=== PATIENT | female | born 1945 | race Caucasian/White ===

== ENCOUNTER 2018-02-26 01:21 | Outpatient (CLI) | payer MEDICARE, OTHER, SELFPAY ==
--- NOTE | 2018-02-26 10:20 | DI.MAMMO_ITS ---
SYMPTOMS/DIAGNOSIS: SCREENING, Z12.31 MAMMOGRAM: Mammograms were interpreted according to the usual protocol including computer analysis with CAD system, tomosynthesis and C view imaging. The breast tissue is of moderate radiodensity. When compared with prior images again noted are the two small well circumscribed nodules in the lateral portion of the left breast unchanged. There are no suspicious calcifications in either breast. SUMMARY: No evidence of malignancy, Category I, yearly screening mammography is recommended. Breast density Category B. SA ASSESSMENT OF FINDINGS: Negative. Category 1. Patient will receive a letter notifying them of these results. BI-RADS category B. There are scattered areas of fibroglandular density.
[2018-02-26 10:38] LABS: ALT 31 U/L (12-78); AST 29 U/L (15-37); Albumin 3.8 g/dL (3.4-5.0); Alkaline Phosphatase 129 U/L (46-116); Anion Gap 11.5 mmol/L (3-11); BUN 14 mg/dL (7-18); Bilirubin, Total 0.7 mg/dL (0.2-1.0); CO2 25.5 mmol/L (21.0-32.0); CREATININE 0.64 mg/dL (0.55-1.02); Calcium 8.9 mg/dL (8.5-10.1); Chloride 104 mmol/L (98-107); Glucose 110 mg/dL (70-100); Magnesium 1.9 mg/dL (1.8-2.4); Potassium 3.8 mmol/L (3.5-5.1); Sodium 141 mmol/L (136-145); TSH (W/Ref FT4) 1.03 uIU/mL (0.358-3.74); Total Protein 6.9 g/dL (6.4-8.2)
[2018-02-26 14:04] LABS: Cholesterol 183 mg/dL (50-200); HDL Cholesterol 65 mg/dL (40-60); LDL CHOLESTEROL 104 mg/dL (<100); Triglyceride 107 mg/dL (30-150); Vitamin B12 1552 pg/mL (193-986)
== END 2018-02-26 01:41 ==
PROVIDERS: PCP Family Medicine; Visit Provider Family Medicine
DX: Z12.31 Encounter for screening mammogram for malignant neoplasm of breast (principal); D51.1 Vitamin B12 deficiency anemia due to selective vitamin B12 malabsorption with proteinuria; E78.5 Hyperlipidemia, unspecified; E03.9 Hypothyroidism, unspecified; I10 Essential (primary) hypertension
CPT/HCPCS: 36415; 77063; 77067; 80053; 80061; 83721; 82607; 83735; 84443

== ENCOUNTER 2018-11-24 01:00 | Outpatient (CLI) | payer MEDICARE, OTHER, SELFPAY ==
--- NOTE | 2018-11-24 07:42 | DI.US_ITS ---
SYMPTOM/DIAGNOSIS: RUQ ABD PAIN, R10.9 ABDOMEN ULTRASOUND: Routine examination was performed. Comparison is made with 02/01/14. The aorta is of normal caliber. The inferior vena cava is unremarkable. The liver measures 15 cm. in length. No hepatic mass is seen. The patient is status post cholecystectomy. The common duct is within normal limits at .7 cm. The pancreas and spleen are unremarkable. The kidneys are normal in size. No solid renal mass, calculus or obstruction is seen. There are echolucent areas in the pelves bilaterally. These can be visualized on prior examinations and likely reflect parapelvic cysts. IMPRESSION: No evidence of an acute abdomen. Status post cholecystectomy and bilateral parapelvic cysts.
--- NOTE | 2018-11-24 07:42 | DI.RAD_ITS ---
SYMPTOM/DIAGNOSIS: LOWER THORACIC PAIN, M54.6 THORACIC SPINE: AP and lateral views. There is normal alignment. Moderately severe degenerative changes are present throughout the thoracic spine. No acute fractures or subluxations are seen. The paraspinal lines appear unremarkable. IMPRESSION: Moderately severe degenerative changes in the thoracic spine.
== END 2018-11-24 01:20 ==
PROVIDERS: PCP Family Medicine; Visit Provider Family Medicine
DX: R10.11 Right upper quadrant pain (principal); M54.6 Pain in thoracic spine; Z90.49 Acquired absence of other specified parts of digestive tract; M47.814 Spondylosis without myelopathy or radiculopathy, thoracic region
CPT/HCPCS: 72072; 76700

== ENCOUNTER 2019-01-22 01:52 | Outpatient (CLI) | payer MEDICARE, OTHER, SELFPAY ==
[2019-01-22 10:21] LABS: HCT 39.2 % (36.0-46.0); HGB 12.8 g/dL (12.0-15.5); Mean Corp. HGB Concentration 32.7 g/dL (32.0-36.0); Mean Corpuscular Hemoglobin 29.6 pg (27.0-33.0); Mean Corpuscular Volume 90.7 fL (80-95); Mean Platelet Volume 9.4 fL (8.0-11.0); Platelet Count 271 x1000/uL (130-400); RBC 4.32 m/cumm (4.00-5.20); RBC Distribution Width 13.7 % (11.7-14.6); White Blood Cell Count 6.63 k/cumm (4.4-10.8)
[2019-01-22 11:11] LABS: Magnesium 2.1 mg/dL (1.8-2.4); TSH (W/Ref FT4) 0.84 uIU/mL (0.36-3.74)
== END 2019-01-22 02:12 ==
PROVIDERS: PCP Family Medicine; Visit Provider Family Medicine
DX: I10 Essential (primary) hypertension (principal); J45.909 Unspecified asthma, uncomplicated
CPT/HCPCS: 36415; 85027; 83735; 84443

== ENCOUNTER 2019-07-05 11:19 | Outpatient (CLI) | payer MEDICARE, OTHER, SELFPAY ==
--- NOTE | 2019-07-05 14:00 | DI.RAD_ITS ---
EXAM: XR LUMBAR SPINE COMPLETE CLINICAL HISTORY: chronic right LBP, M47.899 SPONDYLOSIS TECHNIQUE: COMPARISON: LUMBAR SPINE COMPLETE from 02/01/2014 FINDINGS: Five views were obtained. There are moderate degenerative changes of the SI joints bilaterally. The re are prominent hypertrophic degenerative changes of the facet joints throughout the lumbar region. There is slight anterior pseudo spondylolisthesis of L4 on L5 and also of L5-S1, probably unchanged from prior films of January 2014. Vertebral endplate hypertrophic changes noted in lower thoracic and upper lumbar region. These findings spare the T12-L1 level. No evidence of fracture. No gross spondylolysis. IMPRESSION: Degenerative changes, little interval change in appearance from 2013. No evidence of fracture.
--- NOTE | 2019-07-05 14:00 | DI.RAD_ITS ---
EXAM: XR HIP LT COMPLETE AND AP PELVIS CLINICAL HISTORY: HIP PAIN M25.559 TECHNIQUE: Two views were obtained. COMPARISON: THORACIC SPINE from 03/27/2015 FINDINGS: There is mild narrowing of the cartilaginous joint spaces of both hips. There are prominent hypertro phic changes of the acetabula and to a lesser degree the femoral heads bilaterally, right greater basil n left. No other significant bony abnormality seen. IMPRESSION: Moderate bilateral hip DJD.
--- NOTE | 2019-07-05 14:00 | DI.RAD_ITS ---
EXAM: XR CERVICAL SPINE COMP 4-5V CLINICAL HISTORY: neck left shoulder pain, M54.2 CERVICALGIA TECHNIQUE: COMPARISON: No exams were available for comparison FINDINGS: Five views were obtained. Prevertebral soft tissues appear intact. Intervertebral disc spaces are f airly well maintained. There are moderate hypertrophic facet and endplate degenerative changes. Bowen ral foramina appear fairly well maintained as visualized except for possible slight narrowing of righ t 4 5 neural foramen. No fracture. No gross erosive or destructive lesion. IMPRESSION: Cervical spine degenerative changes as described above.
== END 2019-07-05 11:39 ==
PROVIDERS: PCP Family Medicine; Visit Provider Family Medicine
DX: M25.552 Pain in left hip (principal); M54.5 Low back pain; M54.2 Cervicalgia; M47.26 Other spondylosis with radiculopathy, lumbar region; M47.27 Other spondylosis with radiculopathy, lumbosacral region; M47.28 Other spondylosis with radiculopathy, sacral and sacrococcygeal region; M16.0 Bilateral primary osteoarthritis of hip; M47.22 Other spondylosis with radiculopathy, cervical region
CPT/HCPCS: 72050; 72110; 73502

== ENCOUNTER 2019-07-13 12:55 | Outpatient (CLI) | payer MEDICARE, OTHER, SELFPAY ==
--- NOTE | 2019-07-30 09:44 | ZIOP_ITS ---
Date of service: 07/29/19 Time of Service: 12:26 ZIO Patch Social Work Assistant Note: There is a 2-week ZIO patch ordered for the indication of bradycardia. ?The patient was in normal sinus rhythm for majority of the recording. (Maximum heart rate 160, minimum heart rate 50, average heart rate 66) ?There were 44 episodes of supraventricular tachycardia with the longest lasting 13 seconds. ?There were occasional (2.9%) supraventricular ectopic beats. ?There were no episodes of ventricular tachycardia and rare (less than 1%) single ventricular ectopic beats. ?Patient triggered events were associated with sinus rhythm clinical supraventricular ectopic beats and premature ventricular contractions. ?There were no episodes of atrial fibrillation, no pauses greater than 3 seconds and no evidence of high degree heart block. CC: Dictated by: KAREL VERONICA MD Dictated:: 1226 <Electronically signed by Karel Veornica M.D.> 07/29/19 1229 Transcribed Date: 07/29/19 Transcribed Time: 1226By: CIARRA This report was cut and pasted from [id number] and attached to the correct V# 07/29 @ 0985
== END 2019-07-13 13:15 ==
PROVIDERS: PCP Family Medicine; Visit Provider Family Medicine
DX: R00.1 Bradycardia, unspecified (principal); I47.1 Supraventricular tachycardia; I49.3 Ventricular premature depolarization
CPT/HCPCS: 0296T

== ENCOUNTER 2019-07-29 12:26 | Outpatient (CLI) | payer MEDICARE, OTHER, SELFPAY | END 2019-07-29 12:46 | PROVIDERS: PCP Family Medicine; Referring Provider Family Medicine; Visit Provider Internal Medicine Cardiovascular Disease | DX: R00.1 Bradycardia, unspecified (principal); I47.1 Supraventricular tachycardia; I49.3 Ventricular premature depolarization | CPT/HCPCS: 0298T ==

== ENCOUNTER 2019-10-08 01:40 | Outpatient (CLI) | payer MEDICARE, OTHER, SELFPAY ==
[2019-10-08 12:21] LABS: TSH (W/Ref FT4) 0.38 uIU/mL (0.36-3.74); Vitamin B12 1297 pg/mL (193-986)
== END 2019-10-08 02:00 ==
PROVIDERS: PCP Family Medicine; Visit Provider Family Medicine
DX: E03.9 Hypothyroidism, unspecified (principal); E53.8 Deficiency of other specified B group vitamins
CPT/HCPCS: 36415; 82607; 84443

== ENCOUNTER 2019-11-02 01:19 | Outpatient (CLI) | payer MEDICARE, OTHER, SELFPAY ==
[2019-11-02 10:40] LABS: HCT 40.7 % (36.0-46.0); HGB 13.6 g/dL (12.0-15.5); Mean Corp. HGB Concentration 33.4 g/dL (32.0-36.0); Mean Corpuscular Hemoglobin 30.2 pg (27.0-33.0); Mean Corpuscular Volume 90.4 fL (80-95); Mean Platelet Volume 9.7 fL (8.0-11.0); Platelet Count 268 x1000/uL (130-400); RBC Distribution Width 13.8 % (11.7-14.6); White Blood Cell Count 6.71 k/cumm (4.4-10.8)
[2019-11-02 13:54] LABS: ALT 27 U/L (14-59); AST 32 U/L (15-37); Albumin 3.9 g/dL (3.4-5.0); Alkaline Phosphatase 105 U/L (46-116); BUN 13 mg/dL (7-18); Bilirubin, Total 0.6 mg/dL (0.2-1.0); CREATININE 0.88 mg/dL (0.55-1.02); Calcium 9.3 mg/dL (8.5-10.1); Chloride 107 mmol/L (98-107); Glucose 115 mg/dL (74-106); Potassium 4.5 mmol/L (3.5-5.1); Sodium 144 mmol/L (136-145); Vitamin B12 1020 pg/mL (193-986)
== END 2019-11-02 01:39 ==
PROVIDERS: PCP Family Medicine; Visit Provider Family Medicine
DX: E53.8 Deficiency of other specified B group vitamins (principal); E78.5 Hyperlipidemia, unspecified; I10 Essential (primary) hypertension
CPT/HCPCS: 36415; 80053; 85027; 82607

== ENCOUNTER 2020-02-15 00:35 | Outpatient (CLI) | payer MEDICARE, OTHER, SELFPAY ==
--- NOTE | 2020-02-15 12:49 | DI.MAMMO_ITS ---
EXAM: MAMMO SCREENING CLINICAL HISTORY: screening,Z12.39 TECHNIQUE: Mammograms were interpreted according to the usual protocol including computer analysis w [employer] CAD system, tomosynthesis and C-view imaging. COMPARISON: FINDINGS: The breasts are of moderate density. There are few small areas of nodularity seen bilaterally consis tent with intramammary lymph nodes or cysts. There is an irregular breast mass in the lateral aspect of the left breast, on prior examinations including February 2018 this appeared well-circumscribed, o n today's examination there is question of increased intralesional radiodensity and irregular border. Spot compression views and ultrasound requested further evaluation. No other significant change seen. IMPRESSION: Additional mammographic views of left breast and left breast ultrasound requested as described above . BI-RADS Category 0 - Assessment Incomplete: Need additional imaging evaluation Breast Density - Category B - Scattered areas of fibroglandular density
== END 2020-02-15 00:55 ==
PROVIDERS: PCP Family Medicine; Visit Provider Family Medicine
DX: Z12.31 Encounter for screening mammogram for malignant neoplasm of breast (principal); R92.8 Other abnormal and inconclusive findings on diagnostic imaging of breast
CPT/HCPCS: 77063; 77067

== ENCOUNTER 2020-02-18 04:02 | Outpatient (CLI) | payer MEDICARE, OTHER, SELFPAY ==
--- NOTE | 2020-02-18 | DI.US_ITS ---
EXAM: MG MAMMO SCREEN CALL BACK UNI CLINICAL HISTORY: F/U MAMMO, IRREGULAR LT BREAST MASS,? INCREASED RADIODENSITY AND IRREGULAR TECHNIQUE: Mammograms were interpreted according to the usual protocol including computer analysis w ith CAD system, tomosynthesis and C-view imaging. COMPARISON: FINDINGS: Additional mammographic views of the left breast and left breast ultrasound are interpreted in conjun ction. These examinations were obtained to evaluate an area nodularity of the lateral retroareolar p ortion the breast seen recent mammogram. Additional mammographic views show a high density somewhat irregular border lesion. This measures up to about 11 millimeters in diameter. Ultrasound shows a 7 millimeter in diameter irregular predominantly hypoechoic mass with posterior acoustic shadowing. T he findings are indeterminate for malignancy, this is a new lesion biopsy is recommended. IMPRESSION: Biopsy recommended for new indeterminate suspicious left breast lesion as described above. Biopsy ma y be accomplished with ultrasound guidance. BI-RADS Category 4 - Suspicious Abnormality: Biopsy should be considered Breast Density - Category B - Scattered areas of fibroglandular density
== END 2020-02-18 04:22 ==
PROVIDERS: PCP Family Medicine; Visit Provider Family Medicine
DX: R92.8 Other abnormal and inconclusive findings on diagnostic imaging of breast (principal)
CPT/HCPCS: 76642; 77063; 77067

== ENCOUNTER 2020-09-19 13:44 | Outpatient (REF) | payer MEDICARE, OTHER, SELFPAY ==
[2020-09-19 22:19] LABS: ALT 34 U/L (14-59); AST 30 U/L (15-37); Albumin 3.8 g/dL (3.4-5.0); Alkaline Phosphatase 120 U/L (46-116); Anion Gap 8.3 mmol/L (3-11); BUN 11 mg/dL (7-18); Bilirubin, Total 0.6 mg/dL (0.2-1.0); CO2 26.7 mmol/L (21.0-32.0); CREATININE 0.6 mg/dL (0.55-1.02); Calcium 8.7 mg/dL (8.5-10.1); Calculated LDL 63 mg/dL (<100); Chloride 107 mmol/L (98-107); Cholesterol 148 mg/dL (<200); Glucose 108 mg/dL (74-106); HDL Cholesterol 63 mg/dL (40-60); Potassium 4.4 mmol/L (3.5-5.1); Sodium 142 mmol/L (136-145); TSH (W/Ref FT4) 0.26 uIU/mL (0.36-3.74); Total Protein 6.6 g/dL (6.4-8.2); Triglyceride 111 mg/dL (<150); Vitamin B12 1074 pg/mL (193-986)
[2020-09-19 22:52] LABS: FREE T4 1.12 ng/dL (0.76-1.46)
[2020-09-21 01:12] LABS: Vitamin D 25 Total 63.7 ng/mL (30-100)
== END 2020-09-19 13:45 | disposition home or self-care (01) ==
LOC: LBN 13:44
PROVIDERS: PCP Family Medicine; Visit Provider Family Medicine
DX: I10 Essential (primary) hypertension (principal); I25.10 Atherosclerotic heart disease of native coronary artery without angina pectoris; E03.9 Hypothyroidism, unspecified; D51.1 Vitamin B12 deficiency anemia due to selective vitamin B12 malabsorption with proteinuria; E55.9 Vitamin D deficiency, unspecified; M85.80 Other specified disorders of bone density and structure, unspecified site
CPT/HCPCS: 80053; 80061; 82306; 82607; 84439; 84443

== ENCOUNTER 2021-07-06 04:01 | Outpatient (CLI) | payer MEDICARE, OTHER, SELFPAY ==
[2021-07-06 13:06] LABS: ALT 34 U/L (14-59); AST 32 U/L (15-37); Albumin 3.9 g/dL (3.4-5.0); Alkaline Phosphatase 138 U/L (46-116); Anion Gap 6.7 mmol/L (3-11); BUN 12 mg/dL (7-18); Bilirubin, Total 0.6 mg/dL (0.2-1.0); CO2 30.3 mmol/L (21.0-32.0); CREATININE 0.6 mg/dL (0.55-1.02); Calcium 8.6 mg/dL (8.5-10.1); Chloride 104 mmol/L (98-107); Glucose 106 mg/dL (74-106); Potassium 4.5 mmol/L (3.5-5.1); Sodium 141 mmol/L (136-145); TSH (W/Ref FT4) 0.76 uIU/mL (0.36-3.74); Vitamin B12 1045 pg/mL (193-986)
== END 2021-07-06 04:02 | disposition home or self-care (01) ==
LOC: LBO 04:01
PROVIDERS: PCP Family Medicine; Visit Provider Family Medicine
DX: D51.1 Vitamin B12 deficiency anemia due to selective vitamin B12 malabsorption with proteinuria (principal); E03.9 Hypothyroidism, unspecified; E78.5 Hyperlipidemia, unspecified; I10 Essential (primary) hypertension
CPT/HCPCS: 36415; 80053; 82607; 84443

== ENCOUNTER 2022-03-08 01:51 | Outpatient (CLI) | payer MEDICARE, SELFPAY ==
--- OUTSIDE RECORDS SUMMARY | 2022-03-08 01:55 | XMS_ITS | Encounter Summary ---
:1945 Author Organization [facility] [place] [address] Care Team Providers Name Role Phone Quin Rojas MD Primary Care Provider Encounter Details Date Type Department Care Team Description 02/15/2020 Ancillary Procedure Radiology Library at Quin Biggs MD [facility] [address] [address] [place], [place] [phone] (Wo rk) [phone] Social History Tobacco Use Types Packs/Day Years Used Date Never Smoker Smokeless Tobacco: Never Used Alcohol Use Standard Drinks/Week Comments Yes 0 (1 standard drink = 0.6 oz pure alcoho l) rare at a holiday Alcohol Habits Answer Date Recorded How often do you have a drink containing alcohol? Monthly or less 02/13/2019 How many drinks containing alcohol do you have on a 1 or 2 02/13/2019 typical day when you are drinking? How often do you have six or more drinks on one Never 02/13/2019 occasion? Comment: rare at a holiday 02/13/2019 Sex Assigned at Date Recorded Not on file documented as of this encounter Plan of Treatment Upcoming Encounters Date Type Specialty Care Team Description 09/02/2022 Office Visit Cardiology Patrice Burkett MD [facility] [address] [place], [place] [address] (Wo rk) 11/25/2022 Office Visit Dermatology Kole Mccain MD [address] DERMATOLOGY [place], [place] [address] (Wo rk) documented as of this encounter Procedures Procedure Name Priority Date/Time Associated Diagnosis Comme nts FILM LIBRARY Routine 02/15/2020 12:00 AM Results for this STORAGE ONLY MAMMO EDT procedure are in the results section. documented in this encounter Results Film Library- Storage Only Mammo (02/15/2020 12:00 AM EDT) Specimen (Source) Anatomical Location Collection Method / Collectio n Time Received Time / Laterality Volume Narrative RAD - 02/29/2020 10:48 AM EDT This exam is auto-finalizing. It's purpo se is for storage only. Quin Rojas MD G FILM LIBRARY ORDERABLES Performing Organization Address City/State/ZIP Code Phon e Number [place], [place] documented in this encounter Visit Diagnoses Not on filedocumented in this encounter Care Teams Temple Meat Cutter Relationship Specialty Start Date End Date Quin Rojas MD PCP - General 04/03/[address] [place] [address] [place] [address] documented as of this encounter
--- OUTSIDE RECORDS SUMMARY | 2022-03-08 01:55 | XMS_ITS | Encounter Summary ---
:1945 Author Organization [facility] [place] [address] Care Team Providers Name Role Phone Quin Rojas MD Primary Care Provider Reason for Visit Reason Comments Medication Refill Encounter Details Date Type Department Care Team Description 12/13/2020 Refill Cardiology at [facility] Patrice Burkett MD Medication Refill [address] [place] [address] [place] [address] [phone] (Wo rk) Social History Tobacco Use Types Packs/Day Years Used Date Never Smoker Smokeless Tobacco: Never Used Alcohol Use Standard Drinks/Week Comments Not Currently 0 (1 standard drink = 0.6 oz [...] 09/02/2022 Office Visit Cardiology Patrice Burkett MD [facility] [address] [place], [place] [address] (Wo rk) 11/25/2022 Office Visit Dermatology Kole Mccain MD [address] [facility] DERMATOLOGY [place], [place] [address] (Wo rk) documented as of this encounter Visit Diagnoses Diagnosis Atherosclerosis of pauma coronary arter y of pauma heart without angina pectoris documented in this encounter Care Teams Manager Ob Relationship Specialty Start Date End Date Quin Rojas MD PCP - General 04/03/[address] [place] [address] documented as of this encounter
--- OUTSIDE RECORDS SUMMARY | 2022-03-08 01:55 | XMS_ITS | Encounter Summary ---
:1945 [place] [address] Care Team Providers Name Role Phone Quin Rojas MD Primary Care Provider Encounter Details Date Type Department Care Team Description 01/28/2020 Refill Cardiology at [facility] Patrice Burkett MD [address] [place] [address] [place] [address] [place] [address] [phone] (Wo rk) Social History Tobacco Use Types [...] on file documented as of this encounter Miscellaneous Notes Telephone Encounter - Arlene Bills - 01/28/2020 10:06 AM EDT Patient called asking for a [phone] documented in this encounter Plan of Treatment Upcoming Encounters Date Type Specialty Care Team Description 09/02/2022 Office Visit Cardiology Patrice Burkett MD [facility] [address] [place], [place] [address] (Wo rk) 11/25/2022 Office Visit Dermatology Kole Mccain MD [address] [place] [address] DERMATOLOGY [place], [place] [address] (Wo rk) documented as of this encounter Visit Diagnoses Diagnosis Chest pain, unspecified type documented in this encounter Care Teams Audiovisual Aids Technician Relationship Specialty Start Date End Date Quin Rojas MD PCP - General 04/03/[address] [place] [address] documented as of this encounter
--- OUTSIDE RECORDS SUMMARY | 2022-03-08 01:55 | XMS_ITS | Encounter Summary ---
:1945 Author Organization [facility] [place] [address] Care Team Providers Name Role Phone Quin Rojas MD Primary Care Provider Reason for Visit Reason Comments Medication Refill Encounter Details Date Type Department Care Team Description 10/01/2021 Refill Dermatology at [facility] Kole Chavis MD [address] [facility] [address] [place] [address] DERMATOLOGY [phone] [place], [place] [address] (Wo rk) Social History Tobacco Use Types [...] 09/02/2022 Office Visit Cardiology Patrice Burkett MD [facility] [address] [place], [place] [address] (Wo rk) 11/25/2022 Office Visit Dermatology Kole Mccain MD [address] [facility] DERMATOLOGY [place], [place] [address] (Wo rk) documented as of this encounter Visit Diagnoses Not on filedocumented in this encounter Care Teams Guest Service Host Relationship Specialty Start Date End Date Quin Rojas MD PCP - General 04/03/[address] [place], [place] [address] documented as of this encounter
--- OUTSIDE RECORDS SUMMARY | 2022-03-08 01:55 | XMS_ITS | Encounter Summary ---
:1945 Author Organization [facility] [address] Care Team Providers Name Role Phone Quin Rojas MD Primary Care Provider Encounter Details Date Type Department Care Team Description 02/21/2020 [facility] [place] [phone] Social History Tobacco Use Types Packs/Day Years [...] this encounter Miscellaneous Notes Telephone Encounter - Shikha Herrera - 02/21/2020 1:19 PM EDT Albina Thompson 1945 [id number] Referring provider: Quin Rojas Date of Referral: 02/21/20 Please review outside breast imaging dated: 02/18/20 Reason for exam and clinical history:Left breast mass Category:4 Questions to be answered:Bx more imaing Sending Institution: [facility] Patient would like treatment at:[facility] [place] Call pt at: documented in this encounter Plan of Treatment Upcoming Encounters Date Type Specialty Care Team Description 09/02/2022 Office Visit Cardiology Patrice Burkett MD [facility] [place] [address] [place] [address] (Wo rk) 11/25/2022 Office Visit Dermatology Kole Mccain MD [address] [facility] DERMATOLOGY [place], [place] [address] (Wo rk) documented as of this encounter Visit Diagnoses Not on filedocumented in this encounter Care Teams Waste Collection Driver Relationship Specialty Start Date End Date Quin Rojas MD PCP - General 04/03/[address] [place], [place] [address] documented as of this encounter
--- OUTSIDE RECORDS SUMMARY | 2022-03-08 01:55 | XMS_ITS | Encounter Summary ---
:1945 [place] [address] Care Team Providers Name Role Phone Quin Rojas MD Primary Care Provider Reason for Visit Reason Comments Coronary Artery Disease Palpitations Encounter Details Date Type Department Care Team Description 03/05/2022 Office Visit Cardiology at Patrice Burkett, ASCVD (ar teriosclerotic cardiovascular disease); Barak JIMENEZ Palpitations [address] [place], [place], [place] [phone] Social History Tobacco Use Types Packs/Day Years [...] on file documented as of this encounter Last Filed Vital Signs Vital Sign Reading Time Taken Comments Blood Pressure 132/58 03/05/2022 2:56 PM EDT Pulse 83 03/05/2022 2:56 PM EDT Temperature - - Respiratory Rate 18 03/05/2022 2:56 PM EDT Oxygen Saturation - - Inhaled Oxygen Concentration - - Weight 63.5 kg (140 lb) 03/05/2022 2:56 PM EDT Height 152.4 cm (5') 03/05/2022 2:56 PM EDT Body Mass Index 27.34 03/05/2022 2:56 PM EDT documented in this encounter Progress Notes Patrice Burkett MD - 03/05/2022 2:40 PM EDT Images from the original note were not included. Subjective: Patient ID: Albina Thompson is a 76 y.o. female who presents on follow-up for: Chief Complaint Patient presents with ??? Coronary Artery Disease ??? Palpitations HPI Last seen by me 08/2021, at which time stress testing was offered for CCS I-ii angina. However, this was not obtained. Since then, she has been doing well. She has been bsuy raking leaves and preparing for winter- this level of activity is without angina nor untoward dyspnea. bp well controlled Current Outpatient Medications: ??? donepeziL (Aricept) 5 mg Tablet, Take 5 mg by mouth daily. Start with one half tablet daily, Disp: , Rfl: ??? amoxicillin-clavulanate (Augmentin) 875-125 mg Tablet, Take 1 tablet by mouth 2 times daily., Disp: , Rfl: ??? nitroGLYcerin (Nitrostat) 0.4 mg Tablet, Sublingual, PLACE 1 TABLET UNDER THE TONGUE EVERY 5 MINUTES NEEDED FOR CHEST PAIN(MAX 3 DOSES PER DAY), Disp: 25 tablet, Rfl: 11 ??? meclizine (Antivert) 25 mg Tablet, Take 25 mg by mouth 3 times daily as needed for Dizziness., Disp: , Rfl: ??? multivitamin Capsule, Take 1 tablet by mouth., Disp: , Rfl: ??? cyanocobalamin, Vitamin B-12, (Vitamin B-12) 1,000 mcg Tablet, Take 1,000 mcg by mouth daily., Disp: , Rfl: ??? ubiquinone (coenzyme Q10) 10 mg Capsule, Take 10 mg by mouth nightly., Disp: , Rfl: ??? metoprolol succinate XL (Toprol-XL) 25 mg Tablet Sustained Release 24 hr, Take 12.5 mg by mouth daily., Disp: , Rfl: ??? rosuvastatin (Crestor) 5 mg Tablet, Take 1 tablet by mouth nightly., Disp: 90 tablet, Rfl: 3 ??? VENTOLIN HFA 90 mcg/actuation HFA Aerosol Inhaler, Inhale 2 puffs into the lungs 2 times daily as needed., Disp: , Rfl: 1 ??? fluticasone (FLONASE) 50 mcg/actuation [place], Suspension, 2 sprays by Each Nare route nightly., Disp: , Rfl: ??? cycloSPORINE (RESTASIS) 0.05 % Dropperette, 1 drop 2 times daily., Disp: , Rfl: ??? aspirin 81 mg Tablet, Delayed Release (E.C.), Take 81 mg by mouth daily., Disp: , Rfl: ??? cholecalciferol, Vitamin D3, 50 mcg (2,000 unit) Capsule, Take 2,000 Units by mouth daily., Disp: , Rfl: ??? ADVAIR DISKUS 250-50 mcg/dose Disk with Device, Inhale 1 puff into the lungs 2 times daily., Disp: , Rfl: 0 ??? montelukast (SINGULAIR) 10 mg Tablet, Take 10 mg by mouth nightly., Disp: , Rfl: 1 ??? levothyroxine (SYNTHROID) 75 mcg tablet, 75mcg, PO, Once daily, Disp: , Rfl: Patient Active Problem List Diagnosis ??? Uterine prolapse ??? Osteopenia ??? Lactose intolerance ??? Palpitations 2013: negative Holter 03/2019: There were many patient diary events: - Symptoms included: arms weak, quick involuntary breaths, palpitations, short of breath/heavy chest feeling, lightheaded/short of breath, palpitations, short of breath - The majority of these events were correlated with normal sinus rhythm without significant arrhythmia nor ectopy. ??Chest heaviness was described with very ephemeral atrial bigeminy. Conclusion(s): ?? Predominant rhythm is sinus, with normal range and circadian variation No significant supraventricular or ventricular ectopy. ??Of note, the vast majority of SVE was asymptomatic There is no clear electrophysiologic nidus to most of the patient's reported symptoms ??? Hypothyroidism ??? Reflux esophagitis ??? ASCVD (arteriosclerotic cardiovascular disease) 2005: 2 stents to mid LAD and stent to osteal D2 (bifurcation lesion) at [facility] 01/2018- ST II, HR 126, BP 203/72, CP, 1 mm inf and lat ST depressions, normal perfusion and wall notion Norvasc led to diarrhea, Imdur to dizziness/hypotension Cardiac Catheterization: (02/2019) Co dominance Access: 6F RRA Indication: CCS III angina LVEDP 8 Artery Lesion Intervention LM nl LAD p 70 m 70 (ISR) Os D2 70 3.5 x 15 Carter 2.75 x 12 [place] POBA --> 45% residual LCx Mid 85 prox OM1 80 2.75 x 24 Promus 2.5 x 16 Promus RCA Cath 04/2019: without new disease ??? Asthma ??? Hyperlipidemia ??? Rosacea conjunctivitis ??? Primary fibromyalgia syndrome ??? Generalized osteoarthrosis Objective: BP 132/58 (BP Location (NBP): Left arm, Patient Position: Sitting, BP Cuff Sizes: Adult (25-34 cm)) Pulse 83 Resp 18 Ht 152.4 cm (5') Wt 63.5 kg (140 lb) LMP (LMP Unknown) BMI 27.34 kg/m?? Gen: pleasant female in NAD Cor: rrr, s1/s2 of nl character and amplitude, no m/r/g. Estimated RAP not elevated. Carotids with normal upstroke without bruit. Pulm: CTAB. Normal diaphragmatic movement without use of accessory muscles EKG: nsr with pac Assessment and Plan: ASCVD (arteriosclerotic cardiovascular disease) No angina per history - Anti-Thrombosis: asa 81. - Statin: crestor 5 (max tolerated) - Anti-anginals: GTN PRN, toprol 12.5. If when starting Aricept it is noted that the HR decreases to < 60, can stop the toprol Palpitations No issues on current regimen - continue toprol RTC 6p months Patrice Burkett MD documented in this encounter Miscellaneous Notes Assessment & Plan Note - Patrice Burkett MD - 03/05/2022 3:26 PM EDTAssociated Problem(s): Palpitations No issues on current regimen - continue toprol Assessment & Plan Note - Patrice Burkett MD - 03/05/2022 3:25 PM EDTAssociated Problem(s): ASCVD (arteriosclerotic cardiovascular disease) No angina per history - Anti-Thrombosis: asa 81. - Statin: crestor 5 (max tolerated) - Anti-anginals: GTN PRN, toprol 12.5. If when starting Aricept it is noted that the HR decreases to < 60, can stop the toprol documented in this encounter Plan of Treatment Upcoming Encounters Date Type Specialty Care Team Description 09/02/2022 Office Visit Cardiology Patrice Burkett MD [facility] [address] [place] [address] (Wo rk) 11/25/2022 Office Visit Dermatology Kole Mccain MD [address] [facility] DERMATOLOGY [place], [place] [address] (Wo rk) documented as of this encounter Visit Diagnoses Diagnosis ASCVD (arteriosclerotic cardiovascular d isease) Unspecified cardiovascular disease Palpitations documented in this encounter Care Teams A And P Technician Relationship Specialty Start Date End Date Quin Rojas MD PCP - General 04/03/[address] [place] [address] documented as of this encounter
--- OUTSIDE RECORDS SUMMARY | 2022-03-08 01:55 | XMS_ITS | Encounter Summary ---
:1945 Author Organization [facility] [place] [address] Care Team Providers Name Role Phone Quin Rojas MD Primary Care Provider Reason for Visit Reason Comments Coronary Artery Disease Encounter Details Date Type Department Care Team Description [facility] Atheroscl erosis of [place] coronary artery of [place] heart without angina pectoris; Barak JIMENEZ Palpitations [address] [facility] [address] [place], [place], [place] [phone] Social History Tobacco [...] Sign Reading Time Taken Comments Blood Pressure 130/64 01/25/2020 3:24 PM EDT Pulse 94 01/25/2020 3:24 PM EDT Temperature - - Respiratory Rate 18 01/25/2020 3:24 PM EDT Oxygen Saturation - - Inhaled Oxygen Concentration - - Weight 67.6 kg (149 lb) 01/25/2020 3:24 PM EDT Height 154.9 cm (5' 1) 01/25/2020 3:24 PM EDT Body Mass Index 28.15 01/25/2020 3:24 PM EDT documented in this encounter Progress Notes Patrice Burkett MD - 01/25/2020 3:20 PM EDT Images from the original note were not included. Subjective: Patient ID: Albina Thompson is a 74 y.o. female who presents on follow-up for: Chief Complaint Patient presents with ??? Coronary Artery Disease HPI Last seen by me 08/2019 via telephony, at which time midodrine was decreased to 2.5 due to HTN episodes. Since then, midodrine has been weaned off successfully without further orthostasis. She remaisn active, cleaning up the yard of brush with her without exertional chest pain, dyspnea, presyncope. Denies LH, syncope, palpitations, orthopnea, pnd, weight gain, edema. She notes that sometimes durin g strenuous activity she will have to stop and rest. No bleeding on dapt Review of Systems Constitutional, cardiac, respiratory systems otherwise negative Current Outpatient Medications: ??? cyanocobalamin, Vitamin B-12, (Vitamin B-12) 1,000 mcg Tablet, Take 1,000 mcg by mouth daily., Disp: , Rfl: ??? ubiquinone (coenzyme Q10) 10 mg Capsule, Take 10 mg by mouth nightly., Disp: , Rfl: ??? metoprolol succinate XL (Toprol-XL) 25 mg Tablet Sustained Release 24 hr, Take 25 mg by mouth daily. Dose as of November 03 was increased to 25 mg daily. Previous dosing was 12.5 mg (one half tablet) daily., Disp: , Rfl: ??? clopidogreL (Plavix) 75 mg Tablet, Take 1 tablet by mouth daily., Disp: 90 tablet, Rfl: 3 ??? rosuvastatin (Crestor) 5 mg Tablet, Take 1 tablet by mouth nightly., Disp: 90 tablet, Rfl: 3 ??? acetaminophen (TYLENOL) 500 mg Tablet, Take 1,000 mg by mouth every 6 hours as needed for Pain.,Disp: , Rfl: ??? VENTOLIN HFA 90 mcg/actuation HFA Aerosol Inhaler, Inhale 2 puffs into the lungs 2 times daily as needed., Disp: , Rfl: 1 ??? vit A/C/E ac/ZnOx/cupric oxide (EYE VITAMIN AND MINERALS ORAL), Take 1 capsule by mouth daily., Disp: , Rfl: ??? fluticasone (FLONASE) 50 mcg/actuation [place], Suspension, 2 sprays by Each Nare route nightly., Disp: , Rfl: ??? cycloSPORINE (RESTASIS) 0.05 % [place], 1 drop 2 times daily., Disp: , Rfl: ??? aspirin 81 mg Tablet, Delayed Release (E.C.), Take 81 mg by mouth daily., Disp: , Rfl: ??? cholecalciferol, Vitamin D3, (CHOLECALCIFEROL, VITAMIN D3,) 2,000 unit Capsule, Take 2,000 Unitsby mouth 2 times daily., Disp: , Rfl: ??? ADVAIR DISKUS 250-50 mcg/dose Disk with Device, Inhale 1 puff into the lungs 2 times daily., Disp: , Rfl: 0 ??? montelukast (SINGULAIR) 10 mg Tablet, Take 10 mg by mouth nightly., Disp: , Rfl: 1 ??? levothyroxine (SYNTHROID) 75 mcg tablet, 75mcg, PO, Once daily, Disp: , Rfl: ??? nitroGLYcerin (Nitrostat) 0.4 mg Tablet, Sublingual, Place 1 tablet under the tongue every 5 minutes as needed for Chest pain (maximum 3 per day). Indications: dispense bottle(s) of 25 tablet quantities, Disp: 25 tablet, Rfl: 11 ??? famotidine (Pepcid) 40 mg Tablet, Take 40 mg by mouth daily., Disp: , Rfl: Patient Active Problem List Diagnosis ??? Palpitations 2013: negative Holter 03/2019: There [...] the patient's reported symptoms ??? Hypothyroidism ??? Essential hypertension ??? Coronary atherosclerosis of [place] coronary artery 2005: 2 stents to mid LAD and stent to osteal D2 (bifurcation lesion[place] [facility] 01/[place]- ST II, HR 126, BP 203/72, CP, 1 mm inf and lat ST depressions, normal perfusion and wall notion Norvasc led to diarrhea, Imdur to dizziness/hypotension Cardiac Catheterization: (02/2019) Co dominance Access: 6F RRA Indication: CCS III angina LVEDP 8 Artery Lesion Intervention LM nl LAD p 70 m 70 (ISR) Os D2 70 3.5 x 15 [place] 2.75 x 12 [place] POBA --> 45% residual LCx Mid 85 prox OM1 80 2.75 x 24 Promus 2.5 x 16 Promus RCA Cath 04/2019: without new disease ??? Asthma ??? Hyperlipidemia ??? Posterior tibial tendon dysfunction Objective: BP 130/64 (BP Location (NBP): Left arm, Patient Position: Sitting, BP Cuff Sizes: Adult (25-34 cm)) Pulse 94 Resp 18 Ht 154.9 cm (5' 1) Wt 67.6 kg (149 lb) LMP (LMP Unknown) BMI 28.15 kg/m?? Gen: pleasant female in NAD Cor: rrr, s1/s2 of nl character and amplitude, no m/r/g. Estimated RAP not elevated. Carotids with normal upstroke without bruit. Pulm: CTAB. Normal diaphragmatic movement without use of accessory muscles Ab: soft, nt, nd Ext: no c/c/e. Dp/pt ++ Neuro: without focal deficit. Well kempt, normal affect. Circumferential speech Skin: WWP, no rashes nor ulcers TTE 11/2019: EF 57%, no wmas, no valve issues Assessment and Plan: Coronary atherosclerosis of [place] coronary artery No angina per history. - Anti-Thrombosis: asa 81, plavix 75. Will stop plavix at next visit (extra time on dapt given burden of stents placed) - Statin: crestor 5 (max tolerated) - Anti-anginals: toprol 25, GTN PRN Palpitations Historically, the palpitations have been accompanied by resting cp. Her angina was of classic exertional cp. - continue toprol 25 RTC 6 months Patrice Burkett MD documented in this encounter Miscellaneous Notes Assessment & Plan Note - Patrice Burkett MD - 01/30/2020 8:36 PM EDTAssociated Problem(s): Palpitations Historically, the palpitations have been accompanied by resting cp. Her angina was of classic exertional cp. - continue toprol 25 Assessment & Plan Note - Patrice Burkett MD - 01/30/2020 8:35 PM EDTAssociated Problem(s): ASCVD (arteriosclerotic cardiovascular disease) No angina per history. - Anti-Thrombosis: asa 81, plavix 75. Will stop plavix at next visit (extra time on dapt given burden of stents placed) - Statin: crestor 5 (max tolerated) - Anti-anginals: toprol 25, GTN PRN documented in this encounter Plan of Treatment Upcoming Encounters Date Type Specialty Care Team Description 09/02/2022 Office Visit Cardiology Patrice Burkett MD [facility] [address] [place], [place] [address] [place]) 11/25/2022 Office Visit Dermatology Kole Mccain MD [address] [facility] DERMATOLOGY [place], [place] [address] ([place]) documented as of this encounter Visit Diagnoses Diagnosis Atherosclerosis of n[place] coronary arter y of [place] heart without angina pectoris Palpitations documented in this encounter Care Teams Livestock Breeder Relationship Specialty Start Date End Date Quin Rojas MD PCP - General 04/03/[address] [place] [address] documented as of this encounter
--- OUTSIDE RECORDS SUMMARY | 2022-03-08 01:55 | XMS_ITS | Encounter Summary ---
:1945 Author Organization [facility] [place] [address] Care Team Providers Name Role Phone Quin Rojas MD Primary Care Provider Reason for Visit Reason Comments Coronary Artery Disease Encounter Details Date Type Department Care Team Description [facility] Atheroscl erosis of [place] coronary artery of [place] heart without angina pectoris; Barak JIMENEZ Palpitations [address] [facility] [address] [place], [place], [place] [phone] Social History Tobacco [...] Sign Reading Time Taken Comments Blood Pressure 132/57 07/25/2020 2:41 PM EDT Pulse 82 07/25/2020 2:41 PM EDT Temperature - - Respiratory Rate - - Oxygen Saturation - - Inhaled Oxygen Concentration - - Weight 68.9 kg (152 lb) 07/25/2020 2:41 PM EDT Height 153.7 cm (5' 0.5) 07/25/2020 2:41 PM EDT Body Mass Index 29.2 07/25/2020 2:41 PM EDT documented in this encounter Progress Notes Patrice Burkett MD - 07/25/2020 2:40 PM EDT Images from the original note were not included. Subjective: Patient ID: Albina Thompson is a 75 y.o. female who presents on follow-up for: Chief Complaint Patient presents with ??? Coronary Artery Disease HPI Last seen by me 01/2020, at which time no changes were made. Since then, she has been doing well. She has been able to shovel snow this year without having to stop for significant palpitations, breathlessness, nor angina. She endorses overall fatigue, especially in the setting of having to be home due to the virus Current Outpatient Medications: ??? famotidine (Pepcid) 40 mg Tablet, Take 40 mg by mouth daily., Disp: , Rfl: ??? cyanocobalamin, Vitamin B-12, [...] , Rfl: ??? fluticasone (FLONASE) 50 mcg/actuation [place], Suspension, 2 sprays by Each Nare route [...] day). Indications: dispense bottle(s) of 25 tablet quantities (Patient not taking: Reported on 07/25/2020), Disp: 25 tablet, Rfl: 11 Patient Active Problem List Diagnosis ??? Uterine [...] symptoms ??? Hypothyroidism ??? Reflux esophagitis ??? Atherosclerosis of [place] coronary artery 2005: 2 stents to mid LAD and stent to osteal D2 (bifurcation lesion) at [facility] 01/2018- ST II, HR 126, BP 203/72, CP, 1 mm inf and lat ST depressions, normal perfusion and wall notion Norvasc led to diarrhea, Imdur to dizziness/hypotension Cardiac Catheterization: (02/2019) Co dominance Access: 6F RRA Indication: CCS III angina LVEDP 8 Artery Lesion Intervention LM nl LAD p 70 m 70 (ISR) Os D2 70 3.5 x 15 [place] 2.75 x 12 [place] POBA --> 45% residual LCx Mid 85 prox OM1 80 2.75 x 24 Promus 2.5 x 16 Promus RCA Cath 04/2019: without new disease ??? Asthma ??? Hyperlipidemia ??? Rosacea conjunctivitis ??? Primary fibromyalgia syndrome ??? Generalized osteoarthrosis Objective: BP 132/57 (BP Location (NBP): Left arm, Patient Position: Sitting, BP Cuff Sizes: Adult (25-34 cm)) Pulse 82 Ht 153.7 cm (5' 0.5) Wt 68.9 kg (152 lb) LMP (LMP Unknown) BMI 29.20 kg/m?? Gen: pleasant female in NAD Cor: rrr, s1/s2 of nl character and amplitude, no m/r/g. Estimated RAP not elevated. Carotids with normal upstroke without bruit. Pulm: CTAB. Normal diaphragmatic movement without use of accessory muscles Assessment and Plan: Atherosclerosis of [place] coronary artery No angina per history. - Anti-Thrombosis: asa 81. Can d/c plavix - Statin: crestor 5 (max tolerated) - Anti-anginals: GTN PRN, toprol 12.5 Palpitations Seemingly well controlled on current regimen - toprol 12.5 RTC 6 months Patrice Burkett MD documented in this encounter Miscellaneous Notes Assessment & Plan Note - Patrice Burkett MD - 07/30/2020 9:45 PM EDTAssociated Problem(s): Palpitations Seemingly well controlled on current regimen - toprol 12.5 Assessment & Plan Note - Patrice Burkett MD - 07/30/2020 9:44 PM EDTAssociated Problem(s): ASCVD (arteriosclerotic cardiovascular disease) No angina per history. - Anti-Thrombosis: asa 81. Can d/c plavix - Statin: crestor 5 (max tolerated) - Anti-anginals: GTN PRN, toprol 12.5 documented in this encounter Plan of Treatment Upcoming Encounters Date Type Specialty Care Team Description 09/02/2022 Office Visit Cardiology Patrice Burkett MD [facility] [address] [place], [place] [address] ([place]) 11/25/2022 Office Visit Dermatology Kole Mccain MD [address] [facility] DERMATOLOGY [place], [place] [address] ([place]) documented as of this encounter Visit Diagnoses Diagnosis Atherosclerosis of [place] coronary arter y of [place] heart without angina pectoris Palpitations documented in this encounter Care Teams Setter Cold Rolling Machine Relationship Specialty Start Date End Date Quin Rojas MD PCP - General 04/03/[address] [place] [address] documented as of this encounter
--- OUTSIDE RECORDS SUMMARY | 2022-03-08 01:55 | XMS_ITS | Encounter Summary ---
:1945 Author Organization [facility] [place] [address] Care Team Providers Name Role Phone Quin Rojas MD Primary Care Provider Reason for Visit Reason Comments Skin Check Encounter Details Date Type Department Care Team Description 11/17/2020 Office Visit Dermatology at [facility], History of rosacea; Barak JIMENEZ Epidermal cyst; [address] [facility] [address] [facility] Seborrheic keratosis [facility] DERMATOLOGY [place], [place] [id number] [phone] Social History Tobacco Use Types Packs/Day Years [...] on file documented as of this encounter Progress Notes Kole Mccain MD - 11/17/2020 2:30 PM EDT Problem: 1. New skin lesion concern 2. History of rosacea Albina follows up after last being seen in April 2018. She has a new lesion by her right eyebrow.She has lesion on her right cheek. She wants what can be done for these. She also has significant dryness in her left eye. She is a history of ocular rosacea and was on doxycycline previously but is now off of that for unclear reasons. Physical examination reveals a pleasant 75-year-old woman who has a seborrheic keratosis of the right upper eyebrow she has a follicular cyst of the right cheek. Her facial rosacea is quiescent. She has no active papules or pustules or significant erythema. Assessment and plan: Ocular rosacea 1. Resume doxycycline 50 mg 1 p.o. daily dispense #90 with 3 refills Follicular cyst right cheek, also noted at time of April 2018 visit 1. Discussed option of excision for this 2. Patient would rather hold off Seborrheic keratosis right eyebrow 1. Could consider LN2 for the site CC: Quin Rojas MD documented in this encounter Plan of Treatment Upcoming Encounters Date Type Specialty Care Team Description 09/02/2022 Office Visit Cardiology Patrice Burkett MD [facility] [address] [place], [place] [address] ([place]) 11/25/2022 Office Visit Dermatology Kole Mccain MD [address] [facility] DERMATOLOGY [place], [place] [address] ([place]) documented as of this encounter Visit Diagnoses Diagnosis History of rosacea Personal history of diseases of skin and subcutaneous tissue Epidermal cyst Sebaceous cyst Seborrheic keratosis Other seborrheic keratosis documented in this encounter Care Teams Transplant Immunologist Relationship Specialty Start Date End Date Quin Rojas MD PCP - General 04/03/[address] [place] [address] documented as of this encounter
--- OUTSIDE RECORDS SUMMARY | 2022-03-08 01:55 | XMS_ITS | Encounter Summary ---
:1945 [place] [address] Care Team Providers Name Role Phone Quin Rojas MD Primary Care Provider Encounter Details Date Type Department Care Team Description 03/04[facility]2022 [facility] [address] [place] [address] [place] [address] [place] [address] [phone] (Wo rk) Social History Tobacco Use Types [...] this encounter Miscellaneous Notes Telephone Encounter - Chito Brooks RN - 03/04/2022 9:30 AM EDT Will address at tomorrow's appointment. Telephone Encounter - AndrewMeganhome Piedra - 03/04/2022 8:43 AM EDT Patient's sister is not listed on her people to contact. Patients appointment is tomorrow. Her sister is concerned about memory issues. Cognitive dementia, vascular dementia. documented in this encounter Plan of Treatment Upcoming Encounters Date Type Specialty Care Team Description 09/02/2022 Office Visit Cardiology Patrice Burkett MD [facility] [address] [place], [place] [address] ([place]) 11/25/2022 Office Visit Dermatology Kole Mccain MD [address] [facility] DERMATOLOGY [place], [place] [address] ([place]) documented as of this encounter Visit Diagnoses Not on filedocumented in this encounter Care Teams Chartered Financial Analyst Relationship Specialty Start Date End Date Quin Rojas MD PCP - General 04/03/[address] [place] [address] documented as of this encounter
--- OUTSIDE RECORDS SUMMARY | 2022-03-08 01:55 | XMS_ITS | Encounter Summary ---
:1945 [place] [address] Care Team Providers Name Role Phone Quin Rojas MD Primary Care Provider Encounter Details Date Type Department Care Team Description 02/04/2020 Telephone Card[facility] at [facility] PalPatrice MD [address] [place] [address] [place] [address] [place] [address] [phone] ([place]o rk) Social History Tobacco Use Types [...] this encounter Miscellaneous Notes Telephone Encounter - Liv Luis RN - 02/04/2020 11:37 AM EDT Called her back and she only takes 1/2 a tablet a day of her metoprolol. Changed on med list Telephone Encounter - Isa Morales - 02/04/2020 10:34 AM EDT Albina called because she received the new medication list. She said in going over the list there is one medication that is wrong. Please call her at [phone]. documented in this encounter Plan of Treatment Upcoming Encounters Date Type Specialty Care Team Description 09/02/2022 Office Visit Cardiology Patrice Burkett MD [facility] [address] [place], [place] [address] ([place]) 11/25/2022 Office Visit Dermatology Kole Mccain MD [address] [facility] DERMATOLOGY [place], [place] [address] ([place]o [place]k) documented as of this encounter Visit Diagnoses Not on filedocumented in this encounter Care Teams Pulp Mill Supervisor Relationship Specialty Start Date End Date Quin Rojas MD PCP - General 04/03/[address] [place] [address] documented as of this encounter
--- OUTSIDE RECORDS SUMMARY | 2022-03-08 01:55 | XMS_ITS | Encounter Summary ---
:1945 Author Organization [facility] [place] [address] Care Team Providers Name Role Phone Quin Rojas MD Primary Care Provider Encounter Details Date Type Department Care Team Description 11/05/2021 Telephone Cardiology at [facility] Niki Kimball RN [address] [place] [address] Social History Tobacco Use Types Packs/Day Years [...] this encounter Miscellaneous Notes Telephone Encounter - Isa Morales - 11/05/2021 1:29 PM EDT Called patient and she is aware she has an appointment on 03-05 @ 3:00. She did ask if we had gotten records on stress tests done at [facility] years ago. They are scanned. She would like to discuss them. Please call her @ [phone]. Telephone Encounter - Niki Kimball, RN - 11/05/2021 7:30 AM EDT Albina left a asking about an appointment to be scheduled with Dr. Burkett There is an appointment scheduled for March 03. documented in this encounter Plan of Treatment Upcoming Encounters Date Type Specialty Care Team Description 09/02/2022 Office Visit Cardiology Patrice Burkett MD [facility] [address] [place], [place] [address] ([place]) 11/25/2022 Office Visit Dermatology Kole Mccain MD [address] [facility] DERMATOLOGY [place], [place] [address] ([place]o [place]k) documented as of this encounter Visit Diagnoses Not on filedocumented in this encounter Care Teams Sourcing Manager Relationship Specialty Start Date End Date Quin Rojas MD PCP - General 04/03/[address] [place] [address] documented as of this encounter
--- OUTSIDE RECORDS SUMMARY | 2022-03-08 01:55 | XMS_ITS | Encounter Summary ---
:1945 [place] [address] Care Team Providers Name Role Phone Quin Rojas MD Primary Care Provider Encounter Details Date Type Department Care Team Description 01/08/2022 [facility] [address] [place] [address] [place] [address] [place] [address] [phone] (Wo rk) Social History Tobacco Use Types [...] Telephone Encounter - Chito Brooks RN - 01/08/2022 2:03 PM EDT Called and spoke to Albina. She reports that on Friday she was sitting on couch for long period of time visiting with her sisters. She reports that she developed bilateral thigh cramps that she says were incredibly painful. She said she had a less intense issue with that yesterday, as well as some di zziness. She reports both seem better now. She denies any chest pain or SOB, or any other symptoms. She denies any recent changes to her diet or medications. Telephone Encounter - Isa Morales - 01/08/2022 1:39 PM EDT Patient called because on Friday she had severe cramping in her thighs. Yesterday she still had some cramping in her thighs. But she was also feeling dizzy. She said her BP's are okay. Please call her at [phone]. documented in this encounter Plan of Treatment Upcoming Encounters Date Type Specialty Care Team Description 09/02/2022 Office Visit Cardiology Patrice Burkett MD [facility] [address] [place], [place] [address] ([place]) 11/25/2022 Office Visit Dermatology Kole Mccain MD [address] [facility] DERMATOLOGY [place], [place] [address] ([place]o rk) documented as of this encounter Visit Diagnoses Not on filedocumented in this encounter Care Teams Director Presales Relationship Specialty Start Date End Date Quin Rojas MD PCP - General 04/03/[address] [place], [place] [address] documented as of this encounter
--- OUTSIDE RECORDS SUMMARY | 2022-03-08 01:55 | XMS_ITS | Encounter Summary ---
:1945 [place] [address] Care Team Providers Name Role Phone Quin Rojas MD Primary Care Provider Encounter Details Date Type Department Care Team Description 03/05/2022 Telephone Cardiology at [facility] Patrice Burkett MD [address] [place] [address] [place] [address] [place] [address] [phone] (Wo rk) Social History Tobacco Use Types [...] this encounter Miscellaneous Notes Telephone Encounter - Gypsy Marin - 03/05/2022 3:28 PM EDT PT wanted to ask [facility] to fill a couple of her medications but she couldn't remember what ones theywere she wanted me to figure it out I told her that wasn't something that I could do and she said she would call us later. She would also like her office encounter sent over to her primary. She was a little worried about me scheduling her for 09/02 because she likes to stick to as close to 6 months aspossible I tried telling her that was as close I was going to get her and that is almost exactly 6 months. She didn't seem convinced but took it anyway documented in this encounter Plan of Treatment Upcoming Encounters Date Type Specialty Care Team Description 09/02/2022 Office Visit Cardiology Patrice Burkett MD [facility] er [address] [place], [place] [address] ([place]o [place]) 11/25/2022 Office Visit Dermatology Kole Mccain MD [address] [facility] DERMATOLOGY [place], [place] [address] (Wo rk) documented as of this encounter Visit Diagnoses Not on filedocumented in this encounter Care Teams Reading Aide Relationship Specialty Start Date End Date Quin Rojas MD PCP - General 04/03/10 [facility] [address] [place] [address] documented as of this encounter
--- OUTSIDE RECORDS SUMMARY | 2022-03-08 01:55 | XMS_ITS | Clinical Summary ---
:1945 Author Organization [facility] [place] [address] Care Team Providers Name Role Phone Quin Rojas MD Primary Care Provider Allergies Active Allergy Reactions Severity Noted Date Comments Acetaminophen Medium 12/05/2017 Iodinated Contrast Media Medium 06/01/2020 Oth er reaction(s): chest pain Iodine And Iodide Containing Low Reported chest pressure Products while eating lo bster. Oxycodone Medium 02/13/2019 unspecified Dipyridamole Medium 09/11/2012 unspecified Phenylephrine-Guaifenesin Rash Medium 01/31/2015 Sw elling Pneumococcal 23-Valent High 06/01/2020 Other reaction(s): Skin Polysaccharide Vaccine Rash Povidone-Iodine High Shellfish Derived High crushing c hest pain Simvastatin Medium myalgia Thallium-201 Medium 09/11/2012 unspecified Ticagrelor Medium 06/01/2020 Other reaction( s): palpitations Medications Medication Sig Dispensed Refills Start Date End Date Status levothyroxine 75mcg, PO, Once 0 11/06/2009 Active (SYNTHROID) 75 mcg daily tablet ADVAIR DISKUS 250-50 Inhale 1 puff 0 09/19/2014 Active mcg/dose Disk with into the lungs 2 Device times daily. montelukast (SINGULAIR) Take 10 mg by 1 01/12/2015 Active 10 mg Tablet mouth nightly. aspirin 81 mg Tablet, Take 81 mg by 0 Active Delayed Release (E.C.) mouth daily. cholecalciferol, Vitamin Take 2,000 Units 0 Active D3, 50 mcg (2,000 unit) by mouth daily. Capsule fluticasone (FLONASE) 50 2 sprays by Each 0 Active mcg/actuation [place], Nare route Suspension nightly. cycloSPORINE (RESTASIS) 1 drop 2 times 0 Active 0.05 % [place] daily. VENTOLIN HFA 90 Inhale 2 puffs 1 11/25/2018 Active mcg/actuation HFA into the lungs 2 Aerosol Inhaler times daily as needed. rosuvastatin (Crestor) 5 Take 1 tablet by 90 tablet 3 08/24/19 20 Active mg TabletIndications: mouth nightly. Hyperlipidemia, unspecified hyperlipidemia type metoprolol succinate XL Take 12.5 mg by 0 11/04/2019 Active (Toprol-XL) 25 mg Tablet mouth daily. Sustained Release 24 hr cyanocobalamin, Vitamin Take 1,000 mcg 0 12/25/2019 Active B-12, (Vitamin B-12) by mouth daily. 1,000 mcg Tablet ubiquinone (coenzyme Take 10 mg by 0 Active Q10) 10 mg Capsule mouth nightly. meclizine (Antivert) 25 Take 25 mg by 0 09/26/2020 Active mg Tablet mouth 3 times daily as needed for Dizziness. multivitamin Capsule Take 1 tablet by 0 09/19/[address] 1 TABLET 25 tablet 11 07/16/2021 Active (Nitrostat) 0.4 mg UNDER THE TONGUE Tablet, EVERY 5 MINUTES SublingualIndications: NEEDED FOR Chest pain, unspecified CHEST PAIN(MAX 3 type DOSES PER DAY) amoxicillin-clavulanate Take 1 tablet by 0 2 Active (Augmentin) 875-125 mg mouth 2 times Tablet daily. donepeziL (Aricept) 5 mg Take 5 mg by 0 03/04/2022 Active Tablet mouth daily. Start with one half tablet daily Active Problems Problem Noted Date Uterine prolapse 07/24/2020 Osteopenia 07/24/2020 Lactose intolerance 07/24/2020 Palpitations 03/17/2019 Overview: Formatting of this note is dif ferent from the original. 2013: negative Holter 03/2019: There were many patient diary events: - Symptoms included: arms weak, quick involuntary breaths, palpitations, short of breath/heavy chest feeling, lightheaded/short of breath, palpitations, short of breath - The majority of these events were joselyn elated with normal sinus rhythm without significant arrhythmia nor ectopy. ??Chest heaviness was described with very ephemeral atrial bigeminy. Conclusion(s): ?? Predominant rhythm is sinus, with normal range and circadian variation No significant supraventricular or ventr icular ectopy. ??Of note, the vast majority of SVE was asymptomatic There is no clear electrophysiologic nid us to most of the patient's reported symptoms Last Assessment & Plan: No issues on current regimen - continue toprol Hypothyroidism 12/05/2017 Reflux esophagitis 03/07/2014 ASCVD (arteriosclerotic cardiovascular disease) 2012 Overview: Formatting of this note is dif ferent from the original. 2005: 2 stents to mid LAD and stent to [place] steal D2 (bifurcation lesion[place] [facility] [place] [facility] [place]- ST II, HR 126, BP 203/72, C P, 1 mm inf and lat ST depressions, normal perfusion and wall notion Norvasc led to diarrhea, Imdur to dizzin ess/hypotension Cardiac Catheterization: (02/2019) Co dominance Access: 6F RRA Indication: CCS III angina LVEDP 8 Artery Lesion Intervention LM nl LAD p 70 m 70 (ISR) Os D2 70 3.5 x 15 [place] 2.75 x 12 [place] POBA --> 45% residual LCx Mid 85 prox OM1 80 2.75 x 24 Promus 2.5 x 16 Promus RCA Cath 04/2019: without new disease Last Assessment & Plan: No angina per history - Anti-Thrombosis: asa 81. - Statin: crestor 5 (max tolerated) - Anti-anginals: GTN PRN, toprol 12.5. If when starting Aricept it is noted that the HR decreases to < 60, can stop the toprol Asthma 09/02/2012 Hyperlipidemia 08/24/2012 Rosacea conjunctivitis 10/27/2008 Primary fibromyalgia syndrome 04/10/2005 Generalized osteoarthrosis 04/10/2003 Resolved Problems Problem Noted Date Resolved Date Sinusitis 07/24/2020 07/30/2020 Sensorineural hearing loss of both ears 07/24/2020 07/30/2020 Decreased hearing 07/24/2020 07/30/2020 Bradycardia 07/24/2020 07/30/2020 Orthostatic hypotension 08/16/2019 01/30/2020 Overview: Diagnosed 07/2019 [facility]. Started on ana f /midodrine Last Assessment & Plan: Because of the BP, have advised decreasi ng midodrine from BID to QD, and to take the medication in the morning. She will avoid laying flat for ~ 4 hours after using the medication. Will be more conservative with BP goal (target 150s) - continue florinef 0.1 mg qam - decrease midodrine to 2.5 qam (from B ID) Unstable angina 04/23/2019 08/16/2019 Angina at rest 02/13/2019 03/17/2019 Pessary maintenance 04/25/2017 07/30/2020 Hoarseness 11/14/2016 07/30/2020 Eyelid lesion 05/23/2015 07/30/2020 Posterior tibial tendon dysfunction 01/31/201507/11 Pes planus of right foot 11/30/2014 07/30/2020 Hallux valgus of right foot 11/30/2014 07/30/2020 Lumbago 01/25/2014 07/30/2020 Essential hypertension 03/30/2013 07/30/2020 Last Assessment & Plan: Formatting of th is note might be different from the original. If patient has elevated BP at home, this may be the cause of the chest pain. 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 01/30/2020 Vitamin D deficiency 11/09/2007 07/30/2020 Encounters Date Type Specialty Care Team Description 03/05/2022 Office Visit Cardiology Patrice Burkett MD ASCVD ( arteriosclerotic cardiovascular disease); Palpitations 03/05/2022 Telephone Cardiology Patrice Burkett MD 03/04/2022 Telephone Cardiology Patrice Burkett MD 02/04/2022 Office Visit Dermatology Kole Mccain MD Histor y of rosacea; Epidermal cyst; Seborrheic breanna tosis 01/08/2022 Telephone Cardiology Patrice Burkett MD from Last 3 Months Immunizations Name Administration Dates Next Due Influenza Vaccine PF, Quadrivalent 02/01/2020, 02/17/2019, 1 05/20/2017 Influenza, Trivalent, Adjuvanted 02/17/2019 Pneumococcal Polyvalent 23 08/16/2014, 04/12/2010, 1 Td Vaccine, Absorbed, PF, Adult 08/08/2011, 10/10/2005 Td, adult 10/29/2005 Tdap Vaccine 08/08/2011 Family History Medical History Relation Comments Heart Disease Brother 1 [place] at 48 Hypertension Brother 1 Heart Disease Father Hyperlipidemia Father Hypertension Father Myocardial Infarction Father [place] at age 40 and a t age 60 Heart Disease Maternal Grandfather Hyperlipidemia Maternal Grandfather Hypertension Maternal Grandfather Asthma Mother Hypertension Mother Heart Disease Paternal Grandfather Hyperlipidemia Paternal Grandfather Hypertension Paternal Grandfather Heart Disease Paternal Grandmother Heart Disease Sister 1 Cancer Neg Hx Relation Status Comments Brother 1 Brother 2 Alive Father (Age 60) Maternal Grandfather Maternal Grandmother Mother Paternal Grandfather Paternal Grandmother Sister 1 Alive Sister 2 Alive Sister 3 Alive Sister 4 Alive Social History Tobacco Use Types Packs/Day Years [...] Assigned at Date Recorded Not on file Last Filed Vital Signs Vital Sign Reading Time Taken Comments Blood Pressure 132/58 03/05/2022 2:56 PM EDT Pulse 83 03/05/2022 2:56 PM EDT Temperature 37 ??C (98.6 ??F) 04/25/2019 11:39 AM EST Respiratory Rate 18 03/05/2022 2:56 PM EDT Oxygen Saturation 18% 04/25/2019 11:39 AM EST Inhaled Oxygen Concentration - - Weight 63.5 kg (140 lb) 03/05/2022 2:56 PM EDT Height 152.4 cm (5') 03/05/2022 2:56 PM EDT Body Mass Index 27.34 03/05/2022 2:56 PM EDT Plan of Treatment Upcoming Encounters Date Type Specialty Care Team Description 09/02/2022 Office Visit Cardiology Patrice Burkett MD [facility] [address] [place] [address] (Wo rk) 11/25/2022 Office Visit Dermatology Kole Mccain MD [address] [facility] [place], [place] [address] (Wo rk) Health Maintenance Due Date Last Done Comments Covid-19 Vaccine (#1) 1945 Hepatitis C Screening 1961 Zoster vaccine (1 of 2) 1993 Bone Density Scan 2008 Pneumoccocal Vaccine: 65+ (2 - 08/17/2015 08/16/2014, 04/12, PCV) 07/10/2000 Tetanus vaccine 08/07/2021 08/08/2011, 08/08/2011, 10/29/2005, Additional history exists Influenza (Flu) vaccine (1 of 1 - 01/10/2022 02/01/2020, , Influenza standard series) 02/17/2019, Additiona l history exists Tdap adult Completed 08/08/2011 Procedures Procedure Name Priority Date/Time Associated Diagnosis Comme nts EKG 12-LEAD Routine 03/05/2022 3:30 PM Results f or this EDT procedure are i n the results section . from Last 3 Months Results EKG 12 Lead (03/05/2022 3:30 PM EDT) Component Value Ref Range Test Analysis Performed Pathologis t Method Time At Signature Ventricular rate 90 BPM MUSE SYSTEM Atrial Rate 90 BPM MUSE SYSTEM P-R Interval 162 ms MUSE SYSTEM QRS Duration 98 ms MUSE SYSTEM Q-T Interval 346 ms MUSE SYSTEM QTC Calculated 423 ms MUSE SYSTEM (Bezet) Calculated P [place] 80 degrees MUSE SYSTEM Calculated R [place] 57 degrees MUSE SYSTEM Calculated T [place] 79 degrees MUSE SYSTEM INTERPRETATION Sinus rhythm with Fusion complexes MUSE SYSTEM Otherwise normal ECG When compared with ECG of 20-OCT-2019 13:30, Fusion complexes are now Present Nonspecific T wave abnormality now evident in Lateral leads Confirmed by MD Burkett Daniel ([id number]) on 03/06/2022 10:43: 23 AM Specimen Anatomical Collection Method Collection Time Receive d Time (Source) Location / / Volume Laterality 03/05/2022 3:30 PM 2 EDT 10:43 AM EDT Unknown ECG ORDERABLES Performing Organization Address City/State/ZIP Code Phon e Number MUSE SYSTEM from Last 3 Months Insurance Payer Benefit Plan / Subscriber ID Effective Phone Address T ype Group Dates MEDICARE MEDICARE PART A [id number] 2017-Pres [phone] [place] [phone] [facility] [id number] 2008-Prese [phone] [address] [facility] [address] [place] [phone] Advance Directives Documents on File Type Date Recorded 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
--- OUTSIDE RECORDS SUMMARY | 2022-03-08 01:55 | XMS_ITS | Encounter Summary ---
:1945 Author Organization [facility] [place] [address] Care Team Providers Name Role Phone Quin Rojas MD Primary Care Provider Reason for Visit Reason Comments Coronary Artery Disease Palpitations Encounter Details Date Type Department Care Team Description 08/29/2021 Office Visit Cardiology at Patrice Burkett, ASCVD (ar teriosclerotic cardiovascular disease); Barak JIMENEZ Angina of effort [address] [place], [place], [place] [phone] Social History Tobacco [...] Sign Reading Time Taken Comments Blood Pressure 133/61 08/29/2021 3:43 PM EDT Pulse 74 08/29/2021 3:43 PM EDT Temperature - - Respiratory Rate - - Oxygen Saturation - - Inhaled Oxygen Concentration - - Weight 65.8 kg (145 lb) 08/29/2021 3:43 PM EDT Height 152.4 cm (5') 08/29/2021 3:43 PM EDT Body Mass Index 28.32 08/29/2021 3:43 PM EDT documented in this encounter Progress Notes Patrice Burkett MD - 08/29/2021 3:20 PM EDT Images from the original note were not included. Subjective: Patient ID: Albina Thompson is a 76 y.o. female who presents on follow-up for: Chief Complaint Patient presents with ??? Coronary Artery Disease ??? Palpitations HPI Last seen by me 02/2021, at which time no changes were made. 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 She walks wto the mailbox without angina nor untoward dyspnea. However, when shes in the [place] carrying heavy bins (to helpthe surveying) she notices CP that is somewhat reminiscent of her prior angina. It dissipates readily, and has not required a GTN for it because by the time she is gong to take it it has dissipated. bp well controlled No significant palpitations nor dizziness Current Outpatient Medications: ??? nitroGLYcerin (Nitrostat) 0.4 mg Tablet, Sublingual, [...] , Rfl: ??? fluticasone (FLONASE) 50 mcg/actuation [place], Suspension, 2 sprays by Each Nare route [...] stent to osteal D2 (bifurcation lesion) at [facility] [place] [facility] 01/2018- ST II, HR 126, BP 203/72, CP, 1 mm inf and lat ST depressions, normal perfusion and wall notion Norvasc led to diarrhea, Imdur to dizziness/hypotension Cardiac Catheterization: (02/2019) Co dominance Access: 6F RRA Indication: CCS III angina LVEDP 8 Artery Lesion Intervention LM nl LAD p 70 m 70 (ISR) Os D2 70 3.5 x 15 V[place] 2.75 x 12 Vici POBA --> 45% residual LCx Mid 85 prox OM1 80 2.75 x 24 Promus 2.5 x 16 Promus RCA Cath 04/2019: without new disease ??? Asthma ??? Hyperlipidemia ??? Rosacea conjunctivitis ??? Primary fibromyalgia syndrome ??? Generalized osteoarthrosis Objective: BP 133/61 (BP Location (NBP): Right arm, Patient Position: Sitting, BP Cuff Sizes: Adult (25-34 cm)) Pulse 74 Ht 152.4 cm (5') Wt 65.8 kg (145 lb) LMP (LMP Unknown) BMI 28.32 kg/m?? Gen: pleasant female in NAD Cor: rrr, s1/s2 of nl character and amplitude, no m/r/g. Estimated RAP not elevated. Carotids with normal upstroke without bruit. Pulm: CTAB. Normal diaphragmatic movement without use of accessory muscles Assessment and Plan: ASCVD (arteriosclerotic cardiovascular disease) HIstory is suspicious for ccs I-ii angina. Because she is typically with side effects from medications, would opt to confirm/refute obstructive disease with stress testing rather than empirically augment anti-anginal regimen. - Anti-Thrombosis: asa 81. - Statin: crestor 5 (max tolerated) - Anti-anginals: GTN PRN, toprol 12.5 - Pharmacologic nuclear stress test RTC 6 months; sooner if NST aberrant Patrice Burkett MD documented in this encounter Miscellaneous Notes Assessment & Plan Note - Patrice Burkett MD - 08/29/2021 3:58 PM EDTAssociated Problem(s): ASCVD (arteriosclerotic cardiovascular disease) HIstory is suspicious for ccs I-ii angina. Because she is typically with side effects from medications, would opt to confirm/refute obstructive disease with stress testing rather than empirically augment anti-anginal regimen. - Anti-Thrombosis: asa 81. - Statin: crestor 5 (max tolerated) - Anti-anginals: GTN PRN, toprol 12.5 - Pharmacologic nuclear stress test documented in this encounter Plan of Treatment Upcoming Encounters Date Type Specialty Care Team Description 09/02/2022 Office Visit Cardiology Patrice Burkett MD [facility] [address] [place] [address] (Wo rk) 11/25/2022 Office Visit Dermatology Kole Mccain MD [address] [facility] [place], [place] [address] (Wo rk) Scheduled Orders Name Type Priority Associated Diagnoses Order S chedule Nuclear Pharmacologic Cardiac Services Routine ASCVD Ex pected: Stress Cardiology (arteriosclerotic 08/29, cardiovascular Expires: disease) 02/28/2022 Angina of effort documented as of this encounter Visit Diagnoses Diagnosis ASCVD (arteriosclerotic cardiovascular d isease) Unspecified cardiovascular disease Angina of effort Other and unspecified angina pectoris documented in this encounter Care Teams Carpenter Streetcar Relationship Specialty Start Date End Date Quin Rojas MD PCP - General 04/03/[address] [place] [address] documented as of this encounter
--- OUTSIDE RECORDS SUMMARY | 2022-03-08 01:55 | XMS_ITS | Encounter Summary ---
:1945 Author Organization [facility] [place] [address] Care Team Providers Name Role Phone Quin Rojas MD Primary Care Provider Encounter Details Date Type Department Care Team Description 02/29/2020 Ancillary Procedure Radiology Library Quin Rojas , Left breast mass at [facility] [address] [id number] [phone] (Wo rk) Social History Tobacco Use Types [...] 09/02/2022 Office Visit Cardiology Patrice Burkett MD [facility] [address] [place], [place] [address] (Wo rk) 11/25/2022 Office Visit Dermatology Kole Mccain MD [address] DERMATOLOGY [place], [place] [address] (Wo rk) documented as of this encounter Procedures Procedure Name Priority Date/Time Associated Diagnosis Comme nts REQUEST FOR 2ND Routine 02/29/2020 10:52 AM Left breast mass R esults for this READ MAMMO EDT procedure are i n the results section. documented in this encounter Results Request for 2nd read Mammo (02/29/2020 10:52 AM EDT) Anatomical Region Laterality Modality SO Specimen (Source) Anatomical Location Collection Method / Collectio n Time Received Time / Laterality Volume Impressions 02/29/2020 11:28 AM EDT No mammographic or ultrasound evidence of malignancy. RECOMMENDATION: Routine annual screening. BI-RADS Category 2: Benign Findings * ??Regular screening mammograms startin g between age 40 and 50 reduces the risk of from breast cancer. * ??All screening tests have both risks and benefits. These risks and benefits should be assessed for each individual p atient through discussion with their provider to determine their preferred [facility] cancer screening schedule. * ??Women should report any breast rizvi es to a health care provider right away. * ??Some women, because of their family history, a genetic tendency, or other factors, should be screened with annual breast MRI as well as with mammograms. (The number of women who fall into this category is very small). Patients and health care providers should discuss [facility] patients history to decide if earlier screening and/or breast MRI are appropri ate. * ??Screening should continue as long as a woman is in good health and is expected to live 10 years or longer. * ??Screening mammography may not detect 10-15% of breast cancers. Please note: The interpretation of the [facility] Breast Imaging Radiologist subspecialist may differ fro m the original radiologist's interpretation. This is usually not due to a deficiency of the original interpreting radiologist, rather due to the greater skill level afforded by sub-specialization in the field and/or r easonable variations in interpretations. If you have a concern regarding the D- interpretation you may contact the [facility] at . Thank you for letting us participate in the care of this patient. For questions regarding this report, please contact e number below. ? Electronically signed by: Tonja ayala MD, [facility] ([phone]), at 02/29/2020 11:28 AM Narrative 02/29/2020 11:28 AM EDT INTERPRETATION OF OUTSIDE BREAST IMAGING I have been asked to consult on this pat ient by Dr. Quin Rojas because he/she believes a review of this study m ay change or alter the care of this patient. STUDIES FROM: [facility] DATES: 02/15/2020, 02/18/2020 CLINICAL HISTORY: LEFT BREAST MASS, CAT 4; ? BX, ? MORE IMAGING; What Modality is the exam? Mammography; Body Part (ple ase add comments as necessary): LEFT BREAST; Sending Institution [facility]; Date of exam 20200218; I believe a reinterpretation o f this exam may alter care of Patient. Yes. ?? COMPARISONS: 02/26/2018, 02/24/2017, 10/03/2015, 04/21, 04/19/2013 FINDINGS: 2-D direct digital capture, 3- D tomosynthesis were used. CC and MLO views were obtained of each breast. Spot compression CC and spot compression MLO views were performed. The breasts are heterogeneously dense, w hich may obscure small masses. There are no suspicious masses, suspicious microca lcifications, or areas of architectural distortion. Specifically, there are stab le intramammary lymph nodes laterally in the left breast and there is stable mild asymmetry in the upper left breast on the MLO view. There is no developing asy mmetry. Left breast ultrasound: Please note: Jazmyn ast ultrasound is gas engine operator compressors dependent. Complete assessment of the breast tissue is not possible through static images or cine loops. Because breast ultrasound is a dynamic process the interpretive value of outside images is limited. Ther e is a sonographically benign intramammary lymph nodes depicted at the left breast 3:00 radian 2 cm from the nipple. No suspicious solid lesion is id entified. Procedure Note Tonja Homl MD - 02/29/2020Form atting of this note might be different from the original. INTERPRETATION OF OUTSIDE BREAST IMAGING I have been asked to consult on this pat ient by Dr. Quin Rojas because he/she believes a review of this study m ay change or alter the care of this patient. STUDIES FROM: [facility] DATES: 02/15/2020, 02/18/2020 CLINICAL HISTORY: LEFT BREAST MASS, CAT 4; ? BX, ? MORE IMAGING; What Modality is the exam? Mammography; Body Part (ple ase add comments as necessary): LEFT BREAST; Sending Institution [facility]; Date of exam 20200218; I believe a reinterpretation o f this exam may alter care of Patient. Yes. COMPARISONS: 02/26/2018, 02/24/2017, 10/03/2015, 04/21, 04/19/2013 FINDINGS: 2-D direct digital capture, 3- D tomosynthesis were used. CC and MLO views were obtained of each breast. Spot compression CC and spot compression MLO views were performed. The breasts are heterogeneously dense, w hich may obscure small masses. There are no suspicious masses, suspicious microca lcifications, or areas of architectural distortion. Specifically, there are stab le intramammary lymph nodes laterally in the left breast and there is stable mild asymmetry in the upper left breast on the MLO view. There is no developing asy mmetry. Left breast ultrasound: Please note: Jazmyn ast ultrasound is gas engine operator compressors dependent. Complete assessment of the breast tissue is not possible through static images or cine loops. Because breast ultrasound is a dynamic process the interpretive value of outside images is limited. Ther e is a sonographically benign intramammary lymph nodes depicted at the left breast 3:00 radian 2 cm from the nipple. No suspicious solid lesion is id entified. IMPRESSION No mammographic or ultrasound evidence o f malignancy. RECOMMENDATION: Routine annual screening. BI-RADS Category 2: Benign Findings * Regular screening mammograms starting between age 40 and 50 reduces the risk of from breast cancer. * All screening tests have both risks an d benefits. These risks and benefits should be assessed for each individual p atient through discussion with their provider to determine their preferred [facility] cancer screening schedule. * Women should report any breast changes to a health care provider right away. * Some women, because of their family hi story, a genetic tendency, or other factors, should be screened with annual breast MRI as well as with mammograms. (The number of women who fall into this category is very small). Patients and health care providers should discuss [facility] patients history to decide if earlier screening and/or breast MRI are appropri ate. * Screening should continue as long as a woman is in good health and is expected to live 10 years or longer. * Screening mammography may not detect 1 0-15% of breast cancers. Please note: The interpretation of the [facility] Breast Imaging Radiologist subspecialist may differ fro m the original radiologist's interpretation. This is usually not due to a deficiency of the original interpreting radiologist, rather due to the greater skill level afforded by sub-specialization in the field and/or r easonable variations in interpretations. If you have a concern regarding the D interpretation you may contact the [facility] at . Thank you for letting us participate in the care of this patient. For questions regarding this report, please contact th e number below. Electronically signed by: Tonja ayala MD, [facility] ([phone]), at 02/29/2020 11:28 AM Quin Rojas MD IMG OUTSIDE INTERPRETATION O RDERABLES documented in this encounter Visit Diagnoses Diagnosis Left breast mass Lump or mass in breast documented in this encounter Care Teams Signal Technician Relationship Specialty Start Date End Date Quin Rojas MD PCP - General 04/03/10 [address] [place] [address] documented as of this encounter
--- OUTSIDE RECORDS SUMMARY | 2022-03-08 01:55 | XMS_ITS | Encounter Summary ---
:1945 [place] [address] Care Team Providers Name Role Phone Quin Rojas MD Primary Care Provider Encounter Details Date Type Department Care Team Description 01/27/2020 Telephone Cardiology at [facility] PalPatrice MD [address] [place] [address] [place] [address] [place] [address] [phone] (Wo rk) Social History Tobacco Use Types [...] Notes Telephone Encounter - Isa Morales - 01/27/2020 1:28 PM EDT Albina called because in looking over her AVS her medication list does not match with what she is taking. Please call her back at [phone]. documented in this encounter Plan of Treatment Upcoming Encounters Date Type Specialty Care Team Description 09/02/2022 Office Visit Cardiology Patrice Burkett MD [facility] [place], [place] [address] (Wo rk) 11/25/2022 Office Visit Dermatology Kole Mccain MD [address] [facility] DERMATOLOGY [place], [place] [address] (Wo rk) documented as of this encounter Visit Diagnoses Not on filedocumented in this encounter Care Teams Storm Door Maker Relationship Specialty Start Date End Date Quin Rojas MD PCP - General 04/03/[address] [place] [address] documented as of this encounter
--- OUTSIDE RECORDS SUMMARY | 2022-03-08 01:55 | XMS_ITS | Encounter Summary ---
:1945 Author Organization [facility] [place] [address] Care Team Providers Name Role Phone Quin Rojas MD Primary Care Provider Reason for Visit Reason Comments Medication Refill Encounter Details Date Type Department Care Team Description 07/16/2021 Refill Cardiology at [facility] Patrice Burkett MD Medication Refill [address] [place] [address] [place] [address] [phone] (Wo rk) Social History Tobacco Use Types [...] 09/02/2022 Office Visit Cardiology Patrice Burkett MD [facility] [address] [place], [place] [address] (Wo rk) 11/25/2022 Office Visit Dermatology Kole Mccain MD [address] DERMATOLOGY [place], [place] [address] (Wo rk) documented as of this encounter Visit Diagnoses Diagnosis Chest pain, unspecified type documented in this encounter Care Teams Human Resources Admin Relationship Specialty Start Date End Date Qiun Rojas MD PCP - General 04/03/[address] [place], [place] [id number] documented as of this encounter
--- OUTSIDE RECORDS SUMMARY | 2022-03-08 01:55 | XMS_ITS | Encounter Summary ---
:1945 Author Organization [facility] [place] [address] Care Team Providers Name Role Phone Quin Rojas MD Primary Care Provider Encounter Details Date Type Department Care Team Description 09/25/2020 Telehealth notes only TeleHealth Telehealth, [facility] [place] [address] Social History Tobacco Use Types Packs/Day [...] documented as of this encounter Miscellaneous Notes Consult Note - Orion Patino MD - 09/25/2020 10:00 PM EDT TELENEUROLOGY CONSULT NOTE Fumuoewss-DjmlxnsjpSqnz-Igkrzumkn Date 09/25/20 Patient: Albina Thompson MRN; [id number] : 1945 Gender:female Requesting Location: Dizziness Admitted/Observation: Yes Arrival Date: 09/25/2020 Arrival Time:-- Requesting Physician: Dr. Calloway Diagnosis/Reason for Consult: Vertigo/Gait and Balance Issues Consent obtained from: Patient Time consult began: 10.12 pm HISTORY OF PRESENTING COMPLAINTS: She says she had a bad dizzy spell when she woke up today morning. Its better now when she is not moving. As soon As she moves she has dizziness. She is hard of hearing. No tinnitus. Has dizzy spells in past, but nothing this severe. No nausea or vomiting. Lives with her . She has HTN and h/o 8 stents for CAD. She has a dye allergy. She had CT today which was unremarkable. PMHx: Past Medical History: Diagnosis Date ??? Asthma 12/05/2017 ??? Coronary atherosclerosis of [place] coronary artery 12/05/2017 ??? Essential hypertension 12/05/2017 ??? Hyperlipidemia 12/05/2017 ??? Hypothyroidism 12/05/2017 Past Surgical History: Procedure Laterality Date ??? CARDIAC CATHERIZATION ??? CORONARY ANGIOPLASTY ??? CORONARY ANGIOPLASTY WITH STENT PLACEMENT 8 total Patient Conditions: Hearing loss. Family History: Family History Problem Relation Age of Onset ??? Hypertension Mother ??? Asthma Mother ??? Hypertension Father ??? Heart Disease Father ??? Hyperlipidemia Father ??? Myocardial Infarction Father CA at age 40 and at age 60 ??? Heart Disease Sister ??? Heart Disease Brother CA at 48 ??? Hypertension Brother ??? Hypertension Maternal Grandfather ??? Heart Disease Maternal Grandfather ??? Hyperlipidemia Maternal Grandfather ??? Heart Disease Paternal Grandmother ??? Hypertension Paternal Grandfather ??? Heart Disease Paternal Grandfather ??? Hyperlipidemia Paternal Grandfather ??? Cancer Neg Hx Social History: reports that she has never smoked. She has never used smokeless tobacco. She reports previous alcohol use. She reports that she does not use drugs. No flowsheet data found. Are you a current smoker or have you ever smoked: No Do you consume alcohol: No Medications: Current Outpatient Medications on File Prior to Visit Medication Sig Dispense Refill ??? famotidine (Pepcid) 40 mg Tablet Take 40 mg by mouth daily. ??? nitroGLYcerin (Nitrostat) 0.4 mg Tablet, Sublingual Place 1 tablet under the tongue every 5 minutes as needed for Chest pain (maximum 3 per day). Indications: dispense bottle(s) of 25 tablet quantities (Patient not taking: Reported on 07/25/2020) 25 tablet 11 ??? cyanocobalamin, Vitamin B-12, (Vitamin B-12) 1,000 mcg Tablet Take 1,000 mcg by mouth daily. ??? ubiquinone (coenzyme Q10) 10 mg Capsule Take 10 mg by mouth nightly. ??? metoprolol succinate XL (Toprol-XL) 25 mg Tablet Sustained Release 24 hr Take 12.5 mg by mouth daily. ??? rosuvastatin (Crestor) 5 mg Tablet Take 1 tablet by mouth nightly. 90 tablet 3 ??? VENTOLIN HFA 90 mcg/actuation HFA Aerosol Inhaler Inhale 2 puffs into the lungs 2 times daily asneeded. 1 ??? vit A/C/E ac/ZnOx/cupric oxide (EYE VITAMIN AND MINERALS ORAL) Take 1 capsule by mouth daily. ??? fluticasone (FLONASE) 50 mcg/actuation [employer], Suspension 2 sprays by Each Nare route nightly. ??? cycloSPORINE (RESTASIS) 0.05 % Dropperette 1 drop 2 times daily. ??? aspirin 81 mg Tablet, Delayed Release (E.C.) Take 81 mg by mouth daily. ??? cholecalciferol, Vitamin D3, (CHOLECALCIFEROL, VITAMIN D3,) 2,000 unit Capsule Take 2,000 Units by mouth 2 times daily. ??? ADVAIR DISKUS 250-50 mcg/dose Disk with Device Inhale 1 puff into the lungs 2 times daily. 0 ??? montelukast (SINGULAIR) 10 mg Tablet Take 10 mg by mouth nightly. 1 ??? levothyroxine (SYNTHROID) 75 mcg tablet 75mcg, PO, Once daily No current facility-administered medications on file prior to visit. Current medications: See list. Is patient currently on anticoagulants?: No Allergies: Allergies Allergen Reactions ??? Pneumococcal 23-Valent Polysaccharide Vaccine Other reaction(s): Skin Rash ??? Iodinated Contrast Media Other reaction(s): chest pain ??? Pneumax [Phenylephrine-Guaifenesin] Rash Swelling ??? Ticagrelor Other reaction(s): palpitations ??? Acetaminophen ??? Oxycodone ??? Persantine [Dipyridamole] ??? Povidone-Iodine ??? Shellfish Derived crushing chest pain ??? Simvastatin myalgia ??? Thallium-201 ??? Iodine And Iodide Containing Products Reported chest pressure while eating lobster. PHYSICAL EXAMINATION Vitals: LMP (LMP Unknown) General Examination: Appearance: alert, no distress Respiratory: Normal respiration. Extremity: appears normal Skin: appears normal. Neurological Examination o Higher functions: - Speech: fluent, no aphasia/dysarthria or dysphonia - Alert and oriented. - Able to read without difficulty o Cranial Nerves - II-XII: Pupils bilaterally equal and symmetric conjugate gaze, No ptosis. EOMI. No facial droop. - Hard of hearing - Dizziness with head position changes. o Motor - No drift or weakness in upper or lower extremities. o Sensory - Appreciates light touch equally bilaterally. o Coordination: - No ataxia [place] Stroke Scale: Yes NIH STROKE SCALE 1A. Level of Consciousness 0 1B. LOC Questions 0 1C. LOC Commands 0 2. Best Gaze 0 3. Visual 0 4. Facial Palsy 0 5. Motor Arm Left Arm 0 Right Arm 0 6. Motor Leg Left Leg 0 Right Leg 0 7. Limb Ataxia 0 8. Sensory 0 9. Best Language 0 10. Dysarthria 0 11. Extinction and Inattention (formerly neglect) 0 LABS/IMAGING: ASSESSMENT: 75 Y F with history of HTN, CAD, Hearing loss coming to ED with complaints of dizziness on waking up today morning. Episodes of vertigo in the past but less severe. She has no dizziness at rest but dizzy with movements. She is very hard of hearing. No other deficits. Dizziness precipitatedby head position changes. CT Head unremarkable. IMPRESSION: Vertigo, likely related to vestibular dysfunction. PLAN/RECOMMENDATIONS: ??? Vertigo is likely peripheral in etiology. ??? Meclizine BID. ??? Outpatient vestibular PT and ENT evaluation. ??? Outpatient MRI Brain. ??? Continue aspirin. Orion Patino MD Department of Neurology [facility] documented in this encounter Plan of Treatment Upcoming Encounters Date Type Specialty Care Team Description 09/02/2022 Office Visit Cardiology Patrice Burkett MD [facility] Dr [place], [place] [address] (Wo rk) 11/25/2022 Office Visit Dermatology Kole Mccain MD [address] [place] [address] DERMATOLOGY [place], [place] [address] (Wo rk) documented as of this encounter Visit Diagnoses Not on filedocumented in this encounter Care Teams Explosive Expert Relationship Specialty Start Date End Date Quin Rojas MD PCP - General 04/03/[address] [place], [place] [id number] documented as of this encounter
--- OUTSIDE RECORDS SUMMARY | 2022-03-08 01:55 | XMS_ITS | Encounter Summary ---
:1945 Author Organization [facility] [place] [address] Care Team Providers Name Role Phone Quin Rojas MD Primary Care Provider Encounter Details Date Type Department Care Team Description 11/20/2021 Office Visit Dermatology at Kole Mccain, History of rosacea; Barak JIMENEZ Epidermal cyst; [address] [facility] Seborrheic keratosis Eladio B DERMATOLOGY [place], [place] [id number] [phone] Social History Tobacco Use Types Packs/Day Years [...] encounter Progress Notes Kole Mccain MD - 11/20/2021 3:00 PM EDT Problem: 1. ??Yearly skin checkup 2. ??History of rosacea with ocular rosacea Albina follows up for a recheck. She is been doing well. She is been getting some senile purpura on her arms from minimal bumps. She has she is on aspirin but no other anticoagulants. She was on doxycycline but stopped this because of stomach upset. She was not sure really that it did much for her dryeyes anyway. She tells me that her son Froylan was recently diagnosed with melanoma of the right scalp. She states that it went very very deep. At that same site he had a tuft of hypopigmented hair all of his life. Physical examination reveals a pleasant 76 woman who has a benign examination of the head and neck and the hands arms and forearms. The follicular cyst of her right cheek is much smaller almost resolved. Her rosacea is quiescent. She has no active pustules or papules or significant erythema today. Assessment and plan: Benign skin examination 1. Patient reassured about her benign skin examination 2. Continue sun avoidance precautions Ocular rosacea 1. Patient and I decided not to treat this any further, simply observe it for now. Follicular cyst right cheek 1. We will continue to observe CC: Quin Rojas MD ?? documented in this encounter Plan of Treatment Upcoming Encounters Date Type Specialty Care Team Description 09/02/2022 Office Visit Cardiology Patrice Burkett MD [facility] [address] [place], [place] [address] (Wo rk) 11/25/2022 Office Visit Dermatology Kole Mccain MD [address] [place] [address] DERMATOLOGY [place], [place] [address] (Wo rk) documented as of this encounter Visit Diagnoses Diagnosis History of rosacea Personal history of diseases of skin and subcutaneous tissue Epidermal cyst Sebaceous cyst Seborrheic keratosis Other seborrheic keratosis documented in this encounter Care Teams Public Policy Analyst Relationship Specialty Start Date End Date Quin Rojas MD PCP - General 04/03/10 [facility] [address] [place] [address] documented as of this encounter
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
--- OUTSIDE RECORDS SUMMARY | 2022-03-08 01:55 | XMS_ITS | Encounter Summary ---
:1945 Author Organization [facility] [place] [address] Care Team Providers Name Role Phone Quin Rojas MD Primary Care Provider Reason for Visit Reason Comments Follow-up Encounter Details Date Type Department Care Team Description 02/04/2022 Office Visit Dermatology at Kole Mccain, History of rosacea; Barak JIMENEZ Epidermal cyst; [address] [facility] Seborrheic keratosis Eladio B DERMATOLOGY [place], [place] [id number] [phone] Social History Tobacco Use Types Packs/Day Years [...] encounter Progress Notes Kole Mccain MD - 02/04/2022 10:00 AM EDT Problem: 1. ??Repeat skin checkup 2. ??History of rosacea with ocular rosacea, now quiescent 3. Ongoing visual blurriness ?? 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 She stopped the doxycycline because it was botheringher stomach. She been on that, on and off again since 2018. She states that using refresh eyedrops does not help her visual blurriness at all. She does not really feel that it is helped the blurriness that she has had. She has been seen by Dr. Langford and Dr. Foley and they have not been able to answer her question as to what is causing her visual blurriness now. Physical examination reveals a pleasant 76-year-old woman who has no injection of the conjunctiva orthe cornea. She is appears to have a normal moisture level of the eye itself. She has no facial rosacea. Assessment plan: Visual blurriness 1. Recommend the patient be seen again by her geotechnician. She will choose to go to see Dr. Foley. 2. Agree with discontinuation of doxycycline. No evidence today of cutaneous rosacea nor ocular rosacea 3. Return to clinic in a year for repeat check. documented in this encounter Plan of Treatment Upcoming Encounters Date Type Specialty Care Team Description 09/02/2022 Office Visit Cardiology Patrice Burkett MD [facility] [address] [place], [place] [address] (Wo rk) 11/25/2022 Office Visit Dermatology Kole Mccain MD [address] [facility] DERMATOLOGY [place], [place] [address] (Wo rk) documented as of this encounter Visit Diagnoses Diagnosis History of rosacea Personal history of diseases of skin and subcutaneous tissue Epidermal cyst Sebaceous cyst Seborrheic keratosis Other seborrheic keratosis documented in this encounter Care Teams Assurance Manager Insurance Relationship Specialty Start Date End Date Quin Rojas MD PCP - General 04/03/[address] [place] [address] documented as of this encounter
--- OUTSIDE RECORDS SUMMARY | 2022-03-08 01:55 | XMS_ITS | Encounter Summary ---
:1945 Author Organization [facility] [place] [address] Care Team Providers Name Role Phone Quin Rojas MD Primary Care Provider Reason for Visit Reason Comments Coronary Artery Disease Encounter Details Date Type Department Care Team Description 02/27/2021 Office Visit Cardiology at Patrice Burkett, ASCVD (ar teriosclerotic cardiovascular disease); Barak JIMENEZ Palpitations [address] [facility] [address] [place], [place], [place] [phone] Social History Tobacco [...] Sign Reading Time Taken Comments Blood Pressure 132/63 02/27/2021 2:27 PM EDT Pulse 81 02/27/2021 2:27 PM EDT Temperature - - Respiratory Rate - - Oxygen Saturation - - Inhaled Oxygen Concentration - - Weight 64.4 kg (142 lb) 02/27/2021 2:19 PM EDT Height 155 cm (5' 1.02) 02/27/2021 2:19 PM EDT Body Mass Index 26.81 02/27/2021 2:19 PM EDT documented in this encounter Progress Notes Patrice Burkett MD - 02/27/2021 2:20 PM EDT Images from the original note were not included. Subjective: Patient ID: Albina Thompson is a 75 y.o. female who presents on follow-up for: Chief Complaint Patient presents with ??? Coronary Artery Disease HPI Last seen by me 07/2020, at which time plavix was discontinued (PCI was 02/2019) Since then, she has been doing well. Recently she has been busy helping her rake leaves, anddoes so for ~ 4 hours at a time without having to stop for exertional symptomatology. No angina no untoward dyspnea. She feels much better dating back to the stent implantations bp reasonably controlled at home Gets a couple types of dizziness; the most prominent is when she turns in bed quickly. She also getsan infrequent sensation of something pulling her to a side. Also infrequently becomes orthostatically symptomatic. Current Outpatient Medications: ??? meclizine (Antivert) 25 mg Tablet, Take 25 mg by mouth 3 times daily as needed for Dizziness., Disp: , Rfl: ??? multivitamin Capsule, Take 1 tablet by mouth., Disp: , Rfl: ??? doxycycline (VIBRAMYCIN) 50 mg Capsule, Take one capsule by mouth daily, Disp: 90 capsule, Rfl: 3 ??? nitroGLYcerin (Nitrostat) 0.4 mg Tablet, Sublingual, Place 1 tablet under the tongue every 5 minutes as needed for Chest pain (maximum 3 per day). Indications: dispense bottle(s) of 25 tablet quantities, Disp: 25 tablet, Rfl: 11 ??? cyanocobalamin, Vitamin B-12, (Vitamin B-12) [...] , Rfl: ??? 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 Asthma ??? Hyperlipidemia ??? Rosacea conjunctivitis ??? Primary fibromyalgia syndrome ??? Generalized osteoarthrosis Objective: BP 132/63 (BP Location (NBP): Right arm, Patient Position: Standing, BP Cuff Sizes: Adult (25-34 cm)) Pulse 81 Ht 155 cm (5' 1.02) Wt 64.4 kg (142 lb) LMP (LMP Unknown) BMI 26.81 kg/m?? + orthostatic BP Gen: pleasant female in NAD Cor: rrr, s1/s2 of nl character and amplitude, no m/r/g. Estimated RAP not elevated. Carotids with normal upstroke without bruit. Pulm: CTAB. Normal diaphragmatic movement without use of accessory muscles Assessment and Plan: ASCVD (arteriosclerotic cardiovascular disease) No angina per history. - Anti-Thrombosis: asa 81. - Statin: crestor 5 (max tolerated) - Anti-anginals: GTN PRN, toprol 12.5 Palpitations No issues on current regimen - continue toprol Reviewed dizziness is likely due to either otoliths or dysequilibrium. Orthostatic symptoms with matching change in positional BP; however, not on offending medications to cause such. RTC 6p months Patrice Burkett MD documented in this encounter Miscellaneous Notes Assessment & Plan Note - Patrice Burkett MD - 02/27/2021 2:57 PM EDTAssociated Problem(s): Palpitations No issues on current regimen - continue toprol Assessment & Plan Note - Patrice Burkett MD - 02/27/2021 2:57 PM EDTAssociated Problem(s): ASCVD (arteriosclerotic cardiovascular disease) No angina per history. - Anti-Thrombosis: asa 81. - Statin: crestor 5 (max tolerated) - Anti-anginals: GTN PRN, toprol 12.5 documented in this encounter Plan of Treatment Upcoming Encounters Date Type Specialty Care Team Description 09/02/2022 Office Visit Cardiology Patrice Burkett MD [facility] [address] [place], [place] [address] (Wo rk) 11/25/2022 Office Visit Dermatology Kole Mccain MD [address] [facility] DERMATOLOGY [place], [place] [address] (Wo rk) documented as of this encounter Visit Diagnoses Diagnosis ASCVD (arteriosclerotic cardiovascular d isease) Unspecified cardiovascular disease Palpitations documented in this encounter Care Teams Biometrics Experimentalist Relationship Specialty Start Date End Date Quin Rojas MD PCP - General 04/03/[address] [place], [place] [address] documented as of this encounter
--- OUTSIDE RECORDS SUMMARY | 2022-03-08 01:55 | XMS_ITS | Encounter Summary ---
:1945 Author Organization [facility] [place] [address] Care Team Providers Name Role Phone Quin Rojas MD Primary Care Provider Encounter Details Date Type Department Care Team Description 02/18/2020 Ancillary Procedure Radiology Library at Quin Biggs MD [facility] [address] [address] [place], [place] [phone] (Wo rk) [phone] Social History Tobacco Use Types Packs/Day Years [...] 09/02/2022 Office Visit Cardiology Patrice Burkett MD [facility] [address] [place], [place] [address] (Wo rk) 11/25/2022 Office Visit Dermatology Kole Mccain MD [address] [facility] [address] DERMATOLOGY [place], [place] [address] (Wo rk) documented as of this encounter Procedures Procedure Name Priority Date/Time Associated Diagnosis Comme nts FILM Routine 02/18/2020 12:00 AM Results for this LIBRARY-STORAGE EDT procedure ar e in ONLY US BREAST the results section. documented in this encounter Results Film Library Storage Only US Breast (02/18/2020 12:00 AM EDT) Specimen (Source) Anatomical Location Collection Method / Collectio n Time Received Time / Laterality Volume Narrative RAD - 02/29/2020 10:47 AM EDT This exam is auto-finalizing. It's purpo se is for storage only. Quin Rojas MD IMG FILM LIBRARY ORDERABLES Performing Organization Address City/State/ZIP Code Phon e Number [place], [place] documented in this encounter Visit Diagnoses Not on filedocumented in this encounter Care Teams Field Assembly Supervisor Relationship Specialty Start Date End Date Quin Rojas MD PCP - General 04/03/[address] [place], [place] [address] documented as of this encounter
--- OUTSIDE RECORDS SUMMARY | 2022-03-08 01:55 | XMS_ITS | Encounter Summary ---
:1945 Author Organization [facility] [place] [address] Care Team Providers Name Role Phone Quin Rojas MD Primary Care Provider Encounter Details Date Type Department Care Team Description 09/12/2021 Telephone Cardiology at [facility] Niki Kimball, RN [address] [place] [phone] Social History Tobacco Use Types [...] Telephone Encounter - Niki Kimball RN - 09/12/2021 1:29 PM EDT Albina Thompson called. She has tested positive for COVID 19 after several days of symptoms, which continue to be mild. Recommendation: continue to self-isolate and notify your pcp Quin Rojas tomorrow when she returns to clinic documented in this encounter Plan of Treatment Upcoming Encounters Date Type Specialty Care Team Description 09/02/2022 Office Visit Cardiology Patrice Burkett MD [facility] [address] [place], [place] [address] (Wo rk) 11/25/2022 Office Visit Dermatology Kole Mccain MD [address] [place] [address] DERMATOLOGY [place], [place] [address] (Wo rk) documented as of this encounter Visit Diagnoses Not on filedocumented in this encounter Care Teams Manager Printing Relationship Specialty Start Date End Date Quin Rojas MD PCP - General 04/03/[address] [place] [address] documented as of this encounter
--- OUTSIDE RECORDS SUMMARY | 2022-03-08 01:55 | XMS_ITS | Encounter Summary ---
:1945 Author Organization [facility] [place] [address] Care Team Providers Name Role Phone Quin Rojas MD Primary Care Provider Encounter Details Date Type Department Care Team Description 11/17/2020 Refill Dermatology at [facility] Symone López LPN [address] [place] [address] Social History Tobacco Use Types Packs/Day [...] Burkett MD [facility] [address] [place], [place] [address] ([place]) 11/25/2022 Office Visit Dermatology Kole Mccain MD [address] [facility] DERMATOLOGY [place], [place] [address] (Wo rk) documented as of this encounter Visit Diagnoses Not on filedocumented in this encounter Care Teams Bleach Boiler Filler Relationship Specialty Start Date End Date Quin Rojas MD PCP - General 04/03/[address] [place] [address] documented as of this encounter
--- OUTSIDE RECORDS SUMMARY | 2022-03-08 01:56 | XMS_ITS | Encounter Summary ---
:1945 [place] [address] Care Team Providers Name Role Phone Quin Rojas MD Primary Care Provider Encounter Details Date Type Department Care Team Description 08/03/2019 Telephone Cardiology at [facility] Patrice Burkett MD [address] [place] [address] [place] [address] [place] [address] [phone] (Wo rk) Social History Tobacco Use Types [...] this encounter Miscellaneous Notes Telephone Encounter - Negar, Arlene Pappas - 08/03/2019 1:45 PM EDT Albina called wanting to speak to Dr Burkett. She word a Zio for 2 weeks and received the results from Dr Rojas. I called asking for the report and the last couple of office notes. Albina said she started to feel faint, week and shakey. Pulse rate 48 to 50. # [phone] Please call. documented in this encounter Plan of Treatment Upcoming Encounters Date Type Specialty Care Team Description 09/02/2022 Office Visit Cardiology Patrice Burkett MD [facility] [address] [place], [place] [address] (Wo rk) 11/25/2022 Office Visit Dermatology Kole Mccain MD [address] [facility] DERMATOLOGY [place], [place] [address] (Wo rk) documented as of this encounter Visit Diagnoses Not on filedocumented in this encounter Care Teams Pai Gow Dealer Relationship Specialty Start Date End Date Quin Rojas MD PCP - General 04/03/[address] [place] [address] documented as of this encounter
--- OUTSIDE RECORDS SUMMARY | 2022-03-08 01:56 | XMS_ITS | Encounter Summary ---
:1945 [place] [address] Care Team Providers Name Role Phone Quin Rojas MD Primary Care Provider Encounter Details Date Type Department Care Team Description 04/29/2019 Telephone Cardiology at [facility] Kane Herrmann [facility] [place] [address] CARDIOLOGY DEPT [phone] [place] [address] (Wo rk) Social History Tobacco Use Types [...] this encounter Miscellaneous Notes Telephone Encounter - Kane Herrmann DO - 04/29/2019 8:09 PM EST Received call from provider at [place], trops negative x 2, no ischemic EKG changes, vitals stable, no chest pain. No episodes of hypotension or chest pain since arrival there. Providers hoping to discharge pt home. Agreed reasonable to discharge pt with oupatient f/u with rn cardiology there. documented in this encounter Plan of Treatment Upcoming Encounters Date Type Specialty Care Team Description 09/02/2022 Office Visit Cardiology Patrice Burkett MD [facility] [place] [address] [place], [place] [address] (Wo rk) 11/25/2022 Office Visit Dermatology Kole Mccain MD [address] [facility] DERMATOLOGY [place], [place] [address] (Wo rk) documented as of this encounter Visit Diagnoses Not on filedocumented in this encounter Care Teams Bedspread Cutter Hand Relationship Specialty Start Date End Date Quin Rojas MD PCP - General 04/03/[address] [place], [place] [address] documented as of this encounter
--- OUTSIDE RECORDS SUMMARY | 2022-03-08 01:56 | XMS_ITS | Encounter Summary ---
:1945 [place] [address] Care Team Providers Name Role Phone Quin Rojas MD Primary Care Provider Encounter Details Date Type Department Care Team Description 08/25/2019 Telephone Cardiology at [facility] PalPatrice MD [address] [place] [address] [place] [address] [place] [address] [phone] (Wo rk) Social History Tobacco Use Types [...] Telephone Encounter - Niki Kimball RN - 08/25/2019 5:08 PM EDT Called patient back with his instructions. Her BP is now >200/>100. She agrees to be evaluated at the ER. Telephone Encounter - Niki Kimball RN - 08/25/2019 5:00 PM EDT Her concern is not medications. Her concern is hypertension. She had a normal morning when she had B12 injection at Dr. Valdez. Instructions then was to topmidodrine. Dr. Burkett called her later that afternoon and agreed that was the plan. Later around 4:30 pm her BP was 139/69 and pulse 76. 8 am today BP 144/76 This afternoon she felt weak and shakey. Her BP 199/98 and 197/100. Her last dose of midodrine was yesterday morning. Instructions until she gets a call back from me: Sit. Drink a glass of water. Recheck BP and if systolic > 200 and/or diastolic >100 (already at 100 now) please go to ER Notified Dr. Burkett His instructions: Stay stopped on midodrine. Stop fludrocortisone Telephone Encounter - Isa Morales - 08/25/2019 4:42 PM EDT Patient called because she has questions about her medications. Please call her back @ [phone]. documented in this encounter Plan of Treatment Upcoming Encounters Date Type Specialty Care Team Description 09/02/2022 Office Visit Cardiology Patrice Burkett MD [facility] [address] [place] [address] (Wo rk) 11/25/2022 Office Visit Dermatology Kole Mccain MD [address] [place] [address] DERMATOLOGY [place], [place] [address] (Wo rk) documented as of this encounter Visit Diagnoses Not on filedocumented in this encounter Care Teams Director Inbound Sales Relationship Specialty Start Date End Date Quin Rojas MD PCP - General 04/03/[address] [place] [address] documented as of this encounter
--- OUTSIDE RECORDS SUMMARY | 2022-03-08 01:56 | XMS_ITS | Encounter Summary ---
:1945 Author Organization [facility] [place] [address] Care Team Providers Name Role Phone Quin Rojas MD Primary Care Provider Reason for Visit Reason Comments Follow-up F/U ASCVD, Discharge on 1 and [facility] on 04/25/19 Chest Pain Encounter Details Date Type Department Care Team Description 05/17/2019 [facility] Atheroscl erosis of pam[place]key coronary artery of pamunkey heart without angina pectoris; Barak JIMENEZ Palpitations [address] [place], [place], [place] [phone] Social History Tobacco Use Types Packs/Day Years [...] Sign Reading Time Taken Comments Blood Pressure 113/44 05/17/2019 11:30 AM EST Pulse 76 05/17/2019 11:18 AM EST Temperature - - Respiratory Rate - - Oxygen Saturation - - Inhaled Oxygen Concentration - - Weight 68.9 kg (152 lb) 05/17/2019 11:18 AM EST Height 154.9 cm (5' 1) 05/17/2019 11:18 AM EST Body Mass Index 28.72 05/17/2019 11:18 AM EST documented in this encounter Patient Instructions Patient InstructionsStPatrice dobbs MD - 05/17/2019 11:40 AM EST - Stop taking the ticagrelor as of tomorrow morning - Take 4 tablets of the Plavix tomorrow morning instead - Then, take 1 tablet of Plavix every morning documented in this encounter Progress Notes Patrice Burkett MD - 05/17/2019 11:40 AM EST Subjective: Patient ID: Albina Thompson is a 73 y.o. female. Chief Complaint Patient presents with ??? Follow-up F/U ASCVD, Discharge on 02/17/19 and [facility] on 04/25/19 ??? Chest Pain HPI 73 F presents on fu for cad. Last seen by me in the office 03/17/2019, at which time no changes were made. A Holter was obtained for palpitations which demonstrated no significant findings. Since then, she had continued CP syndrome; a stress test was obtained which demonstrated possible septal/apical ischemia, and with continued symptoms after initiation of imdur, was reeferred to for cath; she had non-obstructive disease, and ranexa was started. It has since been discontinued. She has good and bad days; what makes days bad a frequent sensations of extra heart beats that radiate to the neck. This is associated with fatigue and dyspnea. She has not had further chest pain. She continues to endorse ÓSCAR II-III dyspnea that started since the cath. ROS 11 point ROS either negative or per HPI Allergies Allergen Reactions ??? Pneumax [Phenylephrine-Guaifenesin] Rash Swelling ??? Oxycodone ??? Persantine [Dipyridamole] ??? Povidone-Iodine ??? Shellfish Derived crushing chest pain ??? Simvastatin myalgia ??? Thallium-201 ??? Iodine And Iodide Containing Products Reported chest pressure while eating lobster. Current Outpatient Medications Medication Sig Dispense Refill ??? acebutolol (SECTRAL) 200 mg Capsule Take 1 capsule by mouth 2 times daily. 60 capsule 0 ??? nitroGLYcerin (NITROSTAT) 0.4 mg Tablet, Sublingual Place 1 tablet under the tongue every 5 minutes as needed for Chest pain (maximum 3 per day). 25 tablet 3 ??? CRESTOR 5 mg Tablet Take 1 tablet by mouth nightly. 30 tablet 2 ??? acetaminophen (TYLENOL) 500 mg Tablet Take 1,000 mg by mouth every 6 hours as needed for Pain. ??? VENTOLIN HFA 90 mcg/actuation HFA Aerosol Inhaler Inhale 2 puffs into the lungs 2 times daily asneeded. 1 ??? vit A/C/E ac/ZnOx/cupric oxide (EYE VITAMIN AND MINERALS ORAL) Take 1 capsule by mouth daily. ??? fluticasone (FLONASE) 50 mcg/actuation [place], Suspension 2 sprays by Each Nare route nightly. ??? cyclobenzaprine (FLEXERIL) 5 mg Tablet Take 5 mg by mouth 3 times daily as needed for Muscle spasms. ??? cycloSPORINE (RESTASIS) 0.05 % Dropperette 1 drop 2 times daily. ??? aspirin 81 mg Tablet, Delayed Release (E.C.) Take 81 mg by mouth daily. ??? cholecalciferol, Vitamin D3, (CHOLECALCIFEROL, VITAMIN D3,) 2,000 unit Capsule Take 2,000 Units by mouth 2 times daily. ??? ubiquinone (COENZYME Q10) 10 mg Capsule Take 100 mg by mouth daily. ??? ADVAIR DISKUS 250-50 mcg/dose Disk with Device Inhale 1 puff into the lungs 2 times daily. 0 ??? montelukast (SINGULAIR) 10 mg Tablet Take 10 mg by mouth nightly. 1 ??? ranitidine (ZANTAC) 150 mg Tablet Take 150 mg by mouth 2 times daily. 1 ??? levothyroxine (SYNTHROID) 75 mcg tablet 75mcg, PO, Once daily ??? clopidogrel (PLAVIX) 75 mg Tablet Take 1 tablet by mouth daily. 30 tablet 3 No current facility-administered medications for this visit. Patient Active Problem List Diagnosis ??? Unstable angina ??? Palpitations 2013: negative Holter 03/2019: There [...] ??? Essential hypertension ??? Coronary atherosclerosis of pamunkey coronary artery 2005: 2 stents to mid LAD and stent to osteal D2 (bifurcation lesion) at [facility] 01/2018- ST II, HR 126, BP [...] ??? Hyperlipidemia ??? Posterior tibial tendon dysfunction ??? Ocular rosacea Objective: Physical Exam BP 113/44 (BP Location (NBP): Left arm, Patient Position: Standing) Pulse 76 Ht 154.9 cm (5' 1) Wt 68.9 kg (152 lb) LMP (LMP Unknown) BMI 28.72 kg/m?? Gen: pleasant female in NAD Cor: irr reg, s1/s2 of nl character and amplitude, no m/r/g. Estimated RAP not elevated. Carotids with normal upstroke without bruit. Pulm: CTAB. Normal diaphragmatic movement without use of accessory muscles Ab: soft, nt, nd Ext: no c/c/e. Dp/pt ++. RRA with very small seroma Neuro: without focal deficit. Well kempt, good insight and normal affect Skin: WWP, no rashes nor ulcers EKG: nsr with atrial bigeminy TTE 02/2019 1. The left ventricular chamber size is normal. Left ventricular wall thickness is normal. There is normal global left ventricular systolic function. The quantitative left ventricular ejection fraction by biplane Smith's method is 72%. There are no left ventricular segmental wall motion abnormalities. Assessment of diastolic function is indeterminate. 2. The left atrium is mildly dilated. 3. The right ventricle is normal in size. Right ventricular global systolic function is normal. The estimated pulmonary artery systolic pressure is 25 mmHg. 4. There is no hemodynamically significant valve disease. Assessment and Plan: Coronary atherosclerosis of pamunkey coronary artery No angina per history. I wonder if the ticagrelor is causing some dyspnea; will switch to plavix - Anti-Thrombosis: asa 81. D/c ticagrelor after tonight's dose. Plavix 300mg x 1 tomorrow am, then 75mg qAM thereafter - Statin: crestor 5 (intolerant) - Anti-anginals: GTN PRN Palpitations I think PVCs or arrhythmias are sensed rather easily by the patient. Discussed that this is the mostlikely cause of the symptoms, but they are benign, so treatment is targeted at symptoms. Discussed possibility of increasing Sectral, but patient would rather not increase medications again at this time. It is interesting that today's EKG demonstrated atrial bigeminy, and she was without symptoms ofchest heaviness as reported on the 03/2019 Holter - Continue sectral 200 bid RTC 3 months Patrice Burkett MD documented in this encounter Miscellaneous Notes Assessment & Plan Note - Patrice Burkett MD - 05/17/2019 3:33 PM ESTAssociated Problem(s): Palpitations I think PVCs or arrhythmias are sensed rather easily by the patient. Discussed that this is the mostlikely cause of the symptoms, but they are benign, so treatment is targeted at symptoms. Discussed possibility of increasing Sectral, but patient would rather not increase medications again at this time. It is interesting that today's EKG demonstrated atrial bigeminy, and she was without symptoms ofchest heaviness as reported on the 03/2019 Holter - Continue sectral 200 bid Assessment & Plan Note - Patrice Burkett MD - 05/17/2019 3:30 PM ESTAssociated Problem(s): ASCVD (arteriosclerotic cardiovascular disease) No angina per history. I wonder if the ticagrelor is causing some dyspnea; will switch to plavix - Anti-Thrombosis: asa 81. D/c ticagrelor after tonight's dose. Plavix 300mg x 1 tomorrow am, then 75mg qAM thereafter - Statin: crestor 5 (intolerant) - Anti-anginals: GTN PRN documented in this encounter Plan of Treatment Upcoming Encounters Date Type Specialty Care Team Description 09/02/2022 Office Visit Cardiology Patrice Burkett MD [facility] [address] [place], [place] [address] [place] 11/25/2022 Office Visit Dermatology Kole Mccain MD [address] [facility] D[facility] [place], [place] [address] ([place]) documented as of this encounter Procedures Procedure Name Priority Date/Time Associated Diagnosis Comme nts EKG 12-LEAD Routine 05/17/2019 11:28 AM Results for this EST procedure are i n the results section . documented in this encounter Results EKG 12 Lead (05/17/2019 11:28 AM EST) Component Value Ref Range Test Analysis Performed Pathologis t Method Time At Signature Ventricular rate 77 BPM MUSE SYSTEM Atrial Rate 77 BPM MUSE SYSTEM P-R Interval 160 ms MUSE SYSTEM QRS Duration 86 ms MUSE SYSTEM Q-T Interval 368 ms MUSE SYSTEM QTC Calculated 416 ms MUSE SYSTEM (Bezet) Calculated P 51 degrees MUSE SYSTEM Worden Calculated R 42 degrees MUSE SYSTEM [place] Calculated T 61 degrees MUSE SYSTEM [place] INTERPRETATION Sinus rhythm with Premature supraventricular complexes in a pattern of bigeminy MUSE SYSTEM Nonspecific T wave abnormality Abnormal ECG When compared with ECG of 23-APR-2019 17:25, Premature ventricular complexes are no longer Present Premature supraventricular complexes are now Present Confirmed by MD Burkett Daniel ([id number]) on 05/21/2019 4:45:35 PM Specimen Anatomical Collection Method Collection Time Receive d Time (Source) Location / / Volume Laterality 05/17/2019 11:28 05/21/2019 4:45 AM EST PM EST Unknown ECG ORDERABLES Performing Organization Address City/State/ZIP Code Phon e Number MUSE SYSTEM documented in this encounter Visit Diagnoses Diagnosis Atherosclerosis of pamunkey coronary arter y of pamunkey heart without angina pectoris Palpitations documented in this encounter Care Teams Contract Associate Manager Relationship Specialty Start Date End Date Quin Rojas MD PCP - General 04/03/[address] [place] [address] documented as of this encounter
--- OUTSIDE RECORDS SUMMARY | 2022-03-08 01:56 | XMS_ITS | Encounter Summary ---
:1945 Author Organization [facility] [place] [address] Care Team Providers Name Role Phone Quin Rojas MD Primary Care Provider Encounter Details Date Type Department Care Team Description 08/26/2019 Telephone Cardiology at [facility] Niki Kimball, RN [address] [place] [phone] Social History Tobacco Use Types [...] encounter Miscellaneous Notes Telephone Encounter - Niki Kimball, RN - 08/27/2019 10:16 AM EDT Albnia called to tell me how she is doing today. She has been taking blood pressure, four times already this morning. She reports 165/89, 161/78, 147/75, and 151/76 with a pulse consistently in the 80/min range. I advised her to discontinue taking her blood pressure hourly, as it is good numbers today. Albina informs me she was given metoprolol tartrate 50 mg oral at 3 pm yesterday. The prescription was picked up from [facility] and the label reads metoprolol tartrate 50 mg 1 tablet 2 times per day. Albina states firmly that she will not take the metoprolol. It's supposed to lower my blood pressure. I confirmed that yes, metoprolol lowers her blood pressure and the effects of the dose from 3 pm yesterday are of about 12 hours duration and wearing off. I advised her to take the metoprolol exactly as written on the label. She reports that she often needs half the amount of prescribed medication other people need, she often has bad effects from medications. Albina is frustrated, apologizes for arguing with me, and (as usual) struggles with expressing her thoughts effectively and in cohesive sentences. Patient's plan: resume usual meds and NOT take metoprolol Nurse plan: education and avocation of taking metoprolol exactly as prescribed but patient refuses Informed patient that I will advise Dr. Burkett of how she is doing today and request that he call her to discuss the metoprolol if he is able around his other duties today. Addendum: Patient called back to say, again with great difficulty, that she spoke with Dr. Santoyo last evening and it was Dr. Santoyo who told her not to take metoprolol until discussing it with Dr. Burkett. *[facility] ceased to be a pharmacy approximately 10 years ago. The current store frontage is [employer]. I did not correct her as it would upset her further. The pharmacy she uses is [facility], 1/4 [address] from the former [facility]. Telephone Encounter - Niki Kimball RN - 08/27/2019 8:56 AM EDT Patient called this office to ask for help with a discharge prescription medication that Dr. Fernandez was sending to her pharmacy. Dr. Fernandez is he [facility] hospitalist. I cannot advocate or hasten the order processing.Patient says she will be taking metoprolol, not really a new medication, because she has taken it inthe past. Telephone Encounter - Niki Kimball RN - 08/26/2019 8:19 AM EDT Patient was admitted to [facility] to Room 129 from the ER with uncontrolled hypertension. She is in good spirits today. She does not know the treatment plan for the day yet. Emotional support provided documented in this encounter Plan of Treatment Upcoming Encounters Date Type Specialty Care Team Description 09/02/2022 Office Visit Cardiology Patrice Burkett MD [facility] er [address] [place] [address] ([place]) 11/25/2022 Office Visit Dermatology Kole Mccain MD [address] [facility] D[facility] [place], [place] [address] ([place]) documented as of this encounter Visit Diagnoses Not on filedocumented in this encounter Care Teams Pediatric Orthodontist Relationship Specialty Start Date End Date Quin Rojas MD PCP - General 04/03/[address] [place] [address] documented as of this encounter
--- OUTSIDE RECORDS SUMMARY | 2022-03-08 01:56 | XMS_ITS | Encounter Summary ---
:1945 [place] [address] Care Team Providers Name Role Phone Quin Rojas MD Primary Care Provider Encounter Details Date Type Department Care Team Description 04/29/2019 Telephone Cardiology at [facility] Sandi Moreland APRN [facility] [place] [address] [place] [address] [phone] ([place]) Social History Tobacco Use Types [...] this encounter Miscellaneous Notes Telephone Encounter - Sandi Moreland APRN - 04/29/2019 3:19 PM EST 04/29/2019 Albina Shankarsalvador Initial Contact Date: 04/29/2019 Initial contact time: 14:51 Referring Provider: Suzy Kauffman APRN Patient Location: [facility] Past Medical History: ASCVD: previous stents to LAD, D2, OM1, LCx Presenting Symptoms per OSH: Patient presented to OSH ED with reports of exertional shortness of breath and activity intolerance,as well as bilateral upper and lower extremity numbness. She reportedly took a nitro at home which improved her symptoms. See telephone note from earlier today- patient called Dr. Burkett' office with complaints of her knees giving out, possible orthostatic hypotension. Per OSH provider, the patient's neurologic exam is normal, no focal deficits or upper or lower extremity weakness. Pertinent Diagnostic Findings: Troponin negative BMP wnl VSS (HR 69, SBP 147) EKG with HR 61, SR, no acute ST abnormalities Past cardiac studies: Cath 04/23/19: Non-obstructive CAD OSH Interventions: Trend troponin Check orthostatics Continue to monitor Plan: The OSH will check a second troponin and monitor the patient for a few more hours. I shared the cathreport from 04/23/19, indicating non-obstructive disease, with Suzy Kauffman. Also briefly discussed the patient's case with Dr. Burkett. Recommended continuing beta renan (given history of ventricular bigeminy), trialing compression stockings for possible orthostatic hypotension, and follow up withcardiology as an outpatient. - above recommendations were based on my discussion with Suzy Kauffman APRN; I have not personallyinterviewed or examined this patient. Sandi Moreland, [employer], PROPERTY LOSS INSURANCE CLAIM ADJUSTER-BC, AUDIO/VISUAL MANAGER [facility] Cardiovascular Medicine documented in this encounter Plan of Treatment Upcoming Encounters Date Type Specialty Care Team Description 09/02/2022 Office Visit Cardiology Patrice Burkett MD [facility] [address] [place] [address] ([place]) 11/25/2022 Office Visit Dermatology Kole Mccain MD [address] [facility] D[facility] [place], [place] [address] ([place]) documented as of this encounter Visit Diagnoses Not on filedocumented in this encounter Care Teams Gasfitter Relationship Specialty Start Date End Date Dobbertin, Quin, MD PCP - General 04/03/[address] [place] [address] documented as of this encounter
--- OUTSIDE RECORDS SUMMARY | 2022-03-08 01:56 | XMS_ITS | Encounter Summary ---
:1945 [place] [address] Care Team Providers Name Role Phone Quin Rojas MD Primary Care Provider Encounter Details Date Type Department Care Team Description 04/29/2019 Telephone Cardiology at [facility] Patrice Burkett MD [address] [place] [address] [place] [address] [place] [address] [phone] ([place]) Social History Tobacco Use Types [...] Notes Telephone Encounter - Arlene Bills - 05/04/2019 2:07 PM EST Patient confirmed appt Telephone Encounter - Arlene Bills - 05/04/2019 2:04 PM EST appt scheduled 05/17/2019 11:40 am Left message Telephone Encounter - Chito Brooks RN - 05/03/2019 1:37 PM EST Called and let patient know. She does report feeling better off the Renolazine. Did also report not sleeping well last night and reports of some SOB today. She said she is seeing her PCP today. Let her know we will have Ally call and move up appointment. Telephone Encounter - Chito Brooks RN - 05/03/2019 1:37 PM EST ----- Message from Patrice Burkett MD sent at 05/03/2019 10:15 AM EST ----- That's fine; though it remains very unclear what she's experiencing; cath, echo, Holter all without symptomatic pathology. It would also be reasonable for her to followup with her PCP Thanks! aleta ----- Message ----- From: Chito Brooks RN Sent: 05/03/2019 9:53 AM EST To: Patrice Burkett MD Patient in the ER again over the weekend, phone note in ed-h. Have called for [facility] record and will have them scanned once received. Does she need sooner appt than her one already scheduled in June? Telephone Encounter - Isa Morales - 04/29/2019 11:47 AM EST Patient has been having spells ever since she got back from . Today she was sitting down and when she got up her knees gave out. She feels like her blood pressuredrops fast. She almost passed out and is numb and shaky. She feels if it happens again she will need to go to the ER. Please call her back at [phone] Niki Kimball RN, writing: Called patient at home at 11:55 am. We reviewed symptoms she reported (above). She did a food and beverage recall since awakening. - only small orange juice serving and one cup decaf coffee. She has eaten a normal breakfast for her. She had taken a NTG just before my call and was feeling a little better. Instructed patient: first: drink a large glass of water. Pe-[id number]-[id number] how you are feeling Next: if still symptomatic, you should be seen by a provider. This office has Dr. Sampson who can see her this afternoon. The [facility] ER, [facility], and the Urgent Care clinic on [facility] are choices for her. She wishes to think about it. documented in this encounter Plan of Treatment Upcoming Encounters Date Type Specialty Care Team Description 09/02/2022 Office Visit Cardiology Patrice Burkett MD [facility] [place] [address] [place], [place] [address] ([place]) 11/25/2022 Office Visit Dermatology Kole Mccain MD [address] [place] [address] DERMATOLOGY [place], [place] [address] ([place]) documented as of this encounter Visit Diagnoses Not on filedocumented in this encounter Care Teams Raw Hide Trimmer Relationship Specialty Start Date End Date Quin Rojas MD PCP - General 04/03/[address] [place] [address] documented as of this encounter
--- OUTSIDE RECORDS SUMMARY | 2022-03-08 01:56 | XMS_ITS | Encounter Summary ---
:1945 [place] [address] Care Team Providers Name Role Phone Quin Rojas MD Primary Care Provider Encounter Details Date Type Department Care Team Description 08/24/2019 Refill Cardiology at [facility] Patrice Burkett MD [address] [place] [address] [place] [address] [place] [address] [phone] ([place]) Social History Tobacco Use Types [...] Notes Telephone Encounter - Arlene Bills - 08/24/2019 9:56 AM EDT Patient called needing refills for meds. Crestor 5 mg 1 tab daily at night Fludrocortisone 0.1 mg 1 tab daily Vit B-12 1000 mcg 1 tab daily Midodrine 2.5 mg 1 tab daily Vit B-1 100 mg 1 tab daily Clopidogrel 75 mg 1 tab daily She feel good, but she would like to speak with Dr. Burkett about her BP. [phone] Please send these medications to [facility] in [place]. She is not sure if she needs a 1 month or a 3 month supply. She is leaving that up to Dr Burkett. She wants to use [facility] in [place] for her medications as she can do a drive thru and not haveto go inside. documented in this encounter Plan of Treatment Upcoming Encounters Date Type Specialty Care Team Description 09/02/2022 Office Visit Cardiology Patrice Burkett MD [facility] [address] [place], [place] [address] ([place]) 11/25/2022 Office Visit Dermatology Kole Mccain MD [address] [facility] D[facility] [place], [place] [address] ([place]) documented as of this encounter Visit Diagnoses Diagnosis Orthostatic hypotension Hyperlipidemia, unspecified hyperlipidem ia type Palpitations Atherosclerosis of [place] coronary arter y of [place] heart without angina pectoris documented in this encounter Care Teams Breastfeeding Program Coordinator Relationship Specialty Start Date End Date Quin Rojas MD PCP - General 04/03/[address] [place] [address] documented as of this encounter
--- OUTSIDE RECORDS SUMMARY | 2022-03-08 01:56 | XMS_ITS | Encounter Summary ---
:1945 Author Organization [facility] [place] [address] Care Team Providers Name Role Phone Quin Rojas MD Primary Care Provider Reason for Visit Reason Onset Date Comments Medication Refill 05/24/2019 Encounter Details Date Type Department Care Team Description 05/24/2019 Refill Cardiology at [facility] Patrice Burkett MD Medication Refill [address] [facility] [place] [address] [place] [address] [phone] ([place]) Social History Tobacco Use Types [...] Burkett MD [facility] [address] [place] [address] ([place]) 11/25/2022 Office Visit Dermatology Kole Mccain MD [address] [facility] DER[facility] [place], [place] [address] ([place]) documented as of this encounter Visit Diagnoses Diagnosis Palpitations documented in this encounter Care Teams Customer Sales Advisor Relationship Specialty Start Date End Date Quin Rojas MD PCP - General 04/03/[address] [place], [place] [address] documented as of this encounter
--- OUTSIDE RECORDS SUMMARY | 2022-03-08 01:56 | XMS_ITS | Encounter Summary ---
:1945 [place] [address] Care Team Providers Name Role Phone Quin Rojas MD Primary Care Provider Encounter Details Date Type Department Care Team Description 08/27/2019 Telephone Cardiology Talya Santoyo MD [facility] [place] [address] CARDIOLOGY DEPT [phone] [place] [id number] (Wo rk) Social History Tobacco Use Types [...] this encounter Miscellaneous Notes Telephone Encounter - Talya Santoyo MD - 08/27/2019 6:36 AM EDT Telephone call from patient at 5:50 pm. She notes that she was discharged from [facility] on 08/24 where she was seen for hypertension. She was told to stop her fludrocortisone and midodrine, which she has. She is confused as to when to take a new medication they prescribed her. She does not have an AVS/discharge and thinks it was metoprolol tartrate 50 mg BID. Her BP is currently 192/91. She deniesany chest discomfort, lightheadedness or dizziness; only complaint has been weakness. She thinks shetook metoprolol earlier in the day but is not sure. I recommended that she take a dose of metoprololtomorrow morning to resume her normal schedule and to call [facility] for a discharge summary for her new medication regimen. Talya Santoyo MD Cardiovascular Disease Fellow, PGY-5 [facility] # [id number] Cc: MD Madelaine documented in this encounter Plan of Treatment Upcoming Encounters Date Type Specialty Care Team Description 09/02/2022 Office Visit Cardiology Patrice Burkett MD [facility] [address] [place], [place] [address] (Wo rk) 11/25/2022 Office Visit Dermatology Kole Mccain MD [address] [facility] DERMATOLOGY [place], [place] [address] (Wo rk) documented as of this encounter Visit Diagnoses Not on filedocumented in this encounter Care Teams Education Supervisor Relationship Specialty Start Date End Date Quin Rojas MD PCP - General 04/03/[address] [place] [address] documented as of this encounter
--- OUTSIDE RECORDS SUMMARY | 2022-03-08 01:56 | XMS_ITS | Encounter Summary ---
:1945 [place] [address] Care Team Providers Name Role Phone Quin Rojas MD Primary Care Provider Encounter Details Date Type Department Care Team Description 08/04/2019 Telephone Cardiology at [facility] Patrice Burkett MD [address] [place] [address] [place] [address] [place] [address] [phone] (Wo rk) Social History Tobacco Use Types [...] this encounter Miscellaneous Notes Telephone Encounter - Argentina Alaniz RN - 08/04/2019 1:17 PM EDT Sectral 400 mg BID Called patient to update on medication changes.Patient read back orders and verbalized understanding. Patient states the nitro helped with symptoms. Telephone Encounter - Argentina Alaniz RN - 08/04/2019 11:58 AM EDT Patient states that her BP is 122/65 with HR of 41, reports feeling shaky and unwell. Nurse reviewednote from yesterdays converstaion with MD Burkett and providing active listening and education. Patient states she did take a nitro and hopes that will help but does not want to go to the ER or urgent care clinic. Patient states she would like to try the medication change MD Burkett recommened yesterday, nurse will update MD Burkett for futher orders. Telephone Encounter - Arlene Bills - 08/04/2019 11:00 AM EDT Patient called, she is feeling shakey, BP 111/60 47 Pulse. She took her 81 mg aspirin, Acebutolol 200 mg and her Plavix 75 mg. She is very concerned. Please call her [phone] documented in this encounter Plan of Treatment Upcoming Encounters Date Type Specialty Care Team Description 09/02/2022 Office Visit Cardiology Patrice Burkett MD [facility] [address] [place] [address] (Wo rk) 11/25/2022 Office Visit Dermatology Kole Mccain MD [address] [facility] DERMATOLOGY [place], [place] [address] (Wo rk) documented as of this encounter Visit Diagnoses Not on filedocumented in this encounter Care Teams Junior Mechanical Engineer Relationship Specialty Start Date End Date Quin Rojas MD PCP - General 04/03/[address] [place] [address] documented as of this encounter
--- OUTSIDE RECORDS SUMMARY | 2022-03-08 01:56 | XMS_ITS | Encounter Summary ---
:1945 [place] [address] Care Team Providers Name Role Phone Quin Rojas MD Primary Care Provider Reason for Referral Diagnostic Test (Routine) - Closed Specialty Diagnoses / Procedures Referred By Contact Refer red To Contact Cardiology Diagnoses Dyspnea, unspecified type Patrice Burkett MD Lit Cardiology Procedures Echocardiogram [facility] [place] [address] [place] [address] Phone: Fax: Referral ID Status Reason Start Date Expiration Date Visits V isits Requested Authorized [id number] Closed Specialty 11/01/2019 10/31/2020 1 1 Service Requested Encounter Details Date Type Department Care Team Description 11/01/2019 Orders Only Cardiology at Patrice Burkett, Dyspnea, unspecified Barak JIMENEZ type [address] [facility] [address] [place] [phone] Social History Tobacco Use Types [...] 09/02/2022 Office Visit Cardiology Patrice Burkett MD [facility] [address] [place], [place] [address] (Wo rk) 11/25/2022 Office Visit Dermatology Kole Mccain MD [address] [place] [address] DERMATOLOGY [place], [place] [address] (Wo rk) Scheduled Orders Name Type Priority Associated Diagnoses Order S chedule Echocardiogram Echocardiography Routine Dyspnea, unspecified E xpected: South/External type 11/01/2019, Expires: 10/30/2020 documented as of this encounter Visit Diagnoses Diagnosis Dyspnea, unspecified type documented in this encounter Care Teams Cut And Cover Line Worker Relationship Specialty Start Date End Date Quin Rojas MD PCP - General 04/03/[address] [place] [address] documented as of this encounter
--- OUTSIDE RECORDS SUMMARY | 2022-03-08 01:56 | XMS_ITS | Encounter Summary ---
:1945 Author Organization [facility] [place] [address] Care Team Providers Name Role Phone Quin Rojas MD Primary Care Provider Reason for Visit Reason Comments Shortness of Breath Encounter Details Date Type Department Care Team Description 11/23/2019 Ext Surgery or [facility] Patrice Burkett Dy spnea, unspecified Single Event Hospital MD type [address] [facility] [address] [place], [place], [place] [phone] Social History Tobacco Use Types Packs/Day Years [...] Burkett MD [facility] [address] [place], [place] [address] (Wo rk) 11/25/2022 Office Visit Dermatology Kole Mccain MD [address] [facility] DERMATOLOGY [place], [place] [address] (Wo rk) documented as of this encounter Procedures Procedure Name Priority Date/Time Associated Diagnosis Comme nts ECHO SCAN (SCAN) 11/23/2019 12:00 AM Resu lts for this EDT procedure are i n the results section. documented in this encounter Results SCAN DOC: ECHO (11/23/2019 12:00 AM EDT) Narrative 11/23/2019 12:00 AM EDT This result has an attachment that is no t available. Ordered by an unspecified provider. Scanning Provider MEDIA MGR SCAN EXT ORDR/RSLT documented in this encounter Visit Diagnoses Diagnosis Dyspnea, unspecified type documented in this encounter Care Teams Computer Numerical Control Programmer Relationship Specialty Start Date End Date Quin Rojas MD PCP - General 04/03/[address] [place], [place] [address] documented as of this encounter
--- OUTSIDE RECORDS SUMMARY | 2022-03-08 01:56 | XMS_ITS | Encounter Summary ---
:1945 Author Organization [facility] [place] [address] Care Team Providers Name Role Phone Quin Rojas MD Primary Care Provider Encounter Details Date Type Department Care Team Description 05/01/2019 Telephone Cardiology at [facility] Norman Lowery MD [place] [address] CARDIOLOGY DEPT [phone] [place], [place] [address] (Wo rk) Social History Tobacco Use Types [...] this encounter Miscellaneous Notes Telephone Encounter - Norman Lowery MD - 05/01/2019 9:38 AM EST 73 year old woman, recently discharged (04/29/19) after admission for unstable angina, found to havenon-obstructive coronary artery disease and discharged on ranolazine. Since discharge, she has been in and out of [facility] ED for BP issues, shortness of breath palpitations, weakness and lightheadedne ss/shakiness. She says her metoprolol was also changed to acebutalol recently. She has three relatively new medications: ticagrelor (which was changed from clopidogrel), acetbutalol and ranolazine. Shethinks one or more of these medications may be worsening her symptoms. She is wondering if she can dose reduce or change or stop any of these medications. I emphasized that she absolutely needs to continue ticagrelor 90mg BID given recent PCI in 02/2019. She understands this and agrees she will continue. She is planning on asking Dr. Burkett whether she can go back to clopidogrel at the next visit. I advised stopping ranolazine to see if her symptoms improve as she has been feeling worse since starting it this past week. She will try this. Advised continuing acebutalol for now so that we are changing one medication at a time. I will notify Dr. Burkett of this phone call. She has an appt with Dr. Burkett at [place] on 06/22/2019. documented in this encounter Plan of Treatment Upcoming Encounters Date Type Specialty Care Team Description 09/02/2022 Office Visit Cardiology Patrice Burkett MD [facility] [address] [place] [address] (Wo rk) 11/25/2022 Office Visit Dermatology Kole Mccain MD [address] [place] [address] DERMATOLOGY [place], [place] [address] (Wo rk) documented as of this encounter Visit Diagnoses Not on filedocumented in this encounter Care Teams Produce Team Member Relationship Specialty Start Date End Date Quin Rojas MD PCP - General 04/03/[address] [place] [address] documented as of this encounter
--- OUTSIDE RECORDS SUMMARY | 2022-03-08 01:56 | XMS_ITS | Encounter Summary ---
:1945 [place] [address] Care Team Providers Name Role Phone Quin Rojas MD Primary Care Provider Encounter Details Date Type Department Care Team Description 11/08/2019 Abstract Cardiology at [facility] Patrice Burkett MD [address] [place] [address] [place] [address] [place] [address] [phone] (Wo rk) Social History Tobacco Use Types [...] 09/02/2022 Office Visit Cardiology Patrice Burkett MD [facility] Dr [place], [place] [address] (Wo rk) 11/25/2022 Office Visit Dermatology Kole Mccain MD [address] [facility] [address] DERMATOLOGY [place], [place] [address] (Wo rk) documented as of this encounter Visit Diagnoses Not on filedocumented in this encounter Care Teams Scaling Machine Operator Relationship Specialty Start Date End Date Quin Rojas MD PCP - General 04/03/[address] [place] [address] documented as of this encounter
--- OUTSIDE RECORDS SUMMARY | 2022-03-08 01:56 | XMS_ITS | Encounter Summary ---
:1945 [place] [address] Care Team Providers Name Role Phone Quin Rojas MD Primary Care Provider Encounter Details Date Type Department Care Team Description 08/09/2019 Telephone Cardiology at [facility] Patrice Burkett MD [address] [place] [address] [place] [address] [place] [address] [phone] (Wo rk) Social History Tobacco Use Types [...] this encounter Miscellaneous Notes Telephone Encounter - Patrice Burkett MD - 08/09/2019 2:27 PM EDT RTC Patient had been feeling better on fludrocortisone (not cortisol deficient per stim test). However, this AM redeveloped symptoms of profound weakness after coming out of the bathroom prior to discharge After excellent discussion with Dr Bridges, we arrived at the possibility of vasoinhibitory syndrome. Can consider conservative dose of midodrine in the AM, which is the timing at which she gets the most symptoms Telephone Encounter - Isa Morales - 08/09/2019 1:[address] Bridges would like a call back at [phone] documented in this encounter Plan of Treatment Upcoming Encounters Date Type Specialty Care Team Description 09/02/2022 Office Visit Cardiology Patrice Burkett MD [facility] [address] [place], [place] [address] (Wo rk) 11/25/2022 Office Visit Dermatology Kole Mccain MD [address] [place] [address] DERMATOLOGY [place], [place] [address] (Wo rk) documented as of this encounter Visit Diagnoses Not on filedocumented in this encounter Care Teams Binding Nicker Relationship Specialty Start Date End Date Quin Rojas MD PCP - General 04/03/[address] [place] [address] documented as of this encounter
--- OUTSIDE RECORDS SUMMARY | 2022-03-08 01:56 | XMS_ITS | Encounter Summary ---
:1945 [place] [address] Care Team Providers Name Role Phone Quin Rojas MD Primary Care Provider Encounter Details Date Type Department Care Team Description 11/25/2019 Telephone Cardiology at [facility] PalPatrice MD [address] [place] [address] [place] [address] [place] [address] [phone] (Wo rk) Social History Tobacco Use Types [...] Notes Telephone Encounter - Arlene Bills - 11/29/2019 10:41 AM EDT appt scheduled 01/25/2020 11:00 am Left message for Patient Telephone Encounter - Niki Kimball, RN - 11/29/2019 8:24 AM EDT Message delivered to Albina on mobile.. She reports she has been feeling good and her blood pressure has been consistent, so has the pulse. Albina does not have a future appointment. Will check on when that will happen and have budget engineer Ally call Albina back. Telephone Encounter - Isa Morales - 11/26/2019 12:01 PM EDT Patient called for results of echo. Her telephone is down so please call her on her cell @ [phone] Telephone Encounter - Niki Kimball RN - 11/25/2019 12:10 PM EDT ----- Message from Patrice Burkett MD sent at 11/23/2019 5:30 PM EDT ----- Unremarkable echocardiogram documented in this encounter Plan of Treatment Upcoming Encounters Date Type Specialty Care Team Description 09/02/2022 Office Visit Cardiology Patrice Burkett MD [facility] Medical [facility] Dr [place], [place] [address] (Wo rk) 11/25/2022 Office Visit Dermatology Kole Mccain MD [address] [facility] DERMATOLOGY [place], [place] [address] (Wo rk) documented as of this encounter Visit Diagnoses Not on filedocumented in this encounter Care Teams Director Perioperative Relationship Specialty Start Date End Date Quin Rojas MD PCP - General 04/03/[address] [place] [address] documented as of this encounter
--- OUTSIDE RECORDS SUMMARY | 2022-03-08 01:56 | XMS_ITS | Encounter Summary ---
:1945 [place] [address] Care Team Providers Name Role Phone Quin Rojas MD Primary Care Provider Reason for Visit Reason Onset Date Comments Medication Refill 05/10/2019 Encounter Details Date Type Department Care Team Description 05/10/2019 Telephone Cardiology at [facility] Patrice Burkett MD Medication Refill [address] [facility] [place] [address] [place] [address] (Wo rk) Social History Tobacco Use Types [...] Telephone Encounter - Niki Kimball RN - 05/10/2019 8:31 AM EST Auto request from pharmacy to refill isosorbide. Medication is NOT on current regime. Refill not authorized documented in this encounter Plan of Treatment Upcoming Encounters Date Type Specialty Care Team Description 09/02/2022 Office Visit Cardiology Patrice Burkett MD [facility] er [place], [place] [address] (Wo rk) 11/25/2022 Office Visit Dermatology Kole Mccain MD [address] [place] [address] DERMATOLOGY [place], [place] [address] (Wo rk) documented as of this encounter Visit Diagnoses Not on filedocumented in this encounter Care Teams Edge Bander Operator Relationship Specialty Start Date End Date Quin Rojas MD PCP - General 04/03/[address] [place] [address] documented as of this encounter
--- OUTSIDE RECORDS SUMMARY | 2022-03-08 01:56 | XMS_ITS | Encounter Summary ---
:1945 [place] [address] Care Team Providers Name Role Phone Quin Rojas MD Primary Care Provider Encounter Details Date Type Department Care Team Description 10/27/2019 [facility] [address] [place] [address] [place] [address] [place] [address] [phone] (Wo rk) Social History Tobacco Use Types [...] Telephone Encounter - Niki Kimball RN - 10/27/2019 9:06 AM EDT Before calling the patient back this nurse record review from Dr. Jenkins's October 19 progress note: recommended 'staying the course' with her current therapy. Given that she feels reasonably well at present and the metoprolol is working for her, she is amenable to the idea of watchful waiting, on metoprolol and remaining vigilant for change in symptoms. Recommendations / Plan A) No changes to current medicines B) She will remain vigilant for a change in symptoms C) No routine follow up arranged in the EP clinic but she knows how to contact me for questions or concerns ??TOBY JENKINS MD Called to patient and requested more information about the low pulse she is reporting. She says the palpitations happen every day and she does her best to ignore them. She does not like that she is weak and low energy when she is outside doing gardening with her . She is not reporting chest pain, shortness of breathe, dizziness, or syncope. She reviewed her notes which were not organized in date order. 8 am Today: 134/65 41 8 am October 25: 138/62 48 4 pm October 25: 173/106 53 (she says she had been resting and not exerting herself) unspec date: unspec date: 42 Specific question: is your pulse ever 60 or greater? Yes 10:15 am October 24: 141/74 70 I responded to the previous suggestion that the metoprolol should be increased per a recent provider- this is not evident in Dr. Jenkins's note. Instructions: 1. She should not increase or change her medication doses. 2. Regarding metoprolol - if she took a higher dose, her heart rate would likely decrease even more.. 3. Reassurance given that the blood pressure readings reported are mostly in a safe range. 4. It is appropriate to note the pulse less than 60 for multiple days. Note: weakness and low energyare only symptoms reported. Cc: Dr. Burkett Telephone Encounter - Isa Morales - 10/27/2019 8:55 AM EDT Patient called because her pulse rate has been down between 40 to 42. Last provider she saw here said that he metoprolol might need to be increased. She will be leaving by noon today. Please call her back at [phone]. documented in this encounter Plan of Treatment Upcoming Encounters Date Type Specialty Care Team Description 09/02/2022 Office Visit Cardiology Patrice Burkett MD [facility] [address] [place], [place] [address] (Wo rk) 11/25/2022 Office Visit Dermatology Kole Mccain MD [address] [facility] DERMATOLOGY [place], [place] [address] (Wo rk) documented as of this encounter Visit Diagnoses Not on filedocumented in this encounter Care Teams Color Dipper Relationship Specialty Start Date End Date Quin Rojas MD PCP - General 04/03/[address] [place] [address] documented as of this encounter
--- OUTSIDE RECORDS SUMMARY | 2022-03-08 01:56 | XMS_ITS | Encounter Summary ---
:1945 Author Organization [facility] [place] [address] Care Team Providers Name Role Phone Quin Rojas MD Primary Care Provider Encounter Details Date Type Department Care Team Description 08/13/2019 Telephone Cardiology at [facility] Patrice Burkett MD [facility] [place] [address] CARDIOLOGY DEPT [phone] [place], [place] [address] (Wo rk) Social History Tobacco [...] Notes Telephone Encounter - Arlene Bills - 08/13/2019 9:34 AM EDT Patient confused about what she is to take for medications. # [phone] documented in this encounter Plan of Treatment Upcoming Encounters Date Type Specialty Care Team Description 09/02/2022 Office Visit Cardiology Patrice Burkett MD [facility] Dr [place], [place] [address] (Wo rk) 11/25/2022 Office Visit Dermatology Kole Mccain MD [address] [place] [address] DERMATOLOGY [place], [place] [address] (Wo rk) documented as of this encounter Visit Diagnoses Not on filedocumented in this encounter Care Teams Renewable Energy Trader Relationship Specialty Start Date End Date Quin Rojas MD PCP - General 04/03/[address] [place] [address] documented as of this encounter
--- OUTSIDE RECORDS SUMMARY | 2022-03-08 01:56 | XMS_ITS | Encounter Summary ---
:1945 Author Organization [facility] Address [address] [place] [address] Care Team Providers Name Role Phone Quin Rojas MD Primary Care Provider Reason for Visit Reason Comments Establish Care Palpitations Hypertension Coronary Artery Disease Consultation (Routine) - Closed Specialty Diagnoses / Referred By Referred To Procedures Contact Contact Electrophysiology / Diagnoses Palpitations Dr Jenkins at [place]. Indication: symptomatic VE/SVE Patrice Burkett Sangha, Rajbir S, Cardiology MD JIMENEZ [facility] [place] [address] [place] [address] CARDIOLOGY DEPT. Phone: [place] [address] Phone: Fax: Referral ID Status Reason Start Date Expiration Date Visits V isits Requested Authorized [id number] Closed Consult, 08/03/2019 08/02/2020 1 1 Test & Treat Encounter Details Date Type Department Care Team Description 10/20/2019 Office Visit Cardiology at [facility] Kirk Jenkins MD Palpitations [address] [place] [address] CARDIOLOGY DEPT. [phone] [place] [address] (Wo rk) Social History Tobacco Use Types [...] Sign Reading Time Taken Comments Blood Pressure 131/75 10/20/2019 1:32 PM EDT Pulse 83 10/20/2019 1:32 PM EDT Temperature - - Respiratory Rate - - Oxygen Saturation - - Inhaled Oxygen Concentration - - Weight 67.6 kg (149 lb) 10/20/2019 1:20 PM EDT Height 154.9 cm (5' 1) 10/20/2019 1:20 PM EDT Body Mass Index 28.15 10/20/2019 1:20 PM EDT documented in this encounter Progress Notes Kirk Jenkins MD - 10/20/2019 1:20 PM EDT Images from the original note were not included. Section of Cardiology/Cardiac Electrophysiology Clinical Cardiac Electrophysiology Consult Patient ID Albina Thompson 1945 [id number] Albina Thompson is referred to the EP clinic by Dr Burkett Chief Complaint Palpitations History This is a 74 y.o. female following up/being seen in clinic for palpitations. The history is a little difficult to clarify and there appear to be several symptom issues that may be related. From the perspective of palpitations and 'chest pressure' she has had an extensive work up for this in the past. A brief summary of her evaluations recently : Holter 08/2012 - no significant arrhythmias, chest tightness during sinus rhythm, no AF or SVT Holter 03/2019 - no significant arrhythmias, symptoms correlate with sinus rhythm, occasionally withatrial premature beats Zio 07/2019 - normal sinus rhythm, 2.9% PACs, 1% PVC;s, brief non sustained SVT episodes Nuclear Stress test 01/2018 - Stage II Demetrius, 7 Mets, normal stress and rest nuclear images Echocardiogram 01/2019 - normal LVEF 61%, no wall motion abnormalities, mild LAE Echo 02/2019 - Normal LVEF 72%, mildly dilated LA Nuclear stress - 04/2019 - normal LVEF 73%, no wall motion abnormalities, 'mild distal/anterior apexischemia' Cardiac Cath 02/2019 - LM normal, LAD 70% proximal, 50% ostial D1, 70% Ostial D2, LCx 80% proximal OM!, RCA 30% Cardaic Cath 02/2019 - Stent to proximal LAD, Mid LAD, Ostial D2, LCx, Om1 Cardiac Cath 05/2019 - LM normal, patent stent, Lcx Patent stents She indicates that she has had palpitations/dizziness for several years. There has never been syncope, although at times she has been lightheaded. She does find it difficult to distinguish from vertigohowever. For some time she was considered to have orthostatic hypotension, and was taking fludrocortisone with apparently good effect, but she indicates that this caused side effects for her. The palpitations and skipped beats sometimes co-incide with chest pressure and she has had several evaluationsfor presumed coronary ischemia. From the perspective of her arrhythmia/palpitations, most recently atrial of sectral for premature beats/PVCs was attempted from about March of 2019 until April of 2019, but she indicates that she 'felt awful' taking this. More recently she was switched to metoprolol and finds that her symptom burden is significantly improved with this. 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 No chest pain No heart failure symptoms Problem List Patient Active Problem List Diagnosis ??? Orthostatic hypotension Diagnosed 07/2019 [facility]. Started on florinef /midodrine ??? Palpitations 2013: negative Holter 03/2019: There [...] ??? Essential hypertension ??? Coronary atherosclerosis of [place] coronary artery 2005: 2 stents to mid LAD and stent to osteal D2 (bifurcation lesion) at [facility] 01/2018- ST II, HR 126, BP 203/72, CP, 1 mm inf and lat ST depressions, normal perfusion and wall notion Norvasc led to diarrhea, Imdur to dizziness/hypotension Cardiac Catheterization: (02/2019) Co dominance Access: 6F RRA Indication: CCS III angina LVEDP 8 Artery Lesion Intervention LM nl LAD p 70 m 70 (ISR) Os D2 70 3.5 x 15 Sod 2.75 x 12 Carter POBA --> 45% residual LCx Mid 85 prox OM1 80 2.75 x 24 Promus 2.5 x 16 Promus RCA Cath 04/2019: without new disease ??? Asthma ??? Hyperlipidemia ??? Posterior tibial tendon dysfunction ??? Ocular rosacea Review of Systems Review of Systems Constitution: Positive for malaise/fatigue. Negative for weight gain and weight loss. Cardiovascular: Positive for dyspnea on exertion and palpitations. Meds Current Outpatient Medications Medication Sig Dispense Refill ??? metoprolol succinate XL (Toprol-XL) 50 mg Tablet Sustained Release 24 hr TK 1 T PO D ??? clopidogreL (Plavix) 75 mg Tablet Take 1 tablet by mouth daily. 90 tablet 3 ??? rosuvastatin (Crestor) 5 mg Tablet Take 1 tablet by mouth nightly. 90 tablet 3 ??? cyanocobalamin, Vitamin B-12, (Vitamin B-12) 1,000 mcg Tablet Take 1,000 mcg by mouth daily. ??? nitroGLYcerin (NITROSTAT) 0.4 mg Tablet, Sublingual Place 1 tablet under the tongue every 5 minutes as needed for Chest pain (maximum 3 per day). 25 tablet 3 ??? acetaminophen (TYLENOL) 500 mg Tablet Take 1,000 mg by mouth every 6 hours as needed for Pain. ??? VENTOLIN HFA 90 mcg/actuation HFA Aerosol Inhaler Inhale 2 puffs into the lungs 2 times daily asneeded. 1 ??? vit A/C/E ac/ZnOx/cupric oxide (EYE VITAMIN AND MINERALS ORAL) Take 1 capsule by mouth daily. ??? fluticasone (FLONASE) 50 mcg/actuation [place], Suspension 2 sprays by Each Nare route [...] PO, Once daily No current facility-administered medications for this visit. Social History Social History Socioeconomic History ??? Marital status: Spouse name: None ??? Number of children: 6 ??? Years of education: None ??? Highest education level: None Occupational History ??? 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 Financial resource strain: None ??? Food insecurity Worry: None Inability: None ??? Transportation needs Medical: None Non-medical: None Tobacco Use ??? Smoking status: Never Smoker ??? Smokeless tobacco: Never Used Substance and Sexual Activity ??? Alcohol use: Yes Frequency: Monthly or less Drinks per session: 1 or 2 Binge frequency: Never Comment: rare at a holiday ??? Drug use: No ??? Sexual activity: None Lifestyle ??? Physical activity Days per week: None Minutes per session: None ??? Stress: None Relationships ??? Social connections Talks on phone: None Gets together: None Attends jainism service: None Active member of club or organization: None Attends meetings of clubs or organizations: None Relationship status: None ??? Intimate partner violence Fear of current or ex partner: None Emotionally abused: None Physically abused: None Forced sexual activity: None Other Topics Concern ??? None Social History Narrative Lives with in [place], [place]. Has 6 children (2 sets of twins-one fraternal and one set identical). 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 Family History Family History Problem Relation Age of Onset ??? Hypertension Mother ??? Asthma Mother ??? Hypertension Father ??? Heart Disease Father ??? Hyperlipidemia Father ??? Myocardial Infarction Father PR at age 40 and at age 60 ??? Heart Disease Sister ??? Heart Disease Brother PR at 48 ??? Hypertension Brother ??? Hypertension Maternal Grandfather ??? Heart Disease Maternal Grandfather ??? Hyperlipidemia Maternal Grandfather ??? Heart Disease Paternal Grandmother ??? Hypertension Paternal Grandfather ??? Heart Disease Paternal Grandfather ??? Hyperlipidemia Paternal Grandfather ??? Cancer Neg Hx Exam Most Recent Vitals: 10/20/19 1332 BP: 131/75 Pulse: 83 Physical Exam Constitutional: She is oriented to person, place, and time. She appears well- developed. No distress. Body mass index is 28.15 kg/m??. HENT: Mouth/Throat: No oropharyngeal exudate. Eyes: No scleral icterus. Neck: No JVD present. No tracheal deviation present. No thyromegaly present. Cardiovascular: Normal rate. Exam reveals no gallop. No murmur heard. Pulmonary/Chest: Effort normal. Neurological: She is alert and oriented to person, place, and time. Skin: Skin is warm and dry. I have personally reviewed the ECG: Sinus rhythm 75 bpm, ID interval 160ms, QRS 100ms, QT 360ms Impression Albina Thompson is seen in the EP clinic for consultative evaluation. It is not clear to me if her symptoms are related to non sustained arrhythmias, premature beats, coronary disease or other issues, but she does appear to be feeling better on her current dose of metoprolol. It appears that her history has been challenging at times and some of her symptom descriptions overlap. From the perspective of arrhythmias in particular, she has had a number of ambulatory monitors and there has not been a consistent association of symptoms with arrhythmias. Her most recent Zio patch showed that her PVC burden was < 1%. Her baseline ECG looks normal. She also has an apparent history of orthostatic hypotension and has been on fludrocortisone for sometime, although this is been discontinued-she indicates she had side effects related to this. In any event, her blood pressure appears to be reasonable even on metoprolol. Given that she is doing well at present (and with her PVC burden being so low on her most recent ambulatory monitor); I have recommended 'staying the course' with her current therapy. I do not see a clear substrate for either anti- arrhythmic therapy nor ablation. We discussed that her most recent ambulatory monitor showed a relatively low burden of ectopic beats, and the benefit /risk of antiarrhythmic medication may be low. Additionally, her burden of ventricular ectopic beats is so low, but it would be difficult to meaningfully map for an ablation procedure. Given that she feels reasonably well at [...] to contact me for questions or concerns KIRK JENKINS MD Cardiac Electrophysiology [facility] [place] T: [phone] F: [phone] minutes of this 40 minute encounter were spent in counselling, as described above Cc: MD Lance Caldwell MD documented in this encounter Plan of Treatment Upcoming Encounters Date Type Specialty Care Team Description 09/02/2022 Office Visit Cardiology Patrice Burkett MD [facility] [address] [place], [place] [address] (Wo rk) 11/25/2022 Office Visit Dermatology Kole Mccain MD [address] [facility] DERMATOLOGY [place], [place] [address] (Wo rk) documented as of this encounter Visit Diagnoses Diagnosis Palpitations documented in this encounter Care Teams Roofing Supervisor Relationship Specialty Start Date End Date Quin Rojas MD PCP - General 04/03/[address] [place] [address] documented as of this encounter
--- OUTSIDE RECORDS SUMMARY | 2022-03-08 01:56 | XMS_ITS | Encounter Summary ---
:[address] [place] [address] Care Team Providers Name Role Phone Quin Rojas MD Primary Care Provider Encounter Details Date Type Department Care Team Description 05/20/2019 Telephone Cardiology at Patrice Taveras MD [address] [place] [address] [place] [address] [place] [address] [phone] (Wo rk) Social History Tobacco Use Types [...] Telephone Encounter - Niki Kimball RN - 05/21/2019 8:39 AM EST Called patient with updated instructions from Dr. Burkett. Today take the (loading) dose. Take 3 plavix tablets this morning. Tonight and thereafter take 1 plavix tablet every day Patient stated she understands the instructions but I am very sensitive...what if I have a reaction? She has had doses for 3 nights now, without adverse side effects. No adverse outcome is expected. If she does not feel well, call here or on weekend please speak to steam press operator onl call. Telephone Encounter - Niki Kimball RN - 05/20/2019 5:00 PM EST Called patient back at 4:50 pm. I reviewed the Friday cardiology visit note remarks while we spoke. Dr. Burkett noted to stop Ticagrelol after that day's dose on May 17. On May 18, she was to take Plavix (clopidogrel) 300 mg (=4tablets), then take 75 mg thereafter. What the patient actually took: May 17 Ticagrelor (last dose) May 18 Plavix 75 mg May 19 Plavix 75 mg May 20 Plavix 75 mg (planned tonight) Patient is upset that she failed to follow the instructions for the large starting dose of Pradaxa. She is not experiencing unusual signs and symptoms today. Reassure her to continue the plan: Plavix 75 mg every day And to put away or properly discard the stopped Brilinta (Ticagrelol). Her usual managemnt of discontinued meds: X on the label, store out of sight all stopped medications in a bag in case it is re-ordered. Also on cardiology note on 05/17: she will stay on sectral 200 mg BID because she is averse to increasing any medications. I checked to see if she is taking sectral/acebutol. She verified she is taking it 200 mg twice a day. No further follow up on this medication error by wrong dose/lesser than in this patient self-administration unless symptoms or problems arise. Notification to: Dr. Patrice Burkett Telephone Encounter - Isa Morales Tadeo - 05/20/2019 4:20 PM EST Patient was in for an appointment with Dr Burkett on Friday. She said she was switched from brelita to plavix. She was told to take four plavix each day. She hadonly been taking one of the brelita so forgot and just took one of the plavix as well. She would like to know if that is a problem and if she needs to make up for it. Please call her back at [phone]. documented in this encounter Plan of Treatment Upcoming Encounters Date Type Specialty Care Team Description 09/02/2022 Office Visit Cardiology Patrice Burkett MD [facility] [address] [place], [place] [address] (Wo rk) 11/25/2022 Office Visit Dermatology Kole Mccain MD [address] [place] [address] DERMATOLOGY [place], [place] [address] (Wo rk) documented as of this encounter Visit Diagnoses Not on filedocumented in this encounter Care Teams Ad Terminal Makeup Operator Relationship Specialty Start Date End Date Quin Rojas MD PCP - General 04/03/[address] [place], [place] [address] documented as of this encounter
--- OUTSIDE RECORDS SUMMARY | 2022-03-08 01:56 | XMS_ITS | Encounter Summary ---
:1945 Author Organization [place] [address] Care Team Providers Name Role Phone Quin Rojas MD Primary Care Provider Reason for Visit Reason Onset Date Comments Medication Refill 06/22/2019 Encounter Details Date Type Department Care Team Description 06/22/2019 Refill Cardiology at [facility] Patrice Burkett MD Medication Refill [address] [place] [address] [place] [address] [phone] (Wo rk) Social History Tobacco Use Types [...] Patrice Burkett MD [facility] [address] [place] [address] (Wo rk) 11/25/2022 Office Visit Dermatology Kole Mccain MD [address] [facility] DERMATOLOGY [place], [place] [address] (Wo rk) documented as of this encounter Visit Diagnoses Diagnosis Palpitations documented in this encounter Care Teams Reject Opener And Filler Relationship Specialty Start Date End Date uQin Rojas MD PCP - General 04/03/[address] [place], [place] [address] documented as of this encounter
--- OUTSIDE RECORDS SUMMARY | 2022-03-08 01:56 | XMS_ITS | Encounter Summary ---
:1945 [place] [address] Care Team Providers Name Role Phone Quin Rojas MD Primary Care Provider Encounter Details Date Type Department Care Team Description 05/25/2019 Telephone Cardiology at [facility] PalPatrice MD [address] [place] [address] [place] [address] [place] [address] [phone] (Wo rk) Social History Tobacco Use Types [...] Telephone Encounter - Niki Kimball RN - 05/25/2019 10:05 AM EST Aspirin confirmed as 81 mg one per day. Acebutulol was (already done yesterday) sent to [facility] pharmacy. Telephone Encounter - Isa Morales Tadeo - 05/25/2019 9:26 AM EST Patient called because she has been taking acebutolol. However, she only has four left and no refills. She is not sure she is to continue to take it. If so: 200 mg twice daily [facility]. Also, she would like to know if she should be taking two 81 mg aspirin each day. At this point she is only taking one. Please call her back at [phone]. documented in this encounter Plan of Treatment Upcoming Encounters Date Type Specialty Care Team Description 09/02/2022 Office Visit Cardiology Patrice Burkett MD [facility] [address] [place] [address] (Wo rk) 11/25/2022 Office Visit Dermatology Kole Mccain MD [address] [facility] DERMATOLOGY [place], [place] [address] (Wo rk) documented as of this encounter Visit Diagnoses Diagnosis Palpitations documented in this encounter Care Teams Homicide Detective Relationship Specialty Start Date End Date Quin Rojas MD PCP - General 04/03/[address] [place] [address] documented as of this encounter
--- OUTSIDE RECORDS SUMMARY | 2022-03-08 01:56 | XMS_ITS | Encounter Summary ---
:1945 Author Organization [facility] [place] [address] Care Team Providers Name Role Phone Quin Rojas MD Primary Care Provider Encounter Details Date Type Department Care Team Description 08/08/2019 Telephone Endocrinology at [facility] C Karen Monae MD [facility] [place] [address] ENDOCRINOLOGY DEPT [phone] [place] [address] (Wo rk) Social History Tobacco Use Types [...] this encounter Miscellaneous Notes Telephone Encounter - Karen Monae MD - 08/08/2019 6:47 PM EDT Received call back from Dr. Bridges. 1 hour post-stimulation cortisol was 28, which is reassuring that she does not have underlying adrenal insufficiency (<18 would be consistent with inadequateresponse/adrenal insufficiency. There can be false negative co-syntropin stimulation test with acutesecondary adrenal insufficiency as prior to development of adrenal atrophy, but given long- standing dizziness low suspicion that adrenal insufficiency is cause of her orthostatic hypotension. Karen Monae PGY 5 Endocrinology, Metabolism & Diabetes Fellow Pager [phone] Telephone Encounter - Karen Monae MD - 08/08/2019 11:35 AM EDT Received call from Dr. Bridges from [facility] ?Adrenal insufficiency 74 yoa F with htn, hypothyroidism, asthma, cad s/p multiple stents presenting with 6 month history of dizziness worse in AM. +orthostatic hypotension: lying 130/65 mmHg --> 78/30 mmHg standing (HR not elevated, but on BB) She has had fatigue and palpitations, but denies any nausea, abdominal pain, or weight loss. 8 am cortisol was 6.7, ACTH pending. Co-syntropin stimulation performed, but informed lab was a send out. Dr. Bridges has started fludrocortisone for orthostatic hypotension and gave IVF. Recommended he discuss with lab as unclear why 8 am cortisol was performed at [place], but 1 hour post-stimulation cortisol needs send-out. If 1 hour post-stimulation cortisol >18, adrenal insufficiency unlikely If 1 hour post-stimulation cortisol <18, she will likely benefit from introduction of hydrocortisone for treatment of adrenal insufficiency with pending ACTH helpful in distinguishing primary vs. Secondary. Asked that Dr Bridges contact me once he has clarified with lab when 1 hour post-stim cortisol will return. Karen Monae PGY 5 Endocrinology, Metabolism & Diabetes Fellow Pager [phone] documented in this encounter Plan of Treatment Upcoming Encounters Date Type Specialty Care Team Description 09/02/2022 Office Visit Cardiology Patrice Burkett MD [facility] [address] [place] [address] (Wo rk) 11/25/2022 Office Visit Dermatology Kole Mccain MD [address] [facility] [address] DERMATOLOGY [place], [place] [address] (Wo rk) documented as of this encounter Visit Diagnoses Not on filedocumented in this encounter Care Teams Head Silverman Relationship Specialty Start Date End Date Quin Rojas MD PCP - General 04/03/[address] [place] [address] documented as of this encounter
--- OUTSIDE RECORDS SUMMARY | 2022-03-08 01:56 | XMS_ITS | Encounter Summary ---
:1945 [place] [address] Care Team Providers Name Role Phone Quin Rojas MD Primary Care Provider Encounter Details Date Type Department Care Team Description 04/27/2019 Refill Cardiology at [facility] PalPatrice MD [address] [place] [address] [place] [address] [place] [address] [phone] (Wo rk) Social History Tobacco Use Types [...] Telephone Encounter - Chito Brooks RN - 04/27/2019 2:20 PM EST Called patient and let her know, patient reports she is feeling quite a bit better now. She verbalized understanding of instructions. Telephone Encounter - Chito Brooks RN - 04/27/2019 1:22 PM EST Called patient, she reports that she had an episode this morning or feeling weak, lightheaded and felt she was 'going to pass out'. BP during this episode was 114/48 with pulse of 45, she checked it again a few minutes later and it was 101/49 (she said BP could not give pulse). She denies chest pain, did report SOB especially with activity. She reports her episode lasted about 30 minutes and is nowresolved, but fearful about having another. BP at 1:00 was 149/78 pulse of 70. Telephone Encounter - Isa Morales - 04/27/2019 11:59 AM EST Patient called because she is not feeling well at all and having trouble with her medications. Her blood pressure is all over the place and it is not reading her pulse. She said it is too low. Please call her back at [phone]. documented in this encounter Plan of Treatment Upcoming Encounters Date Type Specialty Care Team Description 09/02/2022 Office Visit Cardiology Patrice Burkett MD [facility] [address] [place], [place] [address] (Wo rk) 11/25/2022 Office Visit Dermatology Kole Mccain MD [address] [facility] DERMATOLOGY [place], [place] [address] (Wo rk) documented as of this encounter Visit Diagnoses Diagnosis Palpitations documented in this encounter Care Teams Admission Liaison Relationship Specialty Start Date End Date Quin Rojas MD PCP - General 04/03/[address] [place] [address] documented as of this encounter
--- OUTSIDE RECORDS SUMMARY | 2022-03-08 01:56 | XMS_ITS | Encounter Summary ---
:1945 Author Organization [facility] Address [facility] [address] [place] [address] Care Team Providers Name Role Phone Quin Rojas MD Primary Care Provider Reason for Referral Consultation (Routine) - Closed Specialty Diagnoses / Referred By Referred To Procedures Contact Contact Electrophysiology / Diagnoses Palpitations Dr Jenkins at [place]. Indication: symptomatic VE/SVE Patrice Burkett Sangha, Rajbir S, Cardiology MD JIMENEZ [facility] [place] [address] CARDIOLOGY DEPT. Phone: [place] [address] Phone: Fax: Referral ID Status Reason Start Date Expiration Date Visits V isits Requested Authorized [id number] Closed Consult, 08/03/2019 08/02/2020 1 1 Test & Treat Encounter Details Date Type Department Care Team Description 08/03/2019 Orders Only Cardiology at [facility] Patrice Burkett MD Palpitations [address] [place] [address] [place] [address] [phone] (Wo rk) Social History Tobacco Use Types [...] 09/02/2022 Office Visit Cardiology Patrice Burkett MD [facility] Medical [facility] [address] [place] [address] (Wo rk) 11/25/2022 Office Visit Dermatology Kole Mccain MD [address] [facility] DERMATOLOGY [place], [place] [address] (Wo rk) Scheduled Referrals Name Type Priority Associated Order Schedule Diagnoses Referral to Cardiac Outpatient Routine Palpitations Ordered: Electrophysiology Referral 08/03/2019 documented as of this encounter Visit Diagnoses Diagnosis Palpitations documented in this encounter Care Teams Sdv Pilot/Navigator/Dds Operator Relationship Specialty Start Date End Date Quin Rojas MD PCP - General 04/03/[address] [place] [address] documented as of this encounter
--- OUTSIDE RECORDS SUMMARY | 2022-03-08 01:56 | XMS_ITS | Encounter Summary ---
:1945 [place] [address] Care Team Providers Name Role Phone Quin Rojas MD Primary Care Provider Encounter Details Date Type Department Care Team Description 11/05/2019 Telephone Cardiology at [facility] Patrice Burkett MD [address] [place] [address] [place] [address] [place] [address] [phone] (Wo rk) Social History Tobacco Use Types [...] Telephone Encounter - Niki Kimball RN - 11/08/2019 1:48 PM EDT Quin Valdez sent a fax of notes note and is non-urgently requesting to speak with Dr. Burkett. Her callback number is [phone] or [phone] The documents are scanned. Highlights from her hand-written remarks: pulses, by her documentation, were into low 40s The metoprolol was decreased because of low pulses 40s, 50s She was to start at (metoprolol succinate) 12.5 mg and call me with the readings Acknowledgement that Albina often makes mistake between written instructions and what she thinks she heard. I repeat often 2-[address] Valdez's staff did not recommend the nitroglycerin Taking the nitroglycerin was Albina's idea On November 04 she was instructed to increase (metoprololol succinate) to 25 mg daily Albina getting increasingly confused Attachment November 04, 2019 progress note from OV with Dr. Valdez.. I can update the medications list based on this documentation she has forwarded. Telephone Encounter - Niki Kimball RN - 11/05/2019 1:59 PM EDT 1:40 pm Call back to Albina who is home. The conversation becomes circular, but this is the timelineof what has happened, when it happened, why, and what is the situation now. Situation: She does not have confidence to follow the instructions on her newest prescription of metoprolol succinate 25 mg take one HALF tablet once a day as directed on the label, as prescribed by Dr. Valdez. Background: November 03 Albina had a follow up appointment with Dr. Valdez. Albina asked the practice to copy notes to this office. Dr. Miranda sent a new order to [facility] pharmacy for metoprolol succinate 25 mg tablets take one HALF tablet once a day (dose is 12.5 mg) Albina picked up that prescription Albina put away the previous prescription bottle of metoprolol succinate 50 mg daily Albina took from the new prescription bottle last evening metoprolol succinate 25 mg tablets take one HALF tablet (dose is 12.5 mg) November 04 Albina took from the new prescription bottle this morning metoprolol succinate 25 mg tablets take one HALF tablet (dose is 12.5 mg) Albina has also called Dr. Valdez's office this morning. That conversation was about at least twoissues: (1) how is Albina to take her new prescription? Albina thinks and keeps saying aloud she is to take metoprolol succinate 25 mg one HALF tablet TWICE a day. (2) Albina felt poorly- weak, shaky, chest pressure, at 10 am her blood pressure 190/80 and pulse 66 in one arm and 152/82 and pulse 83 a few minutes later in the other arm. During call is is probable that the staff suggested she try a nitroglycerin as prescribed. Outcome of the call to Dr. Valdez - (1) the staff person she spoke with is contacting Dr. Valdez to clarify the instructions on her newest prescription of metoprolol succinate 25 mg take one HALFtablet once a day as directed on the label. (2) Albina took one nitroglycerin and felt relief from the chest pressure. Albina called this office at 11:10 am. She gave the documented message to Isa Morales. I called Albina back at 1:40 pm. It took 15 minutes of circular conversation to elicit from Albina the above information. It includedher stating over and over she is to take metoprolol succinate 25 mg one HALF tablet TWICE a day and that Isa Morales told her to take nitroglycerin; I clarified - Isa Morales did not instruct her to take any medications. As for her new medication, I cannot speak to what Dr. Valdez intended. The best plan: do as instructed when Dr. Valdez's staff calls back. If no call back before the end of business today, take the new prescription every morning exactly as it is printed on the label. Analysis: 1. This nurse has noted it is a remarkable decrease in metoprolol succinate 50 mg daily to 12.5 mg daily. Until clarification from Dr. Valdez on what the intention/indication for the medication change was, and specify the dose and interval to be taken, patient should take medication exactly as printed on the label. 2. Albina does not need to go to the ER. Regarding who told Albina to go to the ER: Albina now thinks Dr. Valdez told her yesterday during the appointment that if her symptoms warrant it, go to the ER. Right now, Albina feels that she does not need to go to the ER. 3. Albina does not have chest pressure or pain right now. Regarding chest pain or pressure: The use of nitroglycerin this morning gave her symptom relief. Instructed patient: This is good. If chest pain or pressure happens again, try nitroglycerin again. The label instructions are for taking for chestpain as needed, 5 minutes apart, up to 3 doses. Plan: 1. This nurse will await the requested records from Dr. Valdez's office. The medication profile for this patient will be updated at that time. 2. This nurse will not be calling Albina back because this will add confusion to any instructions from Dr. Valdez. Albina repeated this back to me, understands that I will not be calling her back. 3. The patient will await the call back from and follow instructions as given. Albina does not need to call this office back. 4. Cc to Dr. Burkett Telephone Encounter - Isa Morales - 11/05/2019 11:18 AM EDT Patient called because she is having pulse rate problems. She said she is weak,shaky, and has chest pressure. Her pulse is about 94 with bp 190/80, 148/87. Her pulse keeps going up and down. She saw her pcp yesterday and I have called for records. They did recommend she go to the ER. Please call her back @ [phone]. documented in this encounter Plan of Treatment Upcoming Encounters Date Type Specialty Care Team Description 09/02/2022 Office Visit Cardiology Patrice Burkett MD [facility] er [place] [address] ([place]) 11/25/2022 Office Visit Dermatology Kole Mccain MD [address] [facility] DERMATOLOGY [place], [place] [address] ([place]) documented as of this encounter Visit Diagnoses Not on filedocumented in this encounter Care Teams Manager Multimedia Relationship Specialty Start Date End Date Quin Rojas MD PCP - General 04/03/[address] [place] [address] documented as of this encounter
--- OUTSIDE RECORDS SUMMARY | 2022-03-08 01:56 | XMS_ITS | Encounter Summary ---
:1945 [place] [address] Care Team Providers Name Role Phone Quin Rojas MD Primary Care Provider Encounter Details Date Type Department Care Team Description 10/29/2019 Telephone Cardiology at [facility] Patrice Burkett MD [address] [place] [address] [place] [address] [place] [address] [phone] (Wo rk) Social History Tobacco Use Types [...] Telephone Encounter - Niki Kimball RN - 11/01/2019 11:40 AM EDT Left VM that Dr. Burkett is ordering an echocardiogram to get more information on possible causes of the shortness of breath. Telephone Encounter - Niki Kimball RN - 11/01/2019 11:20 AM EDT On Friday late day Albina gave message to clinical laboratory secretary Arlene Bills: she walked to the mailbox and she got very winded. Telephone Encounter - Argentina Alaniz RN - 10/29/2019 11:45 AM EDT Called patient, no answer, left a message. Telephone Encounter - Arlene Bills - 10/29/2019 9:54 AM EDT Patient called this am saying Palpitations are very disturbing to her this am. Pulse was 90 and then 1/2 hr later 41 with the palpitations. She is getting very discouraged #[phone] documented in this encounter Plan of Treatment Upcoming Encounters Date Type Specialty Care Team Description 09/02/2022 Office Visit Cardiology Patrice Burkett MD [facility] Dr [place], [place] [address] ([place]o [place]k) 11/25/2022 Office Visit Dermatology Kole Mccain MD [address] [place] [address] DERMATOLOGY [place], [place] [address] ([place]o rk) documented as of this encounter Visit Diagnoses Not on filedocumented in this encounter Care Teams Director Of Primary Relationship Specialty Start Date End Date Quin Rojas MD PCP - General 04/03/[address] [place] [address] documented as of this encounter
--- OUTSIDE RECORDS SUMMARY | 2022-03-08 01:56 | XMS_ITS | Encounter Summary ---
:1945 [place] [address] Care Team Providers Name Role Phone Quin Rojas MD Primary Care Provider Encounter Details Date Type Department Care Team Description [facility]/03[facility] [address] [place] [address] [place] [address] [place] [address] [phone] (Wo rk) Social History Tobacco Use Types [...] Telephone Encounter - Niki Kimball RN - 09/03/2019 11:30 AM EDT Called patient to answer her questions. She repeated the same questions over and over, and keeps saying that metoprolol and flucortisone arethe same medication. She does not remember and restates the same thing. Blood pressure is 152/80 this morning; 190/97 at 7:50 pm 1. Advised her to take the metoprolol as directed on the label. 2. Advised her to identify the page I mailed her after she saw Dr. Burkett in the office on August 15. She searches through many, many papers at home, but cannot find the one mailed to her that should have arrived just over a week ago. She starts to read to me documents from past medical appointments and tells me that her sister came before the [id number] order and organized years of paperwork for her. As in previous telephone conversations, she is looking through a stack of many papers and she cannot determine which is the most recent, most accurate, most important. 3. Advised her to stick to ONE PAGE of medications list. If she cannot find the one I mailed to her this month, she can make a new, ONE PAGE medications list with Dr. Valdez when she makes a home visit next week. If she finds the one I mailed her, she and Dr. Valdez can edit that one with the changes, including metoprolol and fluticasone. 4. For additional questions, she should ask Dr. Valdez as she sees her weekly. Dr. Burkett and nasrin at this office do not have records spoken directions that Dr. Miranda has given her, and therefore cannot answer questions such as the ones she is asking today. Telephone Encounter - Isa Morales - 09/03/2019 10:54 AM EDT Patient called because she still does not feel well. On one visit to an ER - could not remember where/when - she was told to take fludrocortisone. So she is taking both metoprolol and fludrocortisone right now. Should she be and could this be why she does not feel well? Please call her back at [phone]. documented in this encounter Plan of Treatment Upcoming Encounters Date Type Specialty Care Team Description 09/02/2022 Office Visit Cardiology Patrice Burkett MD [facility] [address] [place], [place] [address] ([place]o rk) 11/25/2022 Office Visit Dermatology Kole Mccain MD [address] [place] [address] DERMATOLOGY [place], [place] [address] ([place]o rk) documented as of this encounter Visit Diagnoses Not on filedocumented in this encounter Care Teams Concrete Mixer Operator Helper Relationship Specialty Start Date End Date Quin Rojas MD PCP - General 04/03/[address] [place], [place] [address] documented as of this encounter
--- OUTSIDE RECORDS SUMMARY | 2022-03-08 01:56 | XMS_ITS | Encounter Summary ---
:1945 Author Organization [facility] [place] [address] Care Team Providers Name Role Phone Quin Rojas MD Primary Care Provider Reason for Visit Reason Comments Coronary Artery Disease Encounter Details Date Type Department Care Team Description 08/16/2019 TH Visit Cardiology at Patrice Burkett Hyperlipidem ia, unspecified hyperlipidemia type; (TeleHealth) Barak Piedra MD Chest pain, unspecified type; [address] [facility] [address] [facility] hypotension; [facility] Palpitations; [place] Atherosclerosi s of [place] coronary artery [place] heart without angina pectoris [id number] [phone] Social History Tobacco Use Types Packs/Day Years [...] documented as of this encounter Progress Notes Patrice Burkett MD - 08/16/2019 1:20 PM EDT CARDIOLOGY TELE VISIT NOTE, 08/16/19 The patient consented to this being a virtual visit. Patient Active Problem List Diagnosis ??? Orthostatic hypotension Diagnosed 07/2019 [facility]. Started on florinef /midodrine ??? [...] ??? Essential hypertension ??? Coronary atherosclerosis of [place] coronary artery 2005: 2 stents to mid LAD and stent to osteal D2 (bifurcation lesion) at [facility] 01/2018- ST II, HR 126, BP 203/72, CP, 1 mm inf and lat ST depressions, normal perfusion and wall notion Norvasc led to diarrhea, Imdur to dizziness/hypotension Cardiac Catheterization: (02/2019) Co dominance Access: 6F RRA Indication: CCS III angina LVEDP 8 Artery Lesion Intervention LM nl LAD p 70 m 70 (ISR) Os D2 70 3.5 x 15 Carter 2.75 x 12 Kimball POBA --> 45% residual LCx Mid 85 prox OM1 80 2.75 x 24 Promus 2.5 x 16 Promus RCA Cath 04/2019: without new disease ??? Asthma ??? Hyperlipidemia ??? Posterior tibial tendon dysfunction ??? Ocular rosacea HPI: Albina Thompson is a 74 y.o. year old female who presents on follow-up for: Chief Complaint Patient presents with ??? Coronary Artery Disease Last seen by me 05/2019, at which time ticagrelor was switched to plavix Since then, she has been having issues with morning dizziness and feeling out of it. Sectral was increased as these episodes seems to correlate with heavy heart beats, which on prior rhythm monitoring have been PACs. However, this escalated and she presented to [facility] ED. 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 She was given crystalloid, and started on florinef. Cortisol level low normal, stim test normal. The morning of planned discharge, she has another episode of orthostatic hypotension, and thus was started on midodrine in addition. Sectral was d iscontinued, since the patient did not have any improvement in palpitations with it. Since discharge, she has been doing extremely well. Her energy is much better, and she is no longer with the morning dizziness and palpitations. However, her BP has been on the high side, with SBPs 150-170s. Otherwise, reasonable activity (to include high level of outdoor chores) is without exertionalchest pain, dyspnea, presyncope. Denies LH, syncope, palpitations, orthopnea, pnd, weight gain, edema. Brief ROS: Else negative Medications (Reviewed with patient): Current Outpatient Medications: ??? rosuvastatin (Crestor) 5 mg Tablet, Take 1 tablet by mouth nightly., Disp: 90 tablet, Rfl: 3 ??? midodrine (Proamatine) 2.5 mg Tablet, Take 1 tablet by mouth every morning., Disp: 30 tablet, Rfl: 3 ??? fludrocortisone (Florinef) 0.1 mg Tablet, Take 1 tablet by mouth every morning., Disp: 30 tablet, Rfl: 3 ??? cyanocobalamin, Vitamin B-12, (Vitamin B-12) 1,000 mcg Tablet, Take 1,000 mcg by mouth daily., Disp: , Rfl: ??? famotidine (Pepcid) 40 mg Tablet, Take 40 mg by mouth daily., Disp: , Rfl: ??? Vitamin B-1 100 mg Tablet, Take 100 mg by mouth daily., Disp: , Rfl: ??? clopidogrel (PLAVIX) 75 mg Tablet, Take 1 tablet by mouth daily., Disp: 30 tablet, Rfl: 3 ??? nitroGLYcerin (NITROSTAT) 0.4 mg Tablet, Sublingual, Place 1 tablet under the tongue every 5 minutes as needed for Chest pain (maximum 3 per day)., Disp: 25 tablet, Rfl: 3 ??? acetaminophen (TYLENOL) 500 [...] , Rfl: ??? fluticasone (FLONASE) 50 mcg/actuation [place], Suspension, 2 sprays by Each Nare route [...] 75mcg, PO, Once daily, Disp: , Rfl: Objective Data: VS at home: as above Orthostatic hypotension Because of the BP, have advised decreasing midodrine from BID to QD, and to take the medication in the morning. She will avoid laying flat for ~ 4 hours after using the medication. Will be more conservative with BP goal (target 150s) - continue florinef 0.1 mg qam - decrease midodrine to 2.5 qam (from BID) Palpitations Since correction of the orthostatic hypotension, she interestingly does not have palpitations any more - agree with d/c of sectral (done inpatient) Coronary atherosclerosis of [place] coronary artery No angina per history - Anti-Thrombosis: asa 81, plavix 75. Would continue the latter x 30 months - Statin: crestor 5 (intolerant of higher) - Anti-anginals: GTN PRN RTC 6 months Patrice Burkett MD documented in this encounter Miscellaneous Notes Assessment & Plan Note - Patrice Burkett MD - 08/16/2019 11:16 AM EDT Associated Problem(s): ASCVD (arteriosclerotic cardiovascular disease) No angina per history - Anti-Thrombosis: asa 81, plavix 75. Would continue the latter x 30 months - Statin: crestor 5 (intolerant of higher) - Anti-anginals: GTN PRN Assessment & Plan Note - Patrice Burkett MD - 08/16/2019 11:15 AM EDT Associated Problem(s): Palpitations Since correction of the orthostatic hypotension, she interestingly does not have palpitations any more - agree with d/c of sectral (done inpatient) Assessment & Plan Note - Patrice Burkett MD - 08/16/2019 11:13 AM EDT Associated Problem(s): Orthostatic hypotension (Resolved 01/30/2020) Because of the BP, have advised decreasing midodrine from BID to QD, and to take the medication in the morning. She will avoid laying flat for ~ 4 hours after using the medication. Will be more conservative with BP goal (target 150s) - continue florinef 0.1 mg qam - decrease midodrine to 2.5 qam (from BID) documented in this encounter Plan of Treatment Upcoming Encounters Date Type Specialty Care Team Description 09/02/2022 Office Visit Cardiology Patrice Burkett MD [facility] er [place], [place] [address] ([place]o [place]) 11/25/2022 Office Visit Dermatology Kole Mccain MD [address] [facility] DERMATOLOGY [place], [place] [address] ([place]o [place]) documented as of this encounter Visit Diagnoses Diagnosis Hyperlipidemia, unspecified hyperlipidem ia type Chest pain, unspecified type Orthostatic hypotension Palpitations Atherosclerosis of [place] coronary arter y of [place] heart without angina pectoris documented in this encounter Care Teams Boat And Plant Utility Supervisor Relationship Specialty Start Date End Date Quin Rojas MD PCP - General 04/03/[address] [place] [address] documented as of this encounter
--- OUTSIDE RECORDS SUMMARY | 2022-03-08 01:56 | XMS_ITS | Encounter Summary ---
:1945 [place] [address] Care Team Providers Name Role Phone Quin Rojas MD Primary Care Provider Encounter Details Date Type Department Care Team Description 08/30/2019 Telephone Cardiology at [facility] Patrice Burkett MD [address] [place] [address] [place] [address] [place] [address] [phone] (Wo rk) Social History Tobacco Use Types [...] Telephone Encounter - Patrice Burkett MD - 08/30/2019 1:11 PM EDT TC to patient She has been doing better over the weekend. The palpitations have recurred, but are not terribly troublesome; she rests and they go away, without red flag symptoms. No longer taking fludrocortisone/midodrine BP well controlled, systolic 120-130s No orthostatic symptoms Plan BP record per Dr Rojas. Afterwards, I told her it was OK to take it about once weekly Reviewed risks/benefit of treatment of palpitations- at this time, continue current regimen Patrice Burkett MD documented in this encounter Plan of Treatment Upcoming Encounters Date Type Specialty Care Team Description 09/02/2022 Office Visit Cardiology Patrice Burkett MD [facility] Medical [facility] er [address] [place], [place] [address] ([place]) 11/25/2022 Office Visit Dermatology Kole Mccain MD [address] [facility] DERMATOLOGY [place], [place] [address] ([place]o rk) documented as of this encounter Visit Diagnoses Not on filedocumented in this encounter Care Teams Lodge Attendant Relationship Specialty Start Date End Date Quin Rojas MD PCP - General 04/03/[address] [place], [place] [address] documented as of this encounter
--- OUTSIDE RECORDS SUMMARY | 2022-03-08 01:56 | XMS_ITS | Encounter Summary ---
:1945 Author Organization [facility] [place] [address] Care Team Providers Name Role Phone Quin Rojas MD Primary Care Provider Reason for Visit Reason Onset Date Comments Medication Refill 08/10/2019 Encounter Details Date Type Department Care Team Description 08/10/2019 Refill Cardiology at [facility] Patrice Burkett MD Medication Refill [address] [facility] [address] [place] [address] [phone] (Wo rk) Social History Tobacco Use Types [...] MD [facility] [address] [place] [place] [address] ([place]o [place]k) 11/25/2022 Office Visit Dermatology Kole Mccain MD [address] [facility] DERMATOLOGY [place], [place] [address] (Wo rk) documented as of this encounter Visit Diagnoses Diagnosis Hyperlipidemia, unspecified hyperlipidem ia type documented in this encounter Care Teams Medical Biller Coder Relationship Specialty Start Date End Date Quin Rojas MD PCP - General 04/03/[address] [place] [address] documented as of this encounter
--- OUTSIDE RECORDS SUMMARY | 2022-03-08 01:56 | XMS_ITS | Encounter Summary ---
:1945 [place] [address] Care Team Providers Name Role Phone Quin Rojas MD Primary Care Provider Encounter Details Date Type Department Care Team Description 08/03/2019 Notes Only Cardiology at [facility] Patrice Burkett MD [address] [place] [address] [place] [address] [place] [address] [phone] (Wo rk) Social History Tobacco Use Types [...] encounter Progress Notes Patrice Burkett MD - 08/03/2019 3:37 PM EDT TC to patient to discuss symptoms She has been feeling lightheaded at times, noting a HR of 40-50 on home monitor. Ziopatch was placedby PCP, which was unremarkable, but did demonstrate normal HR range. I do not think she has actual bradycardia. She has frequent ectopy which is not captured on her homeBP cuff. Treatment hinges on ectopy suppression. Possible choices include increasing Sectral, starting AAD, or ablation of PVC. After discussion, shepreferred a referral to Dr Jenkins for consideration of ablation if possible, as she cannot live like this. I do not think she requires a pacemaker based on available history nor data Patrice Burkett MD documented in this encounter Plan of Treatment Upcoming Encounters Date Type Specialty Care Team Description 09/02/2022 Office Visit Cardiology Patrice Burkett MD [facility] er [address] [place] [address] (Wo rk) 11/25/2022 Office Visit Dermatology Kole Mccain MD [address] [facility] DERMATOLOGY [place], [place] [address] (Wo rk) documented as of this encounter Visit Diagnoses Not on filedocumented in this encounter Care Teams Class 1 Owner Operator Relationship Specialty Start Date End Date Quin Rojas MD PCP - General 04/03/[address] [place] [address] documented as of this encounter
--- OUTSIDE RECORDS SUMMARY | 2022-03-08 01:56 | XMS_ITS | Encounter Summary ---
:1945 [place] [address] Care Team Providers Name Role Phone Quin Rojas MD Primary Care Provider Encounter Details Date Type Department Care Team Description 08/13/2019 [facility] [address] [place] [address] [place] [address] [place] [address] [phone] (Wo rk) Social History Tobacco Use Types [...] documented as of this encounter Progress Notes Niki Kimball RN - 08/13/2019 1:00 PM EDT Medications list reconciled based upon the discharge summary medications list from Dr. Bridges on August 09, 2019. Her pharmacy as refused to fill ranitidine (drug recall) and has replaced it with famotidine. Medications she was previously taking but were removed in this abstract because they were NOT included in the discharge plan: Cyclobenzaprine Acebutolol Patient was confused about her medications in spite of her efforts to organize them. She had limitedsupport when she went to the office of Dr. Valdez for her injectable B12. She is confused about why B12 pills on her list when she gets routine intramuscular injections. New medications that puzzle her and she needs to discuss with Dr. Burkett: Midodrine and Fludrocortisone Both of these were prescribed inpatient due to her status and low cortisol levels. The discharge plan appears that these are to be taken for 2 weeks and her response assessed. PLAN: Albina will be seen by Dr. Burkett in the clinic on Friday. Patient has been instructed to bring all current and discontinued medications with her to the appointment. documented in this encounter Plan of Treatment Upcoming Encounters Date Type Specialty Care Team Description 09/02/2022 Office Visit Cardiology Patrice Burkett MD [facility] [address] [place], [place] [address] (Wo rk) 11/25/2022 Office Visit Dermatology Kole Mccain MD [address] [place] [address] DERMATOLOGY [place], [place] [address] (Wo rk) documented as of this encounter Visit Diagnoses Not on filedocumented in this encounter Care Teams Train Dispatcher Relationship Specialty Start Date End Date Quin Rojas MD PCP - General 04/03/[address] [facility] [place] [address] documented as of this encounter
--- OUTSIDE RECORDS SUMMARY | 2022-03-08 01:56 | XMS_ITS | Encounter Summary ---
:1945 Author Organization [facility] [place] [address] Care Team Providers Name Role Phone Quin Rojas MD Primary Care Provider Encounter Details Date Type Department Care Team Description 04/29/2019 [place] [address] Social History Tobacco Use Types Packs/Day [...] Team Description 09/02/2022 Office Visit Cardiology Patrice Burektt MD [facility] [address] [place], [place] [address] (Wo rk) 11/25/2022 Office Visit Dermatology Kole Mccain MD [address] [facility] DERMATOLOGY [place], [place] [address] (Wo rk) documented as of this encounter Procedures Procedure Name Priority Date/Time Associated Diagnosis Comme nts ECG SCAN Routine 04/29/2019 Results for thi s procedure are in the resu lts section. documented in this encounter Results Scan Doc: ECG (04/29/2019) Narrative This result has an attachment that is no t available. Historical Provider MD GONZALEZ MGR SCAN EXT ORDR/RSLT documented in this encounter Visit Diagnoses Not on filedocumented in this encounter Care Teams Termite Helper Relationship Specialty Start Date End Date Quin Rojas MD PCP - General 04/03/[address] [place] [address] documented as of this encounter
--- OUTSIDE RECORDS SUMMARY | 2022-03-08 01:56 | XMS_ITS | Encounter Summary ---
:1945 Author Organization [facility] [place] [address] Care Team Providers Name Role Phone Quin Rojas MD Primary Care Provider Reason for Visit Reason Onset Date Comments Medication Refill 12/17/2019 Encounter Details Date Type Department Care Team Description 12/17/2019 Refill Cardiology at [facility] Patrice Burkett MD Medication Refill [address] [place] [address] [place] [address] [phone] (Wo rk) Social History Tobacco Use Types [...] 09/02/2022 Office Visit Cardiology Patrice Burkett MD [facility] [address] [place] [address] (Wo rk) 11/25/2022 Office Visit Dermatology Kole Mccain MD [address] [facility] DERMATOLOGY [place], [place] [address] (Wo rk) documented as of this encounter Visit Diagnoses Diagnosis Chest pain, unspecified type documented in this encounter Care Teams Addiction Therapist Relationship Specialty Start Date End Date Quin Rojas MD PCP - General 04/03/[address] [place], [place] [address] documented as of this encounter
--- OUTSIDE RECORDS SUMMARY | 2022-03-08 01:57 | XMS_ITS | Encounter Summary ---
:1945 Author Organization [facility] [place] [address] Care Team Providers Name Role Phone Quin Rojas MD Primary Care Provider Encounter Details Date Type Department Care Team Description 04/01/2019 Interpretation Only Cardiology at [facility] abdifatah Cancino MD [address] [place] [address] [place], [place] [id number] [phone] Social History Tobacco Use Types Packs/Day Years [...] 09/02/2022 Office Visit Cardiology Patrice Burkett MD [facility] [address] [place], [place] [address] (Wo rk) 11/25/2022 Office Visit Dermatology Kole Mccain MD [address] [facility] [address] DERMATOLOGY [place], [place] [address] (Wo rk) documented as of this encounter Procedures Procedure Name Priority Date/Time Associated Diagnosis Comme nts HOLTER MONITOR 48 HOUR Routine 04/01/2019 Palpitations Resul ts for this procedure are i n the results section . documented in this encounter Results Holter Monitor 48hr (04/01/2019) Anatomical Region Laterality Modality Other Narrative 04/01/2019 [facility]: Madelaine Indication: Palpitations Duration of recording ? [id number] Summary Data Predominant rhythm ? sinus rhythm Minimum sinus rate: 52 bpm Maximum sinus rate: 108 bpm Average sinus rate: 68 bpm Supraventricular Beats Occasional (4.3%) atrial premature beats (APC? s) There were 0 runs of SVT There was no atrial fibrillation (the [facility] recorded episodes of afib; these were in fact sinus rhythm with PACs) Ventricular Beats Rare ventricular premature beats (VPC's) No high grade or sustained ventricular e ctopy AV Node No high grade conduction block noted There were many patient diary events: - Symptoms included: arms weak, quic k involuntary breaths, palpitations, short of breath/heavy chest feeling, lightheaded/short of breath, palpitations, short of breath - The majority of these events were cor related with normal sinus rhythm without significant arrhythmia nor ectopy. ??Chest heaviness was described with very ephemeral atrial bigeminy. Conclusion(s): ?? Predominant rhythm is sinus, with normal range and circadian variation No significant supraventricular or ventr icular ectopy. ??Of note, the vast majority of SVE was asymptomatic There is no clear electrophysiologic nid us to most of the patient's reported symptoms Electronically Signed: Patrice Burkett MD, 04/01/2019 9:39 AM Patrice Burkett MD CARDIAC SERVICES ORDERABLES documented in this encounter Visit Diagnoses Diagnosis Palpitations documented in this encounter Care Teams Skid [address] Man Relationship Specialty Start Date End Date Quin Rojas MD PCP - General 04/03/[address] [place] [address] documented as of this encounter
--- OUTSIDE RECORDS SUMMARY | 2022-03-08 01:57 | XMS_ITS | Encounter Summary ---
:1945 Author Organization [facility] [place] [address] Care Team Providers Name Role Phone Quin Rojas MD Primary Care Provider Reason for Visit Auth/Cert Specialty Diagnoses / Procedures Referred By Contact Refer red To Contact Diagnoses Unstable angina Angina Referral ID Status Reason Start Date Expiration Date Visits Requ ested Visits Authorized [id number] 1 1 Encounter Details Date Type Department Care Team Description 04/23/2019 Surgery Behavior Management Specialist Maurilio Ocampo CARDIAC CATHETERIZATION [facility] [address] [place] [address] [place] [address] [phone] (Wo rk) Social History Tobacco Use Types [...] Sign Reading Time Taken Comments Blood Pressure 140/90 04/23/2019 3:15 PM EST Pulse 76 04/23/2019 3:15 PM EST Temperature 36.9 ??C (98.4 ??F) 04/23/2019 2:03 PM EST Respiratory Rate 17 04/23/2019 3:15 PM EST Oxygen Saturation 97% 04/23/2019 3:15 PM EST Inhaled Oxygen Concentration - - Weight 67.1 kg (148 lb) 04/23/2019 2:03 PM EST Height - - Body Mass Index 28.45 04/23/2019 4:45 PM EST documented in this encounter Discharge Summaries Eric Reyes - 04/25/2019 10:41 AM EST Cardiology - Discharge Summary Patient Name: Albina Baptiste Patient Age: 73 y.o. Birthdate: 1945 Admit date: 04/23/2019 Discharge date and time: 04/25/2019 Attending Physician: Soha Fay MD Follow-up Recommendations for Providers: - Please monitor for continued symptoms of dizziness/lightheadedness with activity and down-titrate medications as needed - Please monitor for continued symptoms of angina and up-titrate ranolazine as needed - Due to low BP and symptoms, her home dose of metoprolol was decreased from 75mg daily to 50mg daily. Her home losartan was held. Please monitor BP outpatient and resume as needed. Discharge Diagnoses (Hospital Problems) and Secondary Diagnoses (Chronic Problems): Active Hospital Problems Diagnosis ??? Unstable angina Resolved Hospital Problems No resolved problems to display. Procedures/Cardiac Studies: cardiac catheterization (see full report below) History of Presentation (from original H&P dated 04/23/19): ID/Chief Complaint: [ Unstable Angina ] 73 y.o. female with history of ASCVD (history below) presents with NSTEMI. ?? 2005: mid LAD stent x2 and ostial D2 stent 2019: stent placed in prox and mid LAD, prox OM1, mid LCx. Angioplasty of ostial D2 lesion. Patient was CABG candidate but preferred PCI. ?? History of Present Illness: Albina reports that she has been experiencing significantly worsening chest discomfort for the past two days. These symptoms have been present since one week following her recent cath in February, buthave gotten progressively worse. She describes the discomfort as a substernal pressure, associated with L&R arm weakness, SOB, palpitations, and lightheadedness. No nausea or diaphoresis. Worse with minimal exertion, and now constant when at rest. Relieved to some degree by Nitro. She rates the discomfort as a 6/10 at its worst. She says this is similar to her previous VT but more intense. Of note she stopped taking her Imdur [address] Burkett due to dizziness. She has been on ASA and tic agrelor since February. ?? She presented to [facility]. Afebrile, BP 138/56, pulse 86, 99% on RA. She was given 324mg ASA. Hospital Course: # Unstable angina Albina underwent cardiac catheterization which showed non-obstructive CAD. There was a small diagonal branch that was occluded by a previously placed stent and may be the reason for her angina. This vessel is essentially blocked off by the original stent and cannot be accessed. She may continue to have angina until this territory scars down. Her Imdur was stopped due to her heavy symptom burden of dizziness/lightheadedness and weakness, as well as fear of syncopal episode. She was started on ranolazine. We did not trial amlodipine due to her low blood pressures but this is something that may be considered outpatient. Her metoprolol was decreased to 50 mg XL daily with good effect. # Medication side effects Albina reported significant dizziness/lightheadedness with activity that she believed was worse withthe Imdur and/or metoprolol she takes at home. We reduced her metoprolol dose to 50mg from 75mg. We stopped the Imdur as described above. We held her losartan due to low Bps here and her heavy symptom burden. Important Studies and Lab Data: Discharge Labs: Recent Labs 04/23/19 1756 WBC 8.6 HGB 13.8 PLATELET 246 Recent Labs 04/24/19 0928 04/23/19 1756 NA 144 141 K 3.6 4.2 CL 109* 107 CO2 22 20* BUN 14 13 CREATININE 0.76 0.78 GLUCOSE 132 182 Recent Labs 04/24/19 0928 04/23/19 1756 CALCIUM 9.1 9.4 9.4 MAGNESIUM -- 0.87 PHOS -- 3.3 No results for input(s): CK, TROPONINT in the last 168 hours. Recent Labs 04/23/19 1756 AST 25 ALT 18 ALKPHOS 95 BILITOT 0.7 BILIDIR 0.2 Recent Labs 04/23/19 1756 INR 1.2 Lab Results Component Value Date CHLPL 135 04/24/2019 HDL 60 04/24/2019 CHOLHDL 2.2 04/24/2019 TRIG 96 04/24/2019 LDLCHOL 84 02/13/2019 LDLDIRECT 65 04/24/2019 Recent Labs 04/24/19 0527 HA1C 5.1 Studies: Cardiac cath 04/23/19: Conclusions: * Nonobstructive coronary artery disease Pending Studies and Lab Data: None Discharge Conditions/Prognosis: Upon discharge the pt is hemodynamically stable, afebrile, fully ambulatory without requiring supplemental oxygen, holding down food/drink, and pain controlled with stable oral regimen. Discharge to: Home without services Discharge Medications: Your Medications New Medications Dose Details ranolazine ER 500 mg Tb12 Commonly known as: Ranexa Take 1 tablet by mouth 2 times daily. 500 mg Quantity: 100 tablet Refills: 3 Continued medications with new dosing Dose Details metoprolol succinate XL 25 mg Tablet sr Commonly known as: Toprol-XL Take 2 tablets by mouth daily. What changed: how much to take 50 mg Quantity: 90 tablet Refills: 2 Ventolin HFA 90 mcg/actuation Hfaa Inhale 2 puffs into the lungs 2 times daily as needed. Generic drug: albuterol What changed: Another medication with the same name was removed. Continue taking this medication, and follow the directions you see here. 2 puff Refills: 1 Continued medications, unchanged Dose Details acetaminophen 500 mg Tab Commonly known as: Tylenol Take 1,000 mg by mouth every 6 hours as needed for Pain. 1,000 mg Refills: 0 Advair Diskus 250-50 mcg/dose Dsdv Inhale 1 puff into the lungs 2 times daily. Generic drug: fluticasone propion-salmeterol 1 puff Refills: 0 aspirin EC 81 mg Tbec Take 81 mg by mouth daily. 81 mg Refills: 0 cholecalciferol (Vitamin D3) 50 mcg (2,000 unit) Cap Take 2,000 Units by mouth 2 times daily. Generic drug: cholecalciferol (Vitamin D3) 2,000 Units Refills: 0 Crestor 5 mg Tab Take 1 tablet by mouth nightly. Generic drug: rosuvastatin 5 mg Quantity: 30 tablet Refills: 2 cyclobenzaprine 5 mg Tab Commonly known as: FLEXERIL Take 5 mg by mouth 3 times daily as needed for Muscle spasms. 5 mg Refills: 0 cycloSPORINE 0.05 % Dpet Commonly known as: RESTASIS 1 drop 2 times daily. 1 drop Refills: 0 EYE VITAMIN AND MINERALS ORAL Take 1 capsule by mouth daily. 1 capsule Refills: 0 fluticasone propionate 50 mcg/actuation Spsn Commonly known as: FLONASE 2 sprays by Each Nare route nightly. 2 spray Refills: 0 losartan 50 mg Tab Commonly known as: Cozaar Take 1 tablet by mouth daily. 50 mg Quantity: 90 tablet Refills: 3 montelukast 10 mg Tab Commonly known as: Singulair Take 10 mg by mouth nightly. 10 mg Refills: 1 nitroGLYcerin 0.4 mg Subl Commonly known as: Nitrostat Place 1 tablet under the tongue every 5 minutes as needed for Chest pain (maximum 3 per day). 0.4 mg Quantity: 25 tablet Refills: 3 ranitidine 150 mg Tab Commonly known as: ZANTAC Take 150 mg by mouth 2 times daily. 150 mg Refills: 1 Synthroid 75 mcg Tab 75mcg, PO, Once daily Generic drug: levothyroxine Refills: 0 ticagrelor 90 mg Tab Commonly known as: Brilinta Take 1 tablet by mouth 2 times daily. 90 mg Quantity: 60 tablet Refills: 11 ubiquinone 10 mg Cap Commonly known as: coenzyme Q10 Take 100 mg by mouth daily. 100 mg Refills: 0 Updated Allergies/ADRs: Allergies Allergen Reactions ??? Pneumax [Phenylephrine-Guaifenesin] Rash Swelling ??? Oxycodone ??? Persantine [Dipyridamole] ??? Povidone-Iodine ??? Shellfish Derived crushing chest pain ??? Simvastatin myalgia ??? Thallium-201 ??? Iodine And Iodide Containing Products Reported chest pressure while eating lobster. Future Appointments and Orders Future Appointments and Orders Future Appointments Provider Department Dept Phone 06/22/2019 10:40 AM Patrice Burkett MD Cardiology at [place] Arrive at: [facility] [address] [phone] General Instructions None Patient Instructions Patient Instructions on Discharge to Home Why you were hospitalized: You had unstable angina, which was caused by a blockage in one of your heart arteries. This was NOT fixed with a stent during a cardiac catheretization because of the location of the lesion which was not accessible. Because you had this procedure, you shouldn't lift anything greater than 10 lbs for the next week and nothing greater than 20 lbs for 2 weeks. After that time you may go back to regular activity and work. Call your doctor if your wrist pain gets worse, or you develop swelling or redness in that area. Also, call your doctor if you develop sudden chest pain or shortness of breath, especially chest pain that does not go away with nitroglycerin. It is important that you take your aspirin 81mg daily foreverand clopidogrel 75mg daily for at least 1 year. Do not miss any doses of these medications! You were also experiencing dizziness, lightheadedness and weakness with ambulation and activity which was unusual for you. We believe these symptoms were caused by your medications. We have changed your medications to lessen these symptoms while still treating your angina. Please continue to follow with your Transit Mix Operator to adjust the medications as needed. New Medications: - Stop taking imdur - Start taking Ranolazine ER (Ranexa) 500 mg 2 times daily - We changed your metoprolol to 25 mg Twice a day - Hold off on taking the losartan now until you see Dr. Burkett, discuss whether or not to restart this (we stopped this because your BP got lower than we would want while you were here.) - You have close f/u with Dr. Burkett (appointment date and time below) When to call your doctor: - Chest pain, worsening shortness of breath, fatigue with usual exertion, or new rest/night time symptoms. - Weigh yourself daily and record; if you note an increase of more than 2-3 pounds in 2 days, or 5 pounds over a week, contact your health care provider. - If you become short of breath, cannot lie down to sleep, or have swelling in your legs/ankles or abdomen, contact your health care provider. - Call if you have reduced urination during the day or increased urination at night. - Call for signs of increased wound drainage, redness, swelling, or increased pain at the site of your cardiac cath. - Call if you develop a temp >100.5 If you have non-emergent questions between now and the time of your follow up appointments: During 8am-5pm Friday through Friday call [phone] to speak with a nurse in the cardiology clinic All other times call [phone] and ask to speak to the belt and link assembly supervisor home performance consultant. Activity level: - No heavy lifting (more than five pounds) for 48 hours; no more than 10 pounds for one week. - You may return to work in 1 week. Use common sense. Don't exhaust yourself. - No hunting, skiing, jogging, snow shoveling, snowmobiling, lawn mowing, swimming, golf or tennis until after your return appointment with your family doctor. - Do not ride motorcycles, tractors or horses until cleared by your doctor. Diet: - Heart healthy: low salt, low fat, low concentrated sweets. Remember to avoid added salt, canned foods, processed foods (ie hot dogs, sausage, cold meats), and foods naturally high in salt, such as potato chips or pizza. Driving: - Per your routine after [address] if you feel dizzy, light headed, or are taking narcotic medications (ie/ Oxycodone, Morphine, Dilaudid, etc). Shower/Bath: - You may shower 24 hours after cardiac catheterization. - You may not sit in water for 5 days (tub bath, hot tub or pool). Wound Care: - Cath site dressing may be removed in 24 hours. Site may be washed with soap/water. A dressing doesnot need to be reapplied unless irritation occurs with underclothes. If irritation occurs, apply clean band-aid daily. Exercise: - Exercise 5-7 days per week as tolerated with gradual increase to 30 minutes per day. Smoking cessation: - If you are currently a smoker, you are strongly urged to stop smoking! Smoking increases the severity and incidence of heart disease, and is a risk factor for cancer and emphysema. Your health care provider can provide specific measures to assist you, including nicotine supplements, anti-anxiety meds, and support groups in your community. Home oxygen therapy: NA Arrangements for VNA/home care: NA Follow up Appointments: Future Appointments Date Time Provider Department Center 06/22/2019 10:40 AM Patrice Burkett MD [facility] PCP: Quin Rojas MD at [phone] Your Inpatient Doctor(s) at [facility]: Soha Fay MD - Attending physician Anneliese Oneal MD - Resident physician Eric Reyes - Environmental Health Manager physician Your Primary Care Provider: Quin Rojas MD [address] [place] [phone] For questions regarding issues relating to your hospitalization on the Cardiology Service, please contact your inpatient physician through the [facility] Geriatric Care Manager [phone], pager #[phone]. Issues after hours and on weekends will be handled by the Cardiology staff on-call. Signed: Eric Reyes DO Internal Medicine PGY-2 documented in this encounter Discharge Instructions Patient InstructionsEric Reyes - 04/23/2019 4:21 PM EST Patient Instructions on Discharge to Home Why you were hospitalized: You had unstable angina, which was caused by a blockage in one of your heart arteries. This was NOT fixed with a stent during a cardiac catheretization because of the location of the lesion which was not accessible. Because you had this procedure, you shouldn't lift anything greater than 10 lbs for the next week and nothing greater than 20 lbs for 2 weeks. After that time you may go back to regular activity and work. Call your doctor if your wrist pain gets worse, or you develop swelling or redness in that area. Also, call your doctor if you develop sudden chest pain or shortness of breath, especially chest pain that does not go away with nitroglycerin. It is important that you take your aspirin 81mg daily foreverand clopidogrel 75mg daily for at least 1 year. Do not miss any doses of these medications! You were also experiencing dizziness, lightheadedness and weakness with ambulation and activity which was unusual for you. We believe these symptoms were caused by your medications. We have changed your medications to lessen these symptoms while still treating your angina. Please continue to follow with your Transit Mix Operator to adjust the medications as needed. New Medications: - Stop taking imdur - Start taking Ranolazine ER (Ranexa) 500 mg 2 times daily - We changed your metoprolol to 25 mg Twice a day - Hold off on taking the losartan now until you see Dr. Burkett, discuss whether or not to restart this (we stopped this because your BP got lower than we would want while you were here.) - You have close f/u with Dr. Burkett (appointment date and time below) When to call your doctor: - Chest pain, worsening shortness of breath, fatigue with usual exertion, or new rest/night time symptoms. - Weigh yourself daily and record; if you note an increase of more than 2-3 pounds in 2 days, or 5 pounds over a week, contact your health care provider. - If you become short of breath, cannot lie down to sleep, or have swelling in your legs/ankles or abdomen, contact your health care provider. - Call if you have reduced urination during the day or increased urination at night. - Call for signs of increased wound drainage, redness, swelling, or increased pain at the site of your cardiac cath. - Call if you develop a temp >100.5 If you have non-emergent questions between now and the time of your follow up appointments: During 8am-5pm Friday through Friday call [phone] to speak with a nurse in the cardiology clinic All other times call [phone] and ask to speak to the belt and link assembly supervisor home performance consultant. Activity level: - No heavy lifting (more than five pounds) for 48 hours; no more than 10 pounds for one week. - You may return to work in 1 week. Use common sense. Don't exhaust yourself. - No hunting, skiing, jogging, snow shoveling, snowmobiling, lawn mowing, swimming, golf or tennis until after your return appointment with your family doctor. - Do not ride motorcycles, tractors or horses until cleared by your doctor. Diet: - Heart healthy: low salt, low fat, low concentrated sweets. Remember to avoid added salt, canned foods, processed foods (ie hot dogs, sausage, cold meats), and foods naturally high in salt, such as potato chips or pizza. Driving: - Per your routine after [address] if you feel dizzy, light headed, or are taking narcotic medications (ie/ Oxycodone, Morphine, Dilaudid, etc). Shower/Bath: - You may shower 24 hours after cardiac catheterization. - You may not sit in water for 5 days (tub bath, hot tub or pool). Wound Care: - Cath site dressing may be removed in 24 hours. Site may be washed with soap/water. A dressing doesnot need to be reapplied unless irritation occurs with underclothes. If irritation occurs, apply clean band-aid daily. Exercise: - Exercise 5-7 days per week as tolerated with gradual increase to 30 minutes per day. Smoking cessation: - If you are currently a smoker, you are strongly urged to stop smoking! Smoking increases the severity and incidence of heart disease, and is a risk factor for cancer and emphysema. Your health care provider can provide specific measures to assist you, including nicotine supplements, anti-anxiety meds, and support groups in your community. Home oxygen therapy: NA Arrangements for VNA/home care: NA Follow up Appointments: Future Appointments Date Time Provider Department Center 06/22/2019 10:40 AM Patrice Burkett MD [facility] PCP: Quin Rojas MD at [phone] Your Inpatient Doctor(s) at [facility]: Soha Fay MD - Attending physician Anneliese Oneal MD - Resident physician Eric Reyes - Environmental Health Manager physician Your Primary Care Provider: Quin Rojas MD [address] [place] [address] / [facility] [id number] For questions regarding issues relating to your hospitalization on the Cardiology Service, please contact your inpatient physician through the [facility] Geriatric Care Manager [phone], pager #[phone]. Issues after hours and on weekends will be handled by the Cardiology staff on-call. documented in this encounter Medications at Time of Discharge Medication Sig Dispensed Refills Start Date End Date VENTOLIN HFA 90 Inhale 2 puffs 1 11/25/2018 mcg/actuation HFA Aerosol into the lungs 2 Inhaler times daily as needed. fluticasone (FLONASE) 50 2 sprays by Each 0 mcg/actuation [place], Nare route Suspension nightly. cycloSPORINE (RESTASIS) 1 drop 2 times 0 0.05 % Dropperette daily. aspirin 81 mg Tablet, Take 81 mg by 0 Delayed Release (E.C.) mouth daily. cholecalciferol, Vitamin Take 2,000 Units 0 D3, 50 mcg (2,000 unit) by mouth daily. Capsule ADVAIR DISKUS 250-50 Inhale 1 puff into 0 015 mcg/dose Disk with Device the lungs 2 times daily. montelukast (SINGULAIR) 10 Take 10 mg by 1 2014 mg Tablet mouth nightly. levothyroxine (SYNTHROID) 75mcg, PO, Once 0 11/06 75 mcg tablet daily metoprolol succinate XL Take 2 tablets by 90 tablet 2 04/2504/27/2019 (TOPROL-XL) 25 mg Tablet mouth daily. Sustained Release 24 hrIndications: Essential hypertension, Palpitations ranolazine ER (RANEXA) 500 Take 1 tablet by 100 tablet 3 05/17/2019 mg Tablet Sustained mouth 2 times Release 12 hr daily. nitroGLYcerin (NITROSTAT) Place 1 tablet 25 tablet 3 201812/17/2019 0.4 mg Tablet, under the tongue SublingualIndications: every 5 minutes as Chest pain, unspecified needed for Chest type pain (maximum 3 per day). CRESTOR 5 mg Take 1 tablet by 30 tablet 2 04/18/20192019 TabletIndications: mouth nightly. Hyperlipidemia, unspecified hyperlipidemia type ticagrelor (BRILINTA) 90 Take 1 tablet by 60 tablet 11 02/1705/17/2019 mg Tablet mouth 2 times daily. losartan (COZAAR) 50 mg Take 1 tablet by 90 tablet 3 201805/17/2019 TabletIndications: mouth daily. Essential hypertension acetaminophen (TYLENOL) Take 1,000 mg by 0 07/25/2020 500 mg Tablet mouth every 6 hours as needed for Pain. vit A/C/E ac/ZnOx/cupric Take 1 capsule by 0 03/05/2022 oxide (EYE VITAMIN AND mouth daily. MINERALS ORAL) cyclobenzaprine (FLEXERIL) Take 5 mg by mouth 0 08/13/2019 5 mg Tablet 3 times daily as needed for Muscle spasms. ubiquinone (COENZYME Q10) Take 100 mg by 0 08/13/2019 10 mg Capsule mouth daily. ranitidine (ZANTAC) 150 mg Take 150 mg by 1 12/0708/13/2019 Tablet mouth 2 times daily. documented as of this encounter Progress Notes Natali Leonard RN - 04/25/2019 1:10 PM EST Reviewed discharge summary wi/ pt., and spouse, questions answered, they do not have any concerns atthis time. IV removed and intact. Tele of full report in chart. Pt., in wheelchair to car. to drive home. Soha Fay MD - 04/25/2019 9:31 AM EST Images from the original note were not included. I have reviewed the pertinent information, examined the patient, and discussed the management and plan with the house staff (resident, international controller). ?? Brief history: 73 yo female with known CAD presents with further angina / palpitations. 2019: stent placed in prox and mid LAD, prox OM1, mid LCx. Angioplasty of ostial D2 lesion. Cath'd Friday w/out complications, no PCI performed. Some stenosis of diag and OM branches. Plan formed rx; no further PCI. Started Ranexa yesterday. She has had issues with other medications (hypotension). ?? Physical examination: HR 70's, BP 120 --> 90 mmHg RRR Lungs clear No edema ?? Pertinent data: Cath: Coronary Angiography: ?Dominance: Right ?Left Main ?The left main was normal, free of disease. ?Left Anterior Descending ?There was mild diffuse (<=25% stenosis) disease of the entire vessel ?segment of the left anterior descending artery (LAD). ??The ?previously placed stent is patent. ?There was a 45% single discrete stenosis of the ostial segment of ?the second diagonal branch (Diagonal 2) of the LAD. ??The distal ?vessel was moderate in size. ?Left Circumflex ?There was mild diffuse (<=25% stenosis) disease of the mid segment ?of the left circumflex artery (LCX). ??The previously placed stent is ?patent. ?There was a 35% single discrete stenosis of the ostial segment of ?the first obtuse marginal branch (OM1) of the LCX. ??The previously ?placed stent is patent. ?Right Coronary Artery ?There was mild diffuse (<=25% stenosis) disease of the mid segment ?of the right coronary artery (RCA). ? Vascular Access: ?Vascular Access Management: ?Mechanical Compression of the right radial artery access site was ?performed. ? Conclusions: ?* Nonobstructive coronary artery disease ? Results for ALBINA BAPTISTE ( ) as of 04/25/2019 09:32 Ref. Range 04/24/2019 09:28 Sodium Latest Ref Range: 135 - 145 mmol/L 144 Potassium Latest Ref Range: 3.5 - 5.0 mmol/L 3.6 Chloride Latest Ref Range: 98 - 107 mmol/L 109 (H) CO2 Latest Ref Range: 22 - 31 mmol/L 22 Anion Gap Latest Ref Range: 5 - 15 mmol/L 13 BUN Latest Ref Range: 8 - 18 mg/dL 14 Creatinine Latest Ref Range: 0.70 - 1.20 mg/dL 0.76 eGFR Latest Ref Range: >=60 mL/min/1.73 m?? 77 eGFR Latest Ref Range: >=60 mL/min/1.73 m?? 89 Glucose Lvl Latest Ref Range: 65 - 199 mg/dL 132 Calcium Latest Ref Range: 8.5 - 10.5 mg/dL 9.1 ? Impression: 1. CAD, chest pain, no VT 2. HTN 3. Palpitations 4. Hypothyroidism ?? Plan: 1. Med rx: asa, ticagrelor, statin 2. Imdur stopped due to side effects 3. Amlodipine not started due to hypotension 4. Metop (decreased dose); 50 mg XLdaily 5. Ranolazine, 500 mg BID has been started 6. Ambulate, home today with Dr. Burkett' follow-up in [place] ?? The patient understands the plan and all questions were answered. ?? Soha Fay MD Eric Reyes - 04/25/2019 7:35 AM EST Cardiology Inpatient Progress Note Admit date: Hospital day: Service: Attending 04/23/2019 2 S1 Pager [phone] Soha Fay MD ID: Albina Baptiste is a 73 y.o. female with known ASCVD (history below) presented with unstable angina. Cath'd on 04/24/19 w/out complications, no PCI performed. Plan for medical treatment. ?? 2005: mid LAD stent x2 and ostial D2 stent 2019: stent placed in prox and mid LAD, prox OM1, mid LCx. Angioplasty of ostial D2 lesion. Patient was CABG candidate but preferred PCI. Will discharge today. (S) - NAEON; 9:00 PM metoprolol held for soft pressures (/33) - Per patient: continues to feel symptomatic with palpitations and SOB (mostly with activity and upon standing; though endorses occasional palpitations with simply lying down) - Changes made yesterday; decreased metoprolol to 12.5 mg Q6H, home losartan previously held, imdur 30 mg daily continued - Denies CP (O) 24 hr Vitals T Temp: [36.7 ??C (98.1 ??F)-37 ??C (98.6 ??F)] HR Heart Rate: [77-83] BP BP: (91-124)/(33-58) RR Resp: [16-18] SpO2 SpO2: [96 %-99 %] IO 04/24 0701 - 04/25 0700 In: 820 [P.O.:820] Out: 1200 [Urine:1200] Wt Last 68.3 kg (150 lb 9.2 oz) Admit 67.13 kg Physical Exam General - No acute distress. ENT - Mouth moist without lesions. Eyes - EOMI. Not jaundiced. Noninjected Neck - No lymphadenopathy. No thyromegaly Lungs - Clear to auscultation. Heart - Regular, S1,S2, no audible murmur, gallop or rubs. Abdomen/GI - Soft, nontender, normal active bowel sounds, neg hsm or masses. Extremities - No clubbing, cyanosis or edema. Pulses intact. Neuro - AAOx3 Labs Recent Labs 04/23/19 1756 WBC 8.6 HGB 13.8 HCT 40.6 PLATELET 246 Recent Labs 04/23/19 1756 INR 1.2 Recent Labs 04/24/19 0928 04/23/19 1756 NA 144 141 K 3.6 4.2 CL 109* 107 CO2 22 20* BUN 14 13 CREATININE 0.76 0.78 Recent Labs 04/24/19 0928 04/23/19 1756 CALCIUM 9.1 9.4 9.4 MAGNESIUM -- 0.87 PHOS -- 3.3 No results for input(s): CK, TROPONINT in the last 168 hours. Recent Labs 04/23/19 1756 TSH 0.78 Recent Labs 04/24/19 0527 HA1C 5.1 Lab Results Component Value Date CHLPL 135 04/24/2019 HDL 60 04/24/2019 CHOLHDL 2.2 04/24/2019 TRIG 96 04/24/2019 LDLCHOL 84 02/13/2019 LDLDIRECT 65 04/24/2019 Microbiology N/A Studies Cardiac cath (04/24/19): Procedures: * Coronary Angiography * Left Heart Catheterization History Albina Baptiste is a 73 year old woman. She has hypertension. The patient's smoking status is Never. She has hypercholesterolemia managed with lipid therapy. The patient has a prior history of coronary artery disease. She had a recent coronary intervention procedure. Prior to the initiation of this procedure, the patient was designated as ASA Class III. The [facility] clinical frailty scale is 3: Managing Well. Diagnostic Tests: Prior Coronary Angiography: Prior coronary angiography was performed on 02/15/2019 and showed obstructive CAD. LV ejection fraction within 6 months is 2%. Electrocardiography: EKG was assessed by ECG. EKG was Abnormal. EKG showed other abnormality. Stress or Imaging Studies: A stress test with SPECT imaging was performed on 04/14/2019 and was Positive with Intermediate results. Medications Prior to Procedure: Beta Cedrick, Long Acting Nitrate and Statin. Indications for Diagnostic Cath: The priority of the diagnostic procedure was Urgent. The indication for the earth science laboratory technician visit is other indication. Chest pain symptom assessment was: Atypical Angina. Technique: A 6 SLFr sheath was inserted in the right radial artery utilizing the Seldinger technique. The left coronary artery was injected utilizing a 5Fr JL 3.5 catheter. A 5Fr JR 4 catheter was used to inject the right coronary artery. Left ventricular pressure was performed with a 5Fr JR 4 catheter. 4,000 units of heparin were administered. A total of 100cc of Omnipaque were opened, 40cc of Omnipaque were administered and 60cc of Omnipaque were wasted. Radiation: Fluoro time was 5.2 minutes, dose area product was 52,167 mGYcm2 and air kerma was 654 mGY. See the case log for additional details. The patient received the following medications prior to and during the procedure: Unfractionated Heparin and Ticagrelor. Hemodynamics: Left Heart Pressures Resting: Syst Diast EDP a v m Ao 105 40 61 LV 116 7 Coronary Angiography: Dominance: Right Left Main The left main was normal, free of disease. Left Anterior Descending There was mild diffuse (<=25% stenosis) disease of the entire vessel segment of the left anterior descending artery (LAD). The previously placed stent is patent. There was a 45% single discrete stenosis of the ostial segment of the second diagonal branch (Diagonal 2) of the LAD. The distal vessel was moderate in size. Left Circumflex There was mild diffuse (<=25% stenosis) disease of the mid segment of the left circumflex artery (LCX). The previously placed stent is patent. There was a 35% single discrete stenosis of the ostial segment of the first obtuse marginal branch (OM1) of the LCX. The previously placed stent is patent. Right Coronary Artery There was mild diffuse (<=25% stenosis) disease of the mid segment of the right coronary artery (RCA). Vascular Access: Vascular Access Management: Mechanical Compression of the right radial artery access site was performed. Conclusions: * Nonobstructive coronary artery disease Complications/Events: The patient had no complications during these procedures. (A/P) 73 y.o. female presents with unstable angina. She is s/p cath with no stentable lesion. Troponins have been negative. She does have a dwindling diag branch that may be causing her angina. Again, we arenot able to stent that. She has both angina due and dizziness/lightheadedness likely from her medications. Plan to optimize medical management for best symptom control. Possible dc home today if she is stable on adjusted regimen. # Unstable angina -JACOB score 5: [x ] age > 65 [x ] 3 risk factors (HTN, HLD, DM, current smoker, famhx CAD) [x ] known CAD (> 50% stenosis) [x ] ASA use in last 7d [x ] severe angina (> 2 episodes w/in 24 hrs) [ ] ST deviation (> 0.5mm) [ ] biomarker elevation ?? 0-2 Low risk - 8% - conservative approach 3-4 Intermediate risk - early invasive 5-7 High risk - 31%- early invasive - Admit to ICCU for telemetry monitoring - Stop trending Cardiac enzymes unless symptoms worsen/change - CBC, lytes, BUN, creatinine, TSH, Lipids, LFTS, PT/INR - s/p ASA load; continue 81mg daily - continue ticagrelor 90mg BID - no heparin given - B-cedrick: takes 75mg metoprolol succinate at home - tapered to 50mg in q6hr dosing (tolerated well) (use of BB reduces cardiovascular mortality by 10-25% for pts not treated with PCI - data are inconclusive for this group) Goal for oral BB therapy within 24 hours; titrate to HR 70 by discharge IV BB prior to PCI is controversial but can be given in some circumstances Contraindications include hemodynamic instability, risk of shock, or heart failure - rales, JVD, pulm edema, cocaine use, heart block - FEROZ-I: held home losartan 50mg daily pending hemodynamics - Statin: resume home crestor 5mg nightly - Discontinued home Imdur 30mg daily --> switched to ranolazine 500 mg BID with good response - NTG prn - Oxygen prn # Other home meds: - continue montelukast, flonase, ventolin, advair - continue cyclosporine 0.05% eye drops 1 drop BID - continue ranitidine - continue synthroid 75mcg # Others DVT- lovenox 40 daily GI- N/A Activity- as tolerated Nutrition- cardiac Lines- PIV PT/OT- N/A Dispo- home when ready ?? CODE STATUS: Full Code Eric Reyes DO PGY-1 Internal Medicine Anneliese Oneal MD - 04/24/2019 8:21 AM EST Cardiology Inpatient Progress Note Admit date: Hospital day: Service: Attending 04/23/2019 1 S1 Pager [phone] Soha Fay MD ID: Albina Baptiste is a 73 y.o. female with known ASCVD (history below) presents with unstable angina. ?? 2005: mid LAD stent x2 and ostial D2 stent 2019: stent placed in prox and mid LAD, prox OM1, mid LCx. Angioplasty of ostial D2 lesion. Patient was CABG candidate but preferred PCI. (S) - s/p cath yesterday with no culprit lesion - Negative troponins - Per patient: continues to feel symptomatic with dizziness, chest pressure, SOB (O) 24 hr Vitals T Temp: [36.4 ??C (97.5 ??F)-36.9 ??C (98.4 ??F)] HR Heart Rate: [55-88] BP BP: (91-145)/(39-90) RR Resp: [12-19] SpO2 SpO2: [93 %-99 %] IO 04/23 0701 - 04/24 0700 In: 480 [P.O.:480] Out: 400 [Urine:400] Wt Last 67.8 kg (149 lb 7.6 oz) Admit 67.13 kg Physical Exam General - No acute distress. ENT - Mouth moist without lesions. Eyes - EOMI. Not jaundiced. Noninjected Neck - No lymphadenopathy. No thyromegaly Lungs - Clear to auscultation. Heart - Regular, S1,S2, no audible murmur, gallop or rubs. Abdomen/GI - Soft, nontender, normal active bowel sounds, neg hsm or masses. Extremities - No clubbing, cyanosis or edema. Pulses intact. Neuro - AAOx3 Labs Recent Labs 04/23/19 1756 WBC 8.6 HGB 13.8 HCT 40.6 PLATELET 246 Recent Labs 04/23/19 1756 INR 1.2 Recent Labs 04/23/19 1756 NA 141 K 4.2 CL 107 CO2 20* BUN 13 CREATININE 0.78 Recent Labs 04/23/19 1756 AST 25 ALT 18 ALKPHOS 95 BILITOT 0.7 BILIDIR 0.2 Recent Labs 04/23/19 1756 CALCIUM 9.4 9.4 MAGNESIUM 0.87 PHOS 3.3 No results for input(s): CK, TROPONINT in the last 168 hours. Recent Labs 04/23/19 1756 TSH 0.78 Recent Labs 04/24/19 0527 HA1C 5.1 Lab Results Component Value Date CHLPL 135 04/24/2019 HDL 60 04/24/2019 CHOLHDL 2.2 04/24/2019 TRIG 96 04/24/2019 LDLCHOL 84 02/13/2019 LDLDIRECT 65 04/24/2019 Microbiology N/A Studies Cardiac cath (04/24/19): Procedures: * Coronary Angiography * Left Heart Catheterization History Albina Baptiste is a 73 year old woman. She has hypertension. The patient's smoking status is Never. She has hypercholesterolemia managed with lipid therapy. The patient has a prior history of coronary artery disease. She had a recent coronary intervention procedure. Prior to the initiation of this procedure, the patient was designated as ASA Class III. The [facility] clinical frailty scale is 3: Managing Well. Diagnostic Tests: Prior Coronary Angiography: Prior coronary angiography was performed on 02/15/2019 and showed obstructive CAD. LV ejection fraction within 6 months is 2%. Electrocardiography: EKG was assessed by ECG. EKG was Abnormal. EKG showed other abnormality. Stress or Imaging Studies: A stress test with SPECT imaging was performed on 04/14/2019 and was Positive with Intermediate results. Medications Prior to Procedure: Beta Cedrick, Long Acting Nitrate and Statin. Indications for Diagnostic Cath: The priority of the diagnostic procedure was Urgent. The indication for the earth science laboratory technician visit is other indication. Chest pain symptom assessment was: Atypical Angina. Technique: A 6 SLFr sheath was inserted in the right radial artery utilizing the Seldinger technique. The left coronary artery was injected utilizing a 5Fr JL 3.5 catheter. A 5Fr JR 4 catheter was used to inject the right coronary artery. Left ventricular pressure was performed with a 5Fr JR 4 catheter. 4,000 units of heparin were administered. A total of 100cc of Omnipaque were opened, 40cc of Omnipaque were administered and 60cc of Omnipaque were wasted. Radiation: Fluoro time was 5.2 minutes, dose area product was 52,167 mGYcm2 and air kerma was 654 mGY. See the case log for additional details. The patient received the following medications prior to and during the procedure: Unfractionated Heparin and Ticagrelor. Hemodynamics: Left Heart Pressures Resting: Syst Diast EDP a v m Ao 105 40 61 LV 116 7 Coronary Angiography: Dominance: Right Left Main The left main was normal, free of disease. Left Anterior Descending There was mild diffuse (<=25% stenosis) disease of the entire vessel segment of the left anterior descending artery (LAD). The previously placed stent is patent. There was a 45% single discrete stenosis of the ostial segment of the second diagonal branch (Diagonal 2) of the LAD. The distal vessel was moderate in size. Left Circumflex There was mild diffuse (<=25% stenosis) disease of the mid segment of the left circumflex artery (LCX). The previously placed stent is patent. There was a 35% single discrete stenosis of the ostial segment of the first obtuse marginal branch (OM1) of the LCX. The previously placed stent is patent. Right Coronary Artery There was mild diffuse (<=25% stenosis) disease of the mid segment of the right coronary artery (RCA). Vascular Access: Vascular Access Management: Mechanical Compression of the right radial artery access site was performed. Conclusions: * Nonobstructive coronary artery disease Complications/Events: The patient had no complications during these procedures. (A/P) 73 y.o. female presents with unstable angina. She is s/p cath with no stentable lesion. Troponins have been negative. She does have a dwindling diag branch that may be causing her angina. Again, we arenot able to stent that. She has both angina due and dizziness/lightheadedness likely from her medications. Plan to optimize medical management for best symptom control. Possible dc home today if she is stable on adjusted regimen. # Unstable angina -JACOB score 5: [x ] age > 65 [x ] 3 risk factors (HTN, HLD, DM, current smoker, famhx CAD) [x ] known CAD (> 50% stenosis) [x ] ASA use in last 7d [x ] severe angina (> 2 episodes w/in 24 hrs) [ ] ST deviation (> 0.5mm) [ ] biomarker elevation ?? 0-2 Low risk - 8% - conservative approach 3-4 Intermediate risk - early invasive 5-7 High risk - 31%- early invasive - Admit to ICCU for telemetry monitoring - Stop trending Cardiac enzymes unless symptoms worsen/change - CBC, lytes, BUN, creatinine, TSH, Lipids, LFTS, PT/INR - s/p ASA load; continue 81mg daily - continue ticagrelor 90mg BID - no heparin given - B-cedrick: takes 75mg metoprolol succinate at home - taper to 50mg in q6hr dosing (use of BB reduces cardiovascular mortality by 10-25% for pts not treated with PCI - data are inconclusive for this group) Goal for oral BB therapy within 24 hours; titrate to HR 70 by discharge IV BB prior to PCI is controversial but can be given in some circumstances Contraindications include hemodynamic instability, risk of shock, or heart failure - rales, JVD, pulm edema, cocaine use, heart block - FEROZ-I: hold home losartan 50mg daily pending hemodynamics - Statin: resume home crestor 5mg nightly - Resume home Imdur 30mg daily - NTG prn - Oxygen prn ?? # Other home meds: - continue montelukast, flonase, ventolin, advair - continue cyclosporine 0.05% eye drops 1 drop BID - continue ranitidine - continue synthroid 75mcg # Others DVT- lovenox 40 daily GI- N/A Activity- as tolerated Nutrition- cardiac Lines- PIV PT/OT- N/A Dispo- home when ready ?? CODE STATUS: Full Code Anneliese Oneal MD Internal medicine PGY-2 Zack Ann MD - 04/23/2019 8:55 PM EST Post Cardiac Catheterization Check Note Subjective: No chest pain, dyspnea, R hand/arm pain. No rash. No weakness/numbness/tingling. No bleeding/swelling from access site. Objective: Blood pressure 112/62, pulse 70, temperature 36.4 ??C (97.5 ??F), temperature source Oral, resp. rate 17, height 154.9 cm (5' 1), weight 67 kg (147 lb 11.3 oz), SpO2 97 %. General: Lying in bed in NAD. Site: access site without hematoma or ecchymoses. Dressing c/d/i. No bruit. Nontender. Extrem: no livedo reticularis, warm/symmetric, sensation intact/symmetric, symmetric 2+ radial pulses. A/P: s/p cath with benign-appearing right radial access site and no issues Zack Spann MD Natali Lau RN - 04/23/2019 5:44 PM EST OUTCOME SUMMARY: Pt., A&O, VS in doc flow, tele: SR/Atrial bigem, full report in chart. Pt., came from the earth science laboratory technician, TR band maintained per protocol, off at 1750, site WDL, CDI, +CMS. She denies CP, but does c/o intermittent SOB. EKG and labs obtained. She is sitting up in bed comfortably. at the bedside. Call douglas within reach. Will continue to monitor. ?? PLAN MOVING FORWARD: Med manage, overnight observation for palpitations, and Xray ordered. ?? INDIVIDUALIZED FALL PREVENTION INTERVENTIONS: ?? Patient-specific fall risk factors per assessment: [current deficits]:?? Incisions, IV line, hospital environment, comorbidities, palpitations. ?? Assistance [level of assistance required for transfers and ambulation]:?? SBA ?? Supervision [direct monitoring required during toileting and ADLs]:?? eyes on. ?? Surveillance [continuous indirect monitoring]:? Tele, purposeful nurse rounding, call douglas within reach. ?? CPG GOAL OUTCOME EVALUATION:? ongoing documented in this encounter H&P Notes Soha Fay MD - 04/24/2019 8:20 AM EST Images from the original note were not included. I have reviewed the pertinent information, examined the patient, and discussed the management and plan with the house staff (resident, international controller). Brief history: 73 yo female with known CAD presents with further angina / palpitations. 2019: stent placed in prox and mid LAD, prox OM1, mid LCx. Angioplasty of ostial D2 lesion. No VT detected. Cath'd yesterday w/out complications, no PCI performed. Some stenosis of diag and OM branches. Plan for med rx. Today, a bit lightheaded upon standing, BP low Physical examination: HR 70's, BP 120 --> 90 mmHg RRR Lungs clear No edema Pertinent data: Cath: Coronary Angiography: Dominance: Right Left Main The left main was normal, free of disease. Left Anterior Descending There was mild diffuse (<=25% stenosis) disease of the entire vessel segment of the left anterior descending artery (LAD). The previously placed stent is patent. There was a 45% single discrete stenosis of the ostial segment of the second diagonal branch (Diagonal 2) of the LAD. The distal vessel was moderate in size. Left Circumflex There was mild diffuse (<=25% stenosis) disease of the mid segment of the left circumflex artery (LCX). The previously placed stent is patent. There was a 35% single discrete stenosis of the ostial segment of the first obtuse marginal branch (OM1) of the LCX. The previously placed stent is patent. Right Coronary Artery There was mild diffuse (<=25% stenosis) disease of the mid segment of the right coronary artery (RCA). Vascular Access: Vascular Access Management: Mechanical Compression of the right radial artery access site was performed. Conclusions: * Nonobstructive coronary artery disease Impression: 1. CAD, chest pain, no VT 2. HTN 3. Palpitations 4. Hypothyroidism Plan: 1. Med rx: asa, statin, imdur, metop (decreased dose), ticagrelor 2. Ambulate, and if stable, home later today The patient understands the plan and all questions were answered. Soha Fay MD Anneliese Oneal MD - 04/23/2019 1:58 PM EST Cardiology Admission History and Physical Patient Name: Albina Baptiste Service: Cardiology S1 Team Responsible Attending: SOHA FAY MD PCP: Quin Rojas MD PCP phone #: [phone] ID/Chief Complaint: [ Unstable Angina ] 73 y.o. female with history of ASCVD (history below) presents with NSTEMI. 2005: mid LAD stent x2 and ostial D2 stent 2019: stent placed in prox and mid LAD, prox OM1, mid LCx. Angioplasty of ostial D2 lesion. Patient was CABG candidate but preferred PCI. History of Present Illness: Albina reports that she has been experiencing significantly worsening chest discomfort for the past two days. These symptoms have been present since one week following her recent cath in February, buthave gotten progressively worse. She describes the discomfort as a substernal pressure, associated with L&R arm weakness, SOB, palpitations, and lightheadedness. No nausea or diaphoresis. Worse with minimal exertion, and now constant when at rest. Relieved to some degree by Nitro. She rates the discomfort as a 6/10 at its worst. She says this is similar to her previous VT but more intense. Of note she stopped taking her Imdur [address] Burkett due to dizziness. She has been on ASA and tic agrelor since February. She presented to [facility]. Afebrile, BP 138/56, pulse 86, 99% on RA. She was given 324mg ASA. OSH workup and intervention prior to transfer: Labs: - CBC wnl - K 3.8, Mg 2.1 - Cr 0.62 - Troponin negative @ 10:42 EKG: NSR with ventricular bigeminy; no evidence of acute ischemia/infarct On arrival she continued to have chest discomfort 07/19. She was taken to the earth science laboratory technician. Pre-treated with solu-medrol due to history of iodine allergy. No culprit lesions were identified. Review of Systems: Negative unless noted above. Problem List/Past Medical History Patient Active Problem List Diagnosis ??? Unstable angina ??? Palpitations 2013: negative Holter ??? Hypothyroidism ??? Essential hypertension ??? Coronary atherosclerosis of [place] coronary artery 2005: 2 stents to mid LAD and stent to osteal D2 (bifurcation lesion) at [facility] 01/2018- ST II, HR 126, BP [...] 24 Promus 2.5 x 16 Promus RCA ??? Asthma ??? Hyperlipidemia ??? Posterior tibial tendon dysfunction ??? Ocular rosacea Meds: No current facility-administered medications on file prior to encounter. Current Outpatient Medications on File Prior to Encounter Medication Sig Dispense Refill ??? nitroGLYcerin (NITROSTAT) 0.4 mg Tablet, Sublingual Place 1 tablet under the tongue every 5 minutes as needed for Chest pain (maximum 3 per day). 25 tablet 3 ??? CRESTOR 5 mg Tablet Take 1 tablet by mouth nightly. 30 tablet 2 ??? metoprolol succinate (TOPROL-XL) 25 mg Tablet Sustained Release 24 hr Take 3 tablets by mouth daily. 90 tablet 2 ??? ticagrelor (BRILINTA) 90 mg Tablet Take 1 tablet by mouth 2 times daily. 60 tablet 11 ??? losartan (COZAAR) 50 mg Tablet Take 1 tablet by mouth daily. 90 tablet 3 ??? cycloSPORINE (RESTASIS) 0.05 % Dropperette 1 drop 2 times daily. ??? albuterol (PROVENTIL) 2.5 mg /3 mL (0.083 %) Solution for Nebulization Take 2.5 mg by nebulization every 4 hours as needed for Wheezing. ??? aspirin 81 mg Tablet, Delayed Release (E.C.) Take 81 mg by mouth daily. ??? ADVAIR DISKUS 250-50 mcg/dose Disk with Device Inhale 1 puff into the lungs 2 times daily. 0 ??? ranitidine (ZANTAC) 150 mg Tablet Take 150 mg by mouth 2 times daily. 1 ??? levothyroxine (SYNTHROID) 75 mcg tablet 75mcg, PO, Once daily ??? acetaminophen (TYLENOL) 500 mg Tablet Take 1,000 mg by mouth every 6 hours as needed for Pain. ??? VENTOLIN HFA 90 mcg/actuation HFA Aerosol Inhaler Inhale 2 puffs into the lungs 2 times daily asneeded. 1 ??? vit A/C/E ac/ZnOx/cupric oxide (EYE VITAMIN AND MINERALS ORAL) Take 1 capsule by mouth daily. ??? fluticasone (FLONASE) 50 mcg/actuation [place], Suspension 2 sprays by Each Nare route nightly. ??? cyclobenzaprine (FLEXERIL) 5 mg Tablet Take 5 mg by mouth 3 times daily as needed for Muscle spasms. ??? cholecalciferol, Vitamin D3, (CHOLECALCIFEROL, VITAMIN D3,) 2,000 unit Capsule Take 2,000 Units by mouth 2 times daily. ??? ubiquinone (COENZYME Q10) 10 mg Capsule Take 100 mg by mouth daily. ??? montelukast (SINGULAIR) 10 mg Tablet Take 10 mg by mouth nightly. 1 Allergies: Allergies Allergen Reactions ??? Pneumax [Phenylephrine-Guaifenesin] Rash Swelling ??? Oxycodone ??? Persantine [Dipyridamole] ??? Povidone-Iodine ??? Shellfish Derived crushing chest pain ??? Simvastatin myalgia ??? Thallium-201 ??? Iodine And Iodide Containing Products Reported chest pressure while eating lobster. 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 ENT - Mouth moist without lesions. Eyes - EOMI. Not jaundiced. Noninjected Neck - No lymphadenopathy. No thyromegaly Lungs - Clear to auscultation. Heart - Regularly irregular, S1,S2, no audible murmur, gallop or rubs. Abdomen/GI - Soft, nontender, normal active bowel sounds, neg hsm or masses. Extremities - No clubbing, cyanosis or edema. Pulses intact. Neuro - AAOx3 Lines: PIV Laboratory: Pending at the time of this note. Microbiology: None Diagnostic Studies: EKG- pending at the time of this note CXR- pending at the time of this note NM stress test (04/23/19): Mild distal anterior/apex ischemia and no infarct pattern, normal LV function. Holter monitor for 48 hrs (04/01/19): Conclusion(s): ?? Predominant rhythm is sinus, with normal range and circadian variation No significant supraventricular or ventricular ectopy. ??Of note, the vast majority of SVE was asymptomatic There is no clear electrophysiologic nidus to most of the patient's reported symptoms Cardiac Cath (02/16/19): Note - initial cath on 02/15/19 followed by shared decision making re: CABG vs PCI - patient chose PCI Conclusions: * Obstructive disease of the LAD and LCX * Successful stent insertion of the proximal LAD lesion * Successful stent insertion of the mid LAD lesion * Successful stent insertion of the proximal OM1 lesion * Successful angioplasty of the ostial D2 lesion * Successful stent insertion of the mid LCX lesion * Recommend continuing ticagrelor 90 mg PO twice daily for 12 months (see DAPT Recommendations above for more information.) ASSESSMENT: 73 y.o. female presents with unstable angina. She is s/p cath with no culprit lesion. Will keep overnight to monitor for palpitations. Optimize medical management for symptom control. PLAN: Admit to Cardiology, Team Pager # [phone] # Unstable angina -JACOB score 5: [x ] age > 65 [x ] 3 risk factors (HTN, HLD, DM, current smoker, famhx CAD) [x ] known CAD (> 50% stenosis) [x ] ASA use in last 7d [x ] severe angina (> 2 episodes w/in 24 hrs) [ ] ST deviation (> 0.5mm) [ ] biomarker elevation 0-2 Low risk - 8% - conservative approach 3-4 Intermediate risk - early invasive 5-7 High risk - 31%- early invasive - Admit to ICCU for telemetry monitoring - Trend Cardiac enzymes - CBC, lytes, BUN, creatinine, TSH, Lipids, LFTS, PT/INR - s/p ASA load; continue 81mg daily - continue ticagrelor 90mg BID - no heparin given - B-cedrick: takes 75mg metoprolol succinate at home - start 25mg tartrate q6hr (use of BB reduces cardiovascular mortality by 10-25% for pts not treated with PCI - data are inconclusive for this group) Goal for oral BB therapy within 24 hours; titrate to HR 70 by discharge IV BB prior to PCI is controversial but can be given in some circumstances Contraindications include hemodynamic instability, risk of shock, or heart failure - rales, JVD, pulm edema, cocaine use, heart block - FEROZ-I: resume home losartan 50mg daily pending hemodynamics - Statin: resume home crestor 5mg nightly - NTG prn - consider nitro ggt for ongoing ischemia and HTN - Oxygen prn # Other home meds: - continue montelukast, flonase, ventolin, advair - continue cyclosporine 0.05% eye drops 1 drop BID - continue ranitidine - continue synthroid 75mcg # Others DVT- lovenox 40 daily GI- N/A Activity- as tolerated Nutrition- cardiac Lines- PIV PT/OT- N/A Dispo- home when ready CODE STATUS: Full Code Anneliese Oneal MD Internal Medicine, PGY2 Braxton Whittaker MD - 04/23/2019 1:56 PM EST Images from the original note were not included. Pre Cardiac Catheterization Note 73 y.o. female w/ hx of CAD nad multiple prior stents who presented to [place] with chest discomfort, shortness of breath, and exertional angina.These symptoms had initially abated following her cathterization and stent placement in February, but it returned a week after. She has been compliant with aspirin and ticagrelor. She was taking imdur but has since stopped as she did not see benefit. She presented to the [place] ED yesterday with palpitations, found to have ventricular bigeminy. She returned today after an episode of chest pain and diaphoresis prompting transfer for cardiac catheterization. No planned upcoming surgeries. No recent or ongoing bleeding events. No black stools. HR 80s (ventricular bigeminy), BP 141/100, sat upper 90s on RA Gen: Pleasant female in no apparent distress, able to lay flat Cor: rrr, s1/s2 of nl character and amplitude, no m/r/g. jvp not elevated Pulm: CTAB, no wheezes or rales Ext: radial pulses 2/2 Neuro: sans focal deficit ASA: 2: Patient with mild systemic disease Mallampati: II: tonsillar pillars are blocked by the tongue Last 3 wbc, hgb, hct plt Recent Labs 02/17/19 0341 02/16/19 0410 02/15/19 0445 WBC 7.2 9.8* 13.8* HGB 11.5* 11.2* 11.7 HCT 33.5* 33.4* 33.5* PLATELET 176 202 230 Last 3 Lytes Recent Labs 02/17/19 0341 02/16/19 0410 02/15/19 0445 NA 142 143 142 K 4.0 3.6 3.9 CL 108* 109* 108* CO2 24 22 21* BUN 18 23* 19* CREATININE 0.60* 0.54* 0.59* Previous Catheterization: 02/16: Successful PCI to LAD and LCx POBA to D1 in severe instent restenosis (underexpansion present at time of initial PCI) HERMES to mid LAD and proximal LAD HERMES to proximal OM1 and OM2 The indications, expected benefits, and potential risks of heart catheterization were reviewed in detail with the patient. The potential for , heart attack, stroke, kidney failure, hemorrhage, allergic reaction, vascular complications and infection were reviewed in detail. The possibility of stenting and other percutaneous intervention, with associated risk, was reviewed. The possible need for emergent coronary artery bypass surgery was reviewed. Alternatives were discussed and the patient's questions were answered in full. Following this discussion, the patient consented to the procedure and signed a form attesting to this, which is in the chart. Plan: Coronary Angio via right radial No C/I to long-term DAPT Moderate Sedation OK Braxton Whittaker MD 04/23/2019 documented in this encounter Miscellaneous Notes Plan of Care - Leti Manning RN - 04/25/2019 4:27 AM EST Problem: Patient Care Overview Goal: Plan of Care Review Outcome: Ongoing (Interventions Implemented as Appropriate) 04/24/1974404/25/19402 Plan of Care Review Progress -- progress toward functional goals as expected Coping/Psychosocial Plan Of Care Reviewed With patient -- OUTCOME EVALUATION NOTE: OUTCOME SUMMARY: Albina had a good shift. A/O, VSS, see flow sheet. NSR/atrial bigem on tele, see saved strips. Denies SOB. One episode of CP that resolved spontaneously. No other complaints of any discomfort. First dose of ranexa given. Slept well in between care. No other significant events this shift. Will continueto monitor. PLAN MOVING FORWARD: Med manage D/C planning as appropriate INDIVIDUALIZED FALL PREVENTION INTERVENTIONS: Patient-specific fall risk factors per assessment: [current deficits]: IV, tele, generalized weakness Assistance [level of assistance required for transfers and ambulation]: SBA Supervision [direct monitoring required during toileting and ADLs]: SBA Surveillance [continuous indirect monitoring]: Tele, call douglas within reach, purposeful rounding Patient-specific fall prevention interventions for sensory deficits provided, if applicable: [X] No CPG GOAL OUTCOME EVALUATION: Goal: Fall Prevention-Safe Patient Handling Outcome: Ongoing (Interventions Implemented as Appropriate) 04/24/1974404/24/19211304/25/19 040 Restraint Interventions Safety Promotion/Fall Prevention -- -- nonskid shoes/slippers when out of bed;safety round/check completed;fall prevention program maintained Daily Care Interventions Self-Care Promotion -- -- independence encouraged;BADL personal objects within reach;BADL personal routines maintained [place] Fall Risk History of Falling -- 0 -- Secondary Diagnosis -- 15 -- Ambulatory Aids -- 0 -- Intravenous Therapy/Heparin/Saline Lock -- 20 -- Gait/Transferring -- 10 -- Mental Status -- 0 -- Score -- 45 -- OTHER [place] Fall Risk High -- -- Positioning Body Position -- independent -- Activity Activity Type -- activity adjusted per tolerance -- Activity Assistance Provided -- independent -- Assistive Device Utilized -- none -- Goal: Infection Control Outcome: Ongoing (Interventions Implemented as Appropriate) 04/24/193 Safety Interventions Isolation Precautions standard precautions maintained Infection Prevention rest/sleep promoted;environmental surveillance performed Coping Strategies Supportive Measures active listening utilized Plan of Care - Natali Leonard RN - 04/24/2019 3:42 PM EST Problem: Patient Care Overview Goal: Plan of Care Review Outcome: Ongoing (Interventions Implemented as Appropriate) 04/24/19 0737 Coping/Psychosocial Plan Of Care Reviewed With patient OUTCOME SUMMARY: Pt., A&O, VS in doc flow, tele: SR/Atrial bigem, full report in chart. Pt., does continue to have intermittent chest pressure that quickly subsides, she also has some dizziness, but pt., encouragedto change positions slowly and call for help when needed. Metoprolol was decreased today, toleratingwell. Right radial site, WDL, CDI, +CMS. She is sitting up in bed comfortably. Family at the bedside. Call douglas within reach. Will continue to monitor. ?? PLAN MOVING FORWARD: Med manage/med changes and discharge planning as appropriate. ?? INDIVIDUALIZED FALL PREVENTION INTERVENTIONS: ?? Patient-specific fall risk factors per assessment: [current deficits]:?? Incisions, IV line, hospital environment, comorbidities, palpitations. ?? Assistance [level of assistance required for transfers and ambulation]:?? SBA ?? Supervision [direct monitoring required during toileting and ADLs]:?? eyes on. ?? Surveillance [continuous indirect monitoring]:? Tele, purposeful nurse rounding, call douglas within reach. ?? CPG GOAL OUTCOME EVALUATION:? ongoing Goal: Fall Prevention-Safe Patient Handling Outcome: Ongoing (Interventions Implemented as Appropriate) 04/24/19 0745 04/24/19 1000 04/24/19 1400 [place] Fall Risk History of Falling 0 -- -- Secondary Diagnosis 15 -- -- Ambulatory Aids 0 -- -- Intravenous Therapy/Heparin/Saline Lock 20 -- -- Gait/Transferring 10 -- -- Mental Status 0 -- -- Score 45 -- -- OTHER [place] Fall Risk High -- -- Restraint Interventions Safety Promotion/Fall Prevention -- -- activity supervised;fall prevention program maintained;nonskid shoes/slippers when out of bed;safety round/check completed Positioning Body Position independent -- -- Activity Activity Type -- up ad akil -- Activity Assistance Provided -- assistance, stand-by -- Assistive Device Utilized -- none -- Goal: Infection Control Outcome: Ongoing (Interventions Implemented as Appropriate) 04/24/19 0745 Safety Interventions Isolation Precautions standard precautions maintained Infection Prevention environmental surveillance performed Coping Strategies Supportive Measures active listening utilized;positive reinforcement provided;relaxation techniques promoted;verbalization of feelings encouraged Op Note - Maurilio Escobar II, MD - 04/23/2019 3:33 PM EST [facility] Operative Note RaadsalvadorAlbina Kamlesh April 23, 2019 [id number] Behavior Management Specialist - Preliminary Findings Procedures: coronary angiography left heart catheterization Technique: Seldinger via right radial artery. Heparin: 4,000U administered. Contrast: 40cc Omnipaque. Radiation: Fluoro time: 5.2 minutes, dose area product: 52,167 mGYcm2 and air kerma: 654 mGY. Findings: Hemodynamics: Syst Diast EDP a v m Ao 105 40 61 LV 116 7 Coronary Angiography: Right Dominant LM Normal. LAD Entire vessel - Stent Patent - Mild diffuse. Diagonal 2 - Ostial - 45%. Distal vessel moderate in size. LCX Mid - Stent Patent - Mild diffuse. OM1 - Ostial - Stent Patent - 35%. RCA Mid - Mild diffuse. Complications/Events: None The attending physician was present for the entire procedure. Dr. Maurilio Escobar M.D. performed the coronary angiography and left heart catheterization. Harley Borrero M.D. (Fellow) Maurilio Escobar M.D. documented in this encounter Plan of Treatment Upcoming Encounters Date Type Specialty Care Team Description 09/02/2022 Office Visit Cardiology Patrice Burkett MD [facility] [address] [place], [place] [address] (Wo rk) 11/25/2022 Office Visit Dermatology Kole Mccain MD [address] [facility] [place], [place] [address] (Wo rk) documented as of this encounter Procedures Procedure Name Priority Date/Time Associated Diagnosis Comme nts HC VENIPUNCTURE Routine 04/24/2019 9:28 Results f or this AM EST procedure are i n the results section. HC TRIGLYCERIDES Routine 04/24/2019 5:27 Results for this AM EST procedure are i n the results section. HC LDL CHOLESTEROL, Routine 04/24/2019 5:27 Resul ts for this DIRECT AM EST procedure are i n the results section. HC CHOLESTEROL Routine 04/24/2019 5:27 Results fo r this AM EST procedure are i n the results section. HC HEMOGLOBIN A1C Routine 04/24/2019 5:27 Results for this AM EST procedure are i n the results section. HC GLUCOSE FASTING Routine 04/24/2019 5:27 Result s for this AM EST procedure are i n the results section. HEMOGRAM Routine 04/23/2019 5:56 Results for this PM EST procedure are i n the results section. DIFFERENTIAL, Routine 04/23/2019 5:56 Results for this AUTOMATED PM EST procedure are i n the results section. HC PARTIAL Routine 04/23/2019 5:56 Results for this THROMBOPLASTIN TIME PM EST procedur e are in the results section. HC PROTHROMBIN TIME Routine 04/23/2019 5:56 Resul ts for this PM EST procedure are i n the results section. HC CBC,PLT & AUTO DIFF Routine 04/23/2019 5:56 PM EST HC THYROID STIMULATING Routine 04/23/2019 5:56 Re sults for this HORMONE, SERUM PM EST procedure are in the results section. HC PHOSPHORUS, SERUM Routine 04/23/2019 5:56 Resu lts for this PM EST procedure are i n the results section. HC PROBNP Routine 04/23/2019 5:56 Results for this PM EST procedure are i n the results section. HC MAGNESIUM, SERUM Routine 04/23/2019 5:56 Resul ts for this PM EST procedure are i n the results section. HC CALCIUM, SERUM Routine 04/23/2019 5:56 Results for this PM EST procedure are i n the results section. HEPATIC FUNCTION PANEL Routine 04/23/2019 5:56 Re sults for this PM EST procedure are i n the results section. BASIC METABOLIC PANEL Routine 04/23/2019 5:56 Res ults for this (NON-FASTING) PM EST procedure are in the results section. EKG 12-LEAD Routine 04/23/2019 5:25 Atherosclerosis of Result s for this PM EST [place] coronary artery proce dure are in of [place] heart, the results angina presence section. unspecified CARDIAC Routine 04/23/2019 3:05 Results for this CATHETERIZATION PM EST procedure ar e in the results section. documented in this encounter Results (ABNORMAL) Basic Metabolic Panel (non-fasting) (04/24/2019 9:28 AM EST) P athologist Signature Glucose Lvl 132 65 - 199 [facility] mg/dL [facility] Comment: Diabetes: >=200 mg/dL plus symp toms BUN 14 8 - 18 mg/dL [facility] Creatinine 0.76 0.70 - 1.20 mg/dL [facility] Sodium 144 135 - 145 mmol/L [facility] Potassium 3.6 3.5 - 5.0 mmol/L [facility] Comment: Please note: ??Patients with WBC >100,00 0 may have falsely elevated Potassium levels. ??For accurate Potassium quantif ication in these patients send serum separator tube (gold top) for subsequent determinations. ??Contact the Clinical Chemistry Laboratory if there are any qu estions. Chloride 109 (H) 98 - 107 mmol/L [facility] CO2 22 22 - 31 mmol/L [facility] Anion Gap 13 5 - 15 mmol/L [facility] Calcium 9.1 8.5 - 10.5 mg/dL [facility] Estimated GFR 77 >=60 mL/min/1.73 m?? [facility] Comment: The eGFR was calculated using the CKD-EP I equation. As with all creatinine based estimates of kidney function, eGFR values calculated with the CKD-EPI equation are not accurate in patients wi th acute kidney failure, extremes of body mass or the acutely ill. http://wutabout/[facility]kf eGFR 89 >=60 mL/min/1.73 m?? [facility] Comment: The eGFR was calculated using the CKD-EP I equation. As with all creatinine based estimates of kidney function, eGFR values calculated with the CKD-EPI equation are not accurate in patients wi th acute kidney failure, extremes of body mass or the acutely ill. http://wutabout/[facility] Specimen Anatomical Collection Method Collection Time Receive d Time (Source) Location / / Volume Laterality Blood specimen 04/24/2019 9:28 AM 019 9:35 (specimen) EST AM EST Resulting Agency Comment Spec In Lab Soha Fay MD CHEMISTRY ORDERABLES Performing Organization Address City/State/[place] [address] (ABNORMAL) Glucose, fasting (04/24/2019 5:27 AM EST) athologist Signature Glucose 103 (H) 65 - 99 [facility] Fasting mg/dL [facility] Comment: ?Fasting* Glucose Interpretive C riteria Normal ?65-99 mg/dL Impaired Fasting glucose ?100-125 mg/dL Consistent with Diabetes Mellitus ? >or= 126 mg/dL *Fasting is defined as no caloric intake for at least 8 hours In the absence of unequivocal hypergly cemia a plasma glucose value of >or= 126 mg/dL should be repeated on a subseq u day. Diagnosis and Classification of Diabetes Mellitus, Position Statement from the [place] [employer]. ??Diabete s Care, Volume 33, Supplement 1, May 2009 Specimen Anatomical Collection Method Collection Time Receive d Time (Source) Location / / Volume Laterality Blood specimen 04/24/2019 5:27 AM 019 6:10 (specimen) EST AM EST Resulting Agency Comment Spec In Lab Soha Fay MD CHEMISTRY ORDERABLES Performing Organization Address City/[facility]/ZIP [facility] Ph[place] Number [address] Triglyceride (04/24/2019 5:27 AM EST) athologist Signature Triglycerides 96 mg/dL [facility] Comment: Average Risk/Lower Risk: <150 mg/dL Borderline High Risk: 150-199 mg/dL High Risk: 200-499 mg/dL Very High Risk: >le=155 mg/dL Specimen Anatomical Collection Method Collection Time Receive d Time (Source) Location / / Volume Laterality Blood specimen 04/24/2019 5:27 AM 019 6:10 (specimen) EST AM EST Resulting Agency Comment Spec In Lab Soha Fay MD CHEMISTRY ORDERABLES Performing Organization Address City/[facility] [place] [address] HDL/Cholesterol Profile (04/24/2019 5:27 AM EST) athologist Signature Chol, Total 135 mg/dL [facility] Comment: Lower Risk: <200 mg/dL Average Risk: 200-239 mg/dL Higher Risk: >ro=682 mg/dL HDL 60 mg/dL [facility] Comment: Males: ?? Higher Risk: <40 mg/dL Females: ?? HIgher Risk: <50 mg/dL Chol/HDL Ratio 2.2 ratio [facility] Chol/HDL Interpretation See Note [facility] Comment: Lipid management should be guided by a p atient? s ASCVD risk, goals and preferences. ACC/AHA Guidelines recommend high intens ity statin if clinical ASCVD or LDL greater than or equal to 190 mg/dL. [email or web address]-HLL-Vwnrzccmd Measure LDL if Total Cholesterol minus H DL Cholesterol is greater than 220 mg/dL. Adults aged 40-75 with LDL 70-189 mg/dL should have their 10 year ASCVD risk estimated with the ACC/AHA ASCVD risk es timator http://tools.acc.org/XJANX-Vxnq-Zktnkhwv r/ Statin should be discussed if risk great er than or equal to 7.5% in non-diabetics. With diabetes, moderate i ntensity statin is recommended if risk less than 7.5%, high intensity if risk g reater than or equal to 7.5%. Annual lipid monitoring on statins is no t necessary. Lifestyle modification is a critical com ponent of ASCVD risk reduction. Specimen Anatomical Collection Method Collection Time Receive d Time (Source) Location / / Volume Laterality Blood specimen 04/24/2019 5:27 AM 019 6:10 (specimen) EST AM EST Resulting Agency Comment Spec In Lab Soha Fay MD CHEMISTRY ORDERABLES Performing Organization Address City/[facility]/ZIP Code Phon e Number [address] LDL Cholesterol, Direct (04/24/2019 5:27 AM EST) P athologist Signature LDL Chol 65 mg/dL [facility] Comment: Lowest Risk: <100 mg/dL Lower Risk: 100-129 mg/dL Borderline High Risk: 130-159 mg/dL High Risk: 160-189 mg/dL Very High Risk: >db=361 mg/dL Specimen Anatomical Collection Method Collection Time Receive d Time (Source) Location / / Volume Laterality Blood specimen 04/24/2019 5:27 AM 019 6:10 (specimen) EST AM EST Resulting Agency Comment Spec In Lab Soha Fay MD CHEMISTRY ORDERABLES Performing Organization Address City/[facility]/ZIP Code Phon e Number [address] Hemoglobin A1c (04/24/2019 5:27 AM EST) athologist Signature Hemoglobin A1C 5.1 4.3 - 5.6 [facility] Comment: Reference Range: 4.3 - 5.6% 5.7 - 6.4% - Increased Risk of Developin g Diabetes Mellitus >= 6.5% - Consistent with diagnosis of D iabetes Mellitus In the absence of hyperglycemia (i.e. pl asma glucose > 200 mg/dL) or classic symptoms of hyperglycemia a repeat measu rement of HbA1c should be performed on a separate sample to confirm the diagnos is. Diagnosis and Classification of Diabetes Mellitus, Diabetes Care 2013; 36: Suppl. 1, S67-74 Est Avg Gluc See note mg/dL [facility] Comment: Estimated Average Glucose not appropriat e for patients over 70 years of age. eAG equivalents for HbA1c percentages: HbA1c(%) ?eAG(mg/dL) 6.0 ?126 6.5 ?140 7.0 ?154 7.5 ?169 8.0 ?183 8.5 ?197 9.0 ?212 9.5 ?226 10.0 ? 240 Limitations: The eAG calculation has not been validated on women, individuals below 18 years old and above 70 years old, and individuals with hemoglobinopathies. Additional resources are available on ADA website. Jamar ESPINOZA, Palmer J, Collins R, et al. ??Tr anslating the A1C assay into estimated average glucose values. ??Diabetes Care 2008:31(8):0646-7396. Specimen Anatomical Collection Method Collection Time Receive d Time (Source) Location / / Volume Laterality Blood specimen 04/24/2019 5:27 AM 019 6:10 (specimen) EST AM EST Resulting Agency Comment Spec In Lab Soha Fay MD CHEMISTRY ORDERABLES Performing Organization Address City/State/[place] [address] (ABNORMAL) Differential, Automated (04/23/2019 5:56 PM EST) [facility] Method Time Signature Neutrophils % 90.8 % [facility] Neutr Abs (ANC) 7.81 (H) 1.70 - [facility] 6.10 [facility] x10(3)/[facility] LABORATORY Lymphocytes % 7.3 % [facility] Lymphocytes Abs 0.6 (L) 0.9 - 3.2 [facility] x10(3)/[facility] LABORATORY Monocytes % 0.9 % [facility] Monocyte Abs 0.1 (L) 0.3 - 0.9 [facility] x10(3)/[facility] LABORATORY Eosinophils % 0.5 % [facility] Eosinophils Abs 0.0 0.0 - 0.4 [facility] x10(3)/[facility] LABORATORY Basophils % 0.2 % [facility] Basophils Abs 0.0 0.0 - 0.1 [facility] x10(3)/[facility] LABORATORY Immature Gran % 0.30 % [facility] Comment: Immature granulocytes(IG's)percentage an d absolute count will include metamyelocytes, myelocytes, and promyelo cytes. Blood smears from CBCs yielding IG's will be scanned manually for concor dance. If this scan disagrees with the automated IG or if promyelocytes are not ed, a manual differential will be performed. Edith Gran Abs 0.03 0.00 - 0.04 x10(3)/[facility] MAR Y [facility] LABORATORY Specimen Anatomical Collection Method Collection Time Receive d Time (Source) Location / / Volume Laterality Blood specimen 04/23/2019 5:56 PM 019 6:03 (specimen) EST PM EST Resulting Agency Comment Spec In Lab Anneliese Oneal MD HEMATOLOGY ORDERABLES Performing Organization Address City/State/[place] [address] Hemogram (04/23/2019 5:56 PM EST) athologist Signature WBC 8.6 4.0 - 9.5 [facility] LABORATORY RBC 4.47 4.00 - MARGOTH MARIANELA 5.21 [facility] x10(6)/[facility] LABORATORY Hemoglobin 13.8 11.7 - [facility] 15.5 gm/dL [facility] LABORATORY Hematocrit 40.6 35.7 - [facility] 45.8 % [facility] LABORATORY MCV 90.8 82.6 - [facility] 94.4 [facility] LABORATORY MCH 30.9 27.1 - MARGOTH MARIANELA 32.0 pg [facility] LABORATORY MCHC 34.0 31.7 - [facility] 35.0 gm/dL [facility] LABORATORY Platelets 246 145 - 357 [facility] x10(3)/[facility] LABORATORY RDWSD 45.2 37.0 - [facility] MARIANEL[facility] 46.0 [facility] LABORATORY RDWCV 13.4 11.5 - [facility] 14.1 % [facility] LABORATORY MPV 9.8 7.6 - 12.9 [facility] LABORATORY nRBC % Auto 0.0 % [facility] LABORATORY nRBC Abs Auto 0.000 0.000 - [facility] MARIANELA 0.000 [facility] x10(3)/[facility] LABORATORY Specimen Anatomical Collection Method Collection Time Receive d Time (Source) Location / / Volume Laterality Blood specimen 04/23/2019 5:56 PM 019 6:03 (specimen) EST PM EST Resulting Agency Comment Spec In Lab Anneliese Oneal MD HEMATOLOGY ORDERABLES Performing Organization Address City/State/[place] [address] (ABNORMAL) APTT (04/23/2019 5:56 PM EST) athologist Signature PTT 55 (H) 25 - 37 sec [facility] LABORATORY Comment: The PTT is NOT appropriate for heparin m onitoring. Use the Anti-Xa level for heparin monitoring (HEP UFH) or LMWH mon itoring (HEP LMW). A PTT less than 37 seconds generally indicates adequate hem ostasis. Specimen Anatomical Collection Method Collection Time Receive d Time (Source) Location / / Volume Laterality Blood specimen 04/23/2019 5:56 PM 019 6:03 (specimen) EST PM EST Resulting Agency Comment Spec In Lab Soha Fay MD HEMATOLOGY ORDERABLES Performing Organization Address City/[facility]/ZIP Code Phon e Number [place] [phone] (ABNORMAL) Prothrombin Time (04/23/2019 5:56 PM EST) P athologist Signature PT 13.3 (H) 9.4 - 12.5 [facility] LABORATORY INR 1.2 [facility] LABORATORY Comment: An INR <2.0 indicates adequate procoagul ant activity for hemostasis in most patients without underlying bleeding dis orders, though the INR may not adequately reflect hemostatic capacity i n patients with liver disease and synthetic impairment. The recommended ta rget INR range for therapeutic anticoagulation is 2.0 ? 3.0 for most applications, though lower and higher ranges may be appropriate depending on c linical circumstances. Specimen Anatomical Collection Method Collection Time Receive d Time (Source) Location / / Volume Laterality Blood specimen 04/23/2019 5:56 PM 019 6:03 (specimen) EST PM EST Resulting Agency Comment Spec In Lab Soha Fay MD HEMATOLOGY ORDERABLES Performing Organization Address City/[facility]/[place] [address] Hepatic Function Panel (04/23/2019 5:56 PM EST) P athologist Signature Total Protein 7.7 6.1 - 8.0 [facility] gm/dL [facility] LABORATORY Albumin 4.5 3.2 - 5.2 [facility] gm/dL [facility] LABORATORY AST 25 0 - 30 [facility] unit/L [facility]ORY ALT 18 0 - 30 [facility] unit/L [facility] LABORATORY Alk Phos 95 35 - 105 [facility] unit/L [facility] LABORATORY Total 0.7 0.2 - 1.3 [facility] Bilirubin mg/dL [facility] LABORATORY Bili, Direct 0.2 0.0 - 0.3 [facility] mg/dL [facility] LABORATORY Specimen Anatomical Collection Method Collection Time Receive d Time (Source) Location / / Volume Laterality Blood specimen 04/23/2019 5:56 PM 019 6:03 (specimen) EST PM EST Resulting Agency Comment Spec In Lab Soha Fay MD CHEMISTRY ORDERABLES Performing Organization Address City/State/ZIP Code Phon e Number [address] (ABNORMAL) pro-Brain Natriuretic Peptide (04/23/2019 5:56 PM EST) P athologist Signature ProBNP 2,261 (H) <=125 [facility] pg/mL [facility] LABORATORY Specimen Anatomical Collection Method Collection Time Receive d Time (Source) Location / / Volume Laterality Blood specimen 04/23/2019 5:56 PM 019 6:03 (specimen) EST PM EST Resulting Agency Comment Spec In Lab Soha Fay MD CHEMISTRY ORDERABLES Performing Organization Address City/[facility]/ZIP Code Phon e Number [address] TSH (04/23/2019 5:56 PM EST) P athologist Signature TSH 0.78 0.27 - 4.20 [facility] mcIU/mL [facility] LABORATORY Specimen Anatomical Collection Method Collection Time Receive d Time (Source) Location / / Volume Laterality Blood specimen 04/23/2019 5:56 PM 019 6:03 (specimen) EST PM EST Resulting Agency Comment Spec In Lab Soha Fay MD CHEMISTRY ORDERABLES Performing Organization Address City/[facility]/ZIP Code Phon e Number [address] Phosphorus (04/23/2019 5:56 PM EST) P athologist Signature Phosphorus 3.3 2.5 - 4.5 [facility] mg/dL [facility] LABORATORY Specimen Anatomical Collection Method Collection Time Receive d Time (Source) Location / / Volume Laterality Blood specimen 04/23/2019 5:56 PM 019 6:03 (specimen) EST PM EST Resulting Agency Comment Spec In Lab Soha Fay MD CHEMISTRY ORDERABLES Performing Organization Address City/[facility]/ZIP Code Phon e Number [address] Magnesium (04/23/2019 5:56 PM EST) athologist Signature Magnesium 0.87 0.69 - 1.07 [facility] mmol/L [facility] LABORATORY Specimen Anatomical Collection Method Collection Time Receive d Time (Source) Location / / Volume Laterality Blood specimen 04/23/2019 5:56 PM 019 6:03 (specimen) EST PM EST Resulting Agency Comment Spec In Lab Soha Fay MD CHEMISTRY ORDERABLES Performing Organization Address City/[facility]/ZIP Code Phon e Number [address] Calcium (04/23/2019 5:56 PM EST) athologist Signature Calcium 9.4 8.5 - 10.5 [facility] mg/dL [facility] LABORATORY Specimen Anatomical Collection Method Collection Time Receive d Time (Source) Location / / Volume Laterality Blood specimen 04/23/2019 5:56 PM 019 6:03 (specimen) EST PM EST Resulting Agency Comment Spec In Lab Soha Fay MD CHEMISTRY ORDERABLES Performing Organization Address City/[facility]/[place] [address] (ABNORMAL) Basic Metabolic Panel (non-fasting) (04/23/2019 5:56 PM EST) P athologist Signature Glucose Lvl 182 65 - 199 [facility] mg/dL [facility] LABORATORY Comment: Diabetes: >=200 mg/dL plus symp toms BUN 13 8 - 18 mg/dL [facility] LABORATORY Creatinine 0.78 0.70 - 1.20 mg/dL [facility] LABORATORY Sodium 141 135 - 145 mmol/L [facility] LABORATORY Potassium 4.2 3.5 - 5.0 mmol/L [facility] LABORATORY Comment: Please note: ??Patients with WBC >100,00 0 may have falsely elevated Potassium levels. ??For accurate Potassium quantif ication in these patients send serum separator tube (gold top) for subsequent determinations. ??Contact the Clinical Chemistry Laboratory if there are any qu estions. Chloride 107 98 - 107 mmol/L [facility] LABORATORY CO2 20 (L) 22 - 31 mmol/L [facility] LABORATORY Anion Gap 14 5 - 15 mmol/L [facility] LABORATORY Calcium 9.4 8.5 - 10.5 mg/dL [facility] LABORATORY Estimated GFR 74 >=60 mL/min/1.73 m?? [facility] LABORATORY Comment: The eGFR was calculated using the CKD-EP I equation. As with all creatinine based estimates of kidney function, eGFR values calculated with the CKD-EPI equation are not accurate in patients wi th acute kidney failure, extremes of body mass or the acutely ill. [email or web address]/[facility] ADAnkf eGFR 86 >=60 mL/min/1.73 m?? [facility] LABORATORY Comment: The eGFR was calculated using the CKD-EP I equation. As with all creatinine based estimates of kidney function, eGFR values calculated with the CKD-EPI equation are not accurate in patients wi th acute kidney failure, extremes of body mass or the acutely ill. http://wutabout/DHnkf Specimen Anatomical Collection Method Collection Time Receive d Time (Source) Location / / Volume Laterality Blood specimen 04/23/2019 5:56 PM 019 6:03 (specimen) EST PM EST Resulting Agency Comment Spec In Lab Soha Fay MD CHEMISTRY ORDERABLES Performing Organization Address City/State/[place] [address] EKG 12 Lead (04/23/2019 5:25 PM EST) Component Value Ref Range Test Analysis Performed Pathologis t Method Time At Signature Ventricular rate 76 BPM MUSE SYSTEM Atrial Rate 76 BPM MUSE SYSTEM P-R Interval 154 ms MUSE SYSTEM QRS Duration 86 ms MUSE SYSTEM Q-T Interval 380 ms MUSE SYSTEM QTC Calculated 427 ms MUSE SYSTEM (Bezet) Calculated P [place] 60 degrees MUSE SYSTEM Calculated R [place] 43 degrees MUSE SYSTEM Calculated T [place] 69 degrees MUSE SYSTEM INTERPRETATION Sinus rhythm with frequent P remature ventricular complexes in a pattern of bigeminy MUSE SYSTEM Abnormal ECG When compared with ECG of 17-MAR-2019 09:25, Premature ventricular complexes are now Present Confirmed by MD Thomas, Soha Bonner ([id number]) on 04/24/2019 10:0 9:16 AM Specimen Anatomical Collection Method Collection Time Receive d Time (Source) Location / / Volume Laterality 04/23/2019 5:25 PM 9 EST 10:09 AM EST Soha Fay MD ECG ORDERABLES Performing Organization Address City/State/ZIP Code Phon e Number MUSE SYSTEM CARDIAC CATHETERIZATION (04/23/2019 3:05 PM EST) Anatomical Region Laterality Modality Other Specimen (Source) Anatomical Location Collection Method / Collectio n Time Received Time / Laterality Volume Narrative 04/23/2019 3:39 PM EST ?[facility] ? Cardiac Cathete rization/Intervention Report ? Patient Name: Hemond, Albina R. ? Procedure Date: 04/23/2019 ? A #: [id number] ? Primary Physician: Shawn, Maurilio W ? Case #: [id number] ? File Name: [id number] ? Catheterization Order Number: [id number] ? [facility] ? Final Report [place], [place] ? Patient Name: ? Albina R. Hemo nd ? ID#: ?[id number] ? : ?1945 ? Procedure Date: ? Arjun 13, 20 19 ?Case #: ? [id number] ? Room: ? 1 ? Case Physician: ? Maurilio W Nil es, M.D. ?Start: ?14:40 ?Fellow: ? Harley Borrero M.D. ?Admission: ??04/23/2019 ? Procedures: ?* Coronary Angiography ?* Left Heart Catheterization ? History ?Albina Baptiste is a 73 year o ld woman. She has hypertension. The ?patient's smoking status is Nev er. She has hypercholesterolemia managed ?with lipid therapy. The patient has a prior history of coronary artery ?disease. She had a recent coron susannah intervention procedure. Prior to the ?initiation of this procedure, t he patient was designated as ASA Class ?III. The CSHA clinical frailty scale is 3: Managing Well. ? Diagnostic Tests: ?Prior Coronary Angiography: ? Prior coronary angiograp hy was performed on 02/15/2019 and showed ? obstructive CAD. LV ejec tion fraction within 6 months is 2%. ?Electrocardiography: ? EKG was assessed by ECG. EKG was Abnormal. EKG showed other ? abnormality. ?Stress or Imaging Studies: ? A stress test with SPECT imaging was performed on 04/14/2019 and was ? Positive with Intermedia te results. ?Medications Prior to Procedure: ? Beta Cedrick, Long Actin g Nitrate and Statin. ? Indications for Diagnostic Cath: ?The priority of the diagnostic procedure was Urgent. The indication for ?the earth science laboratory technician visit is other ind ication. Chest pain symptom assessment ?was: Atypical Angina. ? Technique: ?A 6 SLFr sheath was inserted in the right radial artery utilizing the ?Seldinger technique. The left c oronary artery was injected utilizing a ?5Fr JL 3.5 catheter. A 5Fr JR 4 catheter was used to inject the right ?coronary artery. Left ventricul ar pressure was performed with a 5Fr JR 4 ?catheter. 4,000 units of hepari n were administered. A total of 100cc of ?Omnipaque were opened, 40cc of Omnipaque were administered and 60cc of ?Omnipaque were wasted. Radiatio n: Fluoro time was 5.2 minutes, dose area ?product was 52,167 mGYcm2 and a ir kerma was 654 mGY. See the case log for ?additional details. ?The patient received the follow ing medications prior to and during the ?procedure: ? Unfractionated Heparin a nd Ticagrelor. ? Hemodynamics: ?Left Heart Pressures ? Resting: ? Syst D iast ? EDP ?a ?v ? m ?Ao 105 ?? 40 ?61 ?LV 116 ? 7 ? Coronary Angiography: ?Dominance: Right ?Left Main ? The left main was normal , free of disease. ?Left Anterior Descending ? There was mild diffuse ( <=25% stenosis) disease of the entire vessel ? segment of the left ante rior descending artery (LAD). ??The ? previously placed stent is patent. ? There was a 45% single d iscrete stenosis of the ostial segment of ? the second diagonal bran ch (Diagonal 2) of the LAD. ??The distal ? vessel was moderate in s ize. ?Left Circumflex ? There was mild diffuse ( <=25% stenosis) disease of the mid segment ? of the left circumflex a rtery (LCX). ??The previously placed stent is ? patent. ? There was a 35% single d iscrete stenosis of the ostial segment of ? the first obtuse margina l branch (OM1) of the LCX. ??The previously ? placed stent is patent. ?Right Coronary Artery ? There was mild diffuse ( <=25% stenosis) disease of the mid segment ? of the right coronary ar freedom (RCA). ? Vascular Access: ?Vascular Access Management: ? Mechanical Compression o f the right radial artery access site was ? performed. ? Conclusions: ?* Nonobstructive coronary arter y disease ? Complications/Events: ?The patient had no complication s during these procedures. ?The attending physician was presen t for the entire procedure. ?Dr. Maurilio Escobar M.D. was pr esent during the moderate sedation ?intraservice time as documented by the sedation nurse. ??Case time = 00:21. ?Dr. Maurilio Escobar M.D. perfor med the coronary angiography and left ?heart catheterization. ? Maurilio Escobar M.D. ? Electronically Signed by: Maurilio delaney M.D. ? Report Finalized: 04/23/2019 ??15:32 ? Report Last Ammended: 05/28/2019 ??13:55 ? Procedure Note Maurilio Escobar II, MD - 05/28/2019Fo rmatting of this note might be different from the original. [facility] Cardiac Catheterization/Intervention Re port Patient Name: Sree Baptisteice TadeoBety Procedure Date: 04/23/2019 A #: [id number] Primary Physician: Maurilio Escobar Case #: [id number] File Name: [id number] Catheterization Order Number: [id number] [facility] Final Report [place], [place] Patient Name: Albina Baptiste ID#: [id number] : 1945 Procedure Date: April 23, 2019 Case # : [id number] Room: 1 Case Physician: Maurilio Escobar M.D. Start: 14:40 Fellow: Harley Borrero M.D. Admission: Procedures: * Coronary Angiography * Left Heart Catheterization History Albina Baptiste is a 73 year old woman . She has hypertension. The patient's smoking status is Never. She has hypercholesterolemia managed with lipid therapy. The patient has a p rior history of coronary artery disease. She had a recent coronary inte rvention procedure. Prior to the initiation of this procedure, the patie nt was designated as ASA Class III. [facility] clinical frailty scale is 3: Managing Well. Diagnostic Tests: Prior Coronary Angiography: Prior coronary angiography was performe d on 02/15/2019 and showed obstructive CAD. LV ejection fraction w ithin 6 months is 2%. Electrocardiography: EKG was assessed by ECG. EKG was Abnorm al. EKG showed other abnormality. Stress or Imaging Studies: A stress test with SPECT imaging was pe rformed on 04/14/2019 and was Positive with Intermediate results. Medications Prior to Procedure: Beta Cedrick, Long Acting Nitrate and S tatin. Indications for Diagnostic Cath: The priority of the diagnostic procedur e was Urgent. The indication for the earth science laboratory technician visit is other indication. Chest pain symptom assessment was: Atypical Angina. Technique: A 6 SLFr sheath was inserted in the rig ht radial artery utilizing the Seldinger technique. The left coronary artery was injected utilizing a 5Fr JL 3.5 catheter. A 5Fr JR 4 cathete r was used to inject the right coronary artery. Left ventricular press ure was performed with a 5Fr JR 4 catheter. 4,000 units of heparin were a dministered. A total of 100cc of Omnipaque were opened, 40cc of Omnipaqu e were administered and 60cc of Omnipaque were wasted. Radiation: Fluor o time was 5.2 minutes, dose area product was 52,167 mGYcm2 and air kerma was 654 mGY. See the case log for additional details. The patient received the following medi cations prior to and during the procedure: Unfractionated Heparin and Ticagrelor. Hemodynamics: Left Heart Pressures Resting: Syst Diast EDP a v m Ao 105 40 61 LV 116 7 Coronary Angiography: Dominance: Right Left Main The left main was normal, free of disea se. Left Anterior Descending There was mild diffuse (<=25% stenosis) disease of the entire vessel segment of the left anterior descending artery (LAD). The previously placed stent is patent. There was a 45% single discrete stenosi s of the ostial segment of the second diagonal branch (Diagonal 2) of the LAD. The distal vessel was moderate in size. Left Circumflex There was mild diffuse (<=25% stenosis) disease of the mid segment of the left circumflex artery (LCX). Th e previously placed stent is patent. There was a 35% single discrete stenosi s of the ostial segment of the first obtuse marginal branch (OM1) of the LCX. The previously placed stent is patent. Right Coronary Artery There was mild diffuse (<=25% stenosis) disease of the mid segment of the right coronary artery (RCA). Vascular Access: Vascular Access Management: Mechanical Compression of the right rad ial artery access site was performed. Conclusions: * Nonobstructive coronary artery diseas e Complications/Events: The patient had no complications during these procedures. The attending physician was present for the entire procedure. Dr. Maurilio Escobar M.D. was present during the moderate sedation intraservice time as documented by the sedation nurse. Case time = 00:21. Dr. Maurilio Escobar M.D. performed t he coronary angiography and left heart catheterization. Maurilio Escobar M.D. Electronically Signed by: Maurilio delaney M.D. Report Finalized: 04/23/2019 15:32 Report Last Ammended: 05/28/2019 13:55 Soha Fay MD CARDIAC CATH ORDERABLES documented in this encounter Visit Diagnoses Not on filedocumented in this encounter Admitting Diagnoses Diagnosis Unstable angina Intermediate coronary syndrome documented in this encounter Administered Medications Inactive Administered Medications - up to 3 most recent administrations Medication Order MAR Action Action Date Dose Rate Site acetaminophen (Tylenol) tablet Given 04/24/2019 6:56 PM EST 1,00 0 mg 1,000 mg 1,000 mg, Oral, EVERY 6 HOURS PRN, Starting on Fri04/23/19 at 1645, Until 04/25/19 at 1534, Pain, Maximum dose of acetaminophen is 4000 mg from all sources in 24 hours., Routine aspirin EC tablet 81 mg Given 04/25/2019 8:48 AM EST 81 mg 81 mg, Oral, DAILY, First dose on Fri04/24/19 at 0900, Until Discontinued, Routine Given 04/24/2019 8:21 AM EST 81 mg budesonide-formoterol (SYMBICORT) Given 04/25/2019 8:48 AM EST 2 Inhalation 160-4.5 mcg/actuation inhaler 2 Inhalation 2 Inhalation, Inhalation, 2 TIMES DAILY, First dose (after last modification) on Fri04/23/19 at 2100, Until Discontinued, Alternative to advair Given 04/24/2019 9:04 PM EST 2 Inhalation Given 04/24/2019 8:21 AM EST 2 Inhalation cycloSPORINE (RESTASIS) 0.05 % ophthalmic Given 04/24/2019 9:05 PM EST 1 drop emulsion 1 drop 1 drop, Both Eyes, NIGHTLY, First dose on Fri04/23/19 at 2100, Until Discontinued, Routine enoxaparin (LOVENOX) injection 40 mg Given 04/24/2019 9:06 PM EST 40 mg 40 mg, Subcutaneous, NIGHTLY, First dose on Fri04/23/19 at 2100, Until Discontinued, Routine Given 04/23/2019 8:07 PM EST 40 mg famotidine (Pepcid) tablet 20 mg Given 04/25/2019 8:48 AM EST 20 mg 20 mg, Oral, DAILY, First dose on Fri04/23/19 at 1715, Until Discontinued Given 04/24/2019 8:21 AM EST 20 mg Given 04/23/2019 6:14 PM EST 20 mg fentaNYL 50 mcg/mL multi-dose injection Given 04/23/2019 2:38 PM EST 25 mcg ONCE PRN, Starting on Fri04/23/19 at 1438, Until Fri04/23/19 at 1505, Intra-Operative (Intra-Procedure), Routine fluticasone propionate (FLONASE) 50 Given 04/24/2019 9:04 PM EST 2 sprays mcg/actuation nasal spray 2 spray 2 spray, Each Nare, NIGHTLY, First dose on Fri04/23/19 at 2100, Until Discontinued, Routine Given 04/23/2019 8:08 PM EST 2 sprays iohexol (OMNIPAQUE) 350 mg/mL solution Given 04/23/2019 3:01 PM EST 40 mLs ONCE PRN, Starting on Fri04/23/19 at 1501, Until Fri04/23/19 at 1505, Cath (Intra-Procedure), Routine levothyroxine (Synthroid) tablet 75 mcg Given 04/25/2019 6:19 AM EST 75 mcg 75 mcg, Oral, DAILY, First dose on 04/24/19 at 0600, Until Discontinued, Routine Given 04/24/2019 5:19 AM EST 75 mcg methylPREDNISolone sodium succinate (PF) Given 04/23/2019 2:34 P M EST 100 mg (SOLU-Medrol) injection ONCE PRN, Starting on Fri04/23/19 at 1434, Until Fri04/23/19 at 1505, Cath (Intra-Procedure), Routine metoprolol tartrate (Lopressor) tablet 12.5 Given 04/11 12:50 PM EST 12.5 mg mg 12.5 mg, Oral, EVERY 6 HOURS SCHEDULED, First dose (after last modification) on 04/24/19 at 1200, Until Discontinued, Routine Given 04/25/2019 6:21 AM EST 12.5 mg Given 04/25/2019 12:03 AM EST 12.5 mg midazolam (PF) (VERSED) multi-dose injec tion Given 04/23/2019 2:38 PM EST 1 mg ONCE PRN, Starting on Fri04/23/19 at 1438, Until Fri04/23/19 at 1505, Cath (Intra-Procedure), Routine montelukast (Singulair) tablet 10 mg Given 04/24/2019 9:06 PM EST 10 mg 10 mg, Oral, NIGHTLY, First dose on Fri04/23/19 at 2100, Until Discontinued, Routine Given 04/23/2019 8:08 PM EST 10 mg nitroGLYcerin 100 mcg/mL intracoronary Given 04/23/2019 2:41 PM EST 150 mcg dilution ONCE PRN, Starting on Fri04/23/19 at 1441, Until Fri04/23/19 at 1505, Cath (Intra-Procedure), Routine ranolazine ER (Ranexa) tablet 500 mg Given 04/25/2019 8:48 AM EST 500 mg 500 mg, Oral, 2 TIMES DAILY, First dose on Fri04/24/19 at 2100, Until Discontinued, DO NOT CRUSH OR OPEN. Baseline EKG required before administration., Routine, Has baseline EKG been obtained? Yes Given 04/24/2019 9:59 PM EST 500 mg rosuvastatin (Crestor) tablet 5 mg Given 04/24/2019 9:06 PM EST 5 mg 5 mg, Oral, NIGHTLY, First dose on Fri04/23/19 at 2100, Until Discontinued, Routine Given 04/23/2019 8:08 PM EST 5 mg sodium chloride 0.9 % (flush) flush 5 mL Given 04/25/2019 8:48 AM EST 5 mLs 5 mL, Intravenous, 2 TIMES DAILY, First dose on Fri04/23/19 at 2100, Until Discontinued, Routine Given 04/24/2019 9:07 PM EST 5 mLs Given 04/24/2019 8:21 AM EST 5 mLs ticagrelor (Brilinta) tablet 90 mg Given 04/25/2019 8:48 AM EST 90 mg 90 mg, Oral, 2 TIMES DAILY, First dose on Fri04/23/19 at 2100, Until Discontinued, After initial loading dose of aspirin (usually 325 mg), use ticagrelor with daily maintenance dose of aspirin of 81 mg , Routine, After the initial loading dose of aspirin (usually 325 mg), use ticagrelor with a daily maintenance dose of aspirin 81 mg. Is this patient on 81 mg of aspirin? Yes Given 04/24/2019 9:06 PM EST 90 mg Given 04/24/2019 8:21 AM EST 90 mg verapamil (ISOPTIN) injection Given 04/23/2019 2:41 PM EST 2.5 mg ONCE PRN, Starting on Fri04/23/19 at 1441, Until Fri04/23/19 at 1505, Administer over 2 Minutes, Cath (Intra-Procedure) documented in this encounter Active and Recently Administered Medications Times are shown in EST. Scheduled Medication Order 04/23/2019 04/24/2019 04/25/2019 aspirin EC tablet 81 mg 820 (Given - Provider: Natali Leonard, RN) 0848 (Given - Provider: Natali Leonard RN) 81 mg, Oral, DAILY, First dose on Fri at 0900, Until Discontinued, Routine budesonide-formoterol (SYMBICORT) 160-4.5 mcg/actuatio n inhaler 2 Inhalation 2006 (Given - Provider: Anthony Burns RN) 820 (Given - Provider: Natali Leonard RN)2103 (Given - Provider: Leti Manning, RN) 08 (Given - Provider: Natali Leonard, LONNIE) 2 Inhalation, Inhalation, 2 TIMES DAILY, First dose on Fri04/23/19 at 2100, Until Discontinued, Alternative to advair cycloSPORINE (RESTASIS) 0.05 % ophthalmic emulsion 1 d rop 2099 (Not Given - Provider: Anthony Burns RN - Reason: Patient/family refused) 2104 (Given - Provider: Leti Manning, RN) 1 drop, Both Eyes, NIGHTLY, First dose o n Fri04/23/19 at 2100, Until Discontinued, Routine enoxaparin (LOVENOX) injection 40 mg 2006 (Given - Provider: Anthony Burns RN) 2105 (Given - Provider: Leti Manning, RN) 40 mg, Subcutaneous, NIGHTLY, First dose on Fri04/23/19 at 2100, Until Discontinued, Routine famotidine (Pepcid) tablet 20 mg 1813 (Given - Provide r: Natali Leonard RN) 820 (Given - Provider: Natali Leonard RN) 0848 (Given - Provider: Natali Leonard RN) 20 mg, Oral, DAILY, First dose on Fri04/23/19 at 1715, Until Di scontinued fluticasone propionate (FLONASE) 50 mcg/actuation nasa l spray 2 spray 2007 (Given - Provider: Anthony Burns RN) 2103 (Given - Provider: Leti Manning RN) 2 spray, Each Nare, NIGHTLY, First dose on Fri04/23/19 at 2100, Until Discontinued, Routine isosorbide mononitrate CR (Imdur) tablet 30 mg (CANCELED) 518 (Given - Provider: Anthony Burns RN) 30 mg, Oral, EVERY MORNING, First dose o n 04/24/19 at 0600, Until Discontinued, DO NOT CRUSH OR OPEN, Routine levothyroxine (Synthroid) tablet 75 mcg 518 (Given - Provider: Anthony Burns RN) 618 (Given - Provider: Leti Manning , RN) 75 mcg, Oral, DAILY, First dose on Sat 1 06/25/18 at 0600, Until Discontinued, Routine metoprolol tartrate (Lopressor) tablet 12.5 mg 1214 (Given - Provider: Natali Leonard RN)1858 (Not Given - Provider: Natali Leonard RN - Reason: See comment - Comment: map 58, pt., BP low, she states she is a little dizzy, held.) 0003 (Given - Provider: Leti Manning RN)0621 (Given - Provider: Leti Manning RN)1250 (Given - Provider: Natali Leonard RN) 12.5 mg, Oral, EVERY 6 HOURS SCHEDULED, First dose on Fri04/24/19 at 1200, Until Discontinued, Routine metoprolol tartrate (Lopressor) tablet 25 mg (CANCELED ) 1800 (Not Given - Provider: Natali Leonard RN - Reason: See comment - Comment: BP 101/39 and 90s/30s,pt., was nervous to take, made aware.)2315 (Given - Provider: Anthony Burns RN) 05 (Given - Provider: Anthony Burns RN) 25 mg, Oral, EVERY 6 HOURS SCHEDULED, Fi rst dose on Fri04/23/19 at 1800, Until Discontinued, Routine montelukast (Singulair) tablet 10 mg 2007 (Given - Provider: Anthony Burns, LONNIE) 2105 (Given - Provider: Leti Manning RN) 10 mg, Oral, NIGHTLY, First dose on Fri04/23/19 at 2100, Until Discontinued, Routine potassium chloride ER (K-Dur/Klor-Con) tablet 40 mEq (COMPLE JUAN M) 1216 (Given - Provider: Natali Leonard, LONNIE) 40 mEq, Oral, ONCE, 1 dose, 04/24/19 at 1230, 20 mEq tablet may be dissolved in water for administration, Routine ranolazine ER (Ranexa) tablet 500 mg 215 9 (Given - Provider: Leti Manning RN) 0848 (Given - Provider: Natlai sierra, LONNIE) 500 mg, Oral, 2 TIMES DAILY, First dose on 04/24/19 at 2100, Until Discontinued, DO NOT CRUSH OR OPEN. Baseline EKG required before administration., Routine rosuvastatin (Crestor) tablet 5 mg 2007 (Given - Provider: Krystin Burns RN) 2105 (Given - Provider: Leti Manning, LONNIE) 5 mg, Oral, NIGHTLY, First dose on Fri06/24/18 at 2100, Until Discontinued, Routine sodium chloride 0.9 % (flush) flush 5 mL 2099 (Not Giv en - Provider: Anthony Burns RN - Reason: Contraindicated) 820 (Given - Provider: Natali Leonard RN)2106 (Given - Provider: Leti Manning RN) 0848 (Given - Provider: Natali Leonard, LONNIE) 5 mL, Intravenous, 2 TIMES DAILY, First dose on Fri04/23/19 at 2100, Until Discontinued, Routine ticagrelor (Brilinta) tablet 90 mg 2007 (Given - Provider: Krystin Burns RN) 820 (Given - Provider: Natali Leonard, LONNIE)2105 (Given - Provider: Leti Manning, LONNIE) 0848 (Given - Provider: Natali sierra, LONNIE) 90 mg, Oral, 2 TIMES DAILY, First dose o n Fri04/23/19 at 2100, Until Discontinued, After initial loading dose of aspirin (usually 325 mg), use ticagrelor with daily maintenance dose of aspirin of 81 mg , Routine Continuous Medication Order 04/23/2019 04/24/2019 04/25/2019 sodium chloride 0.9% infusion () 1530 (New Bag - Provider: Argentina Abel RN) 100 mL/hr, at 100 mL/hr, Intravenous, CO NTINUOUS, Starting Fri04/23/19 at 1545, Until Fri04/23/19 at 1844, Recovery (Recovery-Hospital Unit) PRN Medication Order 04/23/2019 04/24/2019 04/25/2019 acetaminophen (Tylenol) tablet 1,000 mg 1856 (Given - Provider: Natali Leonard, LONNIE) 1,000 mg, Oral, EVERY 6 HOURS PRN, Start ing Fri04/23/19 at 1645, Until Fri04/25/19 at 1534, Pain, Maximum dose of acetaminophen is 4000 mg from all sources in 24 hours., Routine fentaNYL 50 mcg/mL multi-dose injection (CANCELED) 143 8 (Given - Provider: Kacey Zavala) ONCE PRN, Starting Fri04/23/19 at 1438, Until Fri04/23/19 at 1505, Intra- Operative (Intra-Procedure), Routine iohexol (OMNIPAQUE) 350 mg/mL solution (CANCELED) 1501 (Given - Provider: Maurilio Escobar II, MD) ONCE PRN, Starting Fri04/23/19 at 1501, Until Fri04/23/19 at 1505, Cath (Intra-Procedure), Routine lidocaine (XYLOCAINE) 10 mg/mL (1 %) injection 3 mg 3 mg (0.3 mL), Subcutaneous, ONCE PRN, 1 dose, Starting Fri04/23/19 at 1646, Until Fri04/25/19 at 1534, for discomfort with PIV insertion, Routine methylPREDNISolone sodium succinate (PF) (SOLU-Medrol) injection (CANCELED) 1434 (Given - Provider: Kacey Zavala) ONCE PRN, Starting Fri04/23/19 at 1434, Until Fri04/23/19 at 1505, Cath (Intra-Procedure), Routine midazolam (PF) (VERSED) multi-dose injection (CANCELED ) 1438 (Given - Provider: Kacey Zavala) ONCE PRN, Starting Fri04/23/19 at 1438, Until Fri04/23/19 at 1505, Cath (Intra-Procedure), Routine nitroGLYcerin (Nitrostat) disintegrating tablet 0.4 mg 0.4 mg, Sublingual, EVERY 5 MIN PRN, Sta rting Fri04/23/19 at 1646, Until 04/25/19 at 1534, Chest pain, May repeat every 5 minutes for a total of three doses. Notify provider if chest pain not relie brody with nitroglycerin. Do not administe r nitroglycerin if the patient has received or taken phosphodiesterase (PDE-5) inhibitors such as sildenafil, tadalafil or vardenafil within the last 24 to 72 hours., Routine nitroGLYcerin 100 mcg/mL intracoronary dilution (CANCE LED) 1441 (Given - Provider: Harley Borrero MD) ONCE PRN, Starting Fri04/23/19 at 1441, Until Fri04/23/19 at 1505, Cath (Intra-Procedure), Routine sodium chloride 0.9 % (flush) flush 5-20 mL 5-20 mL, Intravenous, EVERY 1 MIN PRN, S tarting Fri04/23/19 at 1646, Until Fri04/25/19 at 1534, flush, Flush pertains to all indwelling lines. Flush per protocol found in the job aid using the link provided on this medication record., Routine verapamil (ISOPTIN) injection (CANCELED) 1441 (Given - Provider: Maurilio Escobar II, MD) ONCE PRN, Starting Fri04/23/19 at 1441, Until Fri04/23/19 at 1505, Administer over 2 Minutes, Cath (Intra-Procedure) documented in this encounter Care Teams Net Technical Architect Relationship Specialty Start Date End Date Quin Rojas MD PCP - General 04/03/[address] [place] [address] documented as of this encounter
--- OUTSIDE RECORDS SUMMARY | 2022-03-08 01:57 | XMS_ITS | Encounter Summary ---
:1945 Author Organization [facility] [place] [address] Care Team Providers Name Role Phone Quin Rojas MD Primary Care Provider Encounter Details Date Type Department Care Team Description 04/09/2019 Telephone Cardiology Patrice Dick MD [facility] [place] [address] CARDIOLOGY DEPT [phone] [place] [id number] (Wo rk) Social History Tobacco Use Types [...] encounter Miscellaneous Notes Telephone Encounter - Patrice Dick MD - 04/09/2019 8:02 PM EST Consult request from [place]. 73yo F hx of ASCVD with caths in 2004 and 02/2019 on DAPT P/w palps, chest pressure, evaluated with Holter for this by Dr. Burkett in clinic, no electrical correlation with her symptoms. Normally takes nitro with good response. Usually resolves with a single NTG but it did not this morning. The symptoms did improve with a second NTG in the ED. She is going dane admitted by the medicine service at [facility] and they are requesting my input. She had a cath in February with multi-vessel disease, received stents to pLAD, mLAD, pOM1, midLCx, s/p angioplasty of D2. Her symptoms did improve initially after these interventions but have since recurred, albeit not to the same level. Dr. Burkett saw her on 03/17 and was doubtful that these symptoms represented angina. Troponin is negative and her ECG is benign. Overall the clinical picture is somewhat confusing given nitrate responsive pain that improved aftercatheterization, yet is very atypical and not associated with ECG changes. 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 I advised reassurance and outpatient follow up, with possible up-titration of nitrates as tolerated by blood pressure. documented in this encounter Plan of Treatment Upcoming Encounters Date Type Specialty Care Team Description 09/02/2022 Office Visit Cardiology Patrice Burkett MD [facility] [address] [place], [place] [address] (Wo rk) 11/25/2022 Office Visit Dermatology Kole Mccain MD [address] [place] [address] DERMATOLOGY [place], [place] [address] (Wo rk) documented as of this encounter Visit Diagnoses Not on filedocumented in this encounter Care Teams Aboriginal Community Council Member Relationship Specialty Start Date End Date Quin Rojas MD PCP - General 04/03/[address] [place] [address] documented as of this encounter
--- OUTSIDE RECORDS SUMMARY | 2022-03-08 01:57 | XMS_ITS | Encounter Summary ---
:1945 [place] [address] Care Team Providers Name Role Phone Quin Rojas MD Primary Care Provider Encounter Details Date Type Department Care Team Description 04/21/2019 Telephone Cardiology at [facility] Patrice Burkett MD [address] [place] [address] [place] [address] [place] [address] [phone] (Wo rk) Social History Tobacco Use Types [...] Telephone Encounter - Argentina Alaniz RN - 04/21/2019 2:01 PM EST Spoke with patient and advised her of MD Burkett recommendations. That it would be reasonable to go to ED for further evaluation and she does not need to take the second dose of Imdur. Patient verbalized understanding. Patient states that she will have her take her when he returns home shortly. Patient denied any other questions or concerns. Telephone Encounter - Andrew Isa R - 04/21/2019 1:14 PM EST Albina called because she is not feeling very well. She said she has been sleeping okay lately but just okay. She takes her imdur at 6 am and by 10:30 she starts to have breathing problems, can hardly function,and is just not feeling right. She said the more she tries to do things the more trouble she has breathing. She takes her second dosage at 6 pm and she is thinking about not taking it. Please call her back at [phone]. documented in this encounter Plan of Treatment Upcoming Encounters Date Type Specialty Care Team Description 09/02/2022 Office Visit Cardiology Patrice Burkett MD [facility] [address] [place], [place] [address] (Wo rk) 11/25/2022 Office Visit Dermatology Kole Mccain MD [address] [place] [address] DERMATOLOGY [place], [place] [address] (Wo rk) documented as of this encounter Visit Diagnoses Not on filedocumented in this encounter Care Teams Core Drier Relationship Specialty Start Date End Date Quin Rojas MD PCP - General 04/03/[address] [place] [address] documented as of this encounter
--- OUTSIDE RECORDS SUMMARY | 2022-03-08 01:57 | XMS_ITS | Encounter Summary ---
:1945 [place] [address] Care Team Providers Name Role Phone Quin Roajs MD Primary Care Provider Encounter Details Date Type Department Care Team Description 04/09/[address] [facility] PalPatrice MD [address] [place] [address] [place] [address] [place] [address] [phone] (Wo rk) Social History Tobacco Use Types [...] Telephone Encounter - Argentina Alaniz RN - 04/09/2019 2:48 PM EST 1419 Patient confirmed she had spoken to PCP who also recommended she go to the ER for further evaluation. Patient had agreed to the plan and was getting ready to head over now. Telephone Encounter - Argentina Alaniz RN - 04/09/2019 1:09 PM EST Patient states this morning she had an episode of increased heart palpitations, sweats, feeling lightheaded and a heaviness in her chest. BP per home monitor was 118/72, heart rate 49 Patient states after two hours of experiencing these symptoms she took one Nitro, which she reports improved her symptoms within 15 minutes. BP at that time was 113/40, heart rate of 44. She notes at this time she was also feeling a lump sensation in her throat, reports no difficulty in swallowing. Patient currently states her symptoms have improved but still has the lump and heaviness feeling. Reports shortness of breath with activity only. Current BP 152/71, heart rate 61. Patient states that s/s are worse then her normal anxiety and almost as bad as when she required immediate medical intervention. Nurse recommends patient seek medical attention. Patient states she prefers to not go to the ER if it is nothing. I don't want to waste peoples time Nurse reviewed symptoms with patient, provided education and safety concerns, recommend if she did not want to go to ER, she could contact her PCP to be seen today, but if PCP could not see her she should seek medical attention, nurse recommended patient seek immediate medical attention if symptoms increase or new symptoms develop. Patient verbalized understanding and states she will call PCP now. Telephone Encounter - Arlene Bills - 04/09/2019 11:23 AM EST Patient called having lots of Palpitations when she woke up. She took 1 Nitro and was relieved in 15minutes. She now feels a big lump in her throat and is very shaky. # [phone] documented in this encounter Plan of Treatment Upcoming Encounters Date Type Specialty Care Team Description 09/02/2022 Office Visit Cardiology Patrice Burkett MD [facility] [address] [place], [place] [address] (Wo rk) 11/25/2022 Office Visit Dermatology Kole Mccain MD [address] [facility] DERMATOLOGY [place], [place] [address] (Wo rk) documented as of this encounter Visit Diagnoses Not on filedocumented in this encounter Care Teams Case Advocate Relationship Specialty Start Date End Date Qiun Rojas MD PCP - General 04/03/[address] [place] [address] documented as of this encounter
--- OUTSIDE RECORDS SUMMARY | 2022-03-08 01:57 | XMS_ITS | Encounter Summary ---
:1945 Author Organization [facility] [place] [address] Care Team Providers Name Role Phone Quin Rojas MD Primary Care Provider Encounter Details Date Type Department Care Team Description 02/17/2019 Ancillary Radiology Library Quin Rojas Cance led (D-SCHED Procedure at [facility] ERROR / CORRECTION [address] [address] [phone] Social History Tobacco Use Types Packs/Day Years [...] 09/02/2022 Office Visit Cardiology Patrice Burkett MD [facility] Medical [facility] [address] [place], [place] [address] (Wo rk) 11/25/2022 Office Visit Dermatology Kole Mccain MD [address] [facility] DERMATOLOGY [place], [place] [address] (Wo rk) documented as of this encounter Visit Diagnoses Not on filedocumented in this encounter Care Teams Operations Lead Relationship Specialty Start Date End Date Quin Rojas MD PCP - General 04/03/[address] [place] [address] documented as of this encounter
--- OUTSIDE RECORDS SUMMARY | 2022-03-08 01:57 | XMS_ITS | Encounter Summary ---
:1945 [place] [address] Care Team Providers Name Role Phone Quin Rojas MD Primary Care Provider Reason for Visit Reason Onset Date Comments Medication Refill 04/16/2019 Encounter Details Date Type Department Care Team Description 04/16/2019 Refill Cardiology at [facility] Patrice Burkett MD Medication Refill [address] [facility] [place] [address] [place] [address] (Wo rk) Social History Tobacco [...] Notes Telephone Encounter - Isa Morales - 04/16/2019 11:49 AM EST Patient realized she also needs a refill for: crestor 5 mg Once daily 90 day Telephone Encounter - Isa Morales - 04/16/2019 11:24 AM EST Refill for: Isosorbide 30 mg Twice daily 90 day Nitro 0.4 mg [facility] Patient is expecting a call back only if you have questions or problems. [phone]. documented in this encounter Plan of Treatment Upcoming Encounters Date Type Specialty Care Team Description 09/02/2022 Office Visit Cardiology Patrice Burkett MD [facility] [address] [place], [place] [address] (Wo rk) 11/25/2022 Office Visit Dermatology Kole Mccain MD [address] [facility] DERMATOLOGY [place], [place] [address] (Wo rk) documented as of this encounter Visit Diagnoses Diagnosis Palpitations Chest pain, unspecified type Hyperlipidemia, unspecified hyperlipidem ia type documented in this encounter Care Teams Tobacco Classer Relationship Specialty Start Date End Date Quin Rojas MD PCP - General 04/03/[address] [place] [address] documented as of this encounter
--- OUTSIDE RECORDS SUMMARY | 2022-03-08 01:57 | XMS_ITS | Encounter Summary ---
:1945 Author Organization [facility] [place] [address] Care Team Providers Name Role Phone Quin Rojas MD Primary Care Provider Reason for Visit Reason Onset Date Comments Hospital Transfer 04/23/2019 Encounter Details Date Type Department Care Team Description 04/23/2019 Telephone [facility] Laura Winkler, [place] [address] [facility] [phone] CARDIOLOGY DEPT. [place] [address] (Wo rk) Social History Tobacco Use Types [...] this encounter Miscellaneous Notes Telephone Encounter - Laura Winkler, ELECTRICAL EXPERIMENTAL MECHANIC - 04/23/2019 11:11 AM EST Images from the original note were not included. 04/23/2019 Albina Thompson Initial Contact Date: 04/23/2019 Initial contact time: 11:12 AM Referring Provider: Dr. Madelaine Crespo Patient Location: [place] Past Medical History: Known ASCVD status post stent in February 2019, multiple other PCI's prior Positive nuclear stress test for mild distal anterior/apex ischemia on nuclear stress test done lastweek Hypertension Hyperlipidemia Presenting Symptoms per OSH: Patient is 73-year-old who presented to the [place] emergency room this morning after experiencingrest chest pain with associated shortness of breath and diaphoresis. She has been feeling poorly since stenting in February without resolution of her symptoms. A trial of isosorbide mononitrate was donewithout benefit. The patient was also in the [place] emergency room yesterday as she was feeling palpitations and was noted to be in ventricular bigeminy. She was discharged home but returned this morning after experiencing rest chest pain. She is followed by Dr. Burkett at the [place] cardiology clinic. He is requesting transfer to the [facility] suite for expedited cardiac catheterization. Pertinent Diagnostic Findings: INR 1.0 done on 04/22/2019 BUN 14 Creatinine 0.68 Hemoglobin 12.8 Hematocrit 38.0 Past cardiac studies: EKG: Holter: Echo: Stress: Nuclear stress test done 04/14/2019 showed mild distal anterior/apex ischemia, normal LV function Cath: February 2018 stent placement to proximal and mid LAD and D2 OSH Interventions: N.p.o. for cardiac catheterization Plan: Accepted in transfer to Dr. Guzman service via the [facility] suite Above recommendations were based on my discussion with Dr. Jaimes; I have not personally interviewed or examined this patient. I have not personally reviewed EKGs. Laura Winkler APRN Pager [phone] 04/23/2019 documented in this encounter Plan of Treatment Upcoming Encounters Date Type Specialty Care Team Description 09/02/2022 Office Visit Cardiology Patrice Burkett MD [facility] [address] [place] [place] [address] (Wo rk) 11/25/2022 Office Visit Dermatology Kole Mccain MD [address] [place] [address] DERMATOLOGY [place], [place] [address] (Wo rk) documented as of this encounter Visit Diagnoses Not on filedocumented in this encounter Care Teams Transfer Iron Operator Relationship Specialty Start Date End Date Quin Rojas MD PCP - General 04/03/[address] [place] [address] documented as of this encounter
--- OUTSIDE RECORDS SUMMARY | 2022-03-08 01:57 | XMS_ITS | Encounter Summary ---
:1945 Author Organization [facility] [place] [address] Care Team Providers Name Role Phone Quin Rojas MD Primary Care Provider Encounter Details Date Type Department Care Team Description 02/20/2019 Telephone Cardiology at [facility] Laura Abbasi MD [facility] [place] [phone] CARDIOLOGY DEPT [phone] [place] [id number] (Wo rk) Social History Tobacco Use Types [...] encounter Miscellaneous Notes Telephone Encounter - Laura Abbasi MD - 02/20/2019 12:08 PM EDT She feels some occasional palpitations. I encouraged her to not miss any doses of ticagrelor. Decrease losartan to 25 mg if blood pressure is less than 110 mmHg systolic and if she has dizziness. We reviewed her procedure. I shared we would send the patient handout from the cath report to her- request sent to Thierry Nicole. I will send this note to Dr Burkett. documented in this encounter Plan of Treatment Upcoming Encounters Date Type Specialty Care Team Description 09/02/2022 Office Visit Cardiology Patrice Burkett MD [facility] [address] [place], [place] [address] (Wo rk) 11/25/2022 Office Visit Dermatology Kole Mccain MD [address] [place] [address] DERMATOLOGY [place], [place] [address] (Wo rk) documented as of this encounter Visit Diagnoses Not on filedocumented in this encounter Care Teams Pastry Cook Apprentice Relationship Specialty Start Date End Date Quin Rojas MD PCP - General 04/03/[address] [place] [address] documented as of this encounter
--- OUTSIDE RECORDS SUMMARY | 2022-03-08 01:57 | XMS_ITS | Encounter Summary ---
:1945 Author Organization [facility] [place] [address] Care Team Providers Name Role Phone Quin Rojas MD Primary Care Provider Reason for Visit Auth/Cert Specialty Diagnoses / Procedures Referred By Contact Refer red To Contact Diagnoses Unstable angina Angina Referral ID Status Reason Start Date Expiration Date Visits Requ ested Visits Authorized [id number] 1 1 Encounter Details Date Type Department Care Team Description 04/23/2019 - Hospital Intermediate Cardiac Soha Fay Ather osclerosis of [place] coronary artery of [place] heart, angina presence unspecified; 04/25/2019 Encounter Care Unit Cristina Iraheta MD Essential hypertension; [place], [place] [address] [place] [address] [phone] (Work) [phone] Social History Tobacco Use Types Packs/Day Years [...] Sign Reading Time Taken Comments Blood Pressure 130/55 04/25/2019 12:49 PM EST Pulse 78 04/25/2019 8:45 AM EST Temperature 37 ??C (98.6 ??F) 04/25/2019 11:39 AM EST Respiratory Rate 18 04/25/2019 8:45 AM EST Oxygen Saturation 18% 04/25/2019 11:39 AM EST Inhaled Oxygen Concentration - - Weight 68.3 kg (150 lb 9.2 oz) 04/25/2019 6:19 AM EST Height 154.9 cm (5' 1) 04/23/2019 4:45 PM EST Body Mass Index 28.45 04/23/2019 4:45 PM [...] says this is similar to her previous VA but more intense. Of note she stopped taking her Imdur [address] Burkett due to dizziness. She has been on ASA and tic agrelor since February. ?? She presented to [facility]. Afebrile, BP 138/56, pulse 86, 99% [...] 10:40 AM Patrice Burkett MD Cardiology at [place] Arrive at: [facility] [address] [phone] General Instructions None Patient Instructions Patient Instructions [...] angina. Please continue to follow with your Stores Assistant to adjust the medications as needed. New [...] appointments: During 8am-5pm Friday through Friday call [phone] to speak with a nurse in the cardiology clinic All other times call [phone] and ask to speak to the laminator printed circuit boards operations team leader. Activity level: - No heavy lifting (more [...] Center 06/22/2019 10:40 AM Patrice Burkett MD [facility] PCP: Quin Rojas MD at [phone] Your Inpatient Doctor(s) at [facility]: Soha Fay MD - Attending physician Anneliese Oneal MD - Resident physician Eric Reyes - Auto Body Worker physician Your Primary Care Provider: Quin Rojas MD [address] [place] [phone] For questions regarding issues relating to your hospitalization on the Cardiology Service, please contact your inpatient physician through the [facility] Pneumatic Tool Repairer [phone], pager #[phone]. Issues after hours and on weekends will [...] angina. Please continue to follow with your Stores Assistant to adjust the medications as needed. New [...] appointments: During 8am-5pm Friday through Friday call [phone] to speak with a nurse in the cardiology clinic All other times call [phone] and ask to speak to the laminator printed circuit boards operations team leader. Activity level: - No heavy lifting (more [...] Center 06/22/2019 10:40 AM Patrice Burkett MD [facility] Cardio [facility] PCP: Quin Rojas MD at [phone] Your Inpatient Doctor(s) at [facility]: Soha Fay MD - Attending physician Anneliese Oneal MD - Resident physician Eric Reyes - Auto Body Worker physician Your Primary Care Provider: Quin Rojas MD [address] [place] [address] 1 / [facility] [id number] For questions regarding issues relating to your hospitalization on the Cardiology Service, please contact your inpatient physician through the [facility] Pneumatic Tool Repairer [phone], pager #[phone]. Issues after hours and on weekends will be handled by the Cardiology staff on-call. documented in this encounter Medications at Time of Discharge Medication Sig Dispensed Refills Start Date End Date VENTOLIN HFA 90 Inhale 2 puffs 1 11/25/2018 mcg/actuation HFA Aerosol into the lungs 2 Inhaler times daily as needed. fluticasone (FLONASE) 50 2 sprays by Each 0 mcg/actuation Bassett, Nare route Suspension nightly. cycloSPORINE (RESTASIS) 1 [...] wheelchair to car. to drive home. Soha Kurtz MD - 04/25/2019 9:31 AM EST Images from the original note were not included. I have reviewed the pertinent information, examined the patient, and discussed the management and plan with the house staff (resident, general intern). ?? Brief history: 73 yo female with [...] ? Impression: 1. CAD, chest pain, no VA 2. HTN 3. Palpitations 4. Hypothyroidism ?? Plan: 1. Med rx: asa, ticagrelor, statin 2. Imdur stopped due to side effects 3. Amlodipine not started due to hypotension 4. Metop (decreased dose); 50 mg XLdaily 5. Ranolazine, 500 mg BID has been started 6. Ambulate, home today with Dr. Burkett' follow-up in [place] ?? The patient understands the plan and all questions were answered. ?? Soha Fay MD Eric Reyes - 04/25/2019 7:35 AM EST Cardiology Inpatient Progress Note Admit date: Hospital day: Service: Attending 04/23/2019 2 S1 Pager [phone] Soha Fay MD ID: Albina Baptiste is [...] 9:00 PM metoprolol held for soft pressures (99/33) - Per patient: continues to feel symptomatic [...] was designated as ASA Class III. The [facility] clinical frailty scale is 3: Managing [...] procedure was Urgent. The indication for the environmental laboratory technician visit is other indication. Chest [...] day: Service: Attending 04/23/2019 1 S1 Pager [phone] Soha Fay MD ID: Albina Baptiste is [...] Resp: [12-19] SpO2 SpO2: [93 %-99 %] 04/23 0701 - 04/24 0700 In: 480 [...] Neuro - AAOx3 Labs Recent Labs 04/23/19 175 WBC 8.6 HGB 13.8 HCT 40.6 PLATELET [...] was designated as ASA Class III. The [facility] clinical frailty scale is 3: Managing [...] procedure was Urgent. The indication for the environmental laboratory technician visit is other indication. Chest [...] report in chart. Pt., came from the environmental laboratory technician, TR band maintained per protocol, [...] and plan with the house staff (resident, general intern). Brief history: 73 yo female with known CAD presents with further angina / palpitations. 2019: stent placed in prox and mid LAD, prox OM1, mid LCx. Angioplasty of ostial D2 lesion. No VA detected. Cath'd yesterday w/out complications, no PCI [...] disease Impression: 1. CAD, chest pain, no VA 2. HTN 3. Palpitations 4. Hypothyroidism Plan: [...] PCP: Quin Rojas MD PCP phone #: [phone] ID/Chief Complaint: [ Unstable Angina ] 73 [...] says this is similar to her previous VA but more intense. Of note she stopped taking her Imdur [address] Burkett due to dizziness. She has been on ASA and tic agrelor since February. She presented to [facility]. Afebrile, BP 138/56, pulse 86, 99% on RA. She was given 324mg ASA. OSH workup and intervention prior to transfer: Labs: - CBC wnl - K 3.8, Mg 2.1 - Cr 0.62 - Troponin negative @ 10:42 EKG: NSR with ventricular bigeminy; no evidence of acute ischemia/infarct On arrival she continued to have chest discomfort 07/19. She was taken to the environmental laboratory technician. Pre-treated with solu-medrol due to history of iodine allergy. No culprit lesions were identified. Review of Systems: Negative unless noted above. Problem List/Past Medical History Patient Active Problem List Diagnosis ??? Unstable angina ??? Palpitations 2013: negative Holter ??? Hypothyroidism ??? Essential hypertension ??? Coronary atherosclerosis of [place] coronary artery 2005: 2 stents to mid LAD and stent to osteal D2 (bifurcation lesion) at [facility] MIBI 01/2018- ST II, HR [...] 3.5 x 15 Carter 2.75 x 12 [place] POBA --> 45% residual LCx Mid 85 [...] mouth daily. ??? 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 Pre Cardiac Catheterization Note 73 y.o. female w/ hx of CAD nad multiple prior stents who presented to [place] with chest discomfort, shortness of breath, and exertional angina.These symptoms had initially abated following her cathterization and stent placement in February, but it returned a week after. She has been compliant with aspirin and ticagrelor. She was taking imdur but has since stopped as she did not see benefit. She presented to the [place] ED yesterday with palpitations, found to have [...] Review Outcome: Ongoing (Interventions Implemented as Appropriate) 04/24/1974404/25/193 Plan of Care Review Progress -- progress [...] Ongoing (Interventions Implemented as Appropriate) 04/24/19 0745 04/24/19211304/25/19 0403 Restraint Interventions Safety Promotion/Fall Prevention -- -- [...] Control Outcome: Ongoing (Interventions Implemented as Appropriate) 04/24/190 Safety Interventions Isolation Precautions standard precautions maintained Infection Prevention rest/sleep promoted;environmental surveillance performed Coping Strategies Supportive Measures active listening utilized Plan of Care - Natali Leonard RN - 04/24/2019 3:42 PM EST Problem: Patient Care Overview Goal: Plan of Care Review Outcome: Ongoing (Interventions Implemented as Appropriate) 04/24/19 0768 Coping/Psychosocial Plan Of Care Reviewed With patient [...] II, MD - 04/23/2019 3:33 PM EST [facility] Operative Note Albina Baptiste April 23, 2019 [phone] History Department Chair - Preliminary Findings Procedures: coronary angiography left [...] Cardiology Patrice Burkett MD [facility] [address] [place] [address] (Wo rk) 11/25/2022 Office Visit Dermatology Kole Mccain MD [address] [facility] [place], [place] [address] (Wo rk) documented as [...] of Result s for this PM EST [place] coronary artery proce dure are in of [place] heart, the results angina presence section. unspecified CARDIAC Routine 04/23/2019 3:05 Results for this CATHETERIZATION PM EST procedure ar e in the results section. documented in this encounter Results (ABNORMAL) Basic Metabolic Panel (non-fasting) (04/24/2019 9:28 AM EST) P athologist Signature Glucose Lvl 132 65 - 199 [facility] mg/dL [facility] Comment: Diabetes: >=200 mg/dL plus symp toms BUN 14 8 - 18 mg/dL [facility] Creatinine 0.76 0.70 - 1.20 mg/dL [facility] Sodium 144 135 - 145 mmol/L [facility] Potassium 3.6 3.5 - 5.0 mmol/L [facility] Comment: Please note: ??Patients with WBC >100,00 0 may have falsely elevated Potassium levels. ??For accurate Potassium quantif ication in these patients send serum separator tube (gold top) for subsequent determinations. ??Contact the Clinical Chemistry Laboratory if there are any qu estions. Chloride 109 (H) 98 - 107 mmol/L [facility] CO2 22 22 - 31 mmol/L [facility] Anion Gap 13 5 - 15 mmol/L [facility] Calcium 9.1 8.5 - 10.5 mg/dL [facility] Estimated GFR 77 >=60 mL/min/1.73 m?? [facility] Comment: The eGFR was calculated using the CKD-EP I equation. As with all creatinine based estimates of kidney function, eGFR values calculated with the CKD-EPI equation are not accurate in patients wi th acute kidney failure, extremes of body mass or the acutely ill. [email or web address] eGFR 89 >=60 mL/min/1.73 m?? [facility] Comment: The eGFR was calculated using the CKD-EP I equation. As with all creatinine based estimates of kidney function, eGFR values calculated with the CKD-EPI equation are not accurate in patients wi th acute kidney failure, extremes of body mass or the acutely ill. [email or web address] Specimen Anatomical Collection Method Collection Time Receive d Time (Source) Location / / Volume Laterality Blood specimen 04/24/2019 9:28 AM 019 9:35 (specimen) EST AM EST Resulting Agency Comment Spec In Lab Soha Fay MD CHEMISTRY ORDERABLES Performing Organization Address City/State/[place] [address] (ABNORMAL) Glucose, fasting (04/24/2019 5:27 AM EST) P athologist Signature Glucose 103 (H) 65 - 99 [facility] Fasting mg/dL [facility] Comment: ?Fasting* Glucose Interpretive C riteria Normal ?65-99 mg/dL Impaired Fasting glucose ?100-125 mg/dL Consistent with Diabetes Mellitus ? >or= 126 mg/dL *Fasting is defined as no caloric intake for at least 8 hours In the absence of unequivocal hypergly cemia a plasma glucose value of >or= 126 mg/dL should be repeated on a subseq uent day. Diagnosis and Classification of Diabetes Mellitus, Position Statement from the [place] [employer]. ??Diabete s Care, Volume 33, Supplement 1, May 2009 Specimen Anatomical Collection Method Collection Time Receive d Time (Source) Location / / Volume Laterality Blood specimen 04/24/2019 5:27 AM 019 6:10 (specimen) EST AM EST Resulting Agency Comment Spec In Lab Soha Fay MD CHEMISTRY ORDERABLES Performing Organization Address City/[facility] e [address] Triglyceride (04/24/2019 5:27 AM EST) P athologist Signature Triglycerides 96 mg/dL [facility] Comment: Average Risk/Lower Risk: <150 mg/dL Borderline High Risk: 150-199 mg/dL High Risk: 200-499 mg/dL Very High Risk: >qs=787 mg/dL Specimen Anatomical Collection Method Collection Time Receive d Time (Source) Location / / Volume Laterality Blood specimen 04/24/2019 5:27 AM 019 6:10 (specimen) EST AM EST Resulting Agency Comment Spec In Lab Soha Fay MD CHEMISTRY ORDERABLES Performing Organization Address City/[facility] [place] [address] HDL/Cholesterol Profile (04/24/2019 5:27 AM EST) P athologist Signature Chol, Total 135 mg/dL [facility] Comment: Lower Risk: <200 mg/dL Average Risk: 200-239 mg/dL Higher Risk: >in=357 mg/dL HDL 60 mg/dL [facility] Comment: Males: ?? Higher Risk: <40 mg/dL Females: ?? HIgher Risk: <50 mg/dL Chol/HDL Ratio 2.2 ratio [facility] Chol/HDL Interpretation See Note [facility] Comment: Lipid management should be guided by a p atient? s ASCVD risk, goals and preferences. ACC/AHA Guidelines recommend high intens ity statin if clinical ASCVD or LDL greater than or equal to 190 mg/dL. http://MAYKOR.com/WSP-CWZ-Noxcaxvin Measure LDL if Total Cholesterol minus H DL Cholesterol is greater than 220 mg/dL. Adults aged 40-75 with LDL 70-189 mg/dL should have their 10 year ASCVD risk estimated with the ACC/AHA ASCVD risk es timator http://tools.acc.org/PGSZM-Lzfi-Chbnqepc r/ Statin should be discussed if risk [...] Fay MD CHEMISTRY ORDERABLES Performing Organization Address City/[facility]/[place] [address] LDL Cholesterol, Direct (04/24/2019 5:27 AM EST) P athologist Signature LDL Chol 65 mg/dL [facility] Comment: Lowest Risk: <100 mg/dL Lower Risk: 100-129 mg/dL Borderline High Risk: 130-159 mg/dL High Risk: 160-189 mg/dL Very High Risk: >ao=257 mg/dL Specimen Anatomical Collection Method Collection Time Receive d Time (Source) Location / / Volume Laterality Blood specimen 04/24/2019 5:27 AM 019 6:10 (specimen) EST AM EST Resulting Agency Comment Spec In Lab Soha Fay MD CHEMISTRY ORDERABLES Performing Organization Address City/State/[place] [address] Hemoglobin A1c (04/24/2019 5:27 AM EST) athologist Signature Hemoglobin A1C 5.1 4.3 - 5.6 [facility] Comment: Reference Range: 4.3 - 5.6% [...] Mellitus, Diabetes Care 2013; 36: Suppl. 1, S67-00 Est Avg Gluc See note mg/dL [facility] Comment: Estimated Average Glucose not appropriat [...] with hemoglobinopathies. Additional resources are available on [facility] ADA website. Jamar ESPINOZA, Palmer J, Collins R, et al. ??Tr anslating the A1C assay into estimated average glucose values. ??Diabetes Care 2008:31(8):5359-6495. Specimen Anatomical Collection Method Collection Time Receive d Time (Source) Location / / Volume Laterality Blood specimen 04/24/2019 5:27 AM 019 6:10 (specimen) EST AM EST Resulting Agency Comment Spec In Lab Soha Fay MD CHEMISTRY ORDERABLES Performing Organization Address City/State/[place] [address] (ABNORMAL) Differential, Automated (04/23/2019 5:56 PM EST) [facility] gist Method Time Signature Neutrophils % 90.8 % [facility] Neutr Abs (ANC) 7.81 (H) 1.70 - [facility] 6.10 [facility] x10(3)/[facility] LABORATORY Lymphocytes % 7.3 % [facility] Lymphocytes Abs 0.6 (L) 0.9 - 3.2 [facility] x10(3)/[facility] LABORATORY Monocytes % 0.9 % [facility] Monocyte Abs 0.1 (L) 0.3 - 0.9 [facility] x10(3)/[facility] LABORATORY Eosinophils % 0.5 % [facility] Eosinophils Abs 0.0 0.0 - 0.4 [facility] x10(3)/[facility] LABORATORY Basophils % 0.2 % [facility] Basophils Abs 0.0 0.0 - 0.1 [facility] x10(3)/[facility] LABORATORY Immature Gran % 0.30 % [facility] Comment: Immature granulocytes(IG's)percentage an d absolute count will include metamyelocytes, myelocytes, and promyelo cytes. Blood smears from CBCs yielding IG's will be scanned manually for concor dance. If this scan disagrees with the automated IG or if promyelocytes are not ed, a manual differential will be performed. Edith Gran Abs 0.03 0.00 - 0.04 x10(3)/[facility] LABORATORY Specimen Anatomical Collection Method Collection Time Receive d Time (Source) Location / / Volume Laterality Blood specimen 04/23/2019 5:56 PM 019 6:03 (specimen) EST PM EST Resulting Agency Comment Spec In Lab Anneliese Oneal MD HEMATOLOGY ORDERABLES Performing Organization Address City/State/[place] [address] Hemogram (04/23/2019 5:56 PM EST) P athologist Signature WBC 8.6 4.0 - 9.5 [place] x10(3)/[facility] LABORATORY RBC 4.47 4.00 - [place] 5.21 [facility] x10(6)/[facility] LABORATORY Hemoglobin 13.8 11.7 - [place] 15.5 gm/dL [facility] Hematocrit 40.6 35.7 - [place] 45.8 % [facility] MCV 90.8 82.6 - [facility] 94.4 [facility] LABORATORY MCH 30.9 27.1 - [facility] 32.0 pg [facility] LABORATORY MCHC 34.0 31.7 - [place] 35.0 gm/dL [facility] Platelets 246 145 - 357 [facility] x10(3)/[facility] LABORATORY RDWSD 45.2 37.0 - [place] 46.0 [facility] LABORATORY RDWCV 13.4 11.5 - [place] 14.1 % [facility] LABORATORY MPV 9.8 7.6 - 12.9 [facility] nRBC % Auto 0.0 % [facility] nRBC Abs Auto 0.000 0.000 - [place] 0.000 [facility] x10(3)/[facility] LABORATORY Specimen Anatomical Collection Method Collection Time Receive d Time (Source) Location / / Volume Laterality Blood specimen 04/23/2019 5:56 PM 019 6:03 (specimen) EST PM EST Resulting Agency Comment Spec In Lab Anneliese Oneal MD HEMATOLOGY ORDERABLES Performing Organization Address City/State/[place] [address] (ABNORMAL) APTT (04/23/2019 5:56 PM EST) P athologist Signature PTT 55 (H) 25 - 37 sec [facility] Comment: The PTT is NOT [...] Fay MD HEMATOLOGY ORDERABLES Performing Organization Address City/[facility]/ZIP Code Phon e Number [address] (ABNORMAL) Prothrombin Time (04/23/2019 5:56 PM EST) athologist Signature PT 13.3 (H) 9.4 - 12.5 [facility] LABORATORY INR 1.2 [facility] Comment: An INR <2.0 indicates [...] Fay MD HEMATOLOGY ORDERABLES Performing Organization Address City/[facility]/[place] [address] Hepatic Function Panel (04/23/2019 5:56 PM EST) P athologist Signature Total Protein 7.7 6.1 - 8.0 [facility] Albumin 4.5 3.2 - 5.2 [facility] gm/dL [facility] AST 25 0 - 30 [facility] G[facility]ZAL[facility] unit/L [facility] ALT 18 0 - 30 [facility] unit/L [facility]ORY Alk Phos 95 35 - 105 [place] unit/L [facility] Total 0.7 0.2 - 1.3 [facility] FERR[facility] Bilirubin mg/dL [facility] Bili, Direct 0.2 0.0 - 0.3 [facility] mg/dL [facility] Specimen Anatomical Collection Method Collection Time Receive d Time (Source) Location / / Volume Laterality Blood specimen 04/23/2019 5:56 PM 019 6:03 (specimen) EST PM EST Resulting Agency Comment Spec In Lab Soha Fya MD CHEMISTRY ORDERABLES Performing Organization Address City/[facility]/ZIP Code Phon e Number [address] (ABNORMAL) pro-Brain Natriuretic Peptide (04/23/2019 5:56 PM EST) athologist Signature ProBNP 2,261 (H) <=125 [facility] pg/mL [facility] Specimen Anatomical Collection Method Collection Time Receive d Time (Source) Location / / Volume Laterality Blood specimen 04/23/2019 5:56 PM 019 6:03 (specimen) EST PM EST Resulting Agency Comment Spec In Lab Soha Fay MD CHEMISTRY ORDERABLES Performing Organization Address City/[facility]/ZIP Code Phon e Number [address] TSH (04/23/2019 5:56 PM EST) athologist Signature TSH 0.78 0.27 - 4.20 [place] mcIU/mL [facility] Specimen Anatomical Collection Method Collection Time Receive d Time (Source) Location / / Volume Laterality Blood specimen 04/23/2019 5:56 PM 019 6:03 (specimen) EST PM EST Resulting Agency Comment Spec In Lab Soha Fay MD CHEMISTRY ORDERABLES Performing Organization Address City/[facility]/ZIP Code Phon e Number [address] Phosphorus (04/23/2019 5:56 PM EST) athologist Signature Phosphorus 3.3 2.5 - 4.5 [facility] VILLAGOMEZPILLO mg/dL [facility] Specimen Anatomical Collection Method Collection Time Receive d Time (Source) Location / / Volume Laterality Blood specimen 04/23/2019 5:56 PM 019 6:03 (specimen) EST PM EST Resulting Agency Comment Spec In Lab Soha Fay MD CHEMISTRY ORDERABLES Performing Organization Address City/[facility]/ZIP Code Phon e Number [address] LABORATORY Drive Magnesium (04/23/2019 5:56 PM EST) athologist Signature Magnesium 0.87 0.69 - 1.07 [facility] mmol/L [facility] LABOR[facility] Specimen Anatomical Collection Method Collection Time Receive d Time (Source) Location / / Volume Laterality Blood specimen 04/23/2019 5:56 PM 019 6:03 (specimen) EST PM EST Resulting Agency Comment Spec In Lab Soha Fay MD CHEMISTRY ORDERABLES Performing Organization Address City/[facility]/ZIP Code Phon e Number [address] Calcium (04/23/2019 5:56 PM EST) athologist Signature Calcium 9.4 8.5 - 10.5 [facility] mg/dL [facility] LABOR[facility] Specimen Anatomical Collection Method Collection Time Receive d Time (Source) Location / / Volume Laterality Blood specimen 04/23/2019 5:56 PM 019 6:03 (specimen) EST PM EST Resulting Agency Comment Spec In Lab Soha Fay MD CHEMISTRY ORDERABLES Performing Organization Address City/[facility]/ZIP [facility] [address] (ABNORMAL) Basic Metabolic Panel (non-fasting) (04/23/2019 5:56 PM EST) athologist Signature Glucose Lvl 182 65 - 199 [facility] mg/dL [facility] Comment: Diabetes: >=200 mg/dL plus symp toms BUN 13 8 - 18 mg/dL [facility]OR[facility] Creatinine 0.78 0.70 - 1.20 mg/dL [facility] Sodium 141 135 - 145 mmol/L [facility] Potassium 4.2 3.5 - 5.0 mmol/L [facility] LAB[facility] Comment: Please note: ??Patients with WBC >100,00 0 may have falsely elevated Potassium levels. ??For accurate Potassium quantif ication in these patients send serum separator tube (gold top) for subsequent determinations. ??Contact the Clinical Chemistry Laboratory if there are any qu estions. Chloride 107 98 - 107 mmol/L [facility] LABOR[facility] CO2 20 (L) 22 - 31 mmol/L [facility] Anion Gap 14 5 - 15 mmol/L [facility] LABORATORY Calcium 9.4 8.5 - 10.5 mg/dL [facility] Estimated GFR 74 >=60 mL/min/1.73 m?? [facility] Comment: The eGFR was calculated using the CKD-EP I equation. As with all creatinine based estimates of kidney function, eGFR values calculated with the CKD-EPI equation are not accurate in patients wi th acute kidney failure, extremes of body mass or the acutely ill. [email or web address]ULS[facility]kf eGFR 86 >=60 mL/min/1.73 m?? [facility] Comment: The eGFR was calculated using the CKD-EP I equation. As with all creatinine based estimates of kidney function, eGFR values calculated with the CKD-EPI equation are not accurate in patients wi th acute kidney failure, extremes of body mass or the acutely ill. [email or web address]kf Specimen Anatomical Collection Method Collection Time Receive d Time (Source) Location / / Volume Laterality Blood specimen 04/23/2019 5:56 PM 019 6:03 (specimen) EST PM EST Resulting Agency Comment Spec In Lab Soha Fay MD CHEMISTRY ORDERABLES Performing Organization Address City/State/ZIP Code Phon e Number [place] [phone] HOSPITAL LABORATORY Drive EKG 12 Lead (04/23/2019 5:25 PM EST) Component Value Ref Range Test Analysis Performed Pathologis t Method Time At Signature Ventricular rate 76 BPM MUSE SYSTEM Atrial Rate 76 BPM MUSE SYSTEM P-R Interval 154 ms MUSE SYSTEM QRS Duration 86 ms MUSE SYSTEM Q-T Interval 380 ms MUSE SYSTEM QTC Calculated 427 ms MUSE SYSTEM (Bezet) Calculated P [place] 60 degrees MUSE SYSTEM Calculated R [place] 43 degrees MUSE SYSTEM Calculated T [place] 69 degrees MUSE SYSTEM INTERPRETATION Sinus rhythm [...] Laterality Volume Narrative 04/23/2019 3:39 PM EST ?[facility] ? Cardiac Cathete rization/Intervention Report ? Patient Name: Jay, Albina Piedra. ? Procedure Date: 04/23/2019 ? A #: [id number] ? Primary Physician: Shawn, Maurilio W ? Case #: [id number] ? File Name: [id number] ? Catheterization Order Number: [id number] ? [facility] ? Final Report [place], [place] ? Patient Name: ? Albina R. Hemo nd ? ID#: ?[id number] ? : ?1945 ? Procedure Date: ? Arjun 13, 20 19 ?Case #: ? [id number] ? Room: ? 1 ? Case Physician: ? Maurilio mena, M.D. ?Start: ?14:40 ?Fellow: ? Harley Borrero [...] procedure was Urgent. The indication for ?the environmental laboratory technician visit is other ind ication. [...] during these procedures. ?The attending physician was khai t for the entire procedure. ?Dr. Maurilio [...] note might be different from the original. [facility] Cardiac Catheterization/Intervention Re port Patient Name: Albina Baptiste Procedure Date: 04/23/2019 A #: [id number] Primary Physician: Maurilio Escobar Case #: [id number] File Name: [id number] Catheterization Order Number: [id number] [facility] History Department Chair [facility] Final Report [place], [place] Patient Name: Albina Baptiste ID#: [...] was designated as ASA Class III. The [facility] clinical frailty scale is 3: Managing [...] e was Urgent. The indication for the environmental laboratory technician visit is other indication. Chest [...] this encounter Visit Diagnoses Diagnosis Atherosclerosis of [place] coronary arter y of [place] heart, angina presence unspecified Essential hypertension Unspecified essential hypertension Palpitations Unstable angina Intermediate coronary syndrome documented in this encounter Admitting Diagnoses Diagnosis Unstable [...] Given 04/23/2019 6:14 PM EST 20 mg fluticasone propionate (FLONASE) 50 Given 04/24/2019 9:04 PM EST 2 sprays mcg/actuation nasal spray 2 spray 2 spray, Each Nare, NIGHTLY, First dose on Fri04/23/19 at 2100, Until Discontinued, Routine Given 04/23/2019 8:08 PM EST 2 sprays isosorbide mononitrate CR (Imdur) tablet 30 mg Given 04/24/2019 5:19 AM EST 30 mg 30 mg, Oral, EVERY MORNING, First dose on Fri04/24/19 at 0600, Until Discontinued, DO NOT CRUSH OR OPEN, Routine levothyroxine (Synthroid) tablet 75 mcg Given 04/25/2019 6:19 AM EST 75 mcg 75 mcg, Oral, DAILY, First dose on Fri04/24/19 at 0600, Until Discontinued, Routine Given 04/24/2019 5:19 AM EST 75 mcg metoprolol tartrate (Lopressor) tablet 12.5 Given 04/11 12:50 PM EST 12.5 mg mg 12.5 mg, Oral, EVERY 6 HOURS SCHEDULED, First dose (after last modification) on Fri04/24/19 at 1200, Until Discontinued, Routine Given 04/25/2019 6:21 AM EST 12.5 mg Given 04/25/2019 12:03 AM EST 12.5 mg metoprolol tartrate (Lopressor) tablet 2 5 mg Given 04/24/2019 5:19 AM EST 25 mg 25 mg, Oral, EVERY 6 HOURS SCHEDULED, First dose (after last modification) on Fri04/23/19 at 1800, Until Discontinued, Routine Given 04/23/2019 11:15 PM EST 25 mg montelukast (Singulair) tablet 10 mg Given 04/24/2019 9:06 PM EST 10 mg 10 mg, Oral, NIGHTLY, First dose on Fri04/23/19 at 2100, Until Discontinued, Routine Given 04/23/2019 8:08 PM EST 10 mg potassium chloride ER (K-Dur/Klor-Con) Given 04/24/2019 12:16 PM EST 40 mEq tablet 40 mEq 40 mEq, Oral, ONCE, 1 dose, On 04/24/19 at 1230, 20 mEq tablet may [...] Given 04/24/2019 8:21 AM EST 5 mLs sodium chloride 0.9% infusion New Bag 04/23/2019 3:30 PM EST 100 mL/hr 100 mL/hr 100 mL/hr, Intravenous, CONTINUOUS, Starting on Fri04/23/19 at 1545, Until Fri04/23/19 at 1844, Recovery (Recovery-Hospital Unit) ticagrelor (Brilinta) tablet 90 mg Given 04/25/2019 [...] Given 04/24/2019 8:21 AM EST 90 mg documented in this encounter Active and Recently Administered Medications Times are shown in EST. Scheduled Medication Order 04/23/2019 04/24/2019 04/25/2019 aspirin EC tablet 81 mg 820 (Given - Provider: Natali Leonard, LONNIE) 0848 (Given - Provider: Natali Leonard, RN) 81 mg, Oral, DAILY, First dose on Fri at 0900, Until Discontinued, Routine budesonide-formoterol (SYMBICORT) 160-4.5 mcg/actuatio n inhaler 2 Inhalation 2006 (Given - Provider: Anthony Burns, RN) 820 (Given - Provider: Natali Leonard, RN)2103 (Given - Provider: Leti Manning, RN) 847 (Given - Provider: Natali Leonard, LONNIE) 2 [...] 40 mg 2006 (Given - Provider: Anthony Burns, RN) 2105 (Given - Provider: Leti Manning, RN) 40 mg, Subcutaneous, NIGHTLY, First dose on Fri04/23/19 at 2100, Until Discontinued, Routine famotidine (Pepcid) tablet 20 mg 1813 (Given - Provide r: Natali Leonard RN) 820 (Given - Provider: Natali Leonard, LONNIE) 08 (Given - Provider: Natali Leonard, RN) 20 mg, Oral, DAILY, First dose on Fri04/23/19 at 1715, Until Di scontinued fluticasone propionate (FLONASE) 50 mcg/actuation nasa l spray 2 spray 2007 (Given - Provider: Anthony Burns, LONNIE) 2103 (Given - Provider: Leti Manning , RN) 2 spray, Each Nare, NIGHTLY, First dose on Fri04/23/19 at 2100, Until Discontinued, Routine isosorbide mononitrate CR (Imdur) tablet 30 mg (CANCELED) 518 (Given - Provider: Anthony Burns RN) 30 mg, Oral, EVERY MORNING, First dose o n 04/24/19 at 0600, Until Discontinued, DO NOT CRUSH OR OPEN, Routine levothyroxine (Synthroid) tablet 75 mcg 05 (Given - Provider: Anthony Burns RN) 06 (Given - Provider: Leti Manning RN) 75 mcg, Oral, DAILY, First dose on Sat 1 06/25/18 at 0600, Until Discontinued, Routine metoprolol tartrate (Lopressor) tablet 12.5 mg 1214 (Given - Provider: Natali Leonard, LONNIE)1858 (Not Given - Provider: Natali Leonard RN - Reason: See comment - Comment: map 58, pt., BP low, she states she is a little dizzy, held.) 0003 (Given - Provider: Leti Manning RN)0621 (Given - Provider: Leti Manning RN)1250 (Given - Provider: Natali Leonard, LONNIE) 12.5 mg, Oral, EVERY 6 HOURS SCHEDULED, First dose on 04/24/19 at 1200, Until Discontinued, Routine metoprolol tartrate [...] 10 mg 2007 (Given - Provider: Anthony Burns RN) 2105 (Given - Provider: Leti Manning, LONNIE) 10 mg, Oral, NIGHTLY, First dose on Fri04/23/19 at 2100, Until Discontinued, Routine potassium chloride ER (K-Dur/Klor-Con) tablet 40 mEq (COMPLE JUAN M) 121 (Given - Provider: Natali Leonard, LONNIE) 40 mEq, Oral, ONCE, 1 dose, 04/24/19 at 1230, 20 mEq tablet may be dissolved in water for administration, Routine ranolazine ER (Ranexa) tablet 500 mg 215 9 (Given - Provider: Leti Manning, RN) 0848 (Given - Provider: Natali sierra, RN) 500 mg, Oral, 2 TIMES DAILY, First dose on 04/24/19 at 2100, Until Discontinued, DO NOT CRUSH OR OPEN. Baseline EKG required before administration., Routine rosuvastatin (Crestor) tablet 5 mg 2007 (Given - Provider: Krystin Burns RN) 2105 (Given - Provider: Leti Manning RN) 5 mg, Oral, NIGHTLY, First dose on Fri06/24/18 at 2100, Until Discontinued, Routine sodium chloride 0.9 % (flush) flush 5 mL 2099 (Not Giv en - Provider: Anthony Burns RN - Reason: Contraindicated) 820 (Given - Provider: Natali Leonard RN)2106 (Given - Provider: Leti Manning RN) 0848 (Given - Provider: Natali Leonard RN) 5 mL, Intravenous, 2 TIMES DAILY, First dose on Fri04/23/19 at 2100, Until Discontinued, Routine ticagrelor (Brilinta) tablet 90 mg 2007 (Given - Provider: Krystin Burns RN) 820 (Given - Provider: Natali Leonard RN)2105 (Given - Provider: Leti Manning RN) 0848 (Given - Provider: Natali sierra, LONNIE) [...] 1,000 mg 1856 (Given - Provider: Natali Leonard RN) 1,000 mg, Oral, EVERY 6 HOURS PRN, [...] PRN, Sta rting Fri04/23/19 at 1646, Until Fri04/25/19 at 1534, Chest pain, May repeat every [...] (Intra-Procedure) documented in this encounter Care Teams Sales Representative Electric Service Relationship Specialty Start Date End Date Quin Rojas MD PCP - General 04/03/10 [address] [place] [address] documented as of this encounter
--- OUTSIDE RECORDS SUMMARY | 2022-03-08 01:57 | XMS_ITS | Encounter Summary ---
:1945 [place] [address] Care Team Providers Name Role Phone Quin Rojas MD Primary Care Provider Encounter Details Date Type Department Care Team Description 03/29/2019 Telephone [facility] PalPatrice MD [address] [place] [address] [place] [address] [place] [address] [phone] (Wo rk) Social History Tobacco Use Types [...] Telephone Encounter - Niki Kimball RN - 04/22/2019 2:58 PM EST Staff at [facility] notified Isa Morales that an office note is being faxed to us; patient is being sent to ER from their office. Telephone Encounter - Arlene Bills - 03/31/2019 11:15 AM EST Albina called wondering about the results from the holter? Also she is still SOB and tired. Questioning Brilinta. Ketty Escobar called asking how she was doing on it? # [phone] Telephone Encounter - Isa Morales - 03/29/2019 11:44 AM EST Patient called because she had a holter and wanted to know the results. She returned it on Friday. Also, her palpitations seem to be getting progressively worse. [facility] called her this morning to see how she is doing on brilinta. Please call her back @ [phone]. documented in this encounter Plan of Treatment Upcoming Encounters Date Type Specialty Care Team Description 09/02/2022 Office Visit Cardiology Patrice Burkett MD [facility] [address] [place] [address] (Wo rk) 11/25/2022 Office Visit Dermatology Kole Mccain MD [address] [facility] DERMATOLOGY [place], [place] [address] (Wo rk) documented as of this encounter Visit Diagnoses Not on filedocumented in this encounter Care Teams Superintendent Plant Relationship Specialty Start Date End Date Quin Rojas MD PCP - General 04/03/[address] [place] [address] documented as of this encounter
--- OUTSIDE RECORDS SUMMARY | 2022-03-08 01:57 | XMS_ITS | Encounter Summary ---
:1945 Author Organization [facility] [place] [address] Care Team Providers Name Role Phone Quin Rojas MD Primary Care Provider Reason for Visit Reason Comments Follow-up F/U after Discharge [facility] 01/28 Cath with Stents Encounter Details Date Type Department Care Team Description 03/17/2019 Office Visit Cardiology at Patrice Burkett, Atheroscl erosis of [place] coronary artery of [place] heart with stable angina pectoris; Barak JIMENEZ Palpitations; [address] [facility] hypertension [facility] [address] [place], [place], [place] [phone] Social History Tobacco Use Types Packs/Day Years [...] Sign Reading Time Taken Comments Blood Pressure 120/61 03/17/2019 9:12 AM EST Pulse 71 03/17/2019 9:12 AM EST Temperature - - Respiratory Rate - - Oxygen Saturation - - Inhaled Oxygen Concentration - - Weight 68 kg (150 lb) 03/17/2019 9:09 AM EST Height 157.5 cm (5' 2) 03/17/2019 9:09 AM EST Body Mass Index 27.44 03/17/2019 9:09 AM EST documented in this encounter Progress Notes Patrice Burkett MD - 03/17/2019 9:20 AM EST Subjective: Patient ID: Albina Thompson is a 73 y.o. female. Chief Complaint Patient presents with ??? Follow-up F/U after Discharge [facility] 02/17/19 Cath with Stents HPI 73 F presents for f/u of stable angina. Last seen 01/04/2019, at which time we redicussed cath, but she continued to ponder the idea. TTE was also obtained to evaluate for other cardiac causes of shortness of breath, which as below was unrevealing SInce then, she agreed to a cardiac cath, and prior to such being set up, presented to the ED with progressive symptoms. She was found to have multivessel disease, and after shared discussion agreed upon PCI rather than CABG. See problem list for coronary anatomy and stents Since then, she reports that the exertional chest pain, dyspnea continue, if not worse at a CCS III level. She did not seem to have any symptom relief after the stents. She has not yet begun participating in cardiac rehab, but plans to do so shortly. She has also noted an increase in palpitations; these were found at [facility] to be atrial bigeminy. She had a Holter monitor in 2012 which did not show anything significant She has been 100% compliant with all medications. No bleeding issues on DAPT. BP at home has been elevated, but she does not check much. Review of Systems 11 point ros either negative or per hpi Allergies Allergen Reactions ??? Pneumax [Phenylephrine-Guaifenesin] Rash Swelling ??? Oxycodone ??? Persantine [Dipyridamole] ??? Povidone-Iodine ??? Shellfish Derived crushing chest pain ??? Simvastatin myalgia ??? Thallium-201 ??? Iodine And Iodide Containing Products Reported chest pressure while eating lobster. Current Outpatient Medications Medication Sig Dispense Refill ??? CRESTOR 5 mg Tablet Take 1 [...] by mouth daily. 90 tablet 3 ??? acetaminophen (TYLENOL) 500 mg Tablet Take 1,000 mg by mouth every 6 hours as needed for Pain. ??? VENTOLIN HFA 90 mcg/actuation HFA Aerosol Inhaler Inhale 2 puffs into the lungs 2 times daily asneeded. 1 ??? nitroGLYcerin (NITROSTAT) 0.4 mg Tablet, Sublingual Place 1 tablet under the tongue every 5 minutes as needed for Chest pain. 90 tablet 3 ??? vit A/C/E ac/ZnOx/cupric oxide (EYE VITAMIN AND MINERALS ORAL) Take 1 capsule by mouth daily. ??? fluticasone (FLONASE) 50 mcg/actuation [place], Suspension 2 sprays by Each Nare route [...] visit. Patient Active Problem List Diagnosis ??? Palpitations 2013: negative Holter ??? Hypothyroidism ??? Essential hypertension ??? Coronary atherosclerosis of [place] coronary artery 2005: 2 stents to mid [...] 3.5 x 15 [place] 2.75 x 12 [place] POBA --> 45% residual LCx Mid 85 prox OM1 80 2.75 x 24 Promus 2.5 x 16 Promus RCA ??? Asthma ??? Hyperlipidemia ??? Posterior tibial tendon dysfunction ??? Ocular rosacea Objective: Physical Exam BP 120/61 (BP Location (NBP): Right arm, Patient Position: Standing, BP Cuff Sizes: Adult (25-34 cm)) Pulse 71 Ht 157.5 cm (5' 2) Wt 68 kg (150 lb) LMP (LMP Unknown) BMI 27.44 kg/m?? Gen: pleasant female in NAD Cor: [...] Skin: WWP, no rashes nor ulcers EKG: NSR. No e/o ischemia/infarct TTE 02/2019 1. The left ventricular chamber [...] disease. Assessment and Plan: Coronary atherosclerosis of [place] coronary artery The patient has excellent flow through all coronary arteries at this time; paired with a normal EKG today I highly doubt the continued chest pain on effort is coronary related. I do wonder if there is some component of palpitations causing the chest pain (as it appeared to have been correlated in 2013). Will thus repeat Holter - Anti-Thrombosis: asa, ticagrelor, the latter until at elast 02/2020 - Statin: crestor 5 - Anti-anginals: toprol 75, GTN PRN Palpitations 48h Holter. Essential hypertension If patient has elevated BP at home, this may be the cause of the chest pain. Have asked her to keep a BP log and report back to us 10-14 entries RTC 3 months Patrice Burkett MD documented in this encounter Miscellaneous Notes Assessment & Plan Note - Patrice Burkett MD - 03/17/2019 12:55 PM EST Associated Problem(s): Essential hypertension (Resolved 07/30/2020) If patient has elevated BP at home, this may be the cause of the chest pain. Have asked her to keep a BP log and report back to us 10-14 entries Assessment & Plan Note - Patrice Burkett MD - 03/17/2019 12:55 PM EST Associated Problem(s): Palpitations 48h Holter. Assessment & Plan Note - Patrice Burkett MD - 03/17/2019 12:53 PM EST Associated Problem(s): ASCVD (arteriosclerotic cardiovascular disease) The patient has excellent flow through all coronary arteries at this time; paired with a normal EKG today I highly doubt the continued chest pain on effort is coronary related. I do wonder if there is some component of palpitations causing the chest pain (as it appeared to have been correlated in 2012). Will thus repeat Holter - Anti-Thrombosis: asa, ticagrelor, the latter until at elast 02/2020 - Statin: crestor 5 - Anti-anginals: toprol 75, GTN PRN documented in this encounter Plan of Treatment Upcoming Encounters Date Type Specialty Care Team Description 09/02/2022 Office Visit Cardiology Patrice Burkett MD [facility] [address] [place] [address] (Wo rk) 11/25/2022 Office Visit Dermatology Kole Mccain MD [address] [facility] DERMATOLOGY [place], [place] [address] (Wo rk) documented as of this encounter Procedures Procedure Name Priority Date/Time Associated Diagnosis Comme nts EKG 12-LEAD Routine 03/17/2019 9:25 AM Results f or this EST procedure are i n the results section . documented in this encounter Results Holter Monitor 48hr (04/01/2019) Anatomical Region Laterality Modality Other Narrative 04/01/2019 Location: ??[facility] Referring: Madelaine Indication: Palpitations Duration of recording ? 47h59m Summary Data Predominant rhythm ? sinus rhythm Minimum sinus rate: 52 bpm Maximum sinus rate: 108 bpm Average sinus rate: 68 bpm Supraventricular Beats Occasional (4.3%) atrial premature beats (APC? s) There were 0 runs of SVT There was no atrial fibrillation (the [facility] recorded episodes of afib; these were in [...] AM Patrice Burkett MD CARDIAC SERVICES ORDERABLES EKG 12 Lead (03/17/2019 9:25 AM EST) Component Value Ref Range Test Analysis Performed Pathologis t Method Time At Signature Ventricular rate 67 BPM MUSE SYSTEM Atrial Rate 67 BPM MUSE SYSTEM P-R Interval 156 ms MUSE SYSTEM QRS Duration 92 ms MUSE SYSTEM Q-T Interval 376 ms MUSE SYSTEM QTC Calculated 397 ms MUSE SYSTEM (Bezet) Calculated P [place] 43 degrees MUSE SYSTEM Calculated R [place] 40 degrees MUSE SYSTEM Calculated T [place] 78 degrees MUSE SYSTEM INTERPRETATION Normal sinus rhythm MUSE SYSTEM Normal ECG When compared with ECG of 17-FEB-2019 07:20, No significant change was found Confirmed by MD Madelaine, Patrice ([id number]) on 03/18/2019 11:34:0 1 AM Specimen Anatomical Collection Method Collection Time Receive d Time (Source) Location / / Volume Laterality 03/17/2019 9:25 AM 9 EST 11:34 AM EST Unknown ECG ORDERABLES Performing Organization Address City/State/ZIP Code Phon e Number MUSE SYSTEM documented in this encounter Visit Diagnoses Diagnosis Atherosclerosis of [place] coronary arter y of [place] heart with stable angina pectoris Palpitations Essential hypertension Unspecified essential hypertension Palpitations documented in this encounter Care Teams Ripsawyer Relationship Specialty Start Date End Date Quin Rojas MD PCP - General 04/03/[address] [place] [address] documented as of this encounter
--- OUTSIDE RECORDS SUMMARY | 2022-03-08 01:57 | XMS_ITS | Encounter Summary ---
:1945 Author Organization [facility] [place] [address] Care Team Providers Name Role Phone Quin Rojas MD Primary Care Provider Encounter Details Date Type Department Care Team Description 02/25/2019 Hospital Encounter Shuttle Fixer [facility] [place] [address] [place] [address] [phone] Social History Tobacco Use Types Packs/Day Years [...] 09/02/2022 Office Visit Cardiology Patrice Burkett MD [facility] [address] [place], [place] [address] (Wo rk) 11/25/2022 Office Visit Dermatology Kole Mccain MD [address] DERMATOLOGY [place], [place] [address] (Wo rk) documented as of this encounter Visit Diagnoses Not on filedocumented in this encounter Care Teams Dry Mixer Relationship Specialty Start Date End Date Quin Rojas MD PCP - General 04/03/[address] [place] [address] documented as of this encounter
--- OUTSIDE RECORDS SUMMARY | 2022-03-08 01:57 | XMS_ITS | Encounter Summary ---
:1945 [place] [address] Care Team Providers Name Role Phone Quin Rojas MD Primary Care Provider Encounter Details Date Type Department Care Team Description 02/19/2019 Telephone Cardiology at [facility] Patrice Burkett MD [address] [place] [address] [place] [address] [place] [address] [phone] (Wo rk) Social History Tobacco Use Types [...] Telephone Encounter - Niki Kimball RN - 02/19/2019 2:[address] Burkett' reply. Telephone Encounter - Niki Kimball, RN - 02/19/2019 10:33 AM EDT Reviewed web source on Brilinta before calling this patient back: Generic Name: ticagrelor (ky JAYDEN figueroal or) Brand Names: Brilinta Medically reviewed by Aishwarya Ramsay MD ... Call your doctor at once if you have: chest pain; fainting or dizzy spells; nosebleeds, or any bleeding that will not stop; shortness of breath even with mild exertion or while lying down; easy bruising, unusual bleeding, purple or red spots under your skin; red, pink, or brown urine; black, bloody, or tarry stools; or coughing up blood or vomit that looks like coffee grounds. Common Brilinta side effects may include: bleeding; or shortness of breath. (more extensive list with FDA) Problems list and medications reviewed, then call to patient: S Patient restates she feels shaky, wobbly, weak, and unstable. She says the palpitations have stopped. Blood pressure and pulse checked within last 45 minutes: 146/62 and 71; 126/56 at repeat Review of intake of food and medications: She has taken only sips water and thyroid supplement. Normally by this hour of the morning she has awakened (6:45 am), taken synthroid, a breakfast coffee(8:00 am), takes all of her routine medications, including metoprolol succinate 75 mg,she rarely eats, then lunch at midday. Today she had coffee and Turkmen muffin between her call in and my return call. I feel better...andless shaky. The palpitations have stopped. A Patient delayed fluid and food intake today longer than her normal slow start for eating. It is mid-morning when she has not eaten, all pills have been taken, and only beverage coffee. The symptoms arepossibly due to delayed eating and less fluid intake. Patient agreed, saying, I should have thoughtof that. R Eat a little more. Eat normal lunch. Drink a water now. Drink more water at lunch. If you feel the same or worse than this morning after the midday, call back. If no call back, I will assume you are feeling better. Cc: Dr. Burkett Telephone Encounter - Arlene Bills - 02/19/2019 9:54 AM EDT Patient called and is saying she feels shakey, wobley, week, unstable and having palpitations. She is wondering if it could be Brilinta 90 mg tab, she takes 2 daily? This is a new medication for her. She is wondering if st could take Plavix instead. # [phone] documented in this encounter Plan of Treatment Upcoming Encounters Date Type Specialty Care Team Description 09/02/2022 Office Visit Cardiology Patrice Burkett MD [facility] [address] [place], [place] [address] (Wo rk) 11/25/2022 Office Visit Dermatology Kole Mccain MD [address] [place] [address] DERMATOLOGY [place], [place] [address] (Wo rk) documented as of this encounter Visit Diagnoses Not on filedocumented in this encounter Care Teams Brush Material Preparer Relationship Specialty Start Date End Date Quin Rojas MD PCP - General 04/03/[address] [place] [address] documented as of this encounter
--- OUTSIDE RECORDS SUMMARY | 2022-03-08 01:57 | XMS_ITS | Encounter Summary ---
:1945 [place] [address] Care Team Providers Name Role Phone Quin Rojas MD Primary Care Provider Encounter Details Date Type Department Care Team Description [facility] [address] [place] [address] [place] [address] [place] [address] [phone] (Wo rk) Social History Tobacco Use Types [...] Telephone Encounter - Argentina Alaniz RN - 04/07/2019 8:55 AM EST Patient returned nurse call. Nurse update patient on results from Holter monitor and MD recommendations to continue with Brilinta and ASA. Patient also confirmed she plans to participate in cardiac rehab in the new year. Reviewed medications and provided education. Patient verbalized understanding. Telephone Encounter - Arlene Bills - 04/06/2019 1:17 PM EST Please call Pt Friday AM with results of her 48 hr Holter. [phone] documented in this encounter Plan of Treatment Upcoming Encounters Date Type Specialty Care Team Description 09/02/2022 Office Visit Cardiology Patrice Burkett MD [facility] [address] [place], [place] [address] (Wo rk) 11/25/2022 Office Visit Dermatology Kole Mccain MD [address] [facility] DERMATOLOGY [place], [place] [address] (Wo rk) documented as of this encounter Visit Diagnoses Not on filedocumented in this encounter Care Teams Compensation/Benefits Specialist Relationship Specialty Start Date End Date Quin Rojas MD PCP - General 04/03/10 [facility] [address] [place] [address] documented as of this encounter
--- OUTSIDE RECORDS SUMMARY | 2022-03-08 01:57 | XMS_ITS | Encounter Summary ---
:1945 Author Organization [facility] [place] [address] Care Team Providers Name Role Phone Quin Rojas MD Primary Care Provider Reason for Visit Reason Comments Chest Pain Encounter Details Date Type Department Care Team Description 04/14/2019 Ext Surgery or [facility] Patrice Burkett Ather osccynthiaosis of Single [facility] MD [place] coronary artery [address] [facility] heart, [address] [place] [address] [phone] Social History Tobacco Use Types Packs/Day Years [...] Team Description 09/02/2022 Office Visit Cardiology Patrice Bukrett MD [facility] [address] [place], [place] [address] (Wo rk) 11/25/2022 Office Visit Dermatology Kole Mccain MD [address] [facility] DERMATOLOGY [place], [place] [address] (Wo rk) documented as of this encounter Procedures Procedure Name Priority Date/Time Associated Diagnosis Comme nts STRESS TEST SCAN 04/14/2019 12:00 Results for this AM EST procedure are i n the results section. ECG SCAN 04/14/2019 12:00 Results for this AM EST procedure are i n the results section. NM PHARMACOLOGIC Routine 04/14/2019 Atherosclerosis of Resul ts for this STRESS AND REST [place] coronary artery pr ocedure are in MYOCARDIAL PERFUSION of [place] heart, the results angina presence section. unspecified documented in this encounter Results SCAN DOC: STRESS TEST (04/14/2019 12:00 AM EST) Narrative 04/14/2019 12:00 AM EST This result has an attachment that is no t available. Ordered by an unspecified provider. Scanning Provider MEDIA MGR SCAN EXT ORDR/RSLT NM Pharmacologic Stress Myocardial Perfusion (04/14/2019) Anatomical Region Laterality Modality Other Narrative 04/14/2019 Lexiscan MIBI Stress Test- Final Report ? Albina Thompson ??1945 [facility] Primary Physician: Quin Rojas MD ? ?Indication: Chest pain ??Date: 04/14/2019 Referring: MD Madelaine Clinical: Max Exercise: ?Lexiscan 0.4mg IV Baseline --> Max HR: ??67 --> 107 ? Baseline --> Max BP: ?? 140/67 --> 172/7 2 Symptoms: ??Chest pain, shortness of paul ath, arm tingling with injection. ??Aminophylline 25mg IV x 1 was adminstered EKG Baseline: nsr Ischemic Changes: none Arrhythmias: none Details: Rest Images: 29.4 mC MIBI, SPECT: -no pe rfusion deficit Stress Images: ??10.0 mC MIBI, SPECT: -m ild, distal anterior-apical perfusion defect Gated Images: no wall motion abnormaliti es, EF 73%, no TID IMPRESSION: Mild distal anterior/apex ischemia No infarct pattern Normal LV function Electronically Signed: Patrice Burkett MD, 04/14/2019 5:37 PM Patrice Burkett MD IMG NM ORDERABLES SCAN DOC: ECG (04/14/2019 12:00 AM EST) Narrative 04/14/2019 12:00 AM EST This result has an attachment that is no t available. Ordered by an unspecified provider. Scanning Provider MEDIA MGR SCAN EXT ORDR/RSLT documented in this encounter Visit Diagnoses Diagnosis Atherosclerosis of [place] coronary arter y of [place] heart, angina presence unspecified documented in this encounter Care Teams Full Stack Engineer Relationship Specialty Start Date End Date Quin Rojas MD PCP - General 04/03/[address] [place] [address] documented as of this encounter
--- OUTSIDE RECORDS SUMMARY | 2022-03-08 01:57 | XMS_ITS | Encounter Summary ---
:1945 [place] [address] Care Team Providers Name Role Phone Quin Rojas MD Primary Care Provider Encounter Details Date Type Department Care Team Description 04/23/2019 Notes Only Cardiology at [facility] Patrice Burkett MD [address] [place] [address] [place] [address] [place] [address] [phone] (Wo rk) Social History Tobacco Use Types [...] encounter Progress Notes Patrice Burkett MD - 04/23/2019 10:41 AM EST TC received from ED regarding this patient well known to me She has a hx of CAD, with 3vd treated by way of multiple PCI in 02/2019. She had recurrence of exertional CP, so an exercise NST was performed 04/14/2019 which demonstrated distal LAD/apical ischemia. She was started on imdur with initial benefit, but since then has had recurrence of chest pain, and overnight was at rest [facility] ED evaluation includes a non-ischemic EKG, negative biomarkers. She is already on asa and ticagrelor I think she would derive benefit from repeat coronary lumenography, with attention to the LAD territory per stress test results (and angioplasty of D without complete resolution of stenosis). Will arrange this via [facility] Patrice Burkett MD documented in this encounter Plan of Treatment Upcoming Encounters Date Type Specialty Care Team Description 09/02/2022 Office Visit Cardiology Patrice Burkett MD [facility] [place], [place] [address] (Wo rk) 11/25/2022 Office Visit Dermatology Kole Mccain MD [address] [facility] DERMATOLOGY [place], [place] [address] (Wo rk) documented as of this encounter Visit Diagnoses Not on filedocumented in this encounter Care Teams Stunt Person Relationship Specialty Start Date End Date Quin Rojas MD PCP - General 04/03/[address] [place] [address] documented as of this encounter
--- OUTSIDE RECORDS SUMMARY | 2022-03-08 01:57 | XMS_ITS | Encounter Summary ---
:1945 [place] [address] Care Team Providers Name Role Phone Quin Rojas MD Primary Care Provider Encounter Details Date Type Department Care Team Description 04/15/2019 [facility] [address] [place] [address] [place] [address] [place] [address] [phone] (Wo rk) Social History Tobacco Use Types [...] Telephone Encounter - Argentina Alaniz RN - 04/15/2019 2:17 PM EST Patient states she is feeling poorly, I didn't sleep at all, reports feeling some improvement withImdur, but now has more palpitation, lump in throat and chest. Per MD Sampson patient may increase Imdur to BID, if s/s get worse patient to go to the ER for further evaluation. Patient verbalized understanding. Patient states she will take Imdur BID and will seek further medical attention if symptoms increase or persist. Telephone Encounter - Isa Morales - 04/15/2019 2:04 PM EST Patient called because she had a stress test yesterday. She said she is still having the same problems as before. Palpitation in the throat and chest. She could not sleep last night because of them and they were severe. Please call her back at [phone]. documented in this encounter Plan of Treatment Upcoming Encounters Date Type Specialty Care Team Description 09/02/2022 Office Visit Cardiology Patrice Burkett MD [facility] [address] [place], [place] [address] (Wo rk) 11/25/2022 Office Visit Dermatology Kole Mccain MD [address] [facility] DERMATOLOGY [place], [place] [address] (Wo rk) documented as of this encounter Visit Diagnoses Not on filedocumented in this encounter Care Teams Stick Welder Relationship Specialty Start Date End Date Quin Rojas MD PCP - General 04/03/[address] [place] [address] documented as of this encounter
--- OUTSIDE RECORDS SUMMARY | 2022-03-08 01:57 | XMS_ITS | Encounter Summary ---
:1945 Author Organization [facility] [place] [address] Care Team Providers Name Role Phone Quin Rojas MD Primary Care Provider Encounter Details Date Type Department Care Team Description 04/09/2019 External Results [place] [address] Social History Tobacco Use Types Packs/Day [...] MD [facility] Dr [place], [place] [address] (Wo rk) 11/25/2022 Office Visit Dermatology Kole Mccain MD [address] [place] [address] DERMATOLOGY [place], [place] [address] (Wo rk) documented as of this encounter Procedures Procedure Name Priority Date/Time Associated Diagnosis Comme nts ECG SCAN Routine 04/09/2019 Results for thi s procedure are in the resu lts section. documented in this encounter Results Scan Doc: ECG (04/09/2019) Narrative This result has an attachment that is no t available. Historical Provider MEDIA MGR SCAN EXT ORDR/RSLT documented in this encounter Visit Diagnoses Not on filedocumented in this encounter Care Teams Cabinet Finisher Relationship Specialty Start Date End Date Quin Rojas MD PCP - General 04/03/[address] [place] [address] documented as of this encounter
--- OUTSIDE RECORDS SUMMARY | 2022-03-08 01:57 | XMS_ITS | Encounter Summary ---
:1945 [place] [address] Care Team Providers Name Role Phone Quin Rojas MD Primary Care Provider Encounter Details Date Type Department Care Team Description 02/25/2019 [facility] [address] [place] [address] [place] [address] [place] [address] [phone] (Wo rk) Social History Tobacco Use Types [...] Telephone Encounter - Niki Kimball RN - 02/25/2019 1:28 PM EDT Objective: BP 143/83 Pulse 62 BP 110/53 Pulse 54 Called patient back at 1:45 pm. She is no longer having distressing symptoms to report. She recappedthe morning: when bending and straining to change the sheets on her bed, she experienced palpitations. She felt shaky and sweaty. The first BP and pulse check was done at 10:00 am. She decided to take 1 nitroglycerin to see if that gave relief to her symptoms. She says she did not feel chest pain, chest tightness, numbness, tingling, or other symptoms. 5 minutes later she did the second BP and pulse check. Patient worries her recent stent is why she is not feeling well. Patient feels better. Patient is reassured after describing these symptoms to nurse and we reviewed what she remembered from her doctor: she has occasional premature atrial contractions and she has occasional bigeminy PVCs.Teaching moment-explained that the premature atrial contractions is felt like palpitations but areusually harmless. She may also be feeling the bigeminy but the feeling is fortunately brief. Patient reports she is complying with increased fluids to drink and eating a small amount of bananasand yogurt before taking morning meds. She previously was taking meds with empty stomach and felt malaise afterward. Gave patient emotionally supportive messages between answering her health- related questions. Plan: Continue to self-monitor symptoms at home; report if concerns develop. Telephone Encounter - Arlene Bills - 02/25/2019 10:17 AM EDT Patient called saying her Blood Pressure is irregular After meds this AM 10:00 am 143/83 Pulse 62 Took 1 nitro 10:10 am 110/53 Pulse 54 Feeling shakey, week and cold sweats # [phone] documented in this encounter Plan of Treatment Upcoming Encounters Date Type Specialty Care Team Description 09/02/2022 Office Visit Cardiology Patrice Burkett MD [facility] [address] [place] [address] (Wo rk) 11/25/2022 Office Visit Dermatology Kole Mccain MD [address] [place] [address] DERMATOLOGY [place], [place] [address] (Wo rk) documented as of this encounter Visit Diagnoses Not on filedocumented in this encounter Care Teams Manager Sales Training Relationship Specialty Start Date End Date Quin Rojas MD PCP - General 04/03/[address] [place] [address] documented as of this encounter
--- OUTSIDE RECORDS SUMMARY | 2022-03-08 01:58 | XMS_ITS | Encounter Summary ---
:1945 Author Organization [facility] [place] [address] Care Team Providers Name Role Phone Quin Rojas MD Primary Care Provider Reason for Visit Auth/Cert Specialty Diagnoses / Procedures Referred By Contact Refer red To Contact Diagnoses Angina at rest [place] Referral ID Status Reason Start Date Expiration Date Visits Requ ested Visits Authorized [id number] 1 1 Encounter Details Date Type Department Care Team Description 02/16/2019 Surgery Manager Of Case Management Darrel Perkins CARDIAC CATHETERIZATION [facility] MD Emma [facility] [place] [address] CARDIOLOGY DEPT [phone] [place], [place] [address] (Wo rk) Social History Tobacco [...] Sign Reading Time Taken Comments Blood Pressure 161/83 02/16/2019 2:44 PM EDT Pulse 77 02/15/2019 12:00 PM EDT Temperature 36.8 ??C (98.2 ??F) 02/16/2019 11:02 AM EDT Respiratory Rate 18 02/16/2019 2:44 PM EDT Oxygen Saturation 92% 02/16/2019 3:08 PM EDT Inhaled Oxygen Concentration - - Weight 68.6 kg (151 lb 3.8 oz) 02/16/2019 6:25 AM EDT Height 154.9 cm (5' 1) 02/13/2019 2:38 PM EDT Body Mass Index 28.53 02/13/2019 2:38 PM EDT documented in this encounter Discharge Summaries Kiley Buchanan APRN - 02/14/2019 1:45 PM EDT Images from the original note were not included. Discharge Summary Patient Name: Albina Thompson Patient Age: 73 y.o. Language: Spanish Race: White Ethnicity: Not nor Admit date: 02/13/2019 Discharge date and time: 02/17/2019 1:48 PM Attending Physician: John Hua MD Discharge Physician: John Hua MD Follow-up Recommendations for Providers: 1. Continue aspirin and ticagrelor for DAPT. 2. Increased Toprol XL to 75 mg. Please monitor heart rate and blood pressure trends. 3. Consider outpatient holter or zio to assess PAC burden if patient continues with symptoms. 4. Crestor 5 mg (increased from 2.5 mg). Please uptitrate as tolerated. Lipid profile in 3 months. 5. Cardiac rehab referral. Inpatient Provider Contact Information: MD RICK Galarza APRN Amanda King, APRN Cardiovascular Medicine [phone] Discharge Diagnoses (Hospital Problems) and Secondary Diagnoses (Chronic Problems): Active Hospital Problems Diagnosis ??? Angina at rest ??? 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 Essential hypertension ??? Hyperlipidemia Resolved Hospital Problems No resolved problems to display. Active Non-Hospital Problems Diagnosis ??? Hypothyroidism ??? Asthma ??? Posterior tibial tendon dysfunction ??? Ocular rosacea Operations/Major Procedures: Cardiac cath 02/16/19: final report pending ?? [facility] Operative Note ?? Patient Name:??Albina Thompson?:??[id number]?MR#:??[id number] ?? Case Date:??02/16/2019 ?? Surgeon:??Surgeon(s) and Role: ?* Mere Abbasi MD - Primary ?* Harley Borrero MD - Fellow ? Preoperative diagnosis:??2 v??CAD ?? Postoperative diagnosis:??Successful PCI to LAD and LCx POBA to D1 in severe instent restenosis (underexpansion present at time of initial PCI) HERMES to mid LAD and proximal LAD HERMES to proximal OM1 and OM2 ?? Procedure(s) (LRB): CARDIAC CATHETERIZATION (N/A) STENT PLACEMENT-SINGLE MAJOR CORONARY ARTERY OR BRANCH (N/A) STENT PLACEMENT-EACH ADDITIONAL BRANCH OF A MAJOR CORONARY ARTERY (N/A) ?? Access:?? Radial provided good support for procedure. 6 Fr RRA with TR band in place, good hemostasis. ?? The patient tolerated the procedures smoothly and was transferred from the cardiac catheterization lab to the next level of care in stable condition, without pain. ??No evident early complications. ?? Results discussed with referring bronc breaker??Dr Burkett and Dr Hua, and with the patient and their family. ?? A time-out was conducted prior to the??start of the procedure to verify the correct patient and procedure, procedure location, and all relevant critical information. ?? Full report to follow. ?? MERE ABBASI MD Cardiac cath 02/15/2019: Coronary Angiography: ?Dominance: Co-dominant ?Left Main ?The left main was normal, free of disease. ?Short left main. ?Left Anterior Descending ?There was a 70% single discrete stenosis of the proximal segment of ?the left anterior descending artery (LAD). ??The LAD was large. ??The ?mid segment of the LAD had a single discrete 70% stenosis. ??This ?lesion represented in-stent restenosis following a prior coronary ?stent insertion. ?There was a 50% single discrete stenosis of the ostial segment of ?the first diagonal branch (Diagonal 1) of the LAD. ??The Diagonal 1 ?was small. ?There was a 70% single discrete stenosis of the ostial segment of ?the second diagonal branch (Diagonal 2) of the LAD. ??The Diagonal 2 ?was large. ?Left Circumflex ?There were multiple discrete 85% stenoses of the mid segment of the ?left circumflex artery (LCX). ??The LCX was large. ?There was an 80% single discrete stenosis of the proximal segment of ?the first obtuse marginal branch (OM1) of the LCX. ??The OM1 was ?small. ?There was a 20% single discrete stenosis of the proximal segment of ?the second obtuse marginal branch (OM2) of the LCX. ??The OM2 was ?large. ?Right Coronary Artery ?There was a 30% single discrete stenosis of the proximal segment of ?the right coronary artery (RCA). ??The RCA was large. ? Intravascular Imaging/Physiology: ?Instantaneous wave-free ratio (iFR) was determined across the 70% ?stenosis in the ostial D2 using a 6 Fr EBU 3.5 guiding catheter and a ?Verrata wire. ??Wire delivery was successful. ??The IFR across the 70% ?ostial D2 lesion was 0.82. ??This lesion was hemodynamically significant. ?Instantaneous wave-free ratio (iFR) was determined across the 30% ?stenosis in the proximal RCA using a 6 Fr JR 4 guiding catheter and a ?Verrata wire. ??Wire delivery was successful. ??The IFR across the 30% ?proximal RCA lesion was 0.96. ??This lesion was not hemodynamically ?significant. ?Instantaneous wave-free ratio (iFR) was determined across the 70% ?stenosis in the mid LAD using a 6 Fr EBU 3.5 guiding catheter and a ?Verrata wire. ??Wire delivery was successful. ??The IFR across the 70% mid ?LAD lesion was 0.87. ??This lesion was hemodynamically significant. ?Additional Findings: On pull back, proximal iFR 0.92. ? Vascular Access: ?Vascular Access Management: ?Mechanical Compression of the right radial artery access site was ?performed. ? Conclusions: ?* Two vessel coronary artery disease (LAD and LCX) ?* Recommend shared decision making approach for PCI v CABG. We will meet ?with patient and her this afternoon. ? Complications/Events: ?The patient had no complications during these procedures. ?? Studies: Echo: 02/14/19 SUMMARY: ?? 1. The left ventricular chamber size is normal. Left ventricular wall thickness is normal. There is normal global left ventricular systolic function. The quantitative left ventricular ejection fractionby biplane Smith's method is 72%. There are no left ventricular segmental wall motion abnormalities. Assessment of diastolic function is indeterminate. 2. The left atrium is mildly dilated. 3. The right ventricle is normal in size. Right ventricular global systolic function is normal. The estimated pulmonary artery systolic pressure is 25 mmHg. 4. There is no hemodynamically significant valve disease. ? History of Presentation: Patient is 73-year-old with a history of ASCVD (mid LAD stent x2 and ostial D2 stent placed in 2004), hypertension, hyperlipidemia, hypothyroidism who presented to [facility] today complaining of chest pressure that awoke her from sleep at 0445 this morning. ?? The patient saw Dr. Burkett earlier this summer and expressed exertional anginal symptoms. She deferred cardiac cath at that time preferring medical management. She failed a trial of Imdur and had diarrhea with a trial of amlodipine. She contacted Dr. Burkett yesterday agreeing for cardiac cath which has been scheduled for February 25, 2019. ?? For the past two weeks the patient states that her anginal symptoms have been worsening. Instead of being exertional the symptoms are occurring at rest or with less exertion. She has been woken from sleep with anginal symptoms in the past two weeks and again this morning at 0445. She felt 6-7/10 sub sternal chest pressure that had associated shortness of breath, palpitations like someone thumping on her heart and some discomfort around her shoulderblades. She says that she has had constant low levelof chest pressure for the past two weeks. She has been taking 1-2 sl nitroglycerin tablets in the past 24 hours with improvement in her chest pressure but not complete resolution. ?? At [place] she had a single negative troponin. ECG with PACs. Ticagrelor 180 mg x1, crestor 40 mg x 1 and aspirin 324 mg x 1 were administered. IV heparin was started. ?? She arrives with 6-7/10 chest pressure substernally. ?? Hospital Course: Accelerating angina, known ASCVD The patient ruled out for NSTEMI with negative troponins x 3. She was anticoagulated with IV heparinand started on IV nitroglycerin to assist with her chest pressure that radiated to her shoulder blades. Given the patient's risk factors, accelerating symptoms and chest pressure that woke her from sleep it was decided to proceed with coronary angiography. The patient went to the cardiac cardiac catheterization technician for a diagnostic cath which showed multivessel CAD, as outlined in above operative report. She was evaluated by both Dr. Torres from CT surgery and Dr. Abbasi (interventional cardiology) in regards to options of coronary revascularization, and ultimately decided to proceed with PCI. She underwent PCI to her proximal and mid LAD, as well as her proximal OM1 and OM2. She tolerated the procedure well.Access was via the right radial artery and this site was clean, dry and without ooze or hematoma on the day of discharge. The patient???s medications at discharge include: aspirin, ticagrelor, Toprol XL, Losartan, and crestor. She was also prescribed PRN nitroglycerin. The patient was evaluated by the cardiac rehab team. The patient tolerated supervised ambulation in the hallway and up/downstairs with no anginal symptoms, however did have an episode of lightheadedness. Her blood pressures were stable at the time, but she was noted to be in atrial bigeminy on telemetry. Her beta renan dose was then increased. It was recommended that the patient return home and participate in a supervised cardiac rehab program. Hypertension The patient's blood pressure in the 24 hours prior to discharge has been BP: (110-161)/(42-83) . Medications include: Losartan 50 mg and Toprol XL 75 mg. Hyperlipidemia Lipid profile showed total cholesterol 170 with LDL 86. Patient has been on crestor 2.5 mg daily prior to admission. This dosing was increased to 5 mg daily with the goal of getting her to 20 mg in thefuture. Routine screening labs revealed the following: HA1c 5.2% The patient was discharged home in stable condition. Functional and Cognitive Status: Alert and oriented x 3, ambulatory-independent Important Studies and Lab Data: Labs: Lab Results Component Value Date WBC 7.2 02/17/2019 HGB 11.5 (L) 02/17/2019 HCT 33.5 (L) 02/17/2019 PLATELET 176 02/17/2019 Recent Labs 02/13/19 1553 INR 1.1 Lab Results Component Value Date NA 142 02/17/2019 K 4.0 02/17/2019 CL 108 (H) 02/17/2019 CO2 24 02/17/2019 BUN 18 02/17/2019 CREATININE 0.60 (L) 02/17/2019 No results for input(s): TSH in the last 7068 hours. Recent Labs 02/14/19 0644 HA1C 5.2 Recent Labs 02/14/19 0644 02/13/19 2130 02/13/19 1553 TROPONINT <0.01 <0.01 <0.01 Lab Results Component Value Date CHLPL 170 02/14/2019 HDL 77 02/14/2019 CHOLHDL 2.2 02/14/2019 TRIG 51 02/14/2019 LDLCHOL 84 02/13/2019 LDLDIRECT 86 02/14/2019 Pending Studies and Lab Data: None Discharge Conditions/Prognosis: Ambulatory without anginal symptoms Discharge to: Home Updated Allergies/ADRs: Allergies Allergen Reactions ??? Pneumax [Phenylephrine-Guaifenesin] Rash Swelling ??? Oxycodone ??? Persantine [Dipyridamole] ??? Povidone-Iodine ??? Shellfish Derived crushing chest pain ??? Simvastatin myalgia ??? Thallium-201 ??? Iodine And Iodide Containing Products Reported chest pressure while eating lobster. Immunizations Given this Hospitalization: Immunization History Administered Date(s) Administered ??? Influenza, Trivalent, Adjuvanted 02/17/2019 ??? Td, adult 10/29/2005 Discharge Medications: Your Medications New Medications Dose Details ticagrelor 90 mg Tab Commonly known as: BRILINTA Take 1 tablet by mouth 2 times daily. 90 mg Quantity: 60 tablet Refills: 11 Continued medications with new dosing Dose Details CRESTOR 5 mg Tab Take 1 tablet by mouth nightly. Generic drug: rosuvastatin What changed: how much to take 5 mg Quantity: 30 tablet Refills: 2 metoprolol succinate 25 mg Tablet sr Commonly known as: TOPROL-XL Take 3 tablets by mouth daily. What changed: how much to take 75 mg Quantity: 90 tablet Refills: 2 Continued medications, unchanged Dose Details acetaminophen 500 mg Tab Commonly known as: TYLENOL Take 1,000 mg by mouth every 6 hours as needed for Pain. 1,000 mg Refills: 0 ADVAIR DISKUS 250-50 mcg/dose Dsdv Inhale 1 puff into the lungs 2 times daily. Generic drug: fluticasone propion-salmeterol 1 puff Refills: 0 * albuterol 2.5 mg /3 mL (0.083 %) Nebu Commonly known as: PROVENTIL Take 2.5 mg by nebulization every 4 hours as needed for Wheezing. 2.5 mg Refills: 0 * VENTOLIN HFA 90 mcg/actuation Hfaa Inhale 2 puffs into the lungs 2 times daily as needed. Generic drug: albuterol 2 puff Refills: 1 aspirin 81 mg Tbec Take 81 mg by mouth daily. 81 mg Refills: 0 cholecalciferol (Vitamin D3) 2,000 unit Cap Take 2,000 Units by mouth 2 times daily. Generic drug: cholecalciferol (Vitamin D3) 2,000 Units Refills: 0 cyclobenzaprine 5 mg Tab Commonly known as: [...] losartan 50 mg Tab Commonly known as: COZAAR Take 1 tablet by mouth daily. 50 mg Quantity: 90 tablet Refills: 3 montelukast 10 mg Tab Commonly known as: SINGULAIR Take 10 mg by mouth nightly. 10 mg Refills: 1 nitroGLYcerin 0.4 mg Subl Commonly known as: NITROSTAT Place 1 tablet under the tongue every 5 minutes as needed for Chest pain. 0.4 mg Quantity: 90 tablet Refills: 3 ranitidine 150 mg Tab Commonly known as: ZANTAC Take 150 mg by mouth 2 times daily. 150 mg Refills: 1 SYNTHROID 75 mcg Tab 75mcg, PO, Once daily Generic drug: levothyroxine Refills: 0 ubiquinone 10 mg Cap Commonly known as: coenzyme Q10 Take 100 mg by mouth daily. 100 mg Refills: 0 * This list has 2 medication(s) that are the same as other medications prescribed for you. Read thedirections carefully, and ask your doctor or other care provider to review them with you. Smoking Status at Discharge: Social History Tobacco Use Smoking Status Never Smoker Smokeless Tobacco Never Used Instructions Given to Patient at Discharge: There are no outpatient Patient Instructions on file for this admission. General Instructions Call your doctor if: Chest pain, shortness of breath, pain or swelling in legs occurs. If you have non-emergent questions between now and the time of your follow up appointments: During 8am-5pm Friday through Friday call [phone] to speak with a nurse in the cardiology clinic All other times call [phone] and ask to speak to the cork mixer command and control officer. Driving: No driving for 48 hours after catheterization. Follow up Appointments: PCP Quin Rojas MD [phone] February 22, 2019 1:[address] Burkett March 17, 2019 at 11:30 arrival in [place] Future Appointments and Orders Future Appointments and Orders Future Appointments Provider Department Dept Phone 03/17/2019 11:40 AM Patrice Burkett MD Cardiology at [place] [facility] [address] [phone] Future Orders Complete By Expires Referral to Cardiac Rehab [GSV458 Custom] As directed Process Instructions: If no progress note charted, please enter Clinical details in comments. Scheduling Instructions: Questions: My question or request is: Pt will participate in cardiac rehab @ [facility] [place] Discharge References/Attachments None Kiley Buchanan APRN Cardiovascular Medicine 02/17/2019 documented in this encounter Discharge Instructions Discharge InstructionsKiley Buchanan APRN - 02/17/2019 12:35 PM EDT Call your doctor if: Chest pain, shortness of breath, pain or swelling in legs occurs. If you have non-emergent questions between now and the time of your follow up appointments: During 8am-5pm Friday through Friday call [phone] to speak with a nurse in the cardiology clinic All other times call [phone] and ask to speak to the cork mixer command and control officer. Driving: No driving for 48 hours after catheterization. Follow up Appointments: PCP Quin Rojas MD [phone] February 22, 2019 1:[address] Burkett March 17, 2019 at 11:30 arrival in [place] documented in this encounter Medications at Time of Discharge Medication Sig Dispensed Refills Start Date End Date VENTOLIN HFA 90 Inhale 2 puffs into 1 11/25/2018 mcg/actuation HFA the lungs 2 times Aerosol Inhaler daily as needed. fluticasone (FLONASE) 50 2 sprays by Each Nare 0 mcg/actuation [place], route nightly. Suspension cycloSPORINE (RESTASIS) 1 drop 2 times daily. 0 0.05 % Dropperette aspirin 81 mg Tablet, Take 81 mg by mouth 0 Delayed Release (E.C.) daily. cholecalciferol, Vitamin Take 2,000 Units by 0 D3, 50 mcg (2,000 unit) mouth daily. Capsule ADVAIR DISKUS 250-50 Inhale 1 puff into 0 015 mcg/dose Disk with the lungs 2 times Device daily. montelukast (SINGULAIR) Take 10 mg by mouth 1 07/2014 10 mg Tablet nightly. levothyroxine 75mcg, PO, Once daily 0 11/06/2009 (SYNTHROID) 75 mcg tablet CRESTOR 5 mg Tablet Take 1 tablet by 30 tablet 2 02/17/2019 04/16/2019 mouth nightly. metoprolol succinate Take 3 tablets by 90 tablet 2 02/18/20 19 04/25/2019 (TOPROL-XL) 25 mg Tablet mouth daily. Sustained Release 24 hrIndications: Essential hypertension, Palpitations ticagrelor (BRILINTA) 90 Take 1 tablet by 60 tablet 11 02/1705/17/2019 mg Tablet mouth 2 times daily. losartan (COZAAR) 50 mg Take 1 tablet by 90 tablet 3 201805/17/2019 TabletIndications: mouth daily. Essential hypertension acetaminophen (TYLENOL) Take 1,000 mg by 0 07/25/2020 500 mg Tablet mouth every 6 hours as needed for Pain. nitroGLYcerin Place 1 tablet under 90 tablet 3 10/14/2018 1 06/17/2018 (NITROSTAT) 0.4 mg the tongue every 5 Tablet, Sublingual minutes as needed for Chest pain. vit A/C/E ac/ZnOx/cupric Take 1 capsule by 0 03/05/2022 oxide (EYE VITAMIN AND mouth daily. MINERALS ORAL) cyclobenzaprine Take 5 mg by mouth 3 0 08/13/2019 (FLEXERIL) 5 mg Tablet times daily as needed for Muscle spasms. albuterol (PROVENTIL) Take 2.5 mg by 0 04/25/2019 2.5 mg /3 mL (0.083 %) nebulization every 4 Solution for hours as needed for Nebulization Wheezing. ubiquinone (COENZYME Take 100 mg by mouth 0 08/13/2019 Q10) 10 mg Capsule daily. ranitidine (ZANTAC) 150 Take 150 mg by mouth 1 08/13/2019 mg Tablet 2 times daily. documented as of this encounter Progress Notes Soco Ramirez RN - 02/17/2019 12:28 PM EDT Met with patient who hopes to discharge home soon. IMM reviewed with patient and then signed by her.CM to follow to discharge. Kiley Buchanan APRN - 02/17/2019 10:38 AM EDT Inpatient Cardiology Progress Note Patient Name: Albina Thompson Service: INTERMODAL CUSTOMER SERVICE / PA Responsible Attending: John Hua MD Reason for continued hospitalization: Evaluation and management of accelerating angina Multivessel CAD - CT surgery consult S/p PCI to LAD and OM1, OM2 Active Problems: Active Hospital Problems Diagnosis ??? Angina at rest ??? 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 Essential hypertension ??? Hyperlipidemia Resolved Hospital Problems No resolved problems to display. Interval History: No acute concerns overnight, denies any chest pain or shortness of breath this morning. Ambulated the nursing unit with staff and tolerated this activity well. While working with cardiac rehab this morning, she endorsed a fluttering her chest and neck as well as some lightheadedness. Blood pressures stable at the time. Review of Systems: Review of Systems Respiratory: Negative for shortness of breath. Cardiovascular: Negative for chest pain. All other systems reviewed and are negative. Telemetry: HR: 60-70s sinus rhythm, frequent PACs, bigeminy Meds: Scheduled Meds: ??? budesonide-formoterol 2 Inhalation Inhalation BID ??? aspirin 81 mg Oral Daily ??? cholecalciferol (Vitamin D3) 2,000 Units Oral BID ??? rosuvastatin 5 mg Oral QPM ??? cycloSPORINE 1 drop Both Eyes BID ??? fluticasone propionate 2 spray Each Nare Nightly ??? levothyroxine 75 mcg Oral QAM ??? losartan 50 mg Oral Daily ??? montelukast 10 mg Oral Nightly ??? ubiquinone (coenzyme Q10) 100 mg Oral Daily ??? famotidine 20 mg Oral BID ??? docusate sodium 100 mg Oral BID ??? metoprolol tartrate 12.5 mg Oral Q6H CAITLYN ??? ticagrelor 90 mg Oral BID ??? multivitamin with minerals 1 tablet Oral Daily Continuous Infusions: ??? sodium chloride 0.9% 50 mL/hr (02/14/19 2339) ??? heparin (porcine) 900 Units/hr (02/14/19 1622) ??? nitroGLYcerin Stopped (02/15/19 0800) PRN Meds:heparin (porcine) AND heparin (porcine), acetaminophen, albuterol, nitroGLYcerin Physical Exam: Vital Signs: Last value Range last 24 hrs Temperature Temp: 36.8 ??C (98.2 ??F) Temp: [36.3 ??C (97.3 ??F)-36.8 ??C (98.2 ??F)] Heart Rate Heart Rate: 54 Heart Rate: [54-97] Blood Pressure BP: 152/55 BP: (110-161)/(42-83) Respiratory Rate Resp: 16 Resp: [11-20] SpO2 SpO2: 99 % SpO2: [92 %-99 %] Physical Exam Constitutional: She is oriented to person, place, and time. She appears well- developed and well-nourished. No distress. HENT: Head: Normocephalic and atraumatic. Eyes: Right eye exhibits no discharge. Left eye exhibits no discharge. Neck: Normal range of motion. Neck supple. Cardiovascular: Normal rate, regular rhythm, normal heart sounds and intact distal pulses. Exam reveals no gallop and no friction rub. No murmur heard. Pulmonary/Chest: Effort normal and breath sounds normal. No respiratory distress. She has no wheezes. She has no rales. Abdominal: Soft. Bowel sounds are normal. She exhibits no distension. There is no tenderness. There is no rebound. Musculoskeletal: Normal range of motion. She exhibits no edema. Neurological: She is alert and oriented to person, place, and time. Skin: Skin is warm and dry. No rash noted. She is not diaphoretic. No erythema. Right wrist is clean, dry and intact. No hematoma or ooze. Radial pulse is present. Intact color, sensation and motion. Capillary refill is under 2 seconds. Left arm ecchymosis and resolving hematoma,slightly inferior to AC Psychiatric: She has a normal mood and affect. Her behavior is normal. Nursing note and vitals reviewed. Lab Comments: Recent Labs 02/17/1934002/16/1940902/15/195 WBC 7.2 9.8* 13.8* HGB 11.5* 11.2* 11.7 HCT 33.5* 33.4* 33.5* PLATELET 176 202 230 Recent Labs 02/13/19 1553 INR 1.1 Recent Labs 02/17/19 0341 02/16/19 0410 02/15/19 0445 NA 142 143 142 K 4.0 3.6 3.9 CL 108* 109* 108* CO2 24 22 21* BUN 18 23* 19* CREATININE 0.60* 0.54* 0.59* Recent Labs 02/13/19 1553 AST 22 ALT 14 ALKPHOS 110* BILITOT 0.7 BILIDIR 0.2 Recent Labs 02/17/19 0341 02/16/19 0410 02/15/19 0445 CALCIUM 8.5 8.8 9.6 MAGNESIUM 0.86 0.87 0.86 Recent Labs 02/14/19 0644 02/13/19 2130 02/13/19 1553 TROPONINT <0.01 <0.01 <0.01 Pertinent Radiographic/Diagnostic Results: I have independently visualized the following studies: ECG: normal sinus rhythm, heart rate 65 Echo: 02/14/19: BP: 116/47 SUMMARY: 1. The left ventricular chamber size is [...] There is no hemodynamically significant valve disease. Cardiac cath 02/15/2019: Coronary Angiography: Dominance: Co-dominant Left Main The left main was normal, free of disease. Short left main. Left Anterior Descending There was a 70% single discrete stenosis of the proximal segment of the left anterior descending artery (LAD). The LAD was large. The mid segment of the LAD had a single discrete 70% stenosis. This lesion represented in-stent restenosis following a prior coronary stent insertion. There was a 50% single discrete stenosis of the ostial segment of the first diagonal branch (Diagonal 1) of the LAD. The Diagonal 1 was small. There was a 70% single discrete stenosis of the ostial segment of the second diagonal branch (Diagonal 2) of the LAD. The Diagonal 2 was large. Left Circumflex There were multiple discrete 85% stenoses of the mid segment of the left circumflex artery (LCX). The LCX was large. There was an 80% single discrete stenosis of the proximal segment of the first obtuse marginal branch (OM1) of the LCX. The OM1 was small. There was a 20% single discrete stenosis of the proximal segment of the second obtuse marginal branch (OM2) of the LCX. The OM2 was large. Right Coronary Artery There was a 30% single discrete stenosis of the proximal segment of the right coronary artery (RCA). The RCA was large. Intravascular Imaging/Physiology: Instantaneous wave-free ratio (iFR) was determined across the 70% stenosis in the ostial D2 using a 6 Fr EBU 3.5 guiding catheter and a Verrata wire. Wire delivery was successful. The IFR across the 70% ostial D2 lesion was 0.82. This lesion was hemodynamically significant. Instantaneous wave-free ratio (iFR) was determined across the 30% stenosis in the proximal RCA using a 6 Fr JR 4 guiding catheter and a Verrata wire. Wire delivery was successful. The IFR across the 30% proximal RCA lesion was 0.96. This lesion was not hemodynamically significant. Instantaneous wave-free ratio (iFR) was determined across the 70% stenosis in the mid LAD using a 6 Fr EBU 3.5 guiding catheter and a Verrata wire. Wire delivery was successful. The IFR across the 70% mid LAD lesion was 0.87. This lesion was hemodynamically significant. Additional Findings: On pull back, proximal iFR 0.92. Vascular Access: Vascular Access Management: Mechanical Compression of the right radial artery access site was performed. 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 We will meet with patient and her this afternoon. Complications/Events: The patient had no complications during these procedures. Cardiac cath 02/16/19: final report pending [facility] [place] Operative Note Patient Name: Albina Thompson : [id number] MR#: [id number] Case Date: 02/16/2019 Surgeon: Surgeon(s) and Role: * Mere Abbasi MD - Primary * Harley Borrero MD - Fellow Preoperative diagnosis: 2 v CAD Postoperative diagnosis: Successful PCI to LAD and LCx POBA to D1 in severe instent restenosis (underexpansion present at time of initial PCI) HERMES to mid LAD and proximal LAD HERMES to proximal OM1 and OM2 Procedure(s) (LRB): CARDIAC CATHETERIZATION (N/A) STENT PLACEMENT-SINGLE MAJOR CORONARY ARTERY OR BRANCH (N/A) STENT PLACEMENT-EACH ADDITIONAL BRANCH OF A MAJOR CORONARY ARTERY (N/A) Access: Radial provided good support for procedure. 6 Fr RRA with TR band in place, good hemostasis. The patient tolerated the procedures smoothly and was transferred from the cardiac catheterization lab to the next level of care in stable condition, without pain. No evident early complications. Results discussed with referring bronc breaker Dr Burkett and Dr Hua, and with the patient and their family. A time-out was conducted prior to the start of the procedure to verify the correct patient and procedure, procedure location, and all relevant critical information. Full report to follow. MERE ABBASI MD Assessment: Albina Thompson is a 73 y.o. female with history of ASCVD, hypertension, hyperlipidemia,hypothyroidism who presented with reports of exertional angina over the summer which has now progressed to resting angina as well as chest pressure that woke her from sleep on at least 2 occasions in the past 2 weeks. Ruled out for [place]. Was sent for cardiac catheterization and found to have multivesselCAD, as outlined in above operative report. She was seen by Dr. Torres in consult, but ultimately decided to proceed with PCI. She underwent PCI to her proximal and mid LAD, as well as her proximal OM1 and OM2. She tolerated the procedure well. Will increase beta renan therapy to help suppress increased atrial ectopy. Likely discharge home this afternoon. ?? PLAN: Resting angina, multivessel CAD TTE with pEF, no WMAs Continue aspirin, ticagrelor Continue bblocker therapy at increased dosing, Crestor, losartan Tele monitoring CT surgery consult appreciated S/p multivessal PCI Cardiac rehab consult ?? Hypertension Continue losartan, metoprolol at increased dosing BP: (110-161)/(42-83) ?? Hyperlipidemia Normal LFTs with minimal alk phos at 110 (ULN 105) Crestor 40 mg x 1 given at [place], patient has been taking Crestor 2.5 mg at home Crestor 5 mg ordered, to uptitrate as tolerated TC 170, HDL 77, LDL 86, Trig 51 ?? Hypothyroidism TSH was normal at [place] Continue levothyroxine 75 mcg daily DVT prophylaxis: early ambulation CODE STATUS: FULL CODE Discussed with MD Kiley Galarza APRN Cardiovascular Medicine 02/17/2019 Associated attestation - John Hua MD - 02/17/2019 8:06 PM EDT Cardiology Attending Addendum I shared this visit with Kiley Buchanan APRN and guided the medical decision-making. Nikos Martin - 02/16/2019 4:14 PM EDT Narrative:Visited in response to request for Wall Taper services. Pt was awake, alert, oriented and in chair and welcoming to visit. Assessment:Patient coping positively with stresses of illness/hospitalization at this time. Pt says that she is hoping to get better and go home. Pt is living with and has children who are verysupportive. Pt shared that she is blessed with good family who is always there for her. Pt asked forprayers and blessings. Outcome: provided emotional, spiritual support and encouraging presence. Wall Taper services accepted.Conversation to build trusting relationship.Provided prayer.Provided pastoral presence.Provided reli gious/sacramental rite. Follow up:yes Time; 25 Mins Kiley Buchanan APRN - 02/16/2019 8:53 AM EDT Inpatient Cardiology Progress Note Patient Name: Albina Thompson Service: INTERMODAL CUSTOMER SERVICE / PA Responsible Attending: John Hua MD Reason for continued hospitalization: Evaluation and management of accelerating angina Multivessel CAD - CT surgery consult Planned PCI today Active Problems: Active Hospital Problems Diagnosis ??? Angina at rest ??? 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 Essential hypertension ??? Hyperlipidemia Resolved Hospital Problems No resolved problems to display. Interval History: Multiple discussions had yesterday between the patient and her spouse and with from CT surgery and Dr. Abbasi (interventional cardiology) in regards to options of coronary revascularization. At this time, the patient would like to proceed with PCI. No acute concerns overnight, denies any chest pain or shortness of breath this morning. Review of Systems: Review of Systems Respiratory: Negative for shortness of breath. Cardiovascular: Negative for chest pain. All other systems reviewed and are negative. Telemetry: HR: 60-70s sinus rhythm, occasional PACs, rare PVCs Meds: Scheduled Meds: ??? budesonide-formoterol 2 Inhalation Inhalation BID ??? aspirin 81 mg Oral Daily ??? cholecalciferol (Vitamin D3) 2,000 Units Oral BID ??? rosuvastatin 5 mg Oral QPM ??? cycloSPORINE 1 drop Both Eyes BID ??? fluticasone propionate 2 spray Each Nare Nightly ??? levothyroxine 75 mcg Oral QAM ??? losartan 50 mg Oral Daily ??? montelukast 10 mg Oral Nightly ??? ubiquinone (coenzyme Q10) 100 mg Oral Daily ??? famotidine 20 mg Oral BID ??? docusate sodium 100 mg Oral BID ??? metoprolol tartrate 12.5 mg Oral Q6H CAITLYN ??? ticagrelor 90 mg Oral BID ??? multivitamin with minerals 1 tablet Oral Daily Continuous Infusions: ??? sodium chloride 0.9% 50 mL/hr (02/14/19 2339) ??? heparin (porcine) 900 Units/hr (02/14/19 1622) ??? nitroGLYcerin Stopped (02/15/19 0800) PRN Meds:heparin (porcine) AND heparin (porcine), acetaminophen, albuterol, nitroGLYcerin Physical Exam: Vital Signs: Last value Range last 24 hrs Temperature Temp: 37 ??C (98.6 ??F) Temp: [36.2 ??C (97.2 ??F)-37 ??C (98.6 ??F)] Heart Rate Heart Rate: 77 Heart Rate: [65-84] Blood Pressure BP: 139/69 BP: (117-198)/(28-107) Respiratory Rate Resp: 16 Resp: [10-28] SpO2 SpO2: 98 % SpO2: [92 %-98 %] Physical Exam Constitutional: She is oriented to person, place, and time. She appears well- developed and well-nourished. No distress. HENT: Head: Normocephalic and atraumatic. Eyes: Right eye exhibits no discharge. Left eye exhibits no discharge. Neck: Normal range of motion. Neck supple. Cardiovascular: Normal rate, regular rhythm, normal heart sounds and intact distal pulses. Exam reveals no gallop and no friction rub. No murmur heard. Pulmonary/Chest: Effort normal and breath sounds normal. No respiratory distress. She has no wheezes. She has no rales. Abdominal: Soft. Bowel sounds are normal. She exhibits no distension. There is no tenderness. There is no rebound. Musculoskeletal: Normal range of motion. She exhibits no edema. Neurological: She is alert and oriented to person, place, and time. Skin: Skin is warm and dry. No rash noted. She is not diaphoretic. No erythema. Right wrist is clean, dry and intact. No hematoma or ooze. Radial pulse is present. Intact color, sensation and motion. Capillary refill is under 2 seconds. Left arm ecchymosis and resolving hematoma,slightly inferior to AC Psychiatric: She has a normal mood and affect. Her behavior is normal. Nursing note and vitals reviewed. Lab Comments: Recent Labs 02/16/1940902/15/1944402/14/1944 WBC 9.8* 13.8* 7.1 HGB 11.2* 11.7 12.7 HCT 33.4* 33.5* 37.4 PLATELET 202 230 222 Recent Labs 02/13/19 1553 INR 1.1 Recent Labs 02/16/190 02/15/195 02/14/19 0644 NA 143 142 140 K 3.6 3.9 3.9 CL 109* 108* 105 CO2 22 21* 21* BUN 23* 19* 14 CREATININE 0.54* 0.59* 0.59* Recent Labs 02/13/19 1553 AST 22 ALT 14 ALKPHOS 110* BILITOT 0.7 BILIDIR 0.2 Recent Labs 02/16/190 02/15/195 02/14/19 0644 CALCIUM 8.8 9.6 9.2 MAGNESIUM 0.87 0.86 0.83 Recent Labs 02/14/19 0644 02/13/19 2130 02/13/19 1553 TROPONINT <0.01 <0.01 <0.01 Pertinent Radiographic/Diagnostic Results: I have independently visualized the following studies: ECG: normal sinus rhythm, heart rate 65 Echo: 02/14/19: BP: 116/47 SUMMARY: 1. The left ventricular chamber size is [...] There is no hemodynamically significant valve disease. Cardiac cath 02/15/2019: Coronary Angiography: Dominance: Co-dominant Left Main The left main was normal, free of disease. Short left main. Left Anterior Descending There was a 70% single discrete stenosis of the proximal segment of the left anterior descending artery (LAD). The LAD was large. The mid segment of the LAD had a single discrete 70% stenosis. This lesion represented in-stent restenosis following a prior coronary stent insertion. There was a 50% single discrete stenosis of the ostial segment of the first diagonal branch (Diagonal 1) of the LAD. The Diagonal 1 was small. There was a 70% single discrete stenosis of the ostial segment of the second diagonal branch (Diagonal 2) of the LAD. The Diagonal 2 was large. Left Circumflex There were multiple discrete 85% stenoses of the mid segment of the left circumflex artery (LCX). The LCX was large. There was an 80% single discrete stenosis of the proximal segment of the first obtuse marginal branch (OM1) of the LCX. The OM1 was small. There was a 20% single discrete stenosis of the proximal segment of the second obtuse marginal branch (OM2) of the LCX. The OM2 was large. Right Coronary Artery There was a 30% single discrete stenosis of the proximal segment of the right coronary artery (RCA). The RCA was large. Intravascular Imaging/Physiology: Instantaneous wave-free ratio (iFR) was determined across the 70% stenosis in the ostial D2 using a 6 Fr EBU 3.5 guiding catheter and a Verrata wire. Wire delivery was successful. The IFR across the 70% ostial D2 lesion was 0.82. This lesion was hemodynamically significant. Instantaneous wave-free ratio (iFR) was determined across the 30% stenosis in the proximal RCA using a 6 Fr JR 4 guiding catheter and a Verrata wire. Wire delivery was successful. The IFR across the 30% proximal RCA lesion was 0.96. This lesion was not hemodynamically significant. Instantaneous wave-free ratio (iFR) was determined across the 70% stenosis in the mid LAD using a 6 Fr EBU 3.5 guiding catheter and a Verrata wire. Wire delivery was successful. The IFR across the 70% mid LAD lesion was 0.87. This lesion was hemodynamically significant. Additional Findings: On pull back, proximal iFR 0.92. Vascular Access: Vascular Access Management: Mechanical Compression of the right radial artery access site was performed. 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 We will meet with patient and her this afternoon. Complications/Events: The patient had no complications during these procedures. ?? Assessment: Albina Thompson is a 73 y.o. female with history of ASCVD, hypertension, hyperlipidemia,hypothyroidism who presented with reports of exertional angina over the summer which has now progressed to resting angina as well as chest pressure that woke her from sleep on at least 2 occasions in the past 2 weeks. Ruled out for [place]. Was sent for cardiac catheterization and found to have multivesselCAD, as outlined in above operative report. She was seen by Dr. Torres yesterday in consult. She has decided to proceed with PCI today. Case likely to be this afternoon with Dr. Abbasi. ?? PLAN: Resting angina, multivessel CAD TTE with pEF, no WMAs Off IV heparin Continue aspirin, ticagrelor Continue bblocker therapy at increased dosing, Crestor, losartan Tele monitoring CT surgery consult appreciated NPO for [facility] wit planned PCI today Cardiac rehab consult following ?? Hypertension Continue losartan, metoprolol BP: (117-198)/(28-107) ?? Hyperlipidemia Normal LFTs with minimal alk phos at 110 (ULN 105) Crestor 40 mg x 1 given at [place], patient has been taking Crestor 2.5 mg at home Crestor 5 mg ordered TC 170, HDL 77, LDL 86, Trig 51 ?? Hypothyroidism TSH was normal at [place] Continue levothyroxine 75 mcg daily DVT prophylaxis: early ambulation CODE STATUS: FULL CODE Discussed with MD Kiley Galarza APRN Cardiovascular Medicine 02/16/2019 Associated attestation - John Hua MD - 02/16/2019 7:35 PM EDT Cardiology Attending Addendum I shared this visit with Kiley Buchanan APRN and guided the medical decision- making. Pt decided for PCIand underwent PCI of proximal and mid LAD and proximal OM1 and OM2, POBA of D1. Mere Abbasi MD - 02/15/2019 7:33 PM EDT Interventional cardiology progress note Ms Thompson is a 73 year old woman with prior bifurcation stenting [place] [address] Zuniga, whopresents with unstable angina. Her cardiac cath today demonstrated ischemia in LAD, D1 and severe disease in LCx, without significant RCA disease. I met with the patient and her , along with Dr Torres. We discussed risks and benefits of CABG vs PCI and elicited patient values and preferences. She is considering the options further and will make a final decision with Dr Hua. I also engaged her general bronc breaker, Dr Burkett, who expressed a preference for PCI. If the patient favors PCI, I can assist with procedure tomorrow afternoon. I will round again in themorning to learn more from the inpatient team- I appreciate their excellent care. Over 35 min spent in this daily visit, all in counseling with the patient and her family. Kiley Buchanan APRN - 02/15/2019 9:26 AM EDT Inpatient Cardiology Progress Note Patient Name: Albina Thompson Service: INTERMODAL CUSTOMER SERVICE / PA Responsible Attending: John Hua MD Reason for continued hospitalization: Evaluation and management of accelerating angina S/p cardiac catheterization Multivessel CAD - CT surgery consult Active Problems: Active Hospital Problems Diagnosis ??? Angina at rest ??? 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 Essential hypertension ??? Hyperlipidemia Resolved Hospital Problems No resolved problems to display. Interval History: Returned to floor from cardiac catheterization technician. Denies any current chest pain while resting in bed, but small levels of exertion can reproduce her symptoms. Spouse at the bedside. Review of Systems: Review of Systems Respiratory: Negative for shortness of breath. Cardiovascular: Positive for chest pain. All other systems reviewed and are negative. Telemetry: HR: 70-80s sinus rhythm, rare PACs, PVCs Meds: Scheduled Meds: ??? [JUL Hold] budesonide-formoterol 2 Inhalation Inhalation BID ??? [JUL Hold] aspirin 81 mg Oral Daily ??? [JUL Hold] cholecalciferol (Vitamin D3) 2,000 Units Oral BID ??? [JUL Hold] rosuvastatin 5 mg Oral QPM ??? [JUL Hold] cycloSPORINE 1 drop Both Eyes BID ??? [JUL Hold] fluticasone propionate 2 spray Each Nare Nightly ??? [JUL Hold] levothyroxine 75 mcg Oral QAM ??? [JUL Hold] losartan 50 mg Oral Daily ??? [JUL Hold] montelukast 10 mg Oral Nightly ??? [JUL Hold] ubiquinone (coenzyme Q10) 100 mg Oral Daily ??? [JUL Hold] famotidine 20 mg Oral BID ??? [JUL Hold] docusate sodium 100 mg Oral BID ??? [JUL Hold] metoprolol tartrate 12.5 mg Oral Q6H CAITYLN ??? [JUL Hold] ticagrelor 90 mg Oral BID ??? [JUL Hold] multivitamin with minerals 1 tablet Oral Daily Continuous Infusions: ??? [JUL Hold] sodium chloride 0.9% 50 mL/hr (02/14/19 2339) ??? [JUL Hold] heparin (porcine) 900 Units/hr (02/14/19 1622) ??? [JUL Hold] nitroGLYcerin Stopped (02/15/19 0800) PRN Meds:[JUL Hold] heparin (porcine) AND [JUL Hold] heparin (porcine), [JUL Hold] acetaminophen, [JUL Hold] albuterol, [JUL Hold] nitroGLYcerin Physical Exam: Vital Signs: Last value Range last 24 hrs Temperature Temp: 36.8 ??C (98.2 ??F) Temp: [36.7 ??C (98.1 ??F)-37 ??C (98.6 ??F)] Heart Rate Heart Rate: 84 Heart Rate: [72-93] Blood Pressure BP: 182/57 BP: (103-182)/(37-107) Respiratory Rate Resp: 18 Resp: [10-20] SpO2 SpO2: 94 % SpO2: [92 %-96 %] Physical Exam Constitutional: She is oriented to person, place, and time. She appears well- developed and well-nourished. No distress. HENT: Head: Normocephalic and atraumatic. Eyes: Right eye exhibits no discharge. Left eye exhibits no discharge. Neck: Normal range of motion. Neck supple. Cardiovascular: Normal rate, regular rhythm, normal heart sounds and intact distal pulses. Exam reveals no gallop and no friction rub. No murmur heard. Pulmonary/Chest: Effort normal and breath sounds normal. No respiratory distress. She has no wheezes. She has no rales. Abdominal: Soft. Bowel sounds are normal. She exhibits no distension. There is no tenderness. There is no rebound. Musculoskeletal: Normal range of motion. She exhibits no edema. Neurological: She is alert and oriented to person, place, and time. Skin: Skin is warm and dry. No rash noted. She is not diaphoretic. No erythema. Right wrist is clean, dry and intact. No hematoma or ooze. Radial pulse is present. Intact color, sensation and motion. Capillary refill is under 2 seconds. Left arm ecchymosis and resolving hematoma,slightly inferior to AC Psychiatric: She has a normal mood and affect. Her behavior is normal. Nursing note and vitals reviewed. Lab Comments: Recent Labs 02/15/19 0445 02/14/19 0644 WBC 13.8* 7.1 HGB 11.7 12.7 HCT 33.5* 37.4 PLATELET 230 222 Recent Labs 02/13/19 1553 INR 1.1 Recent Labs 02/15/19 0445 02/14/19 0644 NA 142 140 K 3.9 3.9 CL 108* 105 CO2 21* 21* BUN 19* 14 CREATININE 0.59* 0.59* Recent Labs 02/13/19 1553 AST 22 ALT 14 ALKPHOS 110* BILITOT 0.7 BILIDIR 0.2 Recent Labs 02/15/19 0445 02/14/19 0644 CALCIUM 9.6 9.2 MAGNESIUM 0.86 0.83 Recent Labs 02/14/19 0644 02/13/19 2130 02/13/19 1553 TROPONINT <0.01 <0.01 <0.01 Pertinent Radiographic/Diagnostic Results: I have independently visualized the following studies: ECG: normal sinus rhythm, heart rate 66 Echo: 02/14/19: BP: 116/47 SUMMARY: 1. The left ventricular chamber size is [...] There is no hemodynamically significant valve disease. Cardiac cath 02/15/2019: final report pending [facility] Operative Note ?? Patient Name: Albina Thompson : [id number] MR#: [id number] ?? Case Date: 02/15/2019 ?? Surgeon: Surgeon(s) and Role: * Mere Abbasi MD - Primary * Diego Meade MD - Fellow ?? Preoperative diagnosis: ?CAD ?? Postoperative diagnosis: CAD, positive iFR of diagonal and mid LAD; obstructive disease of LCx; negative iFR of RCA ?? Recommend shared decision making approach for PCI v CABG. Dr Meade to leave note regarding SYNTAX score, and PCI risk assessments, and we will meet with patient and her this afternoon. ?? Procedure(s) (LRB): CARDIAC CATHETERIZATION (N/A) ?? Access: Radial provided good support for procedure. 6 Fr RRA with TR band in place, good hemostasis. ?? Assessment: Albina Thompson is a 73 y.o. female with history of ASCVD, hypertension, hyperlipidemia,hypothyroidism who presents with reports of exertional angina over the summer which has now progressed to resting angina as well as chest pressure that woke her from sleep on at least 2 occasions in the past 2 weeks. Ruled out for [place]. Was sent for cardiac catheterization today and was found to have multivessel CAD, as outlined in above operative report. She will be seen by the CT surgery team in consult today. ?? PLAN: Resting angina, multivessel CAD TTE with pEF, no WMAs Resume IV heparin after hemostasis to complete 48 hours of therapy Continue IV nitroglycerin for symptom control Continue aspirin, ticagrelor Continue bblocker therapy at increased dosing, Crestor, losartan Tele monitoring CT surgery consult ?? Hypertension Continue losartan, metoprolol BP: (103-182)/(37-107) ?? Hyperlipidemia Normal LFTs with minimal alk phos at 110 (ULN 105) Crestor 40 mg x 1 given at [place], patient has been taking Crestor 2.5 mg at home Crestor 5 mg ordered TC 170, HDL 77, LDL 86, Trig 51 ?? Hypothyroidism TSH was normal at [place] Continue levothyroxine 75 mcg daily DVT prophylaxis: Heparin drip CODE STATUS: FULL CODE Discussed with MD Kiley Galarza APRN Cardiovascular Medicine 02/15/2019 Associated attestation - John Hua MD - 02/15/2019 5:53 PM EDT Cardiology Attending Addendum I shared this visit with Kiley Buchanan APRN and guided the medical decision- making, in discussion withDr Abbasi and Dr Torres. Pt inclined to go for PCI rather than CABG. . Rick Mehta APRN - 02/14/2019 9:38 AM EDT Images from the original note were not included. Inpatient Cardiology Progress Note Patient Name: Albina Thompson Service: INTERMODAL CUSTOMER SERVICE / PA Responsible Attending: John Hua MD Reason for continued hospitalization: Evaluation and management of accelerating angina Awaiting cardiac catherization Active Problems: Active Hospital Problems Diagnosis ??? Angina at rest ??? 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 Essential hypertension ??? Hyperlipidemia Resolved Hospital Problems No resolved problems to display. Interval History: Patient with systolic blood pressure in the 90s last night with symptomatic lightheadedness. Nitroglycerin drip was titrated down. However chest discomfort returned and nitroglycerin drip was increased to 15 mcg/minute. Aware of possible cardiac catheterization today pending schedule. States she is having 6/10 chest discomfort, appearing very comfortable in bed. Review of Systems: Review of Systems Respiratory: Negative for shortness of breath. Cardiovascular: Positive for chest pain. All other systems reviewed and are negative. Telemetry: HR: 60-95 sinus rhythm, sinus arrhythmia, rare PACs, bigeminy, trigeminy Meds: Scheduled Meds: ??? budesonide-formoterol 2 Inhalation Inhalation BID ??? aspirin 81 mg Oral Daily ??? cholecalciferol (Vitamin D3) 2,000 Units Oral BID ??? rosuvastatin 5 mg Oral QPM ??? cycloSPORINE 1 drop Both Eyes BID ??? fluticasone propionate 2 spray Each Nare Nightly ??? levothyroxine 75 mcg Oral QAM ??? losartan 50 mg Oral Daily ??? montelukast 10 mg Oral Nightly ??? ubiquinone (coenzyme Q10) 100 mg Oral Daily ??? famotidine 20 mg Oral BID ??? docusate sodium 100 mg Oral BID ??? metoprolol tartrate 12.5 mg Oral Q6H CATILYN ??? ticagrelor 90 mg Oral BID ??? multivitamin with minerals 1 tablet Oral Daily Continuous Infusions: ??? heparin (porcine) 900 Units/hr (02/14/19 1865) ??? nitroGLYcerin 20 mcg/min (02/14/19 0756) ??? sodium chloride 0.9% 50 mL/hr (02/13/19 2374) PRN Meds:heparin (porcine) AND heparin (porcine), acetaminophen, albuterol, nitroGLYcerin Physical Exam: Vital Signs: Last value Range last 24 hrs Temperature Temp: 36.6 ??C (97.9 ??F) Temp: [36.5 ??C (97.7 ??F)-37.5 ??C (99.5 ??F)] Heart Rate Heart Rate: 70 Heart Rate: [67-85] Blood Pressure BP: 132/56 BP: (94-148)/(44-76) Respiratory Rate Resp: 18 Resp: [18] SpO2 SpO2: 93 % SpO2: [92 %-99 %] Physical Exam Constitutional: She is oriented to person, place, and time. She appears well- developed and well-nourished. No distress. HENT: Head: Normocephalic and atraumatic. Eyes: Right eye exhibits no discharge. Left eye exhibits no discharge. Neck: Normal range of motion. Neck supple. Cardiovascular: Normal rate, regular rhythm, normal heart sounds and intact distal pulses. Exam reveals no gallop and no friction rub. No murmur heard. Pulmonary/Chest: Effort normal and breath sounds normal. No respiratory distress. She has no wheezes. She has no rales. Abdominal: Soft. Bowel sounds are normal. She exhibits no distension. There is no tenderness. There is no rebound. Musculoskeletal: Normal range of motion. She exhibits no edema. Neurological: She is alert and oriented to person, place, and time. Skin: Skin is warm and dry. No rash noted. She is not diaphoretic. No erythema. Psychiatric: She has a normal mood and affect. Her behavior is normal. Nursing note and vitals reviewed. Lab Comments: Recent Labs 02/14/19 0644 WBC 7.1 HGB 12.7 HCT 37.4 PLATELET 222 Recent Labs 02/13/19 1553 INR 1.1 Recent Labs 02/14/19 0644 NA 140 K 3.9 CL 105 CO2 21* BUN 14 CREATININE 0.59* Recent Labs 02/13/19 1553 AST 22 ALT 14 ALKPHOS 110* BILITOT 0.7 BILIDIR 0.2 Recent Labs 02/14/19 0644 CALCIUM 9.2 MAGNESIUM 0.83 Recent Labs 02/14/19 0644 02/13/19 2130 02/13/19 1553 TROPONINT <0.01 <0.01 <0.01 Pertinent Radiographic/Diagnostic Results: I have independently visualized the following studies: ECG: HR 61 sinus rhythm Echo: 02/14/19 Pending Assessment: Albina Thompson is a 73 y.o. female Patient is 73-year-old with history of ASCVD, hypertension, hyperlipidemia, hypothyroidism who has had exertional angina over the summer which has now progressed to resting angina as well as chest pressure that has woken her from sleep on at least 2 occasions in the past 2 weeks. Ruled out for MN. Continue IV heparin and IV nitroglycerin. Anticipate cardiac catheterization today or Friday as the schedule allows. Echocardiogram today. ?? PLAN: Resting angina, known ASCVD Continue IV heparin Continue IV nitroglycerin Continue aspirin, ticagrelor, Crestor, losartan Increase metoprolol dosing given Anticipate cardiac catheterization today versus Friday Echocardiogram today ?? Hypertension Continue losartan, metoprolol BP: (94-148)/(44-76) ?? Hyperlipidemia Normal LFTs with minimal alk phos at 110 (ULN 105) Crestor 40 mg x 1 given at [facility], patient has been taking Crestor 2.5 mg at home Crestor 5 mg ordered TC 170, HDL 77, LDL 86, Trig 51 ?? Hypothyroidism TSH was normal at [facility] Continue levothyroxine 75 mcg daily Discussed with MD Rick Galarza APRN 02/14/2019 Associated attestation - John Hua MD - 02/14/2019 3:08 PM EDT Cardiology Attending Addendum I shared this visit with Rick Mehta APRN, and guided the medical decision-making. Kole Nichole RN - 02/13/2019 2:57 PM EDT Patient arrived from [facility] no complaints of pain and no shortness of breath. Patient elizabeth heparin drip at 800 unit per hour. Telemetry initiated plus call douglas. documented in this encounter H&P Notes Rick Mehta APRN - 02/13/2019 3:53 PM EDT Images from the original note were not included. Cardiology Admission H&P Patient Name: Albina Thompson Date of : 1945 Age: 73 y.o. Hospital Admit Date: 02/13/2019 Inpatient Attending: John Hua MD PCP: Quin Rojas MD Presenting Diagnosis/Chief Complaint: Rest anginal symptoms Active Problem List: Active Hospital Problems Diagnosis ??? Angina at rest ??? 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 Essential hypertension ??? Hyperlipidemia Resolved Hospital Problems No resolved problems to display. History of Present Illness: Patient is 73-year-old with a history of ASCVD (mid LAD stent x2 and ostial D2 stent placed in 2004), hypertension, hyperlipidemia, hypothyroidism who presented to [facility] today complaining of chest pressure that awoke her from sleep at 0445 this morning. The patient saw Dr. Burkett earlier this summer and expressed exertional anginal symptoms. She deferred cardiac cath at that time preferring medical management. She failed a trial of Imdur and had diarrhea with a trial of amlodipine. She contacted Dr. Burkett yesterday agreeing for cardiac cath which has been scheduled for February 25, 2019. For the past two weeks the patient states that her anginal symptoms have been worsening. Instead of being exertional the symptoms are occurring at rest or with less exertion. She has been woken from sleep with anginal symptoms in the past two weeks and again this morning at 0445. She felt 6-7/10 sub sternal chest pressure that had associated shortness of breath, palpitations like someone thumping on her heart and some discomfort around her shoulderblades. She says that she has had constant low levelof chest pressure for the past two weeks. She has been taking 1-2 sl nitroglycerin tablets in the past 24 hours with improvement in her chest pressure but not complete resolution. At [facility] she had a single negative troponin. ECG with PACs. Ticagrelor 180 mg x1, crestor 40 mg x 1 and aspirin 324 mg x 1 were administered. IV heparin was started. She arrives with 6-7/10 chest pressure substernally. Past Medical History: Past Medical History: Diagnosis Date ??? Asthma 12/05/2017 ??? 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 Essential hypertension 12/05/2017 ??? Hyperlipidemia 12/05/2017 ??? Hypothyroidism 12/05/2017 Surgical History/Problems: No past surgical history on file. Significant Family History: Family History Problem Relation Age of Onset ??? Hypertension Mother ??? Asthma Mother ??? Hypertension Father ??? Heart Disease Father ??? Hyperlipidemia Father ??? Myocardial Infarction Father MN at age 40 and at age 60 ??? Heart Disease Sister ??? Heart Disease Brother MN at 48 ??? Hypertension Brother ??? Hypertension Maternal Grandfather ??? Heart Disease Maternal Grandfather ??? Hyperlipidemia Maternal Grandfather ??? Heart Disease Paternal Grandmother ??? Hypertension Paternal Grandfather ??? Heart Disease Paternal Grandfather ??? Hyperlipidemia Paternal Grandfather ??? Cancer Neg Hx Social History: Social History Socioeconomic History ??? Marital status: Spouse name: Not on file ??? Number of children: 6 ??? Years of education: Not on file ??? Highest education level: Not on file Occupational History ??? 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 Financial resource strain: Not on file ??? Food insecurity: Worry: Not on file Inability: Not on file ??? Transportation needs: Medical: Not on file Non-medical: Not on file Tobacco Use ??? Smoking status: Never Smoker ??? Smokeless tobacco: Never Used Substance and Sexual Activity ??? Alcohol use: Yes Frequency: Monthly or less Drinks per session: 1 or 2 Binge frequency: Never Comment: rare at a holiday ??? Drug use: No ??? Sexual activity: Not on file Lifestyle ??? Physical activity: Days per week: Not on file Minutes per session: Not on file ??? Stress: Not on file Relationships ??? Social connections: Talks on phone: Not on file Gets together: Not on file Attends mandaeism service: Not on file Active member of club or organization: Not on file Attends meetings of clubs or organizations: Not on file Relationship status: Not on file ??? Intimate partner violence: Fear of current or ex partner: Not on file Emotionally abused: Not on file Physically abused: Not on file Forced sexual activity: Not on file Other Topics Concern ??? Not on file Social History Narrative Lives with in [place], [place]. Has 6 children (2 sets of twins-one fraternal and one set identical). 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 REVIEW OF SYSTEMS: Review of Systems Constitutional: Positive for activity change and fatigue. HENT: Positive for congestion (question allergy to her rabbit). Negative for hearing loss, sore throat, tinnitus and trouble swallowing. Respiratory: Positive for cough and shortness of breath. Negative for wheezing. Cardiovascular: Positive for chest pain and palpitations. Negative for leg swelling. Gastrointestinal: Negative for blood in stool, constipation, diarrhea, nausea and vomiting. Genitourinary: Negative for dysuria, frequency, hematuria and urgency. Musculoskeletal: Positive for gait problem (uses cane with uneven ground). Skin: Negative. Neurological: Positive for headaches. Negative for dizziness, syncope, weakness and light-headedness. Hematological: Does not bruise/bleed easily. Psychiatric/Behavioral: Negative for confusion. The patient is not nervous/anxious. All other systems reviewed and are negative. Medications: Medications Prior to Admission Medication Sig Dispense Refill Last Dose ??? CRESTOR 5 mg Tablet Take 0.5 tablets by mouth nightly. 9 ??? losartan (COZAAR) 50 mg Tablet Take 1 tablet by mouth daily. 90 tablet 3 ??? acetaminophen (TYLENOL) 500 mg Tablet Take 1,000 mg by mouth every 6 hours as needed for Pain. Taking ??? VENTOLIN HFA 90 mcg/actuation HFA Aerosol Inhaler Inhale 2 puffs into the lungs 2 times daily asneeded. 1 Taking ??? metoprolol succinate (TOPROL-XL) 25 mg Tablet Sustained Release 24 hr Take 1 tablet by mouth daily. 90 tablet 3 Taking ??? nitroGLYcerin (NITROSTAT) 0.4 mg Tablet, Sublingual Place 1 tablet under the tongue every 5 minutes as needed for Chest pain. 90 tablet 3 Taking ??? vit A/C/E ac/ZnOx/cupric oxide (EYE VITAMIN AND MINERALS ORAL) Take 1 capsule by mouth daily. Taking ??? fluticasone (FLONASE) 50 mcg/actuation [place], Suspension 2 sprays by Each Nare route nightly. Taking ??? cyclobenzaprine (FLEXERIL) 5 mg Tablet Take 5 mg by mouth 3 times daily as needed for Muscle spasms. Taking ??? cycloSPORINE (RESTASIS) 0.05 % Dropperette 1 drop 2 times daily. Taking ??? albuterol (PROVENTIL) 2.5 mg /3 mL (0.083 %) Solution for Nebulization Take 2.5 mg by nebulization every 4 hours as needed for Wheezing. Taking ??? aspirin 81 mg Tablet, Delayed Release (E.C.) Take 81 mg by mouth daily. Taking ??? cholecalciferol, Vitamin D3, (CHOLECALCIFEROL, VITAMIN D3,) 2,000 unit Capsule Take 2,000 Units by mouth 2 times daily. Taking ??? ubiquinone (COENZYME Q10) 10 mg Capsule Take 100 mg by mouth daily. Taking ??? ADVAIR DISKUS 250-50 mcg/dose Disk with Device Inhale 1 puff into the lungs 2 times daily. 0 Taking ??? montelukast (SINGULAIR) 10 mg Tablet Take 10 mg by mouth nightly. 1 Taking ??? ranitidine (ZANTAC) 150 mg Tablet Take 150 mg by mouth 2 times daily. 1 Taking ??? levothyroxine (SYNTHROID) 75 mcg tablet 75mcg, PO, Once daily Taking Allergies: Allergies Allergen Reactions ??? Iodine And Iodide Containing Products ??? Pneumax [Phenylephrine-Guaifenesin] Rash Swelling ??? Oxycodone ??? Persantine [Dipyridamole] ??? Povidone-Iodine ??? Shellfish Derived crushing chest pain ??? Simvastatin myalgia ??? Thallium-201 PHYSICAL EXAM: Last set of vital signs: BP 148/76 (BP Location (NBP): Right arm) Pulse 85 Temp 36.8 ??C (98.2 ??F) (Oral) Resp 18 Ht 154.9 cm (5' 1) Wt 68.2 kg (150 lb 5.7 oz) LMP (LMP Unknown) SpO2 99% BMI 28.41 kg/m?? Physical Exam Constitutional: She is oriented to person, place, and time. She appears well- developed and well-nourished. No distress. HENT: Head: Normocephalic and atraumatic. Eyes: Right eye exhibits no discharge. Left eye exhibits no discharge. Neck: Normal range of motion. Neck supple. Cardiovascular: Normal rate, regular rhythm, normal heart sounds and intact distal pulses. Exam reveals no gallop and no friction rub. No murmur heard. Pulmonary/Chest: Effort normal and breath sounds normal. No respiratory distress. She has no wheezes. She has no rales. Abdominal: Soft. Bowel sounds are normal. She exhibits no distension. There is no tenderness. There is no rebound. Musculoskeletal: Normal range of motion. She exhibits no edema. Neurological: She is alert and oriented to person, place, and time. Skin: Skin is warm and dry. No rash noted. She is not diaphoretic. No erythema. Psychiatric: She has a normal mood and affect. Her behavior is normal. Nursing note and vitals reviewed. Diagnostics: I have independently visualized the following studies: ECG: HR 88 sinus rhythm with frequent PACs LABS: Recent Results (from the past 24 hour(s)) Troponin Result Value Ref Range Troponin-T <0.01 0.00 - 0.00 ng/mL Prothrombin Time Result Value Ref Range PT 12.4 9.4 - 12.5 sec INR 1.1 APTT Result Value Ref Range PTT 93 (H) 25 - 37 sec Heparin (unfractionated) Level Result Value Ref Range Heparin UFH Level 0.22 IU/mL [facility] 02/13/19 WBC 6.1 Hgb 12.9 Hct 38.3 Plt 222 Na 141 K 4.1 Cl 107 CO2 25 BUN 15 Cr 0.55 Glucose 112 Ca 8.9 Mag 2.0 Lipase 40 TSH 0.81 #1 Troponin 0.01 ASSESSMENT: Patient is 73-year-old with history of ASCVD, hypertension, hyperlipidemia, hypothyroidism who has had exertional angina over the summer which has now progressed to resting angina as well as chest pressure that has woken her from sleep on at least 2 occasions in the past 2 weeks. We will plan to continue cycling cardiac enzymes. Continue IV heparin. IV nitroglycerin was started with improvement in the patient's chest pressure sensation. Anticipate cardiac catheterization either tomorrow or on Friday as the schedule allows. Echocardiogram likely tomorrow. PLAN: Resting angina, known ASCVD Continue IV heparin Continue IV nitroglycerin Continue aspirin, ticagrelor, Crestor, losartan Increase metoprolol dosing Anticipate cardiac catheterization tomorrow versus Friday Echocardiogram tomorrow Hypertension Continue losartan, metoprolol BP: (99-148)/(60-76) Hyperlipidemia Patient states her LFTs have been elevated due to 10 years of tetracycline for her rosacea, will addon LFTs to labs today Crestor 40 mg x 1 given at [facility], patient has been taking Crestor 2.5 mg at home Add on fasting lipid profile Hypothyroidism TSH was normal at [facility] today Continue levothyroxine 75 mcg daily Discussed with John Hua MD Provider: RICK MEHTA APRN Provider #: [id number] 02/13/2019 Associated attestation - John Hua MD - 02/13/2019 5:29 PM EDT Cardiology Attending Addendum I shared this visit with Rick Mehta APRN, and guided the medical decision- making. Pt currentlychest pain free on iv nitro. Have explained to her importance of letting us know in case chest tightness recurs on iv NTG. Dr Horowitz aware of patient. Possible cath in AM (or earlier if pain not controlled by iv NTG), or, if pt stabilizes, on Friday. documented in this encounter Miscellaneous Notes Consult Note - Tonja Quintanilla RN - 02/17/2019 11:56 AM EDT Cardiac Rehabilitation Inpatient Evaluation Primary Cardiac Diagnosis: s/p PCI Cardiac Risk Factors: Smoking: no Overweight: yes Hyperlipidemia: yes Sedentary: no HTN: yes Family history: yes DM: no Stress: yes Patient Education: Reviewed cardiac cath findings, implications of coronary artery disease, managingangina and risk factor modification. Reviewed managing angina /use of sl nitroglycerin. Mediterranean diet guidelines briefly reviewed. Given parameters for home exercise. Phase II Referral: Participation in the outpatient cardiac rehabilitation program at [facility] was discussed. Patient agrees to a referral to this program. The referral will be sent at discharge and the patient should be contacted by the Program within 1- 2 weeks from discharge. Activity Summary: By discharge, patient will be able to perform self care, walk 5-7 minutes and go up and down stairs without signs or symptoms of ischemia. Activity Baseline Response 5 min walk HR 82 92 stairs BP 134/44 146/56 O2 Sat RA 99 RA 100 ECG Vent big Vent big Symptoms/Comments: Pt c/o feeling light headed on stairs-had to sit twice While coming down the stairs. She stated after we returned,that she felt anxious about decending thestairs-denied chest pressure or other anginal s/s. She stated her throat felt full which seems to correlate with her vent bigem rhythm. When she returned to [facility], the throat fullness disappeared. Md aware Plan of Care - Alesha Gottlieb RN - 02/17/2019 4:18 AM EDT Problem: Patient Care Overview Goal: Plan of Care Review 02/14/1922602/16/191999 Coping/Psychosocial Plan Of Care Reviewed With -- patient Plan of Care Review Progress progress towards functional goals is fair -- OUTCOME EVALUATION NOTE: OUTCOME SUMMARY: Pt A&Ox4, denies pain, SOB or new issues overnight. VS as documented, slept between care. Telemetry reviewed, see tele report. R TR band removed, dsng CDI, no issues PLAN MOVING FORWARD: ? D/c home today INDIVIDUALIZED FALL PREVENTION INTERVENTIONS: Patient-specific fall risk factors per assessment: [current deficits]: Telemetry cords Assistance [level of assistance required for transfers and ambulation]: Indep Supervision [direct monitoring required during toileting and ADLs]: Eyes on Surveillance [continuous indirect monitoring]: Telemetry Patient-specific fall prevention interventions for sensory deficits provided, if applicable: Non skids socks when OOB, room near nurses station, purposeful rounding, personal belongings within reach. CPG GOAL OUTCOME EVALUATION: Goal: Fall Prevention-Safe Patient Handling 02/16/1981602/16/191999 Daily Care Interventions Self-Care Promotion independence encouraged -- [place] Fall Risk History of Falling -- 0 Secondary Diagnosis -- 15 Ambulatory Aids -- 0 Intravenous Therapy/Heparin/Saline Lock -- 20 Gait/Transferring -- 0 Mental Status -- 0 Score -- 35 OTHER [place] Fall Risk -- Med Restraint Interventions Safety Promotion/Fall Prevention -- activity supervised;nonskid shoes/slippers when out of bed Positioning Body Position independent -- Activity Activity Type -- ambulated in room;ambulated to bathroom Activity Assistance Provided -- independent Assistive Device Utilized -- none Goal: Infection Control 02/16/191999 Coping Strategies Supportive Measures active listening utilized;self-care encouraged Safety Interventions Isolation Precautions standard precautions maintained Infection Prevention rest/sleep promoted;equipment surfaces disinfected Op Note - Mere Abbasi MD - 02/16/2019 4:45 PM EDT [facility] Operative Note Patient Name: Albina Tohmpson : [id number] MR#: [id number] Case Date: 02/16/2019 Surgeon: Surgeon(s) and Role: * Mere Abbasi MD - Primary * Harley Borrero MD - Fellow Preoperative diagnosis: 2 v CAD Postoperative diagnosis: Successful PCI to LAD and LCx POBA to D1 in severe instent restenosis (underexpansion present at time of initial PCI) HERMES to mid LAD and proximal LAD HERMES to proximal OM1 and OM2 Procedure(s) (LRB): CARDIAC CATHETERIZATION (N/A) STENT PLACEMENT-SINGLE MAJOR CORONARY ARTERY OR BRANCH (N/A) STENT PLACEMENT-EACH ADDITIONAL BRANCH OF A MAJOR CORONARY ARTERY (N/A) Access: Radial provided good support for procedure. 6 Fr RRA with TR band in place, good hemostasis. The patient tolerated the procedures smoothly and was transferred from the cardiac catheterization lab to the next level of care in stable condition, without pain. No evident early complications. Results discussed with referring bronc breaker Dr Burkett and Dr Hua, and with the patient and their family. A time-out was conducted prior to the start of the procedure to verify the correct patient and procedure, procedure location, and all relevant critical information. Full report to follow. MERE ABBASI MD Plan of Care - Alesha Gottlieb RN - 02/16/2019 4:29 AM EDT Problem: Patient Care Overview Goal: Plan of Care Review 02/14/19 0227 02/15/191999 Coping/Psychosocial Plan Of Care Reviewed With -- patient Plan of Care Review Progress progress towards functional goals is fair -- OUTCOME EVALUATION NOTE: OUTCOME SUMMARY: Pt A&Ox4, denies pain, SOB or new issues overnight. VS as documented, slept between care. Telemetry reviewed, see tele report. PLAN MOVING FORWARD: Plan for cath today INDIVIDUALIZED FALL PREVENTION INTERVENTIONS: Patient-specific fall risk factors per assessment: [current deficits]: Telemetry cords Assistance [level of assistance required for transfers and ambulation]: Indep Supervision [direct monitoring required during toileting and ADLs]: Eyes on Surveillance [continuous indirect monitoring]: Telemetry Patient-specific fall prevention interventions for sensory deficits provided, if applicable: Non skids socks when OOB, room near nurses station, purposeful rounding, personal belongings within reach. CPG GOAL OUTCOME EVALUATION: Goal: Fall Prevention-Safe Patient Handling 02/14/19199902/15/191999 Daily Care Interventions Self-Care Promotion independence encouraged -- [place] Fall Risk History of Falling -- 0 Secondary Diagnosis -- 15 Ambulatory Aids -- 0 Intravenous Therapy/Heparin/Saline Lock -- 20 Gait/Transferring -- 0 Mental Status -- 0 Score -- 35 OTHER [place] Fall Risk -- Med Restraint Interventions Safety Promotion/Fall Prevention -- activity supervised;safety round/check completed Positioning Body Position -- independent Activity Activity Type -- activity adjusted per tolerance;ambulated in room;ambulated to bathroom Activity Assistance Provided -- independent Assistive Device Utilized -- none Goal: Infection Control 02/14/19199902/15/191999 Coping Strategies Supportive Measures -- active listening utilized;self-care encouraged Safety Interventions Isolation Precautions standard precautions maintained -- Infection Prevention -- rest/sleep promoted;equipment surfaces disinfected Care Management - Pierce Randall, RN - 02/15/2019 3:31 PM EDT IDR Rounds:Multivessel CAD Per provider - plan for c/s Cardiac surgery Services: will need VNA after surgery Transport: Spouse A member of the Care Management team will continue to monitor progress, follow for continuity of care and assist with transition of care planning. Consult Note - Jong Torres MD - 02/15/2019 1:50 PM EDT Cardiac Surgery Consultation Note Albina Thompson is seen at the request of Dr. Hua for the evaluation of CAD for open revascularization. HPI: Albina Thompson is a 73 y.o. female with PMHx CAD s/p PCI (mid LAD stent x2, ostial D2 stent x1, 2005 at [facility]), HTN, HLD, asthma on multiple inhalers, hypothyroid, ocular rosacea, strong family hx of CAD. She has experienced palpitations with occasional chest pressure x 6 months and opted for medical management (failed Imdur trial, c/o diarrhea with amlodipine). Her symptoms have worsened and she has been experiencing symptoms at rest x 6 weeks. On 02/13 her pain woke her from sleep and she presented to [place] ED, troponin negative, given ticagrelor 180mg x 1, started hep gtt, and transferred to [facility]. TTE 02/14 - EF 72%, no WMAs, no valvular disease Cath 02/15 - report pending EKG 02/15 - NSR 60s Cr - 0.59 LFTs - WNL Ticagrelor: 02/13: 180mg in AM ([place]), 90mg in PM ([facility]) 02/14: 90mg in AM, 90mg in PM 02/15: 90mg in AM Asthma: Of note, she uses inhalers at home, has received prednisone (60mg x 6) while in-house. She lives at home with , able to perform ADLs independently though uses cane when outside thehouse as she feels off balance. 5 of 6 children live nearby. Denies active chest pressure though endorses ongoing intermittent palpitations. Review of Symptoms: Constitutional - +fatigue, +intentional 10lb weight loss. HEENT - No double vision or vision loss. +mild hearing loss does not use hearing aids, no recent URIsymptoms. Cardiovascular - See HPI. Pulmonary - +asthma, uses inhalers regularly. No cough, hemoptysis, wheeze, pneumonia. GI - No abdominal pain, constipation, diarrhea, blood in stool, vomiting, hematemesis, difficulty swallowing - No urgency, frequency, dysuria, hematuria, nocturia. Musculoskeletal - +fibromyalgia with shoulder pain, back pain. No new muscle pain or limitation of motion. Extremities - No edema, no varicosities. Neuro - No confusion, syncope, paresthesias, weakness, seizures. +mild gait disturbance uses cane when outside the house Hematologic - No abnormal clotting, easy bruising or previous bleeding issues. Problem List: Patient Active Problem List Diagnosis ??? Angina at rest ??? Hypothyroidism ??? Essential hypertension ??? 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 Asthma ??? Hyperlipidemia ??? Posterior tibial tendon dysfunction ??? Ocular rosacea Past Medical History: Past Medical History: Diagnosis Date ??? Asthma 12/05/2017 ??? 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 Essential hypertension 12/05/2017 ??? Hyperlipidemia 12/05/2017 ??? Hypothyroidism 12/05/2017 (+) as above (-) stroke, COPD, diabetes, cancer, coagulopathy, hepatic or renal dysfunction Pt under impression she has liver disease d/t tetracyclines x10 yrs. LFTs normal. Past Surgical History: No past surgical history on file. (+) PCI x3 (2005, 2 to mid LAD, 1 to ostial D2) (+) remote tonsillectomy (+) remote cholecystectomy (+) wrist surgery (-) previous chest surgery, abdominal surgery, vein, or other vascular surgery Social History: Social History Tobacco Use ??? Smoking status: Never Smoker ??? Smokeless tobacco: Never Used Substance Use Topics ??? Alcohol use: Yes Frequency: Monthly or less Drinks per session: 1 or 2 Binge frequency: Never Comment: rare at a holiday ??? Drug use: No Social History Social History Narrative Lives with in [place], [place]. Has 6 children (2 sets of twins-one fraternal and one set identical). 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 Has 6 children (her last 2 pregnancies were both sets of twins)-- 5 of which live nearby and the 6th lives in [place]. Has 10 grandchildren Smoking - never smoker ETOH - denies Illicit drug use - denies Restorationist - denies Family History: Family History Problem Relation Age of Onset ??? Hypertension Mother ??? Asthma Mother ??? Hypertension Father ??? Heart Disease Father ??? Hyperlipidemia Father ??? Myocardial Infarction Father [place] at age 40 and at age 60 ??? Heart Disease Sister ??? Heart Disease Brother [place] at 48 ??? Hypertension Brother ??? Hypertension Maternal Grandfather ??? Heart Disease Maternal Grandfather ??? Hyperlipidemia Maternal Grandfather ??? Heart Disease Paternal Grandmother ??? Hypertension Paternal Grandfather ??? Heart Disease Paternal Grandfather ??? Hyperlipidemia Paternal Grandfather ??? Cancer Neg Hx (+) strong family hx CAD in father's side Meds Prior to Admission: Medications Prior to Admission Medication Sig Dispense Refill Last Dose ??? CRESTOR 5 mg Tablet Take 0.5 tablets by mouth nightly. 9 ??? losartan (COZAAR) 50 mg Tablet Take 1 tablet by mouth daily. 90 tablet 3 ??? acetaminophen (TYLENOL) 500 mg Tablet Take 1,000 mg by mouth every 6 hours as needed for Pain. Taking ??? VENTOLIN HFA 90 mcg/actuation HFA Aerosol Inhaler Inhale 2 puffs into the lungs 2 times daily asneeded. 1 Taking ??? metoprolol succinate (TOPROL-XL) 25 mg Tablet Sustained Release 24 hr Take 1 tablet by mouth daily. 90 tablet 3 Taking ??? nitroGLYcerin (NITROSTAT) 0.4 mg Tablet, Sublingual Place 1 tablet under the tongue every 5 minutes as needed for Chest pain. 90 tablet 3 Taking ??? vit A/C/E ac/ZnOx/cupric oxide (EYE VITAMIN AND MINERALS ORAL) Take 1 capsule by mouth daily. Taking ??? fluticasone (FLONASE) 50 mcg/actuation [place], Suspension 2 sprays by Each Nare route nightly. Taking ??? cyclobenzaprine (FLEXERIL) 5 mg Tablet Take 5 mg by mouth 3 times daily as needed for Muscle spasms. Taking ??? cycloSPORINE (RESTASIS) 0.05 % Dropperette 1 drop 2 times daily. Taking ??? albuterol (PROVENTIL) 2.5 mg /3 mL (0.083 %) Solution for Nebulization Take 2.5 mg by nebulization every 4 hours as needed for Wheezing. Taking ??? aspirin 81 mg Tablet, Delayed Release (E.C.) Take 81 mg by mouth daily. Taking ??? cholecalciferol, Vitamin D3, (CHOLECALCIFEROL, VITAMIN D3,) 2,000 unit Capsule Take 2,000 Units by mouth 2 times daily. Taking ??? ubiquinone (COENZYME Q10) 10 mg Capsule Take 100 mg by mouth daily. Taking ??? ADVAIR DISKUS 250-50 mcg/dose Disk with Device Inhale 1 puff into the lungs 2 times daily. 0 Taking ??? montelukast (SINGULAIR) 10 mg Tablet Take 10 mg by mouth nightly. 1 Taking ??? ranitidine (ZANTAC) 150 mg Tablet Take 150 mg by mouth 2 times daily. 1 Taking ??? levothyroxine (SYNTHROID) 75 mcg tablet 75mcg, PO, Once daily Taking Current Meds: Scheduled Meds: ??? budesonide-formoterol 2 Inhalation Inhalation BID ??? aspirin 81 mg Oral Daily ??? cholecalciferol (Vitamin D3) 2,000 Units Oral BID ??? rosuvastatin 5 mg Oral QPM ??? cycloSPORINE 1 drop Both Eyes BID ??? fluticasone propionate 2 spray Each Nare Nightly ??? levothyroxine 75 mcg Oral QAM ??? losartan 50 mg Oral Daily ??? montelukast 10 mg Oral Nightly ??? ubiquinone (coenzyme Q10) 100 mg Oral Daily ??? famotidine 20 mg Oral BID ??? docusate sodium 100 mg Oral BID ??? metoprolol tartrate 12.5 mg Oral Q6H CAITLYN ??? ticagrelor 90 mg Oral BID ??? multivitamin with minerals 1 tablet Oral Daily Continuous Infusions: ??? sodium chloride 0.9% 50 mL/hr (02/14/19 2339) ??? heparin (porcine) 900 Units/hr (02/14/19 1622) ??? nitroGLYcerin Stopped (02/15/19 0800) PRN Meds:.heparin (porcine) AND heparin (porcine), acetaminophen, albuterol, nitroGLYcerin Allergies: Allergies Allergen Reactions ??? Pneumax [Phenylephrine-Guaifenesin] Rash Swelling ??? Oxycodone ??? Persantine [Dipyridamole] ??? Povidone-Iodine ??? Shellfish Derived crushing chest pain ??? Simvastatin myalgia ??? Thallium-201 ??? Iodine And Iodide Containing Products Reported chest pressure while eating lobster. Physical Exam: BP 169/67 (BP Location (NBP): Left leg, Patient Position: Lying) Comment (BP Location (NBP)): lower Pulse 82 Temp 36.8 ??C (98.2 ??F) (Oral) Resp 18 Ht 154.9 cm (5' 1) Wt 68.5 kg (151 lb 0.2oz) LMP (LMP Unknown) SpO2 95% BMI 28.53 kg/m?? General: Sitting up in bed. NAD. Appears stated age. Neuro: Awake and alert. CN II-XII intact. Moves all extremities with grossly normal strength. Heart: RRR, S1/S2. NSR 70s on monitor with PVCs Lungs: CTA. No wheezes, crackles, rhonchi. Abdomen: Soft, NT/ND. Normoactive bowel sounds. Extremities: Warm, well perfused, no clubbing, cyanosis, or edema. No varicosities, +mild superficial telangectasias. Diagnostics: Lab Results Component Value Date WBC 13.8 (H) 02/15/2019 RBC 3.80 (L) 02/15/2019 HGB 11.7 02/15/2019 HCT 33.5 (L) 02/15/2019 PLATELET 230 02/15/2019 Recent Labs 02/13/19 1553 INR 1.1 Lab Results Component Value Date NA 142 02/15/2019 K 3.9 02/15/2019 CL 108 (H) 02/15/2019 CO2 21 (L) 02/15/2019 BUN 19 (H) 02/15/2019 CREATININE 0.59 (L) 02/15/2019 CXR: None in system EKG (02/15/19): NSR 60s CATH (02/15/19): Completed 02/15, report pending TTE (02/14/19): SUMMARY: 1. The left ventricular chamber size is normal. Left ventricular wall thickness is normal. There is normal global left ventricular systolic function. The quantitative left ventricular ejection fraction by biplane Smith's method is 72%. There are no left ventricular segmental wall motion abnormalities. Assessment of diastolic function is indeterminate. ?? 2. The left atrium is mildly dilated. 3. The right ventricle is normal in size. Right ventricular global systolic function is normal. The estimated pulmonary artery systolic pressure is 25 mmHg. 4. There is no hemodynamically significant valve disease. Assessment and Plan: 73 y.o. female with PMHx CAD s/p PCI (mid LAD stent x2, ostial D2 stent x1, 2005 at [facility]), HTN, HLD, asthma on multiple inhalers, hypothyroid, ocular rosacea, strong family hx of CAD. Cath report pending but preliminary with multivessel CAD. EF 72%, no WMA, no valvular disease. Pt onticagrelor BID x 3 days If proceeding with surgery: -Pre-op BB, ASA, Statin -Hold FEROZ/ARB the day before surgery -CXR, UA, T&S -No further ticagrelor -Surgical candidacy, timing, and/or further recommendations will be determined by the Attending Surgeon, Dr. Torres. Signed: VIDHI Hager 02/15/2019 Cardiac Surgery Attending History and physical as per VIDHI Bah-C Briefly, 73 year-old woman with UA underwent LHC today showing multi-vessel CAD on the diagonal, circumflex, and LAD. Met with patient and Dr. Abbasi. Patient has strong preference for PCI. Risks and benefits of CABG vs. PCI discussed with patient. JONG TORRES MD Initial Assessments - Pierce Randall, RN - 02/15/2019 11:56 AM EDT Office of Care Management Initial Assessment Pierce Randall RN reviewed record and discussed patient with Care Team. Source of Information: patient and spouse Introduced self/reviewed role; services accepted. Reason for Hospitalization: Reason for Admission as Stated by Patient: palpitations Evaluation and management of accelerating angina S/p cardiac catheterization Multivessel CAD - CT surgery consult per cardio note Past Medical History: Diagnosis Date ??? Asthma 12/05/2017 ??? 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 Essential hypertension 12/05/2017 ??? Hyperlipidemia 12/05/2017 ??? Hypothyroidism 12/05/2017 Hospitalizations Within the Past 30 Days: none Anticipated Length Of Stay (If known): 2-3 days Current Decision-Making Capacity: A and O x 3 Advance Care Planning: ON File Current Coping/Education/Information Needs: patient denies Current Functional Ability: up in room, Functional Status Prior to Admission: independent at home Home Environment: lives in a 2 story home with and a rabbit. Social & Family Supports/Community Resources: her spouse Behavioral Health History: denies Substance Use/Abuse: denies Health/Prescription Coverage: Primary Insurance: MEDICARE Secondary Insurance: [employer] [facility] Prescription Coverage: yes Preferred Pharmacy: [place], [place] Primary Care Provider: Quin Rojas MD [phone] Patient/Caregiver Goals of Treatment: to return home. Potential Needs for Transition of Care: Rehab/SNF: n/a Home Health: TBD after surgery consult DME: n/a Dialysis: n/a Community Resources: n/a Transportation: her spouse by car Anticipated Barriers to Discharge/Special Considerations: none if surgery happens will need Home Health Assessment: Ruled out for [place]. Was sent for cardiac catheterization today and was found to have multivessel CAD, as outlined in above operative report. She will be seen by the CT surgery team in consult today. Plan: will need home health care for after surgery A member of the Care Management team will continue to monitor progress, follow for continuity of care and assist with transition of care planning. Pierce Randall RN Pager: [phone] Op Note - Mere Abbasi MD - 02/15/2019 9:17 AM EDT [facility] Operative Note Patient Name: Albina Thompson : [id number] MR#: [id number] Case Date: 02/15/2019 Surgeon: Surgeon(s) and Role: * Mere Abbasi MD - Primary * Diego Meade MD - Fellow Preoperative diagnosis: ?CAD Postoperative diagnosis: CAD, positive iFR of diagonal and mid LAD; obstructive disease of LCx; negative iFR of RCA Recommend shared decision making approach for PCI v CABG. Dr Meade to leave note regarding SYNTAX score, and PCI risk assessments, and we will meet with patient and her this afternoon. Procedure(s) (LRB): CARDIAC CATHETERIZATION (N/A) Access: Radial provided good support for procedure. 6 Fr RRA with TR band in place, good hemostasis. The patient tolerated the procedures smoothly and was transferred from the cardiac catheterization lab to the next level of care in stable condition, without pain. No evident early complications. Results discussed with service bronc breaker Dr Hua and with the patient and their family. Note sent to Dr Burkett. A time-out was conducted prior to the start of the procedure to verify the correct patient and procedure, procedure location, and all relevant critical information. Full report to follow. MERE ABBASI MD Consult Note - Shana Urbano RN - 02/15/2019 4:55 AM EDT Images from the original note were not included. Infiltration/Extravasation Scale Albina Thompson [id number] Infiltration appearance: Infiltration harm % for this extremity 18% Based on measurement calculation (greatest measurement X divided by length of extremity multiplied by 100= %) Considerations and Andrade: Consider the following: If the percentage of limb affected is <5% then select 1 If the percentage of limb affected is 6-25% then select 2 If the percentage of limb affected is 26-49% then select 3 If the percentage of limb affected is > 50% then always select 4 0 No symptoms 1 Skin blanched Edema < 1 inch (2.5 cm) in any direction Cool to touch With or without pain 2 Skin blanched Edema 1 to 6 inches (2.5 to 15 cm) in any direction Cool to touch With or without pain 3 Skin blanched, translucent Gross edema > 6 inches (15 cm) in any direction Cool to touch Mild to moderate pain Possible numbness 4 Skin blanched, translucent Skin tight, leaking Skin discolored, bruised, swollen Gross edema > 6 inches in any direction Deep pitting tissue edema Circulatory impairment Moderate to severe pain Skin Blisters Skin Necrosis/Breakdown/Sloughing Infiltration appearance score: 2 Medication Name infiltrated is nitroglycerin which is a vesicant Location of infiltration: Left AC Measurement in cm of length and width of affected area---Affected extremity left 11 cm x 11 cm, 22 above the wrist circumference is 29 cm, 5 cm above the AC 26.5cm, wrist circ. 17.5 cm Measurement of Circumference in cm of Infiltrated area of affected extremity 29cm Measurement of Circumference in cm of Unaffected extremity 22 cm above the wrist 26.5 cm, 5 cm abovethe AC 26 cm, wrist 17cm Pulses present on affected extremity yes Medicated treatment given per policy/ order: Hyaluronidase Plan for continued monitoring of infiltration/extravasation Name of MD contacted Beeper [id number] 4:55 AM Name of RN contacted LONNIE Salcido 4:55 AM Name of Pharmacist if consulted no 4:55 AM Plastics Provider contacted: no 4:55 AM Name of Plastics MD (if consulted) PHOTO TO BE ADDED HERE (Mandatory photo for infiltrations/ extravasations scoring a stage 2 or greater, but recommended forstage 1. Include measuring tape and identifier in the photo) FIRE POT OPERATOR CARING FOR THIS PATIENT WILL CONTINUE TO MONITOR AND WILL ASSUME CARE, VASCULAR ACCESS WILL NOT FOLLOW THIS EVENT AT THE SIGNING OF THIS NOTE. Plan of Care - Omari Pollard RN - 02/15/2019 3:56 AM EDT Problem: Patient Care Overview Goal: Plan of Care Review Outcome: Ongoing (Interventions Implemented as Appropriate) 02/14/19 0227 02/14/191999 Coping/Psychosocial Plan Of Care Reviewed With -- patient Plan of Care Review Progress progress towards functional goals is fair -- OUTCOME EVALUATION NOTE: OUTCOME SUMMARY: Albina had a good night. VS/I&O as documented, see flowsheet. NSR with occasional PVCs on telemetry, see scanned docs. Pt denies CP and SOB. Nitroglycerin gtt rate maintained throughout the night, see MAR. Pre cath fluids started as ordered, see MAR. Left PIV infiltrated, IV team paged and to the b edside to remove PIV. See IV team note for further detail. Call douglas within reach. Will continue to monitor. PLAN MOVING FORWARD: Cardiac cath. Discharge Planning. CPG GOAL OUTCOME EVALUATION: Ongoing. Goal: Fall Prevention-Safe Patient Handling Outcome: Ongoing (Interventions Implemented as Appropriate) 02/14/19199902/14/19 2338 Daily Care Interventions Self-Care Promotion independence encouraged -- [place] Fall Risk History of Falling 0 -- Secondary Diagnosis 15 -- Ambulatory Aids 0 -- Intravenous Therapy/Heparin/Saline Lock 20 -- Gait/Transferring 0 -- Mental Status 0 -- Score 35 -- OTHER [place] Fall Risk Med -- Restraint Interventions Safety Promotion/Fall Prevention -- safety round/check completed Positioning Body Position independent -- Activity Activity Type activity adjusted per tolerance -- Activity Assistance Provided independent -- Assistive Device Utilized none -- Goal: Infection Control Outcome: Ongoing (Interventions Implemented as Appropriate) 02/14/191999 Coping Strategies Supportive Measures active listening utilized;self-care encouraged;verbalization of feelings encouraged Safety Interventions Isolation Precautions standard precautions maintained Infection Prevention rest/sleep promoted;environmental surveillance performed Plan of Care - Rick Mehta APRN - 02/14/2019 5:05 PM EDT Images from the original note were not included. Cardiac cath Pre Procedure Note The indications, expected benefits and potential risks of heart catheterization were reviewed in detail with the patient. The potential for , heart attack, stroke, kidney failure, hemorrhage, allergic reaction, vascular complications and infection were reviewed in detail. The possibility of stenting and other percutaneous intervention with associated risk was reviewed. The possible need for emergent coronary artery bypass surgery was reviewed. After a discussion about the above, and having answered all questions posed, the patient was provided with a consent which was reviewed and signed. ASA: 2: Patient with mild systemic disease Mallampati: III: only the base of the uvula can be seen Sedation Plan: moderate (conscious sedation) Assessment and Plan: Proceed with cardiac cath today, see progress note from today for further details. RICK MEHTA APRN 02/14/2019 Pager [phone] Plan of Care - Kole Nichole RN - 02/14/2019 2:22 PM EDT Problem: Patient Care Overview Goal: Plan of Care Review Outcome: Ongoing (Interventions Implemented as Appropriate) 02/14/19226 Coping/Psychosocial Plan Of Care Reviewed With patient Plan of Care Review Progress progress towards functional goals is fair OUTCOME EVALUATION NOTE: OUTCOME SUMMARY: Patient cont on a heparin and nitro drip waiting to go to the cardiac catheterization technician. Patient appears comfortable but when asked, states she has some pain on and off, but in general she doen't have pain as long as she does not move. PLAN MOVING FORWARD: Cont to monitor, patient to have cardiac cath tomorrow. INDIVIDUALIZED FALL PREVENTION INTERVENTIONS: Patient-specific fall risk factors per assessment: [current deficits]: Tethered to iv pole. Assistance [level of assistance required for transfers and ambulation]: standby Supervision [direct monitoring required during toileting and ADLs]: Call douglas Surveillance [continuous indirect monitoring]: Hourly rounds Patient-specific fall prevention interventions for sensory deficits provided, if applicable: CPG GOAL OUTCOME EVALUATION: Goal: Fall Prevention-Safe Patient Handling Outcome: Ongoing (Interventions Implemented as Appropriate) 02/13/19194202/14/1922602/14/19421 Daily Care Interventions Self-Care Promotion -- independence encouraged -- [place] Fall Risk History of Falling -- -- -- Secondary Diagnosis -- -- -- Ambulatory Aids -- -- -- Intravenous Therapy/Heparin/Saline Lock -- -- -- Gait/Transferring -- -- -- Mental Status -- -- -- Score -- -- -- OTHER [place] Fall Risk -- -- -- Restraint Interventions Safety Promotion/Fall Prevention -- -- -- Positioning Body Position -- -- independent Activity Activity Type activity adjusted per tolerance -- -- Activity Assistance Provided independent -- -- Assistive Device Utilized none -- -- 02/14/19 0800 Daily Care Interventions Self-Care Promotion -- [place] Fall Risk History of Falling 0 Secondary Diagnosis 15 Ambulatory Aids 0 Intravenous Therapy/Heparin/Saline Lock 20 Gait/Transferring 0 Mental Status 0 Score 35 OTHER [place] Fall Risk Med Restraint Interventions Safety Promotion/Fall Prevention safety round/check completed Positioning Body Position -- Activity Activity Type -- Activity Assistance Provided -- Assistive Device Utilized -- Goal: Infection Control Outcome: Ongoing (Interventions Implemented as Appropriate) 02/13/19194202/14/19226 Coping Strategies Supportive Measures -- active listening utilized;self-care encouraged;verbalization of feelings encouraged Safety Interventions Isolation Precautions standard precautions maintained -- Infection Prevention rest/sleep promoted;environmental surveillance performed -- Plan of Care - Omari Pollard RN - 02/14/2019 2:55 AM EDT Problem: Patient Care Overview Goal: Plan of Care Review Outcome: Ongoing (Interventions Implemented as Appropriate) 02/14/19226 Coping/Psychosocial Plan Of Care Reviewed With patient Plan of Care Review Progress progress towards functional goals is fair OUTCOME EVALUATION NOTE: OUTCOME SUMMARY: Albina had a good night. VS/I&O as documented, see flowsheet. NSR with intermittently frequent PACs and intermittent bigeminy on telemetry, see scanned docs. Pt denies CP and SOB. Hypotensive during the night, MD notified, Nitroglycerin gtt titrated down, see flowsheet/MAR. At 0620, pt reports chest pressure, MD notified and came to bedside. EKG done and Troponin collected, NTG gtt titrated up, see MAR. UFH therapeutic x1, rate unchanged overnight, will continue to monitor. Pre cath IVF started as ordered, see MAR. Pt reports headache, given PRN Tylenol x1, see MAR. Call douglas within reach. Willcontinue to monitor. PLAN MOVING FORWARD: Cardiac cath. Discharge Planning. CPG GOAL OUTCOME EVALUATION: Ongoing. Goal: Fall Prevention-Safe Patient Handling Outcome: Ongoing (Interventions Implemented as Appropriate) 02/13/19194202/13/19219902/14/19226 Daily Care Interventions Self-Care Promotion -- -- independence encouraged [place] Fall Risk History of Falling 0 -- -- Secondary Diagnosis 15 -- -- Ambulatory Aids 0 -- -- Intravenous Therapy/Heparin/Saline Lock 20 -- -- Gait/Transferring 0 -- -- Mental Status 0 -- -- Score 35 -- -- OTHER [place] Fall Risk Med -- -- Restraint Interventions Safety Promotion/Fall Prevention -- safety round/check completed -- Positioning Body Position -- independent -- Activity Activity Type activity adjusted per tolerance -- -- Activity Assistance Provided independent -- -- Assistive Device Utilized none -- -- Goal: Infection Control Outcome: Ongoing (Interventions Implemented as Appropriate) 02/13/19194202/14/19226 Coping Strategies Supportive Measures -- active listening utilized;self-care encouraged;verbalization of feelings encouraged Safety Interventions Isolation Precautions standard precautions maintained -- Infection Prevention rest/sleep promoted;environmental surveillance performed -- documented in this encounter Plan of Treatment Upcoming Encounters Date Type Specialty Care Team Description 09/02/2022 Office Visit Cardiology Patrice Burkett MD [facility] [address] [place] [address] (Wo rk) 11/25/2022 Office Visit Dermatology Kole Mccain MD [address] [facility] DERMATOLOGY [place], [place] [address] (Wo rk) Scheduled Referrals Name Type Priority Associated Diagnoses Order S chedule Referral to Outpatient Referral Routine ASCVD (arteriosclerot ic Ordered: Cardiac Rehab cardiovascular disease) 01/2019 documented as of this encounter Procedures Procedure Name Priority Date/Time Associated Diagnosis Comme nts EKG 12-LEAD Routine 10/20/2019 1:30 ASCVD Results for this PM EDT (arteriosclerotic procedure are in cardiovascular the results disease) section. EKG 12-LEAD Routine 02/17/2019 7:20 ASCVD Results for this AM EDT (arteriosclerotic procedure are in cardiovascular the results disease) section. HC VENIPUNCTURE Routine 02/17/2019 3:41 Results f or this AM EDT procedure are i n the results section. HEMOGRAM Routine 02/17/2019 3:41 Results for this AM EDT procedure are i n the results section. DIFFERENTIAL, AUTOMATED Routine 02/17/2019 3:41 R esults for this AM EDT procedure are i n the results section. HC CBC,PLT & AUTO DIFF Routine 02/17/2019 3:41 AM EDT HC MAGNESIUM, SERUM Routine 02/17/2019 3:41 Resul ts for this AM EDT procedure are i n the results section. EKG 12-LEAD Routine 02/16/2019 5:09 ASCVD Results for this PM EDT (arteriosclerotic procedure are in cardiovascular the results disease) section. CARDIAC CATHETERIZATION Routine 02/16/2019 4:48 R esults for this PM EDT procedure are i n the results section. EKG 12-LEAD Routine 02/16/2019 6:40 ASCVD Results for this AM EDT (arteriosclerotic procedure are in cardiovascular the results disease) section. HC VENIPUNCTURE Routine 02/16/2019 4:10 Results f or this AM EDT procedure are i n the results section. HEMOGRAM Routine 02/16/2019 4:10 Results for this AM EDT procedure are i n the results section. DIFFERENTIAL, AUTOMATED Routine 02/16/2019 4:10 R esults for this AM EDT procedure are i n the results section. HC CBC,PLT & AUTO DIFF Routine 02/16/2019 4:10 AM EDT HC MAGNESIUM, SERUM Routine 02/16/2019 4:10 Resul ts for this AM EDT procedure are i n the results section. CARDIAC CATHETERIZATION Routine 02/15/2019 9:20 R esults for this AM EDT procedure are i n the results section. EKG 12-LEAD Routine 02/15/2019 7:01 ASCVD Results for this AM EDT (arteriosclerotic procedure are in cardiovascular the results disease) section. HC UNFRACTIONATED STAT 02/15/2019 4:45 Results for this HEPARIN (HEP UFH) AM EDT procedure are in the results section. BMP W/FASTING GLUCOSE Routine 02/15/2019 4:45 Res ults for this AM EDT procedure are i n the results section. HEMOGRAM Routine 02/15/2019 4:45 Results for this AM EDT procedure are i n the results section. DIFFERENTIAL, AUTOMATED Routine 02/15/2019 4:45 R esults for this AM EDT procedure are i n the results section. HC CBC,PLT & AUTO DIFF Routine 02/15/2019 4:45 AM EDT HC MAGNESIUM, SERUM Routine 02/15/2019 4:45 Resul ts for this AM EDT procedure are i n the results section. HC VENIPUNCTURE Timed 02/14/2019 7:49 Results f or this PM EDT procedure are i n the results section. HC VENIPUNCTURE Timed 02/14/2019 1:59 Results f or this PM EDT procedure are i n the results section. ECHOCARDIOGRAM COMPLETE Routine 02/14/2019 9:51 ASCVD R esults for this AM EDT (arteriosclerotic procedure are in cardiovascular the results disease) section. HC UNFRACTIONATED STAT 02/14/2019 6:44 Results for this HEPARIN (HEP UFH) AM EDT procedure are in the results section. HC VENIPUNCTURE Routine 02/14/2019 6:44 Results f or this AM EDT procedure are i n the results section. HEMOGRAM Routine 02/14/2019 6:44 Results for this AM EDT procedure are i n the results section. DIFFERENTIAL, AUTOMATED Routine 02/14/2019 6:44 R esults for this AM EDT procedure are i n the results section. HC CBC,PLT & AUTO DIFF Routine 02/14/2019 6:44 AM EDT HC TROPONIN T STAT 02/14/2019 6:44 Results for this AM EDT procedure are i n the results section. HC TRIGLYCERIDES Routine 02/14/2019 6:44 Results for this AM EDT procedure are i n the results section. HC MAGNESIUM, SERUM Routine 02/14/2019 6:44 Resul ts for this AM EDT procedure are i n the results section. HC LDL CHOLESTEROL, Routine 02/14/2019 6:44 Resul ts for this DIRECT AM EDT procedure are i n the results section. HC CHOLESTEROL Routine 02/14/2019 6:44 Results fo r this AM EDT procedure are i n the results section. HC HEMOGLOBIN A1C Routine 02/14/2019 6:44 Results for this AM EDT procedure are i n the results section. EKG 12-LEAD STAT 02/14/2019 6:29 ASCVD Results for this AM EDT (arteriosclerotic procedure are in cardiovascular the results disease) section. HC VENIPUNCTURE Timed 02/14/2019 12:52 Results for this AM EDT procedure are i n the results section. HC VENIPUNCTURE STAT 02/13/2019 9:30 Results f or this PM EDT procedure are i n the results section. HC UNFRACTIONATED STAT 02/13/2019 3:53 Results for this HEPARIN (HEP UFH) PM EDT procedure are in the results section. HC PARTIAL STAT 02/13/2019 3:53 Results for this THROMBOPLASTIN TIME PM EDT procedur e are in the results section. HC PROTHROMBIN TIME STAT 02/13/2019 3:53 Resul ts for this PM EDT procedure are i n the results section. HC TROPONIN T STAT 02/13/2019 3:53 Results for this PM EDT procedure are i n the results section. HEPATIC FUNCTION PANEL STAT 02/13/2019 3:53 Re sults for this PM EDT procedure are i n the results section. LIPID PANEL (REFLEX STAT 02/13/2019 3:53 Resul ts for this DIRECT LDL) PM EDT procedure are i n the results section. EKG 12-LEAD STAT 02/13/2019 3:14 ASCVD Results for this PM EDT (arteriosclerotic procedure are in cardiovascular the results disease) section. documented in this encounter Results EKG 12 Lead (10/20/2019 1:30 PM EDT) Component Value Ref Range Test Analysis Performed Pathologis t Method Time At Signature Ventricular rate 75 BPM MUSE SYSTEM Atrial Rate 75 BPM MUSE SYSTEM P-R Interval 164 ms MUSE SYSTEM QRS Duration 90 ms MUSE SYSTEM Q-T Interval 364 ms MUSE SYSTEM QTC Calculated 406 ms MUSE SYSTEM (Bezet) Calculated P 64 degrees MUSE SYSTEM Monroe Calculated R 36 degrees MUSE SYSTEM Monroe Calculated T 61 degrees MUSE SYSTEM Monroe INTERPRETATION Normal sinus rhythm MUSE SYSTEM Normal ECG When compared with ECG of 17-MAY-2019 11:28, Premature supraventricular complexes are no longer Present Nonspecific T wave abnormality no longer evident in Lateral leads Confirmed by MD Madelaine, Patrice ([id number]) on 10/20/2019 3:48:37 PM Specimen Anatomical Collection Method Collection Time Receive d Time (Source) Location / / Volume Laterality 10/20/2019 1:30 PM 0 3:48 EDT PM EDT Rick Chris Cathi RELOCATION SERVICES SPECIALIST ECG ORDERABLES Performing Organization Address City/State/ZIP Code Phon e Number MUSE SYSTEM EKG 12 Lead (02/17/2019 7:20 AM EDT) Component Value Ref Range Test Analysis Performed Pathologis t Method Time At Signature Ventricular rate 59 BPM MUSE SYSTEM Atrial Rate 59 BPM MUSE SYSTEM P-R Interval 162 ms MUSE SYSTEM QRS Duration 90 ms MUSE SYSTEM Q-T Interval 392 ms MUSE SYSTEM QTC Calculated 388 ms MUSE SYSTEM (Bezet) Calculated P Monroe 42 degrees MUSE SYSTEM Calculated R Monroe 32 degrees MUSE SYSTEM Calculated T Monroe 50 degrees MUSE SYSTEM INTERPRETATION Sinus bradycardia MUSE SY STEM Otherwise normal ECG When compared with ECG of 16-FEB-2019 17:09, No significant change was found Confirmed by MD Jake, Diego ([id number]) on 02/17/2019 11:56:37 AM Specimen Anatomical Collection Method Collection Time Receive d Time (Source) Location / / Volume Laterality 02/17/2019 7:20 AM 9 EDT 11:56 AM EDT Rick Mehta RELOCATION SERVICES SPECIALIST ECG ORDERABLES Performing Organization Address City/State/ZIP Code Phon e Number MUSE SYSTEM Differential, Automated (02/17/2019 3:41 AM EDT) P athologist Signature Neutrophils % 65.1 % [facility] Neutr Abs (ANC) 4.66 1.70 - [facility] 6.10 [facility] x10(3)[facility] LABORATORY Lymphocytes % 22.7 % [facility] Lymphocytes Abs 1.6 0.9 - 3.2 [facility] x10(3)/[facility] LABORATORY Monocytes % 9.0 % [facility] Monocyte Abs 0.6 0.3 - 0.9 [facility] x10(3)/[facility] LABORATORY Eosinophils % 2.8 % [facility] Eosinophils Abs 0.2 0.0 - 0.4 [facility] x10(3)/[facility] LABORATORY Basophils % 0.1 % [facility] Basophils Abs 0.0 0.0 - 0.1 [facility] x10(3)/[facility] LABORATORY Immature Gran % 0.30 % [facility] Comment: Immature granulocytes(IG's)percentage an d absolute count will include metamyelocytes, myelocytes, and promyelo cytes. Blood smears from CBCs yielding IG's will be scanned manually for concor dance. If this scan disagrees with the automated IG or if promyelocytes are not ed, a manual differential will be performed. Edith Gran Abs 0.02 0.00 - 0.04 x10(3)/[facility] MAR Y [facility] Specimen Anatomical Collection Method Collection Time Receive d Time (Source) Location / / Volume Laterality Blood specimen 02/17/2019 3:41 AM 019 3:56 (specimen) EDT AM EDT Resulting Agency Comment Spec In Lab Rick Chris Cathi [facility] HEMATOLOGY ORDERABLES Performing Organization Address City/State/[place] [address] (ABNORMAL) Hemogram (02/17/2019 3:41 AM EDT) Analysis Performed At Patho logist Time Signature WBC 7.2 4.0 - 9.5 [facility](3[facility] LABORATORY RBC 3.77 (L) 4.00 - [place] 5.21 [facility] x10(6)/[facility] LABORATORY Hemoglobin 11.5 (L) 11.7 - [facility] 15.5 gm/dL [facility] Hematocrit 33.5 (L) 35.7 - [facility] 45.8 % [facility] MCV 88.9 82.6 - [facility] 94.4 [facility] MCH 30.5 27.1 - [place] 32.0 pg [facility] MCHC 34.3 31.7 - [facility] [place] 35.0 gm/dL [facility] Platelets 176 145 - 357 [facility] x10(3)/[facility] LABORATORY RDWSD 45.1 37.0 - [facility] [place] 46.0 [facility] LABORATORY RDWCV 13.9 11.5 - [facility] [place] 14.1 % [facility] MPV 9.9 7.6 - 12.9 [facility] nRBC % Auto 0.0 % [facility] nRBC Abs Auto 0.000 0.000 - [facility] [place] 0.000 [facility] x10(3)/[facility] LABORATORY Specimen Anatomical Collection Method Collection Time Receive d Time (Source) Location / / Volume Laterality Blood specimen 02/17/2019 3:41 AM 019 3:56 (specimen) EDT AM EDT Resulting Agency Comment Spec In Lab Rick FletcherLujan HEMATOLOGY ORDERABLES Performing Organization Address City/State/[place] [address] Magnesium (02/17/2019 3:41 AM EDT) P athologist Signature Magnesium 0.86 0.69 - 1.07 [facility] mmol/L [facility] Specimen Anatomical Collection Method Collection Time Receive d Time (Source) Location / / Volume Laterality Blood specimen 02/17/2019 3:41 AM 019 3:56 (specimen) EDT AM EDT Resulting Agency Comment Spec In Lab Rick Mehta RELOCATION SERVICES SPECIALIST CHEMISTRY ORDERABLES Performing Organization Address City/State/ZIP Code Phon e Number [place] [id number] (ABNORMAL) BMP w/fasting Glucose (02/17/2019 3:41 AM EDT) athologist Signature Glucose 96 65 - 99 [facility] Fasting mg/dL [facility] Comment: ?Fasting* Glucose Interpretive C riteria [...] of Diabetes Mellitus, Position Statement from the [place] [employer]. ??Diabete s Care, Volume 33, Supplement 1, May 2009 BUN 18 8 - 18 mg/dL [facility] Creatinine 0.60 (L) 0.70 - 1.20 mg/dL [facility] Sodium 142 135 - 145 mmol/L [facility] Potassium 4.0 3.5 - 5.0 mmol/L [facility] Comment: Please note: ??Patients with WBC >100,00 0 may have falsely elevated Potassium levels. ??For accurate Potassium quantif ication in these patients send serum separator tube (gold top) for subsequent determinations. ??Contact the Clinical Chemistry Laboratory if there are any qu estions. Chloride 108 (H) 98 - 107 mmol/L [facility] CO2 24 22 - 31 mmol/L [facility] Anion Gap 10 5 - 15 mmol/L [facility] Calcium 8.5 8.5 - 10.5 mg/dL [facility] Estimated GFR 89 >=60 mL/min/1.73 m?? [facility] Comment: The eGFR was calculated using the CKD-EP I equation. As with all creatinine based estimates of kidney function, eGFR values calculated with the CKD-EPI equation are not accurate in patients wi th acute kidney failure, extremes of body mass or the acutely ill. [email or web address]/TapFitnkf eGFR 103 >=60 mL/min/1.73 m?? [facility] Comment: The eGFR was calculated using the CKD-EP I equation. As with all creatinine based estimates of kidney function, eGFR values calculated with the CKD-EPI equation are not accurate in patients wi th acute kidney failure, extremes of body mass or the acutely ill. [email or web address] Specimen Anatomical Collection Method Collection Time Receive d Time (Source) Location / / Volume Laterality Blood specimen 02/17/2019 3:41 AM 019 3:56 (specimen) EDT AM EDT Resulting Agency Comment Spec In Lab Rick Mehta APRN CHEMISTRY ORDERABLES Performing Organization Address City/State/[place] [address] EKG 12 Lead (02/16/2019 5:09 PM EDT) Component Value Ref Range Test Analysis Performed Pathologis t Method Time At Signature Ventricular rate 62 BPM MUSE SYSTEM Atrial Rate 62 BPM MUSE SYSTEM P-R Interval 166 ms MUSE SYSTEM QRS Duration 84 ms MUSE SYSTEM Q-T Interval 400 ms MUSE SYSTEM QTC Calculated 406 ms MUSE SYSTEM (Bezet) Calculated P Monroe 46 degrees MUSE SYSTEM Calculated R Monroe 51 degrees MUSE SYSTEM Calculated T Monroe 62 degrees MUSE SYSTEM INTERPRETATION Normal sinus rhythm MUSE SYSTEM Normal ECG When compared with ECG of 16-FEB-2019 06:40, No significant change was found Confirmed by MD Valdez, Iam ([id number]) on 02/17/2019 8:17:10 AM Specimen Anatomical Collection Method Collection Time Receive d Time (Source) Location / / Volume Laterality 02/16/2019 5:09 PM 9 8:17 EDT AM EDT John Hua MD ECG ORDERABLES Performing Organization Address City/State/ZIP Code Phon e Number MUSE SYSTEM CARDIAC CATHETERIZATION (02/16/2019 4:48 PM EDT) Anatomical Region Laterality Modality Other Specimen (Source) Anatomical Location Collection Method / Collectio n Time Received Time / Laterality Volume Narrative 02/17/2019 7:44 AM EDT ?[facility] ? Cardiac Cathete rization/Intervention Report ? Patient Name: Hemond, Albina R. ? Procedure Date: 02/16/2019 ? A #: [id number] ? Primary Physician: Coylewright, Mere J ? Case #: [id number] ? File Name: [id number] ? Catheterization Order Number: [id number] ? [facility] ? Final Report [place], [place] ? Patient Name: ? Albina R. Hemo nd ? ID#: ?[id number] ? : ?1945 ? Procedure Date: ? February 16, 2019 ?Case #: ? [id number] ? Room: ? 6 ? Case Physician: ? Mere J Coylewr ight, M.D. ?Start: ?15:29 ?Fellow: ? Harley Borrero M.Jacqui. ?Admission: ??02/13/2019 ? Discharge: ??02/17/2019 ? Referring Physician: ??Quin Rojas M.D. ? Procedures: ?* Coronary Angiography ?* Coronary Angioplasty ?* Coronary Stent Insertion ? History ?Albina Thompson is a 73 year o ld woman. She has hypertension. The ?patient's smoking status is Nev er. She has hypercholesterolemia managed ?with lipid therapy. The patient has a prior history of coronary artery ?disease. She had a coronary int ervention procedure. Prior to the ?initiation of this procedure, t he patient was designated as ASA Class ?III. The [facility] clinical frailty scale is 4: Vulnerable. ? Diagnostic Tests: ?Prior Coronary Angiography: ? Prior coronary angiograp hy was performed on 02/15/2019 and showed ? results unknown. LV ejec tion fraction within 6 months is 61%. ?Electrocardiography: ? EKG was assessed by ECG. EKG was Abnormal. EKG showed ST Deviation ? >= 0.5 mm. ?Medications Prior to Procedure: ? ASA, Beta Renan and St atin. ? Indications for Diagnostic Cath: ?The priority of the diagnostic procedure was Urgent. The indication for ?the cardiac catheterization technician visit is new onset angina less than or equal to 2 months. ?Chest pain symptom assessment w as: Typical Angina. ? Technique: ?A 6 SLFr sheath was inserted in the right radial artery utilizing the ?Seldinger technique. The left c oronary artery was injected utilizing a ?6Fr EBU 3.5 catheter. Coronary angioplasty and coronary stent insertion ?were performed and the equipmen t utilized will be described in the ?intervention summary section. 5 ,000 units of heparin were administered. A ?total of 200cc of Omnipaque wer e opened, 160cc of Omnipaque were ?administered and 40cc of Omnipa que were wasted. Radiation: Fluoro time ?was 15.5 minutes, dose area pro duct was 33,900 mGYcm2 and air kerma was ?655 mGY. See the case log for a dditional details. ?The patient received the follow ing medications prior to and during the ?procedure: ? Unfractionated Heparin a nd Ticagrelor. ? Hemodynamics: ?Left Heart Pressures ? Resting: ? Syst D iast ? EDP ?a ?v ? m ?Ao 125 ?? 52 ?82 ? Coronary Angiography: ?Dominance: Right ?Left Main ? The left main was normal , free of disease. ? Very short, mild diffuse disease. ?Left Anterior Descending ? There was a 70% single d iscrete stenosis of the proximal segment of ? the left anterior descen ding artery (LAD). ??The LAD was large. ??The ? mid segment of the LAD h ad a single discrete 60% stenosis. ? There was a 50% single d iscrete stenosis of the ostial segment of ? the first diagonal branc h (Diagonal 1) of the LAD. ??The Diagonal 1 ? was small. ? There was a 70% single d iscrete stenosis of the ostial segment of ? the second diagonal bran ch (Diagonal 2) of the LAD. ??The Diagonal 2 ? was large. ?Left Circumflex ? There was an 85% single discrete stenosis of the mid segment of the ? left circumflex artery ( LCX). ??The LCX was large. ? There was an 80% single discrete stenosis of the proximal segment of ? the first obtuse margina l branch (OM1) of the LCX. ??The OM1 was ? moderate in size. ? There was a 20% single d iscrete stenosis of the proximal segment of ? the second obtuse margin al branch (OM2) of the LCX. ??The OM2 was ? large. ?Right Coronary Artery ? This vessel was not inje cted. ? Indication for Intervention: ?Coronary intervention was indic ated for treatment of high risk unstable ?angina. The priority for the pr ocedure was Urgent. The NCDR indication ?for the procedure was New Onset Angina <=2 months. LVEF within one week ?was 72%. Syntax Score was Low. ? Intervention Summary: ?Left Anterior Descending Artery ? Proximal 70% ? Stent insertion was performed on the 70% stenosis in the ? proximal segmen t of the LAD. This was a de judah lesion. ? According to th e ACC/AHA classification system, this lesion ? was a type B1 m oderate risk lesion. Primary prevention of ? restenosis was the indication for stent insertion. This was ? the culprit les ion. A guidewire was placed across this lesion. ? Vessel flow pre intervention was JACOB 3. Lesion length was ? 6mm. ? Stent insertion was accomplished through a 6 Fr. EBU 3.5 ? guide. ??The le july was predilated with a 2.50mm EUPHORA 12 MM ? balloon with a maximum inflation pressure of 12 atmospheres. ? A premounted 3. 00 x 15 mm Resolute STEVE (HERMES) was deployed ? with a maximum inflation pressure of 15 atmospheres. ? The final outco me was defined as successful. There was no ? residual stenos is following this intervention. The final JACOB ? flow was 3. ? Mid 60% ? Stent insertion was performed on the 60% stenosis in the mid ? segment of the LAD. This was a de judah lesion. This lesion was ? designated a ty pe B1 moderate risk lesion based on ACC/AHA ? classification system. Primary prevention of restenosis was ? the indication for stent insertion. This was the culprit ? lesion. A guide wire was placed across this lesion. Vessel flow ? pre interventio n was JACOB 3. Lesion length was 8mm. ? Stent insertion was accomplished through a 6 Fr. EBU 3.5 ? guide. ??A tommy ounted 2.75 x 12 mm Resolute STEVE (HERMES) was ? deployed with a maximum inflation pressure of 16 atmospheres. ? The final outco me was defined as successful. There was no ? residual stenos is following this intervention. The final JACOB ? flow was 3. ?Second Diagonal Branch of the L AD ? Ostial 70% ? Angioplasty was performed on the 70% stenosis in the ostial ? segment of the Diagonal 2. This was a drug eluting in- stent ? restenosis lesi on. According to the ACC/AHA classification ? system, this le july was a type B2 moderate risk lesion. This ? was the culprit lesion. A guidewire was placed across this ? lesion. Vessel flow pre intervention was JACOB 3. Lesion length ? was 6mm. This w as a previously treated lesion on 05/12/2004. ? Angioplasty was accomplished through a 6 Fr EBU 3.5 guide ? utilizing a bal loon with a maximum size of 2.50mm and a ? maximum inflati on pressure of 18 atmospheres. ? The final outco me was defined as successful. The residual ? stenosis follow ing this intervention was 45%. The final JACOB ? flow was 3. ?Left Circumflex Artery ? Mid 85% ? Stent insertion was performed on the 85% stenosis in the mid ? segment of the LCX. This was a de judah lesion. This lesion was ? designated a ty pe B2 moderate risk lesion based on ACC/AHA ? classification system. Primary prevention of restenosis was ? the indication for stent insertion. This was the culprit ? lesion. A guide wire was placed across this lesion. Vessel flow ? pre interventio n was JACOB 3. Lesion length was 20mm. ? Stent insertion was accomplished through a 6 Fr. EBU 3.5 ? guide. ??A tommy ounted 2.75 x 24 mm Promus ELITE US MR (HERMES) was ? deployed with a maximum inflation pressure of 18 atmospheres. ? The final outco me was defined as successful. There was no ? residual stenos is following this intervention. The final JACOB ? flow was 3. ?First Obtuse Marginal Branch of the LCX ? Proximal 80% ? Stent insertion was performed on the 80% stenosis in the ? proximal segmen t of the OM1. This was a de judah lesion. ? According to th e ACC/AHA classification system, this lesion ? was a type B1 m oderate risk lesion. Primary prevention of ? restenosis was the indication for stent insertion. This was ? the culprit les ion. A guidewire was placed across this lesion. ? Vessel flow pre intervention was JACOB 3. Lesion length was ? 8mm. ? Stent insertion was accomplished through a 6 Fr. EBU 3.5 ? guide. ??The le july was predilated with a 2.50mm NC EUPHORA 12 ? MM balloon with a maximum inflation pressure of 12 ? atmospheres. ?? A premounted 2.50 x 16 mm Promus ELITE US MR ? (HERMES) was deplo yed with a maximum inflation pressure of 14 ? atmospheres. ? The final outco me was defined as successful. There was no ? residual stenos is following this intervention. The final JACOB ? flow was 3. ? Vascular Access: ?Vascular Access Management: ? Mechanical Compression o f the right radial artery access site was ? performed. ? Dual Antiplatelet (DAPT) Recommendations : ?Drug eluting stent (HERMES) insert ed. ?P2Y12 Loading dose administered prior to arrival in the cardiac catheterization technician. ?Recommend continuing ticagrelor 90 mg PO twice daily for 12 months. ?Recommend continuing aspirin 81 mg unless intolerant. ? Conclusions: ?* Obstructive disease of the LA D and LCX ?* Successful stent insertion of the proximal LAD lesion ?* Successful stent insertion of the mid LAD lesion ?* Successful stent insertion of the proximal OM1 lesion ?* Successful angioplasty of the ostial D2 lesion ?* Successful stent insertion of the mid LCX lesion ?* Recommend continuing ticagrel or 90 mg PO twice daily for 12 months (see ?DAPT Recommendations above for more information.) ? Complications/Events: ?The patient had no complication s during these procedures. ? Recommendations: ?Based upon the results of this procedure, it was recommended that medical ?therapy be considered. ?The attending physician was khai t for the entire procedure. ?Dr. Mere Abbasi M.D. was present during the moderate sedation ?intraservice time as documented by the sedation nurse. ??Case time = 01:09. ?Dr. Mere Abbasi M.D. perf ormed the stent insertion-coronary, ?coronary angiography and angioplas ty-coronary. ? Mere Abbsai, ? M.D. ? Electronically Signed by: Mere cortez, M.D. ? Report Finalized: 02/17/2019 ??13:52 ? Report Last Ammended: 05/27/2019 ??13:30 ? Procedure Note Mere Abbasi, - 05/27/2019For matting of this note might be different from the original. [facility] Cardiac Catheterization/Intervention Re port Patient Name: Albina Thompson Procedure Date: 02/16/2019 A #: [id number] Primary Physician: Mere Abbasi Case #: [id number] File Name: [id number] Catheterization Order Number: [id number] [facility] Manager Of Case Management [facility] Final Report [place], [place] Patient Name: Albina Thompson ID#: [id number] : 1945 Procedure Date: February 16, 2019 Case #: [id number] Room: 6 Case Physician: Jeanna Nicole Start: 15:29 Fellow: Harley Borrero M.D. Admission: Discharge: 02/17/2019 Referring Physician: Quin Rojas M.D. Procedures: * Coronary Angiography * Coronary Angioplasty * Coronary Stent Insertion History Albina Thompson is a 73 year old woman . She has hypertension. The patient's smoking status is Never. She has hypercholesterolemia managed with lipid therapy. The patient has a p rior history of coronary artery disease. She had a coronary interventio n procedure. Prior to the initiation of this procedure, the patie nt was designated as ASA Class III. The HA clinical frailty scale is 4: Vulnerable. Diagnostic Tests: Prior Coronary Angiography: Prior coronary angiography was performe d on 02/15/2019 and showed results unknown. LV ejection fraction w ithin 6 months is 61%. Electrocardiography: EKG was assessed by ECG. EKG was Abnorm al. EKG showed ST Deviation >= 0.5 mm. Medications Prior to Procedure: ASA, Beta Renan and Statin. Indications for Diagnostic Cath: The priority of the diagnostic procedur e was Urgent. The indication for the cardiac catheterization technician visit is new onset angina less than or equal to 2 months. Chest pain symptom assessment was: Typi evon Angina. Technique: A 6 SLFr sheath was inserted in the rig ht radial artery utilizing the Seldinger technique. The left coronary artery was injected utilizing a 6Fr EBU 3.5 catheter. Coronary angiopla sty and coronary stent insertion were performed and the equipment utiliz ed will be described in the intervention summary section. 5,000 uni ts of heparin were administered. A total of 200cc of Omnipaque were opened , 160cc of Omnipaque were administered and 40cc of Omnipaque were wasted. Radiation: Fluoro time was 15.5 minutes, dose area product was 33,900 mGYcm2 and air kerma was 655 mGY. See the case log for additiona l details. The patient received the following medi cations prior to and during the procedure: Unfractionated Heparin and Ticagrelor. Hemodynamics: Left Heart Pressures Resting: Syst Diast EDP a v m Ao 125 52 82 Coronary Angiography: Dominance: Right Left Main The left main was normal, free of disea se. Very short, mild diffuse disease. Left Anterior Descending There was a 70% single discrete stenosi s of the proximal segment of the left anterior descending artery (LA D). The LAD was large. The mid segment of the LAD had a single dis crete 60% stenosis. There was a 50% single discrete stenosi s of the ostial segment of the first diagonal branch (Diagonal 1) of the LAD. The Diagonal 1 was small. There was a 70% single discrete stenosi s of the ostial segment of the second diagonal branch (Diagonal 2) of the LAD. The Diagonal 2 was large. Left Circumflex There was an 85% single discrete stenos is of the mid segment of the left circumflex artery (LCX). The LCX w as large. There was an 80% single discrete stenos is of the proximal segment of the first obtuse marginal branch (OM1) of the LCX. The OM1 was moderate in size. There was a 20% single discrete stenosi s of the proximal segment of the second obtuse marginal branch (OM2) of the LCX. The OM2 was large. Right Coronary Artery This vessel was not injected. Indication for Intervention: Coronary intervention was indicated for treatment of high risk unstable angina. The priority for the procedure was Urgent. The NCDR indication for the procedure was New Onset Angina <=2 months. LVEF within one week was 72%. Syntax Score was Low. Intervention Summary: Left Anterior Descending Artery Proximal 70% Stent insertion was performed on the 70 % stenosis in the proximal segment of the LAD. This was a de judah lesion. According to the ACC/AHA classification system, this lesion was a type B1 moderate risk lesion. Marycarmen nilda prevention of restenosis was the indication for stent insertion. This was the culprit lesion. A guidewire was chriss bailee across this lesion. Vessel flow pre intervention was JACOB 3 . Lesion length was 6mm. Stent insertion was accomplished throug h a 6 Fr. EBU 3.5 guide. The lesion was predilated with a 2.50mm EUPHORA 12 MM balloon with a maximum inflation pressu re of 12 atmospheres. A premounted 3.00 x 15 mm Resolute STEVE (HERMES) was deployed with a maximum inflation pressure of 15 atmospheres. The final outcome was defined as succes sful. There was no residual stenosis following this interv ention. The final JACOB flow was 3. Mid 60% Stent insertion was performed on the 60 % stenosis in the mid segment of the LAD. This was a de judah lesion. This lesion was designated a type B1 moderate risk lesi on based on ACC/AHA classification system. Primary preventi on of restenosis was the indication for stent insertion. Thi s was the culprit lesion. A guidewire was placed across t his lesion. Vessel flow pre intervention was JACOB 3. Lesion ana rosa gth was 8mm. Stent insertion was accomplished throug h a 6 Fr. EBU 3.5 guide. A premounted 2.75 x 12 mm Resolu te STEVE (HERMES) was deployed with a maximum inflation press ure of 16 atmospheres. The final outcome was defined as succes sful. There was no residual stenosis following this interv ention. The final JACOB flow was 3. Second Diagonal Branch of the LAD Ostial 70% Angioplasty was performed on the 70% st enosis in the ostial segment of the Diagonal 2. This was a d rug eluting in-stent restenosis lesion. According to the ACC /AHA classification system, this lesion was a type B2 moder ate risk lesion. This was the culprit lesion. A guidewire was placed across this lesion. Vessel flow pre intervention wa s JACOB 3. Lesion length was 6mm. This was a previously treated lesion on 05/12/2004. Angioplasty was accomplished through a 6 Fr EBU 3.5 guide utilizing a balloon with a maximum size of 2.50mm and a maximum inflation pressure of 18 atmosp heres. The final outcome was defined as succes sful. The residual stenosis following this intervention wa s 45%. The final JACOB flow was 3. Left Circumflex Artery Mid 85% Stent insertion was performed on the 85 % stenosis in the mid segment of the LCX. This was a de judah lesion. This lesion was designated a type B2 moderate risk lesi on based on ACC/AHA classification system. Primary preventi on of restenosis was the indication for stent insertion. Thi s was the culprit lesion. A guidewire was placed across t his lesion. Vessel flow pre intervention was JACOB 3. Lesion ana rosa gth was 20mm. Stent insertion was accomplished throug h a 6 Fr. EBU 3.5 guide. A premounted 2.75 x 24 mm Promus ELITE US MR (HERMES) was deployed with a maximum inflation press ure of 18 atmospheres. The final outcome was defined as succes sful. There was no residual stenosis following this interv ention. The final JACOB flow was 3. First Obtuse Marginal Branch of the LCX Proximal 80% Stent insertion was performed on the 80 % stenosis in the proximal segment of the OM1. This was a de judah lesion. According to the ACC/AHA classification system, this lesion was a type B1 moderate risk lesion. [facility] nilda prevention of restenosis was the indication for stent insertion. This was the culprit lesion. A guidewire was chriss bailee across this lesion. Vessel flow pre intervention was JACOB 3 . Lesion length was 8mm. Stent insertion was accomplished throug h a 6 Fr. EBU 3.5 guide. The lesion was predilated with a 2.50mm NC EUPHORA 12 MM balloon with a maximum inflation pre ssure of 12 atmospheres. A premounted 2.50 x 16 mm Promus ELITE US MR (HERMES) was deployed with a maximum infla tion pressure of 14 atmospheres. The final outcome was defined as succes sful. There was no residual stenosis following this interv ention. The final JACOB flow was 3. Vascular Access: Vascular Access Management: Mechanical Compression of the right rad ial artery access site was performed. Dual Antiplatelet (DAPT) Recommendations : Drug eluting stent (HERMES) inserted. P2Y12 Loading dose administered prior t o arrival in the cardiac catheterization technician. Recommend continuing ticagrelor 90 mg P O twice daily for 12 months. Recommend continuing aspirin 81 mg unle ss intolerant. Conclusions: * Obstructive disease of the LAD and LC X * Successful stent insertion of the pro ximal LAD lesion * Successful stent insertion of the mid LAD lesion * Successful stent insertion of the pro ximal OM1 lesion * Successful angioplasty of the ostial D2 lesion * Successful stent insertion of the mid LCX lesion * Recommend continuing ticagrelor 90 mg PO twice daily for 12 months (see DAPT Recommendations above for more inf ormation.) Complications/Events: The patient had no complications during these procedures. Recommendations: Based upon the results of this procedur e, it was recommended that medical therapy be considered. The attending physician was present for the entire procedure. Dr. Mere Abbasi M.D. was prese nt during the moderate sedation intraservice time as documented by the sedation nurse. Case time = 01:09. Dr. Mere Abbasi M.D. performed the stent insertion-coronary, coronary angiography and angioplasty-co ronary. Mere Abbasi M.D. Electronically Signed by: Mere cortez M.D. Report Finalized: 02/17/2019 13:52 Report Last Ammended: 05/27/2019 13:30 Kiley Buchanan APRN CARDIAC CATH ORDERABLES EKG 12 Lead (02/16/2019 6:40 AM EDT) Component Value Ref Range Test Analysis Performed Pathologis t Method Time At Signature Ventricular rate 65 BPM MUSE SYSTEM Atrial Rate 65 BPM MUSE SYSTEM P-R Interval 172 ms MUSE SYSTEM QRS Duration 96 ms MUSE SYSTEM Q-T Interval 384 ms MUSE SYSTEM QTC Calculated 399 ms MUSE SYSTEM (Bezet) Calculated P Monroe 58 degrees MUSE SYSTEM Calculated R Monroe 43 degrees MUSE SYSTEM Calculated T Monroe 52 degrees MUSE SYSTEM INTERPRETATION Normal sinus rhythm MUSE SYSTEM Normal ECG When compared with ECG of 15-FEB-2019 07:01, No significant change was found Confirmed by MD Abbasi Megan ([id number]) on 02/16/2019 7:3 9:42 PM Specimen Anatomical Collection Method Collection Time Receive d Time (Source) Location / / Volume Laterality 02/16/2019 6:40 AM 9 7:39 EDT PM EDT Rick Mehta APRN ECG ORDERABLES Performing Organization Address City/State/ZIP Code Phon e Number MUSE SYSTEM (ABNORMAL) Differential, Automated (02/16/2019 4:10 AM EDT) [facility] gist Method Time Signature Neutrophils % 73.9 % [facility] Neutr Abs (ANC) 7.23 (H) 1.70 - [facility] 6.10 [facility] x10(3)/[facility] LABORATORY Lymphocytes % 17.2 % [facility] Lymphocytes Abs 1.7 0.9 - 3.2 [facility] x10(3)/[facility] LABORATORY Monocytes % 8.0 % [facility] Monocyte Abs 0.8 0.3 - 0.9 [facility] x10(3)/[facility] LABORATORY Eosinophils % 0.4 % [facility] Eosinophils Abs 0.0 0.0 - 0.4 [facility] x10(3)/[facility] LABORATORY Basophils % 0.1 % [facility] Basophils Abs 0.0 0.0 - 0.1 [facility] x10(3)/[facility] LABORATORY Immature Gran % 0.40 % [facility] Comment: Immature granulocytes(IG's)percentage an d absolute count will include metamyelocytes, myelocytes, and promyelo cytes. Blood smears from CBCs yielding IG's will be scanned manually for concor dance. If this scan disagrees with the automated IG or if promyelocytes are not ed, a manual differential will be performed. Edith Gran Abs 0.04 0.00 - 0.04 x10(3)/[facility] Specimen Anatomical Collection Method Collection Time Receive d Time (Source) Location / / Volume Laterality Blood specimen 02/16/2019 4:10 AM 019 4:16 (specimen) EDT AM EDT Resulting Agency Comment Spec In Lab Rick Fletcherzach RELOCATION SERVICES SPECIALIST HEMATOLOGY ORDERABLES Performing Organization Address City/State/ZIP Code Phon e Number [place], [place] [id number] [place] [address] (ABNORMAL) Hemogram (02/16/2019 4:10 AM EDT) Analysis Performed At Patho logist Time Signature WBC 9.8 (H) 4.0 - 9.5 [facility] LABORATORY RBC 3.70 (L) 4.00 - [place] 5.21 [facility] x10(6)/[facility] LABORATORY Hemoglobin 11.2 (L) 11.7 - [facility] 15.[facility] gm/dL [facility] Hematocrit 33.4 (L) 35.7 - [facility] 45.8 % [facility] MCV 90.3 82.6 - [facility] 94.4 [facility] LABORATORY MCH 30.3 27.1 - [place] 32.0 pg [facility] MCHC 33.5 31.7 - [facility] [place] 35.0 gm/dL [facility] Platelets 202 145 - 357 [facility] x10(3)/[facility] LABORATORY RDWSD 45.2 37.0 - [facility] [place] 46.0 [facility] LABORATORY RDWCV 13.7 11.5 - [facility] [place] 14.1 % [facility] MPV 9.6 7.6 - 12.9 [facility] nRBC % Auto 0.0 % [facility] nRBC Abs Auto 0.000 0.000 - [facility] [place] 0.000 [facility] x10(3)/[facility] LABORATORY Specimen Anatomical Collection Method Collection Time Receive d Time (Source) Location / / Volume Laterality Blood specimen 02/16/2019 4:10 AM 019 4:16 (specimen) EDT AM EDT Resulting Agency Comment Spec In Lab Rick Mehta RELOCATION SERVICES SPECIALIST HEMATOLOGY ORDERABLES Performing Organization Address City/State/[place] [address] Magnesium (02/16/2019 4:10 AM EDT) P athologist Signature Magnesium 0.87 0.69 - 1.07 [facility] mmol/L [facility] Specimen Anatomical Collection Method Collection Time Receive d Time (Source) Location / / Volume Laterality Blood specimen 02/16/2019 4:10 AM 019 4:16 (specimen) EDT AM EDT Resulting Agency Comment Spec In Lab Rick Mehta LILIYA CHEMISTRY ORDERABLES Performing Organization Address City/State/[place] [address] (ABNORMAL) BMP w/fasting Glucose (02/16/2019 4:10 AM EDT) athologist Signature Glucose 124 (H) 65 - 99 [facility] Fasting mg/dL [facility] Comment: ?Fasting* Glucose Interpretive C riteria [...] of Diabetes Mellitus, Position Statement from the [place] [employer]. ??Diabete s Care, Volume 33, Supplement 1, May 2009 BUN 23 (H) 8 - 18 mg/dL [facility] Creatinine 0.54 (L) 0.70 - 1.20 mg/dL [facility] Sodium 143 135 - 145 mmol/L [facility] Potassium 3.6 3.5 - 5.0 mmol/L [facility] Comment: Please note: ??Patients with WBC >100,00 0 may have falsely elevated Potassium levels. ??For accurate Potassium quantif ication in these patients send serum separator tube (gold top) for subsequent determinations. ??Contact the Clinical Chemistry Laboratory if there are any qu estions. Chloride 109 (H) 98 - 107 mmol/L [facility] CO2 22 22 - 31 mmol/L [facility] Anion Gap 12 5 - 15 mmol/L [facility] Calcium 8.8 8.5 - 10.5 mg/dL [facility] Estimated GFR 92 >=60 mL/min/1.73 m?? [facility] Comment: The eGFR was calculated using the CKD-EP I equation. As with all creatinine based estimates of kidney function, eGFR values calculated with the CKD-EPI equation are not accurate in patients wi th acute kidney failure, extremes of body mass or the acutely ill. http://[employer]/TapFitnkf eGFR 107 >=60 mL/min/1.73 m?? [facility] Comment: The eGFR was calculated using the CKD-EP I equation. As with all creatinine based estimates of kidney function, eGFR values calculated with the CKD-EPI equation are not accurate in patients wi th acute kidney failure, extremes of body mass or the acutely ill. http://[employer]/DHMCnkf Specimen Anatomical Collection Method Collection Time Receive d Time (Source) Location / / Volume Laterality Blood specimen 02/16/2019 4:10 AM 019 4:16 (specimen) EDT AM EDT Resulting Agency Comment Spec In Lab Rick Mehta APRN CHEMISTRY ORDERABLES Performing Organization Address City/State/[place] [address] CARDIAC CATHETERIZATION (02/15/2019 9:20 AM EDT) Anatomical Region Laterality Modality Other Specimen (Source) Anatomical Location Collection Method / Collectio n Time Received Time / Laterality Volume Narrative 02/18/2019 11:59 AM EDT ?[facility] ? Cardiac Cathete rization/Intervention Report ? Patient Name: Hemond, Albina R. ? Procedure Date: 02/15/2019 ? A #: [id number] ? Primary Physician: Elroy, Mere Carter ? Case #: [id number] ? File Name: [id number] ? Catheterization Order Number: [id number] ? [facility] ? Final Report [place], [place] ? Patient Name: ? Albina R. Hemo nd ? ID#: ?[id number] ? : ?1945 ? Procedure Date: ? February 15, 2019 ?Case #: ? [id number] ? Room: ? 5 ? Case Physician: ? Mere french M.D. ?Start: ?08:19 ?Fellow: ? Diego melendez M.D. ? Admission: ??02/13/2019 ? Discharge: ??02/17/2019 ? Referring Physician: ??Quin Rojas M.D. ? Procedures: ?* Coronary Angiography ?* Left Heart Catheterization ?* Coronary Instantaneous Wave-F ree Ratio (iFR) ? History ?Albina Thompson is a 73 year o ld woman. She has hypertension. The ?patient's smoking status is Nev er. She has hypercholesterolemia managed ?with lipid therapy. The patient has a prior history of coronary artery ?disease. She had a coronary int ervention procedure. Prior to the ?initiation of this procedure, t he patient was designated as ASA Class ?III. The CSHA clinical frailty scale is 4: Vulnerable. ? Diagnostic Tests: ?Prior Coronary Angiography: ? LV ejection fraction wit hin 6 months is 61%. ?Electrocardiography: ? EKG was assessed by ECG. EKG was Abnormal. EKG showed ST Deviation ? >= 0.5 mm. ?Medications Prior to Procedure: ? ASA, Beta Renan and St atin. ? Indications for Diagnostic Cath: ?The priority of the diagnostic procedure was Urgent. The indication for ?the cardiac catheterization technician visit is ACS great er than 24 hrs. Chest pain symptom ?assessment was: Typical Angina. ? Technique: ?A 6 SLFr sheath was inserted in the right radial artery utilizing the ?Seldinger technique. The left c oronary artery was injected utilizing a ?5Fr TIG 4.0 catheter. A 5Fr TIG 4.0 catheter was used to inject the right ?coronary artery. Left ventricul ar pressure was performed with a 5Fr ?PIGTAIL catheter. 6,000 units o f heparin were administered. A total of ?200cc of Omnipaque were opened, 88cc of Omnipaque were administered and ?112cc of Omnipaque were wasted. Radiation: Fluoro time was 8.1 minutes, ?dose area product was 38,438 mG Ycm2 and air kerma was 823 mGY. See the ?case log for additional details . ?The patient received the follow ing medications prior to and during the ?procedure: ? Unfractionated Heparin a nd Ticagrelor. ? Hemodynamics: ?Left Heart Pressures ? Resting: ? Syst D iast ? EDP ?a ?v ? m ?Ao 141 ?? 61 ?91 ?LV 142 ? 8 ?Comments: ??Opening Ao 124/55 ( 86). ? Coronary Angiography: ?Dominance: Co-dominant ?Left Main ? The left main was normal , free of disease. ? Short left main. ?Left Anterior Descending ? There was a 70% single d iscrete stenosis of the proximal segment of ? the left anterior descen ding artery (LAD). ??The LAD was large. ??The ? mid segment of the LAD h ad a single discrete 70% stenosis. ??This ? lesion represented in-st ent restenosis following a prior coronary ? stent insertion. ? There was a 50% single d iscrete stenosis of the ostial segment of ? the first diagonal branc h (Diagonal 1) of the LAD. ??The Diagonal 1 ? was small. ? There was a 70% single d iscrete stenosis of the ostial segment of ? the second diagonal bran ch (Diagonal 2) of the LAD. ??The Diagonal 2 ? was large. ?Left Circumflex ? There were multiple disc rete 85% stenoses of the mid segment of the ? left circumflex artery ( LCX). ??The LCX was large. ? There was an 80% single discrete stenosis of the proximal segment of ? the first obtuse margina l branch (OM1) of the LCX. ??The OM1 was ? small. ? There was a 20% single d iscrete stenosis of the proximal segment of ? the second obtuse margin al branch (OM2) of the LCX. ??The OM2 was ? large. ?Right Coronary Artery ? There was a 30% single d iscrete stenosis of the proximal segment of ? the right coronary arter y (RCA). ??The RCA was large. ? Intravascular Imaging/Physiology: ?Instantaneous wave-free ratio ( iFR) was determined across the 70% ?stenosis in the ostial D2 using a 6 Fr EBU 3.5 guiding catheter and a ?Verrata wire. ??Wire delivery w as successful. ??The IFR across the 70% ?ostial D2 lesion was 0.82. ??Th is lesion was hemodynamically significant. ?Instantaneous wave-free ratio ( iFR) was determined across the 30% ?stenosis in the proximal RCA us ing a 6 Fr JR 4 guiding catheter and a ?Verrata wire. ??Wire delivery w as successful. ??The IFR across the 30% ?proximal RCA lesion was 0.96. ? ?This lesion was not hemodynamically ?significant. ?Instantaneous wave-free ratio ( iFR) was determined across the 70% ?stenosis in the mid LAD using a 6 Fr EBU 3.5 guiding catheter and a ?Verrata wire. ??Wire delivery w as successful. ??The IFR across the 70% mid ?LAD lesion was 0.87. ??This les ion was hemodynamically significant. ?Additional Findings: On pull ba ck, proximal iFR 0.92. ? Vascular Access: ?Vascular Access Management: ? Mechanical Compression o f the right radial artery access site was ? performed. ? Conclusions: ?* Two vessel coronary artery di sease (LAD and LCX) ?* Recommend shared decision emmanuel ing approach for PCI v CABG. We will meet ?with patient and her th is afternoon. ? Complications/Events: ?The patient had no complication s during these procedures. ? Comments: ?Syntax score calculated: 15 ?Syntax II score for PCI: 31.8 ( 7.9% 4 year mortality) ?Syntax II score for CAB.7 (4.8% 4 year mortality). ?The attending physician was khai t for the entire procedure. ?Dr. Mere Abbasi M.D. was present during the moderate sedation ?intraservice time as documented by the sedation nurse. ??Case time = 00:51. ?Dr. Mere Abbasi M.D. perf ormed the coronary angiography, left ?heart catheterization and IFR-arturo nary. ? Mere J Coylewright, ? M.D. ? Electronically Signed by: Mere J Coylew right, M.D. ? Report Finalized: 02/16/2019 ??07:30 ? Report Last Ammended: 05/27/2019 ??13:27 ? Procedure Note Mere Abbasi MD - 05/27/2019For matting of this note might be different from the original. [facility] Cardiac Catheterization/Intervention Re port Patient Name: Albina Thompson Procedure Date: 02/15/2019 A #: [id number] Primary Physician: Mere Abbasi Case #: [id number] File Name: [id number] Catheterization Order Number: [id number] [facility] Manager Of Case Management [facility] Final Report [place], [place] Patient Name: Albina Thompson ID#: [id number] : 1945 Procedure Date: February 15, 2019 Case #: [id number] Room: 5 Case Physician: Jeanna Nicole Start: 08:19 Fellow: Diego Meade M.D. Admissio n: 02/13/2019 Discharge: 02/17/2019 Referring Physician: Quin Rojas M.D. Procedures: * Coronary Angiography * Left Heart Catheterization * Coronary Instantaneous Wave-Free Rati o (iFR) History Albina Thompson is a 73 year old woman . She has hypertension. The patient's smoking status is Never. She has hypercholesterolemia managed with lipid therapy. The patient has a p rior history of coronary artery disease. She had a coronary interventio n procedure. Prior to the initiation of this procedure, the patie nt was designated as ASA Class III. The CSHA clinical frailty scale is 4: Vulnerable. Diagnostic Tests: Prior Coronary Angiography: LV ejection fraction within 6 months is 61%. Electrocardiography: EKG was assessed by ECG. EKG was Abnorm al. EKG showed ST Deviation >= 0.5 mm. Medications Prior to Procedure: ASA, Beta Renan and Statin. Indications for Diagnostic Cath: The priority of the diagnostic procedur e was Urgent. The indication for the cardiac catheterization technician visit is ACS greater than 24 hrs. Chest pain symptom assessment was: Typical Angina. Technique: A 6 SLFr sheath was inserted in the rig ht radial artery utilizing the Seldinger technique. The left coronary artery was injected utilizing a 5Fr TIG 4.0 catheter. A 5Fr TIG 4.0 cat heter was used to inject the right coronary artery. Left ventricular press ure was performed with a 5Fr PIGTAIL catheter. 6,000 units of hepari n were administered. A total of 200cc of Omnipaque were opened, 88cc of Omnipaque were administered and 112cc of Omnipaque were wasted. Radiati on: Fluoro time was 8.1 minutes, dose area product was 38,438 mGYcm2 and air kerma was 823 mGY. See the case log for additional details. The patient received the following medi cations prior to and during the procedure: Unfractionated Heparin and Ticagrelor. Hemodynamics: Left Heart Pressures Resting: Syst Diast EDP a v m Ao 141 61 91 LV 142 8 Comments: Opening Ao 124/55 (86). Coronary Angiography: Dominance: Co-dominant Left Main The left main was normal, free of disea se. Short left main. Left Anterior Descending There was a 70% single discrete stenosi s of the proximal segment of the left anterior descending artery (LA D). The LAD was large. The mid segment of the LAD had a single dis crete 70% stenosis. This lesion represented in-stent restenosis following a prior coronary stent insertion. There was a 50% single discrete stenosi s of the ostial segment of the first diagonal branch (Diagonal 1) of the LAD. The Diagonal 1 was small. There was a 70% single discrete stenosi s of the ostial segment of the second diagonal branch (Diagonal 2) of the LAD. The Diagonal 2 was large. Left Circumflex There were multiple discrete 85% stenos es of the mid segment of the left circumflex artery (LCX). The LCX w as large. There was an 80% single discrete stenos is of the proximal segment of the first obtuse marginal branch (OM1) of the LCX. The OM1 was small. There was a 20% single discrete stenosi s of the proximal segment of the second obtuse marginal branch (OM2) of the LCX. The OM2 was large. Right Coronary Artery There was a 30% single discrete stenosi s of the proximal segment of the right coronary artery (RCA). The RC A was large. Intravascular Imaging/Physiology: Instantaneous wave-free ratio (iFR) was determined across the 70% stenosis in the ostial D2 using a 6 Fr EBU 3.5 guiding catheter and a Verrata wire. Wire delivery was success ful. The IFR across the 70% ostial D2 lesion was 0.82. This lesion was hemodynamically significant. Instantaneous wave-free ratio (iFR) was determined across the 30% stenosis in the proximal RCA using a 6 Fr JR 4 guiding catheter and a Verrata wire. Wire delivery was success ful. The IFR across the 30% proximal RCA lesion was 0.96. This lesi on was not hemodynamically significant. Instantaneous wave-free ratio (iFR) was determined across the 70% stenosis in the mid LAD using a 6 Fr EB U 3.5 guiding catheter and a Verrata wire. Wire delivery was success ful. The IFR across the 70% mid LAD lesion was 0.87. This lesion was he modynamically significant. Additional Findings: On pull back, prox imal iFR 0.92. Vascular Access: Vascular Access Management: Mechanical Compression of the right rad ial artery access site was performed. 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 We will meet with patient and her this after noon. Complications/Events: The patient had no complications during these procedures. Comments: Syntax score calculated: 15 Syntax II score for PCI: 31.8 (7.9% 4 y ear mortality) Syntax II score for CAB.7 (4.8% 4 year mortality). The attending physician was present for the entire procedure. Dr. Mere Abbasi M.D. was prese nt during the moderate sedation intraservice time as documented by the sedation nurse. Case time = 00:51. Dr. Mere Abbasi M.D. performed the coronary angiography, left heart catheterization and IFR-coronary. Mere Abbasi M.D. Electronically Signed by: Mere cortez M.D. Report Finalized: 02/16/2019 07:30 Report Last Ammended: 05/27/2019 13:27 Mere Abbasi MD CARDIAC CATH ORDERABLES EKG 12 Lead (02/15/2019 7:01 AM EDT) Component Value Ref Range Test Analysis Performed Pathologis t Method Time At Signature Ventricular rate 66 BPM MUSE SYSTEM Atrial Rate 66 BPM MUSE SYSTEM P-R Interval 166 ms MUSE SYSTEM QRS Duration 98 ms MUSE SYSTEM Q-T Interval 398 ms MUSE SYSTEM QTC Calculated 417 ms MUSE SYSTEM (Bezet) Calculated P Monroe 41 degrees MUSE SYSTEM Calculated R Monroe 32 degrees MUSE SYSTEM Calculated T Monroe 60 degrees MUSE SYSTEM INTERPRETATION Normal sinus rhythm MUSE SYSTEM Normal ECG When compared with ECG of 14-FEB-2019 06:29, No significant change was found Confirmed by MD Elroy, Mere ([id number]) on 02/15/2019 8:0 4:20 PM Specimen Anatomical Collection Method Collection Time Receive d Time (Source) Location / / Volume Laterality 02/15/2019 7:01 AM 9 8:04 EDT PM EDT Rick Mehta APRN ECG ORDERABLES Performing Organization Address City/State/ZIP Code Phon e Number MUSE SYSTEM (ABNORMAL) Differential, Automated (02/15/2019 4:45 AM EDT) Patholo gist Method Time Signature Neutrophils % 93.4 % [facility] Neutr Abs (ANC) 12.91 (H) 1.70 - [facility] 6.10 [facility] x10(3)/[facility] L LABORATORY Lymphocytes % 4.5 % [facility] Lymphocytes Abs 0.6 (L) 0.9 - 3.2 [facility] x10(3)/[facility] LABORATORY Monocytes % 1.7 % [facility] Monocyte Abs 0.2 (L) 0.3 - 0.9 [facility] x10(3)/[facility] LABORATORY Eosinophils % 0.0 % [facility] Eosinophils Abs 0.0 0.0 - 0.4 [facility] x10(3)/[facility] LABORATORY Basophils % 0.1 % [facility] Basophils Abs 0.0 0.0 - 0.1 [facility] x10(3)/[facility] LABORATORY Immature Gran % 0.30 % [facility] Comment: Immature granulocytes(IG's)percentage an d absolute count will include metamyelocytes, myelocytes, and promyelo cytes. Blood smears from CBCs yielding IG's will be scanned manually for concor dance. If this scan disagrees with the automated IG or if promyelocytes are not ed, a manual differential will be performed. Edith Gran Abs 0.04 0.00 - 0.04 x10(3)/[facility] Specimen Anatomical Collection Method Collection Time Receive d Time (Source) Location / / Volume Laterality Blood specimen 02/15/2019 4:45 AM 019 4:56 (specimen) EDT AM EDT Resulting Agency Comment Spec In Lab Rick Mehta APRN HEMATOLOGY ORDERABLES Performing Organization Address City/State/[place] [address] (ABNORMAL) Hemogram (02/15/2019 4:45 AM EDT) Analysis Performed At Patho logist Time Signature WBC 13.8 (H) 4.0 - 9.5 [facility] x10(3)/[facility] LABORATORY RBC 3.80 (L) 4.00 - [facility] 5.21 [facility] x10(6)/[facility] LABORATORY Hemoglobin 11.7 11.7 - [facility] 15.5 gm/dL [facility] Hematocrit 33.5 (L) 35.7 - [facility] 45.8 % [facility] MCV 88.2 82.6 - [facility] 94.4 fL [facility] MCH 30.8 27.1 - [facility] 32.0 pg [facility] MCHC 34.9 31.7 - [facility] 35.0 gm/dL [facility] Platelets 230 145 - 357 [facility] x10(3)/[facility] LABORATORY RDWSD 43.6 37.0 - NILDA FERRO 46.0 [facility] RDWCV 13.4 11.5 - N[place]DA FERRO 14.1 % [facility] MPV 9.8 7.6 - 12.9 NILDA FERRO [facility] LABORATORY nRBC % Auto 0.0 % [facility] nRBC Abs Auto 0.000 0.000 - [place] 0.000 [facility] x10(3)/[facility] LABORATORY Specimen Anatomical Collection Method Collection Time Receive d Time (Source) Location / / Volume Laterality Blood specimen 02/15/2019 4:45 AM 019 4:56 (specimen) EDT AM EDT Resulting Agency Comment Spec In Lab Rick Mehta APRN HEMATOLOGY ORDERABLES Performing Organization Address City/State/ZIP Code Phon e Number [place] [id number] Heparin (unfractionated) Level (02/15/2019 4:45 AM EDT) athologist Signature Heparin UFH 0.46 IU/mL [facility] LAB[facility] Comment: Guidelines for therapeutic unfractionate d heparin levels are summarized below. Heparin (Anti-Xa) levels should be deter mined in a plasma sample that has been drawn 6 hours after a dose change i.e., steady-state has been reached. DRUG ?Dos ing Schedule ? Target Peak Steady-State ?Heparin (Anti-Xa) Levels (Units/mL) Unfractionated ?Continuous inf usion ?0.3-0.7 Heparin ?0.3-0.6 fo r some neurology indications Specimen Anatomical Collection Method Collection Time Receive d Time (Source) Location / / Volume Laterality Blood specimen 02/15/2019 4:45 AM 019 4:56 (specimen) EDT AM EDT Resulting Agency Comment Spec In Lab Rick Mehta APRN HEMATOLOGY ORDERABLES Performing Organization Address City/[facility]/ZIP Code Phon e Number [address] Magnesium (02/15/2019 4:45 AM EDT) P athologist Signature Magnesium 0.86 0.69 - 1.07 [facility] mmol/L [facility] Specimen Anatomical Collection Method Collection Time Receive d Time (Source) Location / / Volume Laterality Blood specimen 02/15/2019 4:45 AM 019 4:56 (specimen) EDT AM EDT Resulting Agency Comment Spec In Lab Rick Mehta APRN CHEMISTRY ORDERABLES Performing Organization Address City/[facility]/ZIP [place] [address] (ABNORMAL) BMP w/fasting Glucose (02/15/2019 4:45 AM EDT) P athologist Signature Glucose 164 (H) 65 - 99 [facility] Fasting mg/dL [facility] Comment: ?Fasting* Glucose Interpretive C riteria [...] of Diabetes Mellitus, Position Statement from the [place] [employer]. ??Diabete s Care, Volume 33, Supplement 1, May 2009 BUN 19 (H) 8 - 18 mg/dL [facility] Creatinine 0.59 (L) 0.70 - 1.20 mg/dL [facility] Sodium 142 135 - 145 mmol/L [facility] Potassium 3.9 3.5 - 5.0 mmol/L [facility] Comment: Please note: ??Patients with WBC >100,00 0 may have falsely elevated Potassium levels. ??For accurate Potassium quantif ication in these patients send serum separator tube (gold top) for subsequent determinations. ??Contact the Clinical Chemistry Laboratory if there are any qu estions. Chloride 108 (H) 98 - 107 mmol/L [facility] CO2 21 (L) 22 - 31 mmol/L [facility] Anion Gap 13 5 - 15 mmol/L [facility] Calcium 9.6 8.5 - 10.5 mg/dL [facility] Estimated GFR 90 >=60 mL/min/1.73 m?? [facility] Comment: The eGFR was calculated using the CKD-EP I equation. As with all creatinine based estimates of kidney function, eGFR values calculated with the CKD-EPI equation are not accurate in patients wi th acute kidney failure, extremes of body mass or the acutely ill. [email or web address]AMInkf eGFR 104 >=60 mL/min/1.73 m?? [facility] Comment: The eGFR was calculated using the CKD-EP I equation. As with all creatinine based estimates of kidney function, eGFR values calculated with the CKD-EPI equation are not accurate in patients wi th acute kidney failure, extremes of body mass or the acutely ill. [email or web address] Specimen Anatomical Collection Method Collection Time Receive d Time (Source) Location / / Volume Laterality Blood specimen 02/15/2019 4:45 AM 019 4:56 (specimen) EDT AM EDT Resulting Agency Comment Spec In Lab Rick Mehta APRN CHEMISTRY ORDERABLES Performing Organization Address City/State/[place] [address] Heparin (unfractionated) Level (02/14/2019 7:49 PM EDT) P athologist Signature Heparin UFH 0.61 IU/mL [facility] LAB[facility]ORY Comment: Guidelines for therapeutic unfractionate d heparin levels are summarized below. Heparin (Anti-Xa) levels should be deter mined in a plasma sample that has been drawn 6 hours after a dose change i.e., steady-state has been reached. DRUG ?Dos ing Schedule ? Target Peak Steady-State ?Heparin (Anti-Xa) Levels (Units/mL) Unfractionated ?Continuous inf usion ?0.3-0.7 Heparin ?0.3-0.6 fo r some neurology indications Specimen Anatomical Collection Method Collection Time Receive d Time (Source) Location / / Volume Laterality Blood specimen 02/14/2019 7:49 PM 019 8:01 (specimen) EDT PM EDT Resulting Agency Comment Spec In Lab John Hua MD HEMATOLOGY ORDERABLES Performing Organization Address City/State/[place] [address] Heparin (unfractionated) Level (02/14/2019 1:59 PM EDT) athologist Signature Heparin UFH 0.65 IU/mL [facility] LABOR[facility]ORY Comment: Guidelines for therapeutic unfractionate d heparin levels are summarized below. Heparin (Anti-Xa) levels should be deter mined in a plasma sample that has been drawn 6 hours after a dose change i.e., steady-state has been reached. DRUG ?Dos ing Schedule ? Target Peak Steady-State ?Heparin (Anti-Xa) Levels (Units/mL) Unfractionated ?Continuous inf usion ?0.3-0.7 Heparin ?0.3-0.6 fo r some neurology indications Specimen Anatomical Collection Method Collection Time Receive d Time (Source) Location / / Volume Laterality Blood specimen 02/14/2019 1:59 PM 019 2:03 (specimen) EDT PM EDT Resulting Agency Comment Spec In Lab John Hua MD HEMATOLOGY ORDERABLES Performing Organization Address City/State/ZIP [place] [address] ECHOCARDIOGRAM COMPLETE (02/14/2019 9:51 AM EDT) P athologist Signature EF 72 HEARTLAB SYSTEM Anatomical Region Laterality Modality Other Specimen (Source) Anatomical Location Collection Method / Collectio n Time Received Time / Laterality Volume 02/14/2019 Narrative 02/14/2019 11:46 AM EDT Procedure: ?Transthoracic Echocardiogram Patient: ?HEMOND ALBINA R ? (Age): 1945(73y) Med Rec#: ? [id number] ?Sex: ?F ? Site Loc: ? [facility] ?Ht / Wt: ??154(cm)/68(kg) Pt. Loc: ?Adult Floor ? BSA: ?1.66 Study Date: ?? 02/14/2019 ?Pt. Type: Inpatient Tape: ? Referring: HONEY Referring: Rick Mehta Reading: John Hua ([id number]) Waybill Clerk: Suzy Trejo Diagnosis: *Atherosclerotic heart disease of nativ e coronary artery without angina pectoris (I25.10) BP: ? 116/47 SUMMARY: 1. The left ventricular chamber size is normal. Left ventricular wall thickness is normal. There is normal matt bal left ventricular systolic function. The quantitative left ventricu lar ejection fraction by biplane Smith's method is 72%. There are no le ft ventricular segmental wall motion abnormalities. Assessment of ramirez tolic function is indeterminate. 2. The left atrium is mildly dilated. 3. The right ventricle is normal in size . Right ventricular global systolic function is normal. The estimat ed pulmonary artery systolic pressure is 25 mmHg. 4. There is no hemodynamically significa nt valve disease. Findings ? : Left Ventricle: ? The left ventricul ar chamber size is normal. ?Left ventricular wall thickness is normal. ?No ventricular septal defect is vi sualized. ?There is normal global left ventri cular systolic function. ?The quantitative left ventricular ejection fraction by biplane Smith's method is 72%. ?There are no left ventricular segm ental wall motion abnormalities. ?Assessment of diastolic function i s indeterminate. Left Atrium: ? The left atrium is mi ldly dilated. ?There is no evidence of a patent f oramen ovale by color Doppler. Right Ventricle: ? The right ventric le is normal in size. ?Right ventricular global systolic function is normal. ?The estimated pulmonary artery sys tolic pressure is 25 mmHg. ?The estimated right atrial pressur e is 3 mmHg. Right Atrium: ? The right atrium is normal in size. Aortic Valve: ? The aortic valve is tricuspid. ?The aortic valve leaflets are mild ly thickened. ?Systolic excursion of the aortic v alve is normal. ?There is aortic annular calcificat ion. ?There is no evidence of aortic apple ve stenosis. ?There is no evidence of aortic reg urgitation. Mitral Valve: ? The mitral valve richard flets appear normal. ?There is trace mitral regurgitatio n present. Tricuspid Valve: ? The tricuspid apple ve leaflets are morphologically normal. ?There is trace tricuspid regurgita tion present. Pulmonic Valve: ? The pulmonic valve appears normal in structure and function. Pericardium: ? The pericardium appea rs normal and there is no evidence of a pericardial effusion. ?A pericardial fat pad is visualize d. Aorta: ? The aortic root is normal i n size. ?The ascending aorta is normal in s ize. Pulmonary Artery: ? The main pulmona ry artery appears normal. Venous: ? The inferior vena cava obey ears normal in size. ?There is a greater than 50% respir atory change in the inferior vena cava dimension. Misc: ? There is no hemodynamically significant valve disease. ?Two-dimensional echo, spectral Dop pler and color Doppler performed. Chambers 2D ?Value ?Units (Range) ? IVSd (2D) ? 0.9 ?cm ? LVPWd (2D) ?0.8 ?cm ? IVS:LVPW ratio (2D) 1.2 ?ratio ? RWT (2D) ?0.4 ?ratio ? RWT PW (2D) ? 0.3 ?ratio ? LVIDd (2D) ?4.5 ?cm ? LVIDs (2D) ?2.6 ?cm ? LVIDd (2D) index ?2.7 ?cm/m2 ? LVIDs (2D) index ?1.6 ?cm/m2 ? LV FS (2D) ?42 ? % ? EF Teichholz (2D) ?? 73 ? % ? Ao root diameter (2D3 ?cm (2.1 - 3.6) ? Ascending Ao ?3.3 ?cm (2 - 3.5) ? Volumes/Mass ?Value ?Units (Range) ? LA Area 4 CH ?18.5 ? cm2 (<21) ? LA ESV BP (A/L) inde36.8 ? ml/m2 ? RA AREA 4CH ? 13.3 ? cm2 ? LV ESV SP 4CH (MOD) 28.2 ? ml ? LV ESV SP 2CH (MOD) 19.8 ? ml ? LV EDV BP ? 85.6 ? ml ? LV ESV BP ? 24.3 ? ml ? LV EDV BP index ? 51.5 ? ml/m2 ? LV ESV BP index ? 14.6 ? ml/m2 ? BP EF (MOD) ? 72 ? % ? LV mass (2D) ?122 ?g ? LV mass (2D) index ??73.5 ? g/m2 ? Diastolic/Systolic Function ?Value ?Units (Range) ? MV E-wave Vmax ?0.7 ?m/sec ? MV deceleration wafv410.5 ? msec ? MV A-wave Vmax ?0.9 ?m/sec ? MV E:A ratio ?0.8 ?ratio ? LV septal e' Vmax ?? 0.1 ?m/sec ? LV lateral e' Vmax ??0.1 ?m/sec ? LV average e' Vmax ??0.1 ?m/sec ? LV E:e' septal ratio10.3 ? ratio ? LV E:e' lateral rati9 ?ratio ? LV average E:e' rati9 ?ratio ? Tricuspid Valve ?Value ?Units (Range) ? TR Vmax ? 2.4 ?m/sec ? TR peak gradient ?22.5 ? mmHg ? RAP ? 3 ?mmHg ? RVSP ?25 ? mmHg ? Wall Motion: Segment Name ?Rest ? Base-Anteroseptal ?? Normal ? Base-Anterior ? Normal ? Base-Anterolateral ??Normal ? Base-Posterolateral Normal ? Base-Inferior ? Normal ? Base-Inferoseptal ?? Normal ? Mid-Anteroseptal ?Normal ? Mid-Anterior ?Normal ? Mid-Anterolateral ?? Normal ? Mid-Posterolateral ??Normal ? Mid-Inferior ?Normal ? Mid-Inferoseptal ?Normal ? Elton-Septal ? Normal ? Elton-Anterior ? Normal ? Elton-Lateral ?Normal ? Elton-Inferior ? Normal ? Elton-Tip ?Normal ? This report has been electronically sign ed by: _ John Hua MD ? 02/14/2019 11:45 :39 Images reviewed and interpretation vipin cerna [facility] Cardiac Ultrasound Laboratory Procedure Note John Hua MD - 02/14/2019Formattin g of this note might be different from the original. Procedure: Transthoracic Echocardiogram Patient: OLIVA ESCAMILLA(Age): [birth year](73y) Med Rec#: [id number] Sex: F Site Loc: [facility] Ht / Wt: 154(cm)/68(kg) Pt. Loc: Adult Floor BSA: 1.66 Study Date: 02/14/2019 Pt. Type: Inpatie nt Tape: Referring: HONEY Referring: Rick Mehta Reading: John Hua ([id number]) Waybill Clerk: Suzy Trejo Diagnosis: *Atherosclerotic heart disease of nativ e coronary artery without angina pectoris (I25.10) BP: 116/47 SUMMARY: 1. The left ventricular chamber size is normal. Left ventricular wall thickness is normal. There is normal matt bal left ventricular systolic function. The quantitative left ventricu lar ejection fraction by biplane Smith's method is 72%. There are no le ft ventricular segmental wall motion abnormalities. Assessment of ramirez tolic function is indeterminate. 2. The left atrium is mildly dilated. 3. The right ventricle is normal in size . Right ventricular global systolic function is normal. The estimat ed pulmonary artery systolic pressure is 25 mmHg. 4. There is no hemodynamically significa nt valve disease. Findings : Left Ventricle: The left ventricular micaela mber size is normal. Left ventricular wall thickness is norm al. No ventricular septal defect is visuali zed. There is normal global left ventricular systolic function. The quantitative left ventricular eject ion fraction by biplane Smith's method is 72%. There are no left ventricular segmental wall motion abnormalities. Assessment of diastolic function is ind eterminate. Left Atrium: The left atrium is mildly d ilated. There is no evidence of a patent forame n ovale by color Doppler. Right Ventricle: The right ventricle is normal in size. Right ventricular global systolic funct ion is normal. The estimated pulmonary artery systolic pressure is 25 mmHg. The estimated right atrial pressure is 3 mmHg. Right Atrium: The right atrium is normal in size. Aortic Valve: The aortic valve is tricus pid. The aortic valve leaflets are mildly th ickened. Systolic excursion of the aortic valve is normal. There is aortic annular calcification. There is no evidence of aortic valve st enosis. There is no evidence of aortic regurgit ation. Mitral Valve: The mitral valve leaflets appear normal. There is trace mitral regurgitation pre sent. Tricuspid Valve: The tricuspid valve richard flets are morphologically normal. There is trace tricuspid regurgitation present. Pulmonic Valve: The pulmonic valve appea rs normal in structure and function. Pericardium: The pericardium appears nor mal and there is no evidence of a pericardial effusion. A pericardial fat pad is visualized. Aorta: The aortic root is normal in size . The ascending aorta is normal in size. Pulmonary Artery: The main pulmonary art randa appears normal. Venous: The inferior vena cava appears n ormal in size. There is a greater than 50% respiratory change in the inferior vena cava dimension. Misc: There is no hemodynamically signif icant valve disease. Two-dimensional echo, spectral Doppler and color Doppler performed. Chambers 2D Value Units (Range) IVSd (2D) 0.9 cm LVPWd (2D) 0.8 cm IVS:LVPW ratio (2D) 1.2 ratio RWT (2D) 0.4 ratio RWT PW (2D) 0.3 ratio LVIDd (2D) 4.5 cm LVIDs (2D) 2.6 cm LVIDd (2D) index 2.7 cm/m2 LVIDs (2D) index 1.6 cm/m2 LV FS (2D) 42 % EF Teichholz (2D) 73 % Ao root diameter (2D3 cm (2.1 - 3.6) Ascending Ao 3.3 cm (2 - 3.5) Volumes/Mass Value Units (Range) LA Area 4 CH 18.5 cm2 (<21) LA ESV BP (A/L) inde36.8 ml/m2 RA AREA 4CH 13.3 cm2 LV ESV SP 4CH (MOD) 28.2 ml LV ESV SP 2CH (MOD) 19.8 ml LV EDV BP 85.6 ml LV ESV BP 24.3 ml LV EDV BP index 51.5 ml/m2 LV ESV BP index 14.6 ml/m2 BP EF (MOD) 72 % LV mass (2D) 122 g LV mass (2D) index 73.5 g/m2 Diastolic/Systolic Function Value Units (Range) MV E-wave Vmax 0.7 m/sec MV deceleration bive270.5 msec MV A-wave Vmax 0.9 m/sec MV E:A ratio 0.8 ratio LV septal e' Vmax 0.1 m/sec LV lateral e' Vmax 0.1 m/sec LV average e' Vmax 0.1 m/sec LV E:e' septal ratio10.3 ratio LV E:e' lateral rati9 ratio LV average E:e' rati9 ratio Tricuspid Valve Value Units (Range) TR Vmax 2.4 m/sec TR peak gradient 22.5 mmHg RAP 3 mmHg RVSP 25 mmHg Wall Motion: Segment Name Rest Base-Anteroseptal Normal Base-Anterior Normal Base-Anterolateral Normal Base-Posterolateral Normal Base-Inferior Normal Base-Inferoseptal Normal Mid-Anteroseptal Normal Mid-Anterior Normal Mid-Anterolateral Normal Mid-Posterolateral Normal Mid-Inferior Normal Mid-Inferoseptal Normal Elton-Septal Normal Elton-Anterior Normal Elton-Lateral Normal Elton-Inferior Normal Elton-Tip Normal This report has been electronically sign ed by: _ John Hua MD 02/14/2019 11:45:39 Images reviewed and interpretation [facility] Cardiac Ultrasound Laboratory Rick Mehta RELOCATION SERVICES SPECIALIST ECHO ORDERABLES Troponin (02/14/2019 6:44 AM EDT) athologist Signature Troponin-T <0.01 0.00 - 0.00 [facility] ng/mL [facility] Comment: The 99th percentile for Troponin T is le ss than 0.01 ng/mL, any detectable cTnT concentration using this assay should be considered elevated. According to the third universal definit ion of myocardial infarction the following criteria with a clinical prese ntation consistent with acute myocardial ischemia meets the diagnosis for a myocardial infarction (MN). Detection of a rise and/or fall of cTnT, with at least one value greater than the 99th percentile (> or = 0.01) and wi th at least one of the following ?? Symptoms of ischemia ?? New or presumed new significant ST-se gment-T wave (ST-T) changes or new left bundle branch block (LBBB) ?? Development of pathologic Q waves in the ECG ?? Imaging evidence of new loss of viabl e myocardium or new regional wall motion abnormality ?? Identification of an intracoronary th rombus by angiography or autopsy Samples for cTnT testing should be obtai montrell serially upon first assessment and again 3 to 6 hours later. If the clinica l suspicion is high and previous samples have been negative an additional sample may be indicated. Reference: Third [place] Definition of Myocardial Infarction. Journal of the [place] College [employer] 2012;60:1581-98 Specimen Anatomical Collection Method Collection Time Receive d Time (Source) Location / / Volume Laterality Blood specimen 02/14/2019 6:44 AM 019 6:51 (specimen) EDT AM EDT Resulting Agency Comment Spec In Lab Logan Hernandes MD CHEMISTRY ORDERABLES Performing Organization Address City/State/[place] [address] Heparin (unfractionated) Level (02/14/2019 6:44 AM EDT) athologist Signature Heparin UFH 0.74 IU/mL [facility] Comment: Guidelines for therapeutic unfractionate d heparin levels are summarized below. Heparin (Anti-Xa) levels should be deter mined in a plasma sample that has been drawn 6 hours after a dose change i.e., steady-state has been reached. DRUG ?Dos ing Schedule ? Target Peak Steady-State ?Heparin (Anti-Xa) Levels (Units/mL) Unfractionated ?Continuous inf usion ?0.3-0.7 Heparin ?0.3-0.6 fo r some neurology indications Specimen Anatomical Collection Method Collection Time Receive d Time (Source) Location / / Volume Laterality Blood specimen 02/14/2019 6:44 AM 019 6:51 (specimen) EDT AM EDT Resulting Agency Comment Spec In Lab Rick Mehta [employer]OCATION SERVICES SPECIALIST HEMATOLOGY ORDERABLES Performing Organization Address City/State/[place] [address] (ABNORMAL) Differential, Automated (02/14/2019 6:44 AM EDT) [facility] Method Time Signature Neutrophils % 91.3 % [facility] Neutr Abs (ANC) 6.44 (H) 1.70 - [facility] 6.10 [facility] x10(3)/[facility] LABORATORY Lymphocytes % 7.9 % [facility] Lymphocytes Abs 0.6 (L) 0.9 - 3.2 [facility] x10(3)/[facility] LABORATORY Monocytes % 0.4 % [facility] Monocyte Abs 0.0 (L) 0.3 - 0.9 [facility] x10(3)/[facility] LABORATORY Eosinophils % 0.0 % [facility] Eosinophils Abs 0.0 0.0 - 0.4 [facility] x10(3)/[facility] LABORATORY Basophils % 0.1 % [facility] Basophils Abs 0.0 0.0 - 0.1 [facility] x10(3)/[facility] LABORATORY Immature Gran % 0.30 % [facility] Comment: Immature granulocytes(IG's)percentage an d absolute count will include metamyelocytes, myelocytes, and promyelo cytes. Blood smears from CBCs yielding IG's will be scanned manually for concor dance. If this scan disagrees with the automated IG or if promyelocytes are not ed, a manual differential will be performed. Edith Gran Abs 0.02 0.00 - 0.04 x10(3)/[facility] LABORATORY Specimen Anatomical Collection Method Collection Time Receive d Time (Source) Location / / Volume Laterality Blood specimen 02/14/2019 6:44 AM 019 6:51 (specimen) EDT AM EDT Resulting Agency Comment Spec In Lab Rick Aries Cathi LOVELL HEMATOLOGY ORDERABLES Performing Organization Address City/State/ZIP Code Phon e Number [address] Hemogram (02/14/2019 6:44 AM EDT) P athologist Signature WBC 7.1 4.0 - 9.5 [facility] x10(3)/[facility] LABORATORY RBC 4.22 4.00 - [place] 5.21 [facility] x10(6)/[facility] LABORATORY Hemoglobin 12.7 11.7 - [place] 15.5 gm/dL [facility] Hematocrit 37.4 35.7 - [facility] 45.8 % [facility] MCV 88.6 82.6 - [facility]4 [facility] LABORATORY MCH 30.1 27.1 - [facility] 32.0 pg [facility] MCHC 34.0 31.7 - [place] 35.0 gm/dL [facility] Platelets 222 145 - 357 [facility] LABORATORY RDWSD 43.5 37.0 - [facility] 46.0 [facility] LABORATORY RDWCV 13.2 11.5 - [facility] 14.1 % [facility] MPV 9.4 7.6 - 12.9 [facility] LABORATORY nRBC % Auto 0.0 % [facility] nRBC Abs Auto 0.000 0.000 - [place] 0.000 [facility] x10(3)/[facility] LABORATORY Specimen Anatomical Collection Method Collection Time Receive d Time (Source) Location / / Volume Laterality Blood specimen 02/14/2019 6:44 AM 019 6:51 (specimen) EDT AM EDT Resulting Agency Comment Spec In Lab Ricknaima Mehta APRN HEMATOLOGY ORDERABLES Performing Organization Address City/State/[place] [address] Triglyceride (02/14/2019 6:44 AM EDT) athologist Signature Triglycerides 51 mg/dL [facility] Comment: Average Risk/Lower Risk: <150 mg/dL Borderline High Risk: 150-199 mg/dL High Risk: 200-499 mg/dL Very High Risk: >ez=323 mg/dL Specimen Anatomical Collection Method Collection Time Receive d Time (Source) Location / / Volume Laterality Blood specimen 02/14/2019 6:44 AM 019 6:51 (specimen) EDT AM EDT Resulting Agency Comment Spec In Lab Rick Aries Justinezach LILIYA CHEMISTRY ORDERABLES Performing Organization Address City/State/[place] [address] HDL/Cholesterol Profile (02/14/2019 6:44 AM EDT) athologist Signature Chol, Total 170 mg/dL [facility] Comment: Lower Risk: <200 mg/dL Average Risk: 200-239 mg/dL Higher Risk: >zr=237 mg/dL HDL 77 mg/dL [facility] Comment: Males: ?? Higher Risk: <40 mg/dL Females: ?? HIgher Risk: <50 mg/dL Chol/HDL Ratio 2.2 ratio [facility] Chol/HDL Interpretation See Note [facility] Comment: Lipid management should be guided by a p atient? s ASCVD risk, goals and preferences. ACC/AHA Guidelines recommend high intens ity statin if clinical ASCVD or LDL greater than or equal to 190 mg/dL. [email or web address] Measure LDL if Total Cholesterol minus H DL Cholesterol is greater than 220 mg/dL. Adults aged 40-75 with LDL 70-189 mg/dL should have their 10 year ASCVD risk estimated with the ACC/AHA ASCVD risk es timator http://tools.acc.org/XBYAY-Pmzn-Yvvabbcy r/ Statin should be discussed if risk [...] Location / / Volume Laterality Blood specimen 02/14/2019 6:44 AM 019 6:51 (specimen) EDT AM EDT Resulting Agency Comment Spec In Lab Rick Mehta APRN CHEMISTRY ORDERABLES Performing Organization Address [facility] Phon e Number [address] LDL Cholesterol, Direct (02/14/2019 6:44 AM EDT) athologist Signature LDL Chol 86 mg/dL [facility] LABORATORY Comment: Lowest Risk: <100 mg/dL Lower Risk: 100-129 mg/dL Borderline High Risk: 130-159 mg/dL High Risk: 160-189 mg/dL Very High Risk: >to=999 mg/dL Specimen Anatomical Collection Method Collection Time Receive d Time (Source) Location / / Volume Laterality Blood specimen 02/14/2019 6:44 AM 019 6:51 (specimen) EDT AM EDT Resulting Agency Comment Spec In Lab Rick Mehta APRN CHEMISTRY ORDERABLES Performing Organization Address [facility] Phon e Number [address] Hemoglobin A1c (02/14/2019 6:44 AM EDT) athologist Signature Hemoglobin A1C 5.2 4.3 - 5.6 [facility] Comment: Reference Range: 4.3 - [...] Mellitus, Diabetes Care 2013; 36: Suppl. 1, S67-64 Est Avg Gluc See note mg/dL [facility] Comment: Estimated Average Glucose not [...] with hemoglobinopathies. Additional resources are available on [facility] ADA website. Jamar ESPINOZA, Palmer J, Collins R, et al. ??Tr anslating the A1C assay into estimated average glucose values. ??Diabetes Care 2008:31(8):0554-6104. Specimen Anatomical Collection Method Collection Time Receive d Time (Source) Location / / Volume Laterality Blood specimen 02/14/2019 6:44 AM 019 6:51 (specimen) EDT AM EDT Resulting Agency Comment Spec In Lab Rick Mehta APRN CHEMISTRY ORDERABLES Performing Organization Address City/State/[place] [address] Magnesium (02/14/2019 6:44 AM EDT) athologist Signature Magnesium 0.83 0.69 - 1.07 [facility] mmol/L [facility] Specimen Anatomical Collection Method Collection Time Receive d Time (Source) Location / / Volume Laterality Blood specimen 02/14/2019 6:44 AM 019 6:51 (specimen) EDT AM EDT Resulting Agency Comment Spec In Lab Rick Mehta RELOCATION SERVICES SPECIALIST CHEMISTRY ORDERABLES Performing Organization Address City/State/[place] [address] (ABNORMAL) BMP w/fasting Glucose (02/14/2019 6:44 AM EDT) P athologist Signature Glucose 162 (H) 65 - 99 [facility] Fasting mg/dL [facility] Comment: ?Fasting* Glucose Interpretive C riteria [...] of Diabetes Mellitus, Position Statement from the [place] [employer]. ??Diabete s Care, Volume 33, Supplement 1, May 2009 BUN 14 8 - 18 mg/dL [facility] Creatinine 0.59 (L) 0.70 - 1.20 mg/dL [facility] Sodium 140 135 - 145 mmol/L [facility] Potassium 3.9 3.5 - 5.0 mmol/L [facility] Comment: Please note: ??Patients with WBC >100,00 0 may have falsely elevated Potassium levels. ??For accurate Potassium quantif ication in these patients send serum separator tube (gold top) for subsequent determinations. ??Contact the Clinical Chemistry Laboratory if there are any qu estions. Chloride 105 98 - 107 mmol/L [facility] CO2 21 (L) 22 - 31 mmol/L [facility] Anion Gap 14 5 - 15 mmol/L [facility] Calcium 9.2 8.5 - 10.5 mg/dL [facility] Estimated GFR 90 >=60 mL/min/1.73 m?? [facility] Comment: The eGFR was calculated using the CKD-EP I equation. As with all creatinine based estimates of kidney function, eGFR values calculated with the CKD-EPI equation are not accurate in patients wi th acute kidney failure, extremes of body mass or the acutely ill. [email or web address] – MIAMInkf eGFR 104 >=60 mL/min/1.73 m?? [facility] Comment: The eGFR was calculated using the CKD-EP I equation. As with all creatinine based estimates of kidney function, eGFR values calculated with the CKD-EPI equation are not accurate in patients wi th acute kidney failure, extremes of body mass or the acutely ill. [email or web address] MIAMInkf Specimen Anatomical Collection Method Collection Time Receive d Time (Source) Location / / Volume Laterality Blood specimen 02/14/2019 6:44 AM 019 6:51 (specimen) EDT AM EDT Resulting Agency Comment Spec In Lab Rick Mehta APRN CHEMISTRY ORDERABLES Performing Organization Address City/State/[place] [address] EKG 12 Lead (02/14/2019 6:29 AM EDT) Component Value Ref Range Test Analysis Performed Pathologis t Method Time At Signature Ventricular rate 61 BPM MUSE SYSTEM Atrial Rate 61 BPM MUSE SYSTEM P-R Interval 172 ms MUSE SYSTEM QRS Duration 102 ms MUSE SYSTEM Q-T Interval 408 ms MUSE SYSTEM QTC Calculated 410 ms MUSE SYSTEM (Bezet) Calculated P [place] 52 degrees MUSE SYSTEM Calculated R [place] 41 degrees MUSE SYSTEM Calculated T [place] 64 degrees MUSE SYSTEM INTERPRETATION Normal sinus rhythm MUSE SYSTEM Normal ECG When compared with ECG of 13-FEB-2019 15:14, Premature ventricular complexes are no longer Present Confirmed by MD Otis, Karen Quintanilla ([id number]) on 02/14/2019 4:04: 16 PM Specimen Anatomical Collection Method Collection Time Receive d Time (Source) Location / / Volume Laterality 02/14/2019 6:29 AM 9 4:04 EDT PM EDT Rick Mehta APRN ECG ORDERABLES Performing Organization Address City/State/ZIP Code Phon e Number MUSE SYSTEM Heparin (unfractionated) Level (02/14/2019 12:52 AM EDT) athologist Signature Heparin UFH 0.64 IU/mL [facility] Comment: Guidelines for therapeutic unfractionate d heparin levels are summarized below. Heparin (Anti-Xa) levels should be deter mined in a plasma sample that has been drawn 6 hours after a dose change i.e., steady-state has been reached. DRUG ?Dos ing Schedule ? Target Peak Steady-State ?Heparin (Anti-Xa) Levels (Units/mL) Unfractionated ?Continuous inf usion ?0.3-0.7 Heparin ?0.3-0.6 fo r some neurology indications Specimen Anatomical Collection Method Collection Time Receive d Time (Source) Location / / Volume Laterality Blood specimen 02/14/2019 12:52 9 (specimen) AM EDT 12:57 AM EDT Resulting Agency Comment Spec In Lab John Hua MD HEMATOLOGY ORDERABLES Performing Organization Address City/[facility]/[place] [address] Troponin (02/13/2019 9:30 PM EDT) athologist Signature Troponin-T <0.01 0.00 - 0.00 [facility] ng/mL [facility] Comment: The 99th percentile for Troponin T is le ss than 0.01 ng/mL, any detectable cTnT concentration using this assay should be considered elevated. According to the third universal definit ion of myocardial infarction the following criteria with a clinical prese ntation consistent with acute myocardial ischemia meets the diagnosis for a myocardial infarction (MN). Detection of a rise and/or fall of cTnT, with at least one value greater than the 99th percentile (> or = 0.01) and wi th at least one of the following ?? Symptoms of ischemia ?? New or presumed new significant ST-se gment-T wave (ST-T) changes or new left bundle branch block (LBBB) ?? Development of pathologic Q waves in the ECG ?? Imaging evidence of new loss of viabl e myocardium or new regional wall motion abnormality ?? Identification of an intracoronary th rombus by angiography or autopsy Samples for cTnT testing should be obtai montrell serially upon first assessment and again 3 to 6 hours later. If the clinica l suspicion is high and previous samples have been negative an additional sample may be indicated. Reference: Third [place] Definition of Myocardial Infarction. Journal of the [place] College [employer] Cardiology 2012;60:1581-98 Specimen Anatomical Collection Method Collection Time Receive d Time (Source) Location / / Volume Laterality Blood specimen 02/13/2019 9:30 PM 019 9:59 (specimen) EDT PM EDT Resulting Agency Comment Spec In Lab Rick Mehta RELOCATION SERVICES SPECIALIST CHEMISTRY ORDERABLES Performing Organization Address City/State/[place] [address] (ABNORMAL) Hepatic Function Panel (02/13/2019 3:53 PM EDT) P athologist Signature Total Protein 6.9 6.1 - 8.0 [facility] gm/dL [facility] Albumin 3.9 3.2 - 5.2 [place] gm/dL [facility] AST 22 0 - 30 [place] unit/L [facility] ALT 14 0 - 30 [place] unit/L [facility] Alk Phos 110 (H) 35 - 105 [place] unit/L [facility] Total 0.7 0.2 - 1.3 [facility] Bilirubin mg/dL [facility] Bili, Direct 0.2 0.0 - 0.3 [place] mg/dL [facility] Specimen Anatomical Collection Method Collection Time Receive d Time (Source) Location / / Volume Laterality Blood specimen Venous Draw / 02/13/2019 3:53 PM 2018 4:00 (specimen) Unknown EDT PM EDT Resulting Agency Comment Spec In Lab Rick Mehta LILIYA CHEMISTRY ORDERABLES Performing Organization Address City/State/[place] [address] Lipid Panel (Reflex Direct LDL) (02/13/2019 3:53 PM EDT) athologist Signature Chol, Total 165 mg/dL [facility] Comment: Lower Risk: <200 mg/dL Average Risk: 200-239 mg/dL Higher Risk: >bg=002 mg/dL Triglycerides 79 mg/dL [facility] Comment: Average Risk/Lower Risk: <150 mg/dL Borderline High Risk: 150-199 mg/dL High Risk: 200-499 mg/dL Very High Risk: >yy=516 mg/dL HDL 65 mg/dL [facility] Comment: Males: ?? Higher Risk: <40 mg/dL Females: ?? HIgher Risk: <50 mg/dL LDL Cholesterol 84 mg/dL [facility] Comment: Lowest Risk: <100 mg/dL Lower Risk: 100-129 mg/dL Borderline High Risk: 130-159 mg/dL High Risk: 160-189 mg/dL Very High Risk: >fg=802 mg/dL Chol/HDL Ratio 2.5 ratio [facility] Lipid Interpretation See Note [facility] Comment: Lipid management should be guided by a p atient? s ASCVD risk, goals and preferences. ACC/AHA Guidelines recommend high intens ity statin if clinical ASCVD or LDL greater than or equal to 190 mg/dL. http://tinyurl.com/SXM-JEM-Ofbkarazx Adults aged 40-75 with LDL 70-189 mg/dL should have their 10 year ASCVD risk estimated with the ACC/AHA ASCVD risk es timator http://tools.acc.org/RFTLY-Ojny-Pstmuwzl r/ Statin should be discussed if risk great er than or equal to 7.5% in non-diabetics. With diabetes, moderate i ntensity statin is recommended if risk less than 7.5%, high intensity if risk g reater than or equal to 7.5%. Annual lipid monitoring on statins is no t necessary. Evaluate secondary causes of Triglycerid es greater than 500 mg/dL or LDL greater than 190 mg/dL: See table 6 of A CC/AHA Guideline. Lifestyle modification is a critical com ponent of ASCVD risk reduction. Specimen Anatomical Collection Method Collection Time Receive d Time (Source) Location / / Volume Laterality Blood specimen Venous Draw / 02/13/2019 3:53 PM 2018 4:00 (specimen) Unknown EDT PM EDT Resulting Agency Comment Spec In Lab Rick Mehta APRN CHEMISTRY ORDERABLES Performing Organization Address [facility]/[place] [address] Heparin (unfractionated) Level (02/13/2019 3:53 PM EDT) athologist Signature Heparin UFH 0.22 IU/mL [facility] Comment: Guidelines for therapeutic unfractionate d heparin levels are summarized below. Heparin (Anti-Xa) levels should be deter mined in a plasma sample that has been drawn 6 hours after a dose change i.e., steady-state has been reached. DRUG ?Dos ing Schedule ? Target Peak Steady-State ?Heparin (Anti-Xa) Levels (Units/mL) Unfractionated ?Continuous inf usion ?0.3-0.7 Heparin ?0.3-0.6 fo r some neurology indications Specimen Anatomical Collection Method Collection Time Receive d Time (Source) Location / / Volume Laterality Blood specimen 02/13/2019 3:53 PM 019 3:59 (specimen) EDT PM EDT Resulting Agency Comment Spec In Lab Rick Mehta APRN HEMATOLOGY ORDERABLES Performing Organization Address [facility]/State/[place] [address] Troponin (02/13/2019 3:53 PM EDT) P athologist Signature Troponin-T <0.01 0.00 - 0.00 [facility] ng[facility]mL [facility] Comment: The 99th percentile for Troponin T is le ss than 0.01 ng/mL, any detectable cTnT concentration using this assay should be considered elevated. According to the third universal definit ion of myocardial infarction the following criteria with a clinical prese ntation consistent with acute myocardial ischemia meets the diagnosis for a myocardial infarction (MN). Detection of a rise and/or fall of cTnT, with at least one value greater than the 99th percentile (> or = 0.01) and wi th at least one of the following ?? Symptoms of ischemia ?? New or presumed new significant ST-se gment-T wave (ST-T) changes or new left bundle branch block (LBBB) ?? Development of pathologic Q waves in the ECG ?? Imaging evidence of new loss of viabl e myocardium or new regional wall motion abnormality ?? Identification of an intracoronary th rombus by angiography or autopsy Samples for cTnT testing should be obtai montrell serially upon first assessment and again 3 to 6 hours later. If the clinica l suspicion is high and previous samples have been negative an additional sample may be indicated. Reference: Third [place] Definition of Myocardial Infarction. Journal of the [place] [employer] 2012;60:1581-98 Specimen Anatomical Collection Method Collection Time Receive d Time (Source) Location / / Volume Laterality Blood specimen 02/13/2019 3:53 PM 019 3:59 (specimen) EDT PM EDT Resulting Agency Comment Spec In Lab Rick Mehta RELOCATION SERVICES SPECIALIST CHEMISTRY ORDERABLES Performing Organization Address City/State/[place] [address] (ABNORMAL) APTT (02/13/2019 3:53 PM EDT) P athologist Signature PTT 93 (H) 25 - 37 sec [facility] Comment: The PTT is NOT appropriate for heparin m onitoring. Use the Anti-Xa level for heparin monitoring (HEP UFH) or LMWH mon itoring (HEP LMW). A PTT less than 37 seconds generally indicates adequate hem ostasis. Specimen Anatomical Collection Method Collection Time Receive d Time (Source) Location / / Volume Laterality Blood specimen 02/13/2019 3:53 PM 019 3:59 (specimen) EDT PM EDT Resulting Agency Comment Spec In Lab Rick Mehta RELOCATION SERVICES SPECIALIST HEMATOLOGY ORDERABLES Performing Organization Address City/[facility]/[place]IP [facility] [place] [address] Prothrombin Time (02/13/2019 3:53 PM EDT) P athologist Signature PT 12.4 9.4 - 12.5 [facility] LABORATORY INR 1.1 [facility] Comment: An INR <2.0 indicates adequate [...] Location / / Volume Laterality Blood specimen 02/13/2019 3:53 PM 019 3:59 (specimen) EDT PM EDT Resulting Agency Comment Spec In Lab Rick FletcherLujan HEMATOLOGY ORDERABLES Performing Organization Address City/[facility]/[place]IP [place] [address] EKG 12 Lead (02/13/2019 3:14 PM EDT) Component Value Ref Range Test Analysis Performed Pathologis t Method Time At Signature Ventricular rate 88 BPM MUSE SYSTEM Atrial Rate 88 BPM MUSE SYSTEM P-R Interval 176 ms MUSE SYSTEM QRS Duration 94 ms MUSE SYSTEM Q-T Interval 354 ms MUSE SYSTEM QTC Calculated 428 ms MUSE SYSTEM (Bezet) Calculated P [place] 51 degrees MUSE SYSTEM Calculated R [place] 36 degrees MUSE SYSTEM Calculated T [place] 60 degrees MUSE SYSTEM INTERPRETATION Sinus rhythm with frequent P remature ventricular complexes in a pattern of bigeminy MUSE SYSTEM Otherwise normal ECG When compared with ECG of 04-JAN-2019 14:48, Premature ventricular complexes are now Present Confirmed by MD Otis, Karen Quintanilla ([id number]) on 02/14/2019 11:16 :48 AM Specimen Anatomical Collection Method Collection Time Receive d Time (Source) Location / / Volume Laterality 02/13/2019 3:14 PM 9 EDT 11:16 AM EDT Rick Mehta RELOCATION SERVICES SPECIALIST ECG ORDERABLES Performing Organization Address City/State/ZIP Code Phon e Number MUSE SYSTEM documented in this encounter Visit Diagnoses Not on filedocumented in this encounter Admitting Diagnoses Diagnosis Angina at rest Other and unspecified angina pectoris documented in this encounter Administered Medications Inactive Administered Medications - up to 3 most recent administrations Medication Order MAR Action Action Date Dose Rate Site acetaminophen (TYLENOL) tablet Given 02/14/2019 9:31 PM EDT 1,00 0 mg 1,000 mg 1,000 mg, Oral, EVERY 6 HOURS PRN, Starting on 02/13/19 at 1657, Until 02/17/19 at 1749, Pain, Maximum dose of acetaminophen is 4000 mg from all sources in 24 hours., Routine Given 02/13/2019 9:34 PM EDT 1,000 mg aspirin EC tablet 81 mg Given 02/17/2019 8:38 AM EDT 81 mg 81 mg, Oral, DAILY, First dose on 02/14/19 at 0900, Until Discontinued, Routine Given 02/16/2019 9:03 AM EDT 81 mg Given 02/15/2019 8:08 AM EDT 81 mg budesonide-formoterol (SYMBICORT) Given 02/15/2019 10:05 AM EDT 2 Inhalation 160-4.5 mcg/actuation inhaler 2 Inhalation 2 Inhalation, Inhalation, 2 TIMES DAILY, First dose on 02/13/19 at 2100, Until Discontinued Given 02/14/2019 9:34 AM EDT 2 Inhalation Given 02/13/2019 8:52 PM EDT 2 Inhalation cholecalciferol (Vitamin D3) tablet Given 02/17/2019 8:38 AM EDT 2,000 Units 2,000 Units 2,000 Units, Oral, 2 TIMES DAILY, First dose on 02/13/19 at 2100, Until Discontinued, Routine Given 02/16/2019 8:14 PM EDT 2,000 Units Given 02/16/2019 9:03 AM EDT 2,000 Units cycloSPORINE (RESTASIS) 0.05 % ophthalmic Given 02/17/2019 8:50 AM EDT 1 drop emulsion 1 drop 1 drop, Both Eyes, 2 TIMES DAILY, First dose on 02/13/19 at 2100, Until Discontinued, Routine Given 02/16/2019 8:14 PM EDT 1 drop Given 02/16/2019 9:02 AM EDT 1 drop docusate sodium (COLACE) capsule 100 mg Given 02/15/2019 10:06 AM EDT 100 mg 100 mg, Oral, 2 TIMES DAILY, First dose on 02/13/19 at 2100, Until Discontinued, Routine Given 02/14/2019 9:30 AM EDT 100 mg famotidine (PEPCID) tablet 20 mg Given 02/17/2019 8:38 AM EDT 20 mg 20 mg, Oral, 2 TIMES DAILY, First dose on 02/13/19 at 2100, Until Discontinued, Routine Given 02/16/2019 8:14 PM EDT 20 mg Given 02/16/2019 9:03 AM EDT 20 mg fentaNYL 50 mcg/mL multi-dose injection Given 02/16/2019 4:28 PM EDT 25 mcg ONCE PRN, Starting on Fri02/16/19 at 1459, Until Fri02/16/19 at 1733, Intra-Operative (Intra-Procedure), Routine Given 02/16/2019 2:59 PM EDT 25 mcg fluticasone propionate (FLONASE) 50 Given 02/14/2019 8:51 PM EDT 2 sprays mcg/actuation nasal spray 2 spray 2 spray, Each Nare, NIGHTLY, First dose on 02/13/19 at 2100, Until Discontinued, Routine Given 02/13/2019 8:51 PM EDT 2 sprays heparin (porcine) injection Given 02/16/2019 3:34 PM EDT 5,000 Units ONCE PRN, Starting on Fri02/16/19 at 1534, Until Fri02/16/19 at 1733, Cath (Intra-Procedure), Routine iohexol (OMNIPAQUE) 350 mg/mL solution Given 02/16/2019 4:43 PM EDT 160 mLs ONCE PRN, Starting on Fri02/16/19 at 1643, Until Fri02/16/19 at 1733, Cath (Intra-Procedure), Routine levothyroxine (SYNTHROID) tablet 75 mcg Given 02/17/2019 5:38 AM EDT 75 mcg 75 mcg, Oral, EVERY MORNING, First dose on 02/14/19 at 0600, Until Discontinued, Routine Given 02/16/2019 6:08 AM EDT 75 mcg Given 02/15/2019 5:56 AM EDT 75 mcg losartan (COZAAR) tablet 50 mg Given 02/17/2019 8:38 AM EDT 50 mg 50 mg, Oral, DAILY, First dose on 02/13/19 at 1715, Until Discontinued, Routine Given 02/16/2019 9:03 AM EDT 50 mg Given 02/15/2019 10:06 AM EDT 50 mg metoprolol succinate (TOPROL-XL) XL tabl et 75 mg 75 mg, Oral, DAILY, First dose (after la st modification) on Razia 02/18/19 at 0900, Until Discontinued, DO NOT CRUSH OR OPEN, Routine midazolam (PF) (VERSED) multi-dose injec tion Given 02/16/2019 4:28 PM EDT 0.5 mg ONCE PRN, Starting on Fri02/16/19 at 1459, Until Fri02/16/19 at 1733, Cath (Intra-Procedure), Routine Given 02/16/2019 2:59 PM EDT 1 mg montelukast (SINGULAIR) tablet 10 mg Given 02/16/2019 8:14 PM EDT 10 mg 10 mg, Oral, NIGHTLY, First dose on 02/13/19 at 2100, Until Discontinued, Routine Given 02/15/2019 8:58 PM EDT 10 mg Given 02/14/2019 8:51 PM EDT 10 mg multivitamin with minerals (THERA-M) tablet Given 01/2019 8:38 AM EDT 1 tablet 1 tablet 1 tablet, Oral, DAILY, First dose on 02/14/19 at 0900, Until Discontinued, Routine Given 02/16/2019 9:03 AM EDT 1 tablet Given 02/14/2019 9:30 AM EDT 1 tablet nitroGLYcerin 100 mcg/mL intracoronary Given 02/16/2019 3:54 PM EDT 200 mcg dilution ONCE PRN, Starting on Fri02/16/19 at 1531, Until Fri02/16/19 at 1733, Cath (Intra-Procedure), Routine Given 02/16/2019 3:31 PM EDT 100 mcg nitroGLYcerin 50 mg in Rate/Dose Change 02/14/2019 7:56 AM EDT 20 m cg/min 6 mL/hr dextrose 5% 250 mL infusion 10 mcg/min (3 mL/hr), Intravenous, CONTINUOUS, Starting on 02/13/19 at 1530, Until Fri02/17/19 at 1749, Initiate at 10 mcg/minute for pain not responsive to sublingual nitroGLYcerin and if SBP is 100 mmHG or greater. Increase dose 10 mcg/minute every 5 minutes if SBP is 100 mmHG or greater to maximum dose 100 mcg/minute. Titrate to pain 3/10 or less Hold for SBP less than 90 mmHG AND call provider, Routine Rate/Dose Change 02/14/2019 6:47 AM EDT 15 mcg/min 4.5 mL/hr Rate/Dose Change 02/14/2019 12:01 AM EDT 10 mcg/min 3 mL/hr rosuvastatin (CRESTOR) tablet 5 mg Given 02/16/2019 6:01 PM EDT 5 mg 5 mg, Oral, EVERY EVENING, First dose on 02/14/19 at 1700, Until Discontinued, Routine Given 02/15/2019 4:57 PM EDT 5 mg Given 02/14/2019 5:20 PM EDT 5 mg sodium chloride 0.9% infusion New Bag 02/14/2019 11:39 PM EDT 50 mL/hr 50 mL/hr 50 mL/hr, Intravenous, CONTINUOUS, Starting on 02/15/19 at 0000, Until Fri02/17/19 at 1749 sodium chloride 0.9% infusion New Bag 02/16/2019 3:41 PM EDT 250 mLs CONTINUOUS PRN, Starting on Fri02/16/19 at 1541, Until Fri02/16/19 at 1541, Cath (Intra-Procedure) ticagrelor (BRILINTA) tablet 90 mg Given 02/17/2019 8:38 AM EDT 90 mg 90 mg, Oral, 2 TIMES DAILY, First dose on 02/13/19 at 2100, Until Discontinued, After initial loading dose of aspirin (usually 325 mg), use ticagrelor with daily maintenance dose of aspirin of 81 mg , Routine, After the initial loading dose of aspirin (usually 325 mg), use ticagrelor with a daily maintenance dose of aspirin 81 mg. Is this patient on 81 mg of aspirin? Yes Given 02/16/2019 8:14 PM EDT 90 mg Given 02/16/2019 9:03 AM EDT 90 mg ubiquinone (coenzyme Q10) capsule 100 mg Given 02/17/2019 8:50 AM EDT 100 mg 100 mg, Oral, DAILY, First dose on 02/14/19 at 0900, Until Discontinued, Routine Given 02/16/2019 9:04 AM EDT 100 mg Given 02/15/2019 10:08 AM EDT 100 mg verapamil (ISOPTIN) injection Given 02/16/2019 3:31 PM EDT 2 mg ONCE PRN, Starting on Fri02/16/19 at 1531, Until Fri02/16/19 at 1733, Administer over 2 Minutes, Cath (Intra-Procedure) documented in this encounter Active and Recently Administered Medications Times are shown in EDT. Scheduled Medication Order 02/15/2019 02/16/2019 02/17/2019 aspirin EC tablet 81 mg 0758 (JUL Hold - Provider: A dmin Adt - Reason: Transfer to a Procedural area)0808 (Given - Provider: Steffany Morris RN)0957 (MAR Unhold - Provider: Admin Adt) 0903 (Given - Provider: Delma Campos nd, RN)1436 (MAR Hold - Provider: Admin Adt - Reason: Transfer to a Procedural area)1733 (MAR Unhold - Provider: Admin Adt) 0838 (Given - Provider: Delma Dotson, LONNIE) 81 mg, Oral, DAILY, First dose on Sun at 0900, Until Discontinued, Routine budesonide-formoterol (SYMBICORT) 160-4.5 mcg/actuatio n inhaler 2 Inhalation 0758 (JUL Hold - Provider: Admin Adt - Reason: Transfer to a Procedural area)0900 (Automatically Held - Provider: Admin Adt)0957 (MAR Unhold - Provider: Admin Adt)1005 (Given - Provider: Oxana Tran RN) 0902 (Not Given - Provider: Delma Dotson RN - Reason: Patient/family refused)1436 (MAR Hold - Provider: Admin Adt - Reason: Transfer to a Procedural area)1733 (MAR Unhold - Provider: Admin Adt) 0848 (Not Given - Provider: Delma mcduffie RN - Reason: Patient/family refused) 2 Inhalation, Inhalation, 2 TIMES DAILY, First dose on 02/13/19 at 2100, Until Discontinued 2099 (Not Given - Provider: Alesha Gottlieb RN - Reason: Patient/family refused) 2099 (Not Given - Provider: Alesha Gottlieb RN - Reason: Patient/family refused) cholecalciferol (Vitamin D3) tablet 2,000 Units 0758 ( JUL Hold - Provider: Admin Adt - Reason: Transfer to a Procedural area)0900 (Automatically Held - Provider: Admin Adt)0957 ([facility] Unhold - Provider: Admin Adt)1005 (Given - Provider: Oxana Tran RN)2056 (Given - Provider: Alesha Gottlieb RN) 0903 (Given - Provider: Delma Dotson RN)143 ([facility] Hold - Provider: Admin Adt - Reason: Transfer to a Procedural area)1732 ([facility] Unhold - Provider: Admin Adt)2013 (Given - Provider: Alesha Gottlieb RN) 0838 (Given - Provider: Delma Campos nd, LONNIE) 2,000 Units, Oral, 2 TIMES DAILY, First dose on 02/13/19 at 2099, Until Discontinued, Routine cycloSPORINE (RESTASIS) 0.05 % ophthalmic emulsion 1 d rop 0758 ([facility] Hold - Provider: Admin Adt - Reason: Transfer to a Procedural area)0900 (Automatically Held - Provider: Admin Adt)0957 ([facility] Unhold - Provider: Admin Adt)2056 (Given - Provider: Alesha Gottlieb RN) 0902 (Given - Provider: Delma Campos nd, RN)143 ([facility] Hold - Provider: Admin Adt - Reason: Transfer to a Procedural area)173 ([facility] Unhold - Provider: Admin Adt)2013 (Given - Provider: Alesha Gottlieb RN) 0850 (Given - Provider: Delma Dotson RN) 1 drop, Both Eyes, 2 TIMES DAILY, First dose on 02/13/19 at 2100, Until Discontinued, Routine docusate sodium (COLACE) capsule 100 mg 0758 ([facility] Hold - Provider: Admin Adt - Reason: Transfer to a Procedural area)0900 (Automatically Held - Provider: Admin Adt)0957 ([facility] Unhold - Provider: Admin Adt)1006 (Given - Provider: Oxana salinas RN) 0900 (Not Given - Provider: Delma mcduffie RN - Reason: Patient/family refused)1436 ([facility] Hold - Provider: Admin Adt - Reason: Transfer to a Procedural area)1733 ([facility] Unhold - Provider: Admin Adt) 0900 (Not Given - Provider: Delma Dotson RN - Reason: Patient/family refused) 100 mg, Oral, 2 TIMES DAILY, First dose on 02/13/19 at 2100, Until Discontinued, Routine 2099 (Not Given - Provider: Alesha Gottileb RN - Reason: Patient/family refused) 2099 (Not Given - Provider: Alesha Gottlieb RN - Reason: Patient/family refused) famotidine (PEPCID) tablet 20 mg 0758 (JUL Hold - Prov ider: Admin Adt - Reason: Transfer to a Procedural area)0900 (Automatically Held - Provider: Admin Adt)0957 ([facility] Unhold - Provider: Admin Adt)1006 (Given - Provider: Oxana salinas RN)2058 (Given - Provider: Alesha Gottlieb RN) 0903 (Given - Provider: Delma Dotson RN)143 ([facility] Hold - Provider: Admin Adt - Reason: Transfer to a Procedural area)173 ([facility] Unhold - Provider: Admin Adt)2013 (Given - Provider: Alesha Gottlieb RN) 0838 (Given - Provider: Delma Campos nd RN) 20 mg, Oral, 2 TIMES DAILY, First dose o n 02/13/19 at 2100, Until Discontinued, Routine fluticasone propionate (FLONASE) 50 mcg/actuation nasa l spray 2 spray 0758 ([facility] Hold - Provider: Admin Adt - Reason: Transfer to a Procedural area)0957 ([facility] Unhold - Provider: Admin Adt)2100 (Not Given - Provider: Alesha Gottlieb RN - Reason: Patient/family refused) 1436 ([facility] Hold - Provider: Admin Adt - R miguel angel: Transfer to a Procedural area)1733 ([facility] Unhold - Provider: Admin Adt)2099 (Not Given - Provider: Alesha Gottlieb RN - Reason: Patient/family refused) 2 spray, Each Nare, NIGHTLY, First dose on 02/13/19 at 2100, Until Discontinued, Routine hyaluronidase (ovine) (VITRASE) injection 1-10 mL (COM PLETED) 0445 (Given - Provider: Shana Connors RN) 1-10 mL, Subcutaneous, ONCE, 1 dose, 02/15/19 at 0415, Hyaluronidase is supplied in a 1-mL vial at a concentration of 200 units/mL. Dilute with 9 mL of normal saline. This yields the desired concentr ation of 20 units/mL. Draw up 1 mL incre ments of the diluted solution into a 1- mL syringe with a 26-g needle. Instill 0.2 -mL aliquots of the solution at least every 2 - 3 centimeters or five evenly [place] aliquots subcutaneously around the p eriphery of the infiltrated area. Use a new 26-gauge needle for each injection. This is best done within one hour of the extravasation. Discard the remaining solution. , STAT levothyroxine (SYNTHROID) tablet 75 mcg 0556 (Given - Provider: Omari Pollard RN)0758 (MAR Hold - Provider: Admin Adt - Reason: Transfer to a Procedural area)0957 (MAR Unhold - Provider: Admin Adt) 0608 (Given - Provider: Alesha Gottlieb RN)1436 (MAR Hold - Provider: Admin Adt - Reason: Transfer to a Procedural area)1733 ([facility] Unhold - Provider: Admin Adt) 0538 (Given - Provider: Alesha Gottlieb RN) 75 mcg, Oral, EVERY MORNING, First dose on 02/14/19 at 0600, Until Discontinued, Routine losartan (COZAAR) tablet 50 mg 0758 (MAR Hold - Provid er: Admin Adt - Reason: Transfer to a Procedural area)0900 (Automatically Held - Provider: Admin Adt)0957 (MAR Unhold - Provider: Admin Adt)1006 (Given - Provider: Oxana salinas RN) 0903 (Given - Provider: Delma Campos nd, RN)1436 (MAR Hold - Provider: Admin Adt - Reason: Transfer to a Procedural area)1733 (MAR Unhold - Provider: Admin Adt) 0838 (Given - Provider: Delma Campos nd, RN) 50 mg, Oral, DAILY, First dose on Sat at 1715, Until Discontinued, Routine metoprolol (LOPRESSOR) tablet 12.5 mg (CANCELED) 0556 (Given - Provider: Omari Pollard RN)0758 (JUL Hold - Provider: Admin Adt - Reason: Transfer to a Procedural area)0957 (JUL Unhold - Provider: Admin Adt) 0056 (Given - Provider: Alesha Gottlieb RN)0608 (Given - Provider: Alesha Gottlieb RN)1137 (Given - Provider: Delma Dotson RN)1436 (JUL Hold - Provider: Admin Adt - Reason: Transfer to a Procedural area)1733 (JUL Unhold - Provider: Admin Adt) 0103 (Given - Provider: Alesha Gottlieb RN)0538 (Given - Provider: Alesha Gottlieb RN) 12.5 mg, Oral, EVERY 6 HOURS SCHEDULED, First dose on 02/13/19 at 1800, Until Discontinued, Hold for SBP less than 90 mmHG or HR less than 50 beats per minute, Routine 1200 (Not Given - Provider: Oxana ruggiero RN - Reason: Transfer to a Procedural area)1656 (Given - Provider: Oxana Tran RN)2000 (Given - Provider: Alesha Gottlieb RN - Comment: not given on previous shift) 1801 (Given - Provider: Delma Dotson RN) metoprolol succinate (TOPROL-XL) XL tablet 50 mg (CANCELED) 1204 (Given - Provider: Delma Dotson, LONNIE) 50 mg, Oral, DAILY, First dose on Fri at 1130, Until Discontinued, DO NOT CRUSH OR OPEN, Routine metoprolol succinate (TOPROL-XL) XL tablet 75 mg 75 mg, Oral, DAILY, First dose on Razia at 0900, Until Discontinued, DO NOT CRUSH OR OPEN, Routine montelukast (SINGULAIR) tablet 10 mg 0758 (JUL Hold - Provider: Admin Adt - Reason: Transfer to a Procedural area)0957 (JUL Unhold - Provider: Admin Adt)2058 (Given - Provider: Alesha Gottlieb RN) 1436 (JUL Hold - Provider: Admin Adt - Reason: Transfer to a Procedural area)1733 (JUL Unhold - Provider: Admin Adt)2013 (Given - Provider: Alesha Gottlieb RN) 10 mg, Oral, NIGHTLY, First dose on 02/13/19 at 2100, Until Discontinued, Routine multivitamin with minerals (THERA-M) tablet 1 tablet 0 758 (JUL Hold - Provider: Admin Adt - Reason: Transfer to a Procedural area)0900 (Automatically Held - Provider: Admin Adt)0957 (JUL Unhold - Provider: Admin Adt) 0903 (Given - Provider: Delma Dotson RN)1436 (JUL Hold - Provider: Admin Adt - Reason: Transfer to a Procedural area)1733 (JUL Unhold - Provider: Admin Adt) 0838 (Given - Provider: Delma Dotson RN) 1 tablet, Oral, DAILY, First dose on 02/14/19 at 0900, Until Discontinued, Routine predniSONE (DELTASONE) tablet 60 mg (COMPLETED) 0556 ( Given - Provider: Omari Pollard RN) 60 mg, Oral, EVERY 6 HOURS SCHEDULED, 3 doses, First dose on 02/14/19 at 1800, Last dose on 02/15/19 at 0600, 60mg twice daily the day before and at 6 am on the day of procedure., Routine rosuvastatin (CRESTOR) tablet 5 mg 0758 (JUL Hold - Pr ovider: Admin Adt - Reason: Transfer to a Procedural area)0957 (JUL Unhold - Provider: Admin Adt)1657 (Given - Provider: Oxana Tran RN) 1436 (JUL Hold - Provider: Admin Adt - Reason: Transfer to a Procedural area)1700 (Automatically Held - Provider: Admin Adt)1733 (JUL Unhold - Provider: Admin Adt)1801 (Given - Provider: Delma Dotson RN) 5 mg, Oral, EVERY EVENING, First dose on 02/14/19 at 1700, Until Discontinued, Routine ticagrelor (BRILINTA) tablet 90 mg 0758 (Jul - Pr ovider: Admin Adt - Reason: Transfer to a Procedural area)0807 (Given - Provider: Steffany Morris RN)0957 (JUL Unhold - Provider: Admin Adt)205 (Given - Provider: Alesha Gottlieb RN) 0903 (Given - Provider: Delma Campos nd, RN)1436 (JUL Hold - Provider: Admin Adt - Reason: Transfer to a Procedural area)1733 (JUL Unhold - Provider: Admin Adt)2013 (Given - Provider: Alesha Gottlieb RN) 0838 (Given - Provider: Delma Dotson, LONNIE) 90 mg, Oral, 2 TIMES DAILY, First dose o n 02/13/19 at 2100, Until Discontinued, After initial loading dose of aspirin (usually 325 mg), use ticagrelor with daily maintenance dose of aspirin of 81 mg , Routine ubiquinone (coenzyme Q10) capsule 100 mg 0758 (JUL Hol d - Provider: Admin Adt - Reason: Transfer to a Procedural area)0900 (Automatically Held - Provider: Admin Adt)0957 (JUL Unhold - Provider: Admin Adt)1008 (Given - Provider: Oxana salinas RN) 0904 (Given - Provider: Delma Campos nd, LONNIE)1436 ([facility] Hold - Provider: Admin Adt - Reason: Transfer to a Procedural area)1733 ([facility] Unhold - Provider: Admin Adt) 0850 (Given - Provider: Delma Campos nd, LONNIE) 100 mg, Oral, DAILY, First dose on Sun 1 at 0900, Until Discontinued, Routine Continuous Medication Order 02/15/2019 02/16/2019 02/17/2019 nitroGLYcerin 50 mg in dextrose 5% 250 mL infusion 075 8 (JUL Hold - Provider: Admin Adt - Reason: Transfer to a Procedural area)0800 (Stopped - Provider: Steffany Morris RN)0957 ([facility] Unhold - Provider: Admin Adt) 1436 ([facility] Hold - Provider: Admin Adt - Reason: Transfer to a Procedural area)1733 ([facility] Unhold - Provider: Admin Adt) 10 mcg/min (3 mL/hr), Intravenous, at 3 mL/hr, CONTINUOUS, Starting 02/13/19 at 1530, Until 02/17/19 at 1749, Initiate at 10 mcg/minute for pain not responsive to sublingual nitroGLYcerin and if S BP is 100 mmHG or greater. Increase dose 10 mcg/minute every 5 minutes if SBP is 100 mmHG or greater to maximum dose 100 mcg/minute. Titrate to pain 3/10 or less Hold for SBP less than 90 mmHG AND call provider, Routine sodium chloride 0.9% infusion 0758 ([facility] Hold - Provide r: Admin Adt - Reason: Transfer to a Procedural area)0957 ([facility] Unhold - Provider: Admin Adt) 1436 ([facility] Hold - Provider: Admin Adt - Reason: Transfer to a Procedural area)1733 ([facility] Unhold - Provider: Admin Adt) 50 mL/hr, at 50 mL/hr, Intravenous, CONT INUOUS, Starting 02/15/19 at 0000, Until Fri02/17/19 at 1749 sodium chloride 0.9% infusion () 1700 (New Bag - Provider: Daphne Linn, RN)1823 (Stopped - Provider: Delma Dotson RN - Comment: IV infiltrate) 100 mL/hr, at 100 mL/hr, Intravenous, CO NTINUOUS, Starting Tu02/16/19 at 1715, Until Fri02/16/19 at 2214, Recovery (Recovery-Hospital Unit) PRN Medication Order 02/15/2019 02/16/2019 02/17/2019 acetaminophen (TYLENOL) tablet 1,000 mg 0758 ([facility] Hold - Provider: Admin Adt - Reason: Transfer to a Procedural area)0957 ([facility] Unhold - Provider: Admin Adt) 1436 ([facility] Hold - Provider: Admin Adt - Reason: Transfer to a Procedural area)1733 ([facility] Unhold - Provider: Admin Adt) 1,000 mg, Oral, EVERY 6 HOURS PRN, Start ing 02/13/19 at 1657, Until 02/17/19 at 1749, Pain, Maximum dose of acetaminophen is 4000 mg from all sources in 24 hours., Routine albuterol (PROVENTIL) nebulizer solution 2.5 mg 0758 ( [facility] Hold - Provider: Admin Adt - Reason: Transfer to a Procedural area)0957 ([facility] Unhold - Provider: Admin Adt) 1436 ([facility] Hold - Provider: Admin Adt - R miguel angel: Transfer to a Procedural area)1733 ([facility] Unhold - Provider: Admin Adt) 2.5 mg, Nebulization, EVERY 4 HOURS PRN, Starting 02/13/19 at 1657, Until 02/17/19 at 1749, Wheezing, Routine fentaNYL 50 mcg/mL multi-dose injection (CANCELED) 081 1 (Given - Provider: Bryce Duggan)0839 (Given - Provider: Bryce Duggan) ONCE PRN, Starting Fri02/15/19 at 0811, Until Fri02/15/19 at 0913, Intra- Operative (Intra-Procedure), Routine fentaNYL 50 mcg/mL multi-dose injection (CANCELED) 1459 (Given - Provider: Igor Ho RN)1628 (Given - Provider: Natali Gao RN) ONCE PRN, Starting Fri02/16/19 at 1459, Until Fri02/16/19 at 1733, Intra- Operative (Intra-Procedure), Routine heparin (porcine) injection (CANCELED) 0822 (Given - P rovider: Bryce Duggan)0840 (Given - Provider: Bryce Duggan) ONCE PRN, Starting Fri02/15/19 at 0822, Until Fri02/15/19 at 0913, Cath (Intra- Procedure), Routine heparin (porcine) injection (CANCELED) 1 534 (Given - Provider: Natali Gao RN) ONCE PRN, Starting Fri02/16/19 at 1534, Until Fri02/16/19 at 1733, Cath (Intra- Procedure), Routine iohexol (OMNIPAQUE) 350 mg/mL solution (CANCELED) 0911 (Given - Provider: Mere Abbasi MD) ONCE PRN, Starting Fri02/15/19 at 0911, Until Fri02/15/19 at 0913, Cath (Intra- Procedure), Routine iohexol (OMNIPAQUE) 350 mg/mL solution (CANCELED) 1643 (Given - Provider: Mere Abbasi MD) ONCE PRN, Starting 02/16/19 at 1643, Until Tu02/16/19 at 1733, Cath (Intra- Procedure), Routine midazolam (PF) (VERSED) multi-dose injection (CANCELED ) 0811 (Given - Provider: Bryce Duggan)0839 (Given - Provider: Bryce Duggan) ONCE PRN, Starting Fri02/15/19 at 0811, Until Fri02/15/19 at 0913, Cath (Intra- Procedure), Routine midazolam (PF) (VERSED) multi-dose injection (CANCELED) 1459 (Given - Provider: Igor Ho, LONNIE)1628 (Given - Provider: Igor Ho, LONNIE) ONCE PRN, Starting 02/16/19 at 1459, Until Tu02/16/19 at 1733, Cath (Intra- Procedure), Routine nitroGLYcerin (NITROSTAT) SL tablet 0.4 mg 0758 ([facility] H old - Provider: Admin Adt - Reason: Transfer to a Procedural area)0957 ([facility] Unhold - Provider: Admin Adt) 1436 ([facility] Hold - Provider: Admin Adt - Reason: Transfer to a Procedural area)1733 ([facility] Unhold - Provider: Admin Adt) 0.4 mg, Sublingual, EVERY 5 MIN PRN, Sta rting 02/13/19 at 1704, Until 02/17/19 at 1749, Chest pain, May repeat every 5 minutes for a total of three doses. Notify provider if chest pain not relieve d with nitroglycerin. Do not administer nitroglycerin if the patient has received or taken phosphodiesterase (PDE-5) inhibitors such as sildenafil, tadalafil or vardenafil within the last 24 to 72 hours., Routine nitroGLYcerin 100 mcg/mL intracoronary dilution (CANCE LED) 0819 (Given - Provider: Diego Meade)0857 (Given - Provider: Diego Meade) ONCE PRN, Starting 02/15/19 at 0819, Until 02/15/19 at 0913, Cath (Intra- Procedure), Routine nitroGLYcerin 100 mcg/mL intracoronary dilution (CANCELED) 1531 (Given - Provider: Mere Abbasi MD)1554 (Given - Provider: Mere Abbasi MD) ONCE PRN, Starting 02/16/19 at 1531, Until Tu02/16/19 at 1733, Cath (Intra- Procedure), Routine sodium chloride 0.9% infusion (COMPLETED) 1541 (New Bag - Provider: Ruby Vital, LONNIE) CONTINUOUS PRN, Starting e 02/16/19 at 1541, Until Discontinued, Cath (Intra-Procedure) verapamil (ISOPTIN) injection (CANCELED) 0819 (Given - Provider: Diego Meade) ONCE PRN, Starting Fri02/15/19 at 0819, Until Fri02/15/19 at 0913, Administer over 2 Minutes, Cath (Intra-Procedure) verapamil (ISOPTIN) injection (CANCELED) 1531 (Given - Provider: Mere Abbasi MD) ONCE PRN, Starting Fri02/16/19 at 1531, Until Fri02/16/19 at 1733, Administer over 2 Minutes, Cath (Intra-Procedure) documented in this encounter Care Teams Communications Tower Technician Relationship Specialty Start Date End Date Quin Rojas MD PCP - General 04/03/[address] [place] [address] documented as of this encounter
--- OUTSIDE RECORDS SUMMARY | 2022-03-08 01:58 | XMS_ITS | Encounter Summary ---
:1945 [place] [address] Care Team Providers Name Role Phone Quin Rojas MD Primary Care Provider Encounter Details Date Type Department Care Team Description 02/16/2019 Notes Only Card[place] [facility] [place] Abbasi [place] [facility] [id number] CARDIOLOGY DEPT [phone] [place], [place] [address] (Wo rk) Social History Tobacco [...] documented as of this encounter Progress Notes Laura Abbasi MD - 02/16/2019 4:48 PM EDT Letter to referring documented in this encounter Plan of Treatment Upcoming Encounters Date Type Specialty Care Team Description 09/02/2022 Office Visit Cardiology Patrice Burkett MD [facility] [address] [place] [address] (Wo rk) 11/25/2022 Office Visit Dermatology Kole Mccain MD [address] [facility] [place], [place] [address] (Wo rk) documented as of this encounter Visit Diagnoses Not on filedocumented in this encounter Care Teams Silverware Buffer Relationship Specialty Start Date End Date Quin Rojas MD PCP - General 04/03/[address] [place], [place] [id number] documented as of this encounter
--- OUTSIDE RECORDS SUMMARY | 2022-03-08 01:58 | XMS_ITS | Encounter Summary ---
:1945 Author Organization [facility] Address [address] [place] [address] Care Team Providers Name Role Phone Quin Rojas MD Primary Care Provider Reason for Referral Consultation (Routine) - Specialty Diagnoses / Procedures Referred By Contact Refer red To Contact Cardiac Rehabilitation Diagnoses ASCVD (arteriosclerotic cardiovascular disease) John Hua MD [facility] [place] [address] Referral ID Status Reason Start Date Expiration Date Visits V isits Requested Authorized [id number] Consult, 02/17/2019 08/16/2019 36 36 Test & Treat Reason for Visit Auth/Cert Specialty Diagnoses / Procedures Referred By Contact Refer red To Contact Diagnoses Angina at rest [place] Referral ID Status Reason Start Date Expiration Date Visits Requ ested Visits Authorized [id number] 1 1 Encounter Details Date Type Department Care Team Description 02/13/2019 - Hospital Intermediate Cardiac John Hua ASCV D (arteriosclerotic cardiovascular disease); 02/17/2019 Encounter Care Unit Nilda JIMENEZ Essential hypertension; [facility] [place] [phone] Social History Tobacco Use Types Packs/Day Years [...] Sign Reading Time Taken Comments Blood Pressure 136/43 02/17/2019 11:56 AM EDT Pulse 54 02/17/2019 5:19 AM EDT Temperature 36.6 ??C (97.9 ??F) 02/17/2019 11:56 AM EDT Respiratory Rate 16 02/17/2019 11:56 AM EDT Oxygen Saturation 97% 02/17/2019 11:56 AM EDT Inhaled Oxygen Concentration - - Weight 68.5 kg (151 lb 0.2 oz) 02/17/2019 5:52 AM EDT Height 154.9 cm (5' 1) 02/13/2019 2:38 PM EDT Body Mass Index 28.53 02/13/2019 2:38 PM EDT documented in this encounter Discharge Summaries Kiley Buchanan, STENCIL MACHINE OPERATOR - 02/14/2019 1:45 PM EDT Images from the original note were not included. Discharge Summary Patient Name: Albina Thompson Patient Age: 73 y.o. Language: Slovenian Race: White Ethnicity: Not nor Admit date: [...] Galarza APRN Amanda King, APRN Cardiovascular Medicine [phone] Discharge Diagnoses (Hospital Problems) and Secondary Diagnoses (Chronic Problems): Active Hospital Problems Diagnosis ??? Angina at rest ??? Coronary atherosclerosis of nulato coronary artery ??? Essential hypertension ??? Hyperlipidemia Resolved Hospital Problems No resolved problems to display. Active Non-Hospital Problems Diagnosis ??? Hypothyroidism ??? Asthma ??? Posterior tibial tendon dysfunction ??? Ocular rosacea Operations/Major Procedures: Cardiac cath 02/16/19: final report pending ?? [facility] Operative Note ?? Patient Name:??Albina Thompson?:??[id number]?MR#:??[id number] ?? Case Date:??02/16/2019 ?? Surgeon:??Surgeon(s) and Role: [...] early complications. ?? Results discussed with referring plate painter apprentice??Dr Burkett and Dr Hua, and with the [...] 2004), hypertension, hyperlipidemia, hypothyroidism who presented to [facility] today complaining of chest pressure that awoke [...] pressure but not complete resolution. ?? At [place] she had a single negative troponin. ECG [...] angiography. The patient went to the cardiac asset availability leader for a diagnostic cath which showed multivessel [...] appointments: During 8am-5pm Friday through Friday call [phone] to speak with a nurse in the cardiology clinic All other times call [phone] and ask to speak to the band nailer secondary school teacher librarian. Driving: No driving for 48 hours after catheterization. Follow up Appointments: PCP Quin Rojas MD [phone] February 22, 2019 1:[address] Burkett March 17, 2019 at 11:30 arrival in [place] Future Appointments and Orders Future Appointments and Orders Future Appointments Provider Department Dept Phone 03/17/2019 11:40 AM Patrice Burkett MD Cardiology at [place] Arrive at: [facility] [address] [phone] Future Orders Complete By Expires Referral to Cardiac Rehab [[id number] Custom] As directed Process Instructions: If no progress note charted, please enter Clinical details in comments. Scheduling Instructions: Questions: My question or request is: Pt will participate in cardiac rehab @ [place] Discharge References/Attachments Marvin Buchanan APRN Cardiovascular Medicine 02/17/2019 documented in this encounter Discharge Instructions Discharge InstructionsKiley Buchanan APRN - 02/17/2019 12:35 PM EDT Call your doctor if: Chest pain, shortness of breath, pain or swelling in legs occurs. If you have non-emergent questions between now and the time of your follow up appointments: During 8am-5pm Friday through Friday call [phone] to speak with a nurse in the cardiology clinic All other times call [phone] and ask to speak to the band nailer secondary school teacher librarian. Driving: No driving for 48 hours after catheterization. Follow up Appointments: PCP Quin Rojas MD [phone] February 22, 2019 1:[address] Burkett March 17, 2019 at 11:30 arrival in [place] documented in this encounter Medications at Time of Discharge Medication Sig Dispensed Refills Start Date End Date VENTOLIN HFA 90 Inhale 2 puffs into 1 11/25/2018 mcg/actuation HFA the lungs 2 times Aerosol Inhaler daily as needed. fluticasone (FLONASE) 50 2 sprays by Each Nare 0 mcg/actuation [place], route nightly. Suspension cycloSPORINE (RESTASIS) 1 drop [...] Progress Note Patient Name: Albina Thompson Service: NEEDLE FELT MAKING MACHINE OPERATOR / PA Responsible Attending: John Hua MD Reason for continued hospitalization: Evaluation and management of accelerating angina Multivessel CAD - CT surgery consult S/p PCI to LAD and OM1, OM2 Active Problems: Active Hospital Problems Diagnosis ??? Angina at rest ??? Coronary atherosclerosis of nulato coronary artery 2005: 2 stents to mid LAD and stent to osteal D2 (bifurcation lesion) at [facility] 01/2018- ST II, HR 126, BP [...] and vitals reviewed. Lab Comments: Recent Labs 02/17/19 0341 02/16/19 0410 02/15/19 [...] procedures. Cardiac cath 02/16/19: final report pending [facility] Operative Note Patient Name: Albina Thompson : [id number] MR#: [id number] Case Date: 02/16/2019 Surgeon: Surgeon(s) and Role: * Mere Abbasi MD - Primary * Harley Borreor MD - Fellow Preoperative diagnosis: 2 v [...] evident early complications. Results discussed with referring plate painter apprentice Dr Burkett and Dr Hua, and with [...] the past 2 weeks. Ruled out for [place]. Was sent for cardiac catheterization and found [...] Crestor 40 mg x 1 given at [place], patient has been taking Crestor 2.5 mg at home Crestor 5 mg ordered, to uptitrate as tolerated TC 170, HDL 77, LDL 86, Trig 51 ?? Hypothyroidism TSH was normal at [place] Continue levothyroxine 75 mcg daily DVT prophylaxis: early ambulation CODE STATUS: FULL CODE Discussed with MD Kiley Galarza APRN Cardiovascular Medicine 02/17/2019 Associated attestation - John Hua MD - 02/17/2019 8:06 PM EDT Cardiology Attending Addendum I shared this visit with Kiley Buchanan APRN and guided the medical decision-making. Nikos Martin - 02/16/2019 4:14 PM EDT Narrative:Visited in response to request for Dental Chair Assembler services. Pt was awake, alert, oriented and [...] provided emotional, spiritual support and encouraging presence. Dental Chair Assembler services accepted.Conversation to build trusting relationship.Provided prayer.Provided pastoral presence.Provided reli gious/sacramental rite. Follow up:yes Time; 25 Mins Kiley Buchanan APRN - 02/16/2019 8:53 AM EDT Inpatient Cardiology Progress Note Patient Name: Albina Thompson Service: NEEDLE FELT MAKING MACHINE OPERATOR / PA Responsible Attending: John Hua MD Reason for continued hospitalization: Evaluation and management of accelerating angina Multivessel CAD - CT surgery consult Planned PCI today Active Problems: Active Hospital Problems Diagnosis ??? Angina at rest ??? Coronary atherosclerosis of nulato coronary artery 2005: 2 stents to mid LAD and stent to osteal D2 (bifurcation lesion) at [facility] 01/2018- ST II, HR 126, BP [...] ??? sodium chloride 0.9% 50 mL/hr (02/14/19 8869) ??? heparin (porcine) 900 Units/hr (02/14/19 1622) [...] and vitals reviewed. Lab Comments: Recent Labs 02/16/1940902/15/1944402/14/19 0644 WBC 9.8* 13.8* 7.1 HGB 11.2* 11.7 12.7 HCT 33.4* 33.5* 37.4 PLATELET 202 230 222 Recent Labs 02/13/19 1553 INR 1.1 Recent Labs 02/16/19 0410 02/15/195 02/14/19 0644 NA 143 142 140 K 3.6 3.9 3.9 CL 109* 108* 105 CO2 22 21* 21* BUN 23* 19* 14 CREATININE 0.54* 0.59* 0.59* Recent Labs 02/13/19 1553 AST 22 ALT 14 ALKPHOS 110* BILITOT 0.7 BILIDIR 0.2 Recent Labs 02/16/19 0410 02/15/19 0445 02/14/19 0644 CALCIUM 8.8 9.6 9.2 MAGNESIUM [...] the past 2 weeks. Ruled out for [place]. Was sent for cardiac catheterization and found [...] monitoring CT surgery consult appreciated NPO for LHC wit planned PCI today Cardiac rehab consult following ?? Hypertension Continue losartan, metoprolol BP: (117-198)/(28-107) ?? Hyperlipidemia Normal LFTs with minimal alk phos at 110 (ULN 105) Crestor 40 mg x 1 given at [place], patient has been taking Crestor 2.5 mg at home Crestor 5 mg ordered TC 170, HDL 77, LDL 86, Trig 51 ?? Hypothyroidism TSH was normal at [place] Continue levothyroxine 75 mcg daily DVT prophylaxis: [...] old woman with prior bifurcation stenting [place] [address] Wes Zuniga, whopresents with unstable [...] Dr Hua. I also engaged her general plate painter apprentice, Dr Brukett, who expressed a preference for PCI. If [...] Progress Note Patient Name: Albina Thompson Service: NEEDLE FELT MAKING MACHINE OPERATOR / PA Responsible Attending: John Hua MD Reason for continued hospitalization: Evaluation and management of accelerating angina S/p cardiac catheterization Multivessel CAD - CT surgery consult Active Problems: Active Hospital Problems Diagnosis ??? Angina at rest ??? Coronary atherosclerosis of nulato coronary artery 2005: 2 stents to mid LAD and stent to osteal D2 (bifurcation lesion) at [facility] 01/2018- ST II, HR 126, BP 203/72, CP, 1 mm inf and lat ST depressions, normal perfusion and wall notion Norvasc led to diarrhea, Imdur to dizziness/hypotension ??? Essential hypertension ??? Hyperlipidemia Resolved Hospital Problems No resolved problems to display. Interval History: Returned to floor from asset availability leader. Denies any current chest pain while resting in bed, but small levels of exertion can reproduce her symptoms. Spouse at the bedside. Review of Systems: Review of Systems Respiratory: Negative for shortness of breath. Cardiovascular: Positive for chest pain. All other systems reviewed and are negative. Telemetry: HR: 70-80s sinus rhythm, rare PACs, PVCs Meds: Scheduled Meds: ??? [MAR Hold] budesonide-formoterol 2 Inhalation Inhalation BID ??? [MAR Hold] aspirin 81 mg Oral Daily ??? [MAR Hold] cholecalciferol (Vitamin D3) 2,000 Units Oral BID ??? [MAR Hold] rosuvastatin 5 mg Oral QPM ??? [JUL Hold] cycloSPORINE 1 drop Both Eyes BID ??? [JUL Hold] fluticasone propionate 2 spray Each Nare Nightly ??? [MAR Hold] levothyroxine 75 mcg Oral QAM ??? [MAR Hold] losartan 50 mg Oral Daily ??? [MAR Hold] montelukast 10 mg Oral Nightly ??? [MAR Hold] ubiquinone (coenzyme Q10) 100 mg Oral Daily ??? [MAR Hold] famotidine 20 mg Oral BID ??? [MAR Hold] docusate sodium 100 mg Oral BID ??? [MAR Hold] metoprolol tartrate 12.5 mg Oral Q6H CAITLYN ??? [MAR Hold] ticagrelor 90 mg Oral BID ??? [...] disease. Cardiac cath 02/15/2019: final report pending [facility] Operative Note ?? Patient Name: Albina Thompson : [id number] MR#: [id number] ?? Case Date: 02/15/2019 ?? Surgeon: Surgeon(s) [...] the past 2 weeks. Ruled out for [place]. Was sent for cardiac catheterization today and [...] Crestor 40 mg x 1 given at [place], patient has been taking Crestor 2.5 mg at home Crestor 5 mg ordered TC 170, HDL 77, LDL 86, Trig 51 ?? Hypothyroidism TSH was normal at [place] Continue levothyroxine 75 mcg daily DVT prophylaxis: Heparin drip CODE STATUS: FULL CODE Discussed with MD iKley Galarza APRN Cardiovascular Medicine 02/15/2019 Associated attestation [...] Progress Note Patient Name: Albina Thompson Service: NEEDLE FELT MAKING MACHINE OPERATOR / PA Responsible Attending: John Hua MD Reason for continued hospitalization: Evaluation and management of accelerating angina Awaiting cardiac catherization Active Problems: Active Hospital Problems Diagnosis ??? Angina at rest ??? Coronary atherosclerosis of nulato coronary artery 2005: 2 stents to mid LAD and stent to osteal D2 (bifurcation lesion) at [facility] 01/2018- ST II, HR 126, BP [...] Infusions: ??? heparin (porcine) 900 Units/hr (02/14/19 0755) ??? nitroGLYcerin 20 mcg/min (02/14/19 0016) ??? sodium chloride 0.9% 50 mL/hr (02/13/19 8121) PRN Meds:heparin (porcine) AND heparin (porcine), acetaminophen, [...] the past 2 weeks. Ruled out for [place]. Continue IV heparin and IV nitroglycerin. Anticipate [...] Crestor 40 mg x 1 given at [place], patient has been taking Crestor 2.5 mg at home Crestor 5 mg ordered TC 170, HDL 77, LDL 86, Trig 51 ?? Hypothyroidism TSH was normal at [place] Continue levothyroxine 75 mcg daily Discussed with MD Rick Galarza APRN 02/14/2019 Associated attestation - John Hua MD - 02/14/2019 3:08 PM EDT Cardiology Attending Addendum I shared this visit with Rick Mehta APRN, and guided the medical decision-making. Kole Tom RN - 02/13/2019 2:57 PM EDT Patient arrived from [facility] no complaints of pain and no shortness of breath. Patient elizabeth heparin drip at 800 unit per hour. Telemetry initiated plus call douglas. documented in this encounter H&P Notes Rick Mehta, STENCIL MACHINE OPERATOR - 02/13/2019 3:53 PM EDT Images from the original note were not included. Cardiology Admission H&P Patient Name: Albina Thompson Date of : 1945 Age: 73 y.o. Hospital Admit Date: 02/13/2019 Inpatient Attending: John Hua MD PCP: Quin Rojas MD Presenting Diagnosis/Chief Complaint: Rest anginal symptoms Active Problem List: Active Hospital Problems Diagnosis ??? Angina at rest ??? Coronary atherosclerosis of nulato coronary artery 2005: 2 stents to mid LAD and stent to osteal D2 (bifurcation lesion) at [facility] 01/2018- ST II, HR 126, BP [...] 2004), hypertension, hyperlipidemia, hypothyroidism who presented to [facility] today complaining of chest pressure that awoke [...] chest pressure but not complete resolution. At [place] she had a single negative troponin. ECG with PACs. Ticagrelor 180 mg x1, crestor 40 mg x 1 and aspirin 324 mg x 1 were administered. IV heparin was started. She arrives with 6-7/10 chest pressure substernally. Past Medical History: Past Medical History: Diagnosis Date ??? Asthma 12/05/2017 ??? Coronary atherosclerosis of nulato coronary artery 12/05/2017 ??? Essential hypertension 12/05/2017 ??? Hyperlipidemia 12/05/2017 ??? Hypothyroidism 12/05/2017 Surgical History/Problems: No past surgical history on file. Significant Family History: Family History Problem Relation Age of Onset ??? Hypertension Mother ??? Asthma Mother ??? Hypertension Father ??? Heart Disease Father ??? Hyperlipidemia Father ??? Myocardial Infarction Father [place] at age 40 and at age 60 ??? Heart Disease Sister ??? Heart Disease Brother [place] at 48 ??? Hypertension Brother ??? Hypertension [...] on file Occupational History ??? 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 [...] file Gets together: Not on file Attends hindu service: Not on file Active member of [...] file Social History Narrative Lives with in [place], [place]. Has 6 children (2 sets of twins-one fraternal and one set identical). 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 REVIEW OF SYSTEMS: Review of Systems Constitutional: [...] daily. Taking ??? fluticasone (FLONASE) 50 mcg/actuation [place], Suspension 2 sprays by Each Nare route [...] Ref Range Heparin UFH Level 0.22 IU/mL [facility] 02/13/19 WBC 6.1 Hgb 12.9 Hct [...] Crestor 40 mg x 1 given at [place], patient has been taking Crestor 2.5 mg at home Add on fasting lipid profile Hypothyroidism TSH was normal at [place] today Continue levothyroxine 75 mcg daily Discussed with John Hua MD Provider: RICK MEHTA APRN Provider #: [id number] 02/13/2019 Associated attestation - John Hua MD [...] in the outpatient cardiac rehabilitation program at [place] was discussed. Patient agrees to a referral [...] vent bigem rhythm. When she returned to [facility], the throat fullness disappeared. Md aware Plan of Care - Alesha Gottlieb RN - 02/17/2019 4:18 AM EDT Problem: Patient Care Overview Goal: Plan of Care Review 02/14/19 0227 02/16/191999 Coping/Psychosocial Plan Of Care Reviewed With -- [...] OUTCOME EVALUATION: Goal: Fall Prevention-Safe Patient Handling 02/16/1917 02/16/191999 Daily Care Interventions Self-Care Promotion independence encouraged [...] Abbasi MD - 02/16/2019 4:45 PM EDT [facility] Operative Note Patient Name: Albina Thompson : [id number] MR#: [id number] Case Date: 02/16/2019 Surgeon: Surgeon(s) and Role: * Mere Abbais MD - Primary * Harley Borrero MD [...] evident early complications. Results discussed with referring plate painter apprentice Dr Burkett and Dr Hua, and with the patient and their family. A time-out was conducted prior to the start of the procedure to verify the correct patient and procedure, procedure location, and all relevant critical information. Full report to follow. MERE ABBASI MD Plan of Care - Alesha Gottlieb, RN - 02/16/2019 4:29 AM EDT Problem: Patient Care Overview Goal: Plan of Care Review 02/14/1922602/15/191999 Coping/Psychosocial Plan Of Care Reviewed With -- [...] LAD stent x2, ostial D2 stent x1, 2004 at [facility]), HTN, HLD, asthma on multiple inhalers, hypothyroid, [...] her from sleep and she presented to [place] ED, troponin negative, given ticagrelor 180mg x 1, started hep gtt, and transferred to [facility]. TTE 02/14 - EF 72%, no WMAs, no valvular disease Cath 02/15 - report pending EKG 02/15 - NSR 60s Cr - 0.59 LFTs - WNL Ticagrelor: 02/13: 180mg in AM ([place]), 90mg in PM ([facility]) 02/14: 90mg in AM, 90mg in PM [...] stent to osteal D2 (bifurcation lesion) at [facility] 01/2018- ST II, HR 126, BP 203/72, CP, 1 mm inf and lat ST depressions, normal perfusion and wall notion Norvasc led to diarrhea, Imdur to dizziness/hypotension ??? Asthma ??? Hyperlipidemia ??? Posterior tibial tendon dysfunction ??? Ocular rosacea Past Medical History: Past Medical History: Diagnosis Date ??? Asthma 12/05/2017 ??? Coronary atherosclerosis of nulato coronary artery 12/05/2017 ??? Essential hypertension 12/05/2017 [...] History Social History Narrative Lives with in [place], [place]. Has 6 children (2 sets of twins-one fraternal and one set identical). 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 Has 6 children (her last 2 pregnancies were both sets of twins)-- 5 of which live nearby and the 6th lives in [place]. Has 10 grandchildren Smoking - never smoker ETOH - denies Illicit drug use - denies Faith - denies Family History: Family History Problem Relation Age of Onset ??? Hypertension Mother ??? Asthma Mother ??? Hypertension Father ??? Heart Disease Father ??? Hyperlipidemia Father ??? Myocardial Infarction Father [place] at age 40 and at age 60 ??? Heart Disease Sister ??? Heart Disease Brother [place] at 48 ??? Hypertension Brother ??? Hypertension [...] daily. Taking ??? fluticasone (FLONASE) 50 mcg/actuation [place], Suspension 2 sprays by Each Nare route [...] LAD stent x2, ostial D2 stent x1, 2004 at [facility]), HTN, HLD, asthma on multiple inhalers, hypothyroid, [...] Surgery Attending History and physical as per Lisandra Peña PA-C Briefly, 73 year-old woman with UA underwent LHC today showing multi-vessel CAD on the diagonal, circumflex, and LAD. Met with patient and Dr. Abbasi. Patient has strong preference for PCI. Risks and benefits of CABG vs. PCI discussed with patient. JONG TORRES MD Initial Assessments - Pierce Randall RN - 02/15/2019 11:56 AM EDT Office [...] ??? Asthma 12/05/2017 ??? Coronary atherosclerosis of nulato coronary artery 12/05/2017 ??? Essential hypertension 12/05/2017 [...] Health/Prescription Coverage: Primary Insurance: MEDICARE Secondary Insurance: [place] [facility] Prescription Coverage: yes Preferred Pharmacy: [place], [place] Primary Care Provider: Quin Rojas MD [phone] Patient/Caregiver Goals of Treatment: to return home. Potential Needs for Transition of Care: Rehab/SNF: n/a Home Health: TBD after surgery consult DME: n/a Dialysis: n/a Community Resources: n/a Transportation: her spouse by car Anticipated Barriers to Discharge/Special Considerations: none if surgery happens will need Home Health Assessment: Ruled out for [place]. Was sent for cardiac catheterization today and [...] assist with transition of care planning. Pierce Randall, RN Pager: [phone] Op Note - Mere Abbasi MD - 02/15/2019 9:17 AM EDT [facility] Operative Note Patient Name: Albina Thompson : [id number] MR#: [id number] Case Date: 02/15/2019 Surgeon: Surgeon(s) and Role: [...] evident early complications. Results discussed with service plate painter apprentice Dr Hua and with the patient and [...] were not included. Infiltration/Extravasation Scale Albina Thompson [id number]/457-B Infiltration appearance: Infiltration harm % for [...] of infiltration/extravasation Name of MD contacted Beeper 1552 4:55 AM Name of RN contacted LONNIE Salcido 4:55 AM Name of Pharmacist if consulted no 4:55 AM Plastics Provider contacted: no 4:55 AM Name of Plastics MD (if consulted) PHOTO TO BE ADDED HERE (Mandatory photo for infiltrations/ extravasations scoring a stage 2 or greater, but recommended forstage 1. Include measuring tape and identifier in the photo) INFORMATICS SPEC CARING FOR THIS PATIENT WILL CONTINUE TO [...] further details. RICK MEHTA APRN 02/14/2019 Pager [phone] Plan of Care - Kole Tom RN - 02/14/2019 2:22 PM EDT Problem: Patient Care Overview Goal: Plan of Care Review Outcome: Ongoing (Interventions Implemented as Appropriate) 02/14/19226 Coping/Psychosocial Plan Of Care Reviewed With patient Plan of Care Review Progress progress towards functional goals is fair OUTCOME EVALUATION NOTE: OUTCOME SUMMARY: Patient cont on a heparin and nitro drip waiting to go to the asset availability leader. Patient appears comfortable but when asked, states [...] 09/02/2022 Office Visit Cardiology Patrice Burkett MD [facility] [place], [place] [address] (Wo rk) 11/25/2022 Office Visit Dermatology Kole Mccain MD [address] [facility] DERMATOLOGY [place], [place] [address] (Wo rk) Scheduled Referrals [...] (Bezet) Calculated P 64 degrees MUSE [facility] [place] Calculated R 36 degrees [facility]USE [facility] [place] Calculated T 61 degrees MUSE SYSTEM [place] INTERPRETATION Normal sinus rhythm MUSE SYSTEM Normal ECG When compared with ECG of 17-MAY-2019 11:28, Premature supraventricular complexes are no longer Present Nonspecific T wave abnormality no longer evident in Lateral leads Confirmed by MD Burkett Daniel ([id number]) on 10/20/2019 3:48:37 PM Specimen Anatomical Collection Method Collection Time Receive d Time (Source) Location / / Volume Laterality 10/20/2019 1:30 PM 0 3:48 EDT PM EDT Rick Mehta APRN ECG ORDERABLES Performing Organization Address [facility]/ZIP Code Phon e Number MUSE SYSTEM EKG [...] 388 ms MUSE SYSTEM (Bezet) Calculated P [place] 42 degrees MUSE SYSTEM Calculated R [place] 32 degrees MUSE SYSTEM Calculated T [place] 50 degrees MUSE SYSTEM INTERPRETATION Sinus bradycardia MUSE SY STEM Otherwise normal ECG When compared with ECG of 16-FEB-2019 17:09, No significant change was found Confirmed by MD Jake, Diego ([id number]) on 02/17/2019 11:56:37 AM Specimen Anatomical Collection Method Collection Time Receive d Time (Source) Location / / Volume Laterality 02/17/2019 7:20 AM 9 EDT 11:56 AM EDT Rick Mehta APRN ECG ORDERABLES Performing Organization Address [facility] Phon e Number MUSE SYSTEM Differential, Automated (02/17/2019 3:41 AM EDT) P athologist Signature Neutrophils % 65.1 % [facility] LABORATORY Neutr Abs (ANC) 4.66 1.70 - [facility] 6.10 [facility] x10(3)/[facility] LABORATORY Lymphocytes % 22.7 % [facility] LABOR[facility]ORY Lymphocytes Abs 1.6 0.9 - 3.2 [facility] x10(3)/[facility] LABORATORY Monocytes % 9.0 % [facility] LABOR[facility]ORY Monocyte Abs 0.6 0.3 - 0.9 [facility] x10(3)/[facility] LABORATORY Eosinophils % 2.8 % [facility] LABORATORY Eosinophils Abs 0.2 0.0 - 0.4 [facility] x10(3)/[facility] LABORATORY Basophils % 0.1 % [facility] LABORATORY Basophils Abs 0.0 0.0 - 0.1 [facility] x10(3)/[facility] LABORATORY Immature Gran % 0.30 % [facility] LABORATORY Comment: Immature granulocytes(IG's)percentage an d absolute count will include metamyelocytes, myelocytes, and promyelo cytes. Blood smears from CBCs yielding IG's will be scanned manually for concor danchristopher. If this scan disagrees with the automated IG or if promyelocytes are not ed, a manual differential will be performed. Edith Gran Abs 0.02 0.00 - 0.04 x10(3)/[facility] LABORATORY Specimen Anatomical Collection Method Collection Time Receive d Time (Source) Location / / Volume Laterality Blood specimen 02/17/2019 3:41 AM 019 3:56 (specimen) EDT AM EDT Resulting Agency Comment Spec In Lab Rick Mehta APRN HEMATOLOGY ORDERABLES Performing Organization Address City/State/ZIP Code Phon e Number [place] [id number]ORY [address] (ABNORMAL) Hemogram (02/17/2019 3:41 AM EDT) Analysis Performed At Patho logist Time Signature WBC 7.2 4.0 - 9.5 [facility] x10(3)/[facility] LABORATORY RBC 3.77 (L) 4.00 - [facility] 5.21 [facility] x10(6)/[facility] LABORATORY Hemoglobin 11.5 (L) 11.7 - [facility] 15.5 gm/dL [facility] LAB[facility]ATORY Hematocrit 33.5 (L) 35.7 - [facility] 45.8 % [facility] LAB[facility]AT[facility] MCV 88.9 82.6 - [facility] 94.4 [facility] LABORATORY MCH 30.5 27.1 - [facility] 32.0 pg [facility] LAB[facility]ATORY MCHC 34.3 31.7 - [facility] 35.0 gm/dL [facility] LAB[facility] Platelets 176 145 - 357 [facility] x10(3)/[facility] LABORATORY RDWSD 45.1 37.0 - [facility] 46.0 [facility] LABORATORY RDWCV 13.9 11.5 - [facility] 14.1 % [facility] LABORATORY MPV 9.9 7.6 - 12.9 [facility] LABORATORY nRBC % Auto 0.0 % [facility] LABORATORY nRBC Abs Auto 0.000 0.000 - NILDA FERRO 0.000 [facility] x10(3)/[facility] LABORATORY Specimen Anatomical Collection Method Collection Time Receive d Time (Source) Location / / Volume Laterality Blood specimen 02/17/2019 3:41 AM 019 3:56 (specimen) EDT AM EDT Resulting Agency Comment Spec In Lab Rick Mehta LILIYA HEMATOLOGY ORDERABLES Performing Organization Address City/State/ZIP Code Phon e Number [address] Magnesium (02/17/2019 3:41 AM EDT) P athologist Signature Magnesium 0.86 0.69 - 1.07 [facility] mmol/L [facility] LABORATORY Specimen Anatomical Collection Method Collection Time Receive d Time (Source) Location / / Volume Laterality Blood specimen 02/17/2019 3:41 AM 019 3:56 (specimen) EDT AM EDT Resulting Agency Comment Spec In Lab Rick Mehta STENCIL MACHINE OPERATOR CHEMISTRY ORDERABLES Performing Organization Address City/State/ZIP Code Phon e Number [address] (ABNORMAL) BMP w/fasting Glucose (02/17/2019 3:41 AM EDT) P athologist Signature Glucose 96 65 - 99 [facility] Fasting mg/dL [facility] LAB[facility] Comment: ?Fasting* Glucose Interpretive C [...] of Diabetes Mellitus, Position Statement from the [employer]. ??Diabete s Care, Volume 33, Supplement 1, May 2009 BUN 18 8 - 18 mg/dL [facility] LABORATORY Creatinine 0.60 (L) 0.70 - 1.20 mg/dL [facility] LABORATORY Sodium 142 135 - 145 mmol/L [facility] LABORATORY Potassium 4.0 3.5 - 5.0 mmol/L [facility] LABORATORY Comment: Please note: ??Patients with WBC >100,00 0 may have falsely elevated Potassium levels. ??For accurate Potassium quantif ication in these patients send serum separator tube (gold top) for subsequent determinations. ??Contact the Clinical Chemistry Laboratory if there are any qu estions. Chloride 108 (H) 98 - 107 mmol/L [facility] LABORATORY CO2 24 22 - 31 mmol/L [facility] LABOR[facility] Anion Gap 10 5 - 15 mmol/L [facility] LABORATORY Calcium 8.5 8.5 - 10.5 mg/dL [facility] LABORATORY Estimated GFR 89 >=60 mL/min/1.73 m?? [facility] LAB[facility] Comment: The eGFR was calculated using the CKD-EP I equation. As with all creatinine based estimates of kidney function, eGFR values calculated with the CKD-EPI equation are not accurate in patients wi th acute kidney failure, extremes of body mass or the acutely ill. [email or web address]f eGFR 103 >=60 mL/min/1.73 m?? [facility] LABOR[facility] Comment: The eGFR was calculated using the CKD-EP I equation. As with all creatinine based estimates of kidney function, eGFR values calculated with the CKD-EPI equation are not accurate in patients wi th acute kidney failure, extremes of body mass or the acutely ill. [email or web address] Specimen Anatomical Collection Method Collection Time Receive d Time (Source) Location / / Volume Laterality Blood specimen 02/17/2019 3:41 AM 019 3:56 (specimen) EDT AM EDT Resulting Agency Comment Spec In Lab Rick Mehta APRN CHEMISTRY ORDERABLES Performing Organization Address City/State/[place] [address] EKG 12 Lead (02/16/2019 5:09 PM EDT) Component Value Ref Range Test Analysis Performed Pathologis t Method Time At Signature Ventricular rate 62 BPM MUSE SYSTEM Atrial Rate 62 BPM MUSE SYSTEM P-R Interval 166 ms MUSE SYSTEM QRS Duration 84 ms MUSE SYSTEM Q-T Interval 400 ms MUSE SYSTEM QTC Calculated 406 ms MUSE SYSTEM (Bezet) Calculated P [place] 46 degrees MUSE SYSTEM Calculated R [place] 51 degrees MUSE SYSTEM Calculated T [place] 62 degrees MUSE SYSTEM INTERPRETATION Normal sinus [...] Laterality Volume Narrative 02/17/2019 7:44 AM EDT ?[facility] ? Cardiac Cathete rization/Intervention Report ? Patient Name: Hemond, Albina R. ? Procedure Date: 02/16/2019 ? A #: [id number] ? Primary Physician: Coylewrgillian, Mere J ? Case #: [id number] ? File Name: [id number] ? Catheterization Order Number: [id number] ? [facility] ? Final Report [place], [place] ? Patient Name: ? Albina R. Hemo nd ? ID#: ?[id number] ? : ?1945 ? Procedure Date: ? February 16, 2019 ?Case #: ? [id number] ? Room: ? 6 ? Case Physician: ? Mere french M.D. ?Start: ?15:29 ?Fellow: ? Harley Borrero M.D. ?Admission: ??02/13/2019 ? Discharge: ??02/17/2019 ? Referring [...] procedure was Urgent. The indication for ?the asset availability leader visit is new onset angina less than [...] to the ACC/AHA classification ? system, this kyler mcdowell was a type B2 moderate risk lesion. [...] 6 Fr. EBU 3.5 ? guide. ??The kyler mcdowell was predilated with a 2.50mm NC EUPHORA [...] dose administered prior to arrival in the asset availability leader. ?Recommend continuing ticagrelor 90 mg PO twice [...] be considered. ?The attending physician was khai ang for the entire procedure. ?Dr. Mere Abbasi M.D. was present during the moderate sedation ?intraservice time as documented by the sedation nurse. ??Case time = 01:09. ?Dr. Mere Abbasi M.D. perf ormed the stent insertion-coronary, ?coronary angiography and angioplas ty-coronary. ? Mere J Coylewright, ? M.D. ? Electronically Signed by: Mere J Coylew right, M.D. ? Report Finalized: 02/17/2019 ??13:52 ? Report Last Ammended: 05/27/2019 ??13:30 ? Procedure Note Mere Abbasi MD - 05/27/2019For matting of this note might be different from the original. [facility] Cardiac Catheterization/Intervention Re port Patient Name: Albina Thompson Procedure Date: 02/16/2019 A #: [id number] Primary Physician: Mere Abbasi Case #: [id number] File Name: [id number] Catheterization Order Number: [id number] [facility] Final Report [place], [place] Patient Name: Albina Thompson ID#: [...] was designated as ASA Class III. The [facility] clinical frailty scale is 4: Vulnerable. Diagnostic [...] e was Urgent. The indication for the asset availability leader visit is new onset angina less than [...] administered prior t o arrival in the asset availability leader. Recommend continuing ticagrelor 90 mg P O [...] performed the stent insertion-coronary, coronary angiography and angioplasty-[facility]. Mere Abbasi M.D. Electronically Signed by: Mere cortez M.D. Report Finalized: 02/17/2019 13:52 Report Last Ammended: 05/27/2019 13:30 Kiley Carter King LILIYA CARDIAC CATH ORDERABLES EKG 12 Lead (02/16/2019 6:40 AM EDT) Component Value Ref Range Test Analysis Performed Pathologis t Method Time At Signature Ventricular rate 65 BPM MUSE SYSTEM Atrial Rate 65 BPM MUSE SYSTEM P-R Interval 172 ms MUSE SYSTEM QRS Duration 96 ms MUSE SYSTEM Q-T Interval 384 ms MUSE SYSTEM QTC Calculated 399 ms MUSE SYSTEM (Bezet) Calculated P [place] 58 degrees MUSE SYSTEM Calculated R [place] 43 degrees MUSE SYSTEM Calculated T [place] 52 degrees MUSE SYSTEM INTERPRETATION Normal sinus rhythm MUSE SYSTEM Normal ECG When compared with ECG of 15-FEB-2019 07:01, No significant change was found Confirmed by MD Elroy, Mere ([id number]) on 02/16/2019 7:3 9:42 PM Specimen Anatomical Collection Method Collection Time Receive d Time (Source) Location / / Volume Laterality 02/16/2019 6:40 AM 9 7:39 EDT PM EDT Rick Mehta APRN ECG ORDERABLES Performing Organization Address City/State/ZIP Code Phon e Number MUSE SYSTEM (ABNORMAL) Differential, Automated (02/16/2019 4:10 AM EDT) Patholo gist Method Time Signature Neutrophils % 73.9 % [facility] LABORATORY Neutr Abs (ANC) 7.23 (H) 1.70 - [facility] 6.10 [facility] x10(3)/[facility] LABORATORY Lymphocytes % 17.2 % [facility] LABORATORY Lymphocytes Abs 1.7 0.9 - 3.2 [facility] x10(3)/[facility] LABORATORY Monocytes % 8.0 % [facility] LABORATORY Monocyte Abs 0.8 0.3 - 0.9 [facility] x10(3)/[facility] LABORATORY Eosinophils % 0.4 % [facility] LABORATORY Eosinophils Abs 0.0 0.0 - 0.4 [facility] x10(3)/[facility] LABORATORY Basophils % 0.1 % [facility] LABORATORY Basophils Abs 0.0 0.0 - 0.1 [facility] x10(3)/[facility] LABORATORY Immature Gran % 0.40 % [facility] LABORATORY Comment: Immature granulocytes(IG's)percentage an d absolute count will include metamyelocytes, myelocytes, and promyelo cytes. Blood smears from CBCs yielding IG's will be scanned manually for conclizzy danchristopher. If this scan disagrees with the automated IG or if promyelocytes are not ed, a manual differential will be performed. Edith Gran Abs 0.04 0.00 - 0.04 x10(3)/[facility] LABORATORY Specimen Anatomical Collection Method Collection Time Receive d Time (Source) Location / / Volume Laterality Blood specimen 02/16/2019 4:10 AM 019 4:16 (specimen) EDT AM EDT Resulting Agency Comment Spec In Lab Rick Mehta APRN HEMATOLOGY ORDERABLES Performing Organization Address City/State/[place] [address] (ABNORMAL) Hemogram (02/16/2019 4:10 AM EDT) Analysis Performed At Patho logist Time Signature WBC 9.8 (H) 4.0 - 9.5 [facility] x10(3)/[facility] LABORATORY RBC 3.70 (L) 4.00 - [facility] 5.21 [facility] x10(6)/[facility] LABORATORY Hemoglobin 11.2 (L) 11.7 - [facility] 15.5 gm/dL [facility] LABORATORY Hematocrit 33.4 (L) 35.7 - [facility] 45.8 % [facility] LAB[facility]ATORY MCV 90.3 82.6 - [facility] 94.4 [facility] LABORATORY MCH 30.3 27.1 - [facility] 32.0 pg [facility] LABORATORY MCHC 33.5 31.7 - [facility] 35.0 gm/dL [facility] LABORATORY Platelets 202 145 - 357 [facility] x10(3)/[facility] LABORATORY RDWSD 45.2 37.0 - [facility] 46.0 [facility] LABORATORY RDWCV 13.7 11.5 - [facility] 14.1 % [facility] LABORATORY MPV 9.6 7.6 - 12.9 [facility] LABORATORY nRBC % Auto 0.0 % [facility] LABORATORY nRBC Abs Auto 0.000 0.000 - [place] 0.000 [facility] x10(3)/[facility] LABORATORY Specimen Anatomical Collection Method Collection Time Receive d Time (Source) Location / / Volume Laterality Blood specimen 02/16/2019 4:10 AM 019 4:16 (specimen) EDT AM EDT Resulting Agency Comment Spec In Lab Rick Mehta LILIYA HEMATOLOGY ORDERABLES Performing Organization Address City/State/ZIP Code Phon e Number [address] Magnesium (02/16/2019 4:10 AM EDT) P athologist Signature Magnesium 0.87 0.69 - 1.07 [facility] mmol/L [facility] LABORATORY Specimen Anatomical Collection Method Collection Time Receive d Time (Source) Location / / Volume Laterality Blood specimen 02/16/2019 4:10 AM 019 4:16 (specimen) EDT AM EDT Resulting Agency Comment Spec In Lab Rick Mehta STENCIL MACHINE OPERATOR CHEMISTRY ORDERABLES Performing Organization Address City/State/ZIP Code Phon e Number [address] (ABNORMAL) BMP w/fasting Glucose (02/16/2019 4:10 AM EDT) P athologist Signature Glucose 124 (H) 65 - 99 [facility] Fasting mg/dL [facility] LABORATORY Comment: ?Fasting* Glucose Interpretive C [...] of Diabetes Mellitus, Position Statement from the [employer]. ??Diabete s Care, Volume 33, Supplement 1, May 2009 BUN 23 (H) 8 - 18 mg/dL [facility] LABORATORY Creatinine 0.54 (L) 0.70 - 1.20 mg/dL [facility] LABORATORY Sodium 143 135 - 145 mmol/L [facility] LABORATORY Potassium 3.6 3.5 - 5.0 mmol/L [facility] LABORATORY Comment: Please note: ??Patients with WBC >100,00 0 may have falsely elevated Potassium levels. ??For accurate Potassium quantif ication in these patients send serum separator tube (gold top) for subsequent determinations. ??Contact the Clinical Chemistry Laboratory if there are any qu estions. Chloride 109 (H) 98 - 107 mmol/L [facility] LABORATORY CO2 22 22 - 31 mmol/L [facility] LABORATORY Anion Gap 12 5 - 15 mmol/L [facility] LABORATORY Calcium 8.8 8.5 - 10.5 mg/dL [facility] LABORATORY Estimated GFR 92 >=60 mL/min/1.73 m?? [facility] LABOR[facility]ORY Comment: The eGFR was calculated using the CKD-EP I equation. As with all creatinine based estimates of kidney function, eGFR values calculated with the CKD-EPI equation are not accurate in patients wi th acute kidney failure, extremes of body mass or the acutely ill. [email or web address] eGFR 107 >=60 mL/min/1.73 m?? [facility] LABORATORY Comment: The eGFR was calculated using the CKD-EP I equation. As with all creatinine based estimates of kidney function, eGFR values calculated with the CKD-EPI equation are not accurate in patients wi th acute kidney failure, extremes of body mass or the acutely ill. [email or web address] Specimen Anatomical Collection Method Collection Time Receive d Time (Source) Location / / Volume Laterality Blood specimen 02/16/2019 4:10 AM 019 4:16 (specimen) EDT AM EDT Resulting Agency Comment Spec In Lab Rick Mehta APRN CHEMISTRY ORDERABLES Performing Organization Address City/State/ZIP Code Phon e Number [facility] [place] [address] CARDIAC CATHETERIZATION (02/15/2019 9:20 AM EDT) Anatomical Region Laterality Modality Other Specimen (Source) Anatomical Location Collection Method / Collectio n Time Received Time / Laterality Volume Narrative 02/18/2019 11:59 AM EDT ?[facility] ? Cardiac Cathete rization/Intervention Report ? Patient Name: Hemond, Albina R. ? Procedure Date: 02/15/2019 ? A #: [id number] ? Primary Physician: Mere Abbasi ? Case #: [id number] ? File Name: [id number] ? Catheterization Order Number: [id number] ? [facility] ? Final Report [place], [place] ? Patient Name: ? Albina R. Hemo nd ? ID#: ?[id number] ? : ?1945 ? Procedure Date: ? February 15, 2019 ?Case #: ? [id number] ? Room: ? 5 ? Case Physician: [...] procedure was Urgent. The indication for ?the asset availability leader visit is ACS great er than 24 [...] 4 year mortality). ?The attending physician was presen t for the entire procedure. ?Dr. Mere [...] note might be different from the original. [facility] Cardiac Catheterization/Intervention Re port Patient Name: Albina Thompson Procedure Date: 02/15/2019 A #: [id number] Primary Physician: Mere Abbasi Case #: [id number] File Name: [id number] Catheterization Order Number: [id number] [facility] Final [facility] [place], [place] Patient Name: Albina Thompson ID#: [id number] : 1945 Procedure Date: February 15, 2019 Case #: [id number] Room: 5 Case Physician: Jeanna Nicole Start: 08:19 Fellow: Diego Meade M.D. Admissmikael n: 02/13/2019 Discharge: 02/17/2019 Referring Physician: Quin [...] was designated as ASA Class III. The [facility] clinical frailty scale is 4: Vulnerable. Diagnostic Tests: Prior Coronary Angiography: LV ejection fraction within 6 months is 61%. Electrocardiography: EKG was assessed by ECG. EKG was Abnorm al. EKG showed ST Deviation >= 0.5 mm. Medications Prior to Procedure: ASA, Beta Renan and Statin. Indications for Diagnostic Cath: The priority of the diagnostic procedur e was Urgent. The indication for the asset availability leader visit is ACS greater than 24 hrs. [...] LCX) * Recommend shared decision making appr oac for PCI v CABG. We will meet [...] 417 ms MUSE SYSTEM (Bezet) Calculated P [place] 41 degrees MUSE SYSTEM Calculated R [place] 32 degrees MUSE SYSTEM Calculated T [place] 60 degrees MUSE SYSTEM INTERPRETATION Normal sinus rhythm MUSE SYSTEM Normal ECG When compared with ECG of 14-FEB-2019 06:29, No significant change was found Confirmed by MD Abbasi Megan ([id number]) on 02/15/2019 8:0 4:20 PM Specimen Anatomical Collection Method Collection Time Receive d Time (Source) Location / / Volume Laterality 02/15/2019 7:01 AM 9 8:04 EDT PM EDT Rick Mehta APRN ECG ORDERABLES Performing Organization Address City/State/ZIP Code Phon e Number MUSE SYSTEM (ABNORMAL) Differential, Automated (02/15/2019 4:45 AM EDT) Patholo gist Method Time Signature Neutrophils % 93.4 % [facility] LABORATORY Neutr Abs (ANC) 12.91 (H) 1.70 - [facility] 6.10 [facility] x10(3)/[facility] LABORATORY Lymphocytes % 4.5 % [facility] LABORATORY Lymphocytes Abs 0.6 (L) 0.9 - 3.2 [facility] x10(3)/[facility] LABORATORY Monocytes % 1.7 % [facility] LABORATORY Monocyte Abs 0.2 (L) 0.3 - 0.9 [facility] x10(3)/[facility] LABORATORY Eosinophils % 0.0 % [facility] LABORATORY Eosinophils Abs 0.0 0.0 - 0.4 [facility] x10(3)/[facility] LABORATORY Basophils % 0.1 % [facility] LABORATORY Basophils Abs 0.0 0.0 - 0.1 [facility] x10(3)/[facility] LABORATORY Immature Gran % 0.30 % [facility] LABORATORY Comment: Immature granulocytes(IG's)percentage an d absolute count will include metamyelocytes, myelocytes, and promyelo cytes. Blood smears from CBCs yielding IG's will be scanned manually for concor dance. If this scan disagrees with the automated IG or if promyelocytes are not ed, a manual differential will be performed. Edith Gran Abs 0.04 0.00 - 0.04 x10(3)/[facility] LABORATORY Specimen Anatomical Collection Method Collection Time Receive d Time (Source) Location / / Volume Laterality Blood specimen 02/15/2019 4:45 AM 019 4:56 (specimen) EDT AM EDT Resulting Agency Comment Spec In Lab Rick Mehta APRN HEMATOLOGY ORDERABLES Performing Organization Address City/State/[place] [address] (ABNORMAL) Hemogram (02/15/2019 4:45 AM EDT) Analysis Performed At [facility] logist Time Signature WBC 13.8 (H) 4.0 - 9.5 [facility] x10(3)/[facility] LABORATORY RBC 3.80 (L) 4.00 - [facility] 5.21 [facility] x10(6)/[facility] LABORATORY Hemoglobin 11.7 11.7 - [facility] 15.5 gm/dL [facility] LABORATORY Hematocrit 33.5 (L) 35.7 - [facility] 45.8 % [facility] MCV 88.2 82.6 - [facility] 94.4 [facility] LABORATORY MCH 30.8 27.1 - [facility] 32.0 pg [facility] LABORATORY MCHC 34.9 31.7 - [facility] HOSPITALCOCK 35.0 gm/dL [facility] Platelets 230 145 - 357 [facility] x10(3)/[facility] RDWSD 43.6 37.0 - [facility] MARIANELA 46.0 [facility] RDWCV 13.4 11.5 - [facility] 14.1 % [facility] MPV 9.8 7.6 - 12.9 [facility] LABORATORY nRBC % Auto 0.0 % [facility] nRBC Abs Auto 0.000 0.000 - NILDA MARIANELA 0.000 [facility] x10(3)/[facility] LABORATORY Specimen Anatomical Collection Method Collection Time Receive d Time (Source) Location / / Volume Laterality Blood specimen 02/15/2019 4:45 AM 019 4:56 (specimen) EDT AM EDT Resulting Agency Comment Spec In Lab Rick Mehta APRN HEMATOLOGY ORDERABLES Performing Organization Address City/State/[place] [address] Heparin (unfractionated) Level (02/15/2019 4:45 AM EDT) P athologist Signature Heparin UFH 0.46 IU/mL [facility] LABORATORY Comment: Guidelines for therapeutic unfractionate d [...] Volume Laterality Blood specimen 02/15/2019 4:45 AM 4:56 (specimen) EDT AM EDT Resulting Agency Comment Spec In Lab Rick Mehta APRN HEMATOLOGY ORDERABLES Performing Organization Address City/[facility]/ZIP Code Phon e Number [address] Magnesium (02/15/2019 4:45 AM EDT) P athologist Signature Magnesium 0.86 0.69 - 1.07 [facility] mmol/L [facility] Specimen Anatomical Collection Method Collection Time Receive d Time (Source) Location / / Volume Laterality Blood specimen 02/15/2019 4:45 AM 019 4:56 (specimen) EDT AM EDT Resulting Agency Comment Spec In Lab Rick Mehta APRN CHEMISTRY ORDERABLES Performing Organization Address City/[facility]/ZIP [place] [address] (ABNORMAL) BMP w/fasting Glucose (02/15/2019 4:45 AM EDT) P athologist Signature Glucose 164 (H) 65 - 99 NILDA FERRO Fasting mg/dL [facility] Comment: ?Fasting* Glucose Interpretive C [...] of Diabetes Mellitus, Position Statement from the [employer] Diabetes Association. ??Diabete s Care, Volume 33, Supplement 1, May 2009 BUN 19 (H) 8 - 18 mg/dL [facility] Creatinine 0.59 (L) 0.70 - 1.20 mg/dL [facility] Sodium 142 135 - 145 mmol/L [facility] Potassium 3.9 3.5 - 5.0 mmol/L [facility] Comment: Please note: ??Patients with WBC >100,00 0 may have falsely elevated Potassium levels. ??For accurate Potassium quantif ication in these patients send serum separator tube (gold top) for subsequent determinations. ??Contact the Clinical Chemistry Laboratory if there are any qu estions. Chloride 108 (H) 98 - 107 mmol/L [facility] CO2 21 (L) 22 - 31 mmol/L [facility] Anion Gap 13 5 - 15 mmol/L [facility] Calcium 9.6 8.5 - 10.5 mg/dL [facility] Estimated GFR 90 >=60 mL/min/1.73 m?? [facility] Comment: The eGFR was calculated using the CKD-EP I equation. As with all creatinine based estimates of kidney function, eGFR values calculated with the CKD-EPI equation are not accurate in patients wi th acute kidney failure, extremes of body mass or the acutely ill. [email or web address] eGFR 104 >=60 mL/min/1.73 m?? [facility] Comment: The eGFR was calculated using the CKD-EP I equation. As with all creatinine based estimates of kidney function, eGFR values calculated with the CKD-EPI equation are not accurate in patients wi th acute kidney failure, extremes of body mass or the acutely ill. [email or web address] Specimen Anatomical Collection Method Collection Time Receive d Time (Source) Location / / Volume Laterality Blood specimen 02/15/2019 4:45 AM 4:56 (specimen) EDT AM EDT Resulting Agency Comment Spec In Lab Rick Mehta STENCIL MACHINE OPERATOR CHEMISTRY ORDERABLES Performing Organization Address City/[facility] [place] [address] Heparin (unfractionated) Level (02/14/2019 7:49 PM EDT) P athologist Signature Heparin UFH 0.61 IU/mL [facility] LABORATORY Comment: Guidelines for therapeutic unfractionate d [...] Volume Laterality Blood specimen 02/14/2019 7:49 PM 8:01 (specimen) EDT PM EDT Resulting Agency Comment Spec In Lab John Hua MD HEMATOLOGY ORDERABLES Performing Organization Address [facility] [place] [address] Heparin (unfractionated) Level (02/14/2019 1:59 PM EDT) athologist Signature Heparin UFH 0.65 IU/mL [facility] LABORATORY Comment: Guidelines for therapeutic unfractionate d [...] Organization Address City/State/ZIP [place] [address] ECHOCARDIOGRAM COMPLETE (02/14/2019 9:51 AM EDT) athologist Signature EF 72 [facility] Anatomical Region Laterality Modality Other Specimen (Source) Anatomical Location Collection Method / Collectio n Time Received Time / Laterality Volume 02/14/2019 Narrative 02/14/2019 11:46 AM EDT Procedure: ?Transthoracic Echocardiogram Patient: ?HEMOND ALBINA R ? (Age): 1945(73y) Med Rec#: ? [id number] ?Sex: ?F ? Site Loc: ? DH ?Ht / Wt: ??154(cm)/68(kg) Pt. Loc: ?Adult Floor ? BSA: ?1.66 Study Date: ?? 02/14/2019 ?Pt. Type: Inpatient Tape: ? Referring: HONEY Referring: Rick Mehta Reading: John Hua ([id number]) Rail Transportation Tabeler: Suzy Trejo Diagnosis: *Atherosclerotic heart disease of [...] E-wave Vmax ?0.7 ?m/sec ? MV deceleration avuh640.5 ? msec ? MV A-wave Vmax ?0.9 [...] ? Mid-Inferior ?Normal ? Mid-Inferoseptal ?Normal ? [place]-Septal ? Normal ? [place]-Anterior ? Normal ? [place]-Lateral ?Normal ? [place]-Inferior ? Normal ? [place]-Tip ?Normal ? This report has been electronically sign ed by: _ John Hua MD ? 02/14/2019 11:45 :39 Images reviewed and interpretation verif ied [facility] Cardiac Ultrasound Laboratory Procedure Note John Hua MD - 02/14/2019Formattin boyd of this note might be different from the original. Procedure: Transthoracic Echocardiogram Patient: OLIVA Piedra DOB(Age): [birth year]73y) Med Rec#: [id number] Sex: F Site Loc: [facility] Ht / Wt: 154(cm)/68(kg) Pt. Loc: Adult Floor BSA: 1.66 Study Date: 02/14/2019 Pt. Type: Inpatie nt Tape: Referring: HONEY Referring: Rick Mehta Reading: John Hua ([id number]) Rail [employer] Tabeler: Suzy Trejo Diagnosis: *Atherosclerotic heart disease of [...] MV E-wave Vmax 0.7 m/sec MV deceleration what101.5 msec MV A-wave Vmax 0.9 m/sec MV [...] Normal Mid-Posterolateral Normal Mid-Inferior Normal Mid-Inferoseptal Normal [place]-Septal Normal [place]-Anterior Normal [place]-Lateral Normal [place]-Inferior Normal [place]-Tip Normal This report has been electronically sign ed by: _ John Hua MD 02/14/2019 11:45:39 Images reviewed and interpretation vipin cerna [facility] Cardiac Ultrasound Laboratory Rcik Mehta APRN ECHO ORDERABLES Troponin (02/14/2019 6:44 AM EDT) athologist Signature Troponin-T <0.01 0.00 - 0.00 [facility] ng/mL [facility] Comment: The 99th percentile for Troponin T is le ss than 0.01 ng/mL, any detectable cTnT concentration using this assay should be considered elevated. According to the third universal definit ion of myocardial infarction the following criteria with a clinical prese ntation consistent with acute myocardial ischemia meets the diagnosis for a myocardial infarction ([place]). Detection of a rise and/or fall of [...] additional sample may be indicated. Reference: Third [place] Definition of Myocardial Infarction. Journal of the Chinese College of Cardiology 2012;60:1581-98 Specimen Anatomical Collection Method Collection Time Receive d Time (Source) Location / / Volume Laterality Blood specimen 02/14/2019 6:44 AM 019 6:51 (specimen) EDT AM EDT Resulting Agency Comment Spec In Lab Logan Hernandes MD CHEMISTRY ORDERABLES Performing Organization Address City/State/[place] [address] Heparin (unfractionated) Level (02/14/2019 6:44 AM EDT) athologist Signature Heparin UFH 0.74 IU/mL [facility] LABORATORY Comment: Guidelines for therapeutic unfractionate d [...] Organization Address City/State/[place] [address] (ABNORMAL) Differential, Automated (02/14/2019 6:44 AM EDT) [facility] Method Time Signature Neutrophils % 91.3 % [facility] Neutr Abs (ANC) 6.44 (H) 1.70 - [facility] 6.10 [facility] x10(3)/[facility] LABORATORY Lymphocytes % 7.9 % [facility] Lymphocytes Abs 0.6 (L) 0.9 - 3.2 [facility] x10(3)/[facility] LABORATORY Monocytes % 0.4 % [facility] Monocyte Abs 0.0 (L) 0.3 - 0.9 [facility] x10(3)/[facility] LABORATORY Eosinophils % 0.0 % [facility] Eosinophils Abs 0.0 0.0 - 0.4 [facility] x10(3)/[facility] LABORATORY Basophils % 0.1 % [facility] Basophils Abs 0.0 0.0 - 0.1 [facility] x10(3)/[facility] LABORATORY Immature Gran % 0.30 % [facility] Comment: Immature granulocytes(IG's)percentage an d absolute count will include metamyelocytes, myelocytes, and promyelo cytes. Blood smears from CBCs yielding IG's will be scanned manually for concor dance. If this scan disagrees with the automated IG or if promyelocytes are not ed, a manual differential will be performed. Edith Gran Abs 0.02 0.00 - 0.04 x10(3)/[facility] LABORATORY Specimen Anatomical Collection Method Collection Time Receive d Time (Source) Location / / Volume Laterality Blood specimen 02/14/2019 6:44 AM 019 6:51 (specimen) EDT AM EDT Resulting Agency Comment Spec In Lab Rick Mehta APRN HEMATOLOGY ORDERABLES Performing Organization Address City/State/[place] [address] Hemogram (02/14/2019 6:44 AM EDT) P athologist Signature WBC 7.1 4.0 - 9.5 [facility] x10(3)/[facility] LABORATORY RBC 4.22 4.00 - NILDA MARIANELA 5.21 [facility] x10(6)/[facility] Hemoglobin 12.7 11.7 - [facility] 15.5 gm/dL [facility] Hematocrit 37.4 35.7 - [facility] MARIANELA 45.8 % [facility] MCV 88.6 82.6 - [facility] MAR[facility] 94.4 [facility] LABORATORY MCH 30.1 27.1 - NILDA MARIANELA 32.0 pg [facility] MCHC 34.0 31.7 - [facility] 35.0 gm/dL [facility] Platelets 222 145 - 357 [facility] x10(3)/[facility] LABORATORY RDWSD 43.5 37.0 - NILDA MARIANELA 46.0 [facility] RDWCV 13.2 11.5 - [facility] 14.1 % [facility] MPV 9.4 7.6 - 12.9 [facility] nRBC % Auto 0.0 % [facility] nRBC Abs Auto 0.000 0.000 - [facility] 0.000 [facility] x10(3)/[facility] LABORATORY Specimen Anatomical Collection Method Collection Time Receive d Time (Source) Location / / Volume Laterality Blood specimen 02/14/2019 6:44 AM 019 6:51 (specimen) EDT AM EDT Resulting Agency Comment Spec In Lab Rick Mehta APRN HEMATOLOGY ORDERABLES Performing Organization Address City/[facility]/ZIP [facility] Phon e Number [address] Triglyceride (02/14/2019 6:44 AM EDT) athologist Signature Triglycerides 51 mg/dL [facility] Comment: Average Risk/Lower Risk: <150 mg/dL Borderline High Risk: 150-199 mg/dL High Risk: 200-499 mg/dL Very High Risk: >af=524 mg/dL Specimen Anatomical Collection Method Collection Time Receive d Time (Source) Location / / Volume Laterality Blood specimen 02/14/2019 6:44 AM 019 6:51 (specimen) EDT AM EDT Resulting Agency Comment Spec In Lab Rick Mehta APRN CHEMISTRY ORDERABLES Performing Organization Address City/[facility] Phon e Number [address] HDL/Cholesterol Profile (02/14/2019 6:44 AM EDT) athologist Signature Chol, Total 170 mg/dL [facility] Comment: Lower Risk: <200 mg/dL Average Risk: 200-239 mg/dL Higher Risk: >az=121 mg/dL HDL 77 mg/dL [facility] Comment: Males: ?? Higher Risk: <40 mg/dL Females: ?? HIgher Risk: <50 mg/dL Chol/HDL Ratio 2.2 ratio [facility] Chol/HDL Interpretation See Note [facility] LABOR[facility]ORY Comment: Lipid management should be guided by a p atient? s ASCVD risk, goals and preferences. ACC/AHA Guidelines recommend high intens ity statin if clinical ASCVD or LDL greater than or equal to 190 mg/dL. http://Chango.com/PCK-LSI-Wbemqcsvj Measure LDL if Total Cholesterol minus H DL Cholesterol is greater than 220 mg/dL. Adults aged 40-75 with LDL 70-189 mg/dL should have their 10 year ASCVD risk estimated with the ACC/AHA ASCVD risk es timator http://tools.acc.org/KGFCJ-Vrdy-Bhlrulxc r/ Statin should be discussed if risk [...] Mehta APRN CHEMISTRY ORDERABLES Performing Organization Address City/[facility]/ZIP [facility] Phon e Number [address] LDL Cholesterol, Direct (02/14/2019 6:44 AM EDT) athologist Signature LDL Chol 86 mg/dL [facility] LABORATORY Comment: Lowest Risk: <100 mg/dL Lower Risk: 100-129 mg/dL Borderline High Risk: 130-159 mg/dL High Risk: 160-189 mg/dL Very High Risk: >oh=800 mg/dL Specimen Anatomical Collection Method Collection Time Receive d Time (Source) Location / / Volume Laterality Blood specimen 02/14/2019 6:44 AM 019 6:51 (specimen) EDT AM EDT Resulting Agency Comment Spec In Lab Rick Mehta APRN CHEMISTRY ORDERABLES Performing Organization Address City/State/ZIP [place] [address] Hemoglobin A1c (02/14/2019 6:44 AM EDT) P athologist Signature Hemoglobin A1C 5.2 4.3 - 5.6 NILDA FERRO [facility] LAB[facility]ATORY Comment: Reference Range: 4.3 - 5.6% [...] [id number] Est Avg Gluc See note mg/dL [facility] Comment: Estimated Average Glucose not [...] with hemoglobinopathies. Additional resources are available on api healthcare ADA website. Jamar ESPINOZA, Palmer J, Collins R, et al. ??Tr anslating the A1C assay into estimated average glucose values. ??Diabetes Care 2008:31(8):9682-1515. Specimen Anatomical Collection Method Collection Time Receive d Time (Source) Location / / Volume Laterality Blood specimen 02/14/2019 6:44 AM 019 6:51 (specimen) EDT AM EDT Resulting Agency Comment Spec In Lab Rick Mehta STENCIL MACHINE OPERATOR CHEMISTRY ORDERABLES Performing Organization Address City/State/ZIP Code Phon e Number [address] Magnesium (02/14/2019 6:44 AM EDT) athologist Signature Magnesium 0.83 0.69 - 1.07 [facility] mmol/L [facility] Specimen Anatomical Collection Method Collection Time Receive d Time (Source) Location / / Volume Laterality Blood specimen 02/14/2019 6:44 AM 019 6:51 (specimen) EDT AM EDT Resulting Agency Comment Spec In Lab Rick Mehta STENCIL MACHINE OPERATOR CHEMISTRY ORDERABLES Performing Organization Address City/[facility]/ZIP Code Phon e Number [address] (ABNORMAL) BMP w/fasting Glucose (02/14/2019 6:44 AM EDT) athologist Signature Glucose 162 (H) 65 - 99 [facility] Fasting mg/dL [facility] Comment: ?Fasting* Glucose Interpretive C [...] of Diabetes Mellitus, Position Statement from the [employer] Diabetes Association. ??Diabete s Care, Volume 33, Supplement 1, May 2009 BUN 14 8 - 18 mg/dL [facility] Creatinine 0.59 (L) 0.70 - 1.20 mg/dL [facility] Sodium 140 135 - 145 mmol/L [facility] Potassium 3.9 3.5 - 5.0 mmol/L [facility] Comment: Please note: ??Patients with WBC >100,00 0 may have falsely elevated Potassium levels. ??For accurate Potassium quantif ication in these patients send serum separator tube (gold top) for subsequent determinations. ??Contact the Clinical Chemistry Laboratory if there are any qu estions. Chloride 105 98 - 107 mmol/L [facility] CO2 21 (L) 22 - 31 mmol/L [facility] Anion Gap 14 5 - 15 mmol/L [facility] Calcium 9.2 8.5 - 10.5 mg/dL [facility] Estimated GFR 90 >=60 mL/min/1.73 m?? [facility] Comment: The eGFR was calculated using the CKD-EP I equation. As with all creatinine based estimates of kidney function, eGFR values calculated with the CKD-EPI equation are not accurate in patients wi th acute kidney failure, extremes of body mass or the acutely ill. [email or web address]QUAHnkf eGFR 104 >=60 mL/min/1.73 m?? [facility] Comment: The eGFR was calculated using the CKD-EP I equation. As with all creatinine based estimates of kidney function, eGFR values calculated with the CKD-EPI equation are not accurate in patients wi th acute kidney failure, extremes of body mass or the acutely ill. [email or web address] Specimen Anatomical Collection Method Collection Time Receive d Time (Source) Location / / Volume Laterality Blood specimen 02/14/2019 6:44 AM 019 6:51 (specimen) EDT AM EDT Resulting Agency Comment Spec In Lab Rick Mehta APRN CHEMISTRY ORDERABLES Performing Organization Address City/State/[place] [address] EKG 12 Lead (02/14/2019 6:29 AM EDT) Component Value Ref Range Test Analysis Performed Pathologis t Method Time At Signature Ventricular rate 61 BPM MUSE SYSTEM Atrial Rate 61 BPM MUSE SYSTEM P-R Interval 172 ms MUSE SYSTEM QRS Duration 102 ms MUSE SYSTEM Q-T Interval 408 ms MUSE SYSTEM QTC Calculated 410 ms MUSE SYSTEM (Bezet) Calculated P [place] 52 degrees MUSE SYSTEM Calculated R [place] 41 degrees MUSE SYSTEM Calculated T [place] 64 degrees MUSE SYSTEM INTERPRETATION Normal sinus [...] Mehta APRN ECG ORDERABLES Performing Organization Address City/State/[facility] Phon e Number MUSE SYSTEM Heparin (unfractionated) Level (02/14/2019 12:52 AM EDT) P athologist Signature Heparin UFH 0.64 IU/mL [facility] LABORATORY Comment: Guidelines for therapeutic unfractionate d [...] Organization Address City/State/ZIP [place] [address] Troponin (02/13/2019 9:30 PM EDT) athologist Signature Troponin-T <0.01 0.00 - 0.00 NILDA FERRO ng/mL [facility] Comment: The 99th percentile for Troponin T is le ss than 0.01 ng/mL, any detectable cTnT concentration using this assay should be considered elevated. According to the third universal definit ion of myocardial infarction the following criteria with a clinical prese ntation consistent with acute myocardial ischemia meets the diagnosis for a myocardial infarction ([place]). Detection of a rise and/or fall of [...] additional sample may be indicated. Reference: Third [place] Definition of Myocardial Infarction. Journal of the [employer] College of [employer]iology 2012;60:1581-98 Specimen Anatomical Collection Method Collection Time Receive d Time (Source) Location / / Volume Laterality Blood specimen 02/13/2019 9:30 PM 019 9:59 (specimen) EDT PM EDT Resulting Agency Comment Spec In Lab Rick Mehta STENCIL MACHINE OPERATOR CHEMISTRY ORDERABLES Performing Organization Address City/[facility]/ZIP [place] [address] (ABNORMAL) Hepatic Function Panel (02/13/2019 3:53 PM EDT) athologist Signature Total Protein 6.9 6.1 - 8.0 NILDA FERRO gm/dL [facility] Albumin 3.9 3.2 - 5.2 NILDA MARIANELA gm/dL [facility] AST 22 0 - 30 [facility] unit/L [facility] ALT 14 0 - 30 [facility] unit/L [facility] Alk Phos 110 (H) 35 - 105 [facility] unit/L [facility] Total 0.7 0.2 - 1.3 [facility] Bilirubin mg/dL [facility] Bili, Direct 0.2 0.0 - 0.3 [facility] mg/dL [facility] Specimen Anatomical Collection Method Collection Time Receive d Time (Source) Location / / Volume Laterality Blood specimen Venous Draw / 02/13/2019 3:53 PM 2018 4:00 (specimen) Unknown EDT PM EDT Resulting Agency Comment Spec In Lab Rick Mehta APRN CHEMISTRY ORDERABLES Performing Organization Address City/State/ZIP [place] [address] Lipid Panel (Reflex Direct LDL) (02/13/2019 3:53 PM EDT) P athologist Signature Chol, Total 165 mg/dL [facility] Comment: Lower Risk: <200 mg/dL Average Risk: 200-239 mg/dL Higher Risk: >un=796 mg/dL Triglycerides 79 mg/dL [facility] Comment: Average Risk/Lower Risk: <150 mg/dL Borderline High Risk: 150-199 mg/dL High Risk: 200-499 mg/dL Very High Risk: >rm=573 mg/dL HDL 65 mg/dL [facility] Comment: Males: ?? Higher Risk: <40 mg/dL Females: ?? HIgher Risk: <50 mg/dL LDL Cholesterol 84 mg/dL [facility] Comment: Lowest Risk: <100 mg/dL Lower Risk: 100-129 mg/dL Borderline High Risk: 130-159 mg/dL High Risk: 160-189 mg/dL Very High Risk: >cu=738 mg/dL Chol/HDL Ratio 2.5 ratio [facility] Lipid Interpretation See Note [facility]OR[facility]ORY Comment: Lipid management should be guided by a p atient? s ASCVD risk, goals and preferences. ACC/AHA Guidelines recommend high intens ity statin if clinical ASCVD or LDL greater than or equal to 190 mg/dL. [email or web address]://Chango.com/SVR-PUD-Yglfrurld Adults aged 40-75 with LDL 70-189 mg/dL should have their 10 year ASCVD risk estimated with the ACC/AHA ASCVD risk es timator http://tools.acc.org/DCAZG-Gnrd-Jacyohjh r/ Statin should be discussed if risk [...] Organization Address City/State/ZIP Code Phon e Number [place] [id number] HOS[address] LAB[address] Heparin (unfractionated) Level (02/13/2019 3:53 PM EDT) athologist Signature Heparin UFH 0.22 IU/mL [facility] LABORATORY Comment: Guidelines for therapeutic unfractionate d [...] Agency Comment Spec In Lab Rick Mehta STENCIL MACHINE OPERATOR HEMATOLOGY ORDERABLES Performing Organization Address City/State/[place] [address] Troponin (02/13/2019 3:53 PM EDT) P athologist Signature Troponin-T <0.01 0.00 - 0.00 [facility] ng/mL [facility] Comment: The 99th percentile for Troponin T is le ss than 0.01 ng/mL, any detectable cTnT concentration using this assay should be considered elevated. According to the third universal definit ion of myocardial infarction the following criteria with a clinical prese ntation consistent with acute myocardial ischemia meets the diagnosis for a myocardial infarction ([place]). Detection of a rise and/or fall of [...] additional sample may be indicated. Reference: Third [place] Definition of Myocardial Infarction. Journal of the [employer] 2012;60:1581-98 Specimen Anatomical Collection Method Collection Time Receive d Time (Source) Location / / Volume Laterality Blood specimen 02/13/2019 3:53 PM 019 3:59 (specimen) EDT PM EDT Resulting Agency Comment Spec In Lab Rick Aries Cathi LOVELL CHEMISTRY ORDERABLES Performing Organization Address City/[facility]/ZIP [place] [address] (ABNORMAL) APTT (02/13/2019 3:53 PM EDT) P athologist Signature PTT 93 (H) 25 - 37 sec [facility] Comment: The PTT is NOT [...] Cathi LOVELL HEMATOLOGY ORDERABLES Performing Organization Address [facility] [place] [address] Prothrombin Time (02/13/2019 3:53 PM EDT) P athologist Signature PT 12.4 9.4 - 12.5 [facility] LABORATORY INR 1.1 [facility] Comment: An INR <2.0 indicates [...] Mehta APRN HEMATOLOGY ORDERABLES Performing Organization Address City/[facility]/[place] [address] EKG 12 Lead (02/13/2019 3:14 PM EDT) Component Value Ref Range Test Analysis Performed Pathologis t Method Time At Signature Ventricular rate 88 BPM MUSE SYSTEM Atrial Rate 88 BPM MUSE SYSTEM P-R Interval 176 ms MUSE SYSTEM QRS Duration 94 ms MUSE SYSTEM Q-T Interval 354 ms MUSE SYSTEM QTC Calculated 428 ms MUSE SYSTEM (Bezet) Calculated P [place] 51 degrees MUSE SYSTEM Calculated R [place] 36 degrees MUSE SYSTEM Calculated T [place] 60 degrees MUSE SYSTEM INTERPRETATION Sinus rhythm [...] / / Volume Laterality 02/13/2019 3:14 PM EDT 11:16 AM EDT Rick Mehta APRN ECG ORDERABLES Performing Organization Address City/State/ZIP Code Phon e Number MUSE SYSTEM documented in this encounter Visit Diagnoses Diagnosis ASCVD (arteriosclerotic cardiovascular d isease) Unspecified cardiovascular disease Essential hypertension Unspecified essential hypertension Palpitations Angina at rest Other and unspecified angina pectoris Coronary atherosclerosis of [place] artery Hyperlipidemia Other and unspecified hyperlipidemia documented in this encounter Admitting Diagnoses Diagnosis Angina [...] Given 02/16/2019 9:03 AM EDT 20 mg fluticasone propionate (FLONASE) 50 Given 02/14/2019 8:51 PM EDT 2 sprays mcg/actuation nasal spray 2 spray 2 spray, Each Nare, NIGHTLY, First dose on 02/13/19 at 2100, Until Discontinued, Routine Given 02/13/2019 8:51 PM EDT 2 sprays heparin (porcine) injection 0-4,000 Given 02/13/2019 6:11 PM EDT 2,000 Units Units 0-4,000 Units, Intravenous, BOLUS PER HEPARIN PROTOCOL, Starting on 02/13/19 at 1511, Until 02/17/19 at 1110, Per Protocol, START ADJUSTMENT SCHEDULE 6 HOURS AFTER STARTING INFUSION Heparin UFH Level between 0.1 - 0.29 IU/mL: Bolus 2,000 units Heparin UFH Level less than 0.1 IU/mL: Bolus 4,000 units, Routine heparin 25,000 units in New Bag 02/14/2019 4:22 PM EDT 900 Units/h r 18 mL/hr dextrose 5% 500 mL infusion 0-5,000 Units/hr (0-100 mL/hr), Intravenous, CONTINUOUS, Starting on 02/13/19 at 1530, Until 02/17/19 at 1110, BEGIN infusion at 800 units per hr (12 units/kg/hr). MAX INITIAL infusion rate is 1,000 units/hr. Target Heparin UFH Level (anti-Xa activity) = 0.3 - 0.7 IU/mL Start adjustment schedule 6 hours after starting infusion. If Heparin UFH Level is: - less than 0.1 IU/mL, administer PRN bolus and increase rate by 250 units per hr (4 units/kg/hr) - 0.1 - 0.29 IU/mL, administer PRN bolus and increase rate by 150 units per hr (2 units/kg/hr) - 0.3 - 0.7 IU/mL, No Change - 0.71 - 0.85 IU/mL, decrease rate by 50 units per hr (1 units/kg/hr) - 0.86 - 1.05 IU/mL, stop infusion for 30 minutes, then decrease rate by 150 units per hr (2 units/kg/hr) - Greater than 1.05 IU/mL, stop infusion for 60 minutes, then decrease rate by 200 units per hour (3 units/kg/hr) Repeat Heparin UFH Level 6 hours after initiating heparin. Then 6 hours after each dose adjustment. When 2 consecutive Heparin UFH Level within target range of 0.3 - 0.7 IU/mL, change Heparin UFH Level to once every 24 hours with A.M. labs while on heparin. RN to order required Heparin UFH Level - Per Protocol, Routine, Indication: ACS (STEMI vs NSTEMI vs UA) Rate/Dose Change 02/14/2019 7:55 AM EDT 900 Units/hr 18 mL/hr Rate/Dose Change 02/13/2019 6:13 PM EDT 1,050 Units/hr 21 mL/hr hyaluronidase (ovine) (VITRASE) injection 1-10 Given 1 4:45 AM EDT 1 mL mL 1-10 mL, Subcutaneous, ONCE, 1 dose, On 02/15/19 at 0415, Hyaluronidase is supplied in a 1-mL vial at a concentration of 200 units/mL. Dilute with 9 mL of normal saline. This yields the desired concentration of 20 units/mL. Draw up 1 mL increments of the diluted solution into a 1-mL syringe with a 26-g needle. Instill 0.2 -mL aliquots of the solution at least every 2 - 3 centimeters or five evenly spaced aliquots subcutaneously around the periphery of the infiltrated area. Use a new 26-gauge needle for each injection. This is best done within one hour of the extravasation. Discard the remaining solution. , STAT levothyroxine (SYNTHROID) tablet 75 mcg Given 02/17/2019 [...] 02/15/2019 10:06 AM EDT 50 mg metoprolol (LOPRESSOR) tablet 12.5 mg Given 02/17/2019 5:38 AM EDT 12.5 mg 12.5 mg, Oral, EVERY 6 HOURS SCHEDULED, First dose on 02/13/19 at 1800, Until Discontinued, Hold for SBP less than 90 mmHG or HR less than 50 beats per minute, Routine Given 02/17/2019 1:03 AM EDT 12.5 mg Given 02/16/2019 6:01 PM EDT 12.5 mg metoprolol succinate (TOPROL-XL) XL tablet 50 Given 12:04 PM EDT 50 mg mg 50 mg, Oral, DAILY, First dose on 02/17/19 at 1130, Until Discontinued, DO NOT CRUSH OR OPEN, Routine metoprolol succinate (TOPROL-XL) XL tabl et 75 mg 75 mg, Oral, DAILY, First dose (after la st modification) on Razia 02/18/19 at 0900, Until Discontinued, DO NOT CRUSH OR OPEN, Routine montelukast (SINGULAIR) tablet 10 mg Given 02/16/2019 [...] 02/14/2019 9:30 AM EDT 1 tablet nitroGLYcerin 50 mg in Rate/Dose Change 02/14/2019 [...] 12:01 AM EDT 10 mcg/min 3 mL/hr nitroGLYcerin 50 mg/250 mL (200 New Bag 02/13/2019 3:30 PM EDT 3 mcg/min 0.9 mL/hr mcg/mL) infusion 1 dose, Starting on 02/13/19 at 1516, Until 02/13/19 at 1530, KOLE TOM overrlesley predniSONE (DELTASONE) tablet 60 mg Given 02/14/2019 5:45 AM EDT 60 mg 60 mg, Oral, EVERY 6 HOURS SCHEDULED, 3 doses, First dose on 02/13/19 at 1800, Last dose on 02/14/19 at 0600, 60mg twice daily the day before and at 6 am on the day of procedure., Routine Given 02/14/2019 12:26 AM EDT 60 mg Given 02/13/2019 5:42 PM EDT 60 mg predniSONE (DELTASONE) tablet 60 mg Given 02/15/2019 5:56 AM EDT 60 mg 60 mg, Oral, EVERY 6 HOURS SCHEDULED, 3 doses, First dose (after last reorder) on 02/14/19 at 1800, Last dose on 02/15/19 at 0600, 60mg twice daily the day before and at 6 am on the day of procedure., Routine Given 02/14/2019 11:38 PM EDT 60 mg Given 02/14/2019 5:20 PM EDT 60 mg rosuvastatin (CRESTOR) tablet 5 mg Given 02/16/2019 6:01 PM EDT 5 mg 5 mg, Oral, EVERY EVENING, First dose on 02/14/19 at 1700, Until Discontinued, Routine Given 02/15/2019 4:57 PM EDT 5 mg Given 02/14/2019 5:20 PM EDT 5 mg sodium chloride 0.9% infusion New Bag 02/13/2019 11:47 PM EDT 50 mL/hr 50 mL/hr 50 mL/hr, Intravenous, CONTINUOUS, Starting on 02/14/19 at 0000, Until 02/14/19 at 1149 sodium chloride 0.9% infusion New Bag 02/14/2019 11:39 PM EDT 50 mL/hr 50 mL/hr 50 mL/hr, Intravenous, CONTINUOUS, Starting on Fri02/15/19 at 0000, Until Fri02/17/19 at 1749 sodium chloride 0.9% infusion New Bag 02/16/2019 5:00 PM EDT 100 mL/hr 100 mL/hr 100 mL/hr, Intravenous, CONTINUOUS, Starting on Fri02/16/19 at 1715, Until 02/16/19 at 2214, Recovery (Recovery-Hospital Unit) ticagrelor (BRILINTA) tablet 90 mg Given 02/17/2019 [...] Given 02/15/2019 10:08 AM EDT 100 mg documented in this encounter Active and Recently Administered Medications Times are shown in EDT. Scheduled Medication Order 02/15/2019 02/16/2019 02/17/2019 aspirin EC tablet 81 mg 0758 (JUL Hold - Provider: Luciano dmin Adt - Reason: Transfer to a Procedural area)0808 (Given - Provider: Steffany Morris RN)0957 (JUL Unhold - Provider: Admin Adt) 0903 [...] Provider: Delma Dotson RN - Reason: Patient/family refused)143 ([facility] Hold - Provider: Admin Adt - Reason: Transfer to a Procedural area)1732 ([facility] Unhold - Provider: Admin Adt) 0848 (Not Given - Provider: Delma mcduffie RN - Reason: Patient/family refused) 2 Inhalation, Inhalation, 2 TIMES DAILY, First dose on 02/13/19 at 2099, Until Discontinued 2099 (Not Given - Provider: Alesha Gottlieb RN - Reason: Patient/family refused) 2099 (Not Given - Provider: Alesha Gottlieb RN - Reason: Patient/family refused) cholecalciferol (Vitamin D3) tablet 2,000 Units 0758 ( JUL Hold - Provider: Admin Adt - Reason: Transfer to a Procedural area)0900 (Automatically Held - Provider: Admin Adt)0957 ([facility] Unhold - Provider: Admin Adt)1005 (Given - Provider: Oxana Tran RN)2056 (Given - Provider: Alesha Gottlieb RN) 0903 (Given - Provider: Delma Dotson RN)143 ([facility] Hold - Provider: Admin Adt - Reason: Transfer to a Procedural area)1732 ([facility] Unhold - Provider: Admin Adt)2013 (Given - Provider: Alesha Gottlieb RN) 0838 (Given - Provider: Delma Campos nd, LONNIE) 2,000 Units, Oral, 2 TIMES DAILY, First dose on 02/13/19 at 2099, Until Discontinued, Routine cycloSPORINE (RESTASIS) 0.05 % ophthalmic emulsion 1 d rop 0758 ([facility] Hold - Provider: Admin Adt - Reason: Transfer to a Procedural area)0900 (Automatically Held - Provider: Admin Adt)0957 ([facility] Unhold - Provider: Admin Adt)2056 (Given - Provider: Alesha Gottlieb RN) 0902 (Given - Provider: Delma Campos nd, RN)1436 ([facility] Hold - Provider: Admin Adt - Reason: Transfer to a Procedural area)173 ([facility] Unhold - Provider: Admin Adt)2013 (Given - Provider: Alesha Gottlieb RN) 0850 (Given - Provider: Delma Dotson RN) 1 drop, Both Eyes, 2 TIMES DAILY, First dose on 02/13/19 at 2100, Until Discontinued, Routine docusate sodium (COLACE) capsule 100 mg 0758 ([facility] Hold - Provider: Admin Adt - Reason: Transfer to a Procedural area)0900 (Automatically Held - Provider: Admin Adt)0957 ([facility] Unhold - Provider: Admin Adt)1006 (Given - Provider: Oxana salinas RN) 0900 (Not Given - Provider: Delma mcduffie RN - Reason: Patient/family refused)1436 ([facility] Hold - Provider: Admin Adt - Reason: Transfer to a Procedural area)1733 ([facility] Unhold - Provider: Admin Adt) 0900 (Not Given - Provider: Delma Dotson RN - Reason: Patient/family refused) 100 mg, Oral, 2 TIMES DAILY, First dose on 02/13/19 at 2100, Until Discontinued, Routine 2099 (Not Given - Provider: Alesha Gottlieb RN - Reason: Patient/family refused) 2099 (Not Given - Provider: Alesha Gottlieb RN - Reason: Patient/family refused) famotidine (PEPCID) tablet 20 mg 0758 (JUL Hold - Prov ider: Admin Adt - Reason: Transfer to a Procedural area)0900 (Automatically Held - Provider: Admin Adt)0957 ([facility] Unhold - Provider: Admin Adt)1006 (Given - Provider: Oxana salinas RN)205 (Given - Provider: Alesha Gottlieb RN) 0903 (Given - Provider: Delma Dotson RN)1436 ([facility] Hold - Provider: Admin Adt - Reason: Transfer to a Procedural area)1733 ([facility] Unhold - Provider: Admin Adt)2013 (Given - Provider: Alesha Gottlieb RN) 0838 (Given - Provider: Delma Campos nd RN) 20 mg, Oral, 2 TIMES DAILY, First dose o n 02/13/19 at 2100, Until Discontinued, Routine fluticasone propionate (FLONASE) 50 mcg/actuation nasa l spray 2 spray 0758 ([facility] Hold - Provider: Admin Adt - Reason: Transfer to a Procedural area)0957 ([facility] Unhold - Provider: Admin Adt)2099 (Not Given - Provider: Alesha Gottlieb RN - Reason: Patient/family refused) 1436 ([facility] Hold - Provider: Admin Adt - R miguel angel: Transfer to a Procedural area)1733 ([facility] Unhold - Provider: Admin Adt)2100 (Not Given [...] 0556 (Given - Provider: Omari Pollard RN)0758 ([facility] Hold - Provider: Admin Adt - Reason: Transfer to a Procedural area)0957 ([facility] Unhold - Provider: Admin Adt) 0608 (Given - Provider: Alesha Gottlieb RN)1436 ([facility] Hold - Provider: Admin Adt - Reason: Transfer to a Procedural area)1733 ([facility] Unhold - Provider: Admin Adt) 0538 (Given - Provider: Alesha Gottlieb RN) 75 mcg, Oral, EVERY MORNING, First dose on 02/14/19 at 0600, Until Discontinued, Routine losartan (COZAAR) tablet 50 mg 0758 ([facility] Hold - Provid er: Admin Adt - Reason: Transfer to a Procedural area)0900 (Automatically Held - Provider: Admin Adt)0957 ([facility] Unhold - Provider: Admin Adt)1006 (Given - Provider: Oxana salinas RN) 0903 (Given - Provider: Delma Campos nd, RN)1436 ([facility] Hold - Provider: Admin Adt - Reason: [...] mg (CANCELED) 1204 (Given - Provider: Delma Dotson RN) 50 mg, Oral, DAILY, First dose on Fri at 1130, Until Discontinued, DO NOT CRUSH OR OPEN, Routine metoprolol succinate (TOPROL-XL) XL tablet 75 mg 75 mg, Oral, DAILY, First dose on Razia at 0900, Until Discontinued, DO NOT CRUSH OR OPEN, Routine montelukast (SINGULAIR) tablet 10 mg 0758 (JUL Hold - Provider: Admin Adt - Reason: Transfer to a Procedural area)0957 ([facility] Unhold - Provider: Admin Adt)2058 (Given - Provider: Alesha Gottlieb, LONNIE) 1436 ([facility] Hold - Provider: Admin Adt - Reason: Transfer to a Procedural area)173 ([facility] Unhold - Provider: Admin Adt)2013 (Given - Provider: Alesha Gottlieb RN) 10 mg, Oral, NIGHTLY, First dose on 02/13/19 at 2100, Until Discontinued, Routine multivitamin with minerals (THERA-M) tablet 1 tablet 0 758 (JUL Hold - Provider: Admin Adt - Reason: Transfer to a Procedural area)0900 (Automatically Held - Provider: Admin Adt)0957 ([facility] Unhold - Provider: Admin Adt) 0903 (Given - Provider: Delma Dotson, LONNIE)143 ([facility] Hold - Provider: Admin Adt - Reason: Transfer to a Procedural area)1733 ([facility] Unhold - Provider: Admin Adt) 0838 (Given - Provider: Delma Dotson, LONNIE) 1 tablet, Oral, DAILY, First dose on [...] - Reason: Transfer to a Procedural area)0957 ([facility] Unhold - Provider: Admin Adt)1657 (Given - Provider: Oxana Tran RN) 1436 ([facility] Hold - Provider: Admin Adt - Reason: Transfer to a Procedural area)1700 (Automatically Held - Provider: Admin Adt)1733 ([facility] Unhold - Provider: Admin Adt)1801 (Given - Provider: Delma Dotson RN) 5 mg, Oral, EVERY EVENING, First dose on 02/14/19 at 1700, Until Discontinued, Routine ticagrelor (BRILINTA) tablet 90 mg 0758 (JUL Hold - Pr ovider: Admin Adt - Reason: Transfer to a Procedural area)0807 (Given - Provider: Steffany Morris RN)0957 ([facility] Unhold - Provider: Admin Adt)2058 (Given - Provider: Alesha Gottlieb RN) 0903 (Given - Provider: Delma Campos nd, LONNIE)1436 ([facility] Hold - Provider: Admin Adt - Reason: Transfer to a Procedural area)1733 ([facility] Unhold - Provider: Admin Adt)2013 (Given - Provider: Alesha Gottlieb RN) 0838 (Given - Provider: Delma Dotson RN) 90 mg, Oral, 2 TIMES DAILY, First dose o n 02/13/19 at 2100, Until Discontinued, After initial loading dose of aspirin (usually 325 mg), use ticagrelor with daily maintenance dose of aspirin of 81 mg , Routine ubiquinone (coenzyme Q10) capsule 100 mg 0758 ([facility] Hol d - Provider: Admin Adt - Reason: Transfer to a Procedural area)0900 (Automatically Held - Provider: Admin Adt)0957 ([facility] Unhold - Provider: Admin Adt)1008 (Given - Provider: Oxana salinas RN) 0904 (Given - Provider: Delma Campos nd, LONNIE)1436 ([facility] Hold - Provider: Admin Adt - Reason: Transfer to a Procedural area)1733 ([facility] Unhold - Provider: Admin Adt) 0850 (Given - Provider: Delma Campos nd, LONNIE) 100 mg, Oral, DAILY, First dose on Sun 1 at 0900, Until Discontinued, Routine Continuous Medication Order 02/15/2019 02/16/2019 02/17/2019 nitroGLYcerin 50 mg in dextrose 5% 250 mL infusion 075 8 ([facility] Hold - Provider: Admin Adt - Reason: Transfer to a Procedural area)0800 (Stopped - Provider: Steffany Morris, LONNIE)0957 ([facility] Unhold - Provider: Admin Adt) 1436 ([facility] Hold - Provider: Admin Adt - Reason: Transfer to a Procedural area)1733 ([facility] Unhold - Provider: Admin Adt) 10 mcg/min [...] provider, Routine sodium chloride 0.9% infusion 0758 ([facility] Hold - Provide r: Admin Adt - Reason: Transfer to a Procedural area)0957 ([facility] Unhold - Provider: Admin Adt) 1436 ([facility] Hold - Provider: Admin Adt - Reason: Transfer to a Procedural area)1733 ([facility] Unhold - Provider: Admin Adt) 50 mL/hr, at 50 mL/hr, Intravenous, CONT INUOUS, Starting 02/15/19 at 0000, Until Fri02/17/19 at 1749 sodium chloride 0.9% infusion () 1700 (New Bag - Provider: Daphne Linn, RN)1823 (Stopped - Provider: Delma Dotson RN - Comment: IV infiltrate) 100 mL/hr, at 100 mL/hr, Intravenous, CO NTINUOUS, Starting Fri02/16/19 at 1715, Until Fri02/16/19 at 2214, Recovery (Recovery-Hospital Unit) PRN Medication Order 02/15/2019 02/16/2019 02/17/2019 acetaminophen (TYLENOL) tablet 1,000 mg 0758 ([facility] Hold - Provider: Admin Adt - Reason: Transfer to a Procedural area)0957 ([facility] Unhold - Provider: Admin Adt) 1436 ([facility] Hold - Provider: Admin Adt - Reason: Transfer to a Procedural area)1733 ([facility] Unhold - Provider: Admin Adt) 1,000 mg, Oral, EVERY 6 HOURS PRN, Start ing 02/13/19 at 1657, Until Fri02/17/19 at 1749, Pain, Maximum dose of acetaminophen is 4000 mg from all sources in 24 hours., Routine albuterol (PROVENTIL) nebulizer solution 2.5 mg 0758 ( [facility] Hold - Provider: Admin Adt - Reason: Transfer to a Procedural area)0957 ([facility] Unhold - Provider: Admin Adt) 1436 ([facility] Hold - Provider: Admin Adt - R miguel angel: Transfer to a Procedural area)1733 ([facility] Unhold - Provider: Admin Adt) 2.5 mg, Nebulization, EVERY 4 HOURS PRN, Starting 02/13/19 at 1657, Until 02/17/19 at 1749, Wheezing, Routine fentaNYL 50 mcg/mL multi-dose injection (CANCELED) 081 1 (Given - Provider: Bryce Duggan)0839 (Given - Provider: Bryce Duggan) ONCE PRN, Starting 02/15/19 at 0811, Until 02/15/19 at 0913, Intra- Operative (Intra-Procedure), Routine fentaNYL 50 mcg/mL multi-dose injection (CANCELED) 1459 (Given - Provider: Igor Ho RN)1628 (Given - Provider: Natali Gao, LONNIE) ONCE PRN, Starting 02/16/19 at 1459, Until 02/16/19 at 1733, Intra- Operative (Intra-Procedure), Routine heparin (porcine) injection (CANCELED) 0822 (Given - P rovider: Bryce Duggan)0840 (Given - Provider: Bryce Duggan) ONCE PRN, Starting 02/15/19 at 0822, Until 02/15/19 at 0913, Cath (Intra- Procedure), Routine heparin (porcine) injection (CANCELED) 1 534 (Given - Provider: Natali Gao, LONNIE) ONCE PRN, Starting 02/16/19 at 1534, Until 02/16/19 at 1733, Cath (Intra- Procedure), Routine iohexol (OMNIPAQUE) 350 mg/mL solution (CANCELED) 0911 (Given - Provider: Mere Abbasi MD) ONCE PRN, Starting 02/15/19 at 0911, Until 02/15/19 at 0913, Cath (Intra- Procedure), Routine iohexol (OMNIPAQUE) 350 mg/mL solution (CANCELED) 1643 (Given - Provider: Mere Abbasi MD) ONCE PRN, Starting 02/16/19 at 1643, Until 02/16/19 at 1733, Cath (Intra- Procedure), Routine midazolam (PF) (VERSED) multi-dose injection (CANCELED ) 0811 (Given - Provider: Bryce Duggan)0839 (Given - Provider: Bryce Dugagn) ONCE PRN, Starting 02/15/19 at 0811, Until Fri02/15/19 at 0913, Cath (Intra- Procedure), Routine midazolam (PF) (VERSED) multi-dose injection (CANCELED) 1459 (Given - Provider: Igor Ho, RN)1628 (Given - Provider: Igor Ho, LONNIE) ONCE PRN, Starting Tu02/16/19 at 1459, Until Tu02/16/19 at 1733, Cath [...] ONCE PRN, Starting 02/15/19 at 0819, Until Fri02/15/19 at 0913, Cath (Intra- Procedure), Routine nitroGLYcerin 100 mcg/mL intracoronary dilution (CANCELED) 1531 (Given - Provider: Mere Abbasi MD)1554 (Given - Provider: Mere Abbasi MD) ONCE PRN, Starting Tu02/16/19 at 1531, Until Tu02/16/19 at 1733, Cath (Intra- Procedure), Routine sodium chloride 0.9% infusion (COMPLETED) 1541 (New Bag - Provider: Ruby Vital, LONNIE) CONTINUOUS PRN, Starting Fri02/16/19 at 1541, Until Discontinued, Cath (Intra-Procedure) verapamil (ISOPTIN) injection (CANCELED) 08 (Given - Provider: Diego Meade) ONCE PRN, Starting Fri02/15/19 at 0819, Until Fri02/15/19 at 0913, Administer over 2 Minutes, Cath (Intra-Procedure) verapamil (ISOPTIN) injection (CANCELED) 153 (Given - Provider: Mere Abbasi MD) ONCE PRN, Starting Fri02/16/19 at 1531, Until Fri02/16/19 at 1733, Administer over 2 Minutes, Cath (Intra-Procedure) documented in this encounter Care Teams [employer] Relationship Specialty Start Date End Date Quin Rojas MD PCP - General 04/03/[address] [place] [address] documented as of this encounter
--- OUTSIDE RECORDS SUMMARY | 2022-03-08 01:59 | XMS_ITS | Encounter Summary ---
:1945 Author Organization [facility] [place] [address] Care Team Providers Name Role Phone Quin Rojas MD Primary Care Provider Reason for Visit Reason Comments Follow-up palpitations, med check Encounter Details Date Type Department Care Team Description 12/07/2018 Office Visit Cardiology at Patrice Burkett, Atheroscl erosis of [place] JIMENEZ [place] coronary artery [address] [facility] stable angina pectoris [place] [phone] Social History Tobacco Use Types Packs/Day Years Used Date Never Smoker Smokeless Tobacco: Never Used Alcohol Use Standard Drinks/Week Comments No 0 (1 standard drink = 0.6 oz pure alcoho l) occ Alcohol Habits Answer Date Recorded How often do you have a drink containing alcohol? Monthly or less 02/13/2019 How many drinks containing alcohol do you have on a 1 or 2 02/13/2019 typical day when you are drinking? How often do you have six or more drinks on one Never 02/13/2019 occasion? Comment: occ 01/31/2015 Sex Assigned at Date Recorded Not on file documented as of this encounter Last Filed Vital Signs Vital Sign Reading Time Taken Comments Blood Pressure - - Pulse 76 12/07/2018 4:15 PM EDT Temperature - - Respiratory Rate 20 12/07/2018 4:15 PM EDT Oxygen Saturation - - Inhaled Oxygen Concentration - - Weight - - Height - - Body Mass Index - - documented in this encounter Progress Notes Patrice Burkett MD - 12/07/2018 3:40 PM EDT Subjective: Patient ID: Albina Thopmson is a 73 y.o. female. Chief Complaint Patient presents with ??? Follow-up palpitations, med check HPI 73 F presents for f/u of stable angina. Last seen by Dr Barclay earlier this month. Since that time, she has continued with CCS II-III angina (light walks, moderate weight carrying, etc), and in fact it has become a bit more in severity. She uses a GTN 1-2 times a week. The chest heaviness will go away in 15 minutes with rest, 5 minutes with GTN. This is her typical angina symptom. Denies dyspnea, palpitations, lh/syncope, orthopnea/pnd. She is no longer taking norvasc because this was thought to have caused the diarrhea. Review of Systems 11 point ros either negative or per hpi Allergies Allergen Reactions ??? Iodine And Iodide Containing Products ??? Percocet [Oxycodone-Acetaminophen] Other (See Comments) All pain medications ??? Pneumax [Phenylephrine-Guaifenesin] Rash Swelling ??? Persantine [Dipyridamole] ??? Povidone-Iodine ??? Shellfish Derived crushing chest pain ??? Simvastatin myalgia ??? Thallium-201 Current Outpatient Medications Medication Sig Dispense Refill ??? VENTOLIN HFA 90 mcg/actuation HFA Aerosol Inhaler Inhale 2 puffs into the lungs 2 times daily asneeded. 1 ??? losartan (COZAAR) 100 mg Tablet Take 100 mg by mouth daily. ??? metoprolol succinate (TOPROL-XL) 25 mg Tablet Sustained Release 24 hr Take 1 tablet by mouth daily. 90 tablet 3 ??? nitroGLYcerin (NITROSTAT) 0.4 mg Tablet, Sublingual Place 1 tablet under the tongue every 5 minutes as needed for Chest pain. 90 tablet 3 ??? vit A/C/E ac/ZnOx/cupric oxide (EYE VITAMIN AND MINERALS ORAL) Take 1 capsule by mouth daily. ??? fluticasone (FLONASE) 50 mcg/actuation [place], Suspension 2 sprays by Each Nare route nightly. ??? cyclobenzaprine (FLEXERIL) 5 mg Tablet Take 5 mg by mouth 3 times daily as needed for Muscle spasms. ??? cycloSPORINE (RESTASIS) 0.05 % Dropperette 1 drop 2 times daily. ??? rosuvastatin (CRESTOR) 5 mg Tablet Take 5 mg by mouth nightly. ??? aspirin 81 mg Tablet, Delayed Release (E.C.) Take 81 mg by mouth daily. ??? cholecalciferol, Vitamin D3, (CHOLECALCIFEROL, VITAMIN D3,) 2,000 unit Capsule Take 2,000 Units by mouth 2 times daily. ??? ibuprofen (ADVIL;MOTRIN) 200 mg Tablet Take 600 mg by mouth every 6 hours as needed for Pain. ??? ubiquinone (COENZYME Q10) 10 mg Capsule [...] mcg tablet 75mcg, PO, Once daily ??? isosorbide mononitrate (IMDUR) 30 mg Tablet Sustained Release 24 hr Take 1 tablet by mouth everymorning. 30 tablet 1 ??? albuterol (PROVENTIL) 2.5 mg /3 mL (0.083 %) Solution for Nebulization Take 2.5 mg by nebulization every 4 hours as needed for Wheezing. No current facility-administered medications for this visit. Patient Active Problem List Diagnosis ??? Hypothyroidism ??? Essential hypertension ??? Coronary atherosclerosis of [place] coronary artery 2005: 2 stents to mid LAD and stent to osteal D2 (bifurcation lesion) at [facility] 01/2018- ST II, HR 126, BP 203/72, CP, 1 mm inf and lat ST depressions, normal perfusion and wall notion ??? Asthma ??? Hyperlipidemia ??? Posterior tibial tendon dysfunction ??? Ocular rosacea Objective: Physical Exam Pulse 76 Resp 20 LMP (LMP Unknown) General : pleasant female in NAD Cor: rrr, s1/s2 of nl character and amplitude, no mrg. jvp not elevated. Carotids without bruit Pulm: ctab Ab: soft, nt, nd Ext: no cce. Dp/pt ++ Neuro: without focal deficit EKG: NSR. No e/o ischemia/infarct Assessment and Plan: # CAD s/p PCI 2004, stable angina currently: Because of her known disease, the time since last PCI, her typical symptoms, and on reasonable medical therapy, it is reasonable to proceed with cath. She was hesitate to proceed with this because she had access site bleeding in 2004. However, she would like to resume typical activities, and I doubt medical therapy alone will do it. She would like to schedule the cath in February. In the interim, will start low-dose imdur. She knows to call if chest heaviness symptoms worsen or fail to improve RTC 1 month Patrice Burkett MD documented in this encounter Plan of Treatment Upcoming Encounters Date Type Specialty Care Team Description 09/02/2022 Office Visit Cardiology Patrice Burkett MD [facility] [address] [place] [address] (Wo rk) 11/25/2022 Office Visit Dermatology Kole Mccain MD [address] [facility] DERMATOLOGY [place], [place] [address] (Wo rk) documented as of this encounter Procedures Procedure Name Priority Date/Time Associated Diagnosis Comme nts EKG 12-LEAD Routine 12/07/2018 4:25 PM Results f or this EDT procedure are i n the results section . documented in this encounter Results EKG 12 Lead (12/07/2018 4:25 PM EDT) Component Value Ref Range Test Analysis Performed Pathologis t Method Time At Signature Ventricular rate 76 BPM MUSE SYSTEM Atrial Rate 76 BPM MUSE SYSTEM P-R Interval 164 ms MUSE SYSTEM QRS Duration 86 ms MUSE SYSTEM Q-T Interval 368 ms MUSE SYSTEM QTC Calculated 414 ms MUSE SYSTEM (Bezet) Calculated P [place] 53 degrees MUSE SYSTEM Calculated R [place] 37 degrees MUSE SYSTEM Calculated T [place] 56 degrees MUSE SYSTEM INTERPRETATION Normal sinus rhythm MUSE SYSTEM Normal ECG When compared with ECG of 17-DEC-2004 13:55, No significant change was found Confirmed by MD Burkett Daniel ([id number]) on 12/10/2018 3:24:37 PM Specimen Anatomical Collection Method Collection Time Receive d Time (Source) Location / / Volume Laterality 12/07/2018 4:25 PM 9 3:24 EDT PM EDT Unknown ECG ORDERABLES Performing Organization Address City/State/ZIP Code Phon e Number MUSE SYSTEM documented in this encounter Visit Diagnoses Diagnosis Atherosclerosis of [place] coronary arter y of [place] heart with stable angina pectoris documented in this encounter Care Teams Dope Weigh Operator Relationship Specialty Start Date End Date Quin Rojas MD PCP - General 04/03/[address] [place] [address] documented as of this encounter
--- OUTSIDE RECORDS SUMMARY | 2022-03-08 01:59 | XMS_ITS | Encounter Summary ---
:1945 Author Organization [facility] [place] [address] Care Team Providers Name Role Phone Quin Rojas MD Primary Care Provider Encounter Details Date Type Department Care Team Description 02/12[facility] [address] [place] [address] Social History Tobacco Use Types Packs/Day Years Used Date Never Smoker Smokeless Tobacco: Never Used Alcohol Use Standard Drinks/Week Comments No 0 (1 standard drink = 0.6 oz pure alcoho l) [facility] Alcohol Habits Answer Date Recorded How often [...] Office Visit Cardiology Patrice Burkett MD [facility] [address] [place] [address] (Wo rk) 11/25/2022 Office Visit Dermatology Kole Mccain MD [address] [facility] DERMATOLOGY [place], [place] [address] (Wo rk) documented as of this encounter Visit Diagnoses Not on filedocumented in this encounter Care Teams Logging Tractor Operator Relationship Specialty Start Date End Date Quin Rojas MD PCP - General 04/03/[address] [place] [address] documented as of this encounter
--- OUTSIDE RECORDS SUMMARY | 2022-03-08 01:59 | XMS_ITS | Encounter Summary ---
:1945 Author Organization [facility] [place] [address] Care Team Providers Name Role Phone Quin Rojas MD Primary Care Provider Encounter Details Date Type Department Care Team Description 02/12/2019 Orders Only Cardiology at Patrice Burkett, Atheroscl erosis of [facility] coronary artery of [address] stable angina [facility] Dr [place] [phone] Social History Tobacco Use Types [...] encounter Progress Notes Patrice Burkett MD - 02/12/2019 10:47 AM EDT Patient continues with angina, and has decided she wishes to proceed with cath, as discussed in prior encounter 01/04/2019 Patrice Burkett MD documented in this encounter Plan of Treatment Upcoming Encounters Date Type Specialty Care Team Description 09/02/2022 Office Visit Cardiology Patrice Burkett MD [facility] [address] [place] [address] (Wo rk) 11/25/2022 Office Visit Dermatology Kole Mccain MD [address] [facility] DERMATOLOGY [place], [place] [address] (Wo rk) documented as of this encounter Procedures Procedure Name Priority Date/Time Associated Diagnosis Comme nts CARDIAC Routine 02/18/2019 11:24 Atherosclerosis of Resul ts for this CATHETERIZATION AM EDT [place] coronary artery pr ocedure are in of [place] heart with the res ults stable angina pectoris secti on. documented in this encounter Results CARDIAC CATHETERIZATION (02/18/2019 11:24 AM EDT) Anatomical Region Laterality Modality Other Specimen (Source) Anatomical Location Collection Method / Collectio n Time Received Time / Laterality Volume Narrative 02/16/2019 7:34 AM EDT ?[facility] ? Cardiac Cathete rization/Intervention Report ? Patient Name: Albina Thompson ? Procedure Date: 02/15/2019 ? A #: [id number] ? Primary Physician: Coylewrgillian, Laura J ? Case #: [id number] ? File Name: [id number] ? Catheterization Order Number: [id number] ? [facility] ? Final Report [place], [place] ? Patient Name: ? Albina R. Hemo nd ? ID#: ?[id number] ? : ?1945 ? Procedure Date: ? February 15, 2019 ?Case #: ? [id number] ? Room: ? 5 ? Case Physician: ? Laura french M.D. ?Start: ?08:19 ?Fellow: ? Diego melendez M.D. ? Admission: ??02/13/2019 ? Referring Physician: ??Quin Rojas M.D. ? [...] ? LV ejection fraction wit hin 6 months. ?Electrocardiography: ? EKG was assessed by ECG. EKG was Abnormal. EKG showed ST Deviation ? >= 0.5 mm. ?Medications Prior to Procedure: ? ASA, Beta Cedrick and St atin. ? Indications for Diagnostic Cath: ?The priority of the diagnostic procedure was Urgent. The indication for ?the track repair laborer visit is ACS great er than 24 [...] presen t for the entire procedure. ?Dr. Laura J Coylewright, M.D. was present during the moderate sedation ?intraservice time as documented by the sedation nurse. ??Case time = 00:51. ?Dr. Laura Abbasi M.D. perf ormed the coronary angiography, left ?heart catheterization and IFR-arturo nary. ? Laura Abbasi, ? M.D. ? Electronically Signed by: Laura cortez M.D. ? Report Finalized: 02/16/2019 ??07:30 ? Report Last Ammended: 02/18/2019 ??11:20 ? Procedure Note Laura Abbasi MD - 02/18/2019For matting of this note might be different from the original. [facility] Cardiac Catheterization/Intervention Re port Patient Name: Albina ThompsonBety Procedure Date: 02/15/2019 A #: [id number] Primary Physician: Laura Abbasi Case #: [id number] File Name: [id number] Catheterization Order Number: [id number] [facility] Final Report [place], [place] Patient Name: Albina Thompson ID#: [id number] : 1945 Procedure Date: February 15, 2019 Case #: [id number] Room: 5 Case Physician: Jeanna Nicole Start: 08:19 Fellow: Diego Meade M.D. Admissio n: 02/13/2019 Referring Physician: Quin Rojas M.D. Procedures: * [...] was designated as ASA Class III. The [facility] clinical frailty scale is 4: Vulnerable. Diagnostic Tests: Prior Coronary Angiography: LV ejection fraction within 6 months. Electrocardiography: EKG was assessed by ECG. EKG was Abnorm al. EKG showed ST Deviation >= 0.5 mm. Medications Prior to Procedure: ASA, Beta Cedrick and Statin. Indications for Diagnostic Cath: The priority of the diagnostic procedur e was Urgent. The indication for the track repair laborer visit is ACS greater than 24 hrs. [...] LCX) * Recommend shared decision making appr [facility] for PCI v CABG. We will meet with patient and her this after noon. Complications/Events: The patient had no complications during these procedures. Comments: Syntax score calculated: 15 Syntax II score for PCI: 31.8 (7.9% 4 y ear mortality) Syntax II score for CAB.7 (4.8% 4 year mortality). The attending physician was present for the entire procedure. Dr. Laura Abbasi M.D. was prese nt during the moderate sedation intraservice time as documented by the sedation nurse. Case time = 00:51. Dr. Laura Abbasi M.D. performed the coronary angiography, left heart catheterization and IFR-coronary. Laura Abbasi M.D. Electronically Signed by: Laura cortez M.D. Report Finalized: 02/16/2019 07:30 Report Last Ammended: 02/18/2019 11:20 Patrice Burkett MD CARDIAC CATH ORDERABLES documented in this encounter Visit Diagnoses Diagnosis Atherosclerosis of [place] coronary arter y of [place] heart with stable angina pectoris Atherosclerosis of [place] coronary arter y of [place] heart with stable angina pectoris documented in this encounter Care Teams Pig Machine Operator Helper Relationship Specialty Start Date End Date Quin Rojas MD PCP - General 04/03/[address] [place] [address] documented as of this encounter
--- OUTSIDE RECORDS SUMMARY | 2022-03-08 01:59 | XMS_ITS | Encounter Summary ---
:1945 Author Organization [facility] [place] [address] Care Team Providers Name Role Phone Quin Rojas MD Primary Care Provider Reason for Visit Reason Comments Procedure Encounter Details Date Type Department Care Team Description 09/11/2012 Office Visit Dermatology Kole Mccain, Inflamed seborrheic [address] [facility] keratosis (Primary [address] [facility] [address]) [place], [place] DERMATOLOGY [address] [place] [address] [phone] (Wo rk) Social History Tobacco Use Types Packs/Day Years Used Date Never Smoker Alcohol Habits Answer Date Recorded How often do you have a drink containing alcohol? Monthly or less 02/13/2019 How many drinks containing alcohol do you have on a 1 or 2 02/13/2019 typical day when you are drinking? How often do you have six or more drinks on one Never 02/13/2019 occasion? Comment: Not asked Sex Assigned at Date Recorded Not on file documented as of this encounter Progress Notes Kole Mccain MD - 09/11/2012 3:50 PM EDT Problem: Irritated seborrheic keratosis, left anterior shoulder. Albina follows up to have a lesion removed from her left anterior shoulder. It is often rubbed and irritated. It has also changed color. Physical examination reveals a seborrheic keratosis with some central hyperpigmentation. It is often rubbed by her bra strap. There is no sign of erythema or induration. Assessment and Plan: 1. Seborrheic keratosis, inflamed, changing. a. Today, after obtaining informed consent, site was anesthetized and removed with light shave biopsy. b. Triple antibiotic ointment and Band-Aid placed. c. Smaller billy-k also removed from near right [facility]. d. Return to clinic here p.r.n. for new lesions/concerns. e. Will notify patient of biopsy results when these are available within a week. COPY: Quin Rojas M.D. documented in this encounter Procedure Notes Provider, Scanning - 09/18/2012 2:24 PM EDTAssociated Order(s): SCAN DOC: SURGICAL PATHOLOGY documented in this encounter Plan of Treatment Upcoming Encounters Date Type Specialty Care Team Description 09/02/2022 Office Visit Cardiology Patrice Burkett MD [facility] [address] [place], [place] [address] (Wo rk) 11/25/2022 Office Visit Dermatology Kole Mccain MD [address] [place] [address] DERMATOLOGY [place], [place] [address] (Wo rk) documented as of this encounter Procedures Procedure Name Priority Date/Time Associated Diagnosis Comme nts SURGICAL PATHOLOGY 09/18/2012 2:24 PM Res ults for this SCAN EDT procedure are i n the results section. documented in this encounter Results SCAN DOC: SURGICAL PATHOLOGY (09/18/2012 2:24 PM EDT) Narrative 09/18/2012 2:24 PM EDT Procedure Note Provider, Scanning - 09/18/2012 2:24 PM EDT Scanning Provider MEDIA MGR SCAN EXT ORDR/RSLT documented in this encounter Visit Diagnoses Diagnosis Inflamed seborrheic keratosis - Primary documented in this encounter Care Teams Plunket Nurse Relationship Specialty Start Date End Date Quin Rojas MD PCP - General 04/03/[address] [place] [address] documented as of this encounter
--- OUTSIDE RECORDS SUMMARY | 2022-03-08 01:59 | XMS_ITS | Encounter Summary ---
:1945 Author Organization [facility] [place] [place] [address] Care Team Providers Name Role Phone Quin Rojas MD Primary Care Provider Reason for Referral Diagnostic Test (Routine) - Closed Specialty Diagnoses / Procedures Referred By Contact Refer red To Contact Diagnoses Chest pain, unspecified type ASCVD (arteriosclerotic cardiovascular disease) [facility] Jr., MD Procedures NM Exercise Stress Myocardial Perfusion [address] [place] [place] [address] Referral ID Status Reason Start Date Expiration Date Visits V isits Requested Authorized [id number] Closed Specialty 01/01/2018 06/30/2018 1 1 Service Requested Reason for Visit Reason Comments Establish Care Used to see Dr. Tran. Flowers d stents X3 in 2005, Having chest tightness that has increased recently, not related to exertion. Also B/P has been up Consultation (Routine) - Closed Specialty Diagnoses / Procedures Referred By Contact Refer red To Contact Cardiology Diagnoses ATHEROSCLEROSIS OF [place] CORONARY ARTERY Quin Rojas MD Pollak, Emil M Jr., MD [address] [place], [place] [address] [address] [place] [address] Phone: Fax: Referral ID Status Reason Start Date Expiration Date Visits V isits Requested Authorized [id number] Closed Consult, 10/28/2017 10/28/2018 1 1 [facility] Encounter Details Date Type Department Care Team Description 01/01/2018 Office Visit Cardiology at [facility] Chest pain, unspecified type; Barak Del Valle MD ASCVD (arteriosclerotic cardiovascular d isease); [address] [facility] Athe rosclerosis of blackfeet coronary artery of blackfeet heart with stable angina pectoris [place] [id number] [phone] Social History Tobacco Use Types Packs/Day Years [...] Sign Reading Time Taken Comments Blood Pressure 150/78 01/01/2018 8:38 AM EDT Pulse 70 01/01/2018 8:38 AM EDT Temperature - - Respiratory Rate - - Oxygen Saturation - - Inhaled Oxygen Concentration - - Weight 71.7 kg (158 lb) 01/01/2018 8:38 AM EDT Height 157.5 cm (5' 2) 01/01/2018 8:38 AM EDT Body Mass Index 28.9 01/01/2018 8:38 AM EDT documented in this encounter Progress Notes [facility] Jr., MD - 01/01/2018 8:20 AM EDT Referring PCP: Quin Rojas MD Cardiology consultation History: Alma Thompson is a 72 y.o. old female seen at the request of Quin Rojas MD for evaluation of chest discomfort and HTN. She has had intermittent atypical chest pain since her stents in 2004. Her last stress test was in 2009. For the last 3 months she has had chest tightness and pain when standing using her arms or when carrying anything walking. She has not had it when walking at her own pace without carrying anything. She does not feel her dyspnea is any worse. She denies palpitations, dizziness, or edema. Her blood pressure has been more variable, often over 160/100. Allergies Allergen Reactions ??? Iodine And Iodide Containing Products ??? Percocet [Oxycodone-Acetaminophen] Other (See Comments) All pain medications ??? Pneumax [Phenylephrine-Guaifenesin] Rash Swelling ??? Persantine [Dipyridamole] ??? Povidone-Iodine ??? Shellfish Derived crushing chest pain ??? Simvastatin myalgia ??? Thallium-201 Current Outpatient Prescriptions Medication Sig Dispense Refill ??? fluticasone (FLONASE) 50 mcg/actuation [place], Suspension 2 sprays by Each Nare route nightly. ??? ALBUTEROL INHL Inhale 1-2 puffs into the lungs as needed. ??? lutein 20 mg Tablet Take 1 tablet by mouth daily. ??? cyclobenzaprine (FLEXERIL) 5 mg Tablet Take 5 mg by mouth 3 times daily as needed for Muscle spasms. ??? atenolol (TENORMIN) 25 mg Tablet Take 12.5 mg by mouth daily. ??? cycloSPORINE (RESTASIS) 0.05 % Dropperette 1 drop 2 times daily. ??? albuterol (PROVENTIL) 2.5 mg /3 mL (0.083 %) Solution for Nebulization Take 2.5 mg by nebulization every 4 hours as needed for Wheezing. ??? losartan (COZAAR) 50 mg Tablet Take 50 mg by mouth daily. ??? rosuvastatin (CRESTOR) 5 mg Tablet Take 2.5 mg by mouth daily. ??? aspirin 81 mg Tablet, Delayed Release (E.C.) Take 81 mg by mouth daily. ??? cholecalciferol, Vitamin D3, (CHOLECALCIFEROL, VITAMIN D3,) 2,000 unit Capsule Take 2,000 Units by mouth daily. ??? ibuprofen (ADVIL;MOTRIN) 200 mg Tablet Take 600 mg by mouth every 6 hours as needed for Pain. ??? ubiquinone (COENZYME Q10) 10 mg Capsule Take 100 mg by mouth daily. ??? VITAMIN B-12 1,000 mcg Tablet Take 1,000 mcg by mouth daily. 1 ??? ADVAIR DISKUS 250-50 mcg/dose Disk with Device Inhale 1 puff into the lungs 2 times daily. 0 ??? montelukast (SINGULAIR) 10 mg Tablet Take 10 mg by mouth nightly. 1 ??? ranitidine (ZANTAC) 150 mg Tablet Take 150 mg by mouth 2 times daily. 1 ??? levothyroxine (SYNTHROID) 75 mcg tablet 75mcg, PO, Once daily ??? nitroGLYcerin (NITROSTAT) 0.4 mg SL tablet 0.4MG, Sublingual, as directed No current facility-administered medications for this visit. Patient Active Problem List Diagnosis ??? Hypothyroidism ??? Essential hypertension ??? Coronary atherosclerosis of blackfeet coronary artery 2005: 2 stents to mid LAD and stent to osteal D2 (bifurcation lesion ??? Asthma ??? Hyperlipidemia ??? Posterior tibial tendon dysfunction ??? Rosacea Coronary risk factors: Smoking: never Diabetes:no Hypercholesterolemia:yes Hypertension:yes Family history of premature disease:yes, multiple family members with CAD Family History Problem (# of Occurrences) Relation (Name,Age of Onset) Asthma (1) Mother Heart Disease (6) Father, Sister, Brother, Maternal Grandfather, Paternal Grandmother, Paternal Grandfather Hyperlipidemia (3) Father, Maternal Grandfather, Paternal Grandfather Hypertension (5) Mother, Father, Brother, Maternal Grandfather, Paternal Grandfather Myocardial Infarction (1) Father Negative family history of: Cancer Cardiac tests: Holter 2013- unremarkable Social History Social History ??? Marital status: Spouse name: N/A ??? Number of children: N/A ??? Years of education: N/A Occupational History ??? Not on file. Social History Main Topics ??? Smoking status: Never Smoker ??? Smokeless tobacco: Never Used ??? Alcohol use No Comment: occ ??? Drug use: No ??? Sexual activity: Not on file Other Topics Concern ??? Not on file Social History Narrative Busy with family ROS: no recent weight gain/loss, PFT 2013- normal, denies other issues Physical Exam: BP 150/78 (BP Location (NBP): Right arm, Patient Position: Sitting) Pulse 70 Ht 157.5 cm (5' 2) Wt 71.7 kg (158 lb) BMI 28.9 kg/m2 General: WD, WN Skin: no rash HEENT: no xanthoma Neck: No JVD, HJR, or carotid abnormalities, thyroid benign Lungs: Clear Cor: RR, normal S1, S2. PMI not displaced. No murmur or gallop Abd: soft, no L/S/K enlargement or bruits Ext: Pulses preserved, equal bilaterally, no edema, cyanosis or clubbing Musculoskeletal: no muscle tenderness, no joint deformities Neuro: grossly nonfocal Psych: normal affect, appropriate EKG: NSR 70, normal Lab data: Results for ALMA THOMPSON ( ) as of 01/05/2018 20:48 Ref. Range 03/10/2017 00:00 Chol, Total Unknown 180 HDL Unknown 64 Triglycerides Unknown 114 LDL Cholesterol Unknown 91 Assessment: 1) atypical CP but history of CAD- she should have an exercise MIBI holding her beta renan for 24 hours to assess for ischemia. She claims she has had problems with chemical stress tests in the past-but I have no record of that 2) BP borderline- assess response to exertion with MIBI 3) lipids- fair numbers- high HDL compensated for less than ideal LDL Plan: 1) A discussion was held concerning the patient's chief complaints, the presumptive diagnosis(es) and the options for further evaluation and management. Reviewed the assessment above and the recommendations below in detail. 2) medical therapy unchanged pending MIBI 3) follow up depends on the result documented in this encounter Plan of Treatment Upcoming Encounters Date Type Specialty Care Team Description 09/02/2022 Office Visit Cardiology Patrice Burkett MD [facility] [address] [place] [address] ([place]) 11/25/2022 Office Visit Dermatology Kole Mccain MD [address] [place] [address] DERMATOLOGY [place], [place] [address] (Wo rk) documented as of this encounter Procedures Procedure Name Priority Date/Time Associated Diagnosis Comme nts ECG SCAN 01/06/2018 12:00 AM Results for this EDT procedure are i n the results section . documented in this encounter Results NM Exercise Stress Myocardial Perfusion (01/22/2018) Anatomical Region Laterality Modality Other Narrative 01/22/2018 MIBI Exercise Stress Test- Final Report ?? Alma Piedra Jay : 1945 [facility], [address] [place] [id number] Primary Physician: ??Quin Rojas MD ??Indication: chest pain Date: 01/22/2018 Summary: Max Exercise: ??4:45, 1:45 ??Stage II ?? Demetrius ?? 7 ?? METS Max HR: ? 126> 85 % PMR(124) Max BP: ??203/[address] change: ??1 mm up sloping 2,3,F, V5-6 Reason for Termination: chest pain, fati abdoulaye Imaging: ??Normal perfusion and wall mot ion ??EF 68 % Impression: fair exercise tolerance, no ischemia at low point of meds Details: Medication: off atenolol 36 hours Risk Factors: ??Known ASCVD Resting EKG: NSR 78, normal ?Resting BP: 173/79 Exercise per Demetrius protocol Arrhythmias: VPCs in recovery, given NTG X 1 Recovery: ??BP ?? -> ?? 188/63 ?HR ? ? -> 100 Rest Images: 27.8 mC MIBI, Spect-normal Stress Images: ??10 mC MIBI, Spect-nikolay l Electronically signed: ??Moose piedra MD FAC ??Date: 01/22/2018 [facility] Jr., MD IM NM ORDERABLES SCAN DOC: ECG (01/06/2018 12:00 AM EDT) Narrative 01/06/2018 12:00 AM EDT This result has an attachment that is no t available. Ordered by an unspecified provider. Scanning Provider MEDIA MGR SCAN EXT ORDR/RSLT documented in this encounter Visit Diagnoses Diagnosis Chest pain, unspecified type ASCVD (arteriosclerotic cardiovascular d isease) Unspecified cardiovascular disease Atherosclerosis of blackfeet coronary arter y of blackfeet heart with stable angina pectoris Chest pain, unspecified type ASCVD (arteriosclerotic cardiovascular d isease) Unspecified cardiovascular disease documented in this encounter Care Teams Extract Wringer Relationship Specialty Start Date End Date Quin Rojas MD PCP - General 04/03/[address] [place] [address] documented as of this encounter
--- OUTSIDE RECORDS SUMMARY | 2022-03-08 01:59 | XMS_ITS | Encounter Summary ---
:1945 [place] [address] Care Team Providers Name Role Phone Quin Rojas MD Primary Care Provider Encounter Details Date Type Department Care Team Description 04/19/2013 Ancillary Procedure Radiology Library at Quin Biggs MD [facility] [id number] [place] [address] (Wo rk) [phone] Social History Tobacco Use Types Packs/Day Years [...] Cardiology Patrice Burkett MD [facility] [address] [place] [address] (Wo rk) 11/25/2022 Office Visit Dermatology Kole Mccain MD [address] [place] [address] DERMATOLOGY [place], [place] [address] (Wo rk) documented as of this encounter Procedures Procedure Name Priority Date/Time Associated Diagnosis Comme nts FILM LIBRARY Routine 04/19/2013 12:00 AM Results for this STORAGE ONLY MAMMO EST procedure are in the results section. documented in this encounter Results Film Library- Storage Only Mammo (04/19/2013 12:00 AM EST) Specimen (Source) Anatomical Location Collection Method / Collectio n Time Received Time / Laterality Volume Narrative [facility] - 02/29/2020 10:49 AM EDT This exam is auto-finalizing. It's purpo se is for storage only. Quin Rojas MD IMG FILM LIBRARY ORDERABLES Performing Organization Address City/State/ZIP Code Phon e Number [place], [place] documented in this encounter Visit Diagnoses Not on filedocumented in this encounter Care Teams Fabric Sourcer Relationship Specialty Start Date End Date Quin Rojas MD PCP - General 04/03/[address] [place] [address] documented as of this encounter
--- OUTSIDE RECORDS SUMMARY | 2022-03-08 01:59 | XMS_ITS | Encounter Summary ---
:1945 [place] [address] Care Team Providers Name Role Phone Quin Rojas MD Primary Care Provider Reason for Visit Reason Onset Date Comments Medication Refill 12/07/2018 Encounter Details Date Type Department Care Team Description 12/07/2018 Refill Cardiology at [facility] Patrice Burkett MD Medication Refill [address] [place] [address] [place] [address] (Wo rk) Social History Tobacco [...] Telephone Encounter - Liv Luis RN - 12/07/2018 5:19 PM EDT Rx. For isosorbide called in to Alex [facility]cd[facility] in [facility] documented in this encounter Plan of Treatment Upcoming Encounters Date Type Specialty Care Team Description 09/02/2022 Office Visit Cardiology Patrice Burkett MD [facility] [place] [address] (Wo rk) 11/25/2022 Office Visit Dermatology Kole Mccain MD [address] [place] [address] DERMATOLOGY [place], [place] [address] (Wo rk) documented as of this encounter Visit Diagnoses Not on filedocumented in this encounter Care Teams Interpreter For The Deaf Relationship Specialty Start Date End Date Quin Rojas MD PCP - General 04/03/[address] [place] [address] documented as of this encounter
--- OUTSIDE RECORDS SUMMARY | 2022-03-08 01:59 | XMS_ITS | Encounter Summary ---
:1945 Author Organization [facility] [place] [address] Care Team Providers Name Role Phone Quin Rojas MD Primary Care Provider Reason for Visit Auth/Cert Specialty Diagnoses / Procedures Referred By Contact Refer red To Contact Diagnoses Angina at rest [place] Referral ID Status Reason Start Date Expiration Date Visits Requ ested Visits Authorized [id number] 1 1 Encounter Details Date Type Department Care Team Description 02/15/2019 Surgery Angiographer Darrel Perkins CARDIAC CATHETERIZATION [facility] MD Emma [facility] [place] [address] CARDIOLOGY DEPT [phone] [place], [place] [address] (Wo rk) Social History Tobacco [...] Sign Reading Time Taken Comments Blood Pressure 165/78 02/15/2019 8:20 AM EDT Pulse 88 02/15/2019 8:20 AM EDT Temperature 36.8 ??C (98.2 ??F) 02/15/2019 7:26 AM EDT Respiratory Rate 18 02/15/2019 8:00 AM EDT Oxygen Saturation 92% 02/15/2019 8:20 AM EDT Inhaled Oxygen Concentration - - Weight 68.5 kg (151 lb 0.2 oz) 02/15/2019 7:00 AM EDT Height 154.9 cm (5' 1) 02/13/2019 2:38 PM EDT Body Mass Index 28.53 02/13/2019 2:38 PM EDT documented in this encounter Discharge Summaries Kiley Buchanan APRN - 02/14/2019 1:45 PM EDT Images from the original note were not included. Discharge Summary Patient Name: Albina Thompson Patient Age: 73 y.o. Language: Thai Race: White Ethnicity: Not nor Admit date: [...] Galarza APRN Amanda King, APRN Cardiovascular Medicine [phone] Discharge Diagnoses (Hospital Problems) and Secondary Diagnoses (Chronic Problems): Active Hospital Problems Diagnosis ??? Angina at rest ??? Coronary atherosclerosis of buckland coronary artery ??? Essential hypertension ??? Hyperlipidemia Resolved Hospital Problems No resolved problems to display. Active Non-Hospital Problems Diagnosis ??? Hypothyroidism ??? Asthma ??? Posterior tibial tendon dysfunction ??? Ocular rosacea Operations/Major Procedures: Cardiac cath 02/16/19: final report pending ?? [facility] Operative Note ?? Patient Name:??Albina Thompson?:??[id number]?MR#:??[id number] ?? Case Date:??02/16/2019 ?? Surgeon:??Surgeon(s) and Role: [...] early complications. ?? Results discussed with referring line lead??Dr Burkett and Dr Hua, and with the [...] 2004), hypertension, hyperlipidemia, hypothyroidism who presented to [facility] today complaining of chest pressure that [...] pressure but not complete resolution. ?? At [facility] she had a single negative troponin. ECG [...] angiography. The patient went to the cardiac labeling machine operator for a diagnostic cath which showed multivessel [...] appointments: During 8am-5pm Friday through Friday call [phone] to speak with a nurse in the cardiology clinic All other times call [phone] and ask to speak to the field laborer associate consulting engineer. Driving: No driving for 48 hours after catheterization. Follow up Appointments: PCP Quin Rojas MD [phone] February 22, 2019 1:[address] Burkett March 17, 2019 at 11:30 arrival in [place] Future Appointments and Orders Future Appointments and Orders Future Appointments Provider Department Dept Phone 03/17/2019 11:40 AM Patrice Burkett MD Cardiology at [place] [place] Arrive at: [facility] [address] [phone] Future Orders Complete By Expires Referral to Cardiac Rehab [[id number] Custom] As directed Process Instructions: If no progress note charted, please enter Clinical details in comments. Scheduling Instructions: Questions: My question or request is: Pt will participate in cardiac rehab @ [facility] Discharge References/Attachments None Kiley Buchanan APRN Cardiovascular Medicine 02/17/2019 documented in this encounter Discharge Instructions Discharge InstructionsKiley Buchanan APRN - 02/17/2019 12:35 PM EDT Call your doctor if: Chest pain, shortness of breath, pain or swelling in legs occurs. If you have non-emergent questions between now and the time of your follow up appointments: During 8am-5pm Friday through Friday call [phone] to speak with a nurse in the cardiology clinic All other times call [phone] and ask to speak to the field laborer associate consulting engineer. Driving: No driving for 48 hours after catheterization. Follow up Appointments: PCP Quin Rojas MD [phone] February 22, 2019 1:[address] Burkett March 17, 2019 at 11:30 arrival in [place] documented in this encounter Medications at Time of Discharge Medication Sig Dispensed Refills Start Date End Date VENTOLIN HFA 90 Inhale 2 puffs into 1 11/25/2018 mcg/actuation HFA the lungs 2 times Aerosol Inhaler daily as needed. fluticasone (FLONASE) 50 2 sprays by Each Nare 0 mcg/actuation Lebeau, route nightly. Suspension cycloSPORINE (RESTASIS) 1 drop [...] Progress Note Patient Name: Albina Thompson Service: CREAMERY WORKER / PA Responsible Attending: John Hua MD Reason for continued hospitalization: Evaluation and management of accelerating angina Multivessel CAD - CT surgery consult S/p PCI to LAD and OM1, OM2 Active Problems: Active Hospital Problems Diagnosis ??? Angina at rest ??? Coronary atherosclerosis of buckland coronary artery 2005: 2 stents to mid LAD and stent to osteal D2 (bifurcation lesion) at [facility] 01/2018- ST II, HR 126, BP [...] procedures. Cardiac cath 02/16/19: final report pending [facility] Operative Note Patient Name: Albina Thompson : [id number] MR#: [id number] Case Date: 02/16/2019 Surgeon: Surgeon(s) and Role: [...] evident early complications. Results discussed with referring line lead Dr Burkett and Dr Hua, and with [...] the past 2 weeks. Ruled out for ID. Was sent for cardiac catheterization and found [...] Crestor 40 mg x 1 given at [place], patient has been taking Crestor 2.5 mg at home Crestor 5 mg ordered, to uptitrate as tolerated TC 170, HDL 77, LDL 86, Trig 51 ?? Hypothyroidism TSH was normal at [place] Continue levothyroxine 75 mcg daily DVT prophylaxis: early ambulation CODE STATUS: FULL CODE Discussed with MD Kiley Galarza APRN Cardiovascular Medicine 02/17/2019 Associated attestation - John Hua MD - 02/17/2019 8:06 PM EDT Cardiology Attending Addendum I shared this visit with Kiley Buchanan APRN and guided the medical decision-making. Nikos Martin - 02/16/2019 4:14 PM EDT Narrative:Visited in response to request for Account Classification Clerk services. Pt was awake, alert, oriented and [...] provided emotional, spiritual support and encouraging presence. Account Classification Clerk services accepted.Conversation to build trusting relationship.Provided prayer.Provided pastoral presence.Provided reli gious/sacramental rite. Follow up:yes Time; 25 Mins Kiley Buchanan APRN - 02/16/2019 8:53 AM EDT Inpatient Cardiology Progress Note Patient Name: Albina Thompson Service: CREAMERY WORKER / PA Responsible Attending: John Hua MD Reason for continued hospitalization: Evaluation and management of accelerating angina Multivessel CAD - CT surgery consult Planned PCI today Active Problems: Active Hospital Problems Diagnosis ??? Angina at rest ??? Coronary atherosclerosis of buckland coronary artery 2005: 2 stents to mid LAD and stent to osteal D2 (bifurcation lesion) at [facility] 01/2018- ST II, HR 126, BP [...] the past 2 weeks. Ruled out for ID. Was sent for cardiac catheterization and found [...] monitoring CT surgery consult appreciated NPO for [facility] wit planned PCI today Cardiac rehab consult following ?? Hypertension Continue losartan, metoprolol BP: (117-198)/(28-107) ?? Hyperlipidemia Normal LFTs with minimal alk phos at 110 (ULN 105) Crestor 40 mg x 1 given at [place], patient has been taking Crestor 2.5 mg at home Crestor 5 mg ordered TC 170, HDL 77, LDL 86, Trig 51 ?? Hypothyroidism TSH was normal at [place] Continue levothyroxine 75 mcg daily DVT prophylaxis: [...] Dr Hua. I also engaged her general line lead, Dr Burkett, who expressed a preference for [...] Progress Note Patient Name: Albina Thompson Service: CREAMERY WORKER / PA Responsible Attending: John Hua MD Reason for continued hospitalization: Evaluation and management of accelerating angina S/p cardiac catheterization Multivessel CAD - CT surgery consult Active Problems: Active Hospital Problems Diagnosis ??? Angina at rest ??? Coronary atherosclerosis of buckland coronary artery 2005: 2 stents to mid LAD and stent to osteal D2 (bifurcation lesion) at [facility] 01/2018- ST II, HR 126, BP 203/72, CP, 1 mm inf and lat ST depressions, normal perfusion and wall notion Norvasc led to diarrhea, Imdur to dizziness/hypotension ??? Essential hypertension ??? Hyperlipidemia Resolved Hospital Problems No resolved problems to display. Interval History: Returned to floor from labeling machine operator. Denies any current chest pain while resting [...] tartrate 12.5 mg Oral Q6H CAITLYN ??? [JUL Hold] ticagrelor 90 mg Oral [...] disease. Cardiac cath 02/15/2019: final report pending [facility] Operative Note ?? Patient Name: Albina Thompson : [id number] MR#: [id number] ?? Case Date: 02/15/2019 ?? Surgeon: Surgeon(s) [...] the past 2 weeks. Ruled out for ID. Was sent for cardiac catheterization today and [...] Crestor 40 mg x 1 given at [place], patient has been taking Crestor 2.5 mg at home Crestor 5 mg ordered TC 170, HDL 77, LDL 86, Trig 51 ?? Hypothyroidism TSH was normal at [place] Continue levothyroxine 75 mcg daily DVT prophylaxis: [...] Progress Note Patient Name: Albina Thompson Service: CREAMERY WORKER / PA Responsible Attending: John Hua MD Reason for continued hospitalization: Evaluation and management of accelerating angina Awaiting cardiac catherization Active Problems: Active Hospital Problems Diagnosis ??? Angina at rest ??? Coronary atherosclerosis of buckland coronary artery 2005: 2 stents to mid LAD and stent to osteal D2 (bifurcation lesion) at [facility] 01/2018- ST II, HR 126, BP [...] Infusions: ??? heparin (porcine) 900 Units/hr (02/14/19 0785) ??? nitroGLYcerin 20 mcg/min (02/14/19 0756) ??? sodium chloride 0.9% 50 mL/hr (02/13/19 4221) PRN Meds:heparin (porcine) AND heparin (porcine), acetaminophen, [...] the past 2 weeks. Ruled out for ID. Continue IV heparin and IV nitroglycerin. Anticipate [...] Crestor 40 mg x 1 given at [place], patient has been taking Crestor 2.5 mg at home Crestor 5 mg ordered TC 170, HDL 77, LDL 86, Trig 51 ?? Hypothyroidism TSH was normal at [place] Continue levothyroxine 75 mcg daily Discussed with MD Rick Galarza APRN 02/14/2019 Associated attestation - John Hua MD - 02/14/2019 3:08 PM EDT Cardiology Attending Addendum I shared this visit with Rick Mehta APRN, and guided the medical decision-making. Kole Nichole RN - 02/13/2019 2:57 PM EDT Patient arrived from [facility] no complaints of pain and no [...] Angina at rest ??? Coronary atherosclerosis of buckland coronary artery 2005: 2 stents to mid LAD and stent to osteal D2 (bifurcation lesion) at [facility] 01/2018- ST II, HR 126, BP [...] 2004), hypertension, hyperlipidemia, hypothyroidism who presented to [facility] today complaining of chest pressure that [...] chest pressure but not complete resolution. At [facility] she had a single negative troponin. ECG with PACs. Ticagrelor 180 mg x1, crestor 40 mg x 1 and aspirin 324 mg x 1 were administered. IV heparin was started. She arrives with 6-7/10 chest pressure substernally. Past Medical History: Past Medical History: Diagnosis Date ??? Asthma 12/05/2017 ??? Coronary atherosclerosis of buckland coronary artery 12/05/2017 ??? Essential hypertension 12/05/2017 ??? Hyperlipidemia 12/05/2017 ??? Hypothyroidism 12/05/2017 Surgical History/Problems: No past surgical history on file. Significant Family History: Family History Problem Relation Age of Onset ??? Hypertension Mother ??? Asthma Mother ??? Hypertension Father ??? Heart Disease Father ??? Hyperlipidemia Father ??? Myocardial Infarction Father ID at age 40 and at age 60 ??? Heart Disease Sister ??? Heart Disease Brother ID at 48 ??? Hypertension Brother ??? Hypertension [...] on file Occupational History ??? 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 Financial [...] file Gets together: Not on file Attends confucianist service: Not on file Active member of [...] file Social History Narrative Lives with in [place], [place]. Has 6 children (2 sets of twins-one fraternal and one set identical). 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 REVIEW OF SYSTEMS: Review of Systems Constitutional: [...] daily. Taking ??? fluticasone (FLONASE) 50 mcg/actuation Lebeau, Suspension 2 sprays by Each Nare route [...] Ref Range Heparin UFH Level 0.22 IU/mL [facility] 02/13/19 WBC 6.1 Hgb 12.9 Hct [...] Crestor 40 mg x 1 given at [place], patient has been taking Crestor 2.5 mg at home Add on fasting lipid profile Hypothyroidism TSH was normal at [place] today Continue levothyroxine 75 mcg daily Discussed with John Hua MD Provider: RICK MEHTA APRN Provider #: [id number] 02/13/2019 Associated attestation - John Hua MD [...] in the outpatient cardiac rehabilitation program at [facility] was discussed. Patient agrees to a referral [...] vent bigem rhythm. When she returned to [facility], the throat fullness disappeared. Md aware Plan [...] Abbasi MD - 02/16/2019 4:45 PM EDT [facility] Operative Note Patient Name: Albina Thompson : [id number] MR#: [id number] Case Date: 02/16/2019 Surgeon: Surgeon(s) and Role: [...] evident early complications. Results discussed with referring line lead Dr Burkett and Dr Hua, and with [...] x2, ostial D2 stent x1, 2005 at [facility]), HTN, HLD, asthma on multiple inhalers, hypothyroid, [...] her from sleep and she presented to [facility] ED, troponin negative, given ticagrelor 180mg x 1, started hep gtt, and transferred to [facility]. TTE 02/14 - EF 72%, no WMAs, no valvular disease Cath 02/15 - report pending EKG 02/15 - NSR 60s Cr - 0.59 LFTs - WNL Ticagrelor: 02/13: 180mg in AM ([place]), 90mg in PM ([facility]) 02/14: 90mg in AM, 90mg in PM [...] ??? Essential hypertension ??? Coronary atherosclerosis of buckland coronary artery 2005: 2 stents to mid LAD and stent to osteal D2 (bifurcation lesion) at [facility] 01/2018- ST II, HR 126, BP 203/72, CP, 1 mm inf and lat ST depressions, normal perfusion and wall notion Norvasc led to diarrhea, Imdur to dizziness/hypotension ??? Asthma ??? Hyperlipidemia ??? Posterior tibial tendon dysfunction ??? Ocular rosacea Past Medical History: Past Medical History: Diagnosis Date ??? Asthma 12/05/2017 ??? Coronary atherosclerosis of buckland coronary artery 12/05/2017 ??? Essential hypertension 12/05/2017 [...] History Social History Narrative Lives with in [place], [place]. Has 6 children (2 sets of twins-one fraternal and one set identical). 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 Family - Lives at home with Cholo. Has 6 children (her last 2 pregnancies were both sets of twins)-- 5 of which live nearby and the 6th lives in [place]. Has 10 grandchildren Smoking - never smoker ETOH - denies Illicit drug use - denies Muslim - denies Family History: Family History Problem Relation Age of Onset ??? Hypertension Mother ??? Asthma Mother ??? Hypertension Father ??? Heart Disease Father ??? Hyperlipidemia Father ??? Myocardial Infarction Father ID at age 40 and at age 60 ??? Heart Disease Sister ??? Heart Disease Brother ID at 48 ??? Hypertension Brother ??? Hypertension [...] daily. Taking ??? fluticasone (FLONASE) 50 mcg/actuation Lebeau, Suspension 2 sprays by Each Nare route [...] x2, ostial D2 stent x1, 2005 at [facility]), HTN, HLD, asthma on multiple inhalers, hypothyroid, [...] ??? Asthma 12/05/2017 ??? Coronary atherosclerosis of buckland coronary artery 12/05/2017 ??? Essential hypertension 12/05/2017 [...] Health/Prescription Coverage: Primary Insurance: MEDICARE Secondary Insurance: [employer] [facility] Prescription Coverage: yes Preferred Pharmacy: [place], [place] Primary Care Provider: Quin Rojas MD [phone] Patient/Caregiver Goals of Treatment: to return home. Potential Needs for Transition of Care: Rehab/SNF: n/a Home Health: TBD after surgery consult DME: n/a Dialysis: n/a Community Resources: n/a Transportation: her spouse by car Anticipated Barriers to Discharge/Special Considerations: none if surgery happens will need Home Health Assessment: Ruled out for ID. Was sent for cardiac catheterization today and [...] of care planning. Pierce Randall RN Pager: [phone] Op Note - Mere Abbasi MD - 02/15/2019 9:17 AM EDT [facility] Operative Note Patient Name: Albina Thompson : [id number] MR#: [id number] Case Date: 02/15/2019 Surgeon: Surgeon(s) and Role: [...] evident early complications. Results discussed with service line lead Dr Hua and with the patient and [...] were not included. Infiltration/Extravasation Scale Albina Thompson [id number] 457/457-B Infiltration appearance: Infiltration harm % for [...] of infiltration/extravasation Name of MD contacted Beeper 1212 4:55 AM Name of RN contacted LONNIE Salcido 4:55 AM Name of Pharmacist if consulted no 4:55 AM Plastics Provider contacted: no 4:55 AM Name of Plastics MD (if consulted) PHOTO TO BE ADDED HERE (Mandatory photo for infiltrations/ extravasations scoring a stage 2 or greater, but recommended forstage 1. Include measuring tape and identifier in the photo) ENGINE COWLING INSTALLER CARING FOR THIS PATIENT WILL CONTINUE TO [...] further details. RICK MEHTA APRN 02/14/2019 Pager [phone] Plan of Care - Kole Nichole RN [...] nitro drip waiting to go to the labeling machine operator. Patient appears comfortable but when asked, states [...] MD [facility] [address] [place], [place] [address] (Wo rk) 11/25/2022 Office Visit Dermatology Kole Mccain MD [address] [facility] DERMATOLOGY [place], [place] [address] (Wo rk) Scheduled Referrals [...] (Bezet) Calculated P 64 degrees MUSE SYSTEM [place] Calculated R 36 degrees MUSE SYSTEM [place] Calculated T 61 degrees MUSE SYSTEM [place] INTERPRETATION Normal sinus rhythm MUSE SYSTEM Normal ECG When compared with ECG of 17-MAY-2019 11:28, Premature supraventricular complexes are no longer Present Nonspecific T wave abnormality no longer evident in Lateral leads Confirmed by MD Madelaine, Patrice ([id number]) on 10/20/2019 3:48:37 PM Specimen Anatomical Collection Method Collection Time Receive d Time (Source) Location / / Volume Laterality 10/20/2019 1:30 PM 0 3:48 EDT PM EDT Rick Chris Cathi GENERALIST ECG ORDERABLES Performing Organization Address City/State/ZIP Code [...] 388 ms MUSE SYSTEM (Bezet) Calculated P [place] 42 degrees MUSE SYSTEM Calculated R [place] 32 degrees MUSE SYSTEM Calculated T [place] 50 degrees MUSE SYSTEM INTERPRETATION Sinus bradycardia MUSE SY STEM Otherwise normal ECG When compared with ECG of 16-FEB-2019 17:09, No significant change was found Confirmed by MD Jake, Diego ([id number]) on 02/17/2019 11:56:37 AM Specimen Anatomical Collection Method Collection Time Receive d Time (Source) Location / / Volume Laterality 02/17/2019 7:20 AM 9 EDT 11:56 AM EDT Rick Mehta GENERALIST ECG ORDERABLES Performing Organization Address City/State/ZIP Code Phon e Number MUSE SYSTEM Differential, Automated (02/17/2019 3:41 AM EDT) P athologist Signature Neutrophils % 65.1 % [facility] Neutr Abs (ANC) 4.66 1.70 - [facility] 6.10 [facility] x10(3)[facility] LABORATORY Lymphocytes % 22.7 % [facility] Lymphocytes Abs 1.6 0.9 - 3.2 [facility] x10(3)/[facility] LABORAT[facility] Monocytes % 9.0 % [facility] Monocyte Abs 0.6 0.3 - 0.9 [facility] x10(3)/[facility] Eosinophils % 2.8 % [facility] Eosinophils Abs 0.2 0.0 - 0.4 [facility] x10(3)/[facility] Basophils % 0.1 % [facility] Basophils Abs 0.0 0.0 - 0.1 [facility] x10(3)/[facility] Immature Gran % 0.30 % [facility] Comment: Immature granulocytes(IG's)percentage an d absolute count will include metamyelocytes, myelocytes, and promyelo cytes. Blood smears from CBCs yielding IG's will be scanned manually for concor dance. If this scan disagrees with the automated IG or if promyelocytes are not ed, a manual differential will be performed. Edith Gran Abs 0.02 0.00 - 0.04 x10(3)/[facility] Specimen Anatomical Collection Method Collection Time Receive d Time (Source) Location / / Volume Laterality Blood specimen 02/17/2019 3:41 AM 019 3:56 (specimen) EDT AM EDT Resulting Agency Comment Spec In Lab Rick Chris Cathi [facility] HEMATOLOG[facility] ORDERABLES Performing Organization Address City/State/[place] [address] (ABNORMAL) Hemogram (02/17/2019 3:41 AM EDT) Analysis Performed At Patho logist Time Signature WBC 7.2 4.0 - 9.5 [facility] x10(3)/[facility] LAB[facility] RBC 3.77 (L) 4.00 - [place] 5.21 [facility] x10(6)/[facility] LABORATORY Hemoglobin 11.5 (L) 11.7 - [facility] 15.5 gm/dL [facility] Hematocrit 33.5 (L) 35.7 - [facility] 45.8 % [facility] MCV 88.9 82.6 - [facility] 94.4 [facility] LABORATORY MCH 30.5 27.1 - [place] 32.0 pg [facility] MCHC 34.3 31.7 - [facility] [place] 35.0 gm/dL [facility] Platelets 176 145 - 357 [facility] x10(3)/[facility] LABORATORY RDWSD 45.1 37.0 - [facility] [place] 46.0 [facility] LABORATORY RDWCV 13.9 11.5 - [facility] [place] 14.1 % [facility] LAB[facility] MPV 9.9 7.6 - 12.9 [facility] nRBC % Auto 0.0 % [facility] nRBC Abs Auto 0.000 0.000 - [facility] [place] 0.000 [facility] x10(3)/[facility] LABORATORY Specimen Anatomical Collection Method Collection Time Receive d Time (Source) Location / / Volume Laterality Blood specimen 02/17/2019 3:41 AM 019 3:56 (specimen) EDT AM EDT Resulting Agency Comment Spec In Lab Rick FletcherLujan HEMATOLOGY ORDERABLES Performing Organization Address City/State/[place] [address] Magnesium (02/17/2019 3:41 AM EDT) P athologist Signature Magnesium 0.86 0.69 - 1.07 [facility] mmol/L [facility] Specimen Anatomical Collection Method Collection Time Receive d Time (Source) Location / / Volume Laterality Blood specimen 02/17/2019 3:41 AM 019 3:56 (specimen) EDT AM EDT Resulting Agency Comment Spec In Lab Rick Mehta GENERALIST CHEMISTRY ORDERABLES Performing Organization Address City/State/ZIP Code Phon e Number [place] [id number] (ABNORMAL) BMP w/fasting Glucose (02/17/2019 3:41 AM EDT) athologist Signature Glucose 96 65 - 99 [facility] Fasting mg/dL [facility] Comment: ?Fasting* Glucose Interpretive [...] of Diabetes Mellitus, Position Statement from the [employer]. ??Diabete s Care, Volume 33, Supplement 1, May 2009 BUN 18 8 - 18 mg/dL [facility] Creatinine 0.60 (L) 0.70 - 1.20 mg/dL [facility] Sodium 142 135 - 145 mmol/L [facility] Potassium 4.0 3.5 - 5.0 mmol/L [facility] Comment: Please note: ??Patients with WBC >100,00 0 may have falsely elevated Potassium levels. ??For accurate Potassium quantif ication in these patients send serum separator tube (gold top) for subsequent determinations. ??Contact the Clinical Chemistry Laboratory if there are any qu estions. Chloride 108 (H) 98 - 107 mmol/L [facility] CO2 24 22 - 31 mmol/L [facility] Anion Gap 10 5 - 15 mmol/L [facility] Calcium 8.5 8.5 - 10.5 mg/dL [facility] Estimated GFR 89 >=60 mL/min/1.73 m?? [facility] Comment: The eGFR was calculated using the CKD-EP I equation. As with all creatinine based estimates of kidney function, eGFR values calculated with the CKD-EPI equation are not accurate in patients wi th acute kidney failure, extremes of body mass or the acutely ill. http://Wibbitz/TYT ([employer])nkf eGFR 103 >=60 mL/min/1.73 m?? [facility] Comment: The eGFR was calculated using the CKD-EP I equation. As with all creatinine based estimates of kidney function, eGFR values calculated with the CKD-EPI equation are not accurate in patients wi th acute kidney failure, extremes of body mass or the acutely ill. [email or web address]/DHMCnkf Specimen Anatomical Collection Method Collection Time Receive d Time (Source) Location / / Volume Laterality Blood specimen 02/17/2019 3:41 AM 019 3:56 (specimen) EDT AM EDT Resulting Agency Comment Spec In Lab Rick Mehta APRN CHEMISTRY ORDERABLES Performing Organization Address City/State/[place] [address] EKG 12 Lead (02/16/2019 5:09 PM EDT) Component Value Ref Range Test Analysis Performed Pathologis t Method Time At Signature Ventricular rate 62 BPM MUSE SYSTEM Atrial Rate 62 BPM MUSE SYSTEM P-R Interval 166 ms MUSE SYSTEM QRS Duration 84 ms MUSE SYSTEM Q-T Interval 400 ms MUSE SYSTEM QTC Calculated 406 ms MUSE SYSTEM (Bezet) Calculated P Falkner 46 degrees MUSE SYSTEM Calculated R Falkner 51 degrees MUSE SYSTEM Calculated T Falkner 62 degrees MUSE SYSTEM INTERPRETATION Normal sinus [...] Laterality Volume Narrative 02/17/2019 7:44 AM EDT ?[facility] ? Cardiac Cathete rization/Intervention Report ? Patient Name: Hemond, Albina R. ? Procedure Date: 02/16/2019 ? A #: [id number] ? Primary Physician: Coylewright, Mere J ? Case #: [id number] ? File Name: [id number] ? Catheterization Order Number: [id number] ? [facility] ? Final Report [place], [place] ? Patient Name: ? Albina R. Hemo nd ? ID#: ?[id number] ? : ?1945 ? Procedure Date: ? February 16, 2019 ?Case #: ? [id number] ? Room: ? 6 ? Case Physician: [...] was designated as ASA Class ?III. The [facility] clinical frailty scale is 4: Vulnerable. ? [...] procedure was Urgent. The indication for ?the labeling machine operator visit is new onset angina less than [...] dose administered prior to arrival in the labeling machine operator. ?Recommend continuing ticagrelor 90 mg PO twice [...] ?coronary angiography and angioplas ty-coronary. ? Mere Abbasi, ? M.D. ? Electronically Signed by: Mere cortez, M.D. ? Report Finalized: 02/17/2019 ??13:52 ? Report Last Ammended: 05/27/2019 ??13:30 ? Procedure Note Mere Abbasi, - 05/27/2019For matting of this note might be different from the original. [facility] Cardiac Catheterization/Intervention Re port Patient Name: Albina Thompson Procedure Date: 02/16/2019 A #: [id number] Primary Physician: Mere Abbasi Case #: [id number] File Name: [id number] Catheterization Order Number: [id number] [facility] Final Report [place], [place] Patient Name: Albina Thompson ID#: [...] e was Urgent. The indication for the labeling machine operator visit is new onset angina less than [...] was a type B1 moderate risk lesion. [facility] nilda prevention of restenosis was the indication [...] administered prior t o arrival in the labeling machine operator. Recommend continuing ticagrelor 90 mg P O [...] 399 ms MUSE SYSTEM (Bezet) Calculated P Falkner 58 degrees MUSE SYSTEM Calculated R Falkner 43 degrees MUSE SYSTEM Calculated T Falkner 52 degrees MUSE SYSTEM INTERPRETATION Normal sinus rhythm MUSE SYSTEM Normal ECG When compared with ECG of 15-FEB-2019 07:01, No significant change was found Confirmed by MD Abbasi Megan ([id number]) on 02/16/2019 7:3 9:42 PM Specimen Anatomical Collection Method Collection Time Receive d Time (Source) Location / / Volume Laterality 02/16/2019 6:40 AM 9 7:39 EDT PM EDT Rick Mehta APRN ECG ORDERABLES Performing Organization Address City/State/ZIP Code Phon e Number MUSE SYSTEM (ABNORMAL) Differential, Automated (02/16/2019 4:10 AM EDT) [facility] gist Method Time Signature Neutrophils % 73.9 % [facility] Neutr Abs (ANC) 7.23 (H) 1.70 - [facility] 6.10 [facility] x10(3)/[facility] LABORATORY Lymphocytes % 17.2 % [facility] Lymphocytes Abs 1.7 0.9 - 3.2 [facility] x10(3)/[facility] LABORATORY Monocytes % 8.0 % [facility] Monocyte Abs 0.8 0.3 - 0.9 [facility] x10(3)/[facility] LABORATORY Eosinophils % 0.4 % [facility] Eosinophils Abs 0.0 0.0 - 0.4 [facility] x10(3)/[facility] LABORATORY Basophils % 0.1 % [facility] Basophils Abs 0.0 0.0 - 0.1 [facility] x10(3)/[facility] LABORATORY Immature Gran % 0.40 % [facility] Comment: Immature granulocytes(IG's)percentage an d absolute count will include metamyelocytes, myelocytes, and promyelo cytes. Blood smears from CBCs yielding IG's will be scanned manually for concor dance. If this scan disagrees with the automated IG or if promyelocytes are not ed, a manual differential will be performed. Edith Gran Abs 0.04 0.00 - 0.04 x10(3)/[facility] Specimen Anatomical Collection Method Collection Time Receive d Time (Source) Location / / Volume Laterality Blood specimen 02/16/2019 4:10 AM 019 4:16 (specimen) EDT AM EDT Resulting Agency Comment Spec In Lab Rick Fletcherzach GENERALIST HEMATOLOGY ORDERABLES Performing Organization Address City/State/ZIP Code Phon e Number [place], [place] [id number] [place] [address] (ABNORMAL) Hemogram (02/16/2019 4:10 AM EDT) Analysis Performed At Patho logist Time Signature WBC 9.8 (H) 4.0 - 9.5 [facility] x10(3[facility] LAB[facility]ATORY RBC 3.70 (L) 4.00 - [place] 5.21 [facility] x10(6)/[facility] LABORATORY Hemoglobin 11.2 (L) 11.7 - [facility] 15.5 gm/dL [facility] Hematocrit 33.4 (L) 35.7 - [facility] 45.8 % [facility] MCV 90.3 82.6 - [facility] 94.4 [facility] LABORATORY MCH 30.3 27.1 - [place] 32.0 pg [facility] MCHC 33.5 31.7 - [facility] PILLO 35.0 gm/dL [facility] Platelets 202 145 - 357 [facility] x10(3)/[facility] LABORATORY RDWSD 45.2 37.0 - [facility] PILLO 46.0 [facility] LABORATORY RDWCV 13.7 11.5 - [facility] PILLO 14.1 % [facility]ATORY MPV 9.6 7.6 - 12.9 [facility] nRBC % Auto 0.0 % [facility] nRBC Abs Auto 0.000 0.000 - [facility] PILLO 0.000 [facility] x10(3)/[facility] LABORATORY Specimen Anatomical Collection Method Collection Time Receive d Time (Source) Location / / Volume Laterality Blood specimen 02/16/2019 4:10 AM 019 4:16 (specimen) EDT AM EDT Resulting Agency Comment Spec In Lab Rick Mehta GENERALIST HEMATOLOGY ORDERABLES Performing Organization Address City/State/Z[place] [address] Magnesium (02/16/2019 4:10 AM EDT) P athologist Signature Magnesium 0.87 0.69 - 1.07 [facility] mmol/L [facility] Specimen Anatomical Collection Method Collection Time Receive d Time (Source) Location / / Volume Laterality Blood specimen 02/16/2019 4:10 AM 019 4:16 (specimen) EDT AM EDT Resulting Agency Comment Spec In Lab Rick Mehta LILIYA CHEMISTRY ORDERABLES Performing Organization Address City/State/[place] [address] (ABNORMAL) BMP w/fasting Glucose (02/16/2019 4:10 AM EDT) athologist Signature Glucose 124 (H) 65 - 99 [facility] Fasting mg/dL [facility] Comment: ?Fasting* Glucose Interpretive [...] of Diabetes Mellitus, Position Statement from the [place] [employer]. ??Diabete s Care, Volume 33, Supplement 1, May 2009 BUN 23 (H) 8 - 18 mg/dL [facility] Creatinine 0.54 (L) 0.70 - 1.20 mg/dL [facility] Sodium 143 135 - 145 mmol/L [facility] Potassium 3.6 3.5 - 5.0 mmol/L [facility] Comment: Please note: ??Patients with WBC >100,00 0 may have falsely elevated Potassium levels. ??For accurate Potassium quantif ication in these patients send serum separator tube (gold top) for subsequent determinations. ??Contact the Clinical Chemistry Laboratory if there are any qu estions. Chloride 109 (H) 98 - 107 mmol/L [facility] CO2 22 22 - 31 mmol/L [facility] Anion Gap 12 5 - 15 mmol/L [facility] Calcium 8.8 8.5 - 10.5 mg/dL [facility] Estimated GFR 92 >=60 mL/min/1.73 m?? [facility] Comment: The eGFR was calculated using the CKD-EP I equation. As with all creatinine based estimates of kidney function, eGFR values calculated with the CKD-EPI equation are not accurate in patients wi th acute kidney failure, extremes of body mass or the acutely ill. http://Wibbitz/TYT ([employer])nkf eGFR 107 >=60 mL/min/1.73 m?? [facility] Comment: The eGFR was calculated using the CKD-EP I equation. As with all creatinine based estimates of kidney function, eGFR values calculated with the CKD-EPI equation are not accurate in patients wi th acute kidney failure, extremes of body mass or the acutely ill. [email or web address] Specimen Anatomical Collection Method Collection Time Receive d Time (Source) Location / / Volume Laterality Blood specimen 02/16/2019 4:10 AM 019 4:16 (specimen) EDT AM EDT Resulting Agency Comment Spec In Lab Rick Mehta APRN CHEMISTRY ORDERABLES Performing Organization Address City/State/[place] [address] CARDIAC CATHETERIZATION (02/15/2019 9:20 AM EDT) Anatomical Region Laterality Modality Other Specimen (Source) Anatomical Location Collection Method / Collectio n Time Received Time / Laterality Volume Narrative 02/18/2019 11:59 AM EDT ?[facility] ? Cardiac Cathete rization/Intervention Report ? Patient Name: Hemond, Albina R. ? Procedure Date: 02/15/2019 ? A #: [id number] ? Primary Physician: Elroy, Mere Carter ? Case #: [id number] ? File Name: [id number] ? Catheterization Order Number: [id number] ? [facility] ? Final Report [place], [place] ? Patient Name: ? Albina R. Hemo nd ? ID#: ?[id number] ? : ?1945 ? Procedure Date: ? February 15, 2019 ?Case #: ? [id number] ? Room: ? 5 ? Case Physician: [...] procedure was Urgent. The indication for ?the labeling machine operator visit is ACS great er than 24 [...] note might be different from the original. [facility] Cardiac Catheterization/Intervention Re port Patient Name: Albina Thompson Procedure Date: 02/15/2019 A #: [id number] Primary Physician: Mere Abbasi Case #: [id number] File Name: [id number] Catheterization Order Number: [id number] [facility] Final Report [place], [place] Patient Name: Albina Thompson ID#: [...] e was Urgent. The indication for the labeling machine operator visit is ACS greater than 24 hrs. [...] LCX) * Recommend shared decision making appr [facility] for PCI v CABG. [...] 417 ms MUSE SYSTEM (Bezet) Calculated P Falkner 41 degrees MUSE SYSTEM Calculated R Falkner 32 degrees MUSE SYSTEM Calculated T Falkner 60 degrees MUSE SYSTEM INTERPRETATION Normal sinus rhythm MUSE SYSTEM Normal ECG When compared with ECG of 14-FEB-2019 06:29, No significant change was found Confirmed by MD Elroy, Mere ([id number]) on 02/15/2019 8:0 4:20 PM Specimen Anatomical Collection Method Collection Time Receive d Time (Source) Location / / Volume Laterality 02/15/2019 7:01 AM 9 8:04 EDT PM EDT Rick Mehta APRN ECG ORDERABLES Performing Organization Address City/State/ZIP Code Phon e Number MUSE SYSTEM (ABNORMAL) Differential, Automated (02/15/2019 4:45 AM EDT) Patholo gist Method Time Signature Neutrophils % 93.4 % [facility] Neutr Abs (ANC) 12.91 (H) 1.70 - [facility] 6.10 [facility] x10(3)/[facility] LABORATORY Lymphocytes % 4.5 % [facility] Lymphocytes Abs 0.6 (L) 0.9 - 3.2 [facility] x10(3)/[facility] LABORATORY Monocytes % 1.7 % [facility] Monocyte Abs 0.2 (L) 0.3 - 0.9 [facility] x10(3)/[facility] LABORATORY Eosinophils % 0.0 % [facility] Eosinophils Abs 0.0 0.0 - 0.4 [facility] x10(3)/[facility] LABORATORY Basophils % 0.1 % [facility] Basophils Abs 0.0 0.0 - 0.1 [facility] x10(3)/[facility] LABORATORY Immature Gran % 0.30 % [facility] Comment: Immature granulocytes(IG's)percentage an d absolute count will include metamyelocytes, myelocytes, and promyelo cytes. Blood smears from CBCs yielding IG's will be scanned manually for concor dance. If this scan disagrees with the automated IG or if promyelocytes are not ed, a manual differential will be performed. Edith Gran Abs 0.04 0.00 - 0.04 x10(3)/[facility] Specimen Anatomical Collection Method Collection Time Receive d Time (Source) Location / / Volume Laterality Blood specimen 02/15/2019 4:45 AM 019 4:56 (specimen) EDT AM EDT Resulting Agency Comment Spec In Lab Rick Mehta APRN HEMATOLOGY ORDERABLES Performing Organization Address City/State/Z[place] [address] (ABNORMAL) Hemogram (02/15/2019 4:45 AM EDT) Analysis Performed At Patho logist Time Signature WBC 13.8 (H) 4.0 - 9.5 [facility] x10(3)/[facility] LABORATORY RBC 3.80 (L) 4.00 - [facility] 5.21 [facility] x10(6)/[facility] LABORATORY Hemoglobin 11.7 11.7 - [facility] 15.5 gm/dL [facility] Hematocrit 33.5 (L) 35.7 - [facility] 45.8 % [facility] MCV 88.2 82.6 - [facility] 94.4 fL [facility] MCH 30.8 27.1 - [facility] 32.0 pg [facility] MCHC 34.9 31.7 - [facility] 35.0 gm/dL [facility] Platelets 230 145 - 357 [facility] x10(3)/[facility] LABORATORY RDWSD 43.6 37.0 - [place] [address] [facility] RDWCV 13.4 11.5 - [place] 14.1 % [facility] MPV 9.8 7.6 - 12.9 [place] [facility] LABORATORY nRBC % Auto 0.0 % [facility] nRBC Abs Auto 0.000 0.000 - [facility] 0.000 [facility] x10(3)/[facility] LABORATORY Specimen Anatomical Collection Method Collection Time Receive d Time (Source) Location / / Volume Laterality Blood specimen 02/15/2019 4:45 AM 019 4:56 (specimen) EDT AM EDT Resulting Agency Comment Spec In Lab Rick Mehta APRN HEMATOLOGY ORDERABLES Performing Organization Address City/State/ZIP Code Phon e Number [place] [id number] Heparin (unfractionated) Level (02/15/2019 4:45 AM EDT) athologist Signature Heparin UFH 0.46 IU/mL [facility] LABORATORY Comment: Guidelines for therapeutic [...] Mehta APRN HEMATOLOGY ORDERABLES Performing Organization Address City/[facility]/ZIP Code Phon e Number [address] Magnesium (02/15/2019 4:45 AM EDT) P athologist Signature Magnesium 0.86 0.69 - 1.07 [facility] mmol/L [facility]ORY Specimen Anatomical Collection Method Collection Time Receive d Time (Source) Location / / Volume Laterality Blood specimen 02/15/2019 4:45 AM 019 4:56 (specimen) EDT AM EDT Resulting Agency Comment Spec In Lab Rick Mehta APRN CHEMISTRY ORDERABLES Performing Organization Address City/[facility]/[place] [address] (ABNORMAL) BMP w/fasting Glucose (02/15/2019 4:45 AM EDT) P athologist Signature Glucose 164 (H) 65 - 99 [facility] Fasting mg/dL [facility] Comment: ?Fasting* Glucose Interpretive [...] of Diabetes Mellitus, Position Statement from the [employer]. ??Diabete s Care, Volume 33, Supplement 1, May 2009 BUN 19 (H) 8 - 18 mg/dL [facility] Creatinine 0.59 (L) 0.70 - 1.20 mg/dL [facility] Sodium 142 135 - 145 mmol/L [facility] Potassium 3.9 3.5 - 5.0 mmol/L [facility] Comment: Please note: ??Patients with WBC >100,00 0 may have falsely elevated Potassium levels. ??For accurate Potassium quantif ication in these patients send serum separator tube (gold top) for subsequent determinations. ??Contact the Clinical Chemistry Laboratory if there are any qu estions. Chloride 108 (H) 98 - 107 mmol/L [facility] CO2 21 (L) 22 - 31 mmol/L [facility] Anion Gap 13 5 - 15 mmol/L [facility] Calcium 9.6 8.5 - 10.5 mg/dL [facility] Estimated GFR 90 >=60 mL/min/1.73 m?? [facility] Comment: The eGFR was calculated using the CKD-EP I equation. As with all creatinine based estimates of kidney function, eGFR values calculated with the CKD-EPI equation are not accurate in patients wi th acute kidney failure, extremes of body mass or the acutely ill. [email or web address]/[facility]ORD[facility]f eGFR 104 >=60 mL/min/1.73 m?? [facility] Comment: The eGFR was calculated using the CKD-EP I equation. As with all creatinine based estimates of kidney function, eGFR values calculated with the CKD-EPI equation are not accurate in patients wi th acute kidney failure, extremes of body mass or the acutely ill. [email or web address]/DHnkf Specimen Anatomical Collection Method Collection Time Receive d Time (Source) Location / / Volume Laterality Blood specimen 02/15/2019 4:45 AM 019 4:56 (specimen) EDT AM EDT Resulting Agency Comment Spec In Lab Rick Mehta APRN CHEMISTRY ORDERABLES Performing Organization Address City/State/Z[place] [address] Heparin (unfractionated) Level (02/14/2019 7:49 PM EDT) P athologist Signature Heparin UFH 0.61 IU/mL [facility] LABORATORY Comment: Guidelines for therapeutic [...] Organization Address City/State/Z[place] [address] Heparin (unfractionated) Level (02/14/2019 1:59 PM EDT) athologist Signature Heparin UFH 0.65 IU/mL [facility] LABORATORY Comment: Guidelines for therapeutic [...] Organization Address City/State/[place] [address] ECHOCARDIOGRAM COMPLETE (02/14/2019 9:51 AM EDT) P athologist Signature EF 72 HEARTLAB SYSTEM Anatomical Region Laterality Modality Other Specimen (Source) Anatomical Location Collection Method / Collectio n Time Received Time / Laterality Volume 02/14/2019 Narrative 02/14/2019 11:46 AM EDT Procedure: ?Transthoracic Echocardiogram Patient: ?HEMOND ALBINA R ? (Age): 1945(73y) Med Rec#: ? [id number] ?Sex: ?F ? Site Loc: ? [facility] ?Ht / Wt: ??154(cm)/68(kg) Pt. Loc: ?Adult Floor ? BSA: ?1.66 Study Date: ?? 02/14/2019 ?Pt. Type: Inpatient Tape: ? Referring: HONEY Referring: Rick Mehta Reading: John Hua ([id number]) Locks Inspector: Suzy Trejo Diagnosis: *Atherosclerotic heart disease of [...] E-wave Vmax ?0.7 ?m/sec ? MV deceleration bhvh971.5 ? msec ? MV A-wave Vmax ?0.9 [...] ? Mid-Inferior ?Normal ? Mid-Inferoseptal ?Normal ? Chandler-Septal ? Normal ? Chandler-Anterior ? Normal ? Chandler-Lateral ?Normal ? Chandler-Inferior ? Normal ? Chandler-Tip ?Normal ? This report has been electronically sign ed by: _ John Hua MD ? 02/14/2019 11:45 :39 Images reviewed and interpretation vipin cerna [facility] Cardiac Ultrasound Laboratory Procedure Note John Hua MD - 02/14/2019Formattin g of this note might be different from the original. Procedure: Transthoracic Echocardiogram Patient: OLIVA ESCAMILLA(Age): [birth year](73y) Med Rec#: [id number] Sex: F [facility] Loc[facility] Ht / Wt: 154(cm)/68(kg) Pt. Loc: Adult Floor BSA: 1.66 Study Date: 02/14/2019 Pt. Type: Inpatie nt Tape: Referring: HONEY Referring: Rick Mehta Reading: John Hua ([id number]) Locks Inspector: Suzy Trejo Diagnosis: *Atherosclerotic heart disease of [...] MV E-wave Vmax 0.7 m/sec MV deceleration ctcs303.5 msec MV A-wave Vmax 0.9 m/sec MV [...] Normal Mid-Posterolateral Normal Mid-Inferior Normal Mid-Inferoseptal Normal Chandler-Septal Normal Chandler-Anterior Normal Chandler-Lateral Normal Chandler-Inferior Normal Chandler-Tip Normal This report has been electronically sign ed by: _ John Hua MD 02/14/2019 11:45:39 Images reviewed and interpretation [facility] Cardiac Ultrasound Laboratory Rick Mehta GENERALIST ECHO ORDERABLES Troponin (02/14/2019 6:44 AM EDT) athologist Signature Troponin-T <0.01 0.00 - 0.00 [facility] ng/mL [facility] Comment: The 99th percentile for Troponin T is le ss than 0.01 ng/mL, any detectable cTnT concentration using this assay should be considered elevated. According to the third universal definit ion of myocardial infarction the following criteria with a clinical prese ntation consistent with acute myocardial ischemia meets the diagnosis for a myocardial infarction (ID). Detection of a rise and/or fall of [...] additional sample may be indicated. Reference: [place] Definition of Myocardial Infarction. Journal of the [place] [employer] 2012;60:1581-98 Specimen Anatomical Collection Method Collection Time Receive d Time (Source) Location / / Volume Laterality Blood specimen 02/14/2019 6:44 AM 019 6:51 (specimen) EDT AM EDT Resulting Agency Comment Spec In Lab Logan Hernandes MD CHEMISTRY ORDERABLES Performing Organization Address City/State/ZIP [place] [address] Heparin (unfractionated) Level (02/14/2019 6:44 AM EDT) athologist Signature Heparin UFH 0.74 IU/mL [facility] LABORATORY Comment: Guidelines for therapeutic [...] Agency Comment Spec In Lab Rick Mehta GENERALIST HEMATOLOGY ORDERABLES Performing Organization Address City/State/[place] [address] (ABNORMAL) Differential, Automated (02/14/2019 6:44 AM EDT) [facility] Method Time Signature Neutrophils % 91.3 % [facility] LABORATORY Neutr Abs (ANC) 6.44 (H) 1.70 - [facility] 6.10 [facility] x10(3)/[facility] LABORATORY Lymphocytes % 7.9 % [facility] LABORATORY Lymphocytes Abs 0.6 (L) 0.9 - 3.2 [facility] x10(3)/[facility] LABORATORY Monocytes % 0.4 % [facility] LABORATORY Monocyte Abs 0.0 (L) 0.3 - 0.9 [facility] x10(3)/[facility] LABORATORY Eosinophils % 0.0 % [facility] LABORATORY Eosinophils Abs 0.0 0.0 - 0.4 [facility] x10(3)/[facility] LABORATORY Basophils % 0.1 % [facility] LABORATORY Basophils Abs 0.0 0.0 - 0.1 [facility] x10(3)/[facility] LABORATORY Immature Gran % 0.30 % [facility] LABORATORY Comment: Immature granulocytes(IG's)percentage an d absolute count will include metamyelocytes, myelocytes, and promyelo cytes. Blood smears from CBCs yielding IG's will be scanned manually for concor dance. If this scan disagrees with the automated IG or if promyelocytes are not ed, a manual differential will be performed. Edith Gran Abs 0.02 0.00 - 0.04 x10(3)/[facility] LABORATORY Specimen Anatomical Collection Method Collection Time Receive d Time (Source) Location / / Volume Laterality Blood specimen 02/14/2019 6:44 AM 019 6:51 (specimen) EDT AM EDT Resulting Agency Comment Spec In Lab Rick Aries Cathi LOVELL HEMATOLOGY ORDERABLES Performing Organization Address City/State/ZIP Code Phon e Number [address] Hemogram (02/14/2019 6:44 AM EDT) P athologist Signature WBC 7.1 4.0 - 9.5 [facility] x10(3)/[facility] LABORATORY RBC 4.22 4.00 - [place] 5.21 [facility] x10(6)/[facility] LABORATORY Hemoglobin 12.7 11.7 - [place] 15.5 gm/dL [facility] LABORATORY Hematocrit 37.4 35.7 - [facility] 45.8 % [facility] LABORATORY MCV 88.6 82.6 - [facility]4 [facility] LABORATORY MCH 30.1 27.1 - [facility] 32.0 pg [facility] LABORATORY MCHC 34.0 31.7 - [place] 35.0 gm/dL [facility] LABORATORY Platelets 222 145 - 357 [facility] x[facility](3[facility] LABORATORY RDWSD 43.5 37.0 - [facility] 46.0 [facility] LABORATORY RDWCV 13.2 11.5 - [facility] 14.1 % [facility] LABORATORY MPV 9.4 7.6 - 12.9 [facility] LABORATORY nRBC % Auto 0.0 % [facility] LABORATORY nRBC Abs Auto 0.000 0.000 - [place] 0.000 [facility] x10(3)/[facility] LABORATORY Specimen Anatomical Collection Method Collection Time Receive d Time (Source) Location / / Volume Laterality Blood specimen 02/14/2019 6:44 AM 019 6:51 (specimen) EDT AM EDT Resulting Agency Comment Spec In Lab Ricknaima Mehta APRN HEMATOLOGY ORDERABLES Performing Organization Address City/State/[place] [address] Triglyceride (02/14/2019 6:44 AM EDT) athologist Signature Triglycerides 51 mg/dL [facility] LABORATORY Comment: Average Risk/Lower Risk: <150 mg/dL Borderline High Risk: 150-199 mg/dL High Risk: 200-499 mg/dL Very High Risk: >ut=911 mg/dL Specimen Anatomical Collection Method Collection Time Receive d Time (Source) Location / / Volume Laterality Blood specimen 02/14/2019 6:44 AM 019 6:51 (specimen) EDT AM EDT Resulting Agency Comment Spec In Lab Rick Aries Justinezach LILIYA CHEMISTRY ORDERABLES Performing Organization Address City/State/[place] [address] HDL/Cholesterol Profile (02/14/2019 6:44 AM EDT) athologist Signature Chol, Total 170 mg/dL [facility] LABORATORY Comment: Lower Risk: <200 mg/dL Average Risk: 200-239 mg/dL Higher Risk: >sx=904 mg/dL HDL 77 mg/dL [facility] LABORATORY Comment: Males: ?? Higher Risk: <40 mg/dL Females: ?? HIgher Risk: <50 mg/dL Chol/HDL Ratio 2.2 ratio [facility] LABORATORY Chol/HDL Interpretation See Note [facility] LABORATORY Comment: Lipid management should be guided by a p atient? s ASCVD risk, goals and preferences. ACC/AHA Guidelines recommend high intens ity statin if clinical ASCVD or LDL greater than or equal to 190 mg/dL. [email or web address] [email or web address] Measure LDL if Total Cholesterol minus H DL Cholesterol is greater than 220 mg/dL. Adults aged 40-75 with LDL 70-189 mg/dL should have their 10 year ASCVD risk estimated with the ACC/AHA ASCVD risk es timator http://tools.acc.org/CKXRK-Qalj-Dmfckcuf r/ Statin should be discussed if risk [...] Mehta APRN CHEMISTRY ORDERABLES Performing Organization Address [facility] Phon e Number [address] LDL Cholesterol, Direct (02/14/2019 6:44 AM EDT) athologist Signature LDL Chol 86 mg/dL [facility] LABORATORY Comment: Lowest Risk: <100 mg/dL Lower Risk: 100-129 mg/dL Borderline High Risk: 130-159 mg/dL High Risk: 160-189 mg/dL Very High Risk: >kq=435 mg/dL Specimen Anatomical Collection Method Collection Time Receive d Time (Source) Location / / Volume Laterality Blood specimen 02/14/2019 6:44 AM 019 6:51 (specimen) EDT AM EDT Resulting Agency Comment Spec In Lab Rick Mehta APRN CHEMISTRY ORDERABLES Performing Organization Address [facility] Phon e Number [address] Hemoglobin A1c (02/14/2019 6:44 AM EDT) athologist Signature Hemoglobin A1C 5.2 4.3 - 5.6 [facility] LABORATORY Comment: Reference Range: 4.3 - [...] Mellitus, Diabetes Care 2013; 36: Suppl. 1, S67-46 Est Avg Gluc See note mg/dL [facility] [...] with hemoglobinopathies. Additional resources are available on [facility] ADA website. Jamar ESPINOZA, Palmer J, Collins R, et al. ??Tr anslating the A1C assay into estimated average glucose values. ??Diabetes Care 2008:31(8):3536-7609. Specimen Anatomical Collection Method Collection Time Receive d Time (Source) Location / / Volume Laterality Blood specimen 02/14/2019 6:44 AM 019 6:51 (specimen) EDT AM EDT Resulting Agency Comment Spec In Lab Rick Mehta APRN CHEMISTRY ORDERABLES Performing Organization Address City/State/Z[place] [address] Magnesium (02/14/2019 6:44 AM EDT) athologist Signature Magnesium 0.83 0.69 - 1.07 [facility] mmol/L [facility] LABORATORY Specimen Anatomical Collection Method Collection Time Receive d Time (Source) Location / / Volume Laterality Blood specimen 02/14/2019 6:44 AM 019 6:51 (specimen) EDT AM EDT Resulting Agency Comment Spec In Lab Rick Mehta GENERALIST CHEMISTRY ORDERABLES Performing Organization Address City/State/Z[place] [address] (ABNORMAL) BMP w/fasting Glucose (02/14/2019 6:44 AM EDT) P athologist Signature Glucose 162 (H) 65 - 99 [facility] Fasting mg/dL [facility] LABORATORY Comment: ?Fasting* Glucose Interpretive [...] of Diabetes Mellitus, Position Statement from the [place] [employer]. ??Diabete s Care, Volume 33, Supplement 1, May 2009 BUN 14 8 - 18 mg/dL [facility] LABORATORY Creatinine 0.59 (L) 0.70 - 1.20 mg/dL [facility] LABORATORY Sodium 140 135 - 145 mmol/L [facility] LABORATORY Potassium 3.9 3.5 - 5.0 mmol/L [facility] LABORATORY Comment: Please note: ??Patients with WBC >100,00 0 may have falsely elevated Potassium levels. ??For accurate Potassium quantif ication in these patients send serum separator tube (gold top) for subsequent determinations. ??Contact the Clinical Chemistry Laboratory if there are any qu estions. Chloride 105 98 - 107 mmol/L [facility] LABORATORY CO2 21 (L) 22 - 31 mmol/L [facility] LABORATORY Anion Gap 14 5 - 15 mmol/L [facility] LABORATORY Calcium 9.2 8.5 - 10.5 mg/dL [facility] LABORATORY Estimated GFR 90 >=60 mL/min/1.73 m?? [facility] LABORATORY Comment: The eGFR was calculated using the CKD-EP I equation. As with all creatinine based estimates of kidney function, eGFR values calculated with the CKD-EPI equation are not accurate in patients wi th acute kidney failure, extremes of body mass or the acutely ill. [email or web address]ORD[facility]f eGFR 104 >=60 mL/min/1.73 m?? [facility] LABORATORY Comment: The eGFR was calculated using the CKD-EP I equation. As with all creatinine based estimates of kidney function, eGFR values calculated with the CKD-EPI equation are not accurate in patients wi th acute kidney failure, extremes of body mass or the acutely ill. [email or web address]ATH[facility]ORDnkf Specimen Anatomical Collection Method Collection Time Receive d Time (Source) Location / / Volume Laterality Blood specimen 02/14/2019 6:44 AM 019 6:51 (specimen) EDT AM EDT Resulting Agency Comment Spec In Lab Rick Mehta APRN CHEMISTRY ORDERABLES Performing Organization Address City/State/Z[place] [address] EKG 12 Lead (02/14/2019 6:29 AM EDT) Component Value Ref Range Test Analysis Performed Pathologis t Method Time At Signature Ventricular rate 61 BPM MUSE SYSTEM Atrial Rate 61 BPM MUSE SYSTEM P-R Interval 172 ms MUSE SYSTEM QRS Duration 102 ms MUSE SYSTEM Q-T Interval 408 ms MUSE SYSTEM QTC Calculated 410 ms MUSE SYSTEM (Bezet) Calculated P Falkner 52 degrees MUSE SYSTEM Calculated R Falkner 41 degrees MUSE SYSTEM Calculated T Falkner 64 degrees MUSE SYSTEM INTERPRETATION Normal sinus [...] EDT) athologist Signature Heparin UFH 0.64 IU/mL [facility] LABORATORY Comment: Guidelines for therapeutic [...] Hua MD HEMATOLOGY ORDERABLES Performing Organization Address City/[facility]/ZIP [place] [address] Troponin (02/13/2019 9:30 PM EDT) athologist Signature Troponin-T <0.01 0.00 - 0.00 [facility] ng/mL [facility] LABORATORY Comment: The 99th percentile for Troponin T is le ss than 0.01 ng/mL, any detectable cTnT concentration using this assay should be considered elevated. According to the third universal definit ion of myocardial infarction the following criteria with a clinical prese ntation consistent with acute myocardial ischemia meets the diagnosis for a myocardial infarction (ID). Detection of a rise and/or fall of [...] additional sample may be indicated. Reference: [place] Definition of Myocardial Infarction. Journal of the [place] [employer] 2012;60:1581-98 Specimen Anatomical Collection Method Collection Time Receive d Time (Source) Location / / Volume Laterality Blood specimen 02/13/2019 9:30 PM 019 9:59 (specimen) EDT PM EDT Resulting Agency Comment Spec In Lab Rick Mehta GENERALIST CHEMISTRY ORDERABLES Performing Organization Address City/State/[place] [address] (ABNORMAL) Hepatic Function Panel (02/13/2019 3:53 PM EDT) P athologist Signature Total Protein 6.9 6.1 - 8.0 [facility] gm/dL [facility] LABORATORY Albumin 3.9 3.2 - 5.2 [place] gm/dL [facility] LABORATORY AST 22 0 - 30 [place] unit/L [facility] LABORATORY ALT 14 0 - 30 [place] unit/L [facility] LABORATORY Alk Phos 110 (H) 35 - 105 [place] unit/L [facility] LABORATORY Total 0.7 0.2 - 1.3 [facility] Bilirubin mg/dL [facility] LABORATORY Bili, Direct 0.2 0.0 - 0.3 [place] mg/dL [facility] LABORATORY Specimen Anatomical Collection Method Collection Time Receive d Time (Source) Location / / Volume Laterality Blood specimen Venous Draw / 02/13/2019 3:53 PM 2018 4:00 (specimen) Unknown EDT PM EDT Resulting Agency Comment Spec In Lab Rick Mehta GENERALIST CHEMISTRY ORDERABLES Performing Organization Address City/State/Z[place] [address] Lipid Panel (Reflex Direct LDL) (02/13/2019 3:53 PM EDT) athologist Signature Chol, Total 165 mg/dL [facility] LABORATORY Comment: Lower Risk: <200 mg/dL Average Risk: 200-239 mg/dL Higher Risk: >sz=682 mg/dL Triglycerides 79 mg/dL [facility] LABORATORY Comment: Average Risk/Lower Risk: <150 mg/dL Borderline High Risk: 150-199 mg/dL High Risk: 200-499 mg/dL Very High Risk: >up=321 mg/dL HDL 65 mg/dL [facility] LABORATORY Comment: Males: ?? Higher Risk: <40 mg/dL Females: ?? HIgher Risk: <50 mg/dL LDL Cholesterol 84 mg/dL [facility] LABORATORY Comment: Lowest Risk: <100 mg/dL Lower Risk: 100-129 mg/dL Borderline High Risk: 130-159 mg/dL High Risk: 160-189 mg/dL Very High Risk: >nd=557 mg/dL Chol/HDL Ratio 2.5 ratio [facility] LABORATORY Lipid Interpretation See Note [facility] LABORATORY Comment: Lipid management should be guided by a p atient? s ASCVD risk, goals and preferences. ACC/AHA Guidelines recommend high intens ity statin if clinical ASCVD or LDL greater than or equal to 190 mg/dL. http://tinyurl.com/BIJ-IGN-Bzvafbkrg Adults aged 40-75 with LDL 70-189 mg/dL should have their 10 year ASCVD risk estimated with the ACC/AHA ASCVD risk es timator http://tools.acc.org/JHXPF-Hebf-Dyyaepqe r/ Statin should be discussed if risk [...] Mehta APRN CHEMISTRY ORDERABLES Performing Organization Address [facility]/[place] [address] Heparin (unfractionated) Level (02/13/2019 3:53 PM EDT) athologist Signature Heparin UFH 0.22 IU/mL [facility] LABORATORY Comment: Guidelines for therapeutic [...] Mehta APRN HEMATOLOGY ORDERABLES Performing Organization Address [facility]/State/ZIP [place] [address] Troponin (02/13/2019 3:53 PM EDT) P athologist Signature Troponin-T <0.01 0.00 - 0.00 [facility] LABORATORY Comment: The 99th percentile for Troponin T is le ss than 0.01 ng/mL, any detectable cTnT concentration using this assay should be considered elevated. According to the third universal definit ion of myocardial infarction the following criteria with a clinical prese ntation consistent with acute myocardial ischemia meets the diagnosis for a myocardial infarction (ID). Detection of a rise and/or fall of [...] additional sample may be indicated. Reference: [place] Definition of Myocardial Infarction. Journal of the [place] [employer] 2012;60:1581-98 Specimen Anatomical Collection Method Collection Time Receive d Time (Source) Location / / Volume Laterality Blood specimen 02/13/2019 3:53 PM 019 3:59 (specimen) EDT PM EDT Resulting Agency Comment Spec In Lab Rick Mehta GENERALIST CHEMISTRY ORDERABLES Performing Organization Address City/State/[place] [address] (ABNORMAL) APTT (02/13/2019 3:53 PM EDT) P athologist Signature PTT 93 (H) 25 - 37 sec [facility] LABORATORY Comment: The PTT is NOT [...] Agency Comment Spec In Lab Rick Mehta GENERALIST HEMATOLOGY ORDERABLES Performing Organization Address City/[facility]/ZIP [facility] [place] [address] Prothrombin Time (02/13/2019 3:53 PM EDT) P athologist Signature PT 12.4 9.4 - 12.5 [facility] LABORATORY INR 1.1 [facility] LABORATORY Comment: An INR <2.0 indicates [...] Rick FletcherLujan HEMATOLOGY ORDERABLES Performing Organization Address City/[facility]/[place] [address] EKG 12 Lead (02/13/2019 3:14 PM EDT) Component Value Ref Range Test Analysis Performed Pathologis t Method Time At Signature Ventricular rate 88 BPM MUSE SYSTEM Atrial Rate 88 BPM MUSE SYSTEM P-R Interval 176 ms MUSE SYSTEM QRS Duration 94 ms MUSE SYSTEM Q-T Interval 354 ms MUSE SYSTEM QTC Calculated 428 ms MUSE SYSTEM (Bezet) Calculated P Falkner 51 degrees MUSE SYSTEM Calculated R Falkner 36 degrees MUSE SYSTEM Calculated T Falkner 60 degrees MUSE SYSTEM INTERPRETATION Sinus rhythm [...] 9 EDT 11:16 AM EDT Rick Mehta GENERALIST ECG ORDERABLES Performing Organization Address City/State/ZIP Code [...] mg fentaNYL 50 mcg/mL multi-dose injection Given 02/15/2019 8:39 AM EDT 25 mcg ONCE PRN, Starting on 02/15/19 at 0811, Until Fri02/15/19 at 0913, Intra-Operative (Intra-Procedure), Routine Given 02/15/2019 8:11 AM EDT 25 mcg fluticasone propionate (FLONASE) 50 Given 02/14/2019 8:51 PM EDT 2 sprays mcg/actuation nasal spray 2 spray 2 spray, Each Nare, NIGHTLY, First dose on 02/13/19 at 2100, Until Discontinued, Routine Given 02/13/2019 8:51 PM EDT 2 sprays heparin (porcine) injection Given 02/15/2019 8:40 AM EDT 3,000 Units ONCE PRN, Starting on 02/15/19 at 0822, Until Fri02/15/19 at 0913, Cath (Intra-Procedure), Routine Given 02/15/2019 8:22 AM EDT 3,000 Units iohexol (OMNIPAQUE) 350 mg/mL solution Given 02/15/2019 9:11 AM EDT 88 mLs ONCE PRN, Starting on 02/15/19 at 0911, Until Fri02/15/19 at 0913, Cath (Intra-Procedure), Routine levothyroxine (SYNTHROID) tablet 75 [...] midazolam (PF) (VERSED) multi-dose injec tion Given 02/15/2019 8:39 AM EDT 1 mg ONCE PRN, Starting on 02/15/19 at 0811, Until 02/15/19 at 0913, Cath (Intra-Procedure), Routine Given 02/15/2019 8:11 AM EDT 1 mg montelukast (SINGULAIR) tablet 10 [...] 1 tablet nitroGLYcerin 100 mcg/mL intracoronary Given 02/15/2019 8:57 AM EDT 150 mcg dilution ONCE PRN, Starting on 02/15/19 at 0819, Until 02/15/19 at 0913, Cath (Intra-Procedure), Routine Given 02/15/2019 8:19 AM EDT 150 mcg nitroGLYcerin 50 mg in Rate/Dose Change [...] Fri02/15/19 at 0000, Until Fri02/17/19 at 1749 ticagrelor (BRILINTA) tablet 90 mg Given 02/17/2019 [...] EDT 100 mg verapamil (ISOPTIN) injection Given 02/15/2019 8:19 AM EDT 2.5 mg ONCE PRN, Starting on 02/15/19 at 0819, Until 02/15/19 at 0913, Administer over 2 Minutes, Cath (Intra-Procedure) documented [...] Adt) 0903 (Given - Provider: Delma Campos nd RN)1436 (MAR Hold - Provider: Admin Adt - Reason: Transfer to a Procedural area)1733 (MAR Unhold - Provider: Admin Adt) 0838 (Given - Provider: Delma Dotson, LONNIE) 81 mg, Oral, DAILY, First dose on Sun at 0900, Until Discontinued, Routine budesonide-formoterol (SYMBICORT) 160-4.5 mcg/actuatio n inhaler 2 Inhalation 0758 (MAR Hold - Provider: Admin Adt - Reason: Transfer to a Procedural area)0900 (Automatically Held - Provider: Admin Adt)0957 (MAR Unhold - Provider: Admin Adt)1005 (Given - Provider: Oxana Tran, LONNIE) 0902 (Not Given - Provider: Delma Dotson [...] area)0900 (Automatically Held - Provider: Admin Adt)0957 ([facility] Unhold - Provider: Admin Adt)1005 (Given - Provider: Oxana Tran RN)2056 (Given - Provider: Alesha Gottlieb RN) 0903 (Given - Provider: Delma Dotson RN)143 ([facility] Hold - Provider: Admin Adt - Reason: Transfer to a Procedural area)1732 ([facility] Unhold - Provider: Admin Adt)2013 (Given - Provider: Alesha Gottlieb RN) 0838 (Given - Provider: Delma Campos nd, LONNIE) 2,000 Units, Oral, 2 TIMES DAILY, First dose on 02/13/19 at 2099, Until Discontinued, Routine cycloSPORINE (RESTASIS) 0.05 % ophthalmic emulsion 1 d rop 0758 ([facility] Hold - Provider: Admin Adt - Reason: Transfer to a Procedural area)0900 (Automatically Held - Provider: Admin Adt)0957 ([facility] Unhold - Provider: Admin Adt)2056 (Given - Provider: Alesha Gottlieb RN) 0902 (Given - Provider: Delma Campos nd, RN)143 ([facility] Hold - Provider: Admin Adt - Reason: Transfer to a Procedural area)1732 ([facility] Unhold - Provider: Admin Adt)2013 (Given - Provider: Alesha Gottlieb RN) 0850 (Given - Provider: Delma Dotson RN) 1 drop, Both Eyes, 2 TIMES DAILY, First dose on 02/13/19 at 2099, Until Discontinued, Routine docusate sodium (COLACE) capsule 100 mg 0758 ([facility] Hold - Provider: Admin Adt - Reason: Transfer to a Procedural area)0900 (Automatically Held - Provider: Admin Adt)0957 ([facility] Unhold - Provider: Admin Adt)1006 (Given - Provider: Oxana salinas RN) 0900 (Not Given - Provider: Delma mcduffie RN - Reason: Patient/family refused)1436 ([facility] Hold - Provider: Admin Adt - Reason: Transfer to a Procedural area)1733 ([facility] Unhold - Provider: Admin Adt) 0900 [...] area)0900 (Automatically Held - Provider: Admin Adt)0957 ([facility] Unhold - Provider: Admin Adt)1006 (Given - Provider: Oxana salinas RN)2057 (Given - Provider: Alesha Gottlieb RN) 0903 (Given - Provider: Delma Dotson RN)1436 ([facility] Hold - Provider: Admin Adt - Reason: Transfer to a Procedural area)173 ([facility] Unhold - Provider: Admin Adt)2013 (Given - Provider: Alesha Gottlieb RN) 0838 (Given - Provider: Delma Campos nd RN) 20 mg, Oral, 2 TIMES DAILY, First dose o n 02/13/19 at 2100, Until Discontinued, Routine fluticasone propionate (FLONASE) 50 mcg/actuation nasa l spray 2 spray 0758 ([facility] Hold - Provider: Admin Adt - Reason: Transfer to a Procedural area)0957 ([facility] Unhold - Provider: Admin Adt)2099 (Not Given - Provider: Alesha Gottlieb RN - Reason: Patient/family refused) 1436 ([facility] Hold - Provider: Admin Adt - R miguel angel: Transfer to a Procedural area)1733 ([facility] Unhold - Provider: Admin Adt)2099 (Not [...] 0556 (Given - Provider: Omari Pollard RN)0758 ([facility] Hold - Provider: Admin Adt - Reason: Transfer to a Procedural area)0957 ([facility] Unhold - Provider: Admin Adt) 0608 (Given - Provider: Alesha Gottlieb RN)1436 ([facility] Hold - Provider: Admin Adt - Reason: Transfer to a Procedural area)1733 ([facility] Unhold - Provider: Admin Adt) 0538 (Given - Provider: Alesha Gottlieb RN) 75 mcg, Oral, EVERY MORNING, First dose on 02/14/19 at 0600, Until Discontinued, Routine losartan (COZAAR) tablet 50 mg 0758 ([facility] Hold - Provid er: Admin Adt - Reason: Transfer to a Procedural area)0900 (Automatically Held - Provider: Admin Adt)0957 ([facility] Unhold - Provider: Admin Adt)1006 (Given - Provider: Oxana salinas RN) 0903 (Given - Provider: Delma Campos nd, LONNIE)1436 ([facility] Hold - Provider: Admin Adt - Reason: Transfer to a Procedural area)1733 ([facility] Unhold - Provider: Admin Adt) 0838 (Given - Provider: Delma Campos nd, LONNIE) 50 mg, Oral, DAILY, First dose on Sat at 1715, Until Discontinued, Routine metoprolol (LOPRESSOR) tablet 12.5 mg (CANCELED) 0556 (Given - Provider: Omari Pollard RN)0758 ([facility] Hold - Provider: Admin Adt - [...] area)0900 (Automatically Held - Provider: Admin Adt)0957 ([facility] Unhold - Provider: Admin Adt) 0903 (Given - Provider: Delma Dotson RN)1436 ([facility] Hold - Provider: Admin Adt - Reason: Transfer to a Procedural area)1733 ([facility] Unhold - Provider: Admin Adt) 0838 (Given [...] (Given - Provider: Oxana Tran RN) 1436 ([facility] Hold - Provider: Admin Adt - Reason: Transfer to a Procedural area)1700 (Automatically Held - Provider: Admin Adt)1733 ([facility] Unhold - Provider: Admin Adt)1801 (Given - Provider: Delma Dotson RN) 5 mg, Oral, EVERY EVENING, First dose on 02/14/19 at 1700, Until Discontinued, Routine ticagrelor (BRILINTA) tablet 90 mg 0758 ([facility] Hold - Pr ovider: Admin Adt - Reason: Transfer to a Procedural area)0807 (Given - Provider: Steffany Morris RN)0957 ([facility] Unhold - Provider: Admin Adt)205 (Given - Provider: Alesha Gottlieb RN) 0903 (Given - Provider: Delma Campos nd RN)1436 ([facility] Hold - Provider: Admin Adt - Reason: Transfer to a Procedural area)1733 ([facility] Unhold - Provider: Admin Adt)2013 (Given - Provider: Alesha Gottlieb RN) 0838 (Given - Provider: Delma Dotson RN) 90 mg, Oral, 2 TIMES DAILY, First dose o n 02/13/19 at 2100, Until Discontinued, After initial loading dose of aspirin (usually 325 mg), use ticagrelor with daily maintenance dose of aspirin of 81 mg , Routine ubiquinone (coenzyme Q10) capsule 100 mg 0758 ([facility] Hol d - Provider: Admin Adt - Reason: Transfer to a Procedural area)0900 (Automatically Held - Provider: Admin Adt)0957 ([facility] Unhold - Provider: Admin Adt)1008 (Given - Provider: Oxana salinas RN) 0904 (Given - Provider: Delma Campos nd, RN)1436 ([facility] Hold - Provider: Admin Adt - Reason: Transfer to a Procedural area)1733 ([facility] Unhold - Provider: Admin Adt) 0850 (Given - Provider: Delma Campos nd, RN) 100 mg, Oral, DAILY, First dose on Sun 1 at 0900, Until Discontinued, Routine Continuous Medication Order 02/15/2019 02/16/2019 02/17/2019 nitroGLYcerin 50 mg in dextrose 5% 250 mL infusion 075 8 ([facility] Hold - Provider: Admin Adt - Reason: Transfer to a Procedural area)0800 (Stopped - Provider: Steffany Morris RN)0957 ([facility] Unhold - Provider: Admin Adt) 1436 ([facility] Hold - Provider: Admin Adt - Reason: Transfer to a Procedural area)1733 ([facility] Unhold - Provider: Admin Adt) 10 [...] provider, Routine sodium chloride 0.9% infusion 0758 ([facility] Hold - Provide r: Admin Adt - Reason: Transfer to a Procedural area)0957 ([facility] Unhold - Provider: Admin Adt) 1436 ([facility] Hold - Provider: Admin Adt - Reason: Transfer to a Procedural area)1733 ([facility] Unhold - Provider: Admin Adt) 50 mL/hr, at 50 mL/hr, Intravenous, CONT INUOUS, Starting 02/15/19 at 0000, Until Fri02/17/19 at 1749 sodium chloride 0.9% infusion () 1700 (New Bag - Provider: Daphne Linn RN)1823 (Stopped - Provider: Delma Dotson RN - Comment: IV infiltrate) 100 mL/hr, at 100 mL/hr, Intravenous, CO NTINUOUS, Starting 02/16/19 at 1715, Until Tu02/16/19 at 2214, Recovery (Recovery-Hospital Unit) PRN Medication Order 02/15/2019 02/16/2019 02/17/2019 acetaminophen (TYLENOL) tablet 1,000 mg 0758 ([facility] Hold - Provider: Admin Adt - Reason: Transfer to a Procedural area)0957 ([facility] Unhold - Provider: Admin Adt) 1436 ([facility] Hold - Provider: Admin Adt - Reason: Transfer to a Procedural area)1733 ([facility] Unhold - Provider: Admin Adt) 1,000 mg, Oral, EVERY 6 HOURS PRN, Start ing 02/13/19 at 1657, Until Fri02/17/19 at 1749, Pain, Maximum dose of acetaminophen is 4000 mg from all sources in 24 hours., Routine albuterol (PROVENTIL) nebulizer solution 2.5 mg 0758 ( [facility] Hold - Provider: Admin Adt - Reason: Transfer to a Procedural area)0957 ([facility] Unhold - Provider: Admin Adt) 1436 ([facility] Hold - Provider: Admin Adt - R miguel angel: Transfer to a Procedural area)1733 ([facility] Unhold - Provider: Admin Adt) 2.5 mg, Nebulization, EVERY 4 HOURS PRN, Starting 02/13/19 at 1657, Until Fri02/17/19 at 1749, Wheezing, Routine fentaNYL 50 mcg/mL multi-dose injection (CANCELED) 081 1 (Given - Provider: Bryce Duggan)0839 (Given - Provider: Bryce Duggan) ONCE PRN, Starting 02/15/19 at 0811, Until 02/15/19 at 0913, Intra- Operative (Intra-Procedure), Routine fentaNYL 50 mcg/mL multi-dose injection (CANCELED) 1459 (Given - Provider: Igor Ho RN)1628 (Given - Provider: Natali Gao, LONNIE) ONCE PRN, Starting 02/16/19 at 1459, Until Fri02/16/19 at 1733, Intra- Operative (Intra-Procedure), Routine heparin (porcine) injection (CANCELED) 0822 (Given - P rovider: Bryce Duggan)0840 (Given - Provider: Bryce Duggan) ONCE PRN, Starting Fri02/15/19 at 0822, Until Fri02/15/19 at 0913, Cath (Intra- Procedure), Routine heparin (porcine) injection (CANCELED) 1 534 (Given - Provider: Natali Gao RN) ONCE PRN, Starting Tu02/16/19 at 1534, Until Fri02/16/19 at 1733, Cath (Intra- Procedure), Routine iohexol (OMNIPAQUE) 350 mg/mL solution (CANCELED) 0911 (Given - Provider: Mere Abbasi MD) ONCE PRN, Starting Fri02/15/19 at 0911, Until Fri02/15/19 at 0913, Cath (Intra- Procedure), Routine iohexol (OMNIPAQUE) 350 mg/mL solution (CANCELED) 1643 (Given - Provider: Mere Abbasi MD) ONCE PRN, Starting Fri02/16/19 at 1643, Until Fri02/16/19 at 1733, Cath (Intra- Procedure), Routine midazolam (PF) (VERSED) multi-dose injection (CANCELED ) 0811 (Given - Provider: Bryce Duggan)0839 (Given - Provider: Bryce Duggan) ONCE PRN, Starting Fri02/15/19 at 0811, Until Fri02/15/19 at 0913, Cath (Intra- Procedure), Routine midazolam (PF) (VERSED) multi-dose injection (CANCELED) 1459 (Given - Provider: Igor Ho RN)1628 (Given - Provider: Igor Ho RN) ONCE PRN, Starting Fri02/16/19 at 1459, Until Fri02/16/19 at 1733, Cath (Intra- Procedure), Routine nitroGLYcerin [...] Fri02/15/19 at 0819, Until Fri02/15/19 at 0913, Cath (Intra- Procedure), Routine nitroGLYcerin 100 mcg/mL intracoronary dilution (CANCELED) 1531 (Given - Provider: Mere Abbasi MD)1554 (Given - Provider: Mere Abbasi MD) ONCE PRN, Starting Fri02/16/19 at 1531, Until Fri02/16/19 at 1733, Cath (Intra- Procedure), Routine sodium chloride 0.9% infusion (COMPLETED) 1541 (New Bag - Provider: Ruby Vital RN) CONTINUOUS PRN, Starting Fri02/16/19 at 1541, Until Discontinued, Cath (Intra-Procedure) verapamil (ISOPTIN) injection (CANCELED) 0819 (Given - Provider: Diego Meade) ONCE PRN, Starting 02/15/19 at 0819, Until 02/15/19 at 0913, Administer over 2 Minutes, Cath (Intra-Procedure) verapamil (ISOPTIN) injection (CANCELED) 1531 (Given - Provider: Mere Abbasi MD) ONCE PRN, Starting 02/16/19 at 1531, Until Fri02/16/19 at 1733, Administer over 2 Minutes, Cath (Intra-Procedure) documented in this encounter Care Teams Pediatric Audiologist Relationship Specialty Start Date End Date Quin Rojas MD PCP - General 04/03/[address] [place] [address] documented as of this encounter
--- OUTSIDE RECORDS SUMMARY | 2022-03-08 01:59 | XMS_ITS | Encounter Summary ---
:1945 Author Organization [facility] [place] [address] Care Team Providers Name Role Phone Quin Rojas MD Primary Care Provider Encounter Details Date Type Department Care Team Description 01/22/2018 Ext Surgery or [facility] Moose Barclay Chest pain, unspecified type; Single Event [facility] MD lEigio ASCVD (arteriosclerotic cardiovascular d isease) [address] [facility] [address] [id number] [phone] Social History Tobacco Use Types Packs/Day Years [...] 09/02/2022 Office Visit Cardiology Patrice Burkett MD [facility] [address] [place], [place] [address] (Wo rk) 11/25/2022 Office Visit Dermatology Kole Mccain MD [address] DERMATOLOGY [place], [place] [address] ([place]) documented as of this encounter Procedures Procedure Name Priority Date/Time Associated Diagnosis Comme nts ECG SCAN 01/23/2018 12:00 Results for this AM EDT procedure are i n the results section. NM EXERCISE STRESS Routine 01/22/2018 Chest pain, Results f or this AND REST MYOCARDIAL unspecified type procedure are in PERFUSION ASCVD the results (arteriosclerotic section. cardiovascular disease) documented in this encounter Results SCAN DOC: ECG (01/23/2018 12:00 AM EDT) Narrative 01/23/2018 12:00 AM EDT This result has an attachment that is no t available. Ordered by an unspecified provider. Scanning Provider MEDIA MGR SCAN EXT ORDR/RSLT NM Exercise Stress Myocardial Perfusion (01/22/2018) Anatomical Region Laterality Modality Other Narrative 01/22/2018 MIBI Exercise Stress Test- Final Report ?? Albina Thompson : 1945 [facility], [address] [place] [address] Primary Physician: ??Quin Rojas MD ??Indication: chest [...] mC MIBI, Spect-nikolay l Electronically signed: ??Moose william MD [facility] ??Date: 01/22/2018 Moose Barclay Jr., MD IM NM ORDERABLES documented in this encounter Visit Diagnoses Diagnosis Chest pain, unspecified type ASCVD (arteriosclerotic cardiovascular d isease) Unspecified cardiovascular disease documented in this encounter Care Teams Clinic Nurse Relationship Specialty Start Date End Date Quin Rojas MD PCP - General 04/03/[address] [place] [address] documented as of this encounter
--- OUTSIDE RECORDS SUMMARY | 2022-03-08 01:59 | XMS_ITS | Encounter Summary ---
:1945 Author Organization [facility] [place] [address] Care Team Providers Name Role Phone Quin Rojas MD Primary Care Provider Reason for Visit Reason Comments Follow-up Encounter Details Date Type Department Care Team Description 09/17/2012 Office Visit Dermatology Kole Mccain, Seborrheic keratosis [address] [facility] (Primary Dx) [address] [place], [place] DERMATOLOGY [address] [place] [address] [phone] (Wo rk) Social History Tobacco Use Types [...] encounter Progress Notes Kole Mccain MD - 09/17/2012 4:28 PM EDT Problem is recheck biopsy site. Albina follows up six days after having had a seborrheic keratosis removed by shave biopsy from her left superior shoulder and also one from near her right episcopal. She is concerned because the left shoulder site has a rim of redness around it and some central eschar that has built up. Physical examination shows actually a slightly inflamed but otherwise well healing seborrheic keratosis biopsy site. There is no drainage. There is no induration. It does not appear infected. The right episcopal site also appears to be healing well but is significantly less inflamed and less irritated. I think this is simply a function of rubbing of clothing, bra straps, etc., on the left shoulder site. Assessment and Plan: Status post shave biopsy/removal of sub K, left shoulder. a. Patient reassured. b. Would not recommend any change or intervention for this but simply cover with Telfa gauze and paper tape to protect it and expect another 10 days to go by before this will probably totally be healed. The patient did have some soreness associated with this initially but that is improving. Reassured her about the central eschar and the normal level of inflammation seen today on exam. Return to clinic here p.r.n. for new lesions/concerns. documented in this encounter Plan of Treatment Upcoming Encounters Date Type Specialty Care Team Description 09/02/2022 Office Visit Cardiology Patrice Burkett MD [facility] Medical [facility] [address] [place], [place] [address] (Wo rk) 11/25/2022 Office Visit Dermatology Kole Mccain MD [address] [facility] DERMATOLOGY [place], [place] [address] (Wo rk) documented as of this encounter Visit Diagnoses Diagnosis Seborrheic keratosis - Primary Other seborrheic keratosis documented in this encounter Care Teams Battery Assembler Dry Cell Relationship Specialty Start Date End Date Quin Rojas MD PCP - General 04/03/[address] [place], [place] [address] documented as of this encounter
--- OUTSIDE RECORDS SUMMARY | 2022-03-08 01:59 | XMS_ITS | Encounter Summary ---
:1945 Author Organization [facility] [place] [address] Care Team Providers Name Role Phone Quin Rojas MD Primary Care Provider Encounter Details Date Type Department Care Team Description 10/03/2015 Ancillary Procedure Radiology Library at Quin Biggs MD [facility] [id number] [place] [address] (Wo rk) [phone] Social History Tobacco Use Types Packs/Day Years Used Date Never Smoker Alcohol Use Standard Drinks/Week Comments No 0 [...] Patrice Burkett MD [facility] [address] [place], [place] [address] (Wo rk) 11/25/2022 Office Visit Dermatology Kole Mccain MD [address] DERMATOLOGY [place], [place] [address] (Wo rk) documented as of this encounter Procedures Procedure Name Priority Date/Time Associated Diagnosis Comme nts FILM LIBRARY Routine 10/03/2015 12:00 AM Results for this STORAGE ONLY MAMMO EDT procedure are in the results section. documented in this encounter Results Film Library- Storage Only Mammo (10/03/2015 12:00 AM EDT) Specimen (Source) Anatomical Location Collection Method / Collectio n Time Received Time / Laterality Volume Narrative [facility] - 02/29/2020 10:48 AM EDT This exam is auto-finalizing. It's purpo se is for storage only. Quin Rojas MD IMG FILM LIBRARY ORDERABLES Performing Organization Address City/State/ZIP Code Phon e Number [place], [place] documented in this encounter Visit Diagnoses Not on filedocumented in this encounter Care Teams Director Of Automation Relationship Specialty Start Date End Date Quin Rojas MD PCP - General 04/03/[address] [place] [address] documented as of this encounter
--- OUTSIDE RECORDS SUMMARY | 2022-03-08 01:59 | XMS_ITS | Encounter Summary ---
:1945 Author Organization [facility] [place] [address] Care Team Providers Name Role Phone Quin Rojas MD Primary Care Provider Encounter Details Date Type Department Care Team Description 11/10/2018 Telephone Cardiology at [facility] Moose Barclay Jr., MD [address] [facility] [address] [place] [address] [place] [address] [phone] (Wo rk) Social History Tobacco Use Types [...] Telephone Encounter - Niki Kimball RN - 11/11/2018 9:32 AM EDT Left VM requesting call back to read DRUG NAME off the prescription bottle. Telephone Encounter - Moose Barclay Jr., MD - 11/10/2018 3:20 PM EDT I am still confused as to which pill she actually has- have her read it off the bottle- she should restart whatever she has Telephone Encounter - Chito Brooks RN - 11/10/2018 2:51 PM EDT Patient called wanted to make sure it was the Atenolol you wanted her to start, no the metoprolol. If she is to start the Atenolol she said she will need a script. (Alex Enciso in [facility]). Telephone Encounter - Isa Morales - 11/10/2018 2:42 PM EDT Patient was seen today and in looking at her AVS she would like clarification concerning her metoprolol and atenolol. She will be going to a 4 o'clock appointment later. Please call her back . documented in this encounter Plan of Treatment Upcoming Encounters Date Type Specialty Care Team Description 09/02/2022 Office Visit Cardiology Patrice Burkett MD [facility] [address] [place] [address] (Wo rk) 11/25/2022 Office Visit Dermatology Kole Mccain MD [address] [place] [address] DERMATOLOGY [place], [place] [address] (Wo rk) documented as of this encounter Visit Diagnoses Diagnosis Essential hypertension Unspecified essential hypertension Palpitations documented in this encounter Care Teams City Secretary Relationship Specialty Start Date End Date Quin Rojas MD PCP - General 04/03/[address] [place] [address] [address] [facility] [[email or web address] [address] [place] [address] documented as of this encounter
--- OUTSIDE RECORDS SUMMARY | 2022-03-08 01:59 | XMS_ITS | Encounter Summary ---
:1945 Author Organization [facility] [place] [address] Care Team Providers Name Role Phone Quin Rojas MD Primary Care Provider Encounter Details Date Type Department Care Team Description 02/13/2019 Telephone Cardiology Patrice Dick MD [facility] [place] [address] CARDIOLOGY DEPT [phone] [place] [id number] (Wo rk) Social History Tobacco Use Types [...] Telephone Encounter - Patrice Dick MD - 02/13/2019 11:[address] Khan calling from [place] ED with progressive exertional dyspnea.. History of CAD with previous stenting to mid LAD in 2004. MPI one year ago with normal perfusion but inferior ST depressions with max effort. Was recently seen by Dr. Burkett. Scheduled for cath recently for crescendo angina despite max medical management. However she has been declining cath. Now presenting with progressive symptoms desire tohave the procedure after all. Currently chest pain free, first trop negative. Vitals stable. ECG shows sinus tachycardia. Agreed for transfer to Dr. Hua's service for urgent (not emergent) heart catheterization and presumed diagnosis of unstable angina. documented in this encounter Plan of Treatment Upcoming Encounters Date Type Specialty Care Team Description 09/02/2022 Office Visit Cardiology Patrice Burkett MD [facility] Medical [facility] [address] [place] [address] (Wo rk) 11/25/2022 Office Visit Dermatology Kole Mccain MD [address] [facility] DERMATOLOGY [place], [place] [address] (Wo rk) documented as of this encounter Visit Diagnoses Not on filedocumented in this encounter Care Teams Rubber Attacher Relationship Specialty Start Date End Date Quin Rojas MD PCP - General 04/03/[address] [place] [address] documented as of this encounter
--- OUTSIDE RECORDS SUMMARY | 2022-03-08 01:59 | XMS_ITS | Encounter Summary ---
:1945 Author Organization [facility] [place] [address] Care Team Providers Name Role Phone Quin Rojas MD Primary Care Provider Reason for Visit Reason Comments Follow-up Skin Check Encounter Details Date Type Department Care Team Description 05/01/2018 Office Visit Dermatology at Kole Mccain, Ocular rosacea; Barak JIMENEZ Seborrheic keratosis; [address] [address] Epidermal cyst Eladio B DERMATOLOGY [place], [place] [id number] [phone] Social History Tobacco Use Types Packs/Day Years [...] encounter Progress Notes Kole Mccain MD - 05/01/2018 3:45 PM EST Problem: 1. New lesions of concern Albina follows up after last being seen 2 months ago. She is concerned about her her right cheek andabove her right eye. Her doxycycline is working well for her. 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 She hasa follicular cyst on the right mid jawline somewhat laterally. It measures about a centimeter in diameter. There is no evident malignant malignant lesions. 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 Patient tolerating doxycycline fairly well with some minor stomach upset 2. Discussed means to reduce this. 3. Continue current dosing 50 mg 1 p.o. daily she was given a one year supply in February 2018 Follicular cyst right cheek 1. We will schedule a 30-minute point for excision of this in the near future. Solar lentigo's dorsal hands 1. Could consider LN 2 treatment to the sites. Follicular seborrheic keratosis left anabaptist 1. Could consider LN 2 treatment to the sites. CC: Quin Rojas MD documented in this encounter Plan of Treatment Upcoming Encounters Date Type Specialty Care Team Description 09/02/2022 Office Visit Cardiology Patrice Burkett MD [facility] Medical [facility] [address] [place], [place] [address] (Wo rk) 11/25/2022 Office Visit Dermatology Kole Mccain MD [address] [facility] DERMATOLOGY [place], [place] [address] (Wo rk) documented as of this encounter Visit Diagnoses Diagnosis Ocular rosacea Rosacea Seborrheic keratosis Other seborrheic keratosis Epidermal cyst Sebaceous cyst documented in this encounter Care Teams Steel Melter Relationship Specialty Start Date End Date Quin Rojas MD PCP - General 04/03/[address] [place] [address] documented as of this encounter
--- OUTSIDE RECORDS SUMMARY | 2022-03-08 01:59 | XMS_ITS | Encounter Summary ---
:1945 Author Organization [facility] [place] [address] Care Team Providers Name Role Phone Quin Rojas MD Primary Care Provider Encounter Details Date Type Department Care Team Description 01/05/2018 Telephone Cardiology at [facility] Moose Barclay Jr., MD [address] [facility] [address] [place] [address] [place] [address] [phone] (Wo rk) Social History Tobacco Use Types [...] Notes Telephone Encounter - Arlene Bills - 01/07/2018 9:28 AM EDT Exercise Mibi scheduled 01/22/18 7:30 Pt informed Telephone Encounter - Moose Barclay Jr., MD - 01/06/2018 2:02 PM EDT Called and discussed with patient- she had a bad reaction to persantine- does not want a chemical stress test Reassured her that will be doing an exercise stress test Telephone Encounter - Liv Luis RN - 01/05/2018 1:36 PM EDT She wants to put off her stress test because she needs to deal with her husbands surg that is comingup, (although she mentioned that it isnt till the end of the year). She feels like this has been going on for a long time and she needs to worry about her first. She also wanted to know if Dr. Barclay received all the notes from Dr. Tran because she doesn't do well with medications and didn't respond well during the stress test. She also wanted to know if Dr. Barclay felt from her exam and history that she should not pospone the test. Telephone Encounter - Arlene Bills - 01/05/2018 10:[address] Barclay saw Pt on 01/01/2018 and ordered a Mibi. She wants to put this on hold for now. She does have some questions from her visit of last week. [phone] documented in this encounter Plan of Treatment Upcoming Encounters Date Type Specialty Care Team Description 09/02/2022 Office Visit Cardiology Patrice Burkett MD [facility] [address] [place] [address] ([place]) 11/25/2022 Office Visit Dermatology Kole Mccain MD [address] [place] [address] DERMATOLOGY [place], [place] [address] (Wo rk) documented as of this encounter Visit Diagnoses Not on filedocumented in this encounter Care Teams Beveller Operator Relationship Specialty Start Date End Date Quin Rojas MD PCP - General 04/03/[address] [place] [address] documented as of this encounter
--- OUTSIDE RECORDS SUMMARY | 2022-03-08 01:59 | XMS_ITS | Encounter Summary ---
:1945 Author Organization [facility] [place] [address] Care Team Providers Name Role Phone Quin Rojas MD Primary Care Provider Reason for Visit Reason Comments Follow-up SOB with Activity Encounter Details Date Type Department Care Team Description 10/14/2018 Office Visit Cardiology at [facility] [place] coronary artery of [place] heart with stable angina pectoris; Barak Del Valle MD Essential hypertension [address] [facility] [place] [address] [phone] Social History Tobacco Use Types Packs/Day Years [...] Sign Reading Time Taken Comments Blood Pressure 132/62 10/14/2018 8:27 AM EDT Pulse 66 10/14/2018 8:18 AM EDT per ekg Temperature - - Respiratory Rate - - Oxygen Saturation - - Inhaled Oxygen Concentration - - Weight 68.9 kg (152 lb) 10/14/2018 8:18 AM EDT Height 157.5 cm (5' 2) 10/14/2018 8:18 AM EDT Body Mass Index 27.8 10/14/2018 8:18 AM EDT documented in this encounter Progress Notes [facility] Jr., MD - 10/14/2018 8:20 AM EDT Subjective: Patient ID: Albina Thompson is a 73 y.o. female. Chief Complaint Patient presents with ??? Follow-up SOB with Activity HPI She continues to have chest tightness, dyspnea and discomfort with activity. It is worse with arm activity but also occurs with walking up hill or carrying something. It relieves with rest or NTG. Taking NTG before activity does not make as much difference. Her inhaler does not help. It has been interfering with he doing her spring chores. She has had no palpitations or dizziness. She denies edema Review of Systems no cough or sputum Allergies Allergen Reactions ??? Iodine And Iodide Containing Products ??? Percocet [Oxycodone-Acetaminophen] Other (See Comments) All pain medications ??? Pneumax [Phenylephrine-Guaifenesin] Rash Swelling ??? Persantine [Dipyridamole] ??? Povidone-Iodine ??? Shellfish Derived crushing chest pain ??? Simvastatin myalgia ??? Thallium-201 Current Outpatient Medications Medication Sig Dispense Refill ??? vit A/C/E ac/ZnOx/cupric oxide (EYE VITAMIN AND MINERALS ORAL) Take 1 capsule by mouth daily. ??? metoprolol succinate (TOPROL-XL) 25 mg Tablet Sustained Release 24 hr Take 1 tablet by mouth daily. 90 tablet 3 ??? losartan (COZAAR) 100 mg Tablet Take 1 tablet by mouth daily. 90 tablet 3 ??? fluticasone (FLONASE) 50 mcg/actuation [place], Suspension 2 sprays by Each Nare route nightly. ??? ALBUTEROL INHL Inhale 1-2 puffs into the lungs as needed. ??? cyclobenzaprine (FLEXERIL) 5 mg Tablet Take 5 mg by mouth 3 times daily as needed for Muscle spasms. ??? cycloSPORINE (RESTASIS) 0.05 % Dropperette 1 drop 2 times daily. ??? albuterol (PROVENTIL) 2.5 mg /3 mL (0.083 %) Solution for Nebulization Take 2.5 mg by nebulization every 4 hours as needed for Wheezing. ??? rosuvastatin (CRESTOR) 5 mg Tablet Take 5 mg by mouth daily. ??? aspirin 81 [...] ??? Essential hypertension ??? Coronary atherosclerosis of [place] coronary artery 2005: 2 stents to mid LAD and stent to osteal D2 (bifurcation lesion) at [facility] 01/2018- ST II, HR 126, BP 203/72, CP, 1 mm inf and lat ST depressions, normal perfusion and wall notion ??? Asthma ??? Hyperlipidemia ??? Posterior tibial tendon dysfunction ??? Ocular rosacea Objective: Physical Exam BP 132/62 (BP Location (NBP): Left arm, Patient Position: Standing) Pulse 66 Comment: per ekg Ht157.5 cm (5' 2) Wt 68.9 kg (152 lb) BMI 27.80 kg/m?? NAD No JVD/HJR Chest clear, no wheezing Cor RR, no murmur Abd benign Ext no edema EKG: NSR 66, normal ST segments Assessment and Plan: We discussed a trial of further medication or cath and possible PCI- she would prefer a trial of medication first- she will start amlodipine 5 mg a day BP controlled Phone check 2 week to see if she is better with the medication adjustment documented in this encounter Plan of Treatment Upcoming Encounters Date Type Specialty Care Team Description 09/02/2022 Office Visit Cardiology Patrice Burkett MD [facility] [place] [address] (Wo rk) 11/25/2022 Office Visit Dermatology Kole Mccain MD [address] [facility] DERMATOLOGY [place], [place] [address] (Wo rk) documented as of this encounter Procedures Procedure Name Priority Date/Time Associated Diagnosis Comme nts ECG SCAN 10/23/2018 12:00 AM Results for this EDT procedure are i n the results section . documented in this encounter Results SCAN DOC: ECG (10/23/2018 12:00 AM EDT) Narrative 10/23/2018 12:00 AM EDT This result has an attachment that is no t available. Ordered by an unspecified provider. Scanning Provider MEDIA MGR SCAN EXT ORDR/RSLT documented in this encounter Visit Diagnoses Diagnosis Atherosclerosis of [place] coronary arter y of [place] heart with stable angina pectoris Essential hypertension Unspecified essential hypertension documented in this encounter Care Teams Manager Clinic Relationship Specialty Start Date End Date Quin Rojas MD PCP - General 04/03/[address] [place] [address] documented as of this encounter
--- OUTSIDE RECORDS SUMMARY | 2022-03-08 01:59 | XMS_ITS | Encounter Summary ---
:1945 Author Organization [facility] [address] Care Team Providers Name Role Phone Quin Rojas MD Primary Care Provider Encounter Details Date Type Department Care Team Description 12/09/2018 Telephone Cardiology at [facility] Barclay Jr., MD [address] [facility] [address] [place] [address] [place] [address] [phone] (Wo rk) Social History Tobacco Use Types [...] Telephone Encounter - Chito Brooks RN - 12/09/2018 3:48 PM EDT Please refer to phone note from yesterday. Telephone Encounter - Arlene Bills - 12/09/2018 3:38 PM EDT Albina called reporting her BP for today 3:[address] Burkett asked hr to report Right arm 114/60 Left arm 126/62 Few irregulars on Heart rate Still very tired and really dizzy # [phone] documented in this encounter Plan of Treatment Upcoming Encounters Date Type Specialty Care Team Description 09/02/2022 Office Visit Cardiology Patrice Burkett MD [facility] [place] [address] (Wo rk) 11/25/2022 Office Visit Dermatology Kole Mccain MD [address] [facility] DERMATOLOGY [place], [place] [address] (Wo rk) documented as of this encounter Visit Diagnoses Not on filedocumented in this encounter Care Teams Family Support Specialist Relationship Specialty Start Date End Date Quin Rojas MD PCP - General 04/03/[address] [place] [address] documented as of this encounter
--- OUTSIDE RECORDS SUMMARY | 2022-03-08 01:59 | XMS_ITS | Encounter Summary ---
:1945 Author Organization [facility] [place] [address] Care Team Providers Name Role Phone Quin Rojas MD Primary Care Provider Encounter Details Date Type Department Care Team Description 11/29/2014 Orders Only Orthopaedics at [facility] Juliocesar Bone MD [facility] [place] [address] ORTHOPAEDIC SURGERY [phone] [place], [place] [address] (Wo rk) Social History Tobacco [...] 09/02/2022 Office Visit Cardiology Patrice Burkett MD [facility] [address] [place] [address] (Wo rk) 11/25/2022 Office Visit Dermatology Kole Mccain MD [address] [place] [address] DERMATOLOGY [place], [place] [address] (Wo rk) documented as of this encounter Procedures Procedure Name Priority Date/Time Associated Diagnosis Comme nts FILM LIBRARY Routine 11/29/2014 9:52 PM Results f or this STORAGE ONLY DX EDT procedure ar e in LOWER EXTREMITY the results section. documented in this encounter Results Film Library- Storage only DX Lower Extremity (11/29/2014 9:52 PM EDT) Anatomical Region Laterality Modality Other Specimen (Source) Anatomical Collection Method Collection Time Re ceived Time Location / / Volume Laterality 11/29/2014 9:52 PM EDT Narrative 12/22/2014 9:52 PM EDT This is a Non-reportable exam Procedure Note GAGE, UNSIGNED REPORT - 12/22/2014Formatt ing of this note might be different from the original. This is a Non-reportable exam Juliocesar Bone MD IMG FILM LIBRARY ORDERABLES documented in this encounter Visit Diagnoses Not on filedocumented in this encounter Care Teams Trauma Doctor Relationship Specialty Start Date End Date Quin Rojas MD PCP - General 04/03/[address] [place] [address] documented as of this encounter
--- OUTSIDE RECORDS SUMMARY | 2022-03-08 01:59 | XMS_ITS | Encounter Summary ---
:1945 [place] [address] Care Team Providers Name Role Phone Quin Rojas MD Primary Care Provider Encounter Details Date Type Department Care Team Description 04/21/2014 Ancillary Procedure Radiology Library at Quin Biggs MD [facility] [id number] [place] [address] (Wo rk) [phone] Social History Tobacco Use Types Packs/Day Years [...] Cardiology Patrice Burkett MD [facility] [address] [place], [place] [address] (Wo rk) 11/25/2022 Office Visit Dermatology Kole Mccain MD [address] [place] [address] DERMATOLOGY [place], [place] [address] (Wo rk) documented as of this encounter Procedures Procedure Name Priority Date/Time Associated Diagnosis Comme nts FILM LIBRARY Routine 04/21/2014 12:00 AM Results for this STORAGE ONLY MAMMO EST procedure are in the results section. documented in this encounter Results Film Library- Storage Only Mammo (04/21/2014 12:00 AM EST) Specimen (Source) Anatomical Location Collection Method / Collectio n Time Received Time / Laterality Volume Narrative [facility] - 02/29/2020 10:49 AM EDT This exam is auto-finalizing. It's purpo se is for storage only. Quin Rojas MD IMG FILM LIBRARY ORDERABLES Performing Organization Address City/State/ZIP Code Phon e Number [place], [place] documented in this encounter Visit Diagnoses Not on filedocumented in this encounter Care Teams Hand Printed Circuit Board Assembler Relationship Specialty Start Date End Date Quin Rojas MD PCP - General 04/03/[address] [place] [address] documented as of this encounter
--- OUTSIDE RECORDS SUMMARY | 2022-03-08 01:59 | XMS_ITS | Encounter Summary ---
:1945 Author Organization [facility] [place] [address] Care Team Providers Name Role Phone Quin Rojas MD Primary Care Provider Reason for Visit Reason Comments Follow-up f/u after c/o palpitations, diarrhea and chest discomfort, stopped 3 of her heart meds about a week ago Encounter Details Date Type Department Care Team Description 11/10/2018 Office Visit Cardiology at [facility] ASCVD (arter iosclerotic cardiovascular disease); Barak Del Valle MD Essential hypertension; [address] [facility] [facility] Diar oralia, unspecified type [place] [address] [phone] Social History Tobacco Use Types Packs/Day Years [...] Sign Reading Time Taken Comments Blood Pressure 160/78 11/10/2018 1:41 PM EDT Pulse 80 11/10/2018 1:41 PM EDT Temperature - - Respiratory Rate - - Oxygen Saturation - - Inhaled Oxygen Concentration - - Weight 67.1 kg (148 lb) 11/10/2018 1:41 PM EDT Height 157.5 cm (5' 2) 11/10/2018 1:41 PM EDT Body Mass Index 27.07 11/10/2018 1:41 PM EDT documented in this encounter Progress Notes [facility] Jr., MD - 11/10/2018 1:40 PM EDT Subjective: Patient ID: Albina Thompson is a 73 y.o. female. Chief Complaint Patient presents with ??? Follow-up f/u after c/o palpitations, diarrhea and chest discomfort, stopped 3 of her heart meds about a weekago HPI She has been under increased stress with her 's illness and developed palpitations and diarrhea. By 10/30 she was so weak from diarrhea that she went to the ER. Labs and CXR were ok.She had no arrhythmias in the ER. She was IV hydrated and felt better but the diarrhea continued. She stopped atenolol, amlodipine and losartan last week and the diarrhea stopped. She has had increased angina off the meds, treated with NTG or stopping and resting. Review of Systems no abdominal pain, no fever, chills, denies other issues Allergies Allergen Reactions ??? Iodine And Iodide Containing Products ??? Percocet [Oxycodone-Acetaminophen] Other (See Comments) All pain medications ??? Pneumax [Phenylephrine-Guaifenesin] Rash Swelling ??? Persantine [Dipyridamole] ??? Povidone-Iodine ??? Shellfish Derived crushing chest pain ??? Simvastatin myalgia ??? Thallium-201 Current Outpatient Medications Medication Sig Dispense Refill ??? nitroGLYcerin (NITROSTAT) 0.4 mg Tablet, Sublingual Place 1 tablet under the tongue every 5 minutes as needed for Chest pain. 90 tablet 3 ??? vit A/C/E ac/ZnOx/cupric oxide (EYE VITAMIN AND MINERALS ORAL) Take 1 capsule by mouth daily. ??? fluticasone (FLONASE) 50 mcg/actuation [place], Suspension 2 sprays by Each Nare route [...] mcg tablet 75mcg, PO, Once daily ??? atenolol (TENORMIN) 25 mg Tablet Take 12.5 mg by mouth daily. ??? amLODIPine (NORVASC) 2.5 mg Tablet Take 2.5 mg by mouth daily. ??? losartan (COZAAR) 100 mg Tablet Take 1 tablet by mouth daily. (Patient not taking: Reported on 11/10/2018) 90 tablet 3 No current facility-administered medications for this visit. Patient Active Problem List Diagnosis ??? Hypothyroidism ??? Essential hypertension ??? Coronary atherosclerosis of [place] coronary artery 2005: 2 stents to mid LAD and stent to osteal D2 (bifurcation lesion) at [facility] 01/2018- ST II, HR 126, BP 203/72, CP, 1 mm inf and lat ST depressions, normal perfusion and wall notion ??? Asthma ??? Hyperlipidemia ??? Posterior tibial tendon dysfunction ??? Ocular rosacea Objective: Physical Exam BP 160/78 (BP Location (NBP): Right arm, Patient Position: Sitting) Pulse 80 Ht 157.5 cm (5' 2) Wt 67.1 kg (148 lb) BMI 27.07 kg/m?? NAD No JVD/HJR Chest clear Cor RR, no murmur Abd benign Ext no edema Assessment and Plan: Presumably the combination of losartan, amlodipine and atenolol caused the diarrhea, possibly made worse by her stress. She needs medication for her angina as well as her BP- I will try restarting atenolol and amlodipine and see how she does. If she continues to have limiting angina cath would be the next step. She is to use NTG as necessary for pain HTN- see above Phone check 1 week to see how she is doing documented in this encounter Plan of Treatment Upcoming Encounters Date Type Specialty Care Team Description 09/02/2022 Office Visit Cardiology Patrice Burkett MD [facility] [address] [place], [place] [address] (Wo rk) 11/25/2022 Office Visit Dermatology Kole Mccain MD [address] [facility] DERMATOLOGY [place], [place] [address] (Wo rk) documented as of this encounter Visit Diagnoses Diagnosis ASCVD (arteriosclerotic cardiovascular d isease) Unspecified cardiovascular disease Essential hypertension Unspecified essential hypertension Diarrhea, unspecified type documented in this encounter Care Teams Hoop Rolls Operator Relationship Specialty Start Date End Date Quin Rojas MD PCP - General 04/03/[address] [place] [address] documented as of this encounter
--- OUTSIDE RECORDS SUMMARY | 2022-03-08 01:59 | XMS_ITS | Encounter Summary ---
:1945 [place] [address] Care Team Providers Name Role Phone Quin Rojas MD Primary Care Provider Encounter Details Date Type Department Care Team Description 01/19/2019 Telephone Cardiology at [facility] Patrice Burkett MD [address] [place] [address] [place] [address] [place] [address] [phone] (Wo rk) Social History Tobacco Use Types [...] Telephone Encounter - Niki Kimball RN - 01/20/2019 12:04 PM EDT Left VM to paraphrase Dr. Burkett' response: he is uncertain of what is causing these symptoms. Please note if they continue or worsen. This will be reviewed again at the April 06 3 pm appointment Telephone Encounter - Niki Kimball RN - 01/19/2019 5:32 PM EDT S Patient called requesting results of echo and complaining of malaise. B Echo was done yesterday. Read by Dr. Burkett. Results - normal ventricular anatomy and function, leftatrium normal, right atrium is slightly larger, and healthy heart function noted. Patient was audibly relieved and her vocal pitch dropped when informed of the results. Patient reports to this nurse, as she did to clinical medical assistant secretary, of weakness, felling tire, feeling shaky. I haven't felt right, well, all week. Today I feel almost like it is a panic attack, but I don't get panic attacks....later when drying to elicit from her these sensations, she describes a lump in my throat and weakness in her arms. She has checked BP multiple times today at home. She reports 100/43 and pulse of 73, but 15 minutes later the result was normal. Patient has no fever, changes in medication, changes in diet, or other items to report. Confirmation: she is taking metoprolol and losartan as prescribed. She is not using albuterol inhaler excessively. She denies weakness or muscle aches in her legs. A Patient and I spoke for more than 10 minutes. Patient's tone sounded more normal in speaking voice than at the beginning of the call. Patient is accepting of this plan: R Will forward her subjective complaints for Dr. Burkett to note. If suggestions or recommendations come from Dr. Burkett, this office will be in contact with her. This may happen tomorrow. Telephone Encounter - Isa Morales - 01/19/2019 4:44 PM EDT Patient is looking for the results of the echo done yesterday. Also, she has not been feeling well today at all. She is weak, tired, shaky and her blood pressure is down. Please call her back at [phone]. documented in this encounter Plan of Treatment Upcoming Encounters Date Type Specialty Care Team Description 09/02/2022 Office Visit Cardiology Patrice Burkett MD [facility] [address] [place], [place] [address] (Wo rk) 11/25/2022 Office Visit Dermatology Kole Mccain MD [address] [place] [address] DERMATOLOGY [place], [place] [address] (Wo rk) documented as of this encounter Visit Diagnoses Not on filedocumented in this encounter Care Teams Software Business Analyst Relationship Specialty Start Date End Date Quin Rojas MD PCP - General 04/03/[address] [place] [address] documented as of this encounter
--- OUTSIDE RECORDS SUMMARY | 2022-03-08 01:59 | XMS_ITS | Encounter Summary ---
:1945 Author Organization [facility] [place] [address] Care Team Providers Name Role Phone Quin Rojas MD Primary Care Provider Reason for Visit Reason Comments Skin Check Encounter Details Date Type Department Care Team Description 01/23/2012 Office Visit Dermatology Kole Mccain, Seborrheic dermatitis (Prima ry Dx); [address] [facility] MD [place]; [address] [facility] [address] Verruca vulgaris [place], [place] DERMATOLOGY [address] [place] [address] [phone] (Wo rk) Social History Tobacco Use Types [...] encounter Progress Notes Kole Mccain MD - 01/23/2012 1:54 PM EDT Dictated documented in this encounter Miscellaneous Notes Miscellaneous - Ronnie, Manager Fitness - 01/29/2012 12:45 PM EDT documented in this encounter Plan of Treatment Upcoming Encounters Date Type Specialty Care Team Description 09/02/2022 Office Visit Cardiology Patrice Burkett MD [facility] er [place], [place] [address] (Wo rk) 11/25/2022 Office Visit Dermatology Kole Mccain MD [address] [place] [address] DERMATOLOGY [place], [place] [address] (Wo rk) documented as of this encounter Visit Diagnoses Diagnosis Seborrheic dermatitis - Primary Seborrheic dermatitis, unspecified Rosacea Verruca vulgaris Viral warts, unspecified documented in this encounter Care Teams Manager Care Relationship Specialty Start Date End Date Quin Rojas MD PCP - General 04/03/[address] [place] [address] documented as of this encounter
--- OUTSIDE RECORDS SUMMARY | 2022-03-08 01:59 | XMS_ITS | Encounter Summary ---
:1945 Author Organization [facility] [place] [address] Care Team Providers Name Role Phone Quin Rojas MD Primary Care Provider Encounter Details Date Type Department Care Team Description 02/26/2018 Telephone Cardiology at [facility] Moose Barclay Jr., MD [address] [facility] [address] [facility] [place] [address] [place] [address] [phone] (Wo rk) Social History Tobacco Use Types [...] Telephone Encounter - Chito Brooks RN - 02/27/2018 9:43 AM EDT Called patient and let her know. Telephone Encounter - Moose Barclay Jr., MD - 02/26/2018 4:58 PM EDT Losartan will not cause palpitations Increase metoprolol to 25 mg Telephone Encounter - Chito Brooks, RN - 02/26/2018 4:25 PM EDT Called and spoke to patient, she reports she feels she has been having increased palpitations. She was wondering if having the extra Losartan could be causing it? She denies any increased SOB with the palpitations. Today's BP was 140/81 with pulse of 87. Telephone Encounter - Isa Morales - 02/26/2018 4:02 PM EDT Patient called to say she has been checking her heart beats with her blood pressure machine and about half the time it is regular. She still has palpitations. Please call her back at [phone]. documented in this encounter Plan of Treatment Upcoming Encounters Date Type Specialty Care Team Description 09/02/2022 Office Visit Cardiology Patrice Burkett MD [facility] [address] [place], [place] [address] (Wo rk) 11/25/2022 Office Visit Dermatology Kole Mccain MD [address] [facility] DERMATOLOGY [place], [place] [address] (Wo rk) documented as of this encounter Visit Diagnoses Not on filedocumented in this encounter Care Teams Concrete Worker Relationship Specialty Start Date End Date Quin Rojas MD PCP - General 04/03/[address] [place] [address] documented as of this encounter
--- OUTSIDE RECORDS SUMMARY | 2022-03-08 01:59 | XMS_ITS | Encounter Summary ---
:1945 Author Organization [facility] [place] [address] Care Team Providers Name Role Phone Quin Rojas MD Primary Care Provider Encounter Details Date Type Department Care Team Description 01/18/2019 Interpretation Only [facility] Patrice Burkett Atherosclerosis of Juan Carlos Piedra MD [place] coronary artery [address] [facility] heart with [facility] [place] [address] [phone] Social History Tobacco Use Types Packs/Day Years [...] Visit Cardiology Patrice Burkett MD [facility] Dr [place], [place] [address] (Wo rk) 11/25/2022 Office Visit Dermatology Kole Mccain MD [address] DERMATOLOGY [place], [place] [address] (Wo rk) documented as of this encounter Visit Diagnoses Diagnosis Atherosclerosis of [place] coronary arter y of [place] heart with stable angina pectoris documented in this encounter Care Teams Injection Molding Supervisor Relationship Specialty Start Date End Date Quin Rojas MD PCP - General 04/03/[address] [place] [address] documented as of this encounter
--- OUTSIDE RECORDS SUMMARY | 2022-03-08 01:59 | XMS_ITS | Encounter Summary ---
:1945 Author Organization [facility] [place] [address] Care Team Providers Name Role Phone Quin Rojas MD Primary Care Provider Encounter Details Date Type Department Care Team Description 01/23/2018 Telephone Cardiology at [facility] Moose Barclay Jr., MD [address] [facility] [address] [place] [address] [place] [address] [phone] (Wo rk) Social History Tobacco Use Types [...] this encounter Miscellaneous Notes Telephone Encounter - Anneliese Barclay RN - 01/26/2018 9:32 AM EDT Spoke at great length with pt. States she in not taking atenolol. She is taking Toprol xl 12.5 mg daily. Verified that with the pharmacy. Changed the med list. Told her we would order losartan and toprol xl for her when needed. Also states she had some palpitations yesterday. Will keep track and let us know if it increases. States her BP is lower with increase in losartan. Telephone Encounter - Isa Morales - 01/23/2018 11:16 AM EDT Patient called because she would like Dr Barclay to prescribe her cardiac medications. Is that something he can do? She uses [facility] in [facility] although she said the pharmacy was bought by [facility]. Told patient that the doctor was not in today and it would be Friday or Friday of next week before someone could get back to her. Please call her back at [phone] documented in this encounter Plan of Treatment Upcoming Encounters Date Type Specialty Care Team Description 09/02/2022 Office Visit Cardiology Patrice Burkett MD [facility] [address] [place], [place] [address] (Wo rk) 11/25/2022 Office Visit Dermatology Kole Mccain MD [address] [place] [address] DERMATOLOGY [place], [place] [address] (Wo rk) documented as of this encounter Visit Diagnoses Not on filedocumented in this encounter Care Teams Grades 9 Thru 12 Visiting Teacher Relationship Specialty Start Date End Date Quin Rojas MD PCP - General 04/03/[address] [place] [address] documented as of this encounter
--- OUTSIDE RECORDS SUMMARY | 2022-03-08 01:59 | XMS_ITS | Encounter Summary ---
:1945 Author Organization [facility] [place] [address] Care Team Providers Name Role Phone Quin Rojas MD Primary Care Provider Reason for Visit Reason Comments Follow-up 1 month F/U Palpitations, Me dication check Encounter Details Date Type Department Care Team Description [facility] Atheroscl erosis of [place] JIM[place]Z [place] coronary artery 580 [facility] heart with [facility] stable angina pectoris [place] [phone] Social History Tobacco Use Types [...] Sign Reading Time Taken Comments Blood Pressure 121/56 01/04/2019 2:45 PM EDT Pulse 72 01/04/2019 2:43 PM EDT per ekg Temperature - - Respiratory Rate - - Oxygen Saturation - - Inhaled Oxygen Concentration - - Weight 67.6 kg (149 lb) 01/04/2019 2:43 PM EDT Height 157.5 cm (5' 2) 01/04/2019 2:43 PM EDT Body Mass Index 27.25 01/04/2019 2:43 PM EDT documented in this encounter Progress Notes Patrice Burkett MD - 01/04/2019 2:40 PM EDT Subjective: Patient ID: Albina Thompson is a 73 y.o. female. Chief Complaint Patient presents with ??? Follow-up 1 month F/U Palpitations, Medication check HPI 73 F presents for f/u of stable angina. Last seen 12/07/18, at which time Imdur was initiated. However, she had lightheadedness, dizziness, and hypotension, and thus it was discontinued. To recall, she was previously on norvasc but this was also not tolerated. She remains on toprol. Since then, she has continued with CCS III angina, sometimes having to stop multiple times on the way to get her mail. Denies dyspnea, orthopnea, pnd, weight gain. Endorses palpitations from time to time, but not affecting her QOL. Endorses labile BP, with SBP sometimes as low as 90s accompanied by dizziness; however, it has been noted to go as high as 150s. Review of Systems 11 point ros either negative or per hpi Allergies Allergen Reactions ??? Iodine And Iodide Containing Products ??? Percocet [Oxycodone-Acetaminophen] Other (See Comments) All pain medications ??? Pneumax [Phenylephrine-Guaifenesin] Rash Swelling ??? Persantine [Dipyridamole] ??? Povidone-Iodine ??? Shellfish Derived crushing chest pain ??? Simvastatin myalgia ??? Thallium-201 Current Outpatient Medications Medication Sig Dispense Refill ??? acetaminophen (TYLENOL) 500 mg Tablet Take 1,000 mg by mouth every 6 hours as needed for Pain. ??? rosuvastatin (CRESTOR) 20 mg Tablet Take 1 tablet by mouth daily. 90 tablet 3 ??? losartan (COZAAR) 50 mg Tablet Take 1 tablet by mouth daily. 90 tablet 3 ??? VENTOLIN HFA 90 mcg/actuation HFA Aerosol Inhaler Inhale 2 puffs into the lungs 2 times daily asneeded. 1 ??? metoprolol succinate (TOPROL-XL) 25 mg Tablet [...] mouth daily. ??? fluticasone (FLONASE) 50 mcg/actuation [place], Suspension 2 sprays by Each Nare route [...] ??? Essential hypertension ??? Coronary atherosclerosis of [place] coronary artery 2005: 2 stents to mid LAD and stent to osteal D2 (bifurcation lesion) at [facility] 01/2018- ST II, HR 126, BP 203/72, CP, 1 mm inf and lat ST depressions, normal perfusion and wall notion Norvasc led to diarrhea, Imdur to dizziness/hypotension ??? Asthma ??? Hyperlipidemia ??? Posterior tibial tendon dysfunction ??? Ocular rosacea Objective: Physical Exam BP 121/56 (BP Location (NBP): Left arm, Patient Position: Standing) Pulse 72 Comment: per ekg Ht157.5 cm (5' 2) Wt 67.6 kg (149 lb) LMP (LMP Unknown) BMI 27.25 kg/m?? General : pleasant female in NAD Cor: rrr, s1/s2 of nl character and amplitude, no mrg. jvp not elevated. Carotids without bruit Pulm: ctab Ab: soft, nt, nd Ext: no cce. Dp/pt ++ Neuro: without focal deficit EKG: NSR. No e/o ischemia/infarct Assessment and Plan: Coronary atherosclerosis of [place] coronary artery We discussed at length that in the setting of her continued CCS III angina, and her being on maximally tolerated anti-anginal therapy, proceeding to cardiac cath would be reasonable. However, if she does not want to proceed with an invasive strategy, as long as the angina is stable, it is reasonable to continue expectantly. - Anti-Thrombosis: asa 81 - Statin: crestor 20 - Anti-anginals: toprol 25, GTN PRN - patient will continue to ponder cardiac cath; I cited that it would be very reasonable at this time. - TTE to evaluate for other causes of exertional chest pain (although I did not appreciate a murmur - Decrease losartan in setting of sx hypotension. Will keep BP log RTC 3 months Patrice Burkett MD documented in this encounter Miscellaneous Notes Assessment & Plan Note - Patrice Burkett MD - 01/04/2019 3:31 PM EDTAssociated Problem(s): ASCVD (arteriosclerotic cardiovascular disease) We discussed at length that in the setting of her continued CCS III angina, and her being on maximally tolerated anti-anginal therapy, proceeding to cardiac cath would be reasonable. However, if she does not want to proceed with an invasive strategy, as long as the angina is stable, it is reasonable to continue expectantly. - Anti-Thrombosis: asa 81 - Statin: crestor 20 - Anti-anginals: toprol 25, GTN PRN - patient will continue to ponder cardiac cath; I cited that it would be very reasonable at this time. documented in this encounter Plan of Treatment Upcoming Encounters Date Type Specialty Care Team Description 09/02/2022 Office Visit Cardiology Patrice Burkett MD [facility] [address] [place], [place] [address] (Wo rk) 11/25/2022 Office Visit Dermatology Kole Mccain MD [address] [place] [address] DERMATOLOGY [place], [place] [address] (Wo rk) documented as of this encounter Procedures Procedure Name Priority Date/Time Associated Diagnosis Comme nts EKG 12-LEAD Routine 01/04/2019 2:48 PM Results f or this EDT procedure are i n the results section . ECG SCAN 01/04/2019 12:00 AM Results for this EDT procedure are i n the results section . documented in this encounter Results EKG 12 Lead (01/04/2019 2:48 PM EDT) Component Value Ref Range Test Analysis Performed Pathologis t Method Time At Signature Ventricular rate 72 BPM MUSE SYSTEM Atrial Rate 72 BPM MUSE SYSTEM P-R Interval 154 ms MUSE SYSTEM QRS Duration 92 ms MUSE SYSTEM Q-T Interval 374 ms MUSE SYSTEM QTC Calculated 409 ms MUSE SYSTEM (Bezet) Calculated P [place] 58 degrees MUSE SYSTEM Calculated R [place] 41 degrees MUSE SYSTEM Calculated T [place] 68 degrees MUSE SYSTEM INTERPRETATION Normal sinus rhythm MUSE SYSTEM Normal ECG When compared with ECG of 07-DEC-2018 16:25, No significant change was found Confirmed by MD Burkett Daniel ([id number]) on 01/05/2019 10:17:2 1 AM Specimen Anatomical Collection Method Collection Time Receive d Time (Source) Location / / Volume Laterality 01/04/2019 2:48 PM 9 EDT 10:17 AM EDT Unknown ECG ORDERABLES Performing Organization Address City/State/ZIP Code Phon e Number MUSE SYSTEM SCAN DOC: ECG (01/04/2019 12:00 AM EDT) Narrative 01/04/2019 12:00 AM EDT This result has an attachment that is no t available. Ordered by an unspecified provider. Scanning Provider MEDIA MGR SCAN EXT ORDR/RSLT documented in this encounter Visit Diagnoses Diagnosis Atherosclerosis of [place] coronary arter y of [place] heart with stable angina pectoris documented in this encounter Care Teams Bisque Kiln Drawer Relationship Specialty Start Date End Date Quin Rojas MD PCP - General 04/03/[address] [place] [address] documented as of this encounter
--- OUTSIDE RECORDS SUMMARY | 2022-03-08 01:59 | XMS_ITS | Encounter Summary ---
:1945 Author Organization [facility] [place] [address] Care Team Providers Name Role Phone Quin Rojas MD Primary Care Provider Encounter Details Date Type Department Care Team Description 10/28/[address] [facility] Anneliese Barclay RN [address] [place] [phone] Social History Tobacco Use Types Packs/Day Years Used Date Never Smoker Smokeless Tobacco: Never Used Alcohol Use Standard Drinks/Week Comments No 0 (1 standard drink = 0.6 oz pure alcoho l) [facility] Alcohol Habits Answer Date Recorded How often [...] Notes Telephone Encounter - Arlene Bills - 11/02/2018 11:35 AM EDT Appt scheduled 11/10/2018 1:40 pm Pt informed Telephone Encounter - Moose Barclay Jr., MD - 11/02/2018 11:33 AM EDT Needs follow up 1-2 weeks Telephone Encounter - Niki Kimball RN - 11/02/2018 10:52 AM EDT Albina did go to [facility] emergency after direction from Heidy Luis. She was evaluated for palpitations, diarrhea, and weakness. EKG, labs, and Chest Xray were done. She says she was treated with intravenous fluids to rehydrate her. She says that she was told the tests were okay and that the CXR did not i ndicate pneumonia. She was relased after 4 hours. She was given a container to collect stool sample,which she did and returned on Friday. She feels she is getting better. The palpitations ended upon arrival at the ER. She has had only fleeting sensation of palpitations since. She does not have a follow up appointment with Dr. Barclay yet. Telephone Encounter - Moose Barclay Jr., MD - 11/02/2018 8:46 AM EDT Find out if she went to the ER or what happened Telephone Encounter - Liv Luis RN - 10/29/2018 11:44 AM EDT I called her back. She is having an increase in her palpitations, over the top I (do not see palpitations on her problem list) She has had diarrhea for over a week and is really not having chest pain. She is wondering if it could be anxiety. She has been drinking water to keep herself hydrated sincethe diarrhea. I advised her to call her PCP or go to the ER to be evaluated. I will inform Dr. Barclay of her complaints. Telephone Encounter - Isa Morales - 10/29/2018 8:42 AM EDT Patient called this morning because she is still not feeling well. She said she is having loose bowels and cramps. Also, a knot in her chest and fluttering. Her blood pressure was 143/64 this morning. Please call her back at [phone] Telephone Encounter - Anneliese Barclay RN - 10/28/2018 1:13 PM EDT Spoke with pt again at great length. Gave her Dr. Barclay's instructions. She hopes this will help her feel better. She has no chest pain or tightness. I told her to call if she develops symptoms again.We will call her in 2 weeks if we haven't seen from her. Telephone Encounter - Moose Barclay Jr., MD - 10/28/2018 9:11 AM EDT BP low- cut amlodipine to 2.5 mg a day (1/2 pill) Phone check in 2 weeks- if no better will have to consider cath Telephone Encounter - Anneliese Barclay RN - 10/28/2018 8:55 AM EDT Spoke with pt at great length. She stated that she hasn't felt well at all. Her BP has been low 91/51, 99/47, and today 106/53. She also has more chest flutters but no chest pain. She is SOB but thinksit is due to her asthma. She has been stressed. Her has an ID last week and had 2 stents [place] at [facility]. She also has diarrhea and thinks she may have a bug. Telephone Encounter - Anneliese Barclay RN - 10/28/2018 8:01 AM EDT Call to see if chest pain less with amlodipine. documented in this encounter Plan of Treatment Upcoming Encounters Date Type Specialty Care Team Description 09/02/2022 Office Visit Cardiology Patrice Burkett MD [facility] [address] [place], [place] [address] (Wo rk) 11/25/2022 Office Visit Dermatology Kole Mccain MD [address] [facility] DERMATOLOGY [place], [place] [address] (Wo rk) documented as of this encounter Visit Diagnoses Not on filedocumented in this encounter Care Teams Hemmer Automatic Relationship Specialty Start Date End Date Quin Rojas MD PCP - General 04/03/[address] [place] [address] documented as of this encounter
--- OUTSIDE RECORDS SUMMARY | 2022-03-08 01:59 | XMS_ITS | Encounter Summary ---
:1945 Author Organization [facility] [place] [address] Care Team Providers Name Role Phone Quin Rojas MD Primary Care Provider Encounter Details Date Type Department Care Team Description 02/24/2017 Ancillary Procedure Radiology Library at Quin Biggs MD [facility] [id number] [place] [address] (Wo rk) [phone] Social History Tobacco Use Types Packs/Day Years [...] [facility] Dr [place], [place] [address] (Wo rk) 11/25/2022 Office Visit Dermatology Kole Mccain MD [address] [facility] [address] DERMATOLOGY [place], [place] [address] (Wo rk) documented as of this encounter Procedures Procedure Name Priority Date/Time Associated Diagnosis Comme nts FILM LIBRARY Routine 02/24/2017 12:00 AM Results for this STORAGE ONLY MAMMO EDT procedure are in the results section. documented in this encounter Results Film Library- Storage Only Mammo (02/24/2017 12:00 AM EDT) Specimen (Source) Anatomical Location Collection Method / Collectio n Time Received Time / Laterality Volume Narrative [facility] - 02/29/2020 10:48 AM EDT This exam is auto-finalizing. It's purpo se is for storage only. Quin Rojas MD IMG FILM LIBRARY ORDERABLES Performing Organization Address City/State/ZIP Code Phon e Number [place], [place] documented in this encounter Visit Diagnoses Not on filedocumented in this encounter Care Teams Rock Contractor Relationship Specialty Start Date End Date Quin Rojas MD PCP - General 04/03/[address] [place] [address] documented as of this encounter
--- OUTSIDE RECORDS SUMMARY | 2022-03-08 01:59 | XMS_ITS | Encounter Summary ---
:1945 Author Organization [facility] [place] [address] Care Team Providers Name Role Phone Quin Rojas MD Primary Care Provider Reason for Visit Reason Comments Follow-up 7 month f/u chest pain. Has increased her metoprolol and losartan since last visit. Is tired Encounter Details Date Type Department Care Team Description 08/11/2018 Office Visit Cardiology at [place] Barclayo sis [place] coronary artery of [place] heart with stable angina pectoris; Barak Del Valle MD Essential hypertension [address] [facility] [place] [address] [phone] Social History Tobacco Use Types Packs/Day Years Used Date Never Smoker Smokeless Tobacco: Never Used Alcohol Use Standard Drinks/Week Comments No 0 (1 standard drink = 0.6 oz pure alcoho l) [facility] Alcohol Habits Answer Date Recorded How often [...] Sign Reading Time Taken Comments Blood Pressure 132/60 08/11/2018 8:45 AM EDT Pulse 72 08/11/2018 8:45 AM EDT Temperature - - Respiratory Rate - - Oxygen Saturation - - Inhaled Oxygen Concentration - - Weight 68.5 kg (151 lb) 08/11/2018 8:45 AM EDT Height 154.9 cm (5' 1) 08/11/2018 8:45 AM EDT Body Mass Index 28.53 08/11/2018 8:45 AM EDT documented in this encounter Progress Notes Moose Barclay Jr., MD - 08/11/2018 8:40 AM EDT Subjective: Patient ID: Albina Thompson is a 73 y.o. female. Chief Complaint Patient presents with ??? Follow-up 7 month f/u chest pain. Has increased her metoprolol and losartan since last visit. Is tired HPI She has chest tightness and arm pain when carrying moderately heavy things but no discomfort with walking or other light activity. She has to limit some chores. She denies palpitations or dizzinessand has not had edema, PND or orthopnea. Her energy level is stable. She has not tried NTG for her discomfort as it goes away quickly with rest. Review of Systems she is slightly more tired this winter and has more trouble with cold hands, denies other issues Allergies Allergen Reactions ??? [...] tablet 3 ??? fluticasone (FLONASE) 50 mcg/actuation [place], Suspension 2 sprays by Each Nare route [...] ??? Essential hypertension ??? Coronary atherosclerosis of [place] coronary artery 2005: 2 stents to mid LAD and stent to osteal D2 (bifurcation lesion) at [facility] 01/2018- ST II, HR 126, BP 203/72, CP, 1 mm inf and lat ST depressions, normal perfusion and wall notion ??? Asthma ??? Hyperlipidemia ??? Posterior tibial tendon dysfunction ??? Ocular rosacea Objective: Physical Exam BP 132/60 (BP Location (NBP): Left arm, Patient Position: Sitting) Pulse 72 Ht 154.9 cm (5' 1) Wt 68.5 kg (151 lb) BMI 28.53 kg/m?? NAD No JVD/HJR Chest clear Cor RR, no murmur Abd benign Ext no edema Assessment and Plan: Continued symptoms with some activities- imaging showed no defects suggesting either non cardiac or due to a small side branch (too small to image). I asked her to try taking a NTG before activity and see if that makes any difference- if she has dramatically better exercise tolerance then medication adjustment or further testing (possible cath) would be indicated BP controlled Follow up depends on response to NTG documented in this encounter Plan of Treatment Upcoming Encounters Date Type Specialty Care Team Description 09/02/2022 Office Visit Cardiology Patrice Burkett MD [facility] [address] [place], [place] [address] (Wo rk) 11/25/2022 Office Visit Dermatology Kole Mccain MD [address] [facility] DERMATOLOGY [place], [place] [address] (Wo rk) documented as of this encounter Visit Diagnoses Diagnosis Atherosclerosis of [place] coronary arter y of [place] heart with stable angina pectoris Essential hypertension Unspecified essential hypertension documented in this encounter Care Teams Payroll Accounting Clerk Relationship Specialty Start Date End Date Quin Rojas MD PCP - General 04/03/[address] [place] [address] documented as of this encounter
--- OUTSIDE RECORDS SUMMARY | 2022-03-08 01:59 | XMS_ITS | Encounter Summary ---
:1945 Author Organization [facility] [place] [address] Care Team Providers Name Role Phone Quin Rojas MD Primary Care Provider Encounter Details Date Type Department Care Team Description 11/19/2018 Telephone Cardiology at [facility] Moose Barclay Jr., MD [address] [facility] [address] [place] [address] [place] [address] [phone] (Wo rk) Social History Tobacco Use Types [...] Notes Telephone Encounter - Arlene Bills - 11/30/2018 4:50 PM EDT Pt informed of appt and confirmed Telephone Encounter - Arlene Bills - 11/30/2018 2:01 PM EDT appt scheduled 12/07/2018 3:40 Left message pt to retn call to confirm Telephone Encounter - Moose Barclay Jr., MD - 11/19/2018 12:39 PM EDT Ok, fit her in the week of the Telephone Encounter - Liv Luis RN - 11/19/2018 12:07 PM EDT Called her back and the heaviness is no better and she has actually had an increase in her palpitations. She has restarted all 3 of her meds, losartan, metoprolol and amlodipine. Was not instructed to restart losartan. She thought someone from our office told her to restart all 3. She is taking metoprolol not atenolol. Telephone Encounter - Isa Morales - 11/19/2018 10:27 AM EDT Patient called because she is not sure if she is suppose to have another appointment with Dr Barclay before he leaves. Also, she would like to clarify what medications she is taking. Please call her back at [phone]. documented in this encounter Plan of Treatment Upcoming Encounters Date Type Specialty Care Team Description 09/02/2022 Office Visit Cardiology Patrice Burkett MD [facility] [address] [place] [address] ([place]) 11/25/2022 Office Visit Dermatology Kole Mccain MD [address] [facility] DERMATOLOGY [place], [place] [address] (Wo rk) documented as of this encounter Visit Diagnoses Not on filedocumented in this encounter Care Teams District Court Reporter Relationship Specialty Start Date End Date Quin Rojas MD PCP - General 04/03/[address] [place] [address] documented as of this encounter
--- OUTSIDE RECORDS SUMMARY | 2022-03-08 01:59 | XMS_ITS | Encounter Summary ---
:1945 Author Organization [facility] [place] [address] Care Team Providers Name Role Phone Quin Rojas MD Primary Care Provider Encounter Details Date Type Department Care Team Description 12/05/2017 Abstract Cardiology at [facility] Chito Brooks RN 580 [place] [address] Social History Tobacco Use Types Packs/Day Years Used Date Never Smoker Alcohol Use Standard Drinks/Week Comments No 0 (1 standard drink = 0.6 oz pure alcoho l) [facility] Alcohol Habits Answer Date Recorded How often [...] 09/02/2022 Office Visit Cardiology Patrice Burkett MD [facility] [address] [place], [place] [address] (Wo rk) 11/25/2022 Office Visit Dermatology Kole Mccain MD [address] [facility] DERMATOLOGY [place], [place] [address] (Wo rk) documented as of this encounter Visit Diagnoses Not on filedocumented in this encounter Care Teams Manager Of Manufacturing Relationship Specialty Start Date End Date Quin Rojas MD PCP - General 04/03/[address] [place] [address] documented as of this encounter
--- OUTSIDE RECORDS SUMMARY | 2022-03-08 01:59 | XMS_ITS | Encounter Summary ---
:1945 Author Organization [facility] [place] [address] Care Team Providers Name Role Phone Quin Rojas MD Primary Care Provider Encounter Details Date Type Department Care Team Description 12/02/2014 Orders Only Orthopaedics at [facility] Juliocesar Bone MD [facility] [place] [address] ORTHOPAEDIC SURGERY [phone] [place], [place] [address] (Wo rk) Social History Tobacco [...] Office Visit Cardiology Patrice Burkett MD [facility] [address] [place] [address] (Wo rk) 11/25/2022 Office Visit Dermatology Kole Mccain MD [address] [place] [address] DERMATOLOGY [place], [place] [address] (Wo rk) documented as of this encounter Procedures Procedure Name Priority Date/Time Associated Diagnosis Comme nts FILM LIBRARY Routine 12/02/2014 9:52 PM Results f or this STORAGE ONLY CT EDT procedure ar e in LOWER EXTREMITY the results section. documented in this encounter Results Film Library- Storage only CT Lower Extremity (12/02/2014 9:52 PM EDT) Anatomical Region Laterality Modality Hip, Leg, Knee, Thigh, Ankle, Foot Other Specimen (Source) Anatomical Collection Method Collection Time Re ceived Time Location / / Volume Laterality 12/02/2014 9:52 PM EDT Narrative 12/22/2014 9:52 PM EDT This is a Non-reportable exam Procedure Note GAGE, UNSIGNED REPORT - 12/22/2014Formatt ing of this note might be different from the original. This is a Non-reportable exam Juliocesar Bone MD IMG FILM LIBRARY ORDERABLES documented in this encounter Visit Diagnoses Not on filedocumented in this encounter Care Teams Industrial Safety Engineer Relationship Specialty Start Date End Date Quin Rojas MD PCP - General 04/03/[address] [place] [address] documented as of this encounter
--- OUTSIDE RECORDS SUMMARY | 2022-03-08 01:59 | XMS_ITS | Encounter Summary ---
:1945 Author Organization [facility] [place] [address] Care Team Providers Name Role Phone Quin Rojas MD Primary Care Provider Encounter Details Date Type Department Care Team Description 10/12/2018 Telephone Cardiology at [facility] Moose Barclay Jr., MD 580 [facility] A 580 [facility] [place] [address] [place] [address] [phone] (Wo rk) Social History Tobacco Use Types [...] Telephone Encounter - Liv Luis RN - 10/12/2018 11:59 AM EDT See previous note Telephone Encounter - Isa Morales - 10/12/2018 11:50 AM EDT Patient is returning call from the nurse. See previous note. Please call her back at [phone]. documented in this encounter Plan of Treatment Upcoming Encounters Date Type Specialty Care Team Description 09/02/2022 Office Visit Cardiology Patrice Burkett MD [facility] Medical [facility] [address] [place], [place] [address] (Wo rk) 11/25/2022 Office Visit Dermatology Kole Mccain MD 580 [facility] DERMATOLOGY [place], [place] [address] (Wo rk) documented as of this encounter Visit Diagnoses Not on filedocumented in this encounter Care Teams Contracting Manager Relationship Specialty Start Date End Date Quin Rojas MD PCP - General 04/03/[address] [place] [address] documented as of this encounter
--- OUTSIDE RECORDS SUMMARY | 2022-03-08 01:59 | XMS_ITS | Encounter Summary ---
:1945 Author Organization [facility] [place] [address] Care Team Providers Name Role Phone Quin Rojas MD Primary Care Provider Encounter Details Date Type Department Care Team Description 02/27/2018 Telephone Cardiology at [facility] Moose Barclay Jr., MD 580 [facility] A 580 [facility] [place] [address] [place] [address] [phone] (Wo rk) Social History Tobacco Use Types [...] Notes Telephone Encounter - Arlene Bills - 02/27/2018 9:58 AM EDT Patient called, Dr Barclay increased her Metoprolol to 25 mg daily. She needs a new script Please. Pharmacy [facility] documented in this encounter Plan of Treatment Upcoming Encounters Date Type Specialty Care Team Description 09/02/2022 Office Visit Cardiology Patrice Burkett MD [facility] [place] [address] (Wo rk) 11/25/2022 Office Visit Dermatology Kole Mccain MD [address] [place] [address] DERMATOLOGY [place], [place] [address] (Wo rk) documented as of this encounter Visit Diagnoses Diagnosis Essential hypertension Unspecified essential hypertension Palpitations documented in this encounter Care Teams Volleyball Coach Relationship Specialty Start Date End Date Quin Rojas MD PCP - General 04/03/[address] [place] [address] documented as of this encounter
--- OUTSIDE RECORDS SUMMARY | 2022-03-08 01:59 | XMS_ITS | Encounter Summary ---
:1945 Author Organization [facility] [place] [address] Care Team Providers Name Role Phone Quin Rojas MD Primary Care Provider Encounter Details Date Type Department Care Team Description 12/30/2017 External Results Cardiology at [facility] Liv Luis RN 580 [place] [address] Social History Tobacco Use Types Packs/Day Years Used Date Never Smoker Alcohol Use Standard Drinks/Week Comments No 0 (1 standard drink = 0.6 oz pure alcoho l) [facility] Alcohol Habits Answer Date Recorded How often [...] Burkett MD [facility] Dr [place] [address] (Wo rk) 11/25/2022 Office Visit Dermatology Kole Mccain MD 580 [place], [place] [address] (Wo rk) documented as of this encounter Procedures Procedure Name Priority Date/Time Associated Diagnosis Comme nts EXTERNAL LIPID LAB Routine 03/10/2017 Results f or this RESULTS PANEL procedure are in the results section . documented in this encounter Results Lipid External Results (03/10/2017) P athologist Signature Chol, Total 180 HDL 64 LDL Cholesterol 91 Triglycerides 114 Historical Provider MD POINT OF CARE TEST ORDERABLE S documented in this encounter Visit Diagnoses Not on filedocumented in this encounter Care Teams Camp Recreation Specialist Relationship Specialty Start Date End Date Quin Rojas MD PCP - General 04/03/[address] [place] [address] documented as of this encounter
--- OUTSIDE RECORDS SUMMARY | 2022-03-08 01:59 | XMS_ITS | Encounter Summary ---
:1945 Author Organization [facility] [place] [address] Care Team Providers Name Role Phone Quin Rojas MD Primary Care Provider Encounter Details Date Type Department Care Team Description 08/12/2018 External Results Cardiology at [facility] Anneliese Barclay RN 580 [place] [address] Social History Tobacco Use Types Packs/Day Years Used Date Never Smoker Smokeless Tobacco: Never Used Alcohol Use Standard Drinks/Week Comments No 0 (1 standard drink = 0.6 oz pure alcoho l) [facility] Alcohol Habits Answer Date Recorded How often [...] 09/02/2022 Office Visit Cardiology Patrice Burkett MD [facility] [address] [place] [place], [place] [address] (Wo rk) 11/25/2022 Office Visit Dermatology Kole Mccain MD 580 [facility] DERMATOLOGY [place], [place] [address] (Wo rk) documented as of this encounter Procedures Procedure Name Priority Date/Time Associated Diagnosis Comme nts EXTERNAL LIPID LAB Routine 02/26/2018 Results f or this RESULTS PANEL procedure are in the results section . documented in this encounter Results Lipid External Results (02/26/2018) P athologist Signature Chol, Total 183 HDL 65 LDL Cholesterol 104 Triglycerides 107 Historical Provider POINT OF CARE TEST ORDERABLE S documented in this encounter Visit Diagnoses Not on filedocumented in this encounter Care Teams Optical Engineering Technician Relationship Specialty Start Date End Date Quin Rojas MD PCP - General 04/03/[address] [place] [address] documented as of this encounter
--- OUTSIDE RECORDS SUMMARY | 2022-03-08 01:59 | XMS_ITS | Encounter Summary ---
:1945 Author Organization [facility] [place] [address] Care Team Providers Name Role Phone Quin Rojas MD Primary Care Provider Encounter Details Date Type Department Care Team Description 09/11/2018 Telephone Cardiology at [facility] Chito Brooks RN 580 [place] [address] Social History Tobacco Use Types Packs/Day Years Used Date Never Smoker Smokeless Tobacco: Never Used Alcohol Use Standard Drinks/Week Comments No 0 (1 standard drink = 0.6 oz pure alcoho l) [facility] Alcohol Habits Answer Date Recorded How [...] Notes Telephone Encounter - Arlene Bills - 10/12/2018 4:14 PM EDT appt scheduled 10/14/2018 8:20 am Pt informed of appt Telephone Encounter - Moose Barclay Jr., MD - 10/12/2018 2:26 PM EDT Ok needs ov to discuss options (possible cath) Telephone Encounter - Liv Luis RN - 10/12/2018 12:01 PM EDT Took NTG before activity and it didn't make a difference. Feels weak, shaky, dizzy and sick to stomach and has to sit down. Has a lump in her throat. Is using inhaler too. She has been doing yard work.Feels she is drinking enough water. B/p was 146/77. Heart rate was 83. Goes away after she sits and rests. B/p has been as low as 111/54. Telephone Encounter - Chito Brooks RN - 10/09/2018 10:51 AM EDT Called patient again, she said she has been to busy to do this yet. She said she will do it today and call us on Friday. Telephone Encounter - Chito Brooks RN - 09/25/2018 10:21 AM EDT Called and left message to call back. Telephone Encounter - Chito Brooks RN - 09/18/2018 3:05 PM EDT Called patient, she reports that she has not yet had a chance to take the nitro prior to activity. She did say she took 1 nitro for shoulder pain and numbness and SOB after activity. She did say that it was not completely relieved with 1 nitro, but did not take another. reviewed nitro protocol with patient. She said she will defiently try to take the nitro before activity this week. Let her now I will call her next Friday morning so she let me know if it made a difference. Telephone Encounter - Chito Brooks RN - 09/11/2018 9:55 AM EDT Called patient for phone check after her office visit with Dr. Barclay on 08/11/18. She was instructedto take nitro prior to activity such as carrying groceries. She reports that he has not had the opportunity to try it because she has been dealing with her husbands medical issues. She said she will make sure to do it this week and will call us next Friday. documented in this encounter Plan of Treatment Upcoming Encounters Date Type Specialty Care Team Description 09/02/2022 Office Visit Cardiology Patrice Burkett MD [facility] [address] [place], [place] [address] (Wo rk) 11/25/2022 Office Visit Dermatology Kole Mccain MD 580 [facility] DERMATOLOGY [place], [place] [address] (Wo rk) documented as of this encounter Visit Diagnoses Not on filedocumented in this encounter Care Teams Solution Mixer Relationship Specialty Start Date End Date Quin Rojas MD PCP - General 04/03/[address] [place] [address] documented as of this encounter
--- OUTSIDE RECORDS SUMMARY | 2022-03-08 01:59 | XMS_ITS | Encounter Summary ---
:1945 Author Organization [facility] [address] Care Team Providers Name Role Phone Quin Rojas MD Primary Care Provider Reason for Visit Reason Comments Right Foot Pain Encounter Details Date Type Department Care Team Description 01/31/2015 Office Visit Orthopaedics at [facility] Juliocesar Bone MD Posterior tibial [facility] ONE [facility] [place] [address] ORTHOPAEDIC [phone] SURGERY [place] [id number] Social History Tobacco Use Types Packs/Day Years [...] Sign Reading Time Taken Comments Blood Pressure 149/65 01/31/2015 1:41 PM EDT Pulse 61 01/31/2015 1:41 PM EDT Temperature - - Respiratory Rate - - Oxygen Saturation - - Inhaled Oxygen Concentration - - Weight 74.8 kg (165 lb) 01/31/2015 1:41 PM EDT Height 157.5 cm (5' 2) 01/31/2015 1:41 PM EDT Body Mass Index 30.18 01/31/2015 1:41 PM EDT documented in this encounter Progress Notes Juliocesar Bone MD - 01/31/2015 2:16 PM EDT Chief complaint: Right foot pain and instability History of present illness: Albina Thompson is a 69 y.o. year-old female seen in consultation from Dr. Kalia Gonzáles for the above. She has had pain and increasing deformity in her right foot for 20some years. She recounts no specific injury. Her biggest complaint now is instability of the foot. She has difficulty walking on uneven ground or inclines. She has tried different braces in the past. She has never had injections. She has never had surgery on this foot. She was prescribed an Sarah brace by Dr. Gonzáles. She has had this fitted has not yet picked it up. Past medical history: Patient Active Problem List Diagnosis Date Noted ??? Posterior tibial tendon dysfunction 01/31/2015 ??? Inflamed seborrheic keratosis 09/11/2012 ??? Seborrheic keratosis 05/01/2012 ??? Rosacea 01/23/2012 She has a history of cardiac stents ??3 She describes an episode of aspiration pneumonia during ORIF of a right distal radius fracture She has a questionable diagnosis of liver dysfunction. At some point liver biopsy was suggested but has not been performed. She has a history of asthma History of blood clots or bleeding disorders: Denies Denies history of kidney diease or diabetes Medications: albuterol (PROVENTIL) 2.5 mg /3 mL (0.083 %) Solution for Nebulization; SYMBICORT 160-4.5 mcg/actuation HFA Aerosol Inhaler; VITAMIN B-12 1,000 mcg Tablet; RESTASIS 0.05 % Dropperette; fluticasone (FLONASE) 50 mcg/actuation [place], Suspension; ADVAIR DISKUS 250-50 mcg/dose Disk with Device; montelukast (SINGULAIR) 10 mg Tablet; ranitidine (ZANTAC) 150 mg Tablet; aspirin 325 mg Tablet; losartan (COZAAR) 50 mg tablet levothyroxine (SYNTHROID) 75 mcg tablet; CALCIUM CARBONATE/VITAMIN D3 (CALCIUM 600 WITH VITAMIN D3 ORAL); nitroGLYcerin (NITROSTAT) 0.4 mg SL tablet; albuterol (PROVENTIL HFA;VENTOLIN HFA) 90 mcg/Actuation inhaler; atenolol (TENORMIN) 25 mg tablet; CALCIUM CARBONATE (TUMS ORAL); rosuvastatin (CRESTOR)5 mg tablet Allergies: Allergies Allergen Reactions ??? Iodine And Iodide Containing Products ??? Percocet [Oxycodone-Acetaminophen] Other (See Comments) All pain medications ??? Pneumax [Phenylephrine-Guaifenesin] Rash Swelling ??? Persantine [Dipyridamole] ??? Povidone-Iodine ??? Shellfish Derived CIS - crushing chest pain ??? Simvastatin CIS - myalgia ??? Thallium-201 Social history: History Substance Use Topics ??? Smoking status: Never Smoker ??? Smokeless tobacco: Not on file ??? Alcohol Use: No Comment: occ Occupation: She does not work outside the home. She performs chores around the house and visit in place with her 10 grandchildren Review of systems: No chest pain or shortness of breath at baseline No fevers, night sweats or chills Physical Exam: No Apparent distress Examination of the right lower extremity shows significant pes planus. She has hallux valgus with a prominent medial eminence. She is unable to stand on her right leg without assistance. Double leg heel raise shows no reconstitution of her longitudinal arch. She has pain with palpation or range of motion at the ankle joint. Ankle range of motion from 5?? above neutral to 25 or 30?? of plantarflexion.Subtalar range of motion shows approximately 20-25?? which is also painful. She has prominence of her talar head in her arch. Silverskiold testing is negative. She has 5 out of 5 tib ant, EHL, gastrocs. She has intact sensation in the deep peroneal, superficial peroneal, sural, saphenous, tibial nervedistribution. Palpable dorsalis pedis pulse. She has pain and fullness in the area of the sinus tarsi. Imaging: Personal review of the patient's imaging reveals: X-ray shows significant pes planus and hallux valgus. CT scan confirms arthritic changes at the tibiotalar joint, the subtalar joint, into a lesser degree in the talonavicular and calcaneal cuboid joint. There is significant subchondral sclerosis and subchondral cysts at the subtalar joint. Assessment: 69 y.o. 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 I think that an Sarah brace would be very appropriate given her main complaint is instability. If this improves her stability but continues to give herpain, one could consider targeted injections to determine which of her multiple arthritic joints is b othering her the most. In terms of surgical correction, I doubt that anything less then tibiotalar and subtalar fusion would help stabilize her foot. Given the arthritic changes she has the rest of themidfoot she may still continue to have discomfort. She may need plantar flexion fusion or osteotomy at her TMT joints or her metatarsal given her long-standing pes planus. We discussed the risks of surgery. At this point she is not inclined to pursue surgery. She will continue with her Sarah brace after she receives it. I advised her to wear stiff soled hiking shoes. Follow up: We're happy to see her again at any point in the future. This plan was discussed with the patient and they are in agreement. All of the patient's questions were answered. The above dictation was made with voice recogonition software documented in this encounter Plan of Treatment Upcoming Encounters Date Type Specialty Care Team Description 09/02/2022 Office Visit Cardiology Patrice Burkett MD [facility] [address] [place] [address] (Wo rk) 11/25/2022 Office Visit Dermatology Kole Mccain MD 580 [facility] DERMATOLOGY [place], [place] [address] (Wo rk) documented as of this encounter Visit Diagnoses Diagnosis Posterior tibial tendon dysfunction Other disorders of synovium, tendon, and bursa documented in this encounter Care Teams Front End Software Developer Relationship Specialty Start Date End Date Quin Rojas MD PCP - General 04/03/[address] [place] [address] documented as of this encounter
--- OUTSIDE RECORDS SUMMARY | 2022-03-08 01:59 | XMS_ITS | Encounter Summary ---
:1945 [place] [address] Care Team Providers Name Role Phone Quin Rojas MD Primary Care Provider Reason for Visit Reason Onset Date Comments Medication Refill 01/11/2019 Encounter Details Date Type Department Care Team Description 01/11/[address] [facility] [place] Patrice Burkett MD Medication Refill [address] [facility] [address] [place] [address] [phone] (Wo rk) Social History Tobacco Use Types [...] Office Visit Cardiology Patrice Burkett MD [facility] [address] [place], [place] [address] (Wo rk) 11/25/2022 Office Visit Dermatology Kole Mccain MD [address] [facility] [address] DERMATOLOGY [place], [place] [address] (Wo rk) documented as of this encounter Visit Diagnoses Diagnosis Essential hypertension Unspecified essential hypertension documented in this encounter Care Teams Oracle Security Consultant Relationship Specialty Start Date End Date Quin Rojas MD PCP - General 04/03/[address] [place] [address] documented as of this encounter
--- OUTSIDE RECORDS SUMMARY | 2022-03-08 01:59 | XMS_ITS | Encounter Summary ---
:1945 Author Organization [facility] [place] [address] Care Team Providers Name Role Phone Quin Rojas MD Primary Care Provider Encounter Details Date Type Department Care Team Description 01/20/2018 Telephone Cardiology at [facility] Moose Barclay Jr., MD 580 [facility] A [address] [place] [address] [place] [address] [phone] (Wo rk) Social History Tobacco Use Types [...] Telephone Encounter - Liv Luis RN - 01/20/2018 12:56 PM EDT She was wondering about when to stop her atenolol. We went over not taking it on Fri and ambefore test Telephone Encounter - Arlene Bills - 01/20/2018 10:36 AM EDT Pt is asking about the atenolol, she takes 1/2 25 mg tab in the am. She is now having an ETT on Jan 22/2018 @ 7:15 am documented in this encounter Plan of Treatment Upcoming Encounters Date Type Specialty Care Team Description 09/02/2022 Office Visit Cardiology Patrice Burkett MD [facility] Medical [facility] er [address] [place], [place] [address] (Wo rk) 11/25/2022 Office Visit Dermatology Kole Mccain MD 580 [facility] DERMATOLOGY [place], [place] [address] (Wo rk) documented as of this encounter Visit Diagnoses Not on filedocumented in this encounter Care Teams Dehydration Unit Operator Relationship Specialty Start Date End Date Quin Rojas MD PCP - General 04/03/10 [facility] [address] [place] [address] documented as of this encounter
--- OUTSIDE RECORDS SUMMARY | 2022-03-08 01:59 | XMS_ITS | Encounter Summary ---
:1945 Author Organization [facility] [place] [address] Care Team Providers Name Role Phone Quin Rojas MD Primary Care Provider Encounter Details Date Type Department Care Team Description 01/22/2018 Telephone Cardiology at [facility] Moose Barclay Jr., MD 580 [facility] A 580 [facility] [address] [place] [address] [phone] (Wo rk) Social History Tobacco Use Types [...] Notes Telephone Encounter - Arlene Bills - 01/26/2018 10:26 AM EDT appt scheduled 07/29/18 10:40 am Pt informed Telephone Encounter - Moose Barclay Jr., MD - 01/22/2018 4:40 PM EDT MIBI- reproduced pain without ischemia Fair exercise tolerance May be muscular or due to small area of ischemia (too small to visualize)- either way, ok to exercise BP has been high- increase losartan to 100 mg QD- new script sent in Follow up 6 months Called and discussed with patient documented in this encounter Plan of Treatment Upcoming Encounters Date Type Specialty Care Team Description 09/02/2022 Office Visit Cardiology Patrice Burkett MD [facility] [address] [place], [place] [address] (Wo rk) 11/25/2022 Office Visit Dermatology Kole Mccain MD [address] [facility] DERMATOLOGY [place], [place] [address] (Wo rk) documented as of this encounter Visit Diagnoses Not on filedocumented in this encounter Care Teams Senior Technical Specialist Relationship Specialty Start Date End Date Quin Rojas MD PCP - General 04/03/[address] [place], [place] [address] documented as of this encounter
--- OUTSIDE RECORDS SUMMARY | 2022-03-08 01:59 | XMS_ITS | Encounter Summary ---
:1945 Author Organization [facility] [place] [address] Care Team Providers Name Role Phone Quin Rojas MD Primary Care Provider Reason for Visit Reason Comments Follow-up Skin Check Encounter Details Date Type Department Care Team Description 02/12/2018 Office Visit Dermatology at [facility], Ocular rosacea; Barak JIMENEZ Seborrheic keratosis [address] [facility] Eladio B DERMATOLOGY [place], [place] [id number] [phone] Social History Tobacco Use Types Packs/Day Years [...] encounter Progress Notes Kole Mccain MD - 02/12/2018 4:00 PM EDT Problem: 1. New skin lesion concern 2. History of rosacea Albina follows up and is developed some new lesions on her face that she would like me to check. Terry has very dry eyes which is in keeping with her rosacea and her ocular rosacea. Physical examination was a pleasant 72-year-old woman who has a seborrheic keratosis just below her right eyebrow and 2 on the right central cheek. She has patchy erythema on the malar cheeks and over the bridge of her nose consistent with rosacea and very dry conjunctiva and erythematous conjunctiva consistent with ocular rosacea. Ocular rosacea 1. Begin doxycycline 50 mg 1 p.o. daily dispense #90 with 3 refills Seborrheic keratoses, facial 1. Patient reassured about benign seborrheic keratoses 2. Could consider removal with with light C&D Cc: Quin Rojas MD documented in this encounter Plan of Treatment Upcoming Encounters Date Type Specialty Care Team Description 09/02/2022 Office Visit Cardiology Patrice Burkett MD [facility] [address] [place] [address] (Wo rk) 11/25/2022 Office Visit Dermatology Kole Mccain MD [address] [facility] DERMATOLOGY [place], [place] [address] (Wo rk) documented as of this encounter Visit Diagnoses Diagnosis Ocular rosacea Rosacea Seborrheic keratosis Other seborrheic keratosis documented in this encounter Care Teams Chisel Mortiser Operator Relationship Specialty Start Date End Date Quin Rojas MD PCP - General 04/03/[address] [place] [address] documented as of this encounter
--- OUTSIDE RECORDS SUMMARY | 2022-03-08 02:03 | XMS_ITS | Encounter Summary ---
:1945 Author Organization [facility] Address [address] [place] [address] Care Team Providers Name Role Phone Unknown, Provider Primary Care Provider Encounter Details Date Type Department Care Team Description 09/07/2014 Results Only [facility]- Josep Carlisle MD [phone] [place] [address] [place], [place] [id number] (Wo rk) Social History Tobacco Use Types Packs/Day Years Used Date Never Assessed Sex Assigned at Date Recorded Not on file documented as of this encounter Plan of Treatment Not on filedocumented as of this encounter Procedures Procedure Name Priority Date/Time Associated Diagnosis Comme nts SURGICAL PATHOLOGY Routine 09/07/2014 16:09 Resul ts for this EDT procedure are i n the results section. documented in this encounter Results SURGICAL PATHOLOGY (09/07/2014 16:09 EDT) Pathology SURGICAL PATHOLOGY REPORT [facility] MEDICAL Report: CENTER Reports generated via electronic interface contain geoff ginal data; LABORATORY however they are lacking the format of the original re port. SERVICES Caution should be taken when reading/interpreting unfo rmatted reports. Name: ? ALMA THOMPSON ? Accession #: ? [id number] ? : ? 1945 (Age: 69) ??F ?Collect Da te: ? 09/07/2014 ? Location: ? [facility] ? Receive Date: ? 09/09/19 15 ? Provider: JOSEP LOWRY MD Copy to: ? Addendum ? Date Ordered: ? 09/16/2014 ? Status: Si gned Out ? Date Complete: ? 09/19/2014 ? By: Cornelia Heredia ? Date Reported: ? 09/19/2014 ? Addendum Comment THIS SPECIMEN DOES NOT BELONG TO THIS PATIENT On September 15, 2014, we were info rmed by a entry level account representative of Dr. Lowry's office that these biopsy specimens were NOT taken from the above-n armani patient. ??The container labels, requisition and accomp anying patient demographic information initially submitted were incorrect. ??A requisition wi th the correct patient demographics was faxed to us . ??The case is re-accessioned to the correct patient as [id number]. ??The slides and blocks are relabelled. ??The charges to this patient are credited. /klb Document reviewed and electronically signed by: ? MIGUEL ACEVEDO MD ? Report date: 09/19/2014 By the signature above, the attending physician certif ies that he/she has personally conducted a gross and/or microscopic examin ation of the described specimens and rendered or confirmed the above diagnosi s. Final Report Final Pathologic Diagnosis: A. ??SKIN OF EAR, LEFT, SHAVE BIOPSY: - Actinic keratosis. B. 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 See comment. - Anatomic (Eleon) level: At least I. - Associated nevus: Not identified. - Tumor regression: ??Not identified. - Margins of shave biopsy: Positive for melanoma in si tu. - Melanoma in situ present at peripheral edge and bas e of shave biopsy specimen. Comment: Multiple sections of both bi opsies were reviewed. 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 The melanoma in situ is high ly cellular with large and loosely formed nests. ??In some areas, the nests are fragmented and transec estelle at the base of the biopsy specimen. ??These foci are s uspicious for dermal invasion; therefore, the Eleno level may be greater. (Dr. Acevedo)/mpl ? Microscopic Description: A. Sections consist of a thin shave biopsy of skin basil t transects the lower epidermis and papillary derm is. ??There is hyperkeratosis and parakeratosis. ??The epidermis varies in thickness. ??In areas, there is nu clear enlargement and dispolarity along the basal zone. ??The dermis h as reactive vessels and focal fibrin deposition. ??Deeper sections show similar feat ures. ?? B. Sections consist of a sha ve biopsy of skin that transects the lower epidermis and papillary dermis. ??At one edge of the biopsy, the re is mild epidermal hyperplasia associated with a highly homero lular melanocytic proliferation. ??The proliferation consists of irregular and loosely formed nests, in addition to individual cells. ??Individu al melanocytes are crowded along the dermal-epidermal junction and show extension into the upper levels of t he epidermis. ??The melanocytes are enlarged and have a moderate degree of nuclear pleomorphism. Most have a moderate amount of light eosinophilic cytoplasm with coarse melanin pigment. ??The dermis, where represented, has prominen t elastosis. ??Deeper sections show similar features. ??(Dr. Acevedo)/mpl Immunohistochemical staining was performed on this case to further characterize the lesion. ??Positive and negative controls stained a ppropriately. ANTIBODY(CLONE)(BLOCK):RESULT [place]-1 (Melan-A) ALK PHOS (A 103, [place]): ??Highlights melanocytic proliferation showing areas of confluent growth and developed pageto id migration. ?? NOTE: ??One or more of the reagents used in immunohistochemical testing in this case may not have been cleared or approved by the U.S. Food and Drug Administration (FDA). ??The FDA has determined that such clearance or approval is not necessary. ??These tests are used for clinical purposes. ??They should not be regarded as investigational or for research. ??These r eagents' performance characteristics have been determined by the [facility]. ??This laboratory is certified under the Clinical Laboratory Improvement Amendments of 1988 (CLIA-88) as qualified to per form high complexity clinical laboratory testing. ? Gross Description: A. ?Received in formalin labelled with proper p atient identification (initials H, J) and left ea r is a shave biopsy of pavon-white skin (0.4 x 0.3 x 0.1 cm). There is a central pavon crusted lesion that measures less than 0.1 cm in greatest dimension. ??Submitted intact in A1. B. ?Received in formalin labelled with proper p atient identification (initials H, J) and left ch chickaloon is a shave biopsy of pavon-white skin (0.5 x 0.2 x 0.1 cm). There is a centra l, friable pavon-nicholson crusted lesion that measures 0.3 x 0.1 x 0.1 cm. ??Submitted intact in B1. Harriet Carlos 09/09/2014 08:25 AM ? Clinical History: A. ??L ear lesion, helix; B. L cheek lesion, pigmented; clinical diagnosis code: 709.9, 238.2 ? Specimens Received: A: Skin, shave/punch biopsy B: Skin, shave/punch biopsy Document reviewed and electronically signed by: ? MIGUEL ACEVEDO MD ? Report ??Date: 09/12/2014 13:59 By the signature above, the attending physician certif ies that he/she has personally conducted a gross and/or microscopic examin ation of the described specimens and rendered or confirmed the above diagnosi s. End of Report Specimen Performing Organization Address City/State/ZIP Code Phon e Number [facility] [address] [place] [address] SERVICES documented in this encounter Visit Diagnoses Not on filedocumented in this encounter Care Teams Dynamics Ax Solution Architect Relationship Specialty Start Date End Date Unknown, Provider, PCP - General 11/01/08 documented as of this encounter
--- OUTSIDE RECORDS SUMMARY | 2022-03-08 02:03 | XMS_ITS | Encounter Summary ---
:1945 Author Organization [facility] Address [address] [place] [address] Care Team Providers Name Role Phone Unknown, Provider Primary Care Provider Encounter Details Date Type Department Care Team Description 12/26/2009 Results Only [facility] Ava Rojas MD Laboratory Services - [address] [place] [address] [address] [place] [phone] (Wo rk) Social History Tobacco Use Types Packs/Day Years Used Date Never Assessed Sex Assigned at Date Recorded Not on file documented as of this encounter Plan of Treatment Not on filedocumented as of this encounter Procedures Procedure Name Priority Date/Time Associated Comments Diagnosis HPV DETECTION, HIGH Routine 12/26/2009 9:58 Resul ts for this RISK TYPES EDT procedure are i n the results section. CYTOPATHOLOGY Routine 12/26/2009 0:00 Results for this EDT procedure are i n the results section. documented in this encounter Results HUMAN PAPILLOMA VIRUS DNA TEST (12/26/2009 9:58 EDT) Specimen Description Cervix, ThinPrep [facility] L AB vial Result Negative for HPV [facility] types 16, 18, 31, 33, 35, 39, 45, 51, 52, 56, 58, 59, and 68. Report Status Final [facility] 01/04/2010 Specimen Performing Organization Address City/State/ZIP Code Phon e Number [facility] [address] [place] [address] SERVICES [facility] [address] [place] [address] CYTOPATHOLOGY (12/26/2009 0:00 EDT) Pathology Report: CYTOPATHOLOGY REPORT ? [facility] ? LAB Reports generated via electr [employer] interface contain original data; ? however they are lacking the format of the original report. ? Caution should be taken when reading/interpreting unformatted reports. ? Name: ? HEMOND, ALMA R ? Accession #: ? [id number] ? : ? 1945 (Age: 64) ??F ?Collect Date: ? 12/26/2009 ? Location: ? [facility] ? Receive Date: ? 12/27/2009 ? Provider: ?EMILEE M DO BBERTIN MD ? Copy to: ? Specimen/Source: ? Pap Test, Endocervix, ThinPrep Imaging System with ? manual evaluation ? Last Menstrual Period: ? Menstrual/ Status: ? Post Menopausal ? Previous Gynecologic Patholo gy: ? HPV: + 06/22/09 ? Other: ? HPVDX - HPV testing requeste d regardless of diagnosis on current ThinPrep Pap ?? test. ? SPECIMEN ADEQUACY ? Satisfactory for Eval uation ? - transformation zone compon ent present ? GENERAL CATEGORIZATION ? Epithelial Cell Abnor mality ? INTERPRETATION ? Squamous Cell Abnorma lity - Atypical squamous cells, undetermined ? significance (ASC-US). ? EDUCATIONAL NOTES/RECOMMENDA TIONS ? FA recommends daneo wing the 2006 Consensus Guidelines for the Management of Women with Abnormal Cervi evon Cancer Screening Tests (JLGTD, ? 2007;11(4):201-222). ??Conse nsus guidelines are available online at ? www.ASCCP.org. ? Document reviewed and electr onically signed by: ? Lilian Smith MD ? Report Date: ??/23/ 2010 13:22 ? End of Report ? Specimen Performing Organization Address City/[facility]/ZIP Code Phon e Number [facility] [address] [place] [address] SERVICES [facility] [address] [place] [address] documented in this encounter Visit Diagnoses Not on filedocumented in this encounter Care Teams Corporate Real Estate Specialist Relationship Specialty Start Date End Date Unknown, Provider, PCP - General 11/01/08 documented as of this encounter
--- OUTSIDE RECORDS SUMMARY | 2022-03-08 02:03 | XMS_ITS | Encounter Summary ---
:1945 Author Organization [facility] Address [address] [place] [address] Care Team Providers Name Role Phone Unknown, Provider Primary Care Provider Encounter Details Date Type Department Care Team Description 10/31/2008 Orders Only [facility] Ava Rojas MD Laboratory Services - [address] [place] [address] [address] [place] [address] [phone] Social History Tobacco Use Types Packs/Day Years Used Date Never Assessed Sex Assigned at Date Recorded Not on file documented as of this encounter Plan of Treatment Not on filedocumented as of this encounter Procedures Procedure Name Priority Date/Time Associated Comments Diagnosis HPV DETECTION, HIGH Routine 10/31/2008 8:30 Resul ts for this RISK TYPES EDT procedure are i n the results section. CYTOPATHOLOGY Routine 10/31/2008 0:00 Results for this EDT procedure are i n the results section. documented in this encounter Results HUMAN PAPILLOMA VIRUS DNA TEST (10/31/2008 8:30 EDT) Specimen Description Cervix, ThinPrep [facility] vial LAB Result Positive for one or more of HPV types 16,18,31,33,35,39,45,51,52,56,58,59, or 68. These POWERS Luciano SOTOMAYOREN high/intermediate risk HPV t ypes are associated with dysplasia and some cervical cancers. LAB Report Status Final [facility] 11/16/2008 LAB Specimen Performing Organization Address City/State/ZIP Code Phon e Number [facility] [address] [place] [address] SERVICES [facility] [address] [place] [address] CYTOPATHOLOGY (10/31/2008 0:00 EDT) Pathology Report: CYTOPATHOLOGY REPORT ? [facility] EN ? LAB Reports generated via [employer] interface contain original data; ? however they are lacking the format of the original report. ? Caution should be taken when reading/interpreting unformatted reports. ? Name: ? ALMA THOMPSON ? Accession #: ? [id number] ? : ? 1945 (Age: 63) ??F ?Collect Date: ? 10/31/2008 ? Location: ? [facility] ? Receive Date: ? 11/01/2008 ? Provider: ?EMILEE M DO BBERTIN MD ? Copy to: ? Specimen/Source: ? Pap Test, Endocervix, ThinPrep Imaging System with ? manual evaluation ? Last Menstrual Period: ? Menstrual/ Status: ? Post Menopausal ? Other: ? HPVDX - HPV testing requeste d regardless of diagnosis on current ThinPrep Pap ?? test. ? SPECIMEN ADEQUACY ? Satisfactory for Eval uation ? - transformation zone compon ent present ? - scant squamous epithelial component ? GENERAL CATEGORIZATION ? Negative for Intraepi thelial Lesion or Malignancy ? Document reviewed and electr onically signed by: ? Zuleima Wilfredo, CT(ASCP ) ? Report Date: ??11/03/ 2008 08:44 ? End of Report ? Specimen Performing Organization Address City/State/ZIP Code Phon e Number [facility] [address] [place] [address] SERVICES [facility] [address] [place] [address] documented in this encounter Visit Diagnoses Not on filedocumented in this encounter Care Teams Scenery Builder Relationship Specialty Start Date End Date Unknown, Provider, PCP - General 11/01/08 documented as of this encounter
--- OUTSIDE RECORDS SUMMARY | 2022-03-08 02:03 | XMS_ITS | Clinical Summary ---
:1945 Author Organization [facility] Address [address] [place] [address] Care Team Providers Name Role Phone Unknown, Provider Primary Care Provider Social History Tobacco Use Types Packs/Day Years Used Date Never Assessed Sex Assigned at Date Recorded Not on file Plan of Treatment Health Maintenance Due Date Last Done Comments Fall Risk Screening 2008 Care Teams Corn Chip Maker Relationship Specialty Start Date End Date Unknown, ProviderMD PCP - General 11/01/08
--- OUTSIDE RECORDS SUMMARY | 2022-03-08 02:03 | XMS_ITS | Encounter Summary ---
:1945 Author Organization [facility] Address [address] [place] [address] Care Team Providers Name Role Phone Unknown, Provider Primary Care Provider Encounter Details Date Type Department Care Team Description 09/07/2014 Hospital Encounter [facility]- [place] Unknown, Provider, [facility] [address] [place] [address] [place] [address] (Work) [phone] Social History Tobacco Use Types Packs/Day Years Used Date Never Assessed Sex Assigned at Date Recorded Not on file documented as of this encounter Discharge Disposition Disposition Code Departure Means Destination Home or Self [facility] documented in this encounter Plan of Treatment Not on filedocumented as of this encounter Visit Diagnoses Not on filedocumented in this encounter Care Teams Gerontological Nurse Practitioner Relationship Specialty Start Date End Date Unknown, Provider, PCP - General 11/01/08 documented as of this encounter
[2022-03-08 12:57] LABS: HGB 12.8 g/dL (11.2-15.7); MCH 30.8 pg (27.0-33.0); MCHC 33.7 % (32.0-36.0); MCV 92 fL (80-95); MPV 9.3 fL (8.0-11.0); Platelet Count 222 10^3/uL (130-400); RBC 4.15 10^6/uL (3.93-5.22); RDW 13.4 % (11.7-14.6); RDW-SD 45.5 fL; WBC 7.07 10^3/uL (4.4-10.8)
[2022-03-08 13:50] LABS: ALT 25 U/L (14-59); AST 32 U/L (15-37); Alkaline Phosphatase 133 U/L (46-116); Anion Gap 6.8 mmol/L (3-11); BUN 16 mg/dL (7-18); Bilirubin, Total 0.6 mg/dL (0.2-1.0); CO2 28.2 mmol/L (21.0-32.0); CREATININE 0.7 mg/dL (0.55-1.02); Calcium 9.2 mg/dL (8.5-10.1); Calculated LDL 69 mg/dL (<100); Chloride 105 mmol/L (98-107); Cholesterol 158 mg/dL (<200); Estimated GFR 88.47 (mL/min/1.73m2); Glucose 116 mg/dL (74-106); HDL Cholesterol 69 mg/dL (40-60); Potassium 4.2 mmol/L (3.5-5.1); Sodium 140 mmol/L (136-145); TSH (W/Ref FT4) 2.06 uIU/mL (0.36-3.74); Total Protein 7.5 g/dL (6.4-8.2); Triglyceride 100 mg/dL (<150)
== END 2022-03-08 01:52 | disposition home or self-care (01) ==
LOC: LBO 01:53
PROVIDERS: PCP Family Medicine; Visit Provider Family Medicine
DX: E03.9 Hypothyroidism, unspecified (principal); E78.5 Hyperlipidemia, unspecified; I10 Essential (primary) hypertension; I25.10 Atherosclerotic heart disease of native coronary artery without angina pectoris; M20.11 Hallux valgus (acquired), right foot; J45.909 Unspecified asthma, uncomplicated
CPT/HCPCS: 36415; 80053; 80061; 85027; 84443

== ENCOUNTER 2022-07-04 12:17 | Outpatient (CLI) | payer MEDICARE, SELFPAY ==
--- NOTE | 2022-07-04 12:10 | DI.RAD_ITS ---
Exam(s) XR FOOT RT COMPLETE EXAM: XR FOOT RT COMPLETE CLINICAL HISTORY: R foot pain, M79.673. TECHNIQUE: 2D digital imaging was performed of the right foot. Three images were obtained. AP, obl ique and lateral views were obtained. COMPARISON: CR RIGHT FOOT COMPLETE from 11/29/2014 FINDINGS: BONES: On the AP view there appears to be disruption of the cortex laterally of the proximal phalanx of the 4th toe suspicious for nondisplaced fracture. Hammertoe deformities are present. There is a plantar calcaneal spur. No bony destructive lesion is seen. The bones are osteopenic. JOINTS: No dislocation present. There is again seen loss of the plantar arch. Degenerative changes a re seen in the tarsal bones and the 1st MTP joint. SOFT TISSUE: Normal. IMPRESSION: 1. Chronic deformity of the right foot. 2. Question of a nondisplaced fracture involving the proximal phalanx of the 4th toe. 3. Osteopenia and degenerative changes. DATA REPOSITORY: RADIATION DOSE DELIVERED:
== END 2022-07-04 12:37 ==
LOC: DI 12:29
PROVIDERS: PCP Family Medicine; Visit Provider Podiatrist Foot & Ankle Surgery
DX: M79.671 Pain in right foot (principal); M20.41 Other hammer toe(s) (acquired), right foot; M77.31 Calcaneal spur, right foot; M85.88 Other specified disorders of bone density and structure, other site; M19.071 Primary osteoarthritis, right ankle and foot; M20.5X1 Other deformities of toe(s) (acquired), right foot
CPT/HCPCS: 73630

== ENCOUNTER 2023-02-13 04:17 | Outpatient (CLI) | payer MEDICARE, SELFPAY ==
[2023-02-13 13:57] LABS: ALT 28 U/L (14-59); AST 29 U/L (15-37); Albumin 3.6 g/dL (3.4-5.0); Alkaline Phosphatase 117 U/L (46-116); Anion Gap 6.2 mmol/L (3-11); BUN 15 mg/dL (7-18); Bilirubin, Total 0.7 mg/dL (0.2-1.0); CO2 27.8 mmol/L (21.0-32.0); CREATININE 0.6 mg/dL (0.55-1.02); Calcium 9.2 mg/dL (8.5-10.1); Calculated LDL 69 mg/dL (<100); Chloride 105 mmol/L (98-107); Cholesterol 148 mg/dL (<200); Estimated GFR 91.25 (mL/min/1.73m2); Glucose 104 mg/dL (74-106); HDL Cholesterol 61 mg/dL (40-60); Sodium 139 mmol/L (136-145); TSH (W/Ref FT4) 0.86 uIU/mL (0.36-3.74); Total Protein 7.2 g/dL (6.4-8.2); Triglyceride 94 mg/dL (<150)
== END 2023-02-13 04:18 | disposition home or self-care (01) ==
PROVIDERS: PCP Family Medicine; Visit Provider Family Medicine
DX: I10 Essential (primary) hypertension (principal); E03.9 Hypothyroidism, unspecified
CPT/HCPCS: 36415; 80053; 80061; 84443

== ENCOUNTER → 2023-04-23 03:05 | Outpatient (CLI) | payer MEDICARE, SELFPAY ==
--- NOTE | 2023-04-23 08:46 | DI.RAD_ITS ---
Exam(s) XR FOOT RT COMPLETE EXAM: XR FOOT RT COMPLETE CLINICAL HISTORY: Right foot pain,m79.671. TECHNIQUE: 2D digital imaging was performed. Three views. COMPARISON: CR XR FOOT RT COMPLETE from 07/04/2022 FINDINGS: BONES: No acute fracture is present. No bony destructive lesion is seen. Bones appear osteopenic. P lantar calcaneal spur. JOINTS: No dislocation present. Hammertoe deformities. Degenerative changes 1st MTP joint and mild hallux valgus. Degenerative changes also noted in the inter tarsal joints, greatest at talonavicular joint. Severe pes planus. SOFT TISSUE: Normal. IMPRESSION: Degenerative changes and pes planus. DATA REPOSITORY: RADIATION DOSE DELIVERED:
== END ==
PROVIDERS: PCP Family Medicine; Visit Provider Podiatrist
DX: M79.671 Pain in right foot (principal); M21.41 Flat foot [pes planus] (acquired), right foot
CPT/HCPCS: 73630

== ENCOUNTER → 2023-07-23 09:55 | Outpatient (BNVA) | payer MEDICARE, SELFPAY | PROVIDERS: PCP Family Medicine; Referring Provider Family Medicine; Visit Provider Podiatrist | DX: B35.1 Tinea unguium; L60.3 Nail dystrophy; Q82.8 Other specified congenital malformations of skin; L84 Corns and callosities; M79.671 Pain in right foot; M79.672 Pain in left foot; G57.51 Tarsal tunnel syndrome, right lower limb | CPT/HCPCS: 17110 ==

== ENCOUNTER → 2023-11-25 10:23 | Outpatient (BNVA) | payer MEDICARE, SELFPAY | PROVIDERS: PCP Family Medicine; Referring Provider Family Medicine; Visit Provider Podiatrist | DX: B07.0 Plantar wart (principal); B35.1 Tinea unguium; L60.3 Nail dystrophy; Q82.8 Other specified congenital malformations of skin; L84 Corns and callosities; M79.671 Pain in right foot; M79.672 Pain in left foot; G57.51 Tarsal tunnel syndrome, right lower limb | CPT/HCPCS: 17110 ==

== ENCOUNTER → 2023-12-16 14:01 | Outpatient (BNVA) | payer MEDICARE, SELFPAY | PROVIDERS: PCP Family Medicine; Referring Provider Family Medicine; Visit Provider Podiatrist | DX: B07.0 Plantar wart (principal); B35.1 Tinea unguium; L60.3 Nail dystrophy; L84 Corns and callosities; M79.671 Pain in right foot; M79.672 Pain in left foot; G57.51 Tarsal tunnel syndrome, right lower limb | CPT/HCPCS: 17110 ==

== ENCOUNTER → 2024-01-07 10:28 | Outpatient (BNVA) | payer MEDICARE, SELFPAY | PROVIDERS: PCP Family Medicine; Referring Provider Family Medicine; Visit Provider Podiatrist | DX: B07.0 Plantar wart (principal); B35.1 Tinea unguium; L60.3 Nail dystrophy; Q82.8 Other specified congenital malformations of skin; L84 Corns and callosities; M79.671 Pain in right foot; M79.672 Pain in left foot; G57.51 Tarsal tunnel syndrome, right lower limb | CPT/HCPCS: 17110 ==

== ENCOUNTER → 2024-02-02 12:46 | Outpatient (BNVA) | payer MEDICARE, SELFPAY | PROVIDERS: PCP Family Medicine; Referring Provider Family Medicine; Visit Provider Podiatrist | DX: B07.0 Plantar wart (principal); B35.1 Tinea unguium; L60.3 Nail dystrophy; Q82.8 Other specified congenital malformations of skin; L84 Corns and callosities; M79.671 Pain in right foot; M79.672 Pain in left foot; G57.51 Tarsal tunnel syndrome, right lower limb | CPT/HCPCS: 17110 ==

== ENCOUNTER → 2024-03-24 11:21 | Outpatient (BNVA) | payer MEDICARE, SELFPAY | PROVIDERS: PCP Family Medicine; Referring Provider Family Medicine; Visit Provider Podiatrist | DX: B07.0 Plantar wart (principal); M79.671 Pain in right foot; M79.672 Pain in left foot; L84 Corns and callosities; E53.8 Deficiency of other specified B group vitamins; R09.89 Other specified symptoms and signs involving the circulatory and respiratory systems; R20.8 Other disturbances of skin sensation; L65.9 Nonscarring hair loss, unspecified; R20.2 Paresthesia of skin; L60.3 Nail dystrophy; B35.1 Tinea unguium; L60.8 Other nail disorders | CPT/HCPCS: 11056; 11719; 11720; 17110 ==

== ENCOUNTER → 2024-08-11 13:02 | Outpatient (BNVA) | payer MEDICARE, SELFPAY | PROVIDERS: PCP Family Medicine; Referring Provider Family Medicine; Visit Provider Physical Therapy Assistant | DX: I73.9 Peripheral vascular disease, unspecified (principal) | CPT/HCPCS: 93922 ==

== ENCOUNTER 2024-08-26 01:03 | Outpatient (CLI) | payer MEDICARE, SELFPAY ==
[2024-08-26 12:44] LABS: HCT 39.7 % (36.0-46.0); MCH 29.8 pg (27.0-33.0); MCHC 32.7 % (32.0-36.0); MCV 91 fL (80-95); MPV 10.1 fL (8.0-11.0); Platelet Count 224 10^3/uL (130-400); RBC 4.36 10^6/uL (3.93-5.22); RDW 13.6 % (11.7-14.6); RDW-SD 46.3 fL; WBC 5.37 10^3/uL (4.4-10.8)
[2024-08-26 13:05] LABS: ALT 23 U/L (14-59); AST 24 U/L (15-37); Albumin 3.8 g/dL (3.4-5.0); Alkaline Phosphatase 99 U/L (46-116); Anion Gap 8.3 mmol/L (3-11); BUN 16 mg/dL (7-18); Bilirubin, Total 0.8 mg/dL (0.2-1.0); CO2 28.7 mmol/L (21.0-32.0); CREATININE 0.8 mg/dL (0.55-1.02); Calculated LDL 152 mg/dL (<100); Chloride 108 mmol/L (98-107); Cholesterol 247 mg/dL (<200); Estimated GFR 73.98 (mL/min/1.73m2); Glucose 102 mg/dL (74-106); HDL Cholesterol 64 mg/dL (>or=50); Potassium 3.9 mmol/L (3.5-5.1); Sodium 145 mmol/L (136-145); TSH (W/Ref FT4) 1.97 uIU/mL (0.36-3.74); Total Protein 7.3 g/dL (6.4-8.2); Triglyceride 158 mg/dL (<150)
== END 2024-08-26 01:04 | disposition home or self-care (01) ==
LOC: LOS 01:03
PROVIDERS: PCP Family Medicine; Visit Provider Family Medicine
DX: I10 Essential (primary) hypertension (principal); E03.9 Hypothyroidism, unspecified; Z79.01 Long term (current) use of anticoagulants
CPT/HCPCS: 36415; 80053; 80061; 85027; 84443

== ENCOUNTER → 2024-09-01 11:24 | Outpatient (BNVA) | payer MEDICARE, SELFPAY | PROVIDERS: PCP Family Medicine; Referring Provider Family Medicine; Visit Provider Podiatrist | DX: M79.671 Pain in right foot (principal); M79.672 Pain in left foot; B07.0 Plantar wart; B35.1 Tinea unguium; L84 Corns and callosities; L60.3 Nail dystrophy; R26.89 Other abnormalities of gait and mobility; D51.1 Vitamin B12 deficiency anemia due to selective vitamin B12 malabsorption with proteinuria; I73.89 Other specified peripheral vascular diseases | CPT/HCPCS: 17110; 99213 ==

== ENCOUNTER → 2024-10-12 14:19 | Outpatient (BNVA) | payer MEDICARE, SELFPAY | PROVIDERS: PCP Family Medicine; Referring Provider Family Medicine; Visit Provider Podiatrist | DX: B07.0 Plantar wart (principal); M79.671 Pain in right foot; M79.672 Pain in left foot; B35.1 Tinea unguium; L84 Corns and callosities; L60.3 Nail dystrophy; R26.89 Other abnormalities of gait and mobility; D51.1 Vitamin B12 deficiency anemia due to selective vitamin B12 malabsorption with proteinuria; I73.89 Other specified peripheral vascular diseases | CPT/HCPCS: 17110 ==

== ENCOUNTER → 2024-10-26 10:29 | Outpatient (BNVA) | payer MEDICARE, SELFPAY | PROVIDERS: PCP Family Medicine; Referring Provider Family Medicine; Visit Provider Podiatrist | DX: B07.0 Plantar wart (principal); M79.671 Pain in right foot; M79.672 Pain in left foot; B35.1 Tinea unguium; L60.3 Nail dystrophy; L84 Corns and callosities; R26.89 Other abnormalities of gait and mobility; E53.8 Deficiency of other specified B group vitamins; I73.89 Other specified peripheral vascular diseases; M20.42 Other hammer toe(s) (acquired), left foot; M20.41 Other hammer toe(s) (acquired), right foot | CPT/HCPCS: 99213 ==

== ENCOUNTER → 2024-11-24 10:05 | Outpatient (BNVA) | payer MEDICARE, SELFPAY | PROVIDERS: PCP Family Medicine; Referring Provider Family Medicine; Visit Provider Podiatrist | DX: B35.1 Tinea unguium (principal); M79.671 Pain in right foot; M79.672 Pain in left foot; B07.0 Plantar wart; R26.89 Other abnormalities of gait and mobility; L84 Corns and callosities; D51.1 Vitamin B12 deficiency anemia due to selective vitamin B12 malabsorption with proteinuria; I73.89 Other specified peripheral vascular diseases; R09.89 Other specified symptoms and signs involving the circulatory and respiratory systems; R20.8 Other disturbances of skin sensation; R23.8 Other skin changes; L65.9 Nonscarring hair loss, unspecified; L60.2 Onychogryphosis; L60.8 Other nail disorders | CPT/HCPCS: 11719; 17110 ==

== ENCOUNTER → 2025-01-04 15:18 | Outpatient (BNVA) | payer MEDICARE, SELFPAY | PROVIDERS: PCP Family Medicine; Referring Provider Family Medicine; Visit Provider Podiatrist | DX: B07.0 Plantar wart (principal); M79.671 Pain in right foot; M79.672 Pain in left foot; B35.1 Tinea unguium; L84 Corns and callosities; R26.89 Other abnormalities of gait and mobility; D51.1 Vitamin B12 deficiency anemia due to selective vitamin B12 malabsorption with proteinuria; I73.89 Other specified peripheral vascular diseases | CPT/HCPCS: 17110 ==

== ENCOUNTER 2025-01-11 17:46 | Outpatient (REF) | payer MEDICARE, SELFPAY | END 2025-01-11 17:47 | disposition home or self-care (01) | LOC: LBN 17:46 | PROVIDERS: PCP Family Medicine; Visit Provider Family Medicine | DX: R41.0 Disorientation, unspecified (principal) | CPT/HCPCS: 87086 ==

== ENCOUNTER → 2025-02-07 14:55 | Outpatient (BNVA) | payer MEDICARE, SELFPAY | PROVIDERS: PCP Family Medicine; Referring Provider Family Medicine; Visit Provider Podiatrist | DX: B07.0 Plantar wart (principal); M79.671 Pain in right foot; M79.672 Pain in left foot; B35.1 Tinea unguium; L84 Corns and callosities; R26.89 Other abnormalities of gait and mobility; D51.1 Vitamin B12 deficiency anemia due to selective vitamin B12 malabsorption with proteinuria; I73.89 Other specified peripheral vascular diseases | CPT/HCPCS: 17110 ==

== ENCOUNTER → 2025-03-08 15:44 | Outpatient (BNVA) | payer MEDICARE, SELFPAY | PROVIDERS: PCP Family Medicine; Referring Provider Family Medicine; Visit Provider Podiatrist | DX: B07.0 Plantar wart (principal); M79.671 Pain in right foot; M79.672 Pain in left foot; B35.1 Tinea unguium; L84 Corns and callosities; R26.89 Other abnormalities of gait and mobility; D51.1 Vitamin B12 deficiency anemia due to selective vitamin B12 malabsorption with proteinuria; I73.89 Other specified peripheral vascular diseases; R09.89 Other specified symptoms and signs involving the circulatory and respiratory systems; R20.8 Other disturbances of skin sensation; R23.8 Other skin changes; L85.8 Other specified epidermal thickening; L65.9 Nonscarring hair loss, unspecified; L60.8 Other nail disorders; L60.2 Onychogryphosis | CPT/HCPCS: 11719; 17110 ==